=== PATIENT | male | born 1985 | race Caucasian/White ===

== ENCOUNTER 2016-07-27 08:25 | Inpatient (IN) | payer MEDICARE, MEDICAID ==
[~2016-07-27] VITALS: Ht 182.9 cm; Wt 93.6 kg
[2016-07-27 08:28] VITALS: Ht 182.9 cm; Wt 93.6 kg
[2016-07-27] MEDS ORDERED: HYDROmorphONE 1 MG/ML SYG IV STA ×2 (08:39→10:47)
[2016-07-27] MEDS ORDERED: ONDANSETRON 4 MG INJ IV STA (08:39)
[2016-07-27] MEDS ORDERED: SOD CHLORIDE 0.9% 1,000 ML IV STA ×2 (08:39→10:47)
[2016-07-27 09:02] LABS: ADD SCAN DIFF NO
[2016-07-27 09:07] LABS: ABNORMAL IP MESSAGE 1; BASOPHIL # 0.1 10^3/ul (0.0-0.1); BASOPHILS % 0.9 % (0.0-2.0); EOSINOPHILS # 0.3 10^3/ul (0.0-0.5); EOSINOPHILS % 2.3 % (0.0-7.0); HEMATOCRIT 41.2 % (42.0-52.0); HEMOGLOBIN 13.7 g/dl (14.0-18.0); LYMPHOCYTES # 1.3 10^3/ul (0.8-2.9); LYMPHOCYTES % 11.5 % (15.0-51.0); MEAN CORPUSCULAR HEMOGLOBIN 29.3 pg (29.0-33.0); MEAN CORPUSCULAR HGB CONC 33.3 g/dl (32.0-37.0); MEAN CORPUSCULAR VOLUME 88.2 fl (82.0-101.0); MEAN PLATELET VOLUME 13.8 fl (7.4-10.4); MONOCYTE # 0.5 10^3/ul (0.3-0.9); NEUTROPHIL # 8.7 10^3/ul (1.6-7.5); NEUTROPHILS % 79.7 % (39.0-77.0); PLATELET COUNT 252 10^3/UL (140-415); RED BLOOD COUNT 4.67 10^6/ul (4.70-6.10); WHITE BLOOD COUNT 10.9 10^3/ul (4.8-10.8)
[2016-07-27 09:17] LABS: INR 0.82; PARTIAL THROMBOPLASTIN TIME 25.6 Sec (25.0-35.0); PROTIME 11.3 Sec (12.2-14.2); PT RATIO 0.9
[2016-07-27 09:19] LABS: ALANINE AMINOTRANSFERASE 106 IU/L (13-69); ALBUMIN 3.2 g/dl (3.3-4.9); ALBUMIN/GLOBULIN RATIO 0.91; ALKALINE PHOSPHATASE 240 IU/L (42-121); ANION GAP 9 (8-16); ASPARTATE AMINO TRANSFERASE 90 IU/L (15-46); BILIRUBIN,INDIRECT 0.1 mg/dl (0-1.1); BILIRUBIN,TOTAL 0.1 mg/dl (0.2-1.3); BLOOD UREA NITROGEN 21 mg/dl (7-20); CALCIUM 8.7 mg/dl (8.4-10.2); CARBON DIOXIDE 24 mmol/L (21-31); CHLORIDE 106 mmol/L (97-110); CREATININE 2.13 mg/dl (0.61-1.24); GLUCOSE 397 mg/dl (70-220); POTASSIUM 4.6 mmol/L (3.5-5.1); SODIUM 134 mmol/L (135-144); TOTAL PROTEIN 6.7 g/dl (6.1-8.1)
--- NOTE | 2016-07-27 09:20 | ERD ---
ER Documentation Chief Complaint Date/Time DATE: 07/27/16 TIME: 09:19 Chief Complaint right flank pain onset 0400 HPI This is a 30-year-old male with history of diabetes type 2, hypertension, hyperlipidemia presenting to the emergency department complaining of chest pain , right upper quadrant and flank pain since 4:00 this morning. Patient states the pain is 10 out of 10 in his right upper quadrant and radiates to the flank and chest. He describes as sharp. Patient is complaining of nausea and vomiting.. He denies any fevers, diarrhea, shortness of breath. Patient denies taking any medications. Patient denies any alcohol use. Patient admits to having marijuana use. ROS All systems reviewed and are negative except as per history of present illness. Physical Exam Vitals Vital Signs Date Time Temp Pulse Resp B/P Pulse Ox O2 Delivery O2 Flow Rate FiO2 07/27/16 08:28 97.8 101 20 221/109 99 Physical Exam GENERAL: well-developed/well-nourished, in no apparent distress, non-toxic appearing HENT: NC/AT, moist mucous membranes EYES: Conjunctiva normal NECK: Supple, no lymphadenopathy PULM: CTA bilaterally, no rales, rhonchi, or wheezing heard CV: Normal S1S2, RRR, good capillary refill GI: Soft, tender to palpation upper quadrants, right is greater than all other quadrants, Normal bowel sounds, no masses or organomegaly felt on exam No gross peritonitis, no bruits Negative Rovsing, positive Diamond, negative McBurney's point, Negative CVAT BACK: No masses EXT: No clubbing, cyanosis, or edema NEURO: Alert and Orientated SKIN: Intact, normal turgor PSYCH: Normal mood and mentation Result Diagram: 07/27/16 0807/27/16 0855 Results 24 hrs Laboratory Tests Test 07/27/16 08:55 07/27/16 09:27 White Blood Count 10.910^3/ul Red Blood Count 4.6710^6/ul Hemoglobin 13.7g/dl Hematocrit 41.2% Mean Corpuscular Volume 88.2fl Mean Corpuscular Hemoglobin 29.3pg Mean Corpuscular Hemoglobin Concent 33.3g/dl Red Cell Distribution Width 13.0% Platelet Count 92771^3/UL Mean Platelet Volume 13.8fl Neutrophils % 79.7% Lymphocytes % 11.5% Monocytes % 5.0% Eosinophils % 2.3% Basophils % 0.9% Nucleated Red Blood Cells % 0.0/100WBC Neutrophils # 8.710^3/ul Lymphocytes # 1.310^3/ul Monocytes # 0.510^3/ul Eosinophils # 0.310^3/ul Basophils # 0.110^3/ul Nucleated Red Blood Cells # 0.010^3/ul Prothrombin Time 11.3Sec Prothrombin Time Ratio 0.9 INR International Normalized Ratio 0.82 Activated Partial Thromboplast Time 25.6Sec Sodium Level 134mmol/L Potassium Level 4.6mmol/L Chloride Level 106mmol/L Carbon Dioxide Level 24mmol/L Anion Gap 9 Blood Urea Nitrogen 21mg/dl Creatinine 2.13mg/dl Glucose Level 397mg/dl Calcium Level 8.7mg/dl Total Bilirubin 0.1mg/dl Direct Bilirubin 0.00mg/dl Indirect Bilirubin 0.1mg/dl Aspartate Amino Transf (AST/SGOT) 90IU/L Alanine Aminotransferase (ALT/SGPT) 106IU/L Alkaline Phosphatase 240IU/L Troponin I < 0.012ng/ml Total Protein 6.7g/dl Albumin 3.2g/dl Globulin 3.50g/dl Albumin/Globulin Ratio 0.91 Lipase 2131U/L Bedside Glucose 317mg/dL Current Medications Medications (Trade) Dose Ordered Sig/[place] Route PRN Reason Start Time Stop Time Status Last Admin Dose Admin Sodium Chloride (NS) 1,000 ml @ 1,000 mls/hr Q1H STAT IV 07/27/16 08:39 07/27/16 09:38 DC 07/27/16 09:05 Hydromorphone HCl (Dilaudid) 1 mg ONCE STAT IV 07/27/16 08:39 07/27/16 08:42 DC 07/27/16 09:05 Ondansetron HCl (Zofran Inj) 8 mg ONCE STAT IV 07/27/16 08:39 07/27/16 08:42 DC 07/27/16 09:05 Hydromorphone HCl 0.5 mg 0.5 mg ONCE STAT IV 07/27/16 10:47 07/27/16 10:48 DC Sodium Chloride (NS) 1,000 ml @ 1,000 mls/hr Q1H STAT IV 07/27/16 10:47 07/27/16 11:46 Procedures/MDM This is a 30-year-old male presenting to the emergency department complaining of right severe right upper quadrant abdominal pain that radiates to the chest and flank since 4:00 this morning due to pancreatitis, possibly due to cholelithiasis versus other. IV access was established, patient was given 1 mg of Dilaudid, 8 mg of Zofran and 1 L of fluids. Lab work was drawn. Patient had an elevation in lipase at 2131 which signifies pancreatitis. CBC showed mild leukocytosis of 10.9 without any evidence of anemia. Patient had elevated glucose of 397 with mild elevation in transaminases. BUN 21 and creatinine of 2.13 Gallbladder Ultrasound was done, radiologist stated: Cholelithiasis without evidence of abnormal gallbladder wall thickening to suggest cholecystitis. Normal caliber of the intrahepatic and extrahepatic biliary system. EKG: read and signed off by myself and Rate/Rhythm: Normal Sinus Rhythm at 86bpm QRS, ST, T-waves: Nonspecific T-wave changes in leads aVL, nonspecific QRS in V1, T-wave inversion in aVR Impression: No evidence of ischemia or arrhythmia I have consulted my supervising physician who will consult the hospitalist on site for admission. Patient is stable for transfer. Departure Diagnosis: Primary Impression: Pancreatitis Condition: Serious ZITA HO PA-C Jul 27, 2016 09:20
[2016-07-27 09:32] LABS: TROPONIN-I < 0.012 ng/ml (0.00-0.12)
--- NOTE | 2016-07-27 10:37 | RADRPT ---
PROCEDURE: Right upper quadrant abdominal ultrasound. CLINICAL INDICATION: Abdominal pain TECHNIQUE: Cancino scale and color doppler ultrasound images of the right upper quadrant. COMPARISON: None FINDINGS: Pancreas: Visualized portions appear of normal echogenicity, no focal lesions. Liver: Morphology: Minimally enlarged measuring 18.8 cm without focal lesion. Echogenicity: Normal. Focal lesions: None. Main portal vein: Patent with hepatopetal flow. Biliary System: Gallbladder wall thickness upper limits of normal measuring 2.5 - 3 mm. Multiple gallstones are present within the gallbladder. No intrahepatic biliary dilatation. Common bile duct measures 5.1 mm in maximal dimension. Kidneys: Right 12.3 cm in length. Right renal cortical thickness is preserved. Normal echogenicity. No hydronephrosis. No renal calculi. No focal lesions. No free fluid identified. IMPRESSION: Cholelithiasis without evidence of abnormal gallbladder wall thickening to suggest cholecystitis. Normal caliber of the intrahepatic and extrahepatic biliary system. RPTAT: AADD .Everton Caraballo MD, MD Date Time Electronically viewed and signed by .Everton Caraballo MD, on 07/27/2016 10:37 .B/
[2016-07-27] MEDS ORDERED: SOD CHLORIDE 0.9% 1,000 ML IV SCH (11:27)
[2016-07-27] MEDS ORDERED: ACETAMINOPHEN 325 MG TAB PO PRN ×2 (11:30→12:00)
[2016-07-27] MEDS ORDERED: ONDANSETRON 4 MG INJ IV PRN (11:30)
[2016-07-27] MEDS ORDERED: DOCUSATE SODIUM 100 MG CAP PO PRN (12:00)
[2016-07-27] MEDS ORDERED: LORAZEPAM 2 MG INJ IV PRN (12:00)
[2016-07-27] MEDS ORDERED: NICARDipine HCL 30 MG CAPSULE PO ONE (12:00)
[2016-07-27] MEDS ORDERED: NACL 0.9% 3 ML SYG IV SCH (12:00)
[2016-07-27] MEDS ORDERED: ACETAMINOPHEN 650 MG SUPP PR PRN (12:00)
[2016-07-27] MEDS ORDERED: BISACODYL 10 MG SUPP PR PRN (12:00)
[2016-07-27] MEDS ORDERED: DEXTROSE 50% 50 ML SYRINGE IV PRN ×2 (12:30)
[2016-07-27] MEDS ORDERED: GLUCOSE GEL 15 GRAM TUBE BUCCAL PRN (12:30)
[2016-07-27] MEDS ORDERED: GLUCAGON 1 MG INJ IM PRN (12:30)
[2016-07-27] MEDS ORDERED: GLUCOSE GEL 15 GRAM TUBE PO PRN ×2 (12:30)
[2016-07-27 13:46] LABS: ALBUMIN 3.1 g/dl (3.3-4.9); ALBUMIN/GLOBULIN RATIO 0.91; BILIRUBIN,INDIRECT 0.1 mg/dl (0-1.1); BILIRUBIN,TOTAL 0.1 mg/dl (0.2-1.3); CALCIUM 8.3 mg/dl (8.4-10.2); CREATININE 1.9 mg/dl (0.61-1.24); POTASSIUM 4.3 mmol/L (3.5-5.1); TOTAL PROTEIN 6.5 g/dl (6.1-8.1)
[2016-07-27] MEDS: SOD CHLORIDE 0.9% 1,000 ML IV SCH ×2 (13:58→20:30)
[2016-07-27 15:56] VITALS: BP 194/118
[2016-07-27 16:00] VITALS: BP 210/121; PULSE 113
[2016-07-27] MEDS: hydrALAzine 20 MG INJ IV PRN (16:01)
[2016-07-27 16:05] VITALS: BP 194/118; PULSE 113
--- NOTE | 2016-07-27 17:49 | CONS ---
Date/Time of Note Date/Time of Note DATE: 07/27/16 TIME: 17:47 Assessment/Plan Assessment/Plan Additional Assessment/Plan Abdominal pain/nausea/vomiting Pancreatitis Rule out choledocholithiasis IVF Hydration Nausea and pain control NPO till pain free Review MRCP ERCP if clinically indicated, pt advised of R/B/A of procedure and she provides informed consent to proceed Review triglycerides Monitor LFTs, amylase, lipase Surgery following Type 2 diabetes Management per Primary Accu-Cheks per protocol Obesity Management per Primary Encourage weight loss Question of alcoholism Management per Primary Review tox screen Further recommendations depend on clinical course Patient seen in collaboration with Dr. Castro Consultation Date/Type/Reason Admit Date/Time Jul 27, 2016 at 11:29 Type of Consultation: Gastroenterology Hx of Present Illness Mr. Lebron May is a 30-year-old male that presented to ED with reports of chest pain, right upper abdominal pain, nausea, nonbloody bilious vomiting 1 day. Patient denies fever, diarrhea, shortness of breath, any new medications, and current alcohol use. Patient admits to having marijuana use. Patient has past medical history of diabetes type 2, hypertension, and hyperlipidemia Exam/Review of Systems Vital Signs Vitals Vital Signs Date Time Temp Pulse Resp B/P Pulse Ox O2 Delivery O2 Flow Rate FiO2 07/27/16 16:05 113 194/118 07/27/16 14:55 18 98 Room Air 07/27/16 08:28 97.8 Exam Constitutional: alert, oriented, well developed Psych: nl mood/affect Head: normocephalic Eyes: EOMI, nl conjunctiva, nl lids ENMT: nl external ears & nose, nl lips & teeth, nl nasal mucosa & septum Respiratory: clear to auscultation, normal air movement Cardiovascular: regular rate and rhythm Gastrointestinal: soft, diffuse abdominal tenderness Musculoskeletal: nl extremities to inspection Neurological: COLOR [employer]INT INSPECTOR II-XII intact Results Result Diagram: 07/27/16 0855 07/27/16 1325 Results 24 hrs Laboratory Tests Test 07/27/16 08:55 07/27/16 09:27 07/27/16 13:25 07/27/16 17:18 White Blood Count 10.9 H Red Blood Count 4.67 L Hemoglobin 13.7 L Hematocrit 41.2 L Mean Corpuscular Volume 88.2 Mean Corpuscular Hemoglobin 29.3 Mean Corpuscular Hemoglobin Concent 33.3 Red Cell Distribution Width 13.0 Platelet Count 252 Mean Platelet Volume 13.8 H Neutrophils % 79.7 H Lymphocytes % 11.5 L Monocytes % 5.0 Eosinophils % 2.3 Basophils % 0.9 Nucleated Red Blood Cells % 0.0 Neutrophils # 8.7 H Lymphocytes # 1.3 Monocytes # 0.5 Eosinophils # 0.3 Basophils # 0.1 Nucleated Red Blood Cells # 0.0 Prothrombin Time 11.3 L Prothrombin Time Ratio 0.9 INR International Normalized Ratio 0.82 Activated Partial Thromboplast Time 25.6 Sodium Level 134 L 135 Potassium Level 4.6 4.3 Chloride Level 106 109 Carbon Dioxide Level 24 23 Anion Gap 9 7 L Blood Urea Nitrogen 21 H 19 Creatinine 2.13 H 1.90 H Glucose Level 397 H 325 H Calcium Level 8.7 8.3 L Total Bilirubin 0.1 L 0.1 L Direct Bilirubin 0.00 0.00 Indirect Bilirubin 0.1 0.1 Aspartate Amino Transf (AST/SGOT) 90 H 65 H Alanine Aminotransferase (ALT/SGPT) 106 H 87 H Alkaline Phosphatase 240 H 223 H Troponin I < 0.012 Total Protein 6.7 6.5 Albumin 3.2 L 3.1 L Globulin 3.50 H 3.40 H Albumin/Globulin Ratio 0.91 0.91 Lipase 2131 H Bedside Glucose 317 H 251 H Lactic Acid Level 0.7 Medications Medications Current Medications Sodium Chloride 1,000 ml @ 80 mls/hr [id number] IV ; Start 07/27/16 at 11:27; Stop 07/27/16 at 23:56 Sodium Chloride (NS) 1,000 ml @ 125 mls/hr Q8H IV Last administered on t 13:58; Admin Dose 125 MLS/HR; Start 07/27/16 at 12:30 Lorazepam (Ativan) 0.5 mg Q6H PRN IV ANXIETY; Start 07/27/16 at 12:00 Ondansetron HCl (Zofran Inj) 4 mg Q6H PRN IV NAUSEA AND/OR VOMITING; Start at 12:00 Acetaminophen (Tylenol Tab) 650 mg Q6H PRN PO PAIN LEVEL 1-3 OR FEVER; Start at 12:00 Acetaminophen (Tylenol Supp) 650 mg Q6H PRN [place] PAIN LEVEL 1-3 OR FEVER; Start 07/27/16 at 12:00 Morphine Sulfate (morphine) 2 mg Q4H PRN IV PAIN LEVEL 7-10; Start 07/27/16 at 12:00 Docusate Sodium (Colace) 100 mg Q12H PRN PO CONSTIPATION; Start 07/27/16 at 12: 00 Bisacodyl (Dulcolax Supp) 10 mg DAILY PRN [place] CONSTIPATION; Start 07/27/16 at 12 :00 Famotidine (Pepcid Iv) 20 mg Q12 IV ; Start 07/27/16 at 21:00 Insulin Aspart (Novolog Insulin Pen) NOVOLOG *MILD* ALGORI... Q4 SC ; Start at 21:00 Hydralazine HCl 10 mg 10 mg Q6H PRN IV ELEVATED BLOOD PRESSURE Last administered on 07/27/16t 16:01; Admin Dose 10 MG; Start 07/27/16 at 12:00 Multivitamins/ Thiamine HCl/ Folic Acid/Sodium Chloride (Mvi Adult/ Vitamin B1/ Folic Acid/NS) 1,011.2 ml @ 125 mls/ hr DAILY@09 IVPB ; Start 07/28/16 at 09:00 Hydralazine HCl (Apresoline) 25 mg Q8 PO ; Start 07/27/16 at 22:00 Miscellaneous Information 1 ea NOTE XX ; Start 07/27/16 at 12:30 Glucose (Glutose) 15 gm Q15M PRN PO DECREASED GLUCOSE; Start 07/27/16 at 12:30 Glucose (Glutose) 22.5 gm Q15M PRN PO DECREASED GLUCOSE; Start 07/27/16 at 12: 30 Dextrose (D50w Syringe) 25 ml Q15M PRN IV DECREASED GLUCOSE; Start 07/27/16 at 12:30 Dextrose (D50w Syringe) 50 ml Q15M PRN IV DECREASED GLUCOSE; Start 07/27/16 at 12:30 Glucagon (Glucagen) 1 mg Q15M PRN IM DECREASED GLUCOSE; Start 07/27/16 at 12:30 Glucose (Glutose) 15 gm Q15M PRN BUCCAL DECREASED GLUCOSE; Start 07/27/16 at 12 :30 Amlodipine Besylate (Norvasc) 10 mg DAILY PO ; Start 07/28/16 at 09:00 JENNIFER SMITH Jul 27, 2016 17:49
[2016-07-27] MEDS: morphine 2 MG INJ IV PRN ×2 (17:55→22:25)
[2016-07-27 18:04] VITALS: BP 174/106; PULSE 110; RESP 17
--- NOTE | 2016-07-27 18:43 | HP ---
Date/Time of Note Date/Time of Note DATE: 07/27/16 TIME: 17:53 Assessment/Plan VTE Prophylaxis VTE Prophylaxis Intervention: SCD's Lines/Catheters IV [facility]ter [facility]from [facility]): Peripheral IV Central line still needed: No Urinary Cath still in place: No Assessment/Plan Chief Complaint/Hosp Course This is a 30 year old male admitted to [facility] for: 1) Acute pancreatitis: gallstones vs. alcohol vs. triglycerides. U/S of RUQ showed gallstones. Will order MRCP to further assess. Trend LFTs, lipase, lactic acid. lipid panel. NPO, NS@125cc/hr, morphine 2mg q 4hrs, adjust pain meds for comfort. Check blood alcohol level, though patient denies recent alcohol use. Banana bag. GI consult . 2) DM : elevated blood sugars, insulin sliding scale, check a1c, will start DM meds/insulin as indicated, Avoid MASON/ARB as history of angiedema from MASON 3) TOM: patient is not aware of any kidney issues, however with his long standing history of HTN and DM we will assess for CKD. Recheck BMP follow Cr. Avoid MASON/ARB as history of angioedema from MAS[place], avoid nephrotoxins 4) Gallstones: ERCP ordered, GI consulted 5) HTN: start norvasc, hydralazine prn, Avoid MASON/ARB as history of angioedema from [place] 6)HLD: check lipid panel, likely will need statins as he has DM. 7) Lower extremity edema: patient reports chest pain occuring over the past 6 months with activity and rest, currently does not have any chest pain, Troponin negative x1. Will check an echocardiogram. And proceed with further evaluation as indicated. 8) DVT prophylaxis: SCDs 9) GI prophylaxis: famotidine IV Problems: HPI/ROS Admit Date/Time Admit Date/Time Jul 27, 2016 at 11:29 Hx of Present Illness This is a 30 year old male with a past medical history of DM, HLD, HTN who came into the ED with 1 day of abdominal pain. Patient states he was sleeping this morning and woke up to a sharp stabbing pain in the middle of his abdomen. It was 10/10 in intensity. He also then started having nausea and vomitting. He was brought to the ED by his parents. Since his admission he has not vomitted anymore, though he does feel nauseous. Allergies: benazepril (angioedema) Meds: currently not on any meds. ROS Constitutional: improved, nausea Eyes: other (left eye blindess (chronic)) ENT: No bleeding, No congestion, No discharge, No dysphagia, No no complaints, No other, No pain, No sore throat Respiratory: No cough, No no complaints, No other, No pain, No pleuritic pain, No shortness of breath, No sputum, No wheezing Cardiovascular: No chest pain, No edema, No lightheadedness, No no complaints, No orthopenea, No other, No palpitations, No paroxysmal nocturnal dyspnea Gastrointestinal: nausea, pain Genitourinary: No bleeding, No discharge, No dysuria, No flank pain, No hematuria, No no complaints, No other Musculoskeletal: No back pain, No bone/joint pain, No neck pain, No no complaints, No other, No restricted range of motion, No swelling Skin: No bruising, No erythema, No laceration, No no complaints, No other, No pruritis, No rash, No skin lesions Neurologic: No confusion, No dizziness, No focal-weakness, No headache, No no complaints, No other, No seizure, No syncope Endocrine: No dry skin, No no complaints, No other, No polydypsia, No polyuria , No temp intolerance, No weight change Psychological: depression (history of depression) PMH/Family/Social Past Medical History Medical History: diabetes, high cholesterol, hypertension, other (Left eye blindness 2/2 diabetic retinopathy, Appendicitis) Past Surgical History Multiple laser eye surgeries for diabetic retinopathy, appendectomy Family History Significant Family History: diabetes Social History Alcohol Use: other (States last drink was on New Years) Drug Use: marijuana Exam/Review of Systems Vital Signs Vitals Vital Signs Date Time Temp Pulse Resp B/P Pulse Ox O2 Delivery O2 Flow Rate FiO2 07/27/16 16:05 113 194/118 07/27/16 14:55 18 98 Room Air 07/27/16 08:28 97.8 Exam Exam general: Currently patient is in no acute distress, pleasant HEENT: left eye/eyelid abnormality, NC/AT, Neck: supple, non tender CVS: RRR, no murmurs appreciated Lungs: ctab, no rales, no wheezes Abdomen: tender to palpation at epigastrium/RUQ, positive bowel sounds, no ascites Extremities: trace edema of bilateral lower extremities at level of ankles, normal ROM of bilateral upper and lower extremities, normal sensation of feet bilaterally Neuro: A+O x 3, CN 2-12 intact, however unable to assess for left as due to blindness. Psych: coherent, pleasant interaction Skin: multiple tattoos, onychomycosis of feet bilaterally Labs Result Diagram: 07/27/16 0855 07/27/16 1325 Medications Medications Current Medications Sodium Chloride 1,000 ml @ 80 mls/hr [id number] IV ; Start 07/27/16 at 11:27; Stop 07/27/16 at 23:56 Sodium Chloride (NS) 1,000 ml @ 125 mls/hr Q8H IV Last administered on 13:58; Admin Dose 125 MLS/HR; Start 07/27/16 at 12:30 Lorazepam (Ativan) 0.5 mg Q6H PRN IV ANXIETY; Start 07/27/16 at 12:00 Ondansetron HCl (Zofran Inj) 4 mg Q6H PRN IV NAUSEA AND/OR VOMITING; Start at 12:00 Acetaminophen (Tylenol Tab) 650 mg Q6H PRN PO PAIN LEVEL 1-3 OR FEVER; Start at 12:00 Acetaminophen (Tylenol Supp) 650 mg Q6H PRN [place] PAIN LEVEL 1-3 OR FEVER; Start 07/27/16 at 12:00 Morphine Sulfate (morphine) 2 mg Q4H PRN IV PAIN LEVEL 7-10; Start 07/27/16 at 12:00 Docusate Sodium (Colace) 100 mg Q12H PRN PO CONSTIPATION; Start 07/27/16 at 12: 00 Bisacodyl (Dulcolax Supp) 10 mg DAILY PRN [place] CONSTIPATION; Start 07/27/16 at 12 :00 Famotidine (Pepcid Iv) 20 mg Q12 IV ; Start 07/27/16 at 21:00 Insulin Aspart (Novolog Insulin Pen) NOVOLOG *MILD* ALGORI... Q4 SC ; Start at 21:00 Hydralazine HCl 10 mg 10 mg Q6H PRN IV ELEVATED BLOOD PRESSURE Last administered on 07/27/16 16:01; Admin Dose 10 MG; Start 07/27/16 at 12:00 Multivitamins/ Thiamine HCl/ Folic Acid/Sodium Chloride (Mvi Adult/ Vitamin B1/ Folic Acid/NS) 1,011.2 ml @ 125 mls/ hr DAILY@09 IVPB ; Start 07/28/16 at 09:00 Hydralazine HCl (Apresoline) 25 mg Q8 PO ; Start 07/27/16 at 22:00 Miscellaneous Information 1 ea NOTE XX ; Start 07/27/16 at 12:30 Glucose (Glutose) 15 gm Q15M PRN PO DECREASED GLUCOSE; Start 07/27/16 at 12:30 Glucose (Glutose) 22.5 gm Q15M PRN PO DECREASED GLUCOSE; Start 07/27/16 at 12: 30 Dextrose (D50w Syringe) 25 ml Q15M PRN IV DECREASED GLUCOSE; Start 07/27/16 at 12:30 Dextrose (D50w Syringe) 50 ml Q15M PRN IV DECREASED GLUCOSE; Start 07/27/16 at 12:30 Glucagon (Glucagen) 1 mg Q15M PRN IM DECREASED GLUCOSE; Start 07/27/16 at 12:30 Glucose (Glutose) 15 gm Q15M PRN BUCCAL DECREASED GLUCOSE; Start 07/27/16 at 12 :30 Amlodipine Besylate (Norvasc) 10 mg DAILY PO ; Start 07/28/16 at 09:00 DANETTE GO Jul 27, 2016 18:04
[2016-07-27 20:00] VITALS: BP 220/126; PULSE 115; RESP 18
[2016-07-27 20:28] VITALS: BP 148/96; PULSE 119; RESP 20
[2016-07-27] MEDS: FAMOTIDINE 20 MG INJ IV SCH (21:09)
[2016-07-27] MEDS: ONDANSETRON 4 MG INJ IV PRN (22:25)
[2016-07-27] MEDS: INSULIN ASPART [NOVOLOG] 3 ML PEN SC SCH (22:35)
[2016-07-28] VITALS (17 sets, daily range): BP systolic 142–205; BP diastolic 77–112; PULSE 90–125; RESP 15–20
[2016-07-28] MEDS: hydrALAzine 20 MG INJ IV PRN ×4 (00:44→17:59)
[2016-07-28] MEDS: SOD CHLORIDE 0.9% 1,000 ML IV SCH ×3 (00:52→20:30)
[2016-07-28] MEDS: INSULIN ASPART [NOVOLOG] 3 ML PEN SC SCH ×6 (01:05→21:00)
[2016-07-28 07:12] LABS: ADD SCAN DIFF NO
[2016-07-28 07:21] LABS: ABNORMAL IP MESSAGE 1; BASOPHIL # 0.1 10^3/ul (0.0-0.1); BASOPHILS % 0.9 % (0.0-2.0); EOSINOPHILS # 0.2 10^3/ul (0.0-0.5); EOSINOPHILS % 2.1 % (0.0-7.0); HEMATOCRIT 36.7 % (42.0-52.0); HEMOGLOBIN 11.9 g/dl (14.0-18.0); LYMPHOCYTES # 1.7 10^3/ul (0.8-2.9); LYMPHOCYTES % 16.3 % (15.0-51.0); MEAN CORPUSCULAR HGB CONC 32.4 g/dl (32.0-37.0); MEAN CORPUSCULAR VOLUME 89.5 fl (82.0-101.0); MEAN PLATELET VOLUME 13.7 fl (7.4-10.4); MONOCYTE # 0.7 10^3/ul (0.3-0.9); MONOCYTES % 6.5 % (0.0-11.0); NEUTROPHIL # 7.7 10^3/ul (1.6-7.5); NEUTROPHILS % 73.8 % (39.0-77.0); PLATELET COUNT 214 10^3/UL (140-415); RED CELL DISTRIBUTION WIDTH 13.2 % (11.5-14.5); WHITE BLOOD COUNT 10.5 10^3/ul (4.8-10.8)
--- NOTE | 2016-07-28 07:33 | RADRPT ---
PROCEDURE: MR Abdomen. CLINICAL INDICATION: Abdominal pain. Gallstones. Question choledocholithiasis. Gallstone pancrea titis and elevated liver function tests. TECHNIQUE: Multiplanar multi sequence imaging of the abdomen without contrast. COMPARISON: Ultrasound from 07/27/2016 FINDINGS: MRI Abdomen: The study was limited to evaluation of the hepatobiliary system. Distended gallbladder with multipl e small stones is seen. Mildly thickened gallbladder wall. The study is significantly limited by b reathing motion. No gross biliary or pancreatic ductal dilatation is seen. It is difficult to excl ude tiny biliary duct stones given the degree of motion artifact present. No gross hepatic mass. The pancreas is diffusely enlarged and edematous with surrounding fluid consistent with acute pancreati tis. No focal fluid collection is seen. No gross abnormality of the spleen, adrenals, or kidneys is seen.. IMPRESSION: Acute pancreatitis. Peripancreatic fluid without definite focal loculated collection. Multiple sma ll gallstones. No biliary ductal dilatation. It is difficult to completely exclude choledocholithi asis given the degree of breathing motion artifact present.. CT of the abdomen pelvis with IV and o ral contrast may be helpful for evaluation of the solid intra-abdominal organs and to evaluate for p ancreatic necrosis or other pancreatitis related complications. RPTAT: HL[facility] Physician Whitney Date Time Electronically viewed and signed by Physician Whitney on 07/28/2016 07:32 LE/
[2016-07-28 07:41] LABS: ALBUMIN 2.3 g/dl (3.3-4.9); ALBUMIN/GLOBULIN RATIO 0.82; BILIRUBIN,INDIRECT 0.2 mg/dl (0-1.1); BILIRUBIN,TOTAL 0.2 mg/dl (0.2-1.3); CALCIUM 8.2 mg/dl (8.4-10.2); CHOL/HDL RATIO 6.4 RATIO; CREATININE 1.77 mg/dl (0.61-1.24); MAGNESIUM 1.8 mg/dl (1.7-2.5); POTASSIUM 4.3 mmol/L (3.5-5.1); TOTAL PROTEIN 5.1 g/dl (6.1-8.1)
[2016-07-28] MEDS: FAMOTIDINE 20 MG INJ IV SCH ×2 (08:08→21:01)
[2016-07-28] MEDS: AMLODIPINE 10 MG TAB PO SCH (08:09)
--- NOTE | 2016-07-28 08:14 | CONS ---
Date/Time of Note Date/Time of Note DATE: 07/28/16 TIME: 08:09 Assessment/Plan Assessment/Plan Chief Complaint/Hosp Course Mr. Lebron May is a 30-year-old male that presented to ED with reports of chest pain, right upper abdominal pain, nausea, nonbloody bilious vomiting 1 day. Patient denies fever, diarrhea, shortness of breath, any new medications, and current alcohol use. Patient admits to having marijuana use. Patient has past medical history of diabetes type 2, hypertension, and hyperlipidemia Problems: Additional Assessment/Plan Abdominal pain/nausea/vomiting Pancreatitis Rule out choledocholithiasis IVF Hydration Nausea and pain control NPO till pain free MRCP: Acute pancreatitis. Peripancreatic fluid without definite focal loculated collection. Multiple small gallstones. No biliary ductal dilatation. It is difficult to completely exclude choledocholithiasis given the degree of breathing motion artifact present. Review CT abdomen pelvis ERCP if clinically indicated, pt advised of R/B/A of procedure and she provides informed consent to proceed Monitor LFTs, amylase, lipase Surgery following Type 2 diabetes Management per Primary Accu-Cheks per protocol Obesity Management per Primary Encourage weight loss Question of alcoholism Management per Primary Review tox screen Further recommendations depend on clinical course Patient seen in collaboration with Dr. Castro Consultation Date/Type/Reason Admit Date/Time Jul 27, 2016 at 11:29 Initial Consult Date Type of Consultation: Gastroenterology 24 HR Interval Summary Free Text/Dictation Lipase within normal limits Patient reports diffuse abdominal pain MRCP unable to completely rule out choledocholithiasis CT abdomen pelvis with oral and IV contrast in process Exam/Review of Systems Vital Signs Vitals Vital Signs Date Time Temp Pulse Resp B/P Pulse Ox O2 Delivery O2 Flow Rate FiO2 07/28/16 07:17 98.3 101 18 174/96 96 07/27/16 20:28 Room Air Intake and Output 07/27/16 07/27/16 07/28/16 15:00 23:00 07:00 Intake Total 1125 ml Balance 1125 ml Exam Constitutional: alert, oriented, well developed Psych: nl mood/affect Head: normocephalic Eyes: EOMI, nl conjunctiva, nl lids ENMT: nl external ears & nose, nl lips & teeth, nl nasal mucosa & septum Respiratory: clear to auscultation, normal air movement Cardiovascular: regular rate and rhythm Gastrointestinal: soft, diffuse abdominal tenderness Musculoskeletal: nl extremities to inspection Neurological: [employer] II-XII intact Results Result Diagram: 07/28/16 0625 07/28/16 0625 Results 24 hrs Laboratory Tests Test 07/27/16 08:55 07/27/16 09:27 07/27/16 13:25 07/27/16 17:18 White Blood Count 10.9 H Red Blood Count 4.67 L Hemoglobin 13.7 L Hematocrit 41.2 L Mean Corpuscular Volume 88.2 Mean Corpuscular Hemoglobin 29.3 Mean Corpuscular Hemoglobin Concent 33.3 Red Cell Distribution Width 13.0 Platelet Count 252 Mean Platelet Volume 13.8 H Neutrophils % 79.7 H Lymphocytes % 11.5 L Monocytes % 5.0 Eosinophils % 2.3 Basophils % 0.9 Nucleated Red Blood Cells % 0.0 Neutrophils # 8.7 H Lymphocytes # 1.3 Monocytes # 0.5 Eosinophils # 0.3 Basophils # 0.1 Nucleated Red Blood Cells # 0.0 Prothrombin Time 11.3 L Prothrombin Time Ratio 0.9 INR International Normalized Ratio 0.82 Activated Partial Thromboplast Time 25.6 Sodium Level 134 L 135 Potassium Level 4.6 4.3 Chloride Level 106 109 Carbon Dioxide Level 24 23 Anion Gap 9 7 L Blood Urea Nitrogen 21 H 19 Creatinine 2.13 H 1.90 H Glucose Level 397 H 325 H Calcium Level 8.7 8.3 L Total Bilirubin 0.1 L 0.1 L Direct Bilirubin 0.00 0.00 Indirect Bilirubin 0.1 0.1 Aspartate Amino Transf (AST/SGOT) 90 H 65 H Alanine Aminotransferase (ALT/SGPT) 106 H 87 H Alkaline Phosphatase 240 H 223 H Troponin I < 0.012 Total Protein 6.7 6.5 Albumin 3.2 L 3.1 L Globulin 3.50 H 3.40 H Albumin/Globulin Ratio 0.91 0.91 Lipase 2131 H Bedside Glucose 317 H 251 H Lactic Acid Level 0.7 Test 07/27/16 18:18 07/27/16 22:23 07/28/16 00:59 07/28/16 05:01 Ethyl Alcohol Level < 10.0 Bedside Glucose 187 193 144 Test 07/28/16 06:25 07/28/16 07:29 White Blood Count 10.5 Red Blood Count 4.10 L Hemoglobin 11.9 L Hematocrit 36.7 L Mean Corpuscular Volume 89.5 Mean Corpuscular Hemoglobin 29.0 Mean Corpuscular Hemoglobin Concent 32.4 Red Cell Distribution Width 13.2 Platelet Count 214 Mean Platelet Volume 13.7 H Neutrophils % 73.8 Lymphocytes % 16.3 Monocytes % 6.5 Eosinophils % 2.1 Basophils % 0.9 Nucleated Red Blood Cells % 0.0 Neutrophils # 7.7 H Lymphocytes # 1.7 Monocytes # 0.7 Eosinophils # 0.2 Basophils # 0.1 Nucleated Red Blood Cells # 0.0 Sodium Level 138 Potassium Level 4.3 Chloride Level 114 H Carbon Dioxide Level 24 Anion Gap 4 L Blood Urea Nitrogen 15 Creatinine 1.77 H Glucose Level 169 # Calcium Level 8.2 L Magnesium Level 1.8 Total Bilirubin 0.2 Direct Bilirubin 0.00 Indirect Bilirubin 0.2 Aspartate Amino Transf (AST/SGOT) 22 # Alanine Aminotransferase (ALT/SGPT) 56 Alkaline Phosphatase 151 H Total Protein 5.1 #L Albumin 2.3 L Globulin 2.80 Albumin/Globulin Ratio 0.82 Triglycerides Level 192 H Cholesterol Level 187 LDL Cholesterol, Calculated 120 HDL Cholesterol 29 Cholesterol/HDL Ratio 6.4 Lipase 119 Bedside Glucose 149 Medications Medications Current Medications Sodium Chloride (NS) 1,000 ml @ 125 mls/hr Q8H IV Last administered on 00:52; Admin Dose 125 MLS/HR; Start 07/27/16 at 12:30 Lorazepam (Ativan) 0.5 mg Q6H PRN IV ANXIETY; Start 07/27/16 at 12:00 Ondansetron HCl (Zofran Inj) 4 mg Q6H PRN IV NAUSEA AND/OR VOMITING Last administered on 07/27/16 22:25; Admin Dose 4 MG; Start 07/27/16 at 12:00 Acetaminophen (Tylenol Tab) 650 mg Q6H PRN PO PAIN LEVEL 1-3 OR FEVER; Start at 12:00 Acetaminophen (Tylenol Supp) 650 mg Q6H PRN [place] PAIN LEVEL 1-3 OR FEVER; Start 07/27/16 at 12:00 Morphine Sulfate (morphine) 2 mg Q4H PRN IV PAIN LEVEL 7-10 Last administered on 07/27/16 22:25; Admin Dose 2 MG; Start 07/27/16 at 12:00 Docusate Sodium (Colace) 100 mg Q12H PRN PO CONSTIPATION; Start 07/27/16 at 12: 00 Bisacodyl (Dulcolax Supp) 10 mg DAILY PRN [place] CONSTIPATION; Start 07/27/16 at 12 :00 Famotidine (Pepcid Iv) 20 mg Q12 IV Last administered on 07/27/16 21:09; Admin Dose 20 MG; Start 07/27/16 at 21:00 Insulin Aspart (Novolog Insulin Pen) NOVOLOG *MILD* ALGORI... Q4 SC Last administered on 07/28/16 07:33; Admin Dose 1 UNIT; Start 07/27/16 at 21:00 Hydralazine HCl 10 mg 10 mg Q6H PRN IV ELEVATED BLOOD PRESSURE Last administered on 07/28/16 00:44; Admin Dose 10 MG; Start 07/27/16 at 12:00 Multivitamins/ Thiamine HCl/ Folic Acid/Sodium Chloride (Mvi Adult/ Vitamin B1/ Folic Acid/NS) 1,011.2 ml @ 125 mls/ hr DAILY@09 IVPB ; Start 07/28/16 at 09:00 Hydralazine HCl (Apresoline) 25 mg Q8 PO Last administered on 07/28/16 06:09; Admin Dose 25 MG; Start 07/27/16 at 22:00 Miscellaneous Information 1 ea NOTE XX ; Start 07/27/16 at 12:30 Glucose (Glutose) 15 gm Q15M PRN PO DECREASED GLUCOSE; Start 07/27/16 at 12:30 Glucose (Glutose) 22.5 gm Q15M PRN PO DECREASED GLUCOSE; Start 07/27/16 at 12: 30 Dextrose (D50w Syringe) 25 ml Q15M PRN IV DECREASED GLUCOSE; Start 07/27/16 at 12:30 Dextrose (D50w Syringe) 50 ml Q15M PRN IV DECREASED GLUCOSE; Start 07/27/16 at 12:30 Glucagon (Glucagen) 1 mg Q15M PRN IM DECREASED GLUCOSE; Start 07/27/16 at 12:30 Glucose (Glutose) 15 gm Q15M PRN BUCCAL DECREASED GLUCOSE; Start 07/27/16 at 12 :30 Amlodipine Besylate (Norvasc) 10 mg DAILY PO ; Start 07/28/16 at 09:00 JENNIFER SMITH Jul 28, 2016 08:14
[2016-07-28] MEDS ORDERED: BARIUM SULF 2% 450 ML BTL (BERRY SMOOTHIE) PO ONE (08:30)
[2016-07-28] MEDS: MULTIVITAMINS 10 ML, THIAMINE 100 MG, FOLIC ACID 1 MG in SOD CHLORIDE 0.9% 1,000 ML IVPB SCH (09:36)
[2016-07-28] MEDS: ONDANSETRON 4 MG INJ IV PRN (10:57)
[2016-07-28] MEDS: morphine 2 MG INJ IV PRN (10:57)
[2016-07-28] MEDS ORDERED: SOD CHLORIDE 0.9% 100 ML ONE (12:47)
[2016-07-28] MEDS ORDERED: IODIXANOL LOCM 100 ML BTL ONE (12:47)
--- NOTE | 2016-07-28 15:06 | PDOCDIS ---
Discharge Instructions CONDITION Patient Condition: Good HOME CARE INSTRUCTIONS: Special Diet: LOW CARB ACTIVITY: Activity Restrictions: No Restrictions FOLLOW UP/APPOINTMENTS Appointments F/U WITH YOUR PCP IN 1-2 WEEKS RAHAT LOU Jul 28, 2016 15:06
[2016-07-28] MEDS ORDERED: hydrALAzine 20 MG INJ ONE (16:02)
[2016-07-28] MEDS ORDERED: HYDROCHLOROTHIAZIDE 25 MG TAB PO ONE (17:00)
[2016-07-28] MEDS ORDERED: AMLODIPINE 10 MG TAB PO ONE (17:00)
--- NOTE | 2016-07-28 17:33 | PN ---
Date/Time of Note Date/Time of Note DATE: 07/28/16 TIME: 17:29 Assessment/Plan VTE Prophylaxis VTE Prophylaxis Intervention: SCD's Lines/Catheters IV C[facility] Type [facility] Saline Lock Urinary Cath still in place: No Assessment/Plan Chief Complaint/Hosp Course 1) Acute pancreatitis: gallstones vs. alcohol vs. triglycerides. U/S of RUQ showed gallstones MRCP shows no choledocholithiasis Start clear liquid diet as lipase is now normal 2) DM : Poorly controlled Lifestyle changes advised 3) TOM-improved 4) HTN: BP severely elevated at this time Resume Norvasc, hydralazine prn Avoid [facility]/ARB as history of angioedema from [facility] 5)HLD: Resume statin upon DC 7) Lower extremity edema: patient reports chest pain occurring over the past 6 months with activity and rest, currently does not have any chest pain, Troponin negative x1. Will check an echocardiogram. And proceed with further evaluation as indicated. 8) DVT prophylaxis: SCDs 9) GI prophylaxis: famotidine IV Problems: Subjective 24 Hr Interval Summary Constitutional: no complaints Exam/Review of Systems Vital Signs Vitals Vital Signs Date Time Temp Pulse Resp B/P Pulse Ox O2 Delivery O2 Flow Rate FiO2 07/28/16 17:01 112 182/101 07/28/16 11:33 98.0 18 96 07/27/16 20:28 Room Air Intake and Output 07/27/16 07/27/16 07/28/16 15:00 23:00 07:00 Intake Total 1125 ml Balance 1125 ml Exam Constitutional: alert, oriented Respiratory: clear to auscultation Cardiovascular: regular rate and rhythm Gastrointestinal: non-tender, soft, No distended Musculoskeletal: nl extremities to inspection Results Result Diagram: 07/28/16 0625 07/28/16 0625 Results 24 hrs Laboratory Tests Test 07/27/16 18:18 07/27/16 22:23 07/28/16 00:59 07/28/16 05:01 Ethyl Alcohol Level < 10.0 Bedside Glucose 187 193 144 Test 07/28/16 06:25 07/28/16 07:29 07/28/16 11:59 07/28/16 16:47 White Blood Count 10.5 Red Blood Count 4.10 L Hemoglobin 11.9 L Hematocrit 36.7 L Mean Corpuscular Volume 89.5 Mean Corpuscular Hemoglobin 29.0 Mean Corpuscular Hemoglobin Concent 32.4 Red Cell Distribution Width 13.2 Platelet Count 214 Mean Platelet Volume 13.7 H Neutrophils % 73.8 Lymphocytes % 16.3 Monocytes % 6.5 Eosinophils % 2.1 Basophils % 0.9 Nucleated Red Blood Cells % 0.0 Neutrophils # 7.7 H Lymphocytes # 1.7 Monocytes # 0.7 Eosinophils # 0.2 Basophils # 0.1 Nucleated Red Blood Cells # 0.0 Sodium Level 138 Potassium Level 4.3 Chloride Level 114 H Carbon Dioxide Level 24 Anion Gap 4 L Blood Urea Nitrogen 15 Creatinine 1.77 H Glucose Level 169 # Hemoglobin A1c 9.9 H Calcium Level 8.2 L Magnesium Level 1.8 Total Bilirubin 0.2 Direct Bilirubin 0.00 Indirect Bilirubin 0.2 Aspartate Amino Transf (AST/SGOT) 22 # Alanine Aminotransferase (ALT/SGPT) 56 Alkaline Phosphatase 151 H Total Protein 5.1 #L Albumin 2.3 L Globulin 2.80 Albumin/Globulin Ratio 0.82 Triglycerides Level 192 H Cholesterol Level 187 LDL Cholesterol, Calculated 120 HDL Cholesterol 29 Cholesterol/HDL Ratio 6.4 Lipase 119 Bedside Glucose 149 169 139 Medications Medications Current Medications Sodium Chloride (NS) 1,000 ml @ 125 mls/hr Q8H IV Last administered on 12:02; Admin Dose 125 MLS/HR; Start 07/27/16 at 12:30 Lorazepam (Ativan) 0.5 mg Q6H PRN IV ANXIETY; Start 07/27/16 at 12:00 Ondansetron HCl (Zofran Inj) 4 mg Q6H PRN IV NAUSEA AND/OR VOMITING Last administered on 07/28/16 10:57; Admin Dose 4 MG; Start 07/27/16 at 12:00 Acetaminophen (Tylenol Tab) 650 mg Q6H PRN PO PAIN LEVEL 1-3 OR FEVER; Start at 12:00 Acetaminophen (Tylenol Supp) 650 mg Q6H PRN [place] PAIN LEVEL 1-3 OR FEVER; Start 07/27/16 at 12:00 Morphine Sulfate (morphine) 2 mg Q4H PRN IV PAIN LEVEL 7-10 Last administered on 07/28/16 10:57; Admin Dose 2 MG; Start 07/27/16 at 12:00 Docusate Sodium (Colace) 100 mg Q12H PRN PO CONSTIPATION; Start 07/27/16 at 12: 00 Bisacodyl (Dulcolax Supp) 10 mg DAILY PRN [place] CONSTIPATION; Start 07/27/16 at 12 :00 Famotidine (Pepcid Iv) 20 mg Q12 IV Last administered on 07/28/16 08:08; Admin Dose 20 MG; Start 07/27/16 at 21:00 Insulin Aspart NOVOLOG *MILD* ALGORI... Q4 SC Last administered on 07/28/16 12 :06; Admin Dose 1 UNIT; Start 07/27/16 at 21:00 Multivitamins/ Thiamine HCl/ Folic Acid/Sodium Chloride (Mvi Adult/ Vitamin B1/ Folic Acid/NS) 1,011.2 ml @ 125 mls/ hr DAILY@09 IVPB Last administered on 09:36; Admin Dose 125 MLS/HR; Start 07/28/16 at 09:00 Hydralazine HCl (Apresoline) 25 mg Q8 PO Last administered on 07/28/16 14:12; Admin Dose 25 MG; Start 07/27/16 at 22:00 Miscellaneous Information 1 ea NOTE XX ; Start 07/27/16 at 12:30 Glucose (Glutose) 15 gm Q15M PRN PO DECREASED GLUCOSE; Start 07/27/16 at 12:30 Glucose (Glutose) 22.5 gm Q15M PRN PO DECREASED GLUCOSE; Start 07/27/16 at 12: 30 Dextrose (D50w Syringe) 25 ml Q15M PRN IV DECREASED GLUCOSE; Start 07/27/16 at 12:30 Dextrose (D50w Syringe) 50 ml Q15M PRN IV DECREASED GLUCOSE; Start 07/27/16 at 12:30 Glucagon (Glucagen) 1 mg Q15M PRN IM DECREASED GLUCOSE; Start 07/27/16 at 12:30 Glucose (Glutose) 15 gm Q15M PRN BUCCAL DECREASED GLUCOSE; Start 07/27/16 at 12 :30 Amlodipine Besylate (Norvasc) 10 mg DAILY PO Last administered on 07/28/16 08: 09; Admin Dose 10 MG; Start 07/28/16 at 09:00 Hydralazine HCl (Apresoline) 10 mg Q2H PRN IV bp above 160/100 Last administered on 4/29/17at 16:04; Admin Dose 10 MG; Start 07/28/16 at 17:00 RAHAT LOU Jul 28, 2016 17:33
[2016-07-28 20:10] LABS: BARBITURATES NEGATIVE (NEGATIVE); BENZODIAZEPINES NEGATIVE (NEGATIVE); CANNABINOIDS POSITIVE (NEGATIVE)
[2016-07-28 20:11] LABS: COCAINE NEGATIVE (NEGATIVE); OPIATES POSITIVE (NEGATIVE)
[2016-07-28 20:19] LABS: ADD UMIC YES; URINE BILIRUBIN (Dip) NEGATIVE (NEGATIVE); URINE BLOOD (Dip) 1+ (NEGATIVE); URINE COLOR LT. YELLOW (YELLOW); URINE KETONES (Dip) NEGATIVE (NEGATIVE); URINE LEUKOCYTE ESTERASE (Dip) NEGATIVE (NEGATIVE); URINE NITRITE (Dip) NEGATIVE (NEGATIVE); URINE TOTAL PROTEIN (Dip) 4+ (NEGATIVE); URINE UROBILINOGEN (Dip) 0.2 E.U./dL (0.1-1.0)
--- NOTE | 2016-07-28 20:31 | RADRPT ---
PROCEDURE: CT Abdomen and Pelvis with contrast. CLINICAL INDICATION: Abdomen and pelvis pain. TECHNIQUE: CT scan of the abdomen and pelvis with contrast was performed. The patient was scanned following the uncomplicated intravenous administration of 80 cc of Omnipaque-300. Coronal and sagit ravin reformatted images were obtained from the axial source images. Images were reviewed on a [employer] PACS workstation. Total exam DLP is 838.67 mGy-cm. CTDIvol is 13.76 mGy. One or more of the following dose reduction techniques were used: Automated exposure control, adjustment of the mA and/or kV according to patient size, use of iterative reconstruction technique. COMPARISON: None. FINDINGS: The lung bases are normal. There is no pleural effusion. The liver is normal in size and attenuation. There is no focal hepatic lesion. There is gallbladder wall thickening, distension of the gallbladder, gallstones in the gallbladder, and mild surrounding edema consistent with cholecystitis. There is no fluid collection or mass to s uggest abscess. The spleen is normal in size. There is no focal splenic lesion. Both adrenals are normal with no enlargement or mass. The head of the pancreas is mildly enlarged and there is surrounding edema and a small amount of flu id in the right anterior pararenal space consistent with acute pancreatitis. There is no fluid melissa ection or mass to suggest abscess or pseudocyst. Both kidneys demonstrate normal contrast enhancement. There is no renal mass or hydronephrosis. The abdominal aorta is not dilated. There is calcification in the aorta consistent with atherosclero sis. There is no retroperitoneal lymphadenopathy or mass. There is no pelvic lymphadenopathy or mass. The bladder and distal ureters are normal. There is a surgical clip from previous appendectomy. The bowel and mesentery are normal. There is no free fluid or free gas. The osseous structures are unremarkable with no fracture or lytic lesion. IMPRESSION: 1. Acute cholecystitis. No gallstones in the gallbladder. 2. Acute pancreatitis. Small amount of fluid in the right anterior pararenal space. 3. Atherosclerosis. 4. Previous appendectomy. RPTAT: QQ .Jose Chua MD, MD Date Time Electronically viewed and signed by .Jose Chua MD, MD on 07/28/2016 20:31 .R/
[2016-07-28 21:10] LABS: BACTERIA,URINE FEW; SQUAMOUS EPITHELIAL CELL,UR FEW
[2016-07-29] VITALS (9 sets, daily range): BP systolic 125–159; BP diastolic 71–93; PULSE 82–106; RESP 20
[2016-07-29] MEDS: INSULIN ASPART [NOVOLOG] 3 ML PEN SC SCH ×4 (01:00→12:01)
[2016-07-29] MEDS: SOD CHLORIDE 0.9% 1,000 ML IV SCH ×2 (05:21→12:01)
[2016-07-29 06:49] LABS: ADD SCAN DIFF NO
[2016-07-29 06:56] LABS: ABNORMAL IP MESSAGE 1; BASOPHIL # 0.1 10^3/ul (0.0-0.1); EOSINOPHILS # 0.2 10^3/ul (0.0-0.5); EOSINOPHILS % 2.9 % (0.0-7.0); HEMATOCRIT 36.9 % (42.0-52.0); HEMOGLOBIN 11.6 g/dl (14.0-18.0); LYMPHOCYTES # 1.7 10^3/ul (0.8-2.9); LYMPHOCYTES % 21.3 % (15.0-51.0); MEAN CORPUSCULAR HEMOGLOBIN 28.6 pg (29.0-33.0); MEAN CORPUSCULAR HGB CONC 31.4 g/dl (32.0-37.0); MEAN CORPUSCULAR VOLUME 90.9 fl (82.0-101.0); MEAN PLATELET VOLUME 14.2 fl (7.4-10.4); MONOCYTE # 0.6 10^3/ul (0.3-0.9); MONOCYTES % 7.1 % (0.0-11.0); NEUTROPHIL # 5.4 10^3/ul (1.6-7.5); NEUTROPHILS % 67.3 % (39.0-77.0); PLATELET COUNT 199 10^3/UL (140-415); RED BLOOD COUNT 4.06 10^6/ul (4.70-6.10); RED CELL DISTRIBUTION WIDTH 13.2 % (11.5-14.5); WHITE BLOOD COUNT 8.1 10^3/ul (4.8-10.8)
[2016-07-29 07:16] LABS: ALBUMIN 2.3 g/dl (3.3-4.9); ALBUMIN/GLOBULIN RATIO 0.82; BILIRUBIN,INDIRECT 0.1 mg/dl (0-1.1); BILIRUBIN,TOTAL 0.1 mg/dl (0.2-1.3); CALCIUM 8.1 mg/dl (8.4-10.2); CREATININE 1.74 mg/dl (0.61-1.24); POTASSIUM 4.1 mmol/L (3.5-5.1); TOTAL PROTEIN 5.1 g/dl (6.1-8.1)
[2016-07-29] MEDS: FAMOTIDINE 20 MG INJ IV SCH (08:18)
[2016-07-29] MEDS: AMLODIPINE 10 MG TAB PO SCH (08:19)
[2016-07-29] MEDS: MULTIVITAMINS 10 ML, THIAMINE 100 MG, FOLIC ACID 1 MG in SOD CHLORIDE 0.9% 1,000 ML IVPB SCH (08:19)
--- NOTE | 2016-07-29 11:11 | CONS ---
Date/Time of Note Date/Time of Note DATE: 07/29/16 TIME: 11:08 Assessment/Plan Assessment/Plan Chief Complaint/Hosp Course Mr. Lebron May is a 30-year-old male that presented to ED with reports of chest pain, right upper abdominal pain, nausea, nonbloody bilious vomiting 1 day. Patient denies fever, diarrhea, shortness of breath, any new medications, and current alcohol use. Patient admits to having marijuana use. Patient has past medical history of diabetes type 2, hypertension, and hyperlipidemia Problems: Additional Assessment/Plan Abdominal pain/nausea/vomiting Pancreatitis, improving Nausea and pain control Advance to cholesterol modified diet MRCP: Acute pancreatitis. Peripancreatic fluid without definite focal loculated collection. Multiple small gallstones. No biliary ductal dilatation. It is difficult to completely exclude choledocholithiasis given the degree of breathing motion artifact present. Review CT abdomen pelvis Monitor LFTs, amylase, lipase Type 2 diabetes Management per Primary Accu-Cheks per protocol Obesity Management per Primary Encourage weight loss Question of alcoholism Management per Primary Tox screen, negative for alcohol, positive for opiate Further recommendations depend on clinical course Patient seen in collaboration with Dr. Castro Consultation Date/Type/Reason Admit Date/Time Jul 27, 2016 at 11:29 Type of Consultation: Gastroenterology 24 HR Interval Summary Free Text/Dictation Denies abdominal pain Tolerating clears LFTs within normal limits Advance to low-fat diet Denies nausea vomiting Exam/Review of Systems Vital Signs Vitals Vital Signs Date Time Temp Pulse Resp B/P Pulse Ox O2 Delivery O2 Flow Rate FiO2 07/29/16 08:40 82 07/29/16 07:21 98.2 20 158/93 98 07/27/16 20:28 Room Air Intake and Output 07/28/16 07/28/16 07/29/16 15:00 23:00 07:00 Intake Total 1000 ml 1650 ml Balance 1000 ml 1650 ml Exam Constitutional: alert, oriented, well developed Psych: nl mood/affect Head: normocephalic Eyes: EOMI, nl conjunctiva, nl lids ENMT: nl external ears & nose, nl lips & teeth, nl nasal mucosa & septum Respiratory: clear to auscultation, normal air movement Cardiovascular: regular rate and rhythm Gastrointestinal: soft, non-tender Musculoskeletal: nl extremities to inspection Neurological: [employer] II-XII intact Results Result Diagram: 07/29/16 0550 07/29/16 0550 Results 24 hrs Laboratory Tests Test 07/28/16 11:59 07/28/16 16:47 07/28/16 20:58 07/29/16 01:10 Bedside Glucose 169 139 215 138 Test 07/29/16 05:19 07/29/16 05:50 07/29/16 07:40 Bedside Glucose 142 114 White Blood Count 8.1 # Red Blood Count 4.06 L Hemoglobin 11.6 L Hematocrit 36.9 L Mean Corpuscular Volume 90.9 Mean Corpuscular Hemoglobin 28.6 L Mean Corpuscular Hemoglobin Concent 31.4 L Red Cell Distribution Width 13.2 Platelet Count 199 Mean Platelet Volume 14.2 H Neutrophils % 67.3 Lymphocytes % 21.3 Monocytes % 7.1 Eosinophils % 2.9 Basophils % 1.0 Nucleated Red Blood Cells % 0.0 Neutrophils # 5.4 Lymphocytes # 1.7 Monocytes # 0.6 Eosinophils # 0.2 Basophils # 0.1 Nucleated Red Blood Cells # 0.0 Sodium Level 138 Potassium Level 4.1 Chloride Level 113 H Carbon Dioxide Level 25 Anion Gap 4 L Blood Urea Nitrogen 13 Creatinine 1.74 H Glucose Level 149 Calcium Level 8.1 L Total Bilirubin 0.1 L Direct Bilirubin 0.00 Indirect Bilirubin 0.1 Aspartate Amino Transf (AST/SGOT) 17 Alanine Aminotransferase (ALT/SGPT) 44 Alkaline Phosphatase 129 H Total Protein 5.1 L Albumin 2.3 L Globulin 2.80 Albumin/Globulin Ratio 0.82 Lipase 252 Medications Medications Current Medications Sodium Chloride (NS) 1,000 ml @ 125 mls/hr Q8H IV Last administered on 05:21; Admin Dose 125 MLS/HR; Start 07/27/16 at 12:30 Lorazepam (Ativan) 0.5 mg Q6H PRN IV ANXIETY Last administered on 07/28/16 18: 00; Admin Dose 0.5 MG; Start 07/27/16 at 12:00 Ondansetron HCl (Zofran Inj) 4 mg Q6H PRN IV NAUSEA AND/OR VOMITING Last administered on 07/28/16 10:57; Admin Dose 4 MG; Start 07/27/16 at 12:00 Acetaminophen (Tylenol Tab) 650 mg Q6H PRN PO PAIN LEVEL 1-3 OR FEVER; Start at 12:00 Acetaminophen (Tylenol Supp) 650 mg Q6H PRN [place] PAIN LEVEL 1-3 OR FEVER; Start 07/27/16 at 12:00 Morphine Sulfate (morphine) 2 mg Q4H PRN IV PAIN LEVEL 7-10 Last administered on 07/28/16 10:57; Admin Dose 2 MG; Start 07/27/16 at 12:00 Docusate Sodium (Colace) 100 mg Q12H PRN PO CONSTIPATION; Start 07/27/16 at 12: 00 Bisacodyl (Dulcolax Supp) 10 mg DAILY PRN [place] CONSTIPATION; Start 07/27/16 at 12 :00 Famotidine (Pepcid Iv) 20 mg Q12 IV Last administered on 07/29/16 08:18; Admin Dose 20 MG; Start 07/27/16 at 21:00 Insulin Aspart NOVOLOG *MILD* ALGORI... Q4 SC Last administered on 07/29/16 05 :32; Admin Dose 1 UNIT; Start 07/27/16 at 21:00 Multivitamins/ Thiamine HCl/ Folic Acid/Sodium Chloride (Mvi Adult/ Vitamin B1/ Folic Acid/NS) 1,011.2 ml @ 125 mls/ hr DAILY@09 IVPB Last administered on 08:19; Admin Dose 125 MLS/HR; Start 07/28/16 at 09:00 Hydralazine HCl (Apresoline) 25 mg Q8 PO Last administered on 07/29/16 05:20; Admin Dose 25 MG; Start 07/27/16 at 22:00 Miscellaneous Information 1 ea NOTE XX ; Start 07/27/16 at 12:30 Glucose (Glutose) 15 gm Q15M PRN PO DECREASED GLUCOSE; Start 07/27/16 at 12:30 Glucose (Glutose) 22.5 gm Q15M PRN PO DECREASED GLUCOSE; Start 07/27/16 at 12: 30 Dextrose (D50w Syringe) 25 ml Q15M PRN IV DECREASED GLUCOSE; Start 07/27/16 at 12:30 Dextrose (D50w Syringe) 50 ml Q15M PRN IV DECREASED GLUCOSE; Start 07/27/16 at 12:30 Glucagon (Glucagen) 1 mg Q15M PRN IM DECREASED GLUCOSE; Start 07/27/16 at 12:30 Glucose (Glutose) 15 gm Q15M PRN BUCCAL DECREASED GLUCOSE; Start 07/27/16 at 12 :30 Amlodipine Besylate (Norvasc) 10 mg DAILY PO Last administered on 07/29/16 08: 19; Admin Dose 10 MG; Start 07/28/16 at 09:00 Hydralazine HCl (Apresoline) 10 mg Q2H PRN IV bp above 160/100 Last administered on 07/28/16 17:59; Admin Dose 10 MG; Start 07/28/16 at 17:00 JENNIFER SMITH Jul 29, 2016 11:11
--- NOTE | 2016-07-29 18:20 | DS ---
DATE OF ADMISSION: 07/27/2016 DATE OF DISCHARGE: 07/29/2016 DICHARGE DIAGNOSES: 1. Pancreatitis, etiology may be secondary to uncontrolled diabetes versus gallstones. The patient denies alcohol abuse. Pancreatitis now resolved. 2. Diabetes, poorly controlled. The patient advised to improve lifestyle with improved diet and in creased activity and to follow up with PCP. 3. Hypertension, now stable. Continue home medications. 4. History of dyslipidemia. Continue home statin. HOSPITAL COURSE: The patient is a 30-year-old male with history of hypertension, diabetes requiring insulin, and dyslipidemia. The patient is on statin as well as p.o. medication for diabetes. Actu ally the patient is not taking insulin and is only taking p.o. medications for his diabetes. The johnathan daly presents with pancreatitis. Denies alcohol abuse. His A1c is 9.9. His triglycerides were ch ecked and were 192 and hence were slightly elevated. The patient had a gallbladder ultrasound that showed cholelithiasis without evidence of cholecystitis, no signs of choledocholithiasis. The patie nt had an MRCP that showed acute pancreatitis. There were multiple small gallstones, no biliary jony t dilation. Abdominal, pelvis CT showed acute pancreatitis atherosclerosis, and previous appendecto my. The patient was pain free on the day of discharge. Lipase had normalized. He was tolerating p .o. diet without any pain. The patient's BP was elevated the day prior to hospitalization and was c ontrolled with p.o. medications. The patient does have medications for hypertension as well as dysl ipidemia and diabetes at home. On the day of discharge, the patient's vitals, labs, physical exam w ere stable. He had no acute complaints and questions were answered. CONDITION ON DISCHARGE: Stable. DISPOSITION: To home. MEDICATIONS: The patient will resume his usual home medications. FOLLOWUP: The patient is to follow up with PCP in 1 to 2 weeks. Greater than 30 minutes were spent coordinating discharge of patient. Dictated By: RAHAT LOU MD BS/NTS Conf#: [id number] DID#: [id number] CC: SAGAR HARVEY MD;*EndCC*
== END 2016-07-29 16:48 | disposition home or self-care (01) | DRG 439 ==
LOC: FTE 08:25 → MS1 11:29 → TEL 15:18 → MS4 17:11 → TEL 07-28 00:35
PROVIDERS: ADMIT Family Medicine; ATTEND Family Medicine
DX: K85.90 Acute pancreatitis without necrosis or infection, unspecified (principal); N17.9 Acute kidney failure, unspecified; E11.65 Type 2 diabetes mellitus with hyperglycemia; E11.319 Type 2 diabetes mellitus with unspecified diabetic retinopathy without macular edema; K80.80 Other cholelithiasis without obstruction; I10 Essential (primary) hypertension; E78.5 Hyperlipidemia, unspecified; H54.42 Blindness, left eye, normal vision right eye; Z79.4 Long term (current) use of insulin
CPT/HCPCS: 36415; 74177; 74181; 76705; 80053; 80061; 80306; 80307; 81001; 81003; 82962; 83036; 83605; 83690; 83735; 84484; 85025; 85610; 85730; 93005; 96374; 96375; 96376; J0360; J1170; J1815; J2060; J2270; J2405; J3411; J7030; Q9967

== ENCOUNTER 2017-11-20 17:25 | Emergency (ER) | END 2017-11-20 20:44 | disposition home or self-care (01) ==

== ENCOUNTER 2017-11-26 06:50 | Emergency (ER) | END 2017-11-26 08:44 | disposition home or self-care (01) ==

== ENCOUNTER 2018-02-13 16:04 | Observation (INO) | END 2018-02-14 16:05 | disposition left against medical advice (07) ==

== ENCOUNTER 2018-03-17 21:44 | Inpatient (IN) | END 2018-03-20 18:17 | disposition home or self-care (01) | DRG 640 ==

== ENCOUNTER 2018-04-02 19:06 | Inpatient (IN) | payer MEDICARE, OTHER ==
[~2018-04-02] VITALS: Ht 172.7 cm; Wt 99.7 kg
[2018-04-02] MEDS: NA POLYST SULFON 15 GM/60 ML BTL PO STA ×2 (02:30→22:05)
[~2018-04-02 19:06] MED LIST: CALC667C PO; CARV12.598 PO; ERGO500013 PO; ESCI10TA PO; FURO40TA4 PO; GABA300C16 PO; HYDR25CA98 PO; INSU100I33 SC; NIFE30TA23 PO; NOVO3I SC
[2018-04-02 19:14] VITALS: Ht 172.7 cm; Wt 99.7 kg
[2018-04-02] MEDS ORDERED: ONDANSETRON 4 MG INJ IV STA (20:53)
[2018-04-02] MEDS ORDERED: ASPIRIN 81 MG TAB PO STA (20:53)
[2018-04-02] MEDS ORDERED: morphine 4 MG/ML VIAL IV STA (20:53)
[2018-04-02] MEDS ORDERED: NITROGLYCERIN 2% 1 GM OINT PKT TD STA (20:53)
[2018-04-02] MEDS ORDERED: NITROGLYCERIN (SL) 0.4 MG TAB SL PRN (21:00)
[2018-04-02] MEDS ORDERED: LABETALOL HCL 20MG INJ IV ONE (21:00)
[2018-04-02] MEDS ORDERED: SIMV20TA PO (21:30)
[2018-04-02] MEDS ORDERED: ALBUTEROL 0.5% (NEB) 2.5 MG/0.5 ML AMP INH STA (21:42)
[2018-04-02] MEDS ORDERED: NA BICARBONATE 8.4% 50 ML SYG IV STA (21:42)
[2018-04-02] MEDS ORDERED: hydrOXYzine PAMOATE 25 MG CAP PO PRN (22:00)
[2018-04-02] MEDS ORDERED: ONDANSETRON 4 MG INJ IV PRN (22:00)
[2018-04-02] MEDS ORDERED: ACETAMINOPHEN 325 MG TAB PO PRN (22:00)
--- NOTE | 2018-04-02 22:30 | ERD ---
ER Documentation Chief Complaint Chief Complaint lower back pain +sob dialysis patient HPI Patient is a 32-year-old male with hypertension, diabetes, dialysis and smoking who presents with headache, back pain, and chest pain. He said that he had dialysis on Saturday and usually gets dialysis Tuesdays, , and Saturdays. He tried Tylenol. He has elevated blood pressure as well. ROS All systems reviewed and are negative except as per history of present illness. Medications Home Meds Active Scripts Hydroxyzine Pamoate* (Hydroxyzine Pamoate*) 25 Mg Capsule, 50 MG PO BID PRN for ANXIETY for 14 Days, CAP Prov:MIKE GIFFORD MD 03/20/18 Carvedilol* (Coreg*) 12.5 Mg Tablet, 12.5 MG PO BID for 30 Days, #60 TAB Prov:MIKE GIFFORD MD 03/20/18 Nifedipine* (Nifedipine ER*) 30 Mg Tablet.sa, 30 MG PO DAILY for 30 Days, TAB.SA Prov:MIKE GIFFORD MD 03/20/18 Reported Medications Simvastatin* (Zocor*) 20 Mg Tablet, 20 MG PO QHS, #30 TAB 04/02/18 Ergocalciferol (Vitamin D2) (VITAMIN D2) 50,000 Unit Capsule, 20747 UNIT PO Q SUN, CAP 03/17/18 Insulin Aspart* (Novolog Insulin Pen*) 100 Unit/Ml Soln, 0 SC .SLIDING SCALE AC, EA 03/17/18 Insulin Glargine,Hum.rec.anlog (Basaglar Kwikpen U-100) 100 Unit/1 Ml Insuln.pen, 15 UNIT SC QA, EA 03/17/18 Escitalopram Oxalate* (Lexapro*) 10 Mg Tablet, 10 MG PO DAILY, #30 TAB 12/05/17 Gabapentin* (Gabapentin*) 300 Mg Capsule, 300 MG PO QHS, #60 CAP 12/05/17 Furosemide* (Furosemide*) 40 Mg Tablet, 40 MG PO BID, TAB 12/05/17 Calcium Acetate* (Calcium Acetate*) 667 Mg Capsule, 2001 MG PO WITH MEALS, #30 CAP 12/05/17 Allergies Allergies: Coded Allergies: benazepril (Verified Allergy, Unknown, 04/02/18) PMhx/Soc History of Surgery: Yes (appendectomy,Laser sx anette. eyes, monitor implant-L eye) Anesthesia Reaction: No Hx Neurological Disorder: No Hx Respiratory Disorders: No Hx Cardiac Disorders: Yes (HTN) Hx Psychiatric Problems: Yes (panic/ anxiety attacks) Hx Miscellaneous Medical Probl: Yes (Drug abuse, ETOH, Dialysis TThSa, kidney failure) Hx Alcohol Use: Yes (former) Hx Substance Use: Yes (former meth and marijuana use) Hx Tobacco Use: Yes Smoking Status: Current some day smoker FmHx Family History: coronary disease Physical Exam Vitals Vital Signs Date Temp Pulse Resp B/P (MAP) Pulse Ox O2 O2 Flow FiO2 Time Delivery Rate 04/02/18 88 16 98 Nasal 2.0 21:54 Cannula 04/02/18 Nasal 1 21:53 Cannula 04/02/18 107 18 219/122 100 Room Air 20:51 (154) 04/02/18 99.7 110 20 259/132 99 19:14 (174) Physical Exam Const: No acute distress Head: Atraumatic Eyes: Normal Conjunctiva ENT: Normal External Ears, Nose and Mouth. Neck: Full range of motion. No meningismus. Resp: Clear to auscultation bilaterally Cardio: Regular rate and rhythm, no murmurs Abd: Soft, non tender, non distended. Normal bowel sounds Skin: No petechiae or rashes Back: No midline or flank tenderness Ext: No cyanosis, or edema Neur: Awake and alert Psych: Normal Mood and Affect Result Diagram: 04/02/18210604/02/182106 Results 24 hrs Laboratory Tests Test 04/02/18 21:07 White Blood Count 13.1 10^3/ul Red Blood Count 3.63 10^6/ul Hemoglobin 11.1 g/dl Hematocrit 34.2 % Mean Corpuscular Volume 94.2 fl Mean Corpuscular Hemoglobin 30.6 pg Mean Corpuscular Hemoglobin Concent 32.5 g/dl Red Cell Distribution Width 12.7 % Platelet Count 162 10^3/UL Mean Platelet Volume 13.0 fl Immature Granulocytes % 1.100 % Neutrophils % 74.0 % Lymphocytes % 13.2 % Monocytes % 8.3 % Eosinophils % 2.7 % Basophils % 0.7 % Nucleated Red Blood Cells % 0.0 /100WBC Immature Granulocytes # 0.150 10^3/ul Neutrophils # 9.7 10^3/ul Lymphocytes # 1.7 10^3/ul Monocytes # 1.1 10^3/ul Eosinophils # 0.4 10^3/ul Basophils # 0.1 10^3/ul Nucleated Red Blood Cells # 0.0 10^3/ul Sodium Level 138 mmol/L Potassium Level 6.3 mmol/L Chloride Level 99 mmol/L Carbon Dioxide Level 25 mmol/L Anion Gap 14 Blood Urea Nitrogen 83 mg/dl Creatinine 11.18 mg/dl Est Glomerular Filtrat Rate mL/min 5 mL/min Glucose Level 163 mg/dl Calcium Level 8.3 mg/dl Total Bilirubin 0.0 mg/dl Direct Bilirubin 0.00 mg/dl Indirect Bilirubin 0.0 mg/dl Aspartate Amino Transf (AST/SGOT) 20 IU/L Alanine Aminotransferase (ALT/SGPT) 32 IU/L Alkaline Phosphatase 75 IU/L Troponin I 0.087 ng/ml Total Protein 6.4 g/dl Albumin 3.5 g/dl Globulin 2.90 g/dl Albumin/Globulin Ratio 1.20 Current Medications Medications Dose Sig/[place] Start Time Status Last (Trade) Ordered Route PRN Stop Time Admin Dose Reason Admin Aspirin 162 mg ONCE STAT 04/02/18 DC 04/02/18 (Aspirin) PO 20:53 04/02/18 21:01 20:55 1 inch ONCE STAT 04/02/18 DC 04/02/18 Nitroglycerin TD 20:53 04/02/18 21:02 20:55 (Nitroglyceri n 2% Oint) 1 tab Q5M UP TO 3 04/02/18 Nitroglycerin DOSES PRN 21:00 SL CHEST (Nitroglyceri PAIN n (Sl Tab) 0.4 Mg) Labetalol 20 mg ONCE ONCE 04/02/18 DC 04/02/18 HCl IV 21:00 04/02/18 21:02 (Labetalol) 21:01 Morphine 4 mg ONCE STAT 04/02/18 DC 04/02/18 Sulfate IV 20:53 04/02/18 21:02 (morphine) 20:55 Ondansetron 4 mg ONCE STAT 04/02/18 DC 04/02/18 HCl (Zofran IV 20:53 04/02/18 21:02 Inj) 20:55 Sodium 30 gm ONCE STAT 04/02/18 DC 04/02/18 Polystyrene PO 21:42 04/02/18 22:05 Sulfonate 21:43 (Kayexalate) Albuterol 15 mg ONCE STAT 04/02/18 DC 04/02/18 (Proventil INH 21:42 04/02/18 21:54 0.5% (Neb)) 21:43 Sodium 50 ml ONCE STAT 04/02/18 DC 04/02/18 Bicarbonate IV 21:42 04/02/18 22:05 (Na Bicarb 21:43 8.4% Syg) Ondansetron 4 mg ER BRIDGE 04/02/18 HCl (Zofran PRN IV 22:00 04/03/18 Inj) NAUSEA AND/OR 21:59 VOMITING 650 mg ER BRIDGE 04/02/18 Acetaminophen PRN PO MILD 22:00 04/03/18 (Tylenol PAIN(1-3)OR 21:59 Tab) ELEVATED TEMP Hydralazine 20 mg Q6H PRN 04/02/18 HCl IV for 22:00 (Apresoline) sbp>170 Calcium 2,001 mg WITH MEALS 04/03/18 Acetate PO 08:00 (Phoslo) Carvedilol 12.5 mg BID PO 04/03/18 (Coreg) 09:00 10 mg DAILY PO 04/03/18 Escitalopram 09:00 Oxalate (Lexapro) Furosemide 40 mg 04/03/18 (Lasix) BID@0600,1800 06:00 PO Gabapentin 300 mg QHS PO 04/03/18 (Neurontin) 21:00 Hydroxyzine 50 mg BID PRN 04/02/18 Pamoate PO ANXIETY 22:00 (Vistaril) Insulin 15 unit QAM SC 04/03/18 Glargine 09:00 (Lantus) Nifedipine 30 mg DAILY PO 04/03/18 (Procardia 09:00 Xl) Procedures/MDM Smoking Cessation Therapy: Pt. was lectured for greater than 3 minutes on the health risks of continued smoking and the benefits of cessation. EKG read by me: Rate/Rhythm: Sinus tachycardia rate of 106 Intervals: Normal Impression: Sinus tachycardia without ischemia Chest x-ray read by radiology. Patient is a 32-year-old male with multiple cardiac risk factors who presents with chest pain. He also had hypertensive emergency. The patient was found to have hyperkalemia with a potassium of 6.3. The patient was given aspirin, nitroglycerin, and labetalol. He was then given treatment for hyperkalemia as well. I spoke with Dr. Franklin for admission. The patient will need dialysis which Dr. Franklin can arrange. Critical Care: Time: 35 minutes excluding all billable procedures. Treatments/Evaluations: Close monitoring and treatment of unstable vital signs, cardiorespiratory, and neurologic status, while maintaining tight balance of fluid, respiratory, and cardiac interventions. Departure Diagnosis: Primary Impression: Hyperkalemia Additional Impression: Hypertensive emergency Condition: SUKHWINDER Jaffe MD Apr 02, 2018 22:30
[2018-04-03] VITALS (30 sets, daily range): BP systolic 135–226; BP diastolic 71–127; PULSE 82–101; RESP 18–20
[2018-04-03] MEDS: FUROSEMIDE 40 MG TAB PO SCH ×2 (06:07→17:48)
[2018-04-03] MEDS ORDERED: DEXTROSE 50% 50 ML SYRINGE IV PRN ×2 (07:00)
[2018-04-03] MEDS ORDERED: BISACODYL (EC) 5 MG TAB PO PRN (07:00)
[2018-04-03] MEDS ORDERED: GLUCOSE GEL 15 GRAM TUBE BUCCAL PRN (07:00)
[2018-04-03] MEDS ORDERED: GLUCOSE GEL 15 GRAM TUBE PO PRN ×2 (07:00)
[2018-04-03] MEDS ORDERED: DOCUSATE SODIUM 100 MG CAP PO PRN (07:00)
[2018-04-03] MEDS ORDERED: GLUCAGON 1 MG INJ IM PRN (07:00)
[2018-04-03] MEDS ORDERED: ACETAMINOPHEN 325 MG TAB PO PRN (07:00)
[2018-04-03] MEDS: INSULIN ASPART [NOVOLOG] 3 ML PEN SC SCH ×4 (07:55→20:22)
[2018-04-03] MEDS: PANTOPRAZOLE (EC) 40 MG TAB PO SCH (08:13)
[2018-04-03] MEDS: CALCIUM ACETATE 667 MG CAP PO SCH ×3 (08:13→17:49)
[2018-04-03] MEDS: ESCITALOPRAM 10 MG TAB PO SCH (08:13)
[2018-04-03] MEDS: NIFEdipine (XL) 30 MG TAB PO SCH ×3 (08:14→20:16)
[2018-04-03] MEDS ORDERED: INSULIN GLARGINE [LANtus] 3 ML PEN SC SCH (09:00)
[2018-04-03] MEDS: traMADol 50 MG TAB PO PRN ×3 (11:25→23:27)
--- NOTE | 2018-04-03 15:21 | QN ---
Documentation Comment SEEN AND EXAMINED MIKE GIFFORD MD Apr 03, 2018 15:21
[2018-04-03] MEDS: hydrALAzine 20 MG INJ IV PRN ×2 (16:25→23:26)
[2018-04-03] MEDS ORDERED: GABAPENTIN 300 MG CAP PO SCH (21:00)
--- NOTE | 2018-04-03 21:41 | HP ---
DATE OF ADMISSION: 04/02/2018 REASON FOR ADMISSION: Generalized pain. HISTORY OF PRESENTING ILLNESS: This is a 32-year-old male well known to our service with multiple ad missions in the past secondary to noncompliance with hemodialysis, presented to the emergency departm ent after complaining of generalized body ache, back pain, neck pain, headache. According to the pat gonzález, he had been going to his dialysis now and normally goes Saturday, , Saturday session, bu t went to a dialysis session on Saturday; however when asked about [facility], which is not possible. Patient denied any urinary, bowel or bladder incontinence. On arr ival to ED, vital signs, blood pressure ____. Potassium was 6.3. BUN of 83, creatinine 111.8. The patient had a chest x-ray that showed cardiomegaly, central pulmonary vascular congestion, small bila teral infiltrates and patient had EKG, sinus tachycardia and was admitted for further management for hemodialysis. PAST MEDICAL HISTORY: 1. End-stage renal disease on hemodialysis for the past few months. 2. Diabetes with complications of diabetic neuropathy, retinopathy, nephropathy. 3. Diabetes. 4. Hypertension. 5. Hyperlipidemia. 6. History of drug use. 7. Pancreatitis. 8. History of gallstones. 9. 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 ALLERGIES: PENICILLIN. PAST SURGICAL HISTORY: Had appendectomy and multiple laser eye surgeries for diabetic retinopathy. FAMILY HISTORY: Significant for diabetes. SOCIAL HISTORY: The patient is living with the family. Denies any alcohol, any recreational drug us e. MEDICATIONS: 1. At home, patient said he takes 2 medications; however, in the home medication it is listed Coreg 12.5 b.i.d. 2. Nifedipine ____ 3. Lexapro. 4. Gabapentin 300. 5. [place]. 6. Lasix 40 b.i.d. 7. Calcium acetate with meals. REVIEW OF SYSTEMS: The patient says he has been feeling weak, tired, generalized body pains. Denies any shortness of breath and denies any cough, any fevers, chills and abdominal pain, nausea, vomitin g, diarrhea. PHYSICAL EXAMINATION: VITAL SIGNS: Currently, blood pressure 199/105, afebrile, heart rate 92, respirations 20. GENERAL: The patient is awake, alert. The patient is under the effect of some narcotics, opens eyes and answer some questions and then goes back to sleep. HEENT: Pupils equal, round, react to light. NECK: Supple. JVD appreciated. HEART: Regular rate and rhythm. LUNGS: Decreased breath sounds bilaterally. ABDOMEN: Soft, nontender, nondistended, positive normoactive bowel sounds. EXTREMITIES: 1+ edema. NEUROLOGIC: The patient has a right chest wall Perm-A-Cath. DIAGNOSTIC DATA: Potassium 6.3, BUN of 83, creatinine 111.8. White count 13.1, hemoglobin 11.1, quentin telet count 162. Chest x-ray shows cardiomegaly, central pulmonary vascular congestion. ASSESSMENT AND PLAN: 1. A 32-year-old male with generalized body ache, muscle ache, weakness, pains. The patient also corral s a drug seeking behavior. 2. Hypertensive emergency. 3. Volume overload. 4. Hyperkalemia. 5. Diabetes with a complication of diabetic nephropathy, retinopathy. 6. Anxiety. 7. Depression. 8. Hemodialysis noncompliance. PLAN: At this period of time, the patient is admitted to telemetry. Patient will receive stat hemod ialysis. Patient will be restarted back on his blood pressure medicines. The patient was explained about the compliance. Again, rest of the treatment will depend on the patient's hospitalization cour se. Dictated By: MIKE BIGGS/VIKTORIYA Conf#: [id number] DID#: [id number] CC: SHON MTZ MD;*End*
[2018-04-04] VITALS (21 sets, daily range): BP systolic 116–141; BP diastolic 58–84; PULSE 76–101; RESP 15–18
[2018-04-04] MEDS ORDERED: ACCU-CHEK XX SCH (02:00)
[2018-04-04] MEDS: PANTOPRAZOLE (EC) 40 MG TAB PO SCH (05:55)
[2018-04-04] MEDS: traMADol 50 MG TAB PO PRN (05:55)
[2018-04-04] MEDS: FUROSEMIDE 40 MG TAB PO SCH (05:55)
[2018-04-04] MEDS: INSULIN ASPART [NOVOLOG] 3 ML PEN SC SCH ×2 (07:55→11:50)
[2018-04-04] MEDS: CALCIUM ACETATE 667 MG CAP PO SCH ×2 (08:50→13:03)
[2018-04-04] MEDS: ESCITALOPRAM 10 MG TAB PO SCH (08:50)
[2018-04-04] MEDS: NIFEdipine (XL) 30 MG TAB PO SCH (08:51)
[2018-04-04] MEDS ORDERED: INSULIN GLARGINE [LANTus] (100 UNITS/ML) SYG SC SCH ×2 (09:00→12:34)
[2018-04-04] MEDS ORDERED: INSULIN GLARGINE [LANtus] 3 ML PEN SC SCH (09:00)
--- NOTE | 2018-04-04 12:36 | PDOCDIS ---
Discharge Instructions DIAGNOSIS Discharge Diagnosis ESRD CONDITION [id number] Patient Condition: [id number] Stable HOME CARE INSTRUCTIONS: [id number] Special Diet: [id number] renal diet ACTIVITY: [id number] Activity Restrictions: [id number] Slowly Increase Activity Rest between Activity Avoid heavy lifting FOLLOW UP/APPOINTMENTS Follow-up Plan C/w HD -c.w vascular surgeon for creating AV fistula, CALLY Hannon Apr 04, 2018 12:36
--- NOTE | 2018-04-04 12:37 | DS ---
Date/Time of Note Date/Time of Note DATE: 04/04/18 TIME: 12:37 Discharge Summary Admission/Discharge Info Admit Date/Time Apr 02, 2018 at 21:49 Discharge Date/Time Discharge Diagnosis Noncompliance with HD, ESRD, hyperkalemia Patient Condition: Stable Hospital Course HISTORY OF PRESENTING ILLNESS: This is a 32-year-old male well known to our [facility] with multiple admissions in the past secondary to noncompliance with hemodialysis, presented to the emergency department after complaining of generalized body ache, back pain, neck pain, headache. According to the patient, he had been going to his dialysis now and normally goes Saturday, , Saturday session, but went to a dialysis session on Saturday; however when asked about duration of dialysis centers at about 5 hours, which is not possible. Patient denied any urinary, bowel or bladder incontinence. On arrival to ED, vital signs, blood pressure ____. Potassium was 6.3. BUN of 83, creatinine 111.8. The patient had a chest x-ray that showed cardiomegaly, central pulmonary vascular congestion, small bilateral infiltrates and patient had EKG, sinus tachycardia and was admitted for further management for hemodialysis. PAST MEDICAL HISTORY: 1. End-stage renal disease on hemodialysis for the past few months. 2. Diabetes with complications of diabetic neuropathy, retinopathy, nephropathy. 3. Diabetes. 4. Hypertension. 5. Hyperlipidemia. 6. History of drug use. 7. Pancreatitis. 8. History of gallstones. 9. 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 1. generalized body ache, muscle ache, weakness, pains. drug seeking behavior. 2. Hypertensive emergency. 3. Volume overload. 4. Hyperkalemia. 5. Diabetes with a complication of diabetic nephropathy, retinopathy. 6. Anxiety. 7. Depression. 8. Hemodialysis noncompliance. During hospitalization patient was admitted to telemetry, all the time was seen. Patient received stat hemodialysis, f/ed with HD on the next day. Patient was on his blood pressure medicines. The patient was explained about the compliance. Pt was given a card for Dr Fountain for possible AV shunt ofr fistula. Home Meds Active Scripts Hydroxyzine Pamoate* (Hydroxyzine Pamoate*) 25 Mg Capsule, 50 MG PO BID PRN for ANXIETY for 14 Days, CAP Prov:MIKE GIFFORD MD 03/20/18 Carvedilol* (Coreg*) 12.5 Mg Tablet, 12.5 MG PO BID for 30 Days, #60 TAB Prov:MIKE GIFFORD MD 03/20/18 Nifedipine* (Nifedipine ER*) 30 Mg Tablet.sa, 30 MG PO DAILY for 30 Days, TAB.SA Prov:MIKE GIFFORD MD 03/20/18 Reported Medications Simvastatin* (Zocor*) 20 Mg Tablet, 20 MG PO QHS, #30 TAB 04/02/18 Ergocalciferol (Vitamin D2) (VITAMIN D2) 50,000 Unit Capsule, 62132 UNIT PO Q SUN, CAP 03/17/18 Insulin Aspart* (Novolog Insulin Pen*) 100 Unit/Ml Soln, 0 SC .SLIDING SCALE , EA 03/17/18 Insulin Glargine,Hum.rec.anlog (Basaglar Kwikpen U-100) 100 Unit/1 Ml I nsuln.pen, 15 UNIT SC QA, EA 03/17/18 Escitalopram Oxalate* (Lexapro*) 10 Mg Tablet, 10 MG PO DAILY, #30 TAB 12/05/17 Gabapentin* (Gabapentin*) 300 Mg Capsule, 300 MG PO QHS, #60 CAP 12/05/17 Furosemide* (Furosemide*) 40 Mg Tablet, 40 MG PO BID, TAB 12/05/17 Calcium Acetate* (Calcium Acetate*) 667 Mg Capsule, 2001 MG PO WITH MEALS, #30 CAP 12/05/17 Follow-up Plan C/w HD -c.w vascular surgeon for creating AV fistula, dr Fountain Primary Care Provider Not On Staff Doctor Time spent on discharge: < 30 minutes Pending Labs Laboratory Tests Test 04/03/18 17:44 04/03/18 20:14 04/04/18 01:40 04/04/18 06:47 Bedside 160 238 143 Glucose mg/dL (70-220) mg/dL (70-220) mg/dL (70-220) White Blood 9.0 Count 10^3/ul (4.8-1 0.8) Red Blood 3.46 Count 10^6/ul (4.70- 6.10) Hemoglobin 10.6 g/dl (14.0-18. 0) Hematocrit 32.2 % (42.0-52.0) Mean 93.1 Corpuscular fl (82.0-101.0 Volume ) Mean 30.6 Corpuscular pg (29.0-33.0) Hemoglobin Mean 32.9 Corpuscular g/dl (32.0-37. Hemoglobin Conc 0) ent Red Cell 12.9 Distribution % (11.5-14.5) Width Platelet Count 165 10^3/UL (140-4 15) Mean Platelet 13.0 Volume fl (7.4-10.4) Immature 0.700 Granulocytes % % (0.001-0.429 ) Neutrophils % 73.2 % (39.0-77.0) Lymphocytes % 13.6 % (15.0-51.0) Monocytes % 9.2 % (0.0-11.0) Eosinophils % 2.4 % (0.0-7.0) Basophils % 0.9 % (0.0-2.0) Nucleated Red 0.0 Blood Cells % /100WBC (0.0-0 .0) Immature 0.060 Granulocytes # 10^3/ul (0.0-0 .031) Neutrophils # 6.6 10^3/ul (1.6-7 .5) Lymphocytes # 1.2 10^3/ul (0.8-2 .9) Monocytes # 0.8 10^3/ul (0.3-0 .9) Eosinophils # 0.2 10^3/ul (0.0-0 .5) Basophils # 0.1 10^3/ul (0.0-0 .1) Nucleated Red 0.0 Blood Cells # 10^3/ul (0.0-0 .0) Sodium Level 138 mmol/L (135-14 4) Potassium 5.8 Level mmol/L (3.5-5. 1) Chloride Level 99 mmol/L (97-110 ) Carbon Dioxide 27 Level mmol/L (21-31) Anion Gap 12 (5-13) Blood Urea 57 Nitrogen mg/dl (7-20) Creatinine 9.30 mg/dl (0.61-1. 24) Est Glomerular 7 mL/min (>60) Filtrat Rate mL/min Glucose Level 165 mg/dl (70-220) Calcium Level 8.5 mg/dl (8.4-10. 2) Phosphorus 8.7 Level mg/dl (2.5-4.9 ) Magnesium 2.2 Level mg/dl (1.7-2.5 ) Test 04/04/18 07:55 04/04/18 11:59 Bedside 150 140 Glucose mg/dL (70-220) mg/dL (70-220) CALLY PERKISN Apr 04, 2018 12:37
== END 2018-04-04 16:20 | disposition home or self-care (01) | DRG 640 ==
LOC: E/R 19:06 → TEL 21:49
PROVIDERS: ADMIT Internal Medicine Nephrology; ATTEND Internal Medicine Nephrology
PROC: 5A1D70Z Performance of Urinary Filtration, Intermittent, Less than 6 Hours Per Day (ICD-10-PCS; principal; 2018-04-03)
DX: E87.5 Hyperkalemia (principal); N18.6 End stage renal disease; I12.0 Hypertensive chronic kidney disease with stage 5 chronic kidney disease or end stage renal disease; I16.1 Hypertensive emergency; E87.79 Other fluid overload; Z72.0 Tobacco use; Z99.2 Dependence on renal dialysis; Z91.15 Patient's noncompliance with renal dialysis; E11.40 Type 2 diabetes mellitus with diabetic neuropathy, unspecified; E11.21 Type 2 diabetes mellitus with diabetic nephropathy; E11.319 Type 2 diabetes mellitus with unspecified diabetic retinopathy without macular edema; Z76.5 Malingerer [conscious simulation]; F41.8 Other specified anxiety disorders
CPT/HCPCS: 36415; 71045; 80048; 80053; 82550; 82553; 82962; 83735; 84100; 84484; 85025; 87081; 90935; 93005; 94664; 96374; 96375; J0360; J1815; J2270; J2405

== ENCOUNTER 2018-06-25 07:43 | Inpatient (IN) | payer MEDICARE, OTHER ==
[~2018-06-25] VITALS: Ht 182.9 cm; Wt 85.0 kg
[2018-06-25] VITALS (11 sets, daily range): BP systolic 142–194; BP diastolic 72–111; PULSE 80–87; RESP 18–19; Ht 182.9 cm; Wt 85.0 kg
[~2018-06-25 07:43] MED LIST changes: +SIMV20TA PO
[2018-06-25] MEDS ORDERED: HYDROmorphONE 1 MG/ML SYG IV STA (08:03)
[2018-06-25] MEDS ORDERED: SOD CHLORIDE 0.9% 500 ML IV STA (08:03)
[2018-06-25] MEDS ORDERED: ONDANSETRON 4 MG INJ IV STA (08:03)
--- NOTE | 2018-06-25 09:30 | ERD ---
ER Documentation Chief Complaint Chief Complaint DULCE FLANK PAIN ONSET LAST SATURDAY, LAST DIALYISIS YESTERDAY HPI 32-year-old male presents to the emergency department complaining of bilateral flank pain. Patient states he was last dialyzed yesterday. Even prior to that, over the last 5 days or so, he had a severe epigastric and bilateral flank pain. He reports nausea but no vomiting or diarrhea. He reports no fevers or chills. He reports his pain is severe. He reports no vomiting. ROS All systems reviewed and are negative except as per history of present illness. Medications Home Meds Active Scripts Hydroxyzine Pamoate* (Hydroxyzine Pamoate*) 25 Mg Capsule, 50 MG PO BID PRN for ANXIETY for 14 Days, CAP Prov:MIKE UMANA MD 03/20/18 Carvedilol* (Coreg*) 12.5 Mg Tablet, 12.5 MG PO BID for 30 Days, #60 TAB Prov:MIKE UMANA MD 03/20/18 Nifedipine* (Nifedipine ER*) 30 Mg Tablet.sa, 30 MG PO DAILY for 30 Days, TAB.SA Prov:MIKE UMANA MD 03/20/18 Reported Medications Simvastatin* (Zocor*) 20 Mg Tablet, 20 MG PO QHS, #30 TAB 04/02/18 Ergocalciferol (Vitamin D2) (VITAMIN D2) 50,000 Unit Capsule, 99183 UNIT PO Q SUN, CAP 03/17/18 Insulin Aspart* (Novolog Insulin Pen*) 100 Unit/Ml Soln, 0 SC .SLIDING SCALE AC, EA 03/17/18 Insulin Glargine,Hum.rec.anlog (Basaglar Kwikpen U-100) 100 Unit/1 Ml Insuln.pen, 15 UNIT SC QA, EA 03/17/18 Escitalopram Oxalate* (Lexapro*) 10 Mg Tablet, 10 MG PO DAILY, #30 TAB 12/05/17 Gabapentin* (Gabapentin*) 300 Mg Capsule, 300 MG PO QHS, #60 CAP 12/05/17 Furosemide* (Furosemide*) 40 Mg Tablet, 40 MG PO BID, TAB 12/05/17 Calcium Acetate* (Calcium Acetate*) 667 Mg Capsule, 2001 MG PO WITH MEALS, #30 CAP 12/05/17 Allergies Allergies: Coded Allergies: benazepril (Verified Allergy, Unknown, 06/25/18) PMhx/Soc History of Surgery: Yes (APPENDECTOMY, LASER SX BOTH EYES, L. EYE IMPLANT) Anesthesia Reaction: No Hx Neurological Disorder: No Hx Respiratory Disorders: No Hx Cardiac Disorders: Yes (HTN) Hx Psychiatric Problems: Yes (ANXIETY, PANIC ATTACKS) Hx Miscellaneous Medical Probl: Yes (DRUG ABUSE, ETOH,DM,ESRD) Hx Alcohol Use: Yes Hx Substance Use: Yes Hx Tobacco Use: Yes Smoking Status: Current every day smoker FmHx Noncontributory for chief complaint Physical Exam Vitals Vital Signs Date Temp Pulse Resp B/P (MAP) Pulse Ox O2 O2 Flow FiO2 Time Delivery Rate 06/25/18 97.7 87 18 242/129 99 07:45 (166) Physical Exam GENERAL: Pale, chronically ill male who appears uncomfortable HEENT: Pupils equal, round, and reactive to light. EOMI. There is no scleral icterus. NECK: C-spine is soft and supple, there is no meningismus. There is no cervical lymphadenopathy. LUNGS: Clear to auscultation bilaterally. There are no rales, wheezes or rhonchi. HEART: Regular rate and rhythm, no murmurs, clicks, rubs or gallops. ABDOMEN: Soft, nondistended. Minimal epigastric tenderness with no rebound or guarding. No CVA tenderness. Postop scars are noted. EXTREMITIES: There is no peripheral cyanosis or edema. No focal swelling or erythema. NEURO: The patient moves all four extremities with 5/5 strength. Normal gait. Alert and oriented SKIN: There is no apparent rash or petechiae. Patient is pale. There is a right upper chest wall dialysis catheter without inflammatory changes at the insertion site. HEME/LYMPHATIC: There is no evidence of excessive bruising or lymphedema. PSYCHIATRIC: The patient does not appear anxious or depressed. Result Diagram: 06/25/18 0815 06/25/18 0815 Results 24 hrs Laboratory Tests Test 06/25/18 08:09 06/25/18 08:15 Bedside Glucose 212 mg/dL White Blood Count 10.0 10^3/ul Red Blood Count 3.99 10^6/ul Hemoglobin 12.6 g/dl Hematocrit 39.3 % Mean Corpuscular Volume 98.5 fl Mean Corpuscular Hemoglobin 31.6 pg Mean Corpuscular Hemoglobin Concent 32.1 g/dl Red Cell Distribution Width 14.7 % Platelet Count 231 10^3/UL Mean Platelet Volume 12.7 fl Immature Granulocytes % 0.800 % Neutrophils % 65.3 % Lymphocytes % 18.8 % Monocytes % 10.6 % Eosinophils % 3.3 % Basophils % 1.2 % Nucleated Red Blood Cells % 0.0 /100WBC Immature Granulocytes # 0.080 10^3/ul Neutrophils # 6.5 10^3/ul Lymphocytes # 1.9 10^3/ul Monocytes # 1.1 10^3/ul Eosinophils # 0.3 10^3/ul Basophils # 0.1 10^3/ul Nucleated Red Blood Cells # 0.0 10^3/ul Sodium Level 140 mmol/L Potassium Level 5.8 mmol/L Chloride Level 98 mmol/L Carbon Dioxide Level 30 mmol/L Anion Gap 12 Blood Urea Nitrogen 38 mg/dl Creatinine 8.85 mg/dl Est Glomerular Filtrat Rate mL/min 7 mL/min Glucose Level 220 mg/dl Calcium Level 8.2 mg/dl Total Bilirubin 0.0 mg/dl Direct Bilirubin 0.00 mg/dl Indirect Bilirubin 0.0 mg/dl Aspartate Amino Transf (AST/SGOT) 25 IU/L Alanine Aminotransferase (ALT/SGPT) 20 IU/L Alkaline Phosphatase 91 IU/L Total Protein 8.0 g/dl Albumin 4.3 g/dl Globulin 3.70 g/dl Albumin/Globulin Ratio 1.16 Lipase 2471 U/L Current Medications Medications Dose Sig/[place] Start Time Status Last (Trade) Ordered Route PRN Stop Time Admin Dose Reason Admin Sodium 500 ml @ Q1H STAT 06/25/18 DC 06/25/18 Chloride 500 mls/hr IV 08:03 08:19 06/25/18 09:02 1 mg ONCE STAT 06/25/18 DC 06/25/18 Hydromorphone IV 08:03 08:19 HCl 06/25/18 08:04 (Dilaudid) Ondansetron 4 mg ONCE STAT 06/25/18 DC 06/25/18 HCl (Zofran IV 08:03 08:19 Inj) 06/25/18 08:04 Procedures/MDM Patient was taken to a room, seen and evaluated. Comfort measures were initiated. Diagnostic tests were ordered and reviewed. 3 LEAD RHYTHM STRIP: Normal sinus rhythm without ectopy EK lead EKG reviewed by myself: Normal Sinus Rhythm Normal [place] and intervals No ST elevation, depression, or T wave inversion Impression: Normal EKG RADIOLOGY: Reviewed with the radiologist CONSULTATION: Dr. Umana was notified for admission REEVALUATION: 929: Diagnostic tests were appreciated and discussed with the patient. Decision was made to admit. MEDICAL DECISION MAKIN-year-old dialysis dependent gentleman presents the emergency room with abdominal pain of uncertain etiology. Patient has evidence of pancreatitis on his lab tests complicate by his renal failure. He has had acute pancreatitis in the past requiring a prolonged hospital stay. Based on this history and his underlying comorbid conditions, I will be admitting him to the hospital for further supportive management. In regards to his hyperkalemia, patient has no EKG changes and is scheduled for dialysis this appears to be essentially appropriate for his underlying renal disease. Departure Diagnosis: Primary Impression: Pancreatitis Condition: Ralph RIVASKIRBY Jun 25, 2018 09:30
[2018-06-25] MEDS ORDERED: NIFEdipine (XL) 30 MG TAB PO ONE (11:00)
[2018-06-25] MEDS ORDERED: ONDANSETRON 4 MG TAB PO PRN (11:30)
[2018-06-25] MEDS ORDERED: NACL 0.9% 3 ML SYG IV SCH (11:30)
[2018-06-25] MEDS ORDERED: hydrALAzine 20 MG INJ IV ONE (12:00)
[2018-06-25] MEDS: FAMOTIDINE 20 MG INJ IV SCH ×2 (12:19→21:03)
[2018-06-25] MEDS ORDERED: CARV12.598 PO (12:45)
[2018-06-25] MEDS ORDERED: GABA300C16 PO (12:45)
[2018-06-25] MEDS ORDERED: NIFE30TA23 PO (12:45)
[2018-06-25] MEDS: HYDROmorphONE 0.5 MG/0.5 ML SYG IV PRN ×3 (13:00→23:41)
[2018-06-25] MEDS ORDERED: ATORVASTATIN 20 MG TAB PO ONE (13:00)
[2018-06-25] MEDS: FUROSEMIDE 40 MG TAB PO SCH ×2 (13:01→21:02)
[2018-06-25] MEDS: ESCITALOPRAM 10 MG TAB PO SCH (13:01)
--- NOTE | 2018-06-25 14:13 | QN ---
Documentation Comment pt seen and examined MIKE GIFFORD MD Jun 25, 2018 14:12
--- NOTE | 2018-06-25 18:46 | HP ---
DATE OF ADMISSION: 06/25/2018 REASON FOR ADMISSION: Epigastric pain and left flank pain. HISTORY OF PRESENTING ILLNESS: This is a 32-year-old male with a past medical history of diabetes, h ypertension, end-stage renal disease on hemodialysis, hyperlipidemia, chronic opioid use, presented t o the emergency department after feeling left upper quadrant pain, epigastric pain for the last 3 to 4 days. According to the patient, he has been going regularly to his dialysis session. He went for his dialysis session yesterday. The patient is status post cholecystectomy. The patient comes to [facility] emergency department complaining of left upper quadrant pain for the last 3 to 4 days. The patient denies any alcohol abuse. Denies any hematemesis, any melena, any bright red blood per rectum. On arrival to ED, initial blood pressure was 242/129, temperature 97.7, pulse 87, respirations 18, satur ating 99%. White count was 10.0, hemoglobin 12.6, platelet count 231, potassium 5.8, BUN of 38, crea tinine 8.85, lipase 2471. Hepatitis B was negative. The patient had a CT of the abdomen and pelvis that showed moderate stool burden. Colon is otherwise stable. No calcified ureteral calculi or obst ructive uropathy status post prior cholecystectomy. No evidence of biliary ductal dilatation. The p atient was given has NS bolus, Dilaudid, Zofran, nifedipine, clonidine, hydralazine 10 mg IV for bloo d pressure and was admitted for further management. PAST MEDICAL HISTORY: 1. 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 2. End-stage renal disease on hemodialysis for the past few months Saturday, and Saturday. 3. Hypertension. 4. Hyperlipidemia. 5. History of drug use. 6. History of pancreatitis. 7. History of gallstones, status post cholecystectomy. 8. 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 The patient also says that his right eye h as been losing vision too which is old. ALLERGIES: PENICILLIN. PAST SURGICAL HISTORY: Appendectomy and multiple laser eye surgeries for diabetic retinopathy, linh cystectomy. FAMILY HISTORY: Significant for diabetes. SOCIAL HISTORY: Living with the family. Denies any alcohol or any recreational drug use. MEDICATIONS: At home, the patient said he takes: 1. Coreg. 2. Procardia. 3. Lexapro. 4. Gabapentin. 5. Duncan. 6. Lasix 40 b.i.d. 7. Calcium acetate with meals. REVIEW OF SYSTEMS: Denies any headache. Chronic blurry vision. Sometimes does have left intermitte nt achy chest pain. Denies any shortness of breath, any cough, any fevers, chills. Complains of lef t upper quadrant pain and had 2 episodes of vomiting. Denied any diarrhea. PHYSICAL EXAMINATION: VITAL SIGNS: Currently, blood pressure 187/111, pulse 72, respirations 18, saturating 98%. GENERAL: The patient is awake, alert, oriented, appears to be in mild to moderate distress secondary to pain. HEENT: Pupils are equal, round, reactive to light. The patient has blurry vision in both eyes and a ctually, the patient is blind on the left eye. HEART: Regular rate, rhythm. LUNGS: Clear to auscultate bilaterally. ABDOMEN: The patient has tenderness present in the left upper quadrant. EXTREMITIES: No clubbing, cyanosis or edema. SKIN: The patient has a right-sided PermCath in place. LABORATORY DATA: White count 10.0, platelet count 213 and hemoglobin 12.6. BMP: Potassium of 5.8. Lipase 2471. DIAGNOSTIC DATA: CT of the abdomen and pelvis: Status post prior cholecystectomy. No evidence of b iliary ductal dilatation. Some constipation. No calcified urinary calculi or obstructive uropathy. ASSESSMENT AND PLAN: 1. This is a 32-year-old male who presented with left upper quadrant pain to the back. Lipase is el evated, suggestive of pancreatitis. CT of the abdomen and pelvis is negative for any stones. 2. Hypertensive urgency/emergency. The patient has not taken his blood pressure medicines due to th e pain and vomiting. 3. Diabetes with complication of diabetic neuropathy, retinopathy, nephropathy. 4. End-stage renal disease, on hemodialysis. 5. Hyperkalemia, likely secondary to noncompliance. 6. Depression. 7. History of drug abuse. 8. History of pancreatitis. PLAN: At this period of time, the patient will be admitted to telemetry. The patient will receive s tat hemodialysis because of blood pressure and hyperkalemia. We will continue the patient on home me dications, Coreg, nifedipine and Lasix. The patient will be on pain control. GI consultation has be en requested. The patient does not give any alcohol history. We are limited in giving fluids to the patient because of he is end-stage renal patient. Rest of the treatment will depend on the patient' s hospitalization course. Dictated By: MIKE BIGGS/VIKTORIYA Conf#: [id number] DID#: [id number] CC: MAXIMO KUHN MD; JIMENA QUEZADA MD;*EndCC*
--- NOTE | 2018-06-25 20:02 | CONS ---
DATE OF ADMISSION: 06/25/2018 DATE OF CONSULTATION: TYPE OF CONSULTATION: Gastroenterology. REASON FOR CONSULTATION: Acute pancreatitis. HISTORY OF PRESENT ILLNESS: A 32-year-old male came to the emergency room complaining of flank pain. The patient has been having epigastric pain for the last 5 days and also flank pain. He is nauseou s, but no vomiting. No GI bleeding, no fever, no chills, no or WILL CALL ORDER CLERK problem. He had his last dial ysis yesterday. REVIEW OF SYSTEMS: Otherwise negative. SOCIAL HISTORY: He does not smoke or drink. HOME MEDICATIONS: Reviewed. He is on: 1. Carvedilol. 2. Hydroxyzine. 3. Simvastatin. 4. Ergocalciferol. 5. Insulin NovoLog. 6. Lexapro. 7. Gabapentin. 8. Lasix. 9. Calcium. ALLERGIES: . PAST MEDICAL HISTORY: History of hypertension, anxiety, panic attack, history of diabetes mellitus, end-stage renal disease and ethanol in the past. FAMILY HISTORY: Nothing contributory. PHYSICAL EXAMINATION GENERAL: Well-built, nourished, not in distress. VITAL SIGNS: Stable. HEENT: Unremarkable. NECK: Supple. No thyromegaly, no lymphadenopathy. CARDIOVASCULAR: No murmur, gallop or click. LUNGS: Clear. ABDOMEN: Soft. Mild tenderness in the epigastric area. Bowel sounds are good. No mass felt per ab domen. CENTRAL NERVOUS SYSTEM: Grossly within normal limits. LABORATORY DATA: Reviewed. The patient's lipase is 2471. Creatinine is 8.85. Hematocrit is 39. W BC is within normal limits. DIAGNOSTIC DATA: CAT scan of the abdomen and pelvis done which showed status post cholecystectomy, p ancreas was reported normal. IMPRESSION: 1. Acute pancreatitis. Etiology is unclear. At this point, it is not related to any kind of medica tion. Biliary system is normal. No evidence of biliary pancreatitis at this point. 2. End-stage renal disease. 3. Diabetes mellitus. 4. As per the record, history of ethanol abuse in the past. PLAN: At this point, is to keep the patient n.p.o., IV hydration, pain management. We will send for triglyceride level and also get MRCP done to rule out biliary obstruction or pancreatic divisum. Dictated By: MAXIMO QUIROZ/VIKTORIYA Conf#: [id number] DID#: [id number] CC: JIMENA QUEZADA MD; MIKE GIFFORD;*End*
[2018-06-25] MEDS: CALCIUM ACETATE 667 MG CAP PO SCH (21:01)
[2018-06-26] VITALS (30 sets, daily range): BP systolic 117–179; BP diastolic 56–99; PULSE 70–88; RESP 18–20
[2018-06-26] MEDS: HEPARIN 1000 UNITS/ML 10 ML INJ CATHETER SCH ×2 (00:53→16:13)
[2018-06-26] MEDS: SOD CHLORIDE 0.9% 1,000 ML IV SCH ×2 (02:58→07:07)
[2018-06-26] MEDS: HYDROmorphONE 0.5 MG/0.5 ML SYG IV PRN ×5 (04:14→20:59)
[2018-06-26] MEDS: FUROSEMIDE 40 MG TAB PO SCH ×2 (05:57→17:08)
[2018-06-26] MEDS ORDERED: PANTOPRAZOLE 40 MG INJ IV SCH (06:00)
[2018-06-26] MEDS: INSULIN ASPART [NOVOLOG] 3 ML PEN SC SCH ×4 (07:55→21:00)
[2018-06-26] MEDS: CALCIUM ACETATE 667 MG CAP PO SCH ×3 (07:55→17:04)
[2018-06-26] MEDS: NIFEdipine (XL) 30 MG TAB PO SCH (08:17)
[2018-06-26] MEDS: FAMOTIDINE 20 MG INJ IV SCH ×2 (08:17→21:08)
[2018-06-26] MEDS: ESCITALOPRAM 10 MG TAB PO SCH (08:22)
--- NOTE | 2018-06-26 15:59 | PN ---
Date/Time of Note Date/Time of Note DATE: 06/26/18 TIME: 15:55 Assessment/Plan VTE Prophylaxis Risk score (from Nsg)>0 risk: 1 SCD applied (from Nsg): No SCD contraindicated: low risk/ambulating Pharmacological prophylaxis: NA/contraindicated Pharm contraindication: low risk/ambulating Lines/Catheters IV Catheter Type (from Nrsg): Saline Lock Assessment/Plan Assessment/Plan This is a 32-year-old male who presented with 1 left upper quadrant pain to the back. Lipase is elevated, suggestive of pancreatitis. CT of the abdomen and pelvis is negative for any stones. Etiology questionable alcohol 2. Hypertensive urgency/emergency. The patient has not taken his blood pressure medicines due to the pain and vomiting. 3. Diabetes with complication of diabetic neuropathy, retinopathy, nephropathy. 4. End-stage renal disease, on hemodialysis.TTS 5. Hyperkalemia, likely secondary to noncompliance. 6. Depression. 7. History of drug abuse. 8. History of pancreatitis. Plan -Advance diet to clear liquid, lipase normal -MRCP is negative -Continue dialysis for today for hyperkalemia and for the patient to be back on schedule -bP controlled with nifedipine/Coreg/lasix -fu GI recs -GI/DVT prophylaxis Result Diagram: 06/26/18 0608 06/26/18 0608 Results 24hrs Laboratory Tests Test 06/25/18 17:16 06/26/18 06:08 06/26/18 08:09 06/26/18 12:02 Bedside Glucose 113 127 124 White Blood Count 8.6 Red Blood Count 3.95 L Hemoglobin 12.4 L Hematocrit 39.0 L Mean Corpuscular 98.7 Volume Mean Corpuscular 31.4 Hemoglobin Mean Corpuscular 31.8 L Hemoglobin Concent Red Cell 14.5 Distribution Width Platelet Count 223 Mean Platelet Volume 12.9 H Immature 0.700 H Granulocytes % Neutrophils % 70.3 Lymphocytes % 16.4 Monocytes % 8.7 Eosinophils % 2.6 Basophils % 1.3 Nucleated Red Blood 0.0 Cells % Immature 0.060 H Granulocytes # Neutrophils # 6.1 Lymphocytes # 1.4 Monocytes # 0.8 Eosinophils # 0.2 Basophils # 0.1 Nucleated Red Blood 0.0 Cells # Sodium Level 142 Potassium Level 5.4 H Chloride Level 97 Carbon Dioxide Level 34 H Anion Gap 11 Blood Urea Nitrogen 27 #H Creatinine 6.82 #H Est Glomerular 9 L Filtrat Rate mL/min Glucose Level 104 # Calcium Level 8.6 Total Bilirubin 0.1 L Direct Bilirubin 0.00 Indirect Bilirubin 0.1 Aspartate Amino 29 Transf (AST/SGOT) Alanine 22 Aminotransferase (AL T/SGPT) Alkaline Phosphatase 83 Total Protein 7.5 Albumin 4.0 Globulin 3.50 H Albumin/Globulin 1.14 Ratio Amylase Level 109 Lipase 77 Subjective 24 Hr Interval Summary Free Text/Dictation Patient feels better with slight abdominal pain. This post HD yesterday Exam/Review of Systems Exam Vitals Vital Signs Date Temp Pulse Resp B/P (MAP) Pulse Ox O2 O2 Flow FiO2 Time Delivery Rate 06/26/18 98.0 83 18 124/68 97 Nasal 15:08 (86) Cannula Intake and Output 06/25/18 06/25/18 06/26/18 1515:00 23:00 07:00 OutputOutput Total 3400 ml BalanceBalance -3400 ml Exam GENERAL: The patient is awake, alert, oriented, appears to be in mild to moderate distress secondary to pain. HEENT: Pupils are equal, round, reactive to light. The patient has blurry vision in both eyes and actually, the patient is blind on the left eye. HEART: Regular rate, rhythm. LUNGS: Clear to auscultate bilaterally. ABDOMEN: The patient has tenderness present in the left upper quadrant. EXTREMITIES: No clubbing, cyanosis or edema. SKIN: The patient has a right-sided PermCath in place. Results Results 24hrs Laboratory Tests Test 06/25/18 17:16 06/26/18 06:08 06/26/18 08:09 06/26/18 12:02 Bedside Glucose 113 127 124 White Blood Count 8.6 Red Blood Count 3.95 L Hemoglobin 12.4 L Hematocrit 39.0 L Mean Corpuscular 98.7 Volume Mean Corpuscular 31.4 Hemoglobin Mean Corpuscular 31.8 L Hemoglobin Concent Red Cell 14.5 Distribution Width Platelet Count 223 Mean Platelet Volume 12.9 H Immature 0.700 H Granulocytes % Neutrophils % 70.3 Lymphocytes % 16.4 Monocytes % 8.7 Eosinophils % 2.6 Basophils % 1.3 Nucleated Red Blood 0.0 Cells % Immature 0.060 H Granulocytes # Neutrophils # 6.1 Lymphocytes # 1.4 Monocytes # 0.8 Eosinophils # 0.2 Basophils # 0.1 Nucleated Red Blood 0.0 Cells # Sodium Level 142 Potassium Level 5.4 H Chloride Level 97 Carbon Dioxide Level 34 H Anion Gap 11 Blood Urea Nitrogen 27 #H Creatinine 6.82 #H Est Glomerular 9 L Filtrat Rate mL/min Glucose Level 104 # Calcium Level 8.6 Total Bilirubin 0.1 L Direct Bilirubin 0.00 Indirect Bilirubin 0.1 Aspartate Amino 29 Transf (AST/SGOT) Alanine 22 Aminotransferase (AL T/SGPT) Alkaline Phosphatase 83 Total Protein 7.5 Albumin 4.0 Globulin 3.50 H Albumin/Globulin 1.14 Ratio Amylase Level 109 Lipase 77 Medications Medication Current Medications Sodium Chloride 1,000 ml @ 50 mls/hr Q20H IV Last administered on 06/26/18 02:58; Admin Dose 50 MLS/HR; Start 06/25/18 at 11:07 IV Flush (NS 3 ml) 3 ml PER PROTOCOL IV ; Start 06/25/18 at 11:30 Ondansetron HCl (Zofran Tab) 4 mg Q6H PRN PO NAUSEA/VOMITING Last administered on 06/25/18 21:49; Admin Dose 4 MG; Start 06/25/18 at 11:30 Hydromorphone HCl (Dilaudid) 0.5 mg Q4H PRN IV .SEVERE PAIN 7-10 Last administered on 06/26/18 12:42; Admin Dose 0.5 MG; Start 06/25/18 at 11:30 Famotidine (Pepcid Iv) 20 mg BID IV Last administered on 06/26/18 08:17; Admin Dose 20 MG; Start 06/25/18 at 12:16 Calcium Acetate (Phoslo) 2,001 mg WITH MEALS PO Last administered on 06/25/18 21:01; Admin Dose 2,001 MG; Start 06/25/18 at 18:00 Escitalopram Oxalate (Lexapro) 10 mg DAILY PO Last administered on 06/25/18 13:01; Admin Dose 10 MG; Start 06/25/18 at 13:00 Furosemide (Lasix) 40 mg BID DIURETICS PO Last administered on 06/26/18 05:57; Admin Dose 40 MG; Start 06/25/18 at 13:00 Clonidine (Catapres) 0.2 mg Q8 PRN PO ELEVATED SYSTOLIC BP Last administered on 06/25/18at 13:04; Admin Dose 0.2 MG; Start 06/25/18 at 12:37 Nifedipine (Procardia Xl) 30 mg DAILY PO Last administered on 06/26/18at 08:17; Admin Dose 30 MG; Start 06/26/18 at 09:00 Insulin Aspart (Novolog Insulin Pen) NOVOLOG *MODERATE* ALGORITHM WITH MEALS BEDTIME SC ; Start 06/26/18 at 07:55 Heparin Sodium (Porcine) (Heparin (1000 Units/ml)) 3,300 unit AFTER DIALYSIS CATHETER Last administered on 06/26/18at 00:53; Admin Dose 3,300 UNIT; Start 06/25/18 at 23:30 Carvedilol (Coreg) 12.5 mg BID PO Last administered on 06/26/18at 09:51; Admin Dose 12.5 MG; Start 06/26/18 at 09:02 MIKE GIFFORD MD Jun 26, 2018 15:59
[2018-06-26] MEDS ORDERED: GLUCOSE GEL 15 GRAM TUBE BUCCAL PRN (17:00)
[2018-06-26] MEDS ORDERED: GLUCOSE GEL 15 GRAM TUBE PO PRN ×2 (17:00)
[2018-06-26] MEDS ORDERED: GLUCAGON 1 MG INJ IM PRN (17:00)
[2018-06-26] MEDS ORDERED: DEXTROSE 50% 50 ML SYRINGE IV PRN ×2 (17:00)
--- NOTE | 2018-06-26 18:56 | CONS ---
Assessment/Plan Assessment/Plan Assessment/Plan (Daily) IMPRESSION: 1. Acute pancreatitis. Etiology is unclear. At this point, it is not related to any kind of medication. Biliary system is normal. No evidence of biliary pancreatitis at this point. 2. End-stage renal disease. 3. Diabetes mellitus. 4. As per the record, history of ethanol abuse in the past. Plan Start the patient on a good diet and advance it. Patient ambulates lipase is back to normal MRCP also was normal. No evidence of pancreatic divisum or bile duct stone. No evidence of fever and pancreatitis. Patient's triglyceride is also within normal limit Consultation Date/Type/Reason Admit Date/Time Jun 25, 2018 at 14:25 Initial Consult Date Date/Time of Note DATE: 06/26/18 TIME: 18:55 24 HR Interval Summary Free Text/Dictation Patient denies of nausea vomiting or epigastric pain He does not communicate much Constitutional: improved Exam/Review of Systems Exam Vitals Vital Signs Date Temp Pulse Resp B/P (MAP) Pulse Ox O2 O2 Flow FiO2 Time Delivery Rate 06/26/18 72 16:27 06/26/18 98.0 18 124/68 97 Nasal 15:08 (86) Cannula Intake and Output 06/25/18 06/25/18 06/26/18 1515:00 23:00 07:00 OutputOutput Total 3400 ml BalanceBalance -3400 ml Constitutional: alert, oriented, well developed Psych: no complaints, nl mood/affect Head: normocephalic, atraumatic Eyes: nl conjunctiva, EOMI, nl lids, nl sclera, PERRL ENMT: nl external ears & nose, nl lips & teeth, nl nasal mucosa & septum Neck: supple, non-tender Respiratory: clear to auscultation, normal air movement Cardiovascular: regular rate and rhythm, nl pulses Gastrointestinal: soft, nl liver, spleen, non-tender Musculoskeletal: nl extremities to inspection, nl gait and stance Extremities: normal pulses Neurological: STRUCTURAL RIGGER II-XII intact, nl mental status, nl speech, nl strength Skin: nl turgor; No rash or lesions Lymph: nl lymph nodes Results Result Diagram: 06/26/18 0608 06/26/18 0608 Results 24hrs Laboratory Tests Test 06/26/18 06:08 06/26/18 08:09 06/26/18 12:02 06/26/18 16:53 White Blood Count 8.6 Red Blood Count 3.95 L Hemoglobin 12.4 L Hematocrit 39.0 L Mean Corpuscular 98.7 Volume Mean Corpuscular 31.4 Hemoglobin Mean Corpuscular 31.8 L Hemoglobin Concent Red Cell 14.5 Distribution Width Platelet Count 223 Mean Platelet Volume 12.9 H Immature 0.700 H Granulocytes % Neutrophils % 70.3 Lymphocytes % 16.4 Monocytes % 8.7 Eosinophils % 2.6 Basophils % 1.3 Nucleated Red Blood 0.0 Cells % Immature 0.060 H Granulocytes # Neutrophils # 6.1 Lymphocytes # 1.4 Monocytes # 0.8 Eosinophils # 0.2 Basophils # 0.1 Nucleated Red Blood 0.0 Cells # Sodium Level 142 Potassium Level 5.4 H Chloride Level 97 Carbon Dioxide Level 34 H Anion Gap 11 Blood Urea Nitrogen 27 #H Creatinine 6.82 #H Est Glomerular 9 L Filtrat Rate mL/min Glucose Level 104 # Calcium Level 8.6 Total Bilirubin 0.1 L Direct Bilirubin 0.00 Indirect Bilirubin 0.1 Aspartate Amino 29 Transf (AST/SGOT) Alanine 22 Aminotransferase (AL T/SGPT) Alkaline Phosphatase 83 Total Protein 7.5 Albumin 4.0 Globulin 3.50 H Albumin/Globulin 1.14 Ratio Amylase Level 109 Lipase 77 Bedside Glucose 127 124 129 Medications Medication Current Medications IV Flush (NS 3 ml) 3 ml PER PROTOCOL IV ; Start 06/25/18 at 11:30 Ondansetron HCl (Zofran Tab) 4 mg Q6H PRN PO NAUSEA/VOMITING Last administered on 06/25/18at 21:49; Admin Dose 4 MG; Start 06/25/18 at 11:30 Hydromorphone HCl (Dilaudid) 0.5 mg Q4H PRN IV .SEVERE PAIN 7-10 Last administered on 06/26/18at 17:04; Admin Dose 0.5 MG; Start 06/25/18 at 11:30 Famotidine (Pepcid Iv) 20 mg BID IV Last administered on 06/26/18at 08:17; Admin Dose 20 MG; Start 06/25/18 at 12:16 Calcium Acetate (Phoslo) 2,001 mg WITH MEALS PO Last administered on 06/25/18at 21:01; Admin Dose 2,001 MG; Start 06/25/18 at 18:00 Escitalopram Oxalate (Lexapro) 10 mg DAILY PO Last administered on 06/25/18at 13:01; Admin Dose 10 MG; Start 06/25/18 at 13:00 Furosemide (Lasix) 40 mg BID DIURETICS PO Last administered on 06/26/18at 17:08; Admin Dose 40 MG; Start 06/25/18 at 13:00 Clonidine (Catapres) 0.2 mg Q8 PRN PO ELEVATED SYSTOLIC BP Last administered on 06/25/18at 13:04; Admin Dose 0.2 MG; Start 06/25/18 at 12:37 Nifedipine (Procardia Xl) 30 mg DAILY PO Last administered on 06/26/18 08:17; Admin Dose 30 MG; Start 06/26/18 at 09:00 Insulin Aspart (Novolog Insulin Pen) NOVOLOG *MODERATE* ALGORITHM WITH MEALS BEDTIME SC ; Start 06/26/18 at 07:55 Heparin Sodium (Porcine) (Heparin (1000 Units/ml)) 3,300 unit AFTER DIALYSIS CATHETER Last administered on 06/26/18at 16:13; Admin Dose 3,300 UNIT; Start 06/25/18 at 23:30 Carvedilol (Coreg) 12.5 mg BID PO Last administered on 06/26/18at 09:51; Admin Dose 12.5 MG; Start 06/26/18 at 09:02 Miscellaneous Information 1 ea NOTE XX ; Start 06/26/18 at 17:00 Glucose (Glutose) 15 gm Q15M PRN PO DECREASED GLUCOSE; Start 06/26/18 at 17:00 Glucose (Glutose) 22.5 gm Q15M PRN PO DECREASED GLUCOSE; Start 06/26/18 at 17:00 Dextrose (D50w Syringe) 25 ml Q15M PRN IV DECREASED GLUCOSE; Start 06/26/18 at 17:00 Dextrose (D50w Syringe) 50 ml Q15M PRN IV DECREASED GLUCOSE; Start 06/26/18 at 17:00 Glucagon (Glucagen) 1 mg Q15M PRN IM DECREASED GLUCOSE; Start 06/26/18 at 17:00 Glucose (Glutose) 15 gm Q15M PRN BUCCAL DECREASED GLUCOSE; Start 06/26/18 at 17:00 MAXIMO KUHN MD Jun 26, 2018 18:56
[2018-06-27] VITALS: BP 153/89; PULSE 79; PULSE 83; RESP 18
[2018-06-27] MEDS: HYDROmorphONE 0.5 MG/0.5 ML SYG IV PRN ×3 (00:27→09:52)
[2018-06-27 04:00] VITALS: PULSE 68
[2018-06-27] MEDS: FUROSEMIDE 40 MG TAB PO SCH (05:31)
[2018-06-27] MEDS: INSULIN ASPART [NOVOLOG] 3 ML PEN SC SCH ×2 (07:38→11:52)
[2018-06-27 07:44] VITALS: BP 147/76; PULSE 69; RESP 19
[2018-06-27] MEDS: CALCIUM ACETATE 667 MG CAP PO SCH ×2 (07:55→11:48)
[2018-06-27] MEDS: ESCITALOPRAM 10 MG TAB PO SCH (08:24)
[2018-06-27] MEDS: FAMOTIDINE 20 MG INJ IV SCH (08:25)
[2018-06-27 08:27] VITALS: PULSE 68
--- NOTE | 2018-06-27 10:27 | PN ---
Date/Time of Note Date/Time of Note DATE: 06/27/18 TIME: 10:16 Assessment/Plan VTE Prophylaxis Risk score (from Ns)>0 risk: 1 SCD applied (from Ns): No SCD contraindicated: low risk/ambulating Pharmacological prophylaxis: NA/contraindicated Pharm contraindication: low risk/ambulating Lines/Catheters IV [facility]from [facility] [place] Assessment/Plan Hospital Course 1 left upper quadrant pain to the back. Lipase is elevated, suggestive of pancreatitis. CT of the abdomen and pelvis is negative for any stones. Etiology questionable alcohol 2. Hypertensive urgency/emergency. The patient has not taken his blood pressure medicines due to the pain and vomiting. 3. Diabetes with complication of diabetic neuropathy, retinopathy, nephropathy. 4. End-stage renal disease, on hemodialysis. TTS 5. Hyperkalemia, likely secondary to noncompliance. 6. Depression. 7. History of drug abuse. 8. History of pancreatitis. 9. Anemia of chronic disease Assessment/Plan -Advance diet to soft renal, lipase normal -pain control -pt refused AV fistula -MRCP is negative -Continue dialysis for today for hyperkalemia and for the patient to be back on schedule -bP controlled with nifedipine/Coreg/lasix -fu GI recs -c/w HD -GI/DVT prophylaxis FAmotodine and ambulation Result Diagram: 06/26/18 0608 06/27/18 0702 Results 24hrs Laboratory Tests Test 06/26/18 12:02 06/26/18 16:53 06/26/18 19:00 06/26/18 21:14 Bedside Glucose 124 129 167 Urine Color YELLOW Urine Clarity SLIGHTLY CLOUDY A Urine pH 8.0 Urine Specific 1.018 [place] Urine Ketones NEGATIVE Urine Nitrite NEGATIVE Urine Bilirubin NEGATIVE Urine NEGATIVE Urobilinogen Urine Leukocyte NEGATIVE Esterase Urine Microscopic 3 RBC Urine Microscopic 10 H WBC Urine Squamous FEW Epithelial Cells Urine Mucus FEW A Urine Hemoglobin NEGATIVE Urine Glucose 3+ H Urine Total 3+ H Protein Test 06/27/18 07:02 06/27/18 07:37 Sodium Level 133 L Potassium Level 4.9 Chloride Level 95 L Carbon Dioxide 28 Level Anion Gap 10 Blood Urea 24 H Nitrogen Creatinine 6.80 H Est Glomerular 9 L Filtrat Rate mL/min Glucose Level 129 Calcium Level 8.5 Lipase 81 Bedside Glucose 123 Subjective 24 Hr Interval Summary Gastrointestinal: pain, nausea; No no complaints, No blood, No constipation, No decreased appetite, No diarrhea, No flatus, No passing stool, No vomiting, No other Exam/Review of Systems Exam Vitals Vital Signs Date Temp Pulse Resp B/P (MAP) Pulse Ox O2 O2 Flow FiO2 Time Delivery Rate 06/27/18 68 08:27 06/27/18 98.1 19 147/76 97 07:44 (99) 06/27/18 Room Air 00:00 Intake and Output 06/26/18 06/26/18 06/27/18 1515:00 23:00 07:00 IntakeIntake Total 680 ml 400 ml OutputOutput Total 200 ml 2500 ml BalanceBalance -200 ml -1820 ml 400 ml Exam right chest Permcath Constitutional: alert, oriented ENMT: nl external ears & nose Respiratory: clear to auscultation Cardiovascular: regular rate and rhythm Gastrointestinal: soft Genitourinary - Male: CVA tenderness; No nl penis, No nl scrotum, No discharge, No other Results Results 24hrs Laboratory Tests Test 06/26/18 12:02 06/26/18 16:53 06/26/18 19:00 06/26/18 21:14 Bedside Glucose 124 129 167 Urine Color YELLOW Urine Clarity SLIGHTLY CLOUDY A Urine pH 8.0 Urine Specific 1.018 [place] Urine Ketones NEGATIVE Urine Nitrite NEGATIVE Urine Bilirubin NEGATIVE Urine NEGATIVE Urobilinogen Urine Leukocyte NEGATIVE Esterase Urine Microscopic 3 RBC Urine Microscopic 10 H WBC Urine Squamous FEW Epithelial Cells Urine Mucus FEW A Urine Hemoglobin NEGATIVE Urine Glucose 3+ H Urine Total 3+ H Protein Test 06/27/18 07:02 06/27/18 07:37 Sodium Level 133 L Potassium Level 4.9 Chloride Level 95 L Carbon Dioxide 28 Level Anion Gap 10 Blood Urea 24 H Nitrogen Creatinine 6.80 H Est Glomerular 9 L Filtrat Rate mL/min Glucose Level 129 Calcium Level 8.5 Lipase 81 Bedside Glucose 123 Medications Medication Current Medications IV Flush (NS 3 ml) 3 ml PER PROTOCOL IV ; Start 06/25/18 at 11:30 Ondansetron HCl (Zofran Tab) 4 mg Q6H PRN PO NAUSEA/VOMITING Last administered on 06/25/18at 21:49; Admin Dose 4 MG; Start 06/25/18 at 11:30 Hydromorphone HCl (Dilaudid) 0.5 mg Q4H PRN IV .SEVERE PAIN 7-10 Last administered on 06/27/18 09:52; Admin Dose 0.5 MG; Start 06/25/18 at 11:30 Famotidine (Pepcid Iv) 20 mg BID IV Last administered on 06/27/18at 08:25; Admin Dose 20 MG; Start 06/25/18 at 12:16 Calcium Acetate (Phoslo) 2,001 mg WITH MEALS PO Last administered on 06/25/18 21:01; Admin Dose 2,001 MG; Start 06/25/18 at 18:00 Escitalopram Oxalate (Lexapro) 10 mg DAILY PO Last administered on 06/25/18 13:01; Admin Dose 10 MG; Start 06/25/18 at 13:00 Furosemide (Lasix) 40 mg BID DIURETICS PO Last administered on 06/27/18 05:31; Admin Dose 40 MG; Start 06/25/18 at 13:00 Clonidine (Catapres) 0.2 mg Q8 PRN PO ELEVATED SYSTOLIC BP Last administered on 06/27/18at 00:30; Admin Dose 0.2 MG; Start 06/25/18 at 12:37 Nifedipine (Procardia Xl) 30 mg DAILY PO Last administered on 06/26/18 08:17; Admin Dose 30 MG; Start 06/26/18 at 09:00 Insulin Aspart (Novolog Insulin Pen) NOVOLOG *MODERATE* ALGORITHM WITH MEALS BEDTIME SC ; Start 06/26/18 at 07:55 Heparin Sodium (Porcine) (Heparin (1000 Units/ml)) 3,300 unit AFTER DIALYSIS CATHETER Last administered on 06/26/18at 16:13; Admin Dose 3,300 UNIT; Start 06/25/18 at 23:30 Carvedilol (Coreg) 12.5 mg BID PO Last administered on 06/27/18 08:25; Admin Dose 12.5 MG; Start 06/26/18 at 09:02 Miscellaneous Information 1 ea NOTE XX ; Start 06/26/18 at 17:00 Glucose (Glutose) 15 gm Q15M PRN PO DECREASED GLUCOSE; Start 06/26/18 at 17:00 Glucose (Glutose) 22.5 gm Q15M PRN PO DECREASED GLUCOSE; Start 06/26/18 at 17:00 Dextrose (D50w Syringe) 25 ml Q15M PRN IV DECREASED GLUCOSE; Start 06/26/18 at 17:00 Dextrose (D50w Syringe) 50 ml Q15M PRN IV DECREASED GLUCOSE; Start 06/26/18 at 17:00 Glucagon (Glucagen) 1 mg Q15M PRN IM DECREASED GLUCOSE; Start 06/26/18 at 17:00 Glucose (Glutose) 15 gm Q15M PRN BUCCAL DECREASED GLUCOSE; Start 06/26/18 at 17:00 CALLY PERKINS Jun 27, 2018 10:26
[2018-06-27] MEDS: NIFEdipine (XL) 30 MG TAB PO SCH (10:32)
--- NOTE | 2018-06-27 10:32 | PDOCDIS ---
Discharge Instructions DIAGNOSIS Discharge Diagnosis exacerbation of chronic pancreatitis CONDITION [id number] Patient Condition: [id number] Stable HOME CARE INSTRUCTIONS: [id number] Diet Instructions: [id number] Low Fat /Cholesterol [id number] Special Diet: [id number] renal ACTIVITY: [id number] Activity Restrictions: [id number] Slowly Increase Activity Rest between Activity Avoid heavy lifting FOLLOW UP/APPOINTMENTS Follow-up Plan PCP 2 weeks CALLY PERKINS Jun 27, 2018 10:32
[2018-06-27] MEDS ORDERED: HYDR-4011 PO (10:33)
--- NOTE | 2018-06-27 10:34 | DS ---
Date/Time of Note Date/Time of Note DATE: 06/27/18 TIME: 10:34 Discharge Summary Admission/Discharge Info Admit Date/Time Jun 25, 2018 at 14:25 Discharge Date/Time Discharge Diagnosis exacerbation of chronic pancreatitis Patient Condition: Stable Hospital Course HISTORY OF PRESENTING ILLNESS: This is a 32-year-old male with a past medical history of diabetes, hypertension, end-stage renal disease on hemodialysis, hyperlipidemia, chronic opioid use, presented to the emergency department after feeling left upper quadrant pain, epigastric pain for the last 3 to 4 days. According to the patient, he has been going regularly to his dialysis session. He went for his dialysis session yesterday. The patient is status post ch olecystectomy. The patient comes to the emergency department complaining of left upper quadrant pain for the last 3 to 4 days. The patient denies any alcohol abuse, he said he used alcohol in past. Denies any hematemesis, any melena, any bright red blood per rectum. On arrival to ED, initial blood pressure was 242/129, temperature 97.7, pulse 87, respirations 18, saturating 99%. White count was 10.0, hemoglobin 12.6, platelet count 231, potassium 5.8, BUN of 38, creatinine 8.85, lipase 2471. Hepatitis B was negative. The patient had a CT of the abdomen and pelvis that showed moderate stool burden. Colon is otherwise stable. CT scan showed:No calcified ureteral calculi or obstructive uropathy status post prior cholecystectomy. No evidence of biliary ductal dilatation. The patient was given has NS bolus, Dilaudid, Zofran, nifedipine, clonidine, hydralazine 10 mg IV for blood pressure and was admitted for further management. PAST MEDICAL HISTORY: 1. 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 2. End-stage renal disease on hemodialysis for the past few months Saturday, and Saturday. 3. Hypertension. 4. Hyperlipidemia. 5. History of drug use. 6. History of pancreatitis. 7. History of gallstones, status post cholecystectomy. 8. 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 The patient also says that his right eye has been losing vision too which is old. Admission Ds: 1 left upper quadrant pain to the back. Lipase is elevated, suggestive of pancreatitis. CT of the abdomen and pelvis is negative for any stones. Etiology questionable alcohol 2. Hypertensive urgency/emergency. The patient has not taken his blood pressure medicines due to the pain and vomiting. 3. Diabetes with complication of diabetic neuropathy, retinopathy, nephropathy. 4. End-stage renal disease, on hemodialysis. TTS 5. Hyperkalemia, likely secondary to noncompliance. 6. Depression. 7. History of drug abuse. 8. History of pancreatitis. 9. Anemia of chronic disease During hospitalization pt was on telemetry service. His lipase was around 200 on admission, triglycerides also were 200, in 2 days of NPO they normalized. Dr Duong was GI specialist, he reviewed CT scan of abdomen and MRCP that were negative and he indicated in his notes no evidence of pancreatic divisum or bile duct stone. Pt was started on clear diet and then diet was advanced. Pt was ambulated, he had HD session regularly and there were no fever, abdominal pain subsided. Pt tolerated soft renal diet and was discharged home. Home Meds Active Scripts Hydrocodone/Acetaminophen ([place] 5-325 Tablet) 1 Each Tablet, 1 EACH PO Q6 for 7 Days, TAB Prov:CALLY PERKINS 06/27/18 Reported Medications Nifedipine* (Nifedipine ER*) 30 Mg Tablet.sa, 30 MG PO DAILY, TAB.SA 06/25/18 Gabapentin* (Gabapentin*) 300 Mg Capsule, 300 MG PO QHS, #60 CAP 06/25/18 Carvedilol* (Coreg*) 12.5 Mg Tablet, 12.5 MG PO BID, #60 TAB 06/25/18 Simvastatin* (Zocor*) 20 Mg Tablet, 20 MG PO QHS, #30 TAB 04/02/18 Insulin Aspart* (Novolog Insulin Pen*) 100 Unit/Ml Soln, 0 SC .SLIDING SCALE AC, EA 03/17/18 Insulin Glargine,Hum.rec.anlog (Basaglar Kwikpen U-100) 100 Unit/1 Ml Insuln.pen, 15 UNIT SC QACarmella, EA 03/17/18 Escitalopram Oxalate* (Lexapro*) 10 Mg Tablet, 10 MG PO DAILY, #30 TAB 12/05/17 Furosemide* (Furosemide*) 40 Mg Tablet, 40 MG PO BID, TAB 12/05/17 Calcium Acetate* (Calcium Acetate*) 667 Mg Capsule, 2001 MG PO WITH MEALS, #30 CAP 12/05/17 Discontinued Reported Medications Ergocalciferol (Vitamin D2) (VITAMIN D2) 50,000 Unit Capsule, 43180 UNIT PO Q SUN, CAP 03/17/18 Gabapentin* (Gabapentin*) 300 Mg Capsule, 300 MG PO QHS, #60 CAP 12/05/17 Discontinued Scripts Hydroxyzine Pamoate* (Hydroxyzine Pamoate*) 25 Mg Capsule, 50 MG PO BID PRN for ANXIETY for 14 Days, CAP Prov:MIKE GIFFORD MD 03/20/18 Carvedilol* (Coreg*) 12.5 Mg Tablet, 12.5 MG PO BID for 30 Days, #60 TAB Prov:MIKE GIFFORD MD 03/20/18 Nifedipine* (Nifedipine ER*) 30 Mg Tablet.sa, 30 MG PO DAILY for 30 Days, TAB.SA Prov:MIKE GIFFORD MD 03/20/18 Follow-up Plan PCP 2 weeks Primary Care Provider Not On Staff Doctor Time spent on discharge: < 30 minutes Pending Labs Laboratory Tests Test 06/26/18 12:02 06/26/18 16:53 06/26/18 19:00 06/26/18 21:14 Bedside 124 129 167 Glucose mg/dL (70-220) mg/dL (70-220) mg/dL (70-220) Urine Color YELLOW (YELLOW ) Urine Clarity SLIGHTLY CLOUD Y (CLEAR) Urine pH 8.0 (5.0-9.0) Urine Specific 1.018 (1.003-1 [place] .030) Urine Ketones NEGATIVE mg/dL (NEGATIV E) Urine Nitrite NEGATIVE mg/dL (NEGATIV E) Urine NEGATIVE Bilirubin mg/dL (NEGATIV E) Urine NEGATIVE Urobilinogen mg/dL (NEGATIV E) Urine Leukocyte NEGATIVE Nicci/u Esterase l Urine 3 /HPF (0-5) Microscopic RBC Urine 10 /HPF (0-5) Microscopic WBC Urine Squamous FEW /HPF (FEW) Epithelial Cell s Urine Mucus FEW /HPF (NONE SEEN) Urine NEGATIVE Hemoglobin mg/dL (NEGATIV E) Urine Glucose 3+ mg/dL (NEGATIV E) Urine Total 3+ Protein mg/dl (NEGATIV E) Test 06/27/18 07:02 06/27/18 07:37 Sodium Level 133 mmol/L (135-144 ) Potassium 4.9 Level mmol/L (3.5-5.1 ) Chloride Level 95 mmol/L (97-110) Carbon Dioxide 28 Level mmol/L (21-31) Anion Gap 10 (5-13) Blood Urea 24 mg/dl (7-20) Nitrogen Creatinine 6.80 mg/dl (0.61-1.2 4) Est Glomerular 9 mL/min (>60) Filtrat Rate mL/min Glucose Level 129 mg/dl (70-220) Calcium Level 8.5 mg/dl (8.4-10.2 ) Lipase 81 U/L (23-300) Bedside 123 Glucose mg/dL (70-220) CALLY PERKINS 29, 2019 10:34
[2018-06-27 11:38] VITALS: BP 136/84; PULSE 67; RESP 19
[2018-06-27 13:52] VITALS: PULSE 67
--- NOTE | 2018-06-27 16:00 | CONS ---
Assessment/Plan Assessment/Plan Assessment/Plan (Daily) Assessment/Plan (Daily) IMPRESSION: 1. Acute pancreatitis. Etiology is unclear. At this point, it is not related to any kind of medication. Biliary system is normal. No evidence of biliary pancreatitis at this point. 2. End-stage renal disease. 3. Diabetes mellitus. 4. As per the record, history of ethanol abuse in the past. Plan Start the patient on a good diet and advance it. Patient ambulates lipase is back to normal MRCP also was normal. No evidence of pancreatic divisum or bile duct stone. No evidence of fever and pancreatitis. Patient's triglyceride is also within normal limit Patient is stable from GI point and can be discharged Consultation Date/Type/Reason Admit Date/Time Jun 25, 2018 at 14:25 Initial Consult Date Date/Time of Note DATE: 06/27/18 TIME: 16:00 24 HR Interval Summary Constitutional: no complaints, improved Exam/Review of Systems Exam Vitals Vital Signs Date Temp Pulse Resp B/P (MAP) Pulse Ox O2 O2 Flow FiO2 Time Delivery Rate 06/27/18 67 13:52 06/27/18 98.2 19 136/84 97 11:38 (101) 06/27/18 Room Air 00:00 Intake and Output 06/26/18 06/26/18 06/27/18 1515:00 23:00 07:00 IntakeIntake Total 680 ml 400 ml OutputOutput Total 200 ml 2500 ml BalanceBalance -200 ml -1820 ml 400 ml Constitutional: alert, oriented, well developed Psych: no complaints, nl mood/affect Head: normocephalic, atraumatic Eyes: nl conjunctiva, EOMI, nl lids, nl sclera, PERRL ENMT: nl external ears & nose, nl lips & teeth, nl nasal mucosa & septum Neck: supple, non-tender Respiratory: clear to auscultation, normal air movement Cardiovascular: regular rate and rhythm, nl pulses Gastrointestinal: soft, nl liver, spleen, non-tender Musculoskeletal: nl extremities to inspection, nl gait and stance Extremities: normal pulses Neurological: WORKFORCE MA[employer] II-XII intact, nl mental status, nl speech, nl strength Skin: nl turgor; No rash or lesions Lymph: nl lymph nodes Results Result Diagram: 06/26/18 0608 06/27/18 0702 Results 24hrs Laboratory Tests Test 06/26/18 16:53 06/26/18 19:00 06/26/18 21:14 06/27/18 07:02 Bedside Glucose 129 167 Urine Color YELLOW Urine Clarity SLIGHTLY CLOUDY A Urine pH 8.0 Urine Specific 1.018 [place] Urine Ketones NEGATIVE Urine Nitrite NEGATIVE Urine Bilirubin NEGATIVE Urine NEGATIVE Urobilinogen Urine Leukocyte NEGATIVE Esterase Urine Microscopic 3 RBC Urine Microscopic 10 H WBC Urine Squamous FEW Epithelial Cells Urine Mucus FEW A Urine Hemoglobin NEGATIVE Urine Glucose 3+ H Urine Total 3+ H Protein Sodium Level 133 L Potassium Level 4.9 Chloride Level 95 L Carbon Dioxide 28 Level Anion Gap 10 Blood Urea 24 H Nitrogen Creatinine 6.80 H Est Glomerular 9 L Filtrat Rate mL/min Glucose Level 129 Calcium Level 8.5 Lipase 81 Test 06/27/18 07:37 06/27/18 11:46 Bedside Glucose 123 198 Medications Medication Current Medications IV Flush (NS 3 ml) 3 ml PER PROTOCOL IV ; Start 06/25/18 at 11:30 Ondansetron HCl (Zofran Tab) 4 mg Q6H PRN PO NAUSEA/VOMITING Last administered on 06/25/18 21:49; Admin Dose 4 MG; Start 06/25/18 at 11:30 Hydromorphone HCl (Dilaudid) 0.5 mg Q4H PRN IV .SEVERE PAIN 7-10 Last administered on 06/27/18 09:52; Admin Dose 0.5 MG; Start 06/25/18 at 11:30 Famotidine (Pepcid Iv) 20 mg BID IV Last administered on 06/27/18 08:25; Admin Dose 20 MG; Start 06/25/18 at 12:16 Calcium Acetate (Phoslo) 2,001 mg WITH MEALS PO Last administered on 06/27/18 11:48; Admin Dose 2,001 MG; Start 06/25/18 at 18:00 Escitalopram Oxalate (Lexapro) 10 mg DAILY PO Last administered on 06/25/18 13:01; Admin Dose 10 MG; Start 06/25/18 at 13:00 Furosemide (Lasix) 40 mg BID DIURETICS PO Last administered on 06/27/18 05:31; Admin Dose 40 MG; Start 06/25/18 at 13:00 Clonidine (Catapres) 0.2 mg Q8 PRN PO ELEVATED SYSTOLIC BP Last administered on 06/27/18 00:30; Admin Dose 0.2 MG; Start 06/25/18 at 12:37 Nifedipine (Procardia Xl) 30 mg DAILY PO Last administered on 06/27/18 10:32; Admin Dose 30 MG; Start 06/26/18 at 09:00 Insulin Aspart (Novolog Insulin Pen) NOVOLOG *MODERATE* ALGORITHM WITH MEALS BEDTIME SC Last administered on 06/27/18 11:52; Admin Dose 4 UNIT; Start 06/26/18 at 07:55 Heparin Sodium (Porcine) (Heparin (1000 Units/ml)) 3,300 unit AFTER DIALYSIS CATHETER Last administered on 06/26/18 16:13; Admin Dose 3,300 UNIT; Start 06/25/18 at 23:30 Carvedilol (Coreg) 12.5 mg BID PO Last administered on 06/27/18 08:25; Admin Dose 12.5 MG; Start 06/26/18 at 09:02 Miscellaneous Information 1 ea NOTE XX ; Start 06/26/18 at 17:00 Glucose (Glutose) 15 gm Q15M PRN PO DECREASED GLUCOSE; Start 06/26/18 at 17:00 Glucose (Glutose) 22.5 gm Q15M PRN PO DECREASED GLUCOSE; Start 06/26/18 at 17:00 Dextrose (D50w Syringe) 25 ml Q15M PRN IV DECREASED GLUCOSE; Start 06/26/18 at 17:00 Dextrose (D50w Syringe) 50 ml Q15M PRN IV DECREASED GLUCOSE; Start 06/26/18 at 17:00 Glucagon (Glucagen) 1 mg Q15M PRN IM DECREASED GLUCOSE; Start 06/26/18 at 17:00 Glucose (Glutose) 15 gm Q15M PRN BUCCAL DECREASED GLUCOSE; Start 06/26/18 at 17:00 MAXIMO KUHN MD Jun 27, 2018 16:00
== END 2018-06-27 14:57 | disposition home or self-care (01) | DRG 438 ==
LOC: E/R 07:43 → CANRESERV 10:10 → TEL 14:25 → EDBEDREQTM 14:27 → EDBEDREQ 14:27 → EDBEDREQSVC 14:27
PROVIDERS: ADMIT Internal Medicine; ATTEND Internal Medicine
PROC: 5A1D70Z Performance of Urinary Filtration, Intermittent, Less than 6 Hours Per Day (ICD-10-PCS; 2018-06-25)
PROC: 5A1D70Z Performance of Urinary Filtration, Intermittent, Less than 6 Hours Per Day (ICD-10-PCS; principal; 2018-06-26)
DX: K85.90 Acute pancreatitis without necrosis or infection, unspecified (principal); N18.6 End stage renal disease; I12.0 Hypertensive chronic kidney disease with stage 5 chronic kidney disease or end stage renal disease; I16.1 Hypertensive emergency; E11.21 Type 2 diabetes mellitus with diabetic nephropathy; E11.40 Type 2 diabetes mellitus with diabetic neuropathy, unspecified; E11.22 Type 2 diabetes mellitus with diabetic chronic kidney disease; E11.319 Type 2 diabetes mellitus with unspecified diabetic retinopathy without macular edema; E87.5 Hyperkalemia; F41.9 Anxiety disorder, unspecified; F32.9 Major depressive disorder, single episode, unspecified; H54.40 Blindness, one eye, unspecified eye; D63.8 Anemia in other chronic diseases classified elsewhere; F17.200 Nicotine dependence, unspecified, uncomplicated; F11.90 Opioid use, unspecified, uncomplicated; K86.1 Other chronic pancreatitis; Z79.4 Long term (current) use of insulin; Z99.2 Dependence on renal dialysis; Z91.14 Patient's other noncompliance with medication regimen; Z90.49 Acquired absence of other specified parts of digestive tract; Z91.19 Patient's noncompliance with other medical treatment and regimen
CPT/HCPCS: 36415; 74176; 74181; 80048; 80053; 80061; 81001; 82150; 82962; 83690; 85025; 87340; 90935; 93005; 96374; 96375; J0360; J1170; J1644; J1815; J2405; J7030; J7040

== ENCOUNTER 2018-07-01 18:28 | Inpatient (IN) | payer MEDICARE, OTHER ==
[~2018-07-01] VITALS: Ht 182.9 cm; Wt 92.8 kg
[~2018-07-01 18:28] MED LIST changes: -ERGO500013 PO; +HYDR-4011 PO; -HYDR25CA98 PO
--- NOTE | 2018-07-01 20:06 | ERD ---
ER Documentation Chief Complaint Chief Complaint DIALYSIS PT, C/O L BACK PAIN, RECENTLY DC'D FOR PANCREAS RELATED PROB HPI This is a 32-year-old man complaining of left upper quadrant abdominal pain and generalized weakness, he is worried because he does have a history of pancreatitis. Patient states he underwent hemodialysis yesterday and states recently he has been compliant with his hemodialysis. He denies blood per rectum or melena, no fevers or chills, no chest pain or shortness of breath, no headache or blurry vision. ROS All systems reviewed and are negative except as per history of present illness. Medications Home Meds Active Scripts Hydrocodone/Acetaminophen ([place] 5-325 Tablet) 1 Each Tablet, 1 EACH PO Q6 for 7 Days, TAB Prov:CALLY PERKINS 06/27/18 Reported Medications Nifedipine* (Nifedipine ER*) 30 Mg Tablet.sa, 30 MG PO DAILY, TAB.SA 06/25/18 Gabapentin* (Gabapentin*) 300 Mg Capsule, 300 MG PO QHS, #60 CAP 06/25/18 Carvedilol* (Coreg*) 12.5 Mg Tablet, 12.5 MG PO BID, #60 TAB 06/25/18 Simvastatin* (Zocor*) 20 Mg Tablet, 20 MG PO QHS, #30 TAB 04/02/18 Insulin Aspart* (Novolog Insulin Pen*) 100 Unit/Ml Soln, 0 SC .SLIDING SCALE , EA 03/17/18 Insulin Glargine,Hum.rec.anlog (Basaglar Kwikpen U-100) 100 Unit/1 Ml Ins uln.pen, 15 UNIT SC QA, 03/17/18 Escitalopram Oxalate* (Lexapro*) 10 Mg Tablet, 10 MG PO DAILY, #30 TAB 12/05/17 Furosemide* (Furosemide*) 40 Mg Tablet, 40 MG PO BID, TAB 12/05/17 Calcium Acetate* (Calcium Acetate*) 667 Mg Capsule, 2001 MG PO WITH MEALS, #30 CAP 12/05/17 Discontinued Reported Medications Ergocalciferol (Vitamin D2) (VITAMIN D2) 50,000 Unit Capsule, 67919 UNIT PO Q SUN, CAP 03/17/18 Gabapentin* (Gabapentin*) 300 Mg Capsule, 300 MG PO QHS, #60 CAP 12/05/17 Discontinued Scripts Hydroxyzine Pamoate* (Hydroxyzine Pamoate*) 25 Mg Capsule, 50 MG PO BID PRN for ANXIETY for 14 Days, CAP Prov:MIKE GIFFORD MD 03/20/18 Carvedilol* (Coreg*) 12.5 Mg Tablet, 12.5 MG PO BID for 30 Days, #60 TAB Prov:MIKE GIFFORD MD 03/20/18 Nifedipine* (Nifedipine ER*) 30 Mg Tablet.sa, 30 MG PO DAILY for 30 Days, TAB.SA Prov:MIKE GIFFORD MD 03/20/18 Allergies Allergies: Coded Allergies: benazepril (Verified Allergy, Unknown, 06/25/18) PMhx/Soc Chronic pain syndrome, opioid dependence, chronic back pain, end-stage kidney disease on hemodialysis, diabetes mellitus with complications including neuropathy, retinopathy, nephropathy. Patient also has hypertension and hyperlipidemia, history of drug abuse and pancreatitis, anxiety, depression Anesthesia Reaction: No Hx Neurological Disorder: No Hx Respiratory Disorders: No Hx Cardiac Disorders: Yes (hypertension ) Hx Psychiatric Problems: Yes (anxiety, depression ) Hx Miscellaneous Medical Probl: Yes (drug abuse, etoh ) Hx Alcohol Use: Yes Hx Substance Use: Yes (marijuana ) Hx Tobacco Use: Yes Smoking Status: Former smoker FmHx Family History: No diabetes Physical Exam Vitals Vital Signs Date Temp Pulse Resp B/P (MAP) Pulse Ox O2 O2 Flow FiO2 Time Delivery Rate 07/01/18 92.7 97 20 242/143 100 18:45 (176) Physical Exam Const: mild discomfort, afebrile Resp: Clear to auscultation bilaterally Cardio: Regular rate and rhythm, no murmurs Abd: Soft, non tender, non distended. There is no guarding or rigidity, no masses palpated Skin: No petechiae or rashes Back: No midline or flank tenderness Ext: No cyanosis, or edema Neur: Awake and alert x3, no focal deficits or facial asymmetry, pupils equal round reactive to light Psych: Normal Mood and Affect Result Diagram: 07/01/18201607/01/182016 Results 24 hrs Laboratory Tests Test 07/01/18 20:17 07/01/18 22:02 White Blood Count 10.3 10^3/ul Red Blood Count 4.84 10^6/ul Hemoglobin 15.1 g/dl Hematocrit 46.2 % Mean Corpuscular Volume 95.5 fl Mean Corpuscular Hemoglobin 31.2 pg Mean Corpuscular Hemoglobin Concent 32.7 g/dl Red Cell Distribution Width 14.0 % Platelet Count 230 10^3/UL Mean Platelet Volume 13.3 fl Immature Granulocytes % 0.800 % Neutrophils % 77.7 % Lymphocytes % 12.5 % Monocytes % 5.9 % Eosinophils % 2.3 % Basophils % 0.8 % Nucleated Red Blood Cells % 0.0 /100WBC Immature Granulocytes # 0.080 10^3/ul Neutrophils # 8.0 10^3/ul Lymphocytes # 1.3 10^3/ul Monocytes # 0.6 10^3/ul Eosinophils # 0.2 10^3/ul Basophils # 0.1 10^3/ul Nucleated Red Blood Cells # 0.0 10^3/ul Sodium Level 139 mmol/L Potassium Level 6.3 mmol/L Chloride Level 95 mmol/L Carbon Dioxide Level 26 mmol/L Anion Gap 18 Blood Urea Nitrogen 45 mg/dl Creatinine 9.98 mg/dl Est Glomerular Filtrat Rate mL/min 6 mL/min Glucose Level 144 mg/dl Calcium Level 8.5 mg/dl Total Bilirubin 0.2 mg/dl Direct Bilirubin 0.00 mg/dl Indirect Bilirubin 0.2 mg/dl Aspartate Amino Transf (AST/SGOT) 59 IU/L Alanine Aminotransferase (ALT/SGPT) < 6 IU/L Alkaline Phosphatase 98 IU/L Total Protein 9.4 g/dl Albumin 5.0 g/dl Globulin 4.40 g/dl Albumin/Globulin Ratio 1.13 Lipase 261 U/L Bedside Glucose 111 mg/dL Current Medications Medications Dose Sig/[place] Start Time Status Last (Trade) Ordered Route PRN Stop Time Admin Dose Reason Admin Ketorolac 15 mg ONCE STAT 07/01/18 DC 07/01/18 Tromethamine IV 20:41 07/01/18 20:56 (Toradol) 20:43 1 tab ONCE ONCE 07/01/18 DC 07/01/18 Acetaminophen PO 21:00 07/01/18 20:57 / 21:01 Hydrocodone Bitart ([place] (5/325)) Hydralazine 20 mg ONCE ONCE 07/01/18 DC 07/01/18 HCl IV 21:00 07/01/18 20:56 (Apresoline) 21:01 Calcium 110 ml @ ONCE ONCE 4/2/19 Gluconate 1 110 mls/hr IVPB 21:30 07/01/18 gm/Dextrose 22:29 Dextrose 50 ml ONCE STAT 07/01/18 DC 07/01/18 (D50w IV 21:28 07/01/18 22:05 Syringe) 21:30 Insulin 10 unit ONCE STAT 07/01/18 DC 07/01/18 Human IVP 21:28 07/01/18 22:05 Regular 21:30 (Humulin R) Dextrose ONCE PRN 07/01/18 (D50w IV DECREASED 21:30 Syringe) GLUCOSE Procedures/MDM IV line was established patient was placed on cardiac cath lab manager rhythm strip revealed a sinus tachycardia at 110 bpm with upright P and T waves. Patient was afebrile I administered Toradol 15 mg IV x1 and Percocet 1 tablet p.o. for pain control. Patient's diastolic blood pressure was initially over 120 mmHg and I administered hydralazine 20 mg IV x1 for hypertension. EKG performed, read by me revealed a sinus tachycardia at 106 bpm, normal axis, narrow QRS complex, no concerning ST elevations or depressions noted CBC was normal, electrolytes were abnormal with a potassium of 6.3, liver function tests unremarkable For acute hyperkalemia administered dextrose 25 g IV and regular insulin 10 units IV x1. Patient's blood pressure has improved and he is no longer complaining of abdominal pain although he will be admitted to telemetry setting for hemodialysis and blood pressure control, further imaging if indicated will be deferred to admitting team. Departure Diagnosis: Primary Impression: End stage kidney disease Additional Impressions: Hypertensive emergency Acute hyperkalemia Abdominal pain Abdominal location: left upper quadrant Qualified Codes: R10.12 - Left upper quadrant pain Condition: JIMENA Wetzel MD Jul 01, 2018 20:06
[2018-07-01] MEDS ORDERED: KETOROLAC 15 MG INJ IV STA (20:41)
[2018-07-01] MEDS ORDERED: HYDROCODONE/APAP (5/325) TAB PO ONE (21:00)
[2018-07-01] MEDS ORDERED: hydrALAzine 20 MG INJ IV ONE (21:00)
[2018-07-01] MEDS ORDERED: INSULIN REGULAR, HUMAN 100 UNIT/1 ML 3ML VIAL IVP STA (21:28)
[2018-07-01] MEDS ORDERED: DEXTROSE 50% 50 ML SYRINGE IV STA (21:28)
[2018-07-01] MEDS ORDERED: CALCIUM GLUCONATE 10% 1 GM in DEXTROSE 5% 100 ML IVPB ONE (21:30)
[2018-07-01] MEDS ORDERED: DEXTROSE 50% 50 ML SYRINGE IV PRN (21:30)
[2018-07-01 22:48] VITALS: BP 212/114; PULSE 107; RESP 20
[2018-07-01 22:55] VITALS: PULSE 112
[2018-07-01 23:01] VITALS: Ht 182.9 cm; Wt 92.8 kg
[2018-07-01 23:15] VITALS: BP 197/112; PULSE 102; RESP 20
[2018-07-01] MEDS ORDERED: hydrALAzine 20 MG INJ IV PRN (23:30)
[2018-07-01] MEDS: INSULIN ASPART [NOVOLOG] 3 ML PEN SC SCH (23:30)
[2018-07-01] MEDS ORDERED: ONDANSETRON 4 MG INJ IV PRN (23:30)
[2018-07-01] MEDS ORDERED: HYDROCODONE/APAP (5/325) TAB PO PRN (23:30)
[2018-07-02] VITALS (27 sets, daily range): BP systolic 126–204; BP diastolic 81–122; PULSE 85–105; RESP 16–20
[2018-07-02] MEDS ORDERED: GLUCAGON 1 MG INJ IM PRN (00:30)
[2018-07-02] MEDS ORDERED: GLUCOSE GEL 15 GRAM TUBE BUCCAL PRN (00:30)
[2018-07-02] MEDS ORDERED: DEXTROSE 50% 50 ML SYRINGE IV PRN ×2 (00:30)
[2018-07-02] MEDS ORDERED: GLUCOSE GEL 15 GRAM TUBE PO PRN ×2 (00:30)
[2018-07-02] MEDS: FUROSEMIDE 40 MG TAB PO SCH ×3 (00:42→17:23)
[2018-07-02] MEDS: ACCU-CHEK XX SCH (02:00)
[2018-07-02] MEDS ORDERED: PANTOPRAZOLE 40 MG INJ IV SCH (06:00)
[2018-07-02] MEDS: morphine 2 MG INJ IV PRN ×3 (06:34→17:22)
[2018-07-02] MEDS ORDERED: HEPARIN 1000 UNITS/ML 10 ML INJ CATHETER ONE (07:30)
[2018-07-02] MEDS: INSULIN ASPART [NOVOLOG] 3 ML PEN SC SCH ×4 (08:13→20:36)
[2018-07-02] MEDS: CALCIUM ACETATE 667 MG CAP PO SCH ×3 (08:19→17:22)
[2018-07-02] MEDS: NIFEdipine (XL) 30 MG TAB PO SCH ×2 (08:20→12:47)
[2018-07-02] MEDS ORDERED: IOHEXOL 10 MG(I)/ML (PED) BTL PO ONE (08:30)
--- NOTE | 2018-07-02 08:44 | QN ---
Documentation Comment pt seen and examined MIKE GIFFORD MD Jul 02, 2018 08:44
[2018-07-02] MEDS ORDERED: METOCLOPRAMIDE 10 MG INJ IV PRN (09:00)
--- NOTE | 2018-07-02 09:24 | HP ---
DATE OF ADMISSION: 07/01/2018 CHIEF COMPLAINT: Abdominal pain. HISTORY OF PRESENT ILLNESS: This is a 32-year-old male with a past medical history of diabetes, hype rtension, end-stage renal disease on hemodialysis, hyperlipidemia, chronic opioid use, who presented to the emergency department complaining of epigastric left flank pain and also some nausea and vomiti ng. The patient was recently admitted to [facility] from 06/25/2018 to 06/27/2018. At that time, patient was seen for pancreatitis. The patient is status post cholecystectomy. The patient was seen by Dr. Duong and the patient was started on pain control, given IV fluids and lipas e was normalized and the patient was discharged home in stable condition. However, according to the patient since he went home, he started having again left upper quadrant and back pain. The patient h as been throwing up multiple times. He denied any hematemesis, any melena, any bright blood per rect um. According to the patient, he had been going to his dialysis. His last dialysis was on Saturday. On arrival to ED, blood pressure was 242/143. Labs showed potassium of 6.3, BUN of 45, creatinine 9. 98, AST 59, alkaline phosphatase 98. The patient was admitted for further management. The patient r eceived ketorolac, Vicodin, hydralazine and was admitted for further management. PAST MEDICAL HISTORY: 1. Hypertension. 2. End-stage renal disease on hemodialysis for past few months Saturday, and Saturday. 3. Diabetes with complications of diabetic neuropathy, retinopathy and nephropathy. 4. Hyperlipidemia. 5. History of drug use. 6. History of pancreatitis. 7. History of gallstones, status post cholecystectomy. 8. 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 The patient's right eye has been losing vi john. ALLERGIES: PENICILLIN. PAST SURGICAL HISTORY: Appendectomy and multiple eye surgeries for diabetic retinopathy, cholecystec edison. FAMILY HISTORY: Significant for diabetes. SOCIAL HISTORY: Lives with the family. He denies any alcohol or recreational drug use. MEDICATIONS: At home, patient states that he takes two blood pressure medicines, have not been sure if it is compliant or not. According to the [facility] the patient has been on; 1. Coreg. 2. Procardia. 3. Lexapro. 4. Gabapentin. 5. [place]. 6. Lasix 40 mg b.i.d. 7. Calcium acetate with meals. REVIEW OF SYSTEMS: The patient complained of left upper flank pain and left upper abdominal pain, corral s been having episodes of nausea and vomiting. He denied any diarrhea. He complained of some chills . He denied any hematemesis, any melena, any bright red rectum. He denies any focal neurological de ficits. PHYSICAL EXAMINATION: VITAL SIGNS: Currently blood pressure is 176/107, afebrile, heart rate 94, respirations 18. GENERAL: The patient is awake, alert, oriented, does not appear to be in any acute distress. HEENT: Pupils are equal, round, and reactive to light. NECK: Supple. HEART: Regular rate and rhythm. LUNGS: Clear to auscultate bilaterally. ABDOMEN: The patient has tenderness present in the left flank and the left upper abdominal area. Po sitive bowel sounds. EXTREMITIES: No clubbing, cyanosis, or edema. The patient has a right-sided Perm-A-Cath in place. DIAGNOSTIC DATA: White count 10.3, hemoglobin 15.1, platelet count 230, potassium 6.3, BUN of 45, cr eatinine 9.98, AST 56, ALT 6, lipase 261. The patient had ordered a CAT scan that was done on 2018 that showed moderate stool burden. No calcified urinary calculi, obstructive uropathy status po st prior cholecystectomy. ASSESSMENT: 1. This is a 32-year-old male who repeatedly comes in with a left upper quadrant pain, back pain rad iating in the front need to rule out for any kidney stone. The patient had episodes of nausea and vo miting. Also, a CAT scan on 06/25/2018 was negative. Lipase is normal currently. 2. Hyperkalemia, not sure if patient is compliant with his dialysis as well as with diet. 3. Hypertensive urgency/emergency secondary to not taking any of his medications noncompliance. 4. End-stage renal disease on hemodialysis. 5. Hypertension. 6. Hyperlipidemia. 7. Diabetes. 8. History of gallstones, status post cholecystectomy. 9. History of pancreatitis. PLAN: 1. At this period of time, the patient will be admitted to telemetry. The patient will receive stat hemodialysis for hyperkalemia. The patient will be continued on nifedipine, calcium acetate, Proton ix, hydralazine, Coreg. 2. We will put the patient on a full liquid diet. CT of the abdomen and pelvis is ordered. We will also get an abdominal x-ray. Dr. Duong will be called again. The rest of the treatment will depen d on the patient's hospitalization course. Dictated By: MIKE BIGGS/VIKTORIYA Conf#: [id number] DID#: [id number] CC: MIKE GIFFORD;*EndCC*
[2018-07-02] MEDS: INSULIN GLARGINE [LANTus] (100 UNITS/ML) SYG SC SCH (10:46)
[2018-07-02] MEDS: HEPARIN 5,000 UNIT/1 ML VIAL SC SCH ×2 (10:46→20:32)
[2018-07-02] MEDS ORDERED: BARIUM SULF 2% 450 ML BTL (BERRY SMOOTHIE) PO ONE (11:00)
[2018-07-02] MEDS ORDERED: IOHEXOL 14.3 MG(I)/ML (ADULT) BTL PO ONE (11:00)
[2018-07-02] MEDS: PANTOPRAZOLE 40 MG INJ IV SCH (17:22)
[2018-07-02] MEDS ORDERED: ATORVASTATIN 10 MG TAB PO SCH (21:00)
[2018-07-02] MEDS ORDERED: GABAPENTIN 300 MG CAP PO SCH (21:00)
[2018-07-02] MEDS: METOCLOPRAMIDE 10 MG INJ IV SCH (22:30)
[2018-07-03] VITALS (25 sets, daily range): BP systolic 133–178; BP diastolic 73–111; PULSE 79–99; RESP 18–20
--- NOTE | 2018-07-03 01:32 | CONS ---
DATE OF ADMISSION: 07/01/2018 DATE OF CONSULTATION: HISTORY OF PRESENT ILLNESS: A 32-year-old male with a history of hypertension, end-stage renal disea se, hyperlipidemia, chronic opioid use, comes to the hospital complaining of epigastric pain, flank p ain and nausea and vomiting. The patient was evaluated in the ER, had a CAT scan done which showed p erinephric fatty strand, otherwise grossly it was negative. No chest pain, no shortness of breath, n o GI bleeding. PAST MEDICAL HISTORY: Left eye blindness, pancreatitis, gallstone, drug use, hyperlipidemia, diabete s mellitus, end-stage renal disease, hypertension. ALLERGIES: PENICILLIN. PAST SURGICAL HISTORY: Appendicectomy, diabetic retinopathy. MEDICATIONS: All reviewed. FAMILY HISTORY: Significant for diabetes. SOCIAL HISTORY: Lives with the family. No alcohol, no IV drug abuse. REVIEW OF SYSTEMS: Nothing additional than what has been described. PHYSICAL EXAMINATION GENERAL: Well-built, nourished, not in distress. VITAL SIGNS: Stable. HEENT: Unremarkable. NECK: Supple, no thyromegaly, no lymphadenopathy. CARDIOVASCULAR: No murmur, gallop or click. LUNGS: Clear. ABDOMEN: Soft. Mild tenderness in epigastric area. Bowel sounds good. No mass felt per abdomen. EXTREMITIES: No edema. CENTRAL NERVOUS SYSTEM: Grossly within normal limit. IMPRESSION: 1. Epigastric pain and flank pain associated with nausea and vomiting, most probably related to angela roparesis, rule out gastritis. 2. End-stage renal disease. 3. Hypertension. 4. Hyperlipidemia. 5. Diabetes mellitus. 6. History of pancreatitis. PLAN: Continue present care. Continue PPI. We will add Reglan to the present regimen. If despite that he continues to have the pain, then we will do EGD. Dictated By: MAXIMO QUIROZ/VIKTORIYA Conf#: [id number] DID#: [id number] CC: MIKE GIFFORD;*EndCC*
[2018-07-03] MEDS: morphine 2 MG INJ IV PRN ×3 (01:42→13:19)
[2018-07-03] MEDS: ACCU-CHEK XX SCH (01:46)
[2018-07-03] MEDS: FUROSEMIDE 40 MG TAB PO SCH ×2 (05:19→17:39)
[2018-07-03] MEDS: PANTOPRAZOLE 40 MG INJ IV SCH ×2 (05:19→17:36)
[2018-07-03] MEDS: METOCLOPRAMIDE 10 MG INJ IV SCH ×2 (05:19→13:21)
[2018-07-03] MEDS: INSULIN ASPART [NOVOLOG] 3 ML PEN SC SCH ×3 (07:37→17:10)
[2018-07-03] MEDS: INSULIN GLARGINE [LANTus] (100 UNITS/ML) SYG SC SCH (07:44)
[2018-07-03] MEDS: NIFEdipine (XL) 30 MG TAB PO SCH (08:39)
[2018-07-03] MEDS: CALCIUM ACETATE 667 MG CAP PO SCH ×3 (08:39→17:34)
[2018-07-03] MEDS: HEPARIN 5,000 UNIT/1 ML VIAL SC SCH (08:40)
--- NOTE | 2018-07-03 09:47 | PN ---
Date/Time of Note Date/Time of Note DATE: 07/03/18 TIME: 09:47 Assessment/Plan VTE Prophylaxis Risk score (from Ns)>0 risk: 1 SCD applied (from [facility]): No SCD contraindicated: low risk/ambulating Pharmacological prophylaxis: NA/contraindicated Pharm contraindication: low risk/ambulating Lines/Catheters IV Catheter Type (from [place]): Saline Lock Urinary Cath still in place: No Assessment/Plan Hospital Course This is a 32-year-old male 1 left upper quadrant pain, back pain radiating in the front need to rule out for any kidney stone. The patient had episodes of nausea and vomiting. Also, a CAT scan on 06/25/2018 was negative. Lipase is normal currently. 2. Hyperkalemia, not sure if patient is compliant with his dialysis as well as with diet. 3. Hypertensive urgency/emergency secondary to not taking any of his medications noncompliance. 4. End-stage renal disease on hemodialysis. 5. Hypertension. 6. Hyperlipidemia. 7. Diabetes. 8. History of gallstones, status post cholecystectomy. 9. History of pancreatitis. Plan - CT A+P neg some perinephric stranding 1. Mild bilateral perinephric fat stranding, nonspecific and may be acute or chronic, seen on 06/25/2018 CT abdomen/pelvis exam. In the acute setting, this may reflect infection. Please correlate. - Will give abx for Urinary infection - pain resolved, tolerating diet - dc home if ok with GI Result Diagram: 07/02/18 1040 07/03/18 0600 Results 24hrs Laboratory Tests Test 07/02/18 10:40 07/02/18 10:41 07/02/18 11:37 07/02/18 17:14 White Blood Count 6.9 # Red Blood Count 4.37 L Hemoglobin 13.6 L Hematocrit 42.1 Mean Corpuscular Volume 96.3 Mean Corpuscular 31.1 Hemoglobin Mean Corpuscular 32.3 Hemoglobin Concent Red Cell Distribution 14.1 Width Platelet Count 236 Mean Platelet Volume 13.0 H Immature Granulocytes % 0.400 Neutrophils % 72.1 Lymphocytes % 15.2 Monocytes % 9.4 Eosinophils % 1.9 Basophils % 1.0 Nucleated Red Blood 0.0 Cells % Immature Granulocytes # 0.030 Neutrophils # 5.0 Lymphocytes # 1.1 Monocytes # 0.7 Eosinophils # 0.1 Basophils # 0.1 Nucleated Red Blood 0.0 Cells # Sodium Level 141 Potassium Level 5.1 Chloride Level 97 Carbon Dioxide Level 30 Anion Gap 14 H Blood Urea Nitrogen 26 #H Creatinine 7.18 #H Est Glomerular Filtrat 9 L Rate mL/min Glucose Level 224 H Calcium Level 9.3 Total Bilirubin 0.2 Direct Bilirubin 0.00 Indirect Bilirubin 0.2 Aspartate Amino 26 # Transf (AST/SGOT) Alanine 13 Aminotransferase (ALT/SG PT) Alkaline Phosphatase 95 Total Protein 8.3 H Albumin 4.5 Globulin 3.80 H Albumin/Globulin Ratio 1.18 Bedside Glucose 215 227 H 108 Test 07/02/18 20:28 07/03/18 06:00 07/03/18 07:34 Bedside Glucose 120 152 Sodium Level 137 Potassium Level 4.9 Chloride Level 97 Carbon Dioxide Level 26 Anion Gap 14 H Blood Urea Nitrogen 38 #H Creatinine 9.61 #H Est Glomerular Filtrat 6 L Rate mL/min Glucose Level 170 Calcium Level 8.9 Total Bilirubin 0.2 Direct Bilirubin 0.00 Indirect Bilirubin 0.2 Aspartate Amino 19 Transf (AST/SGOT) Alanine 11 L Aminotransferase (ALT/SG PT) Alkaline Phosphatase 75 Total Protein 7.6 Albumin 4.1 Globulin 3.50 H Albumin/Globulin Ratio 1.17 Subjective 24 Hr Interval Summary Free Text/Dictation Feels better today Pain is gone Exam/Review of Systems Exam Vitals Vital Signs Date Temp Pulse Resp B/P (MAP) Pulse Ox O2 O2 Flow FiO2 Time Delivery Rate 07/03/18 97.5 88 20 166/92 95 07:41 (116) 88 07/03/18 Room Air 03:41 Intake and Output 07/02/18 07/02/18 07/03/18 1515:00 23:00 07:00 IntakeIntake Total 700 ml OutputOutput Total 3200 ml 600 ml BalanceBalance -3200 ml 100 ml Exam GENERAL: The patient is awake, alert, oriented, does not appear to be in any acute distress. HEENT: Pupils are equal, round, and reactive to light. NECK: Supple. HEART: Regular rate and rhythm. LUNGS: Clear to auscultate bilaterally. ABDOMEN: The patient has tenderness present in the left flank and the left upper abdominal area. Positive bowel sounds. EXTREMITIES: No clubbing, cyanosis, or edema. The patient has a right-sided Perm-A-Cath in place. Results Results 24hrs Laboratory Tests Test 07/02/18 10:40 07/02/18 10:41 07/02/18 11:37 07/02/18 17:14 White Blood Count 6.9 # Red Blood Count 4.37 L Hemoglobin 13.6 L Hematocrit 42.1 Mean Corpuscular Volume 96.3 Mean Corpuscular 31.1 Hemoglobin Mean Corpuscular 32.3 Hemoglobin Concent Red Cell Distribution 14.1 Width Platelet Count 236 Mean Platelet Volume 13.0 H Immature Granulocytes % 0.400 Neutrophils % 72.1 Lymphocytes % 15.2 Monocytes % 9.4 Eosinophils % 1.9 Basophils % 1.0 Nucleated Red Blood 0.0 Cells % Immature Granulocytes # 0.030 Neutrophils # 5.0 Lymphocytes # 1.1 Monocytes # 0.7 Eosinophils # 0.1 Basophils # 0.1 Nucleated Red Blood 0.0 Cells # Sodium Level 141 Potassium Level 5.1 Chloride Level 97 Carbon Dioxide Level 30 Anion Gap 14 H Blood Urea Nitrogen 26 #H Creatinine 7.18 #H Est Glomerular Filtrat 9 L Rate mL/min Glucose Level 224 H Calcium Level 9.3 Total Bilirubin 0.2 Direct Bilirubin 0.00 Indirect Bilirubin 0.2 Aspartate Amino 26 # Transf (AST/SGOT) Alanine 13 Aminotransferase (ALT/SG PT) Alkaline Phosphatase 95 Total Protein 8.3 H Albumin 4.5 Globulin 3.80 H Albumin/Globulin Ratio 1.18 Bedside Glucose 215 227 H 108 Test 07/02/18 20:28 07/03/18 06:00 07/03/18 07:34 Bedside Glucose 120 152 Sodium Level 137 Potassium Level 4.9 Chloride Level 97 Carbon Dioxide Level 26 Anion Gap 14 H Blood Urea Nitrogen 38 #H Creatinine 9.61 #H Est Glomerular Filtrat 6 L Rate mL/min Glucose Level 170 Calcium Level 8.9 Total Bilirubin 0.2 Direct Bilirubin 0.00 Indirect Bilirubin 0.2 Aspartate Amino 19 Transf (AST/SGOT) Alanine 11 L Aminotransferase (ALT/SG PT) Alkaline Phosphatase 75 Total Protein 7.6 Albumin 4.1 Globulin 3.50 H Albumin/Globulin Ratio 1.17 Medications Medication Current Medications Dextrose (D50w Syringe) ONCE PRN IV DECREASED GLUCOSE; Start 07/01/18 at 21:30 Hydralazine HCl (Apresoline) 10 mg Q6H PRN IV ELEVATED BLOOD PRESSURE Last administered on 07/02/18 20:22; Admin Dose 10 MG; Start 07/01/18 at 23:30 Morphine Sulfate (morphine) 2 mg Q4H PRN IV PAIN LEVEL 6-10 Last administered on 07/03/18 07:41; Admin Dose 2 MG; Start 07/01/18 at 23:30 Acetaminophen/ Hydrocodone Bitart ([place] (5/325)) 1 tab Q4H PRN PO PAIN LEVEL 1-5; Start 07/01/18 at 23:30 Heparin Sodium (Porcine) (Heparin (5000 Units/1ml)) 5,000 unit Q12 SC Last a dministered on 07/03/18 08:40; Admin Dose 5,000 UNIT; Start 07/02/18 at 09:00 Ondansetron HCl (Zofran Inj) 4 mg Q6H PRN IV NAUSEA AND/OR VOMITING Last administered on 07/02/18 18:07; Admin Dose 4 MG; Start 07/01/18 at 23:30 Calcium Acetate (Phoslo) 2,001 mg WITH MEALS PO Last administered on 07/03/18 08:39; Admin Dose 2,001 MG; Start 07/02/18 at 07:55 Carvedilol (Coreg) 12.5 mg BID PO Last administered on 07/03/18 08:39; Admin Dose 12.5 MG; Start 07/01/18 at 23:30 Furosemide (Lasix) 40 mg BID DIURETICS PO Last administered on 07/03/18 05:19; Admin Dose 40 MG; Start 07/01/18 at 23:30 Gabapentin (Neurontin) 300 mg QHS PO Last administered on 07/02/18 20:21; Admin Dose 300 MG; Start 07/02/18 at 21:00 Insulin Glargine (Lantus) 15 units QAM SC Last administered on 07/03/18 07:44; Admin Dose 15 UNITS; Start 07/02/18 at 09:00 Nifedipine (Procardia Xl) 30 mg DAILY PO Last administered on 07/03/18 08:39; Admin Dose 30 MG; Start 07/02/18 at 09:00 Atorvastatin Calcium (Lipitor) 10 mg DAILY@21 PO Last administered on 07/02/18 20:22; Admin Dose 10 MG; Start 07/02/18 at 21:00 Diagnostic Test (Pha) (Accu-Chek) 1 ea 02 XX ; Start 07/02/18 at 02:00 Insulin Aspart (Novolog Insulin Pen) NOVOLOG *MILD* ALGORITHM WITH MEALS BEDTIME SC Last administered on 07/03/18at 07:37; Admin Dose 1 UNIT; Start at 23:30 Miscellaneous Information 1 ea NOTE XX ; Start 07/02/18 at 00:30 Glucose (Glutose) 15 gm Q15M PRN PO DECREASED GLUCOSE; Start 07/02/18 at 00:30 Glucose (Glutose) 22.5 gm Q15M PRN PO DECREASED GLUCOSE; Start 07/02/18 at 00:30 Dextrose (D50w Syringe) 25 ml Q15M PRN IV DECREASED GLUCOSE; Start 07/02/18 at 00:30 Dextrose (D50w Syringe) 50 ml Q15M PRN IV DECREASED GLUCOSE; Start 07/02/18 at 00:30 Glucagon (Glucagen) 1 mg Q15M PRN IM DECREASED GLUCOSE; Start 07/02/18 at 00:30 Glucose (Glutose) 15 gm Q15M PRN BUCCAL DECREASED GLUCOSE; Start 07/02/18 at 00:30 Metoclopramide HCl (Reglan) 10 mg Q6 PRN IV VOMITTING; Start 07/02/18 at 09:00 Pantoprazole (Protonix Iv) 40 mg BID@06,18 IV Last administered on 07/03/18at 05:19; Admin Dose 40 MG; Start 07/02/18 at 18:00 Metoclopramide HCl (Reglan) 5 mg Q8 IV Last administered on 07/03/18at 05:19; Admin Dose 5 MG; Start 07/02/18 at 22:00 MIKE GIFFORD MD Jul 03, 2018 09:47
[2018-07-03] MEDS ORDERED: CEFTRIAXONE 1 GM/50 ML (PMX) 50 ML IVPB ONE (10:00)
[2018-07-03] MEDS ORDERED: HEPARIN 1000 UNITS/ML 10 ML INJ CATHETER SCH (10:00)
--- NOTE | 2018-07-03 12:14 | CONS ---
Assessment/Plan Assessment/Plan Assessment/Plan (Daily) IMPRESSION: 1. Epigastric pain and flank pain associated with nausea and vomiting, most probably related to gastroparesis, rule out gastritis. 2. End-stage renal disease. 3. Hypertension. 4. Hyperlipidemia. 5. Diabetes mellitus. 6. History of pancreatitis Plan Continue PPI and Reglan Staff told me patient is going home today Consultation Date/Type/Reason Admit Date/Time Jul 01, 2018 at 21:38 Initial Consult Date Date/Time of Note DATE: 07/03/18 TIME: 12:13 24 HR Interval Summary Constitutional: no complaints, improved Exam/Review of Systems Exam Vitals Vital Signs Date Temp Pulse Resp B/P (MAP) Pulse Ox O2 O2 Flow FiO2 Time Delivery Rate 07/03/18 98.3 93 20 171/111 98 11:21 (131) 07/03/18 Room Air 03:41 Intake and Output 07/02/18 07/02/18 07/03/18 1515:00 23:00 07:00 IntakeIntake Total 700 ml OutputOutput Total 3200 ml 600 ml BalanceBalance -3200 ml 100 ml Constitutional: alert, oriented, well developed Psych: no complaints, nl mood/affect Head: normocephalic, atraumatic Eyes: nl conjunctiva, EOMI, nl lids, nl sclera, PERRL ENMT: nl external ears & nose, nl lips & teeth, nl nasal mucosa & septum Neck: supple, non-tender Respiratory: clear to auscultation, normal air movement Cardiovascular: regular rate and rhythm, nl pulses Gastrointestinal: soft, nl liver, spleen, non-tender Musculoskeletal: nl extremities to inspection, nl gait and stance Extremities: normal pulses Neurological: SOAKER HELPER II-XII intact, nl mental status, nl speech, nl strength Skin: nl turgor; No rash or lesions Lymph: nl lymph nodes Results Result Diagram: 07/02/18 1040 07/03/18 0600 Results 24hrs Laboratory Tests Test 07/02/18 17:14 07/02/18 20:28 07/03/18 06:00 07/03/18 07:34 Bedside Glucose 108 120 152 Sodium Level 137 Potassium Level 4.9 Chloride Level 97 Carbon Dioxide Level 26 Anion Gap 14 H Blood Urea Nitrogen 38 #H Creatinine 9.61 #H Est Glomerular Filtrat 6 L Rate mL/min Glucose Level 170 Calcium Level 8.9 Total Bilirubin 0.2 Direct Bilirubin 0.00 Indirect Bilirubin 0.2 Aspartate Amino 19 Transf (AST/SGOT) Alanine 11 L Aminotransferase (ALT/SG PT) Alkaline Phosphatase 75 Total Protein 7.6 Albumin 4.1 Globulin 3.50 H Albumin/Globulin Ratio 1.17 Test 07/03/18 11:12 Bedside Glucose 153 Medications Medication Current Medications Dextrose (D50w Syringe) ONCE PRN IV DECREASED GLUCOSE; Start 07/01/18 at 21:30 Hydralazine HCl (Apresoline) 10 mg Q6H PRN IV ELEVATED BLOOD PRESSURE Last administered on 07/02/18 20:22; Admin Dose 10 MG; Start 07/01/18 at 23:30 Morphine Sulfate (morphine) 2 mg Q4H PRN IV PAIN LEVEL 6-10 Last administered on 07/03/18 07:41; Admin Dose 2 MG; Start 07/01/18 at 23:30 Acetaminophen/ Hydrocodone Bitart ([place] (5/325)) 1 tab Q4H PRN PO PAIN LEVEL 1-5; Start 07/01/18 at 23:30 Heparin Sodium (Porcine) (Heparin (5000 Units/1ml)) 5,000 unit Q12 SC Last adm inistered on 07/03/18 08:40; Admin Dose 5,000 UNIT; Start 07/02/18 at 09:00 Ondansetron HCl (Zofran Inj) 4 mg Q6H PRN IV NAUSEA AND/OR VOMITING Last administered on 07/02/18 18:07; Admin Dose 4 MG; Start 07/01/18 at 23:30 Calcium Acetate (Phoslo) 2,001 mg WITH MEALS PO Last administered on 07/03/18 11:23; Admin Dose 2,001 MG; Start 07/02/18 at 07:55 Carvedilol (Coreg) 12.5 mg BID PO Last administered on 07/03/18 08:39; Admin Dose 12.5 MG; Start 07/01/18 at 23:30 Furosemide (Lasix) 40 mg BID DIURETICS PO Last administered on 07/03/18 05:19; Admin Dose 40 MG; Start 07/01/18 at 23:30 Gabapentin (Neurontin) 300 mg QHS PO Last administered on 07/02/18 20:21; Admin Dose 300 MG; Start 07/02/18 at 21:00 Insulin Glargine (Lantus) 15 units QAM SC Last administered on 07/03/18 07:44; Admin Dose 15 UNITS; Start 07/02/18 at 09:00 Nifedipine (Procardia Xl) 30 mg DAILY PO Last administered on 07/03/18 08:39; Admin Dose 30 MG; Start 07/02/18 at 09:00 Atorvastatin Calcium (Lipitor) 10 mg DAILY@21 PO Last administered on 07/02/18 20:22; Admin Dose 10 MG; Start 07/02/18 at 21:00 Diagnostic Test (Pha) (Accu-Chek) 1 ea 02 XX ; Start 07/02/18 at 02:00 Insulin Aspart (Novolog Insulin Pen) NOVOLOG *MILD* ALGORITHM WITH MEALS BEDTIME SC Last administered on 07/03/18 11:16; Admin Dose 1 UNIT; Start 07/01 at 23:30 Miscellaneous Information 1 ea NOTE XX ; Start 07/02/18 at 00:30 Glucose (Glutose) 15 gm Q15M PRN PO DECREASED GLUCOSE; Start 07/02/18 at 00:30 Glucose (Glutose) 22.5 gm Q15M PRN PO DECREASED GLUCOSE; Start 07/02/18 at 00:30 Dextrose (D50w Syringe) 25 ml Q15M PRN IV DECREASED GLUCOSE; Start 07/02/18 at 00:30 Dextrose (D50w Syringe) 50 ml Q15M PRN IV DECREASED GLUCOSE; Start 07/02/18 at 00:30 Glucagon (Glucagen) 1 mg Q15M PRN IM DECREASED GLUCOSE; Start 07/02/18 at 00:30 Glucose (Glutose) 15 gm Q15M PRN BUCCAL DECREASED GLUCOSE; Start 07/02/18 at 00:30 Metoclopramide HCl (Reglan) 10 mg Q6 PRN IV VOMITTING Last administered on 07/03/18 11:21; Admin Dose 10 MG; Start 07/02/18 at 09:00 Pantoprazole (Protonix Iv) 40 mg BID@06,18 IV Last administered on 07/03/18 05:19; Admin Dose 40 MG; Start 07/02/18 at 18:00 Metoclopramide HCl (Reglan) 5 mg Q8 IV Last administered on 4/4/19at 05:19; Admin Dose 5 MG; Start 07/02/18 at 22:00 Heparin Sodium (Porcine) (Heparin (1000 Units/ml)) 4,000 unit AFTER DIALYSIS CATHETER ; Start 07/03/18 at 10:00 MAXIMO KUHN MD Jul 03, 2018 12:14
--- NOTE | 2018-07-03 15:49 | PDOCDIS ---
Discharge Instructions DIAGNOSIS Discharge Diagnosis GASTRITIS UTI CONDITION [id number] Patient Condition: [id number] Fair HOME CARE INSTRUCTIONS: [id number] Special Diet: Krfir4a RENAL DIET ACTIVITY: [id number] Activity Restrictions: Temkd1x Slowly Increase Activity Rest between Activity Avoid heavy lifting FOLLOW UP/APPOINTMENTS Follow-up Plan F/U HD TTS F/U pcp in 1 week MIKE GIFFORD MD Jul 03, 2018 15:49
[2018-07-03] MEDS ORDERED: CIPR-193 PO (15:51)
[2018-07-03] MEDS ORDERED: PANT40TA3 PO (15:51)
--- NOTE | 2018-07-03 17:55 | DS ---
DATE OF ADMISSION: 07/01/2018 DATE OF DISCHARGE: 07/03/2018 HISTORY OF PRESENTING ILLNESS AND HOSPITAL COURSE: This is a 32-year-old male with a past medical hi story of diabetes, hypertension, end-stage renal disease on hemodialysis, hyperlipidemia, chronic opi oid use, presented to the emergency department with epigastric left pain, some nausea and vomiting. The patient was recently admitted with the same symptoms. During the hospitalization, his blood pres sure was very elevated to 242/143. Labs showed potassium of 6.3, BUN of 45, creatinine 9.98. Alkali ne phosphatase was 98. The patient was admitted to telemetry floor. The patient's lipase was done w hich was normal. Had a CT of the abdomen and pelvis again which showed some mild bilateral perinephr ic stranding which was nonspecific. The patient was seen by GI consultation with Dr. Duong and the recommendations were followed. The patient was, however, feeling better the next day. Abdominal louie n had improved. The patient also received a second session of dialysis. Blood pressure improved. T he patient was put on home medications which he tolerated well. The patient also had an abdominal x- ray. There were no calcifications over underlying tracts. Per GI, the patient is stable to be disch arged home. FINAL DISCHARGE DIAGNOSES: 1. Left upper quadrant pain. CT of the abdomen and pelvis with some nonspecific mild bilateral lang nephric stranding. Lipase is normal. Pain resolved. He could also have an underlying gastritis. 2. Hyperkalemia. The patient is noncompliant. 3. Hypertensive urgency/emergency. The patient is noncompliant. 4. End-stage renal disease on hemodialysis. 5. Hypertension. 6. Hyperlipidemia. 7. Diabetes. 8. History of gallstones. 9. History of pancreatitis. DISCHARGE DIET: Renal diet. DISCHARGE MEDICATIONS: 1. Cipro 250 p.o. daily for 3 days. 2. Pantoprazole 40. 3. Calcium acetate. 4. Coreg 12.5 b.i.d. 5. Lasix 40 b.i.d. 6. Gabapentin 300 at bedtime. 7. [place] p.r.n. 8. Insulin 15 q.a.m. 9. Nifedipine 30 daily. 10. Zocor 20 mg at bedtime. DISCHARGE INSTRUCTIONS: The patient was instructed to follow up with hemodialysis Saturday, and Saturday and be compliant with the diet. The patient was instructed to return to the ER for ches t pain, shortness of breath and abdominal pain. Dictated By: MIKE BIGGS/VIKTORIYA Conf#: [id number] DID#: [id number]
== END 2018-07-03 18:25 | disposition home or self-care (01) | DRG 73 ==
LOC: E/R 18:28 → TEL 21:38
PROVIDERS: ADMIT Internal Medicine; ATTEND Internal Medicine
PROC: 5A1D70Z Performance of Urinary Filtration, Intermittent, Less than 6 Hours Per Day (ICD-10-PCS; principal; 2018-07-02)
PROC: 5A1D70Z Performance of Urinary Filtration, Intermittent, Less than 6 Hours Per Day (ICD-10-PCS; 2018-07-02)
DX: E11.43 Type 2 diabetes mellitus with diabetic autonomic (poly)neuropathy (principal); N18.6 End stage renal disease; I12.0 Hypertensive chronic kidney disease with stage 5 chronic kidney disease or end stage renal disease; I16.1 Hypertensive emergency; R10.12 Left upper quadrant pain; E11.21 Type 2 diabetes mellitus with diabetic nephropathy; E11.22 Type 2 diabetes mellitus with diabetic chronic kidney disease; E11.65 Type 2 diabetes mellitus with hyperglycemia; E87.5 Hyperkalemia; E11.319 Type 2 diabetes mellitus with unspecified diabetic retinopathy without macular edema; K31.84 Gastroparesis; F41.9 Anxiety disorder, unspecified; F32.9 Major depressive disorder, single episode, unspecified; E78.5 Hyperlipidemia, unspecified; F11.10 Opioid abuse, uncomplicated; I16.0 Hypertensive urgency; R11.2 Nausea with vomiting, unspecified; Z79.4 Long term (current) use of insulin; Z99.2 Dependence on renal dialysis; Z91.14 Patient's other noncompliance with medication regimen; Z87.891 Personal history of nicotine dependence; Z90.49 Acquired absence of other specified parts of digestive tract
CPT/HCPCS: 36415; 71250; 74018; 74176; 80053; 82962; 83690; 85025; 87081; 90935; 93005; 96374; 96375; C9113; J0360; J0610; J0696; J1644; J1815; J1885; J2270; J2405; J2765; Q9967

== ENCOUNTER 2018-07-10 05:45 | Inpatient (IN) | payer MEDICARE, OTHER ==
[2018-07-10] VITALS (18 sets, daily range): BP systolic 160–199; BP diastolic 86–119; PULSE 86–100; RESP 16–20; Ht 182.9 cm; Wt 67.4 kg
[~2018-07-10] VITALS: Ht 182.9 cm; Wt 67.4 kg
[~2018-07-10 05:45] MED LIST changes: +CIPR-193 PO; -ESCI10TA PO; +PANT40TA3 PO
[2018-07-10] MEDS ORDERED: SOD CHLORIDE 0.9% 1,000 ML IV STA (06:45)
[2018-07-10] MEDS ORDERED: ONDANSETRON 4 MG INJ IV STA ×2 (06:45→07:21)
[2018-07-10] MEDS ORDERED: morphine 4 MG/ML VIAL IV STA (06:45)
[2018-07-10] MEDS ORDERED: HYDROmorphONE 1 MG/ML SYG IV STA (07:21)
--- NOTE | 2018-07-10 07:28 | ERD ---
ER Documentation Chief Complaint Chief Complaint left flank pain x 1 day, states due for dialysis today HPI This is a 32-year-old male with history of end-stage renal disease on hemodialysis every Saturday and Saturday. The patient indicated he was able to go to dialysis this morning but was unable to due to the severe ab dominal pain. Indicates that for the past 24 hours he has been experiencing epigastric pain that radiates to the left upper quadrant. He states the pain is 10 out of 10 in intensity. On June 25, 2018 roughly 2 weeks ago the patient had been admitted to the hospital for pancreatitis. He denies alcohol use. Indicates the pain is similar to his previous pancreatic pain. He felt nauseous but has not experienced any emesis. The patient does not make urine. He denies any chest pain. He has no shortness of breath at rest or exertion. He states the pain is exacerbated whenever he attempts to eat food or when he leans forward. He did not take any analgesic medication at home. His last full run of dialysis was 2 days ago and his joint cleaning machine operator is Dr. Franklin. He denies any fevers or shaking or chills. ROS All systems reviewed and are negative except as per history of present illness. Medications Home Meds Reported Medications Ergocalciferol (Vitamin D2) (VITAMIN D2) 50,000 Unit Capsule, 33813 UNIT PO Q7D, CAP 07/10/18 Escitalopram Oxalate* (Escitalopram Oxalate*) 10 Mg Tablet, 10 MG PO DAILY, #30 TAB 07/10/18 Nifedipine* (Nifedipine ER*) 30 Mg Tablet.sa, 30 MG PO DAILY, TAB.SA 06/25/18 Gabapentin* (Gabapentin*) 300 Mg Capsule, 300 MG PO QHS, #60 CAP 06/25/18 Carvedilol* (Coreg*) 12.5 Mg Tablet, 12.5 MG PO BID, #60 TAB 06/25/18 Simvastatin* (Zocor*) 20 Mg Tablet, 20 MG PO QHS, #30 TAB 04/02/18 Furosemide* (Furosemide*) 40 Mg Tablet, 40 MG PO BID, TAB 12/05/17 Calcium Acetate* (Calcium Acetate*) 667 Mg Capsule, 2001 MG PO WITH MEALS, #30 CAP 12/05/17 Discontinued Reported Medications Insulin Aspart* (Novolog Insulin Pen*) 100 Unit/Ml Soln, 0 SC .SLIDING SCALE AC, EA 12/17/18 Insulin Glargine,Hum.rec.anlog (Basaglar Kwikpen U-100) 100 Unit/1 Ml Insuln.pen, 15 UNIT SC QACarmella, DIONTE 03/17/18 Discontinued Scripts Ciprofloxacin Hcl* (Ciprofloxacin Hcl*) 250 Mg Tablet, 250 MG PO DAILY for 3 Days, #14 TAB Prov:MIKE GIFFORD MD 07/03/18 Pantoprazole* (Protonix*) 40 Mg Tablet.dr, 40 MG PO DAILY for 30 Days, TAB Prov:MIKE GIFFORD MD 07/03/18 Hydrocodone/Acetaminophen ([place] 5-325 Tablet) 1 Each Tablet, 1 EACH PO Q6 for 7 Days, TAB Prov:CALLY PERKINS 06/27/18 Allergies Allergies: Coded Allergies: benazepril (Verified Allergy, Unknown, 07/10/18) PMhx/Soc History of Surgery: Yes (Cholecystectomy, Appendectomy, Left eye X4, Right eye X3, HD catheter) Anesthesia Reaction: No Hx Neurological Disorder: No Hx Respiratory Disorders: No Hx Cardiac Disorders: Yes (HTN) Hx Psychiatric Problems: Yes (Depression, Anxiety) Hx Miscellaneous Medical Probl: Yes (Diabetic retinopathy.) Hx Alcohol Use: No Hx Substance Use: Yes (Marijuana (daily), Crystal meth (8 years)) Hx Tobacco Use: Yes Smoking Status: Current every day smoker Physical Exam Vitals Vital Signs Date Temp Pulse Resp B/P (MAP) Pulse Ox O2 O2 Flow FiO2 Time Delivery Rate 07/10/18 88 18 155/98 98 08:47 (117) 07/10/18 86 19 166/100 100 08:05 (122) 07/10/18 98.2 108 20 175/84 99 05:55 (114) Physical Exam Constitutional:Well-developed. Well-nourished. Patient appears to be in a significant amount of discomfort secondary to pain HEENT:Normocephalic. Atraumatic.Pupils were equal round reactive to light. Moist mucous membranes.No tonsillar exudates. Neck: No nuchal rigidity. No lymphadenopathy. No posterior cervical spine tenderness or step-offs. Respiratory: Not using accessory muscles of respiration.Lungs were clear to auscultation bilaterally. No rhonchi. No rales. No wheezing. Cardiovascular: Regular rate regular rhythm.No murmurs. No rubs were appreciated.S1, S2 normal. Distal pulses are palpable 2+ bilaterally. GI: Abdomen was soft. Epigastric tenderness. Tenderness in the left upper quadrant with voluntary guarding peer non Distended. No pulsatile abdominal masses or bruits. No rebound. No guarding. Bowel sounds were present and normal. Muscle skeletal: Full range of motion of both the upper and lower extremities bilaterally.Normal muscle tone.No assymetrical calf tenderness or swelling. Skin: No petechia, no purpura. No lesions on the palms or the soles of the feet. No maculopapular rash. NEURO: Patient was alert, awake, orientated x3.No facial droop. Gait observed and normal with no ataxia.Speech had regular rate and rhythm. No focal neurological deficits. Result Diagram: 07/10/18 0707/10/18 07 Results 24 hrs Laboratory Tests Test 07/10/18 07:01 07/10/18 10:02 White Blood Count 10.3 10^3/ul Red Blood Count 3.75 10^6/ul Hemoglobin 11.5 g/dl Hematocrit 35.7 % Mean Corpuscular Volume 95.2 fl Mean Corpuscular Hemoglobin 30.7 pg Mean Corpuscular Hemoglobin Concent 32.2 g/dl Red Cell Distribution Width 13.6 % Platelet Count 205 10^3/UL Mean Platelet Volume 13.4 fl Immature Granulocytes % 0.700 % Neutrophils % 72.6 % Lymphocytes % 13.9 % Monocytes % 9.4 % Eosinophils % 2.5 % Basophils % 0.9 % Nucleated Red Blood Cells % 0.0 /100WBC Immature Granulocytes # 0.070 10^3/ul Neutrophils # 7.5 10^3/ul Lymphocytes # 1.4 10^3/ul Monocytes # 1.0 10^3/ul Eosinophils # 0.3 10^3/ul Basophils # 0.1 10^3/ul Nucleated Red Blood Cells # 0.0 10^3/ul Prothrombin Time 11.6 Sec Prothrombin Time Ratio 0.9 INR International Normalized Ratio 0.84 Activated Partial Thromboplast Time 28.3 Sec Sodium Level 137 mmol/L Potassium Level 5.0 mmol/L Chloride Level 96 mmol/L Carbon Dioxide Level 22 mmol/L Anion Gap 19 Blood Urea Nitrogen 72 mg/dl Creatinine 12.12 mg/dl Est Glomerular Filtrat Rate mL/min 5 mL/min Glucose Level 345 mg/dl Calcium Level 8.0 mg/dl Total Bilirubin 0.0 mg/dl Direct Bilirubin 0.00 mg/dl Indirect Bilirubin 0.0 mg/dl Aspartate Amino Transf (AST/SGOT) 22 IU/L Alanine Aminotransferase (ALT/SGPT) 12 IU/L Alkaline Phosphatase 67 IU/L Troponin I 0.044 ng/ml Total Protein 7.7 g/dl Albumin 4.4 g/dl Globulin 3.30 g/dl Albumin/Globulin Ratio 1.33 Amylase Level 242 U/L Lipase 1549 U/L Triglycerides Level 293 mg/dl Salicylates Level < 1.0 mg/dl Acetaminophen Level < 10.0 ug/ml Ethyl Alcohol Level < 10.0 mg/dl Current Medications Medications Dose Sig/[place] Start Time Status Last (Trade) Ordered Route PRN Stop Time Admin Dose Reason Admin Sodium 1,000 ml @ Q1H STAT 07/10/18 DC Chloride 1,000 mls/hr IV 06:45 07/10/18 07:15 Morphine 4 mg ONCE STAT 07/10/18 DC 07/10/18 Sulfate IV 06:45 07:06 (morphine) 07/10/18 06:47 Ondansetron 4 mg ONCE STAT 07/10/18 DC 07/10/18 HCl (Zofran IV 06:45 07:06 Inj) 07/10/18 06:47 1 mg ONCE STAT 07/10/18 DC 07/10/18 Hydromorphone IV 07:21 07:30 HCl 07/10/18 07:22 (Dilaudid) Ondansetron 4 mg ONCE STAT 07/10/18 DC 07/10/18 HCl (Zofran IV 07:21 07:30 Inj) 07/10/18 07:22 Procedures/MDM This patient presented to the emergency department with abdominal pain and was seen and evaluated by myself. My differential diagnosis included but was not limited to abdominal aortic aneurysm, appendicitis, pancreatitis, perforated peptic ulcer, perforated viscus, Boerhaaves syndrome or visceral pain such as diverticulitis, DKA, esophagitis, hepatitis or bowel obstruction. The patient was placed on a business reporting developer, continuous pulse oximetry, and IV access was established by nursing staff. The patient received intravenous Dilaudid and Zofran. The patient's lipase was elevated consistent with acute pancreatitis. [place] it was necessary to obtain a CT scan of the abdomen without contrast, due to the fact that the patient has renal disease, and to rule out the possibility of a pancreatic abscess or pseudocyst. This was not seen on the CT scan. The patient's BUN and creatinine were elevated. He will undergo emergent hemodialysis. I spoke with Dr. Giordano who will be the admitting physician. The patient will go to the medical surgical floor in serious condition. The patient's potassium was within normal limits. The patient had no chest pain did not feel is necessary to obtain an EKG. Patient had a chest radiograph which showed no pulmonary edema but there was cardiomegaly. The patient was hypotensive and without ketosis and did receive subcutaneous insulin. Departure Diagnosis: Primary Impression: Pancreatitis Chronicity: acute Pancreatitis type: unspecified pancreatitis type Acute pancreatitis complication: unspecified Qualified Codes: K85.90 - Acute pancreatitis without necrosis or infection, unspecified Additional Impressions: Renal failure (ARF), acute on chronic Acute renal failure type: unspecified Chronic kidney disease stage: on chronic dialysis Qualified Codes: N17.9 - Acute kidney failure, unspecified; N18.9 - Chronic kidney disease, unspecified; Z99.2 - Dependence on renal dialysis Hyperglycemia without ketosis Condition: Serious MIAN CHAMORRO MD Jul 10, 2018 07:28
[2018-07-10] MEDS ORDERED: ESCI10TA48 PO (10:03)
[2018-07-10] MEDS ORDERED: ERGO500013 PO (10:04)
[2018-07-10] MEDS ORDERED: INSULIN LISPRO 100 UNIT/ML VIAL SC STA (11:27)
[2018-07-10] MEDS: morphine 2 MG INJ IV PRN ×3 (13:29→22:16)
[2018-07-10] MEDS: SOD CHLORIDE 0.9% 1,000 ML IV SCH ×2 (13:29→17:48)
[2018-07-10] MEDS ORDERED: morphine SULFATE/PF (2 MG/2 ML) SYG IV PRN (13:30)
--- NOTE | 2018-07-10 16:55 | QN ---
Documentation Comment seen and examined MIKE GIFFORD MD Jul 10, 2018 16:55
[2018-07-10] MEDS: NIFEdipine (XL) 30 MG TAB PO SCH (17:29)
[2018-07-10] MEDS ORDERED: GLUCAGON 1 MG INJ IM PRN (17:30)
[2018-07-10] MEDS ORDERED: DEXTROSE 50% 50 ML SYRINGE IV PRN ×2 (17:30)
[2018-07-10] MEDS ORDERED: GLUCOSE GEL 15 GRAM TUBE BUCCAL PRN (17:30)
[2018-07-10] MEDS ORDERED: GLUCOSE GEL 15 GRAM TUBE PO PRN ×2 (17:30)
[2018-07-10] MEDS: CALCIUM ACETATE 667 MG CAP PO SCH (17:30)
[2018-07-10] MEDS: FUROSEMIDE 40 MG TAB PO SCH (17:30)
[2018-07-10] MEDS: INSULIN ASPART [NOVOLOG] 3 ML PEN SC SCH ×2 (17:50→21:00)
--- NOTE | 2018-07-10 20:11 | HP ---
DATE OF ADMISSION: 07/10/2018 REASON FOR ADMISSION: Left upper quadrant pain. HISTORY OF PRESENT ILLNESS: This is a 32-year-old male with a past medical history of diabetes, hype rtension, end-stage renal disease on hemodialysis Saturday, and Saturday; hyperlipidemia and chronic opioid use who presented to the emergency department again complaining of epigastric left fla nk pain with some nausea and vomiting. The patient has had multiple admissions in the past secondary to pancreatitis, last was on 07/01/2018. The patient was status post cholecystectomy. The patient was seen by Dr. Duong, started on pain control and IV fluids. Lipase was normalized and was dischar ged home in stable condition. According to the patient, he was having some left-sided flank pain whe n he was sleeping. The patient also had some nausea this morning. He denied any hematemesis, any me deyvi or any bright red blood per rectum. Last time, on discharge, she was prescribed antibiotics, wh ich he had not been taking. On admission, vital signs showed a blood pressure of 161/94, afebrile, h eart rate 91, respirations 16, saturating 96%. Labs showed a potassium of 5.0, BUN of 72, creatinine of 12.2. LFTs within normal limits. Lipase was 1549, amylase 242. Glucose 255. The patient had a gain repeat a CT of the abdomen and pelvis that showed no significant change, status post prior linh cystectomy, prior appendectomy, stable mild bilateral perirenal stranding and the patient was admitte d for further management. PAST MEDICAL HISTORY: 1. End-stage renal disease on hemodialysis Saturday, and Saturday. 2. Hypertension. 3. Diabetes with complications of diabetic neuropathy, retinopathy and nephropathy. 4. Hyperlipidemia. 5. History of drug use. 6. History of pancreatitis. 7. History of gallstones, status post cholecystectomy. 8. History of appendectomy. 9. 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 ALLERGIES: PENICILLIN. PAST SURGICAL HISTORY: Appendectomy, multiple eye surgeries for diabetic retinopathy, and cholecyste ctomy. FAMILY HISTORY: Significant for diabetes. SOCIAL HISTORY: He lives with the family. He denies any alcohol or recreational drug use. MEDICATIONS: At home, the patient has been takin. Coreg. 2. Procardia. 3. Lexapro. 4. Gabapentin. 5. [place]. 6. Lasix 40 b.i.d. 7. Calcium acetate with meals. 8. Protonix. REVIEW OF SYSTEMS: The patient complained of left upper flank pain and left upper abdominal pain. T here have been episodes of some nausea. He denied any diarrhea. He denied complaint of any chills. He denied any hematuria or any dysuria. He denied any hematemesis, melena or bright red blood per r ectum. He denies any focal neurological deficits. PHYSICAL EXAMINATION: VITAL SIGNS: Blood pressure 161/86, afebrile, heart rate 86, respirations 18, saturating 97%. GENERAL: The patient is awake, alert, oriented, appears to be in no distress. HEENT: Pupils equal, round and reactive to light. No scleral icterus. NECK: Supple. No JVD. HEART: Regular rhythm. LUNGS: Clear to auscultation bilaterally. ABDOMEN: The patient has left upper quadrant tenderness. Positive bowel sounds. EXTREMITIES: No clubbing, cyanosis, or edema. The patient has a right Perm-A-Cath in place. LABORATORY DATA: Labs showed potassium of 5.0, BUN of 72, creatinine 12.2, amylase 242 and lipase 15 49. White count of 10.3 and hemoglobin 11.5. ASSESSMENT : This is a 32-year-old male who presented with: 1. Recurrent pancreatitis, unknown etiology at this point. The patient is status post cholecystecto my. I am not sure if the patient has been consuming alcohol. We will also check for lipid panel. T riglycerides 293, was checked on 07/03/2018. 2. End-stage renal disease on hemodialysis. 3. Hypertension. 4. Hyperlipidemia. 5. Diabetes, uncontrolled. 6. Hypertension. 7. Diabetes with complication of diabetic neuropathy, nephropathy and retinopathy. 8. History of drug abuse. PLAN: At this period of time, the patient was admitted to med/surg. The patient will be kept n.p.o. and start on gentle IV fluids. Blood pressure medications will be restarted and the patient will be also kept on IV Protonix. The patient will be continued on hemodialysis. GI will be consulted. Th e rest of the treatment will depend on the patient's hospitalization course. Dictated By: MIKE BIGGS/VIKTORIYA Conf#: [id number] [facility]#: [id number]
[2018-07-10] MEDS ORDERED: HEPARIN 1000 UNITS/ML 10 ML INJ CATHETER SCH (20:30)
[2018-07-10] MEDS: GABAPENTIN 300 MG CAP PO SCH (22:15)
[2018-07-10] MEDS: ATORVASTATIN 10 MG TAB PO SCH (22:15)
[2018-07-10] MEDS: hydrALAzine 20 MG INJ IV PRN (22:24)
[2018-07-11] VITALS (7 sets, daily range): BP systolic 153–185; BP diastolic 80–94; PULSE 73–97; RESP 20–88
--- NOTE | 2018-07-11 00:36 | CONS ---
DATE OF ADMISSION: 07/10/2018 DATE OF CONSULTATION: 07/10/2018 HISTORY OF PRESENT ILLNESS: A 32-year-old gentleman with a history of diabetes mellitus, hypertensio n, legally blind, end-stage renal disease on dialysis, comes to the hospital again complaining of louie n in the left renal angle area radiating to the front left upper quadrant and epigastric area. No na usea, no vomiting. In the ER, he was evaluated and found to have amylase 242, lipase was elevated 14 59, so he was admitted with a diagnosis of pancreatitis. The patient denies of consuming alcohol. N o chest pain, no shortness of breath, no fever, no chills. Each time he gets admitted to the [facility] within 24 hours, his pain disappears and always wants to go home. PAST MEDICAL HISTORY: End-stage renal disease, hypertension, diabetes mellitus, hyperlipidemia, hist ory of drug use, pancreatitis, status post cholecystectomy, appendicectomy, and legally blind. ALLERGIES: PENICILLIN. FAMILY HISTORY: Significant for diabetes. SOCIAL HISTORY: He denies of alcohol and recreational drug. HOME MEDICATIONS: Reviewed. He is not on any medication known to produce pancreatitis. PHYSICAL EXAMINATION: GENERAL: Alert, awake, not in distress. VITAL SIGNS: Stable. HEENT: Unremarkable. NECK: Supple, no thyromegaly, no lymphadenopathy. CARDIOVASCULAR: No murmur, gallop or click. LUNGS: Clear. ABDOMEN: Benign. EXTREMITIES: No edema. CENTRAL NERVOUS SYSTEM: Grossly within normal limits. The patient's triglyceride was 293. IMPRESSION: 1. Pancreatitis, exact etiology is unclear. His alcohol level was less than 10. 2. Diabetes mellitus. 3. Legally blind. 4. End-stage renal disease on dialysis. 5. Hyperlipidemia. 6. Mildly dilated bile duct on the CAT scan may be compensatory and last MRCP was negative for pancr eatic divisum. 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 Dictated By: MAXIMO QUIROZ/VIKTORIYA Conf#: [id number] DID#: [id number] CC: MAXIMO KUHN MD; MIKE GIFFORD;*EndCC*
[2018-07-11] MEDS: ACCU-CHEK XX SCH (01:48)
[2018-07-11] MEDS: morphine 2 MG INJ IV PRN ×6 (02:01→22:38)
[2018-07-11] MEDS: hydrALAzine 20 MG INJ IV PRN ×2 (05:47→21:47)
[2018-07-11] MEDS: FUROSEMIDE 40 MG TAB PO SCH ×2 (05:47→18:18)
[2018-07-11] MEDS: SOD CHLORIDE 0.9% 1,000 ML IV SCH (05:48)
[2018-07-11] MEDS: INSULIN ASPART [NOVOLOG] 3 ML PEN SC SCH ×5 (08:00→21:00)
[2018-07-11] MEDS: NIFEdipine (XL) 30 MG TAB PO SCH (08:39)
[2018-07-11] MEDS: CALCIUM ACETATE 667 MG CAP PO SCH ×3 (08:40→18:00)
[2018-07-11] MEDS: ONDANSETRON 4 MG INJ IV PRN ×2 (12:46→22:03)
--- NOTE | 2018-07-11 16:33 | PN ---
Date/Time of Note Date/Time of Note DATE: 07/11/18 TIME: 16:29 Assessment/Plan VTE Prophylaxis Risk score (from Ns)>0 risk: 0 SCD applied (from Ns): No SCD contraindicated: low risk/ambulating Pharmacological prophylaxis: NA/contraindicated Pharm contraindication: low risk/ambulating Lines/Catheters IV C[facility] Type [facility]from [facility] [place]ine [place] Assessment/Plan Hospital Course his is a 32-year-old male who presented with: 1. Recurrent pancreatitis, unknown etiology at this point. The patient is status post cholecystectomy. I am not sure if the patient has been consuming alcohol. We will also check for lipid panel. Triglycerides 293, was checked on 07/03/2018. 2. End-stage renal disease on hemodialysis. 3. Hypertension. 4. Hyperlipidemia. 5. Diabetes, uncontrolled. 6. Hypertension. 7. Diabetes with complication of diabetic neuropathy, nephropathy and retinopathy. 8. History of drug abuse. plan - CLD - Pain control cw nifedipine/lasix/coreg - HD TTS - UCX - ERCP saturday Result Diagram: 07/10/1870007/10/18700 Results 24hrs Laboratory Tests Test 07/10/18 17:10 07/10/18 17:49 07/10/18 22:20 07/11/18 05:22 Urine Color STRAW Urine Clarity CLEAR Urine pH 7.0 Urine Specific 1.012 [place] Urine Ketones NEGATIVE Urine Nitrite NEGATIVE Urine Bilirubin NEGATIVE Urine Urobilinogen NEGATIVE Urine Leukocyte NEGATIVE Esterase Urine Microscopic 2 RBC Urine Microscopic 4 WBC Urine Bacteria FEW A Urine Hemoglobin NEGATIVE Urine Glucose 3+ H Urine Total Protein 3+ H Bedside Glucose 108 117 Triglycerides Level 239 H Cholesterol Level 144 LDL Cholesterol, 72 Calculated HDL Cholesterol 24 L Cholesterol/HDL 6.0 Ratio Lipase 64 Test 07/11/18 08:37 07/11/18 11:57 07/11/18 12:38 Bedside Glucose 120 150 175 Subjective 24 Hr Interval Summary Free Text/Dictation Still has a left upper quadrant Had one episode of vomiting this a.m. Exam/Review of Systems Exam Vitals Vital Signs Date Temp Pulse Resp B/P (MAP) Pulse Ox O2 O2 Flow FiO2 Time Delivery Rate 07/11/18 97.8 73 20 155/88 96 14:00 (110) 07/11/18 Room Air 07:50 Intake and Output 07/10/18 07/10/18 07/11/18 1515:00 23:00 07:00 IntakeIntake Total 330 ml 910 ml OutputOutput Total 3900 ml BalanceBalance -3570 ml 910 ml Exam ENERAL: The patient is awake, alert, oriented, appears to be in no distress. HEENT: Pupils equal, round and reactive to light. No scleral icterus. NECK: Supple. No JVD. HEART: Regular rhythm. LUNGS: Clear to auscultation bilaterally. ABDOMEN: The patient has left upper quadrant tenderness. Positive bowel sounds. EXTREMITIES: No clubbing, cyanosis, or edema. The patient has a right Perm-A-Cath in place. Results Results 24hrs Laboratory Tests Test 07/10/18 17:10 07/10/18 17:49 07/10/18 22:20 07/11/18 05:22 Urine Color STRAW Urine Clarity CLEAR Urine pH 7.0 Urine Specific 1.012 [place] Urine Ketones NEGATIVE Urine Nitrite NEGATIVE Urine Bilirubin NEGATIVE Urine Urobilinogen NEGATIVE Urine Leukocyte NEGATIVE Esterase Urine Microscopic 2 RBC Urine Microscopic 4 WBC Urine Bacteria FEW A Urine Hemoglobin NEGATIVE Urine Glucose 3+ H Urine Total Protein 3+ H Bedside Glucose 108 117 Triglycerides Level 239 H Cholesterol Level 144 LDL Cholesterol, 72 Calculated HDL Cholesterol 24 L Cholesterol/HDL 6.0 Ratio Lipase 64 Test 07/11/18 08:37 07/11/18 11:57 07/11/18 12:38 Bedside Glucose 120 150 175 Medications Medication Current Medications Sodium Chloride 1,000 ml @ 50 mls/hr Q20H IV Last administered on 07/11/18at 05:48; Admin Dose 50 MLS/HR; Start 07/10/18 at 13:30 Ondansetron HCl (Zofran Inj) 4 mg Q6H PRN IV NAUSEA AND/OR VOMITING Last administered on 07/11/18at 12:46; Admin Dose 4 MG; Start 07/10/18 at 13:30 Morphine Sulfate (morphine) 2 mg Q4H PRN IV PAIN Last administered on 07/11/18at 14:15; Admin Dose 2 MG; Start 07/10/18 at 13:30 Calcium Acetate (Phoslo) 2,001 mg WITH MEALS PO Last administered on 07/11/18at 08:40; Admin Dose 2,001 MG; Start 07/10/18 at 18:00 Furosemide (Lasix) 40 mg BID DIURETICS PO Last administered on 07/11/18 05:47; Admin Dose 40 MG; Start 07/10/18 at 18:00 Atorvastatin Calcium (Lipitor) 10 mg HS PO Last administered on 07/10/18 22:15; Admin Dose 10 MG; Start 07/10/18 at 21:00 Carvedilol (Coreg) 12.5 mg BID PO Last administered on 07/11/18 08:40; Admin Dose 12.5 MG; Start 07/10/18 at 21:00 Gabapentin (Neurontin) 300 mg HS PO Last administered on 07/10/18at 22:15; Admin Dose 300 MG; Start 07/10/18 at 21:00 Nifedipine (Procardia Xl) 30 mg DAILY PO Last administered on 07/11/18 08:39; Admin Dose 30 MG; Start 07/10/18 at 15:30 Diagnostic Test (Pha) (Accu-Chek) 1 ea 02 XX ; Start 07/11/18 at 02:00 Insulin Aspart (Novolog Insulin Pen) NOVOLOG *MILD* ALGORITHM WITH MEALS BEDTIME SC Last administered on 07/11/18 12:02; Admin Dose 1 UNIT; Start 07/10/18 at 18:00 Miscellaneous Information 1 ea NOTE XX ; Start 07/10/18 at 17:30 Glucose (Glutose) 15 gm Q15M PRN PO DECREASED GLUCOSE; Start 07/10/18 at 17:30 Glucose (Glutose) 22.5 gm Q15M PRN PO DECREASED GLUCOSE; Start 07/10/18 at 17:30 Dextrose (D50w Syringe) 25 ml Q15M PRN IV DECREASED GLUCOSE; Start 07/10/18 at 17:30 Dextrose (D50w Syringe) 50 ml Q15M PRN IV DECREASED GLUCOSE; Start 07/10/18 at 17:30 Glucagon (Glucagen) 1 mg Q15M PRN IM DECREASED GLUCOSE; Start 07/10/18 at 17:30 Glucose (Glutose) 15 gm Q15M PRN BUCCAL DECREASED GLUCOSE; Start 07/10/18 at 17:30 Heparin Sodium (Porcine) (Heparin (1000 Units/ml)) 3,300 unit AFTER DIALYSIS CATHETER Last administered on 07/10/18 22:22; Admin Dose 3,300 UNIT; Start 07/10/18 at 20:30 Hydralazine HCl (Apresoline) 20 mg Q6H PRN IV ELEVATED SYSTOLIC BP Last administered on 07/11/18at 05:47; Admin Dose 20 MG; Start 07/10/18 at 21:30 Clonidine (Catapres) 0.2 mg TID PRN PO ELEVATED BLOOD PRESSURE; Start 07/11/18 at 03:00 MIKE GIFFORD MD Jul 11, 2018 16:33
[2018-07-11] MEDS ORDERED: HEPARIN 1000 UNITS/ML 10 ML INJ CATHETER SCH (17:00)
[2018-07-11] MEDS: ATORVASTATIN 10 MG TAB PO SCH (21:48)
[2018-07-11] MEDS: GABAPENTIN 300 MG CAP PO SCH (21:48)
[2018-07-12] VITALS (17 sets, daily range): BP systolic 123–198; BP diastolic 68–107; PULSE 83–96; RESP 18–20
[2018-07-12] MEDS: ACCU-CHEK XX SCH (01:26)
[2018-07-12] MEDS: SOD CHLORIDE 0.9% 1,000 ML IV SCH (01:29)
[2018-07-12] MEDS: morphine 2 MG INJ IV PRN ×3 (04:47→12:57)
[2018-07-12] MEDS: hydrALAzine 20 MG INJ IV PRN (05:14)
[2018-07-12] MEDS: FUROSEMIDE 40 MG TAB PO SCH (05:16)
[2018-07-12] MEDS: CALCIUM ACETATE 667 MG CAP PO SCH ×2 (08:00→12:00)
[2018-07-12] MEDS: INSULIN ASPART [NOVOLOG] 3 ML PEN SC SCH ×2 (08:00→12:00)
[2018-07-12] MEDS: NIFEdipine (XL) 30 MG TAB PO SCH (08:50)
[2018-07-12] MEDS: ONDANSETRON 4 MG INJ IV PRN (11:17)
--- NOTE | 2018-07-12 14:21 | CONS ---
Assessment/Plan Assessment/Plan Assessment/Plan (Daily) IMPRESSION: 1. Pancreatitis, exact etiology is unclear. His alcohol level was less than 10. 2. Diabetes mellitus. 3. Legally blind. 4. End-stage renal disease on dialysis. 5. Hyperlipidemia. 6. Mildly dilated bile duct on the CAT scan may be compensatory and last MRCP was negative for pancreatic divisum. Plan Reglan [id number] Continue liquid diet Consultation Date/Type/Reason Admit Date/Time Jul 10, 2018 at 09:43 Initial Consult Date Date/Time of Note DATE: 07/12/18 TIME: 14:20 24 HR Interval Summary Free Text/Dictation Patient did vomit this morning on a liquid diet. Continues to have abdominal pain Constitutional: improved Exam/Review of Systems Exam Vitals Vital Signs Date Temp Pulse Resp B/P (MAP) Pulse Ox O2 O2 Flow FiO2 Time Delivery Rate 07/12/18 84 18 160/81 97 Room Air 08:00 (107) 07/12/18 97.8 02:00 Intake and Output 07/11/18 07/11/18 07/12/18 1515:00 23:00 07:00 IntakeIntake Total 730 ml 1134 ml BalanceBalance 730 ml 1134 ml Constitutional: alert, oriented, well developed Psych: no complaints, nl mood/affect Head: normocephalic, atraumatic Eyes: nl conjunctiva, EOMI, nl lids, nl sclera, PERRL ENMT: nl external ears & nose, nl lips & teeth, nl nasal mucosa & septum Neck: supple, non-tender Respiratory: clear to auscultation, normal air movement Cardiovascular: regular rate and rhythm, nl pulses Gastrointestinal: soft, nl liver, spleen, non-tender Musculoskeletal: nl extremities to inspection, nl gait and stance Extremities: normal pulses Neurological: CLINIC ADMINISTRATOR II-XII intact, nl mental status, nl speech, nl strength Skin: nl turgor; No rash or lesions Lymph: nl lymph nodes Results Result Diagram: 07/10/18 0701 07/10/18 0701 Results 24hrs Laboratory Tests Test 07/11/18 17:18 07/11/18 21:54 07/12/18 08:54 07/12/18 12:56 Bedside Glucose 136 127 130 116 Medications Medication Current Medications Sodium Chloride 1,000 ml @ 50 mls/hr Q20H IV Last administered on 07/12/18 01:29; Admin Dose 50 MLS/HR; Start 07/10/18 at 13:30 Ondansetron HCl (Zofran Inj) 4 mg Q6H PRN IV NAUSEA AND/OR VOMITING Last administered on 07/12/18 11:17; Admin Dose 4 MG; Start 07/10/18 at 13:30 Morphine Sulfate (morphine) 2 mg Q4H PRN IV PAIN Last administered on 07/12/18 12:57; Admin Dose 2 MG; Start 07/10/18 at 13:30 Calcium Acetate (Phoslo) 2,001 mg WITH MEALS PO Last administered on 07/11/18 08:40; Admin Dose 2,001 MG; Start 07/10/18 at 18:00 Furosemide (Lasix) 40 mg BID DIURETICS PO Last administered on 07/11/18 18:18; Admin Dose 40 MG; Start 07/10/18 at 18:00 Atorvastatin Calcium (Lipitor) 10 mg HS PO Last administered on 07/11/18 21:48; Admin Dose 10 MG; Start 07/10/18 at 21:00 Carvedilol (Coreg) 12.5 mg BID PO Last administered on 07/12/18 08:50; Admin Dose 12.5 MG; Start 07/10/18 at 21:00 Gabapentin (Neurontin) 300 mg HS PO Last administered on 07/11/18 21:48; Admin Dose 300 MG; Start 07/10/18 at 21:00 Nifedipine (Procardia Xl) 30 mg DAILY PO Last administered on 07/12/18 08:50; Admin Dose 30 MG; Start 07/10/18 at 15:30 Diagnostic Test (Pha) (Accu-Chek) 1 ea 02 XX ; Start 07/11/18 at 02:00 Insulin Aspart (Novolog Insulin Pen) NOVOLOG *MILD* ALGORITHM WITH MEALS BEDTIME SC Last administered on 07/11/18 12:02; Admin Dose 1 UNIT; Start 07/10/18 at 18:00 Miscellaneous Information 1 ea NOTE XX ; Start 07/10/18 at 17:30 Glucose (Glutose) 15 gm Q15M PRN PO DECREASED GLUCOSE; Start 07/10/18 at 17:30 Glucose (Glutose) 22.5 gm Q15M PRN PO DECREASED GLUCOSE; Start 07/10/18 at 17:30 Dextrose (D50w Syringe) 25 ml Q15M PRN IV DECREASED GLUCOSE; Start 07/10/18 at 17:30 Dextrose (D50w Syringe) 50 ml Q15M PRN IV DECREASED GLUCOSE; Start 07/10/18 at 17:30 Glucagon (Glucagen) 1 mg Q15M PRN IM DECREASED GLUCOSE; Start 07/10/18 at 17:30 Glucose (Glutose) 15 gm Q15M PRN BUCCAL DECREASED GLUCOSE; Start 07/10/18 at 17:30 Heparin Sodium (Porcine) (Heparin (1000 Units/ml)) 3,300 unit AFTER DIALYSIS CATHETER Last administered on 07/10/18at 22:22; Admin Dose 3,300 UNIT; Start 07/10/18 at 20:30 Hydralazine HCl (Apresoline) 20 mg Q6H PRN IV ELEVATED SYSTOLIC BP Last administered on 07/12/18at 05:14; Admin Dose 20 MG; Start 07/10/18 at 21:30 Clonidine (Catapres) 0.2 mg TID PRN PO ELEVATED BLOOD PRESSURE; Start 07/11/18 at 03:00 Heparin Sodium (Porcine) (Heparin (1000 Units/ml)) 4,000 unit AFTER DIALYSIS CATHETER ; Start 07/11/18 at 17:00 MAXIMO KUHN MD Jul 12, 2018 14:21
--- NOTE | 2018-07-12 15:58 | PN ---
Date/Time of Note Date/Time of Note DATE: 07/12/18 TIME: 15:56 Assessment/Plan VTE Prophylaxis Risk score (from Nsg)>0 risk: 2 SCD applied (from Nsg): No SCD contraindicated: other (fall risk) Pharmacological prophylaxis: heparin Lines/Catheters IV Catheter Type (from Nrsg): Peripheral IV Assessment/Plan Hospital Course 1. Recurrent pancreatitis, unknown etiology at this point. The patient is status post cholecystectomy. 2. End-stage renal disease on hemodialysis. 3. Hypertension. 4. Hyperlipidemia. 5. Diabetes, uncontrolled. 6. Hypertension. 7. Diabetes with complication of diabetic neuropathy, nephropathy and retinopathy. 8. History of drug abuse. Assessment/Plan - Pain control -liquid diet -hypoglycemic control -DVT prophylaxis Start Heparin -GI prophylaxis Start Protonix -cw nifedipine/lasix/coreg - HD TTS - UCX negative - ERCP Saturday Result Diagram: 07/10/1870007/10/18700 Results 24hrs Laboratory Tests Test 07/11/18 17:18 07/11/18 21:54 07/12/18 08:54 07/12/18 12:56 Bedside Glucose 136 127 130 116 Subjective 24 Hr Interval Summary Gastrointestinal: pain (with irradition to the back) Exam/Review of Systems Exam Vitals Vital Signs Date Temp Pulse Resp B/P (MAP) Pulse Ox O2 O2 Flow FiO2 Time Delivery Rate 07/12/18 96 15:15 07/12/18 20 196/100 Room Air 12:35 (132) 07/12/18 97 08:00 07/12/18 97.8 02:00 Intake and Output 07/11/18 07/11/18 07/12/18 1414:59 22:59 06:59 IntakeIntake Total 730 ml 1134 ml BalanceBalance 730 ml 1134 ml Exam right chest Perm cath Constitutional: alert, oriented Eyes: other (blind) Neck: supple Respiratory: clear to auscultation Cardiovascular: regular rate and rhythm Gastrointestinal: soft, rebound or guarding (left Upper qudrant) Results Results 24hrs Laboratory Tests Test 07/11/18 17:18 07/11/18 21:54 07/12/18 08:54 07/12/18 12:56 Bedside Glucose 136 127 130 116 Medications Medication Current Medications Sodium Chloride 1,000 ml @ 50 mls/hr Q20H IV Last administered on 07/12/18 01:29; Admin Dose 50 MLS/HR; Start 07/10/18 at 13:30 Ondansetron HCl (Zofran Inj) 4 mg Q6H PRN IV NAUSEA AND/OR VOMITING Last administered on 07/12/18 11:17; Admin Dose 4 MG; Start 07/10/18 at 13:30 Morphine Sulfate (morphine) 2 mg Q4H PRN IV PAIN Last administered on 07/12/18 12:57; Admin Dose 2 MG; Start 07/10/18 at 13:30 Calcium Acetate (Phoslo) 2,001 mg WITH MEALS PO Last administered on 07/11/18 08:40; Admin Dose 2,001 MG; Start 07/10/18 at 18:00 Furosemide (Lasix) 40 mg BID DIURETICS PO Last administered on 07/11/18 18:18; Admin Dose 40 MG; Start 07/10/18 at 18:00 Atorvastatin Calcium (Lipitor) 10 mg HS PO Last administered on 07/11/18 21:48; Admin Dose 10 MG; Start 07/10/18 at 21:00 Carvedilol (Coreg) 12.5 mg BID PO Last administered on 07/12/18 08:50; Admin Dose 12.5 MG; Start 07/10/18 at 21:00 Gabapentin (Neurontin) 300 mg HS PO Last administered on 07/11/18 21:48; Admin Dose 300 MG; Start 07/10/18 at 21:00 Nifedipine (Procardia Xl) 30 mg DAILY PO Last administered on 07/12/18 08:50; Admin Dose 30 MG; Start 07/10/18 at 15:30 Diagnostic Test (Pha) (Accu-Chek) 1 ea 02 XX ; Start 07/11/18 at 02:00 Insulin Aspart (Novolog Insulin Pen) NOVOLOG *MILD* ALGORITHM WITH MEALS BEDTIME SC Last administered on 07/11/18 12:02; Admin Dose 1 UNIT; Start 07/10/18 at 18:00 Miscellaneous Information 1 ea NOTE XX ; Start 07/10/18 at 17:30 Glucose (Glutose) 15 gm Q15M PRN PO DECREASED GLUCOSE; Start 07/10/18 at 17:30 Glucose (Glutose) 22.5 gm Q15M PRN PO DECREASED GLUCOSE; Start 07/10/18 at 17:30 Dextrose (D50w Syringe) 25 ml Q15M PRN IV DECREASED GLUCOSE; Start 07/10/18 at 17:30 Dextrose (D50w Syringe) 50 ml Q15M PRN IV DECREASED GLUCOSE; Start 07/10/18 at 17:30 Glucagon (Glucagen) 1 mg Q15M PRN IM DECREASED GLUCOSE; Start 07/10/18 at 17:30 Glucose (Glutose) 15 gm Q15M PRN BUCCAL DECREASED GLUCOSE; Start 07/10/18 at 17:30 Heparin Sodium (Porcine) (Heparin (1000 Units/ml)) 3,300 unit AFTER DIALYSIS CATHETER Last administered on 07/10/18at 22:22; Admin Dose 3,300 UNIT; Start 07/10/18 at 20:30 Hydralazine HCl (Apresoline) 20 mg Q6H PRN IV ELEVATED SYSTOLIC BP Last administered on 07/12/18at 05:14; Admin Dose 20 MG; Start 07/10/18 at 21:30 Clonidine (Catapres) 0.2 mg TID PRN PO ELEVATED BLOOD PRESSURE; Start 07/11/18 at 03:00 Heparin Sodium (Porcine) (Heparin (1000 Units/ml)) 4,000 unit AFTER DIALYSIS CATHETER ; Start 07/11/18 at 17:00 CALLY PERKINS Jul 12, 2018 15:58
[2018-07-12] MEDS ORDERED: HEPARIN 5,000 UNIT/1 ML VIAL SC SCH (21:00)
--- NOTE | 2018-07-12 21:29 | DS ---
Date/Time of Note Date/Time of Note DATE: 07/12/18 TIME: 21:28 Discharge Summary Admission/Discharge Info Admit Date/Time Jul 10, 2018 at 09:43 Discharge Date/Time Jul 12, 2018 at 17:20 Discharge Diagnosis chronic pancreatitis Patient Condition: Stable Consults dr Duong, GI consult Procedures none Hospital Course This is a 32-year-old male with a past medical history of diabetes, hypertension, end-stage renal disease on hemodialysis Saturday, and Saturday; hyperlipidemia and chronic opioid use who presented to the emergency department again complaining of epigastric left flank pain with some nausea and vomiting. The patient has had multiple admissions in the past secondary to pancreatitis, last was on 07/01/2018. The patient was status post cholecystectomy. The patient was seen by Dr. Duong, started on pain control and IV fluids. Lipase was normalized and was discharged home in stable condition. According to the patient, he was having some left-sided flank pain when he was sleeping. The patient also had some nausea this morning. He denied any hematemesis, any melena or any bright red blood per rectum. Last time, on discharge, she was prescribed antibiotics, which he had not been taking. On admission, vital signs showed a blood pressure of 161/94, afebrile, heart rate 91, respirations 16, saturating 96%. Labs showed a potassium of 5.0, BUN of 72, creatinine of 12.2. LFTs within normal limits. Lipase was 1549, amylase 242. Glucose 255. The patient had again repeat a CT of the abdomen and pelvis that showed no significant change, status post prior cholecystectomy, prior appendectomy, stable mild bilateral perirenal stranding and the patient was admitted for further management. PAST MEDICAL HISTORY: 1. End-stage renal disease on hemodialysis Saturday, and Saturday. 2. Hypertension. 3. Diabetes with complications of diabetic neuropathy, retinopathy and nephropathy. 4. Hyperlipidemia. 5. History of drug use. 6. History of pancreatitis. 7. History of gallstones, status post cholecystectomy. 8. History of appendectomy. 9. 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 ALLERGIES: PENICILLIN. PAST SURGICAL HISTORY: Appendectomy, multiple eye surgeries for diabetic retinopathy, and cholecystectomy. 1. Recurrent pancreatitis, unknown etiology at this point. The patient is status post cholecystectomy. 2. End-stage renal disease on hemodialysis. 3. Hypertension. 4. Hyperlipidemia. 5. Diabetes, uncontrolled. 6. Hypertension. 7. Diabetes with complication of diabetic neuropathy, nephropathy and retinopathy. 8. History of drug abuse. During hospitalization pt was on clear liquid diet, he was given IV fluids , his pain was controlled but not to his satisfaction, he wants more opiates. CT scan of abdomen and pelvis showed :"1. No significant change. 2. Status post prior cholecystectomy. No biliary ductal dilation. 3. Status post prior appendectomy. No gastrointestinal disease. 4. Stable mild bilateral perirenal stranding / induration nonspecific likely evidence of previous inflammatory changes. No calcified urinary calculi or obstructive uropathy." Dr Duong consulted the pt on GI specialty and after CTt scan recommended ERCP, that was scheduled on 07/14/2018. After HD patient suddenly decides to go home. He said he is hungry and requested food. Earlier when pt was on soft diet he vomited and dr Duong changed his diet to clear liquid. Nursing staff tried to accommodate patient but unsuccessfully. Per nursing: "Security tried to let the charge nurse remove the IV but pt stated "don't touch me". Anupam olvera was called and pt walked out of the room and down the person. Security followed pt down person and reported pt removed his own IV in the elevator. Pt was met in the lobby by the nurse supervision and security and proceeded to leave the campus." Pt left AMA, i was paged and coordinated care with Dr Gifford, patient angry outbursts are not new and we hear many unpleasant words from him. Pt has HD chair established where he can follow up with HD. NO AMA papers are available to review. Home Meds Reported Medications Ergocalciferol (Vitamin D2) (VITAMIN D2) 50,000 Unit Capsule, 53913 UNIT PO Q7D, CAP 07/10/18 Escitalopram Oxalate* (Escitalopram Oxalate*) 10 Mg Tablet, 10 MG PO DAILY, #30 TAB 07/10/18 Nifedipine* (Nifedipine ER*) 30 Mg Tablet.sa, 30 MG PO DAILY, TAB.SA 06/25/18 Gabapentin* (Gabapentin*) 300 Mg Capsule, 300 MG PO QHS, #60 CAP 06/25/18 Carvedilol* (Coreg*) 12.5 Mg Tablet, 12.5 MG PO BID, #60 TAB 06/25/18 Simvastatin* (Zocor*) 20 Mg Tablet, 20 MG PO QHS, #30 TAB 04/02/18 Furosemide* (Furosemide*) 40 Mg Tablet, 40 MG PO BID, TAB 12/05/17 Calcium Acetate* (Calcium Acetate*) 667 Mg Capsule, 2001 MG PO WITH MEALS, #30 CAP 12/05/17 Discontinued Reported Medications Insulin Aspart* (Novolog Insulin Pen*) 100 Unit/Ml Soln, 0 SC .SLIDING SCALE AC, EA 03/17/18 Insulin Glargine,Hum.rec.anlog (Basaglar Kwikpen U-100) 100 Unit/1 Ml Insuln.pen, 15 UNIT SC QAM, EA 03/17/18 Discontinued Scripts Ciprofloxacin Hcl* (Ciprofloxacin Hcl*) 250 Mg Tablet, 250 MG PO DAILY for 3 Days, #14 TAB Prov:MIKE GIFFORD MD 07/03/18 Pantoprazole* (Protonix*) 40 Mg Tablet.dr, 40 MG PO DAILY for 30 Days, TAB Prov:MIKE GIFFORD MD 07/03/18 Hydrocodone/Acetaminophen ([place] 5-325 Tablet) 1 Each Tablet, 1 EACH PO Q6 for 7 Days, TAB Prov:CALLY PERKINS 06/27/18 Follow-up Plan c/w HD 3 times a week Primary Care Provider Not On Staff Doctor Time spent on discharge: < 30 minutes Pending Labs Laboratory Tests Test 07/11/18 21:54 07/12/18 08:54 07/12/18 12:56 Bedside Glucose 127 mg/dL (70-220) 130 mg/dL (70-220) 116 mg/dL (70-220) CALLY PERKINS Jul 12, 2018 21:29
[2018-07-13] MEDS ORDERED: PANTOPRAZOLE (EC) 40 MG TAB PO SCH (06:00)
== END 2018-07-12 17:20 | disposition left against medical advice (07) | DRG 438 ==
LOC: E/R 05:45 → 5EC 09:43 → EDBEDREQ 09:45
PROVIDERS: ADMIT Internal Medicine; ATTEND Internal Medicine
PROC: 5A1D70Z Performance of Urinary Filtration, Intermittent, Less than 6 Hours Per Day (ICD-10-PCS; principal; 2018-07-10)
DX: K86.1 Other chronic pancreatitis (principal); N18.6 End stage renal disease; N17.9 Acute kidney failure, unspecified; I12.0 Hypertensive chronic kidney disease with stage 5 chronic kidney disease or end stage renal disease; Z72.0 Tobacco use; F15.90 Other stimulant use, unspecified, uncomplicated; F12.90 Cannabis use, unspecified, uncomplicated; Z99.2 Dependence on renal dialysis; E78.5 Hyperlipidemia, unspecified; E11.40 Type 2 diabetes mellitus with diabetic neuropathy, unspecified; E11.319 Type 2 diabetes mellitus with unspecified diabetic retinopathy without macular edema; E11.21 Type 2 diabetes mellitus with diabetic nephropathy; H54.62 Unqualified visual loss, left eye, normal vision right eye
CPT/HCPCS: 36415; 71045; 74176; 80053; 80061; 80307; 81001; 82150; 82962; 83690; 84478; 84484; 85025; 85610; 85730; 87086; 87340; 90935; 96374; 96375; J0360; J1170; J1644; J1815; J2270; J2405; J7030

== ENCOUNTER 2018-07-15 05:47 | Inpatient (IN) | payer MEDICARE, OTHER ==
[2018-07-15] VITALS (9 sets, daily range): BP systolic 109–195; BP diastolic 95–107; PULSE 68–88; RESP 16–18; Ht 182.9 cm; Wt 94.9 kg
[~2018-07-15] VITALS: Ht 182.9 cm; Wt 94.9 kg
[~2018-07-15 05:47] MED LIST changes: -CIPR-193 PO; +ERGO500013 PO; +ESCI10TA48 PO; -HYDR-4011 PO; -INSU100I33 SC; -NOVO3I SC; -PANT40TA3 PO
[2018-07-15] MEDS ORDERED: ASPIRIN 81 MG TAB PO STA (06:05)
[2018-07-15] MEDS ORDERED: NITROGLYCERIN 2% 1 GM OINT PKT TD STA (06:05)
[2018-07-15] MEDS ORDERED: NITROGLYCERIN (SL) 0.4 MG TAB SL PRN (06:30)
[2018-07-15] MEDS ORDERED: ACETAMINOPHEN 325 MG TAB PO PRN (07:30)
[2018-07-15] MEDS ORDERED: ENOXAPARIN 100 MG/ML SYG SC ONE (07:30)
[2018-07-15] MEDS ORDERED: ONDANSETRON 4 MG INJ IV PRN ×2 (07:30→12:30)
--- NOTE | 2018-07-15 07:36 | ERD ---
ER Documentation Chief Complaint Chief Complaint AP x 1 month, unable to keep down food and drink HPI Patient is a 32-year-old male with hypertension, diabetes, and dialysis who presents with abdominal pain and chest pain. The patient has left-sided chest pain and left-sided abdominal pain. He feels like a "rope is squeezing my h eart". He said that he cannot sleep. He had vomiting and diarrhea as well as chills. He has had no treatment as of yet. Upon review of old medical records the patient has multiple visits with admissions in the past. His doctor is Dr. Franklin. ROS All systems reviewed and are negative except as per history of present illness. Medications Home Meds Reported Medications Ergocalciferol (Vitamin D2) (VITAMIN D2) 50,000 Unit Capsule, 96359 UNIT PO Q7D, CAP 07/10/18 Escitalopram Oxalate* (Escitalopram Oxalate*) 10 Mg Tablet, 10 MG PO DAILY, #30 TAB 07/10/18 Nifedipine* (Nifedipine ER*) 30 Mg Tablet.sa, 30 MG PO DAILY, TAB.SA 06/25/18 Gabapentin* (Gabapentin*) 300 Mg Capsule, 300 MG PO QHS, #60 CAP 06/25/18 Carvedilol* (Coreg*) 12.5 Mg Tablet, 12.5 MG PO BID, #60 TAB 06/25/18 Simvastatin* (Zocor*) 20 Mg Tablet, 20 MG PO QHS, #30 TAB 04/02/18 Furosemide* (Furosemide*) 40 Mg Tablet, 40 MG PO BID, TAB 12/05/17 Calcium Acetate* (Calcium Acetate*) 667 Mg Capsule, 2001 MG PO WITH MEALS, #30 CAP 12/05/17 Discontinued Reported Medications Insulin Aspart* (Novolog Insulin Pen*) 100 Unit/Ml Soln, 0 SC .SLIDING SCALE AC, EA 03/17/18 Insulin Glargine,Hum.rec.anlog (Basaglar Kwikpen U-100) 100 Unit/1 Ml Insuln.pen, 15 UNIT SC QA, EA 03/17/18 Discontinued Scripts Ciprofloxacin Hcl* (Ciprofloxacin Hcl*) 250 Mg Tablet, 250 MG PO DAILY for 3 Days, #14 TAB Prov:MIKE GIFFORD MD 07/03/18 Pantoprazole* (Protonix*) 40 Mg Tablet.dr, 40 MG PO DAILY for 30 Days, TAB Prov:MIKE GIFFORD MD 07/03/18 Hydrocodone/Acetaminophen ([place] 5-325 Tablet) 1 Each Tablet, 1 EACH PO Q6 for 7 Days, TAB Prov:CALLY PERKINS 06/27/18 Allergies Allergies: Coded Allergies: benazepril (Verified Allergy, Unknown, 07/10/18) PMhx/Soc History of Surgery: Yes (Cholecystectomy, Appendectomy, Left eye X4, Right eye X3, HD catheter) Anesthesia Reaction: No Hx Neurological Disorder: No Hx Respiratory Disorders: No Hx Cardiac Disorders: Yes (HTN, PT ON DIALYSIS) Hx Psychiatric Problems: Yes (PT ON LEXAPRO) Hx Miscellaneous Medical Probl: Yes (Diabetic retinopathy.) Hx Alcohol Use: Yes Hx Substance Use: Yes Hx Tobacco Use: Yes Smoking Status: Former smoker FmHx Family History: No coronary disease Physical Exam Vitals Vital Signs Date Temp Pulse Resp B/P (MAP) Pulse Ox O2 O2 Flow FiO2 Time Delivery Rate 07/15/18 98.0 111 20 219/118 99 05:52 (151) Physical Exam Const: No acute distress Head: Atraumatic Eyes: Normal Conjunctiva ENT: Normal External Ears, Nose and Mouth. Neck: Full range of motion. No meningismus. Resp: Clear to auscultation bilaterally Cardio: Regular rate and rhythm, no murmurs Abd: Soft, non tender, non distended. Normal bowel sounds Skin: No petechiae or rashes Back: No midline or flank tenderness Ext: No cyanosis, or edema Neur: Awake and alert Psych: Normal Mood and Affect Result Diagram: 07/15/1822 07/15/18 0622 Results 24 hrs Laboratory Tests Test 07/15/18 06:22 White Blood Count 12.6 10^3/ul Red Blood Count 3.97 10^6/ul Hemoglobin 12.4 g/dl Hematocrit 37.0 % Mean Corpuscular Volume 93.2 fl Mean Corpuscular Hemoglobin 31.2 pg Mean Corpuscular Hemoglobin Concent 33.5 g/dl Red Cell Distribution Width 13.3 % Platelet Count 208 10^3/UL Mean Platelet Volume 12.9 fl Immature Granulocytes % 0.400 % Neutrophils % 83.0 % Lymphocytes % 7.3 % Monocytes % 6.5 % Eosinophils % 2.1 % Basophils % 0.7 % Nucleated Red Blood Cells % 0.0 /100WBC Immature Granulocytes # 0.050 10^3/ul Neutrophils # 10.5 10^3/ul Lymphocytes # 0.9 10^3/ul Monocytes # 0.8 10^3/ul Eosinophils # 0.3 10^3/ul Basophils # 0.1 10^3/ul Nucleated Red Blood Cells # 0.0 10^3/ul Sodium Level 142 mmol/L Potassium Level 5.3 mmol/L Chloride Level 99 mmol/L Carbon Dioxide Level 27 mmol/L Anion Gap 16 Blood Urea Nitrogen 59 mg/dl Creatinine 13.06 mg/dl Est Glomerular Filtrat Rate mL/min 4 mL/min Glucose Level 183 mg/dl Calcium Level 8.9 mg/dl Total Bilirubin 0.1 mg/dl Direct Bilirubin 0.00 mg/dl Indirect Bilirubin 0.1 mg/dl Aspartate Amino Transf (AST/SGOT) 26 IU/L Alanine Aminotransferase (ALT/SGPT) 19 IU/L Alkaline Phosphatase 90 IU/L Troponin I 0.488 ng/ml Total Protein 8.1 g/dl Albumin 4.5 g/dl Globulin 3.60 g/dl Albumin/Globulin Ratio 1.25 Lipase 146 U/L Current Medications Medications Dose Sig/[place] Start Time Status Last (Trade) Ordered Route PRN Stop Time Admin Dose Reason Admin Aspirin 162 mg ONCE STAT 07/15/18 DC 07/15/18 (Aspirin) PO 06:05 06:39 07/15/18 06:06 1 inch ONCE STAT 07/15/18 DC 07/15/18 Nitroglycerin TD 06:05 06:39 07/15/18 06:06 (Nitroglyceri n 2% Oint) 1 tab Q5M UP TO 3 07/15/18 07/15/18 Nitroglycerin DOSES PRN 06:30 06:40 SL .CHEST (Nitroglyceri PAIN n (Sl Tab) 0.4 Mg) Ondansetron 4 mg ER BRIDGE 07/15/18 HCl (Zofran PRN IV 07:30 Inj) NAUSEA/VOMITI 07/16/18 07:29 NG 650 mg ER BRIDGE 07/15/18 Acetaminophen PRN PO 07:30 (Tylenol .MILD PAIN 07/16/18 07:29 Tab) 1-3 OR TEMP Enoxaparin 90 mg ONCE ONCE 07/15/18 DC Sodium SC 07:30 (Lovenox) 07/15/18 07:31 Procedures/MDM EKG read by me: Rate/Rhythm: Regular rate and rhythm at a normal rate Intervals: Normal Impression: No evidence of ischemia or arrhythmia Smoking Cessation Therapy: Pt. was lectured for greater than 3 minutes on the health risks of continued smoking and the benefits of cessation. Patient is a 32-year-old male with multiple cardiac risk factors who presents with hypertension and chest pain. He was found to have a positive troponin. Just 5 days ago he had a troponin which was within normal limits. The patient was given aspirin nitroglycerin. I also gave Lovenox after discussing with Dr. Franklin. The patient will be admitted to a telemetry bed. Inpatient admission is appropriate for NSTEMI. Departure Diagnosis: Primary Impression: NSTEMI (non-ST elevated myocardial infarction) Additional Impression: Abdominal pain Abdominal location: left upper quadrant Qualified Codes: R10.12 - Left upper quadrant pain Condition: Serious SUKHWINDER TREVIÑO MD Jul 15, 2018 07:36
[2018-07-15] MEDS ORDERED: morphine 4 MG/ML VIAL IV STA (07:56)
[2018-07-15] MEDS ORDERED: ONDANSETRON 4 MG INJ IV STA (07:56)
[2018-07-15] MEDS ORDERED: DOCUSATE SODIUM 100 MG CAP PO PRN (12:30)
[2018-07-15] MEDS ORDERED: HYDROCODONE/APAP (5/325) TAB PO PRN (12:30)
[2018-07-15] MEDS ORDERED: NACL 0.9% 3 ML SYG IV SCH (12:30)
[2018-07-15] MEDS: morphine 2 MG INJ IV PRN ×3 (12:33→21:23)
[2018-07-15] MEDS ORDERED: HEPARIN 1000 UNITS/ML 10 ML INJ IV SCH (14:00)
[2018-07-15] MEDS ORDERED: HEPARIN 1000 UNITS/ML 10 ML INJ IV PRN (14:00)
[2018-07-15] MEDS: HEPARIN 25000 UNITS/D5W 250 ML IV SCH (14:57)
--- NOTE | 2018-07-15 15:00 | CONS ---
Assessment/Plan Assessment/Plan Hospital Course (Demo Recall) Elevated troponin concerning for non-ST elevation myocardial infarction End-stage renal disease hemodialysis Hypertension, uncontrolled Diabetes Vasculopathy -Patient presents with symptoms of left-sided discomfort including inspiratory chest pain, pain with palpation, sharp chest pain and pressure. -Troponins are elevated, ECG with no significant ischemic abnormalities -Start aspirin therapy, statin therapy, beta-luis f, patient has already been started on IV heparin -Check echocardiogram, if heart rate can be controlled, would proceed with CT coronary angiogram Consultation Date/Type/Reason Admit Date/Time Jul 15, 2018 at 07:14 Type of Consult Cardiology Reason for Consultation Elevated troponin Date/Time of Note DATE: 07/15/18 TIME: 14:49 Hx of Present Illness This is a 32-year-old male with past medical history of end-stage renal disease on hemodialysis, diabetes, hypertension, vasculopathy presents with left-sided pain going off and on for weeks. Pain is sharp in nature and occasionally tight. Pain is worse with deep inspiration. Pain is also with palpation of left side of chest wall. Patient denies any dizziness or lightheadedness. Pain also in the mid abdomen at times. Exertion does not improve or worsen symptoms. 12 point review of systems was performed with all pertinent positives and negatives mentioned above and all else is negative Past Medical History Medical History: diabetes, hypertension, renal disease Home Meds Reported Medications Ergocalciferol (Vitamin D2) (VITAMIN D2) 50,000 Unit Capsule, 07002 UNIT PO Q7D, CAP 07/10/18 Escitalopram Oxalate* (Escitalopram Oxalate*) 10 Mg Tablet, 10 MG PO DAILY, #30 TAB 07/10/18 Nifedipine* (Nifedipine ER*) 30 Mg Tablet.sa, 30 MG PO DAILY, TAB.SA 06/25/18 Gabapentin* (Gabapentin*) 300 Mg Capsule, 300 MG PO QHS, #60 CAP 06/25/18 Carvedilol* (Coreg*) 12.5 Mg Tablet, 12.5 MG PO BID, #60 TAB 06/25/18 Simvastatin* (Zocor*) 20 Mg Tablet, 20 MG PO QHS, #30 TAB 04/02/18 Furosemide* (Furosemide*) 40 Mg Tablet, 40 MG PO BID, TAB 12/05/17 Calcium Acetate* (Calcium Acetate*) 667 Mg Capsule, 2001 MG PO WITH MEALS, #30 CAP 12/05/17 Discontinued Reported Medications Insulin Aspart* (Novolog Insulin Pen*) 100 Unit/Ml Soln, 0 SC .SLIDING SCALE AC, EA 03/17/18 Insulin Glargine,Hum.rec.anlog (Basaglar Kwikpen U-100) 100 Unit/1 Ml Insuln.pen, 15 UNIT SC QADIONTE Weir 03/17/18 Discontinued Scripts Ciprofloxacin Hcl* (Ciprofloxacin Hcl*) 250 Mg Tablet, 250 MG PO DAILY for 3 Days, #14 TAB Prov:MIKE GIFFORD MD 07/03/18 Pantoprazole* (Protonix*) 40 Mg Tablet.dr, 40 MG PO DAILY for 30 Days, TAB Prov:MIKE GIFFORD MD 07/03/18 Hydrocodone/Acetaminophen ([place] 5-325 Tablet) 1 Each Tablet, 1 EACH PO Q6 for 7 Days, TAB Prov:CALLY PERKINS 06/27/18 Medications Current Medications Nitroglycerin (Nitroglycerin (Sl Tab) 0.4 Mg) 1 tab Q5M UP TO 3 DOSES PRN SL .CHEST PAIN Last administered on 07/15/18at 06:40; Admin Dose 1 TAB; Start 07/15/18 at 06:30 IV Flush (NS 3 ml) 3 ml PER PROTOCOL IV ; Start 07/15/18 at 12:30 Ondansetron HCl (Zofran Inj) 4 mg Q6H PRN IV NAUSEA/VOMITING; Start 07/15/18 at 12:30 Acetaminophen/ Hydrocodone Bitart ([place] (5/325)) 1 tab Q6H PRN PO .MOD PAIN 4- 6; Start 07/15/18 at 12:30 Morphine Sulfate (morphine) 2 mg Q4H PRN IV .SEVERE PAIN 7-10 Last administered on 07/15/18at 12:33; Admin Dose 2 MG; Start 07/15/18 at 12:30 Docusate Sodium (Colace) 100 mg Q12H PRN PO .CONSTIPATION; Start 07/15/18 at 12:30 Famotidine (Pepcid) 20 mg DAILY PO ; Start 07/16/18 at 09:00 Heparin Sodium (Porcine) (Heparin (1000 Units/ml)) 4,000 unit ONCE IV ; Start 07/15/18 at 14:00; Stop 07/15/18 at 23:59 Heparin Sodium (Porcine) 250 ml @ 10 mls/hr Q24H IV ; Start 07/15/18 at 14:00 Heparin Sodium (Porcine) (Heparin (1000 Units/ml)) PRN PRN IV PENDING LAB VALUE; Start 07/15/18 at 14:00 Allergies: Coded Allergies: benazepril (Verified Allergy, Unknown, 07/10/18) Past Surgical History Hemodialysis catheter, multiple eye surgeries Past Surgical Hx: appendectomy, cholecystectomy Social History Smoking Status: Former smoker Drug Use: marijuana, other (Methamphetamine, last time in December 2017) Exam/Review of Systems Vital Signs Vitals Vital Signs Date Temp Pulse Resp B/P (MAP) Pulse Ox O2 O2 Flow FiO2 Time Delivery Rate 07/15/18 81 12:00 07/15/18 97.6 17 195/104 97 11:14 (134) 07/15/18 Room Air 09:01 Exam Constitutional: alert, oriented (No apparent distress, no dyspnea with speaking) Head: normocephalic Respiratory: other (Coarse breath sounds bilaterally, no wheezing) Cardiovascular: regular rate and rhythm (S1-S2 heard) Gastrointestinal: soft, non-tender, bowel sounds Extremities: edema (Trace) Labs Result Diagram: 07/15/18 0622 07/15/18 0622 Results 24hrs Laboratory Tests Test 07/15/18 06:22 07/15/18 11:42 07/15/18 14:06 White Blood Count 12.6 #H Red Blood Count 3.97 L Hemoglobin 12.4 L Hematocrit 37.0 L Mean Corpuscular Volume 93.2 Mean Corpuscular Hemoglobin 31.2 Mean Corpuscular Hemoglobin Concent 33.5 Red Cell Distribution Width 13.3 Platelet Count 208 Mean Platelet Volume 12.9 H Immature Granulocytes % 0.400 Neutrophils % 83.0 H Lymphocytes % 7.3 L Monocytes % 6.5 Eosinophils % 2.1 Basophils % 0.7 Nucleated Red Blood Cells % 0.0 Immature Granulocytes # 0.050 H Neutrophils # 10.5 H Lymphocytes # 0.9 Monocytes # 0.8 Eosinophils # 0.3 Basophils # 0.1 Nucleated Red Blood Cells # 0.0 Sodium Level 142 Potassium Level 5.3 H Chloride Level 99 Carbon Dioxide Level 27 Anion Gap 16 H Blood Urea Nitrogen 59 H Creatinine 13.06 H Est Glomerular Filtrat Rate mL/min 4 L Glucose Level 183 Calcium Level 8.9 Total Bilirubin 0.1 L Direct Bilirubin 0.00 Indirect Bilirubin 0.1 Aspartate Amino Transf (AST/SGOT) 26 Alanine Aminotransferase (ALT/SGPT) 19 Alkaline Phosphatase 90 Troponin I 0.488 *H 1.950 *H Total Protein 8.1 Albumin 4.5 Globulin 3.60 H Albumin/Globulin Ratio 1.25 Lipase 146 Creatine Kinase 138 Creatine Kinase Index 5.3 Creatinine Kinase MB (Mass) 7.31 H Prothrombin Time 12.6 Prothrombin Time Ratio 1.0 INR International Normalized Ratio 0.93 Activated Partial Thromboplast Time 35.1 H Imaging Imaging ECG demonstrates sinus rhythm at 97 bpm, QRS 100 ms, nonspecific ST abnormalities Medications Medications Current Medications Nitroglycerin (Nitroglycerin (Sl Tab) 0.4 Mg) 1 tab Q5M UP TO 3 DOSES PRN SL .CHEST PAIN Last administered on 07/15/18at 06:40; Admin Dose 1 TAB; Start 07/15/18 at 06:30 IV Flush (NS 3 ml) 3 ml PER PROTOCOL IV ; Start 07/15/18 at 12:30 Ondansetron HCl (Zofran Inj) 4 mg Q6H PRN IV NAUSEA/VOMITING; Start 07/15/18 at 12:30 Acetaminophen/ Hydrocodone Bitart ([place] (5/325)) 1 tab Q6H PRN PO .MOD PAIN 4- 6; Start 07/15/18 at 12:30 Morphine Sulfate (morphine) 2 mg Q4H PRN IV .SEVERE PAIN 7-10 Last administered on 07/15/18at 12:33; Admin Dose 2 MG; Start 07/15/18 at 12:30 Docusate Sodium (Colace) 100 mg Q12H PRN PO .CONSTIPATION; Start 07/15/18 at 12:30 Famotidine (Pepcid) 20 mg DAILY PO ; Start 07/16/18 at 09:00 Heparin Sodium (Porcine) (Heparin (1000 Units/ml)) 4,000 unit ONCE IV ; Start 07/15/18 at 14:00; Stop 07/15/18 at 23:59 Heparin Sodium (Porcine) 250 ml @ 10 mls/hr Q24H IV ; Start 07/15/18 at 14:00 Heparin Sodium (Porcine) (Heparin (1000 Units/ml)) PRN PRN IV PENDING LAB VALUE; Start 07/15/18 at 14:00 Jeremias Martinez DO Jul 15, 2018 14:59
[2018-07-15] MEDS ORDERED: METOPROLOL 50 MG TAB PO STA (15:26)
[2018-07-15] MEDS: METOPROLOL 50 MG TAB PO SCH ×2 (15:31→22:00)
[2018-07-15] MEDS: ASPIRIN 81 MG TAB PO SCH (15:31)
--- NOTE | 2018-07-15 15:53 | RADRPT ---
Echocardiogram Report Patient Name: RITA ORTEGAPatient ID: [id number] : 1985 (32y 7m)Study Date: 07/15/2018 1:19:23 PM Gender: MAccession #: [id number] Tech: Nico Kruger [facility] Location: [facility] Ref.Physician: MIKE GIFFORD Height(Cm): BSA: Weight(Kg): Quality: AdequateAccount #: Procedures: Echocardiographic Report: Transthoracic echocardiogram with complete 2D, M-Mode, and doppler examination. Indications: Elevated Troponin. Measurements: 2D/M Mode Doppler Measurement Value Normal Range Measurement Value Normal Range LVIDd 2D 4.5 [ 4.2 - 5.8 ] cm AV Peak Reinaldo 1.3 [ 100.0 - 170.0 ] cm/sec LVIDs 2D 3.0 [ 2.5 - 4.0 ] cm AV Peak PG 6.0 [ 2.0 - 9.0 ] mmHg LVPWd 2D 1.5 [ 0.6 - 1.0 ] cm LVOT Peak Reinaldo 1.0 [ 70.0 - 110.0 ] cm/sec IVSd 2D 1.5 [ 0.6 - 1.0 ] cm LVOT Peak PG 4.0 [ 2.0 - 6.0 ] mmHg AoR Diam 2D 2.6 [ 2.6 - 3.4 ] cm MV E Peak Reinaldo 1.0 [ 60.0 - 130.0 ] cm/sec EDV 2D 91.5 [ 62.0 - 150.0 ] ml MV A Peak Reinaldo 0.9 [ 100.0 - 120.0 ] cm/sec ESV 2D 35.0 [ 21.0 - 61.0 ] ml MV E/A 1.1 [ 0.8 - 1.5 ] ratio EF 2D 61.7 [ 52.0 - 72.0 ] percent MV Decel Time 137 [ 104 - 258 ] msec LA Dimen 2D 3.9 [ 3.0 - 4.0 ] cm Lat E` Reinaldo 0.1 [ 10.0 - 15.0 ] cm/sec Lateral E/E` 17.7 [ 1.0 - 2.0 ] ratio MV E/A 1.1 [ 0.8 - 1.5 ] ratio TR Peak Reinaldo 2.8 [ 100.0 - 280.0 ] cm/sec TR Peak PG 32.0 mmHg RVSP 35.0 [ 10.0 - 36.0 ] mmHg Findings: Left Ventricle: Lower limits of normal systolic function. Normal left ventricular cavity size. Moderate concentric left ventricular hypertrophy. Ejection fraction is visually estimated at 50-55 %. Tissue Doppler/Mitral Doppler indices are consistent with pseudonormalization with mildly elevated left atrial pressure (Stage II diastolic dysfunction). Right Ventricle: Normal right ventricular size. Normal right ventricular systolic function. Left Atrium: The left atrium is normal in size. Right Atrium: The right atrium is normal in size. Mitral Valve: Mild mitral leaflet calcification. Mild mitral annular calcification. Trace mitral regurgitation. Aortic Valve: No hemodynamically significant aortic stenosis by doppler. Aortic cusps appear mildly calcified. Tricuspid Valve: Normal appearance and function of the tricuspid valve with trace physiologic regurgitation. Estimated peak PA systolic pressure 35 mmHg. Pulmonic Valve: Normal pulmonic valve appearance. Pericardium: Normal pericardium with no significant pericardial effusion. Aorta: Normal aortic root. IVC: Normal size and normal respiratory collapse consistent with normal right atrial pressure. Conclusions: Lower limits of normal systolic function. Normal left ventricular cavity size. Moderate concentric left ventricular hypertrophy. Ejection fraction is visually estimated at 50-55 %. Tissue Doppler/Mitral Doppler indices are consistent with pseudonormalization with mildly elevated left atrial pressure (Stage II diastolic dysfunction). Normal right ventricular size. Normal right ventricular systolic function. The left atrium is normal in size. The right atrium is normal in size. No significant valvular stenosis or regurgitation seen. Normal pericardium with no significant pericardial effusion. Electronically Signed By: Jeremias Martinez 2018-07-15 15:52:03 PDT
[2018-07-15] MEDS ORDERED: METOPROLOL 100 MG TAB PO STA (16:03)
--- NOTE | 2018-07-15 17:24 | QN ---
Documentation Comment SEEN AND EXAMINED MIKE GIFFORD MD Jul 15, 2018 17:24
[2018-07-15] MEDS: NIFEdipine (XL) 30 MG TAB PO SCH (18:00)
--- NOTE | 2018-07-15 19:06 | HP ---
DATE OF ADMISSION: 07/15/2018 REASON FOR ADMISSION: Chest pain and abdominal pain. HISTORY OF PRESENT ILLNESS: This is a 32-year-old male with a past medical history of end-stage terri l disease on hemodialysis Saturday, and Saturday; hypertension, diabetes, hyperlipidemia, chr onic opioid use, presented to the emergency department secondary to complaining of chest pain this mo rning and also left upper quadrant pain. The patient has had multiple admissions in the past seconda ry to pancreatitis. The patient left AMA on 07/10/2018. The patient was supposed to get an ERCP at that time. The patient had denied chest pain. According to the patient, he left AMA. This morning he woke up, he was having a left-sided abdominal pain going to the flank that woke him up last night. He was also having some nausea, vomiting and diarrhea. The patient is worse with deep inspiration. The patient was also on palpation of the left side of the chest wall. The patient denied any dizzi ness or lightheadedness. Denies any urinary symptoms. On arrival to ED, the patient's vitals showed a blood pressure of 189/105, heart rate 83, respirations 16. Labs showed white count 12.6, hemoglob in 12.4. Troponin was 0.488, lipase 146, potassium 5.3, BUN of 59, creatinine 13.06. The patient al so had an EKG that showed no acute ST-T wave changes and the patient was admitted for further managem ent. PAST MEDICAL HISTORY: 1. End-stage renal disease, on hemodialysis Saturday, and Saturday. 2. Hypertension. 3. Hyperlipidemia. 4. Diabetes. 5. History of drug use. 6. History of diabetes with complication of diabetic neuropathy, retinopathy, nephropathy. 7. History of gallstones, status post cholecystectomy. 8. History of appendectomy. 9. 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 ALLERGIES: PENICILLIN. PAST SURGICAL HISTORY: Appendectomy, multiple eye surgeries for diabetic retinopathy and cholecystec edison and a PermCath placement. FAMILY HISTORY: Significant for diabetes. SOCIAL HISTORY: Lives with the family. Denies any alcohol, any recreational drug use. MEDICATION: At home he has been takin. Coreg. 2. Procardia. 3. Lexapro. 4. Gabapentin. 5. [place]. 6. Lasix 40 b.i.d. 7. Calcium acetate with meals. 8. Protonix. The patient complains of left upper flank pain, left upper abdominal pain as well some nausea, vomiti ng, diarrhea. Denied any chills, any hematuria or dysuria. Denied any hematemesis, any melena or an y bright red blood per rectum. PHYSICAL EXAMINATION: VITAL SIGNS: Currently blood pressure is 189/105, heart rate 83, respirations 16, saturating 98%. GENERAL: The patient is awake, alert, oriented, appears to be in mild distress secondary to pain. HEENT: Left eye blindness. HEART: Regular rate and rhythm. LUNGS: Clear to auscultation bilaterally. ABDOMEN: Some tenderness present in the left upper quadrant, also on the back. Positive bowel sound s. No peritoneal signs. EXTREMITIES: Trace edema. The patient has a right upper chest wall Perm-A-Cath. DIAGNOSTIC DATA: Potassium of 5.3, BUN of 59, creatinine of 13.06, troponin 0.488, lipase 146. LABORATORY DATA: White count 12.6, hemoglobin 12.4. Chest x-ray shows no evidence of active cardiopulmonary disease. ASSESSMENT AND PLAN: This is a 32-year-old male with: 1. Chest pain. At this time, the patient had a positive troponin; however, EKG did not show any acu te significant abnormalities. Assess for coronary ischemia. 2. Left upper quadrant pain radiating to the back at this time. Lipase is normal. The patient also to have episodes of nausea, vomiting and diarrhea. The patient had a recent CAT scan done, which wa s negative. 3. Hypertension, uncontrolled. 4. Hyperkalemia. 5. Mild leukocytosis. 6. Diabetes. 7. Hypertension. 8. Hyperlipidemia. 9. Non-ST elevation myocardial infarction. 10. End-stage renal disease, on hemodialysis. 11. Diabetes with complication of diabetic nephropathy, retinopathy, neuropathy. PLAN: At this period of time, the patient will be admitted to telemetry. The patient is currently o n aspirin, heparin, statin, beta luis f. The patient will also receive a CT of the chest and hepari n has already been started. Cardiology consultation, Dr. Martinez, has already been obtained. The pat ient will likely need an angiogram. Currently, the patient is chest pain free. Dictated By: MIKE BIGGS/VIKTORIYA Conf#: [id number] DID#: [id number] CC: SHON MTZ MD;*End*
[2018-07-15] MEDS: GABAPENTIN 300 MG CAP PO SCH (20:21)
[2018-07-15] MEDS: ATORVASTATIN 40 MG TAB PO SCH (20:21)
[2018-07-15] MEDS ORDERED: METOPROLOL 100 MG TAB PO ONE (21:00)
[2018-07-15] MEDS: FUROSEMIDE 40 MG TAB PO SCH (21:24)
[2018-07-15] MEDS: HEPARIN 1000 UNITS/ML 10 ML INJ IV PRN (23:06)
[2018-07-16] VITALS (25 sets, daily range): BP systolic 137–197; BP diastolic 66–115; PULSE 65–77; RESP 16–22
[2018-07-16] MEDS: hydrALAzine 20 MG INJ IV PRN ×2 (00:52→20:24)
[2018-07-16] MEDS: morphine 2 MG INJ IV PRN ×4 (01:32→20:25)
[2018-07-16] MEDS: METOPROLOL 50 MG TAB PO SCH ×3 (05:57→22:26)
[2018-07-16] MEDS ORDERED: METOPROLOL 100 MG TAB PO ONE ×2 (06:00→07:30)
[2018-07-16] MEDS: ESCITALOPRAM 10 MG TAB PO SCH (10:29)
[2018-07-16] MEDS: ASPIRIN 81 MG TAB PO SCH (10:29)
[2018-07-16] MEDS: FUROSEMIDE 40 MG TAB PO SCH ×2 (10:30→22:27)
[2018-07-16] MEDS: FAMOTIDINE 20 MG TAB PO SCH (10:30)
[2018-07-16] MEDS: NIFEdipine (XL) 30 MG TAB PO SCH (10:30)
[2018-07-16] MEDS ORDERED: IVABRADINE HCL 5 MG TABLET PO STA (10:35)
[2018-07-16] MEDS ORDERED: METOPROLOL 100 MG TAB PO STA (12:16)
--- NOTE | 2018-07-16 12:21 | CONS ---
Assessment/Plan Assessment/Plan Hospital Course (Demo Recall) Elevated troponin concerning for non-ST elevation myocardial infarction Low normal left ventricular ejection fraction 50-55% End-stage renal disease hemodialysis Hypertension, uncontrolled Diabetes Vasculopathy -Patient presents with symptoms of left-sided discomfort including inspiratory chest pain, pain with palpation, sharp chest pain and pressure. -Troponins are elevated, ECG with no significant ischemic abnormalities -Continue aspirin therapy, statin therapy, beta-luis f, IV heparin -Patient has been pending CT coronary angiogram but given elevated heart rates, has not yet been performed, if heart rates unable to be controlled, would consider other means of ischemic workup Consultation Date/Type/Reason Admit Date/Time Jul 15, 2018 at 07:14 Initial Consult Date Type of Consult Cardiology Date/Time of Note DATE: 07/16/18 TIME: : 24 HR Interval Summary Free Text/Dictation Chest discomfort is improved. Denies shortness of breath. Did have hemodialysis this morning Exam/Review of Systems Vital Signs Vitals Vital Signs Date Temp Pulse Resp B/P (MAP) Pulse Ox O2 O2 Flow FiO2 Time Delivery Rate 07/16/18 97.8 71 22 189/103 Room Air 12:00 (131) 07/16/18 0 09:56 Intake and Output 07/15/18 07/15/18 07/16/18 1515:00 23:00 07:00 IntakeIntake Total 350 ml 428 ml OutputOutput Total 200 ml BalanceBalance 350 ml 228 ml Exam Constitutional: alert, oriented (No apparent distress) Head: normocephalic Respiratory: other (Coarse breath sounds bilaterally, no wheezing) Cardiovascular: regular rate and rhythm (S1-S2 heard) Gastrointestinal: soft, non-tender, bowel sounds Extremities: edema (Trace) Labs Result Diagram: 07/16/18 0507/[id number]/18525 Results 24hrs Laboratory Tests Test 07/15/18 14:06 07/15/18 17:27 07/15/18 20:12 07/15/18 20:42 Prothrombin Time 12.6 Prothrombin Time 1.0 Ratio INR International 0.93 Normalized Ratio Activated 35.1 H 35.6 H Partial Thromboplast Time Creatine Kinase 117 Creatine Kinase 5.6 Index Creatinine Kinase MB 6.57 H (Mass) Troponin I 1.980 *H Bedside Glucose 150 Test 07/15/18 23:56 07/16/18 05:26 Creatine Kinase 98 Creatine Kinase 6.2 Index Creatinine Kinase MB 6.04 H (Mass) Troponin I 1.760 *H 1.510 *H White Blood Count 7.3 # Red Blood Count 3.32 L Hemoglobin 10.4 L Hematocrit 31.5 L Mean Corpuscular 94.9 Volume Mean Corpuscular 31.3 Hemoglobin Mean Corpuscular 33.0 Hemoglobin Concent Red Cell 13.2 Distribution Width Platelet Count 173 Mean Platelet Volume 13.0 H Immature 0.300 Granulocytes % Neutrophils % 68.8 Lymphocytes % 18.5 Monocytes % 8.6 Eosinophils % 3.4 Basophils % 0.4 Nucleated Red Blood 0.0 Cells % Immature 0.020 Granulocytes # Neutrophils # 5.0 Lymphocytes # 1.4 Monocytes # 0.6 Eosinophils # 0.3 Basophils # 0.0 Nucleated Red Blood 0.0 Cells # Activated 70.0 H Partial Thromboplast Time Sodium Level 136 Potassium Level 5.2 H Chloride Level 94 L Carbon Dioxide Level 23 Anion Gap 19 H Blood Urea Nitrogen 65 H Creatinine 13.04 H Est Glomerular 4 L Filtrat Rate mL/min Glucose Level 160 Calcium Level 8.2 L Magnesium Level 2.4 Medications Medications Current Medications Nitroglycerin (Nitroglycerin (Sl Tab) 0.4 Mg) 1 tab Q5M UP TO 3 DOSES PRN SL .CHEST PAIN Last administered on 07/15/18at 06:40; Admin Dose 1 TAB; Start 07/15/18 at 06:30 IV Flush (NS 3 ml) 3 ml PER PROTOCOL IV ; Start 07/15/18 at 12:30 Ondansetron HCl (Zofran Inj) 4 mg Q6H PRN IV NAUSEA/VOMITING; Start 07/15/18 at 12:30 Acetaminophen/ Hydrocodone Bitart ([place] (5/325)) 1 tab Q6H PRN PO .MOD PAIN 4- 6; Start 07/15/18 at 12:30 Morphine Sulfate (morphine) 2 mg Q4H PRN IV .SEVERE PAIN 7-10 Last administered on 07/16/18at 10:35; Admin Dose 2 MG; Start 07/15/18 at 12:30 Docusate Sodium (Colace) 100 mg Q12H PRN PO .CONSTIPATION; Start 07/15/18 at 12:30 Famotidine (Pepcid) 20 mg DAILY PO Last administered on 07/16/18 10:30; Admin Dose 20 MG; Start 07/16/18 at 09:00 Heparin Sodium (Porcine) 250 ml @ 10 mls/hr Q24H IV Last administered on 07/15/18 14:57; Admin Dose 10 MLS/HR; Start 07/15/18 at 14:00 Aspirin (Aspirin) 81 mg DAILY PO Last administered on 07/16/18 10:29; Admin Dose 81 MG; Start 07/15/18 at 15:00 Atorvastatin Calcium (Lipitor) 40 mg HS PO Last administered on 07/15/18 20:21; Admin Dose 40 MG; Start 07/15/18 at 21:00 Metoprolol Tartrate (Lopressor) 50 mg Q8 PO Last administered on 07/15/18 15:31; Admin Dose 50 MG; Start 07/15/18 at 15:00 Escitalopram Oxalate (Lexapro) 10 mg DAILY PO Last administered on 07/16/18 10:29; Admin Dose 10 MG; Start 07/16/18 at 09:00 Furosemide (Lasix) 40 mg BID PO Last administered on 07/16/18 10:30; Admin Dose 40 MG; Start 07/15/18 at 21:00 Gabapentin (Neurontin) 300 mg QHS PO Last administered on 07/15/18 20:21; Admin Dose 300 MG; Start 07/15/18 at 21:00 Nifedipine (Procardia Xl) 30 mg DAILY PO Last administered on 07/16/18 10:30; Admin Dose 30 MG; Start 07/15/18 at 18:00 Hydralazine HCl (Apresoline) 10 mg Q4H PRN IV sbp>165 Last administered on 07/16/18 00:52; Admin Dose 10 MG; Start 07/15/18 at 23:00 Heparin Sodium (Porcine) (Heparin (1000 Units/ml)) 4,000 unit PRN PRN IV PENDING LAB VALUE Last administered on 07/15/18 23:06; Admin Dose 4,000 UNIT; Start 07/15/18 at 22:41 Metoprolol Tartrate (Lopressor) 100 mg ONCE STAT PO ; Start 07/16/18 at 12:16; Stop 07/16/18 at 12:17; Status Jeremias Mejía DO Jul 16, 2018 12:21
[2018-07-16] MEDS: ONDANSETRON 4 MG INJ IV PRN ×2 (12:47→20:24)
--- NOTE | 2018-07-16 12:58 | PN ---
Date/Time of Note Date/Time of Note DATE: 07/16/18 TIME: 12:58 Assessment/Plan VTE Prophylaxis Risk score (from Ns)>0 risk: 2 SCD applied (from Ns): No SCD contraindicated: low risk/ambulating Pharmacological prophylaxis: NA/contraindicated Pharm contraindication: low risk/ambulating Lines/Catheters [facility]from [facility] Urinary Cath still in place: No Assessment/Plan Hospital Course 32 y/o with 1. Chest pain. At this time, the patient had a positive troponin; however, EKG did not show any acute significant abnormalities. Elevated trop likely secondary to NSTEMI vs tropnin leak however Trop had been neg in past 2. Left upper quadrant pain radiating to the back at this time. Lipase is normal. The patient also to have episodes of nausea, vomiting and diarrhea. The patient had a recent CAT scan done, which was negative. now has diarrhoea/ vommiting? Colitis ?? 3. Hypertension, uncontrolled. 4. Hyperkalemia. 5. Mild leukocytosis. 6. Diabetes. 7. Hypertension. 8. Hyperlipidemia. 9. Non-ST elevation myocardial infarction. 10. End-stage renal disease, on hemodialysis. 11. Diabetes with complication of diabetic nephropathy, retinopathy, neuropathy. Plan - Pt was supposed to get CT scan yesterday> then HD however not done yesterday but had to receive HD today - ? Angiogram vs CT coronaries - diarrhoea qup - c diff - ? CT scan abdomen but had recent few days ago - spoke to GI about condition - cw mtp/nifedipine/lasix - cw heparin gtt - renally dose all meds Result Diagram: 07/16/18 0526 07/16/18 0526 Results 24hrs Laboratory Tests Test 07/15/18 14:06 07/15/18 17:27 07/15/18 20:12 07/15/18 20:42 Prothrombin Time 12.6 Prothrombin Time 1.0 Ratio INR International 0.93 Normalized Ratio Activated 35.1 H 35.6 H Partial Thromboplast Time Creatine Kinase 117 Creatine Kinase 5.6 Index Creatinine Kinase MB 6.57 H (Mass) Troponin I 1.980 *H Bedside Glucose 150 Test 07/15/18 23:56 07/16/18 05:26 Creatine Kinase 98 Creatine Kinase 6.2 Index Creatinine Kinase MB 6.04 H (Mass) Troponin I 1.760 *H 1.510 *H White Blood Count 7.3 # Red Blood Count 3.32 L Hemoglobin 10.4 L Hematocrit 31.5 L Mean Corpuscular 94.9 Volume Mean Corpuscular 31.3 Hemoglobin Mean Corpuscular 33.0 Hemoglobin Concent Red Cell 13.2 Distribution Width Platelet Count 173 Mean Platelet Volume 13.0 H Immature 0.300 Granulocytes % Neutrophils % 68.8 Lymphocytes % 18.5 Monocytes % 8.6 Eosinophils % 3.4 Basophils % 0.4 Nucleated Red Blood 0.0 Cells % Immature 0.020 Granulocytes # Neutrophils # 5.0 Lymphocytes # 1.4 Monocytes # 0.6 Eosinophils # 0.3 Basophils # 0.0 Nucleated Red Blood 0.0 Cells # Activated 70.0 H Partial Thromboplast Time Sodium Level 136 Potassium Level 5.2 H Chloride Level 94 L Carbon Dioxide Level 23 Anion Gap 19 H Blood Urea Nitrogen 65 H Creatinine 13.04 H Est Glomerular 4 L Filtrat Rate mL/min Glucose Level 160 Calcium Level 8.2 L Magnesium Level 2.4 Subjective 24 Hr Interval Summary Free Text/Dictation Pt had 6 bowel movement vommitted x2 time abdominal pain Exam/Review of Systems Exam Vitals Vital Signs Date Temp Pulse Resp B/P (MAP) Pulse Ox O2 O2 Flow FiO2 Time Delivery Rate 07/16/18 97.8 71 22 189/103 Room Air 12:00 (131) 07/16/18 0 09:56 Intake and Output 07/15/18 07/15/18 07/16/18 1515:00 23:00 07:00 IntakeIntake Total 350 ml 428 ml OutputOutput Total 200 ml BalanceBalance 350 ml 228 ml Exam GENERAL: The patient is awake, alert, oriented, appears to be in mild distress secondary to pain. HEENT: Left eye blindness. HEART: Regular rate and rhythm. LUNGS: Clear to auscultation bilaterally. ABDOMEN: Some tenderness present in the left upper quadrant, also on the back. Positive bowel sounds. No peritoneal signs. EXTREMITIES: Trace edema. The patient has a right upper chest wall Perm -A-Cath. Results Results 24hrs Laboratory Tests Test 07/15/18 14:06 07/15/18 17:27 07/15/18 20:12 07/15/18 20:42 Prothrombin Time 12.6 Prothrombin Time 1.0 Ratio INR International 0.93 Normalized Ratio Activated 35.1 H 35.6 H Partial Thromboplast Time Creatine Kinase 117 Creatine Kinase 5.6 Index Creatinine Kinase MB 6.57 H (Mass) Troponin I 1.980 *H Bedside Glucose 150 Test 07/15/18 23:56 07/16/18 05:26 Creatine Kinase 98 Creatine Kinase 6.2 Index Creatinine Kinase MB 6.04 H (Mass) Troponin I 1.760 *H 1.510 *H White Blood Count 7.3 # Red Blood Count 3.32 L Hemoglobin 10.4 L Hematocrit 31.5 L Mean Corpuscular 94.9 Volume Mean Corpuscular 31.3 Hemoglobin Mean Corpuscular 33.0 Hemoglobin Concent Red Cell 13.2 Distribution Width Platelet Count 173 Mean Platelet Volume 13.0 H Immature 0.300 Granulocytes % Neutrophils % 68.8 Lymphocytes % 18.5 Monocytes % 8.6 Eosinophils % 3.4 Basophils % 0.4 Nucleated Red Blood 0.0 Cells % Immature 0.020 Granulocytes # Neutrophils # 5.0 Lymphocytes # 1.4 Monocytes # 0.6 Eosinophils # 0.3 Basophils # 0.0 Nucleated Red Blood 0.0 Cells # Activated 70.0 H Partial Thromboplast Time Sodium Level 136 Potassium Level 5.2 H Chloride Level 94 L Carbon Dioxide Level 23 Anion Gap 19 H Blood Urea Nitrogen 65 H Creatinine 13.04 H Est Glomerular 4 L Filtrat Rate mL/min Glucose Level 160 Calcium Level 8.2 L Magnesium Level 2.4 Medications Medication Current Medications Nitroglycerin (Nitroglycerin (Sl Tab) 0.4 Mg) 1 tab Q5M UP TO 3 DOSES PRN SL .CHEST PAIN Last administered on 07/15/18at 06:40; Admin Dose 1 TAB; Start 07/15/18 at 06:30 IV Flush (NS 3 ml) 3 ml PER PROTOCOL IV ; Start 07/15/18 at 12:30 Acetaminophen/ Hydrocodone Bitart ([place] (5/325)) 1 tab Q6H PRN PO .MOD PAIN 4- 6; Start 07/15/18 at 12:30 Morphine Sulfate (morphine) 2 mg Q4H PRN IV .SEVERE PAIN 7-10 Last administered on 07/16/18at 10:35; Admin Dose 2 MG; Start 07/15/18 at 12:30 Docusate Sodium (Colace) 100 mg Q12H PRN PO .CONSTIPATION; Start 07/15/18 at 12:30 Famotidine (Pepcid) 20 mg DAILY PO Last administered on 07/16/18 10:30; Admin Dose 20 MG; Start 07/16/18 at 09:00 Heparin Sodium (Porcine) 250 ml @ 10 mls/hr Q24H IV Last administered on 07/15/18 14:57; Admin Dose 10 MLS/HR; Start 07/15/18 at 14:00 Aspirin (Aspirin) 81 mg DAILY PO Last administered on 07/16/18 10:29; Admin Dose 81 MG; Start 07/15/18 at 15:00 Atorvastatin Calcium (Lipitor) 40 mg HS PO Last administered on 07/15/18 20:21; Admin Dose 40 MG; Start 07/15/18 at 21:00 Metoprolol Tartrate (Lopressor) 50 mg Q8 PO Last administered on 07/15/18 15:31; Admin Dose 50 MG; Start 07/15/18 at 15:00 Escitalopram Oxalate (Lexapro) 10 mg DAILY PO Last administered on 07/16/18 10:29; Admin Dose 10 MG; Start 07/16/18 at 09:00 Furosemide (Lasix) 40 mg BID PO Last administered on 07/16/18 10:30; Admin Dose 40 MG; Start 07/15/18 at 21:00 Gabapentin (Neurontin) 300 mg QHS PO Last administered on 07/15/18 20:21; Admin Dose 300 MG; Start 07/15/18 at 21:00 Nifedipine (Procardia Xl) 30 mg DAILY PO Last administered on 07/16/18 10:30; Admin Dose 30 MG; Start 07/15/18 at 18:00 Hydralazine HCl (Apresoline) 10 mg Q4H PRN IV sbp>165 Last administered on 07/16/18 00:52; Admin Dose 10 MG; Start 07/15/18 at 23:00 Heparin Sodium (Porcine) (Heparin (1000 Units/ml)) 4,000 unit PRN PRN IV PENDING LAB VALUE Last administered on 07/15/18 23:06; Admin Dose 4,000 UNIT; Start 07/15/18 at 22:41 Ondansetron HCl (Zofran Inj) 4 mg Q4H PRN IV NAUSEA AND/OR VOMITING Last administered on 4/17/19at 12:47; Admin Dose 4 MG; Start 07/16/18 at 13:00 MIKE GIFFORD MD Jul 16, 2018 12:58
[2018-07-16] MEDS: HEPARIN 25000 UNITS/D5W 250 ML IV SCH ×2 (13:52→15:52)
[2018-07-16] MEDS ORDERED: METOPROLOL 5 MG INJ ONE (14:08)
[2018-07-16] MEDS ORDERED: SOD CHLORIDE 0.9% 100 ML ONE (14:13)
[2018-07-16] MEDS ORDERED: IOHEXOL 100 ML ONE (14:13)
[2018-07-16] MEDS ORDERED: IOHEXOL 350MG/ML 50 ML BTL ONE (14:13)
[2018-07-16] MEDS ORDERED: DILTIAZEM 25 MG INJ ONE (14:39)
[2018-07-16] MEDS: HEPARIN 1000 UNITS/ML 10 ML INJ IV PRN (15:48)
[2018-07-16] MEDS: SOD CHLORIDE 0.45% 1,000 ML IV SCH (17:14)
[2018-07-16] MEDS: ISOSORBIDE MONONITRATE(SR)30 MG TAB PO SCH (19:00)
--- NOTE | 2018-07-16 20:36 | CONS ---
DATE OF ADMISSION: 07/15/2018 DATE OF CONSULTATION: 07/16/2018 HISTORY OF PRESENT ILLNESS: A 32-year-old male with renal failure at [facility] got admitted with naus ea, vomiting and abdominal pain. The patient had a CAT scan done. I need to review that. He is patrick y sleepy and no information could be obtained from the patient. Case was discussed with the staff nu rse and I will dictate full notes later on. Dictated By: MAXIMO KUHN MD PJ/NTS Conf#: [id number] DID#: [id number] CC: HSON MTZ MD;*EndCC*
[2018-07-16] MEDS: metroNIDAZOLE 500 MG TAB PO SCH (22:26)
[2018-07-16] MEDS: ATORVASTATIN 40 MG TAB PO SCH (22:27)
[2018-07-16] MEDS: GABAPENTIN 300 MG CAP PO SCH (22:27)
[2018-07-17] VITALS (12 sets, daily range): BP systolic 128–180; BP diastolic 75–109; PULSE 60–75; RESP 18–20
[2018-07-17] MEDS: morphine 2 MG INJ IV PRN ×4 (03:59→20:41)
[2018-07-17] MEDS: METOPROLOL 50 MG TAB PO SCH ×3 (06:10→22:02)
[2018-07-17] MEDS: metroNIDAZOLE 500 MG TAB PO SCH ×3 (06:10→22:00)
[2018-07-17] MEDS: ESCITALOPRAM 10 MG TAB PO SCH (08:32)
[2018-07-17] MEDS: NIFEdipine (XL) 30 MG TAB PO SCH (08:32)
[2018-07-17] MEDS: FUROSEMIDE 40 MG TAB PO SCH ×2 (08:33→20:40)
[2018-07-17] MEDS: FAMOTIDINE 20 MG TAB PO SCH (08:33)
[2018-07-17] MEDS: ISOSORBIDE MONONITRATE(SR)30 MG TAB PO SCH (08:33)
[2018-07-17] MEDS: ASPIRIN 81 MG TAB PO SCH (08:33)
[2018-07-17] MEDS: SOD CHLORIDE 0.45% 1,000 ML IV SCH (14:00)
--- NOTE | 2018-07-17 15:26 | PN ---
Date/Time of Note Date/Time of Note DATE: 07/17/18 TIME: 15:23 Assessment/Plan VTE Prophylaxis Risk score (from Ns)>0 risk: 2 SCD applied (from Ns): No SCD contraindicated: low risk/ambulating Pharmacological prophylaxis: NA/contraindicated Pharm contraindication: low risk/ambulating Lines/Catheters IV Catheter Type (from [facility]): [facility] Urinary Cath still in place: No Assessment/Plan Hospital Course 32 y/o with 1. Chest pain. At this time, the patient had a positive troponin; however, EKG did not show any acute significant abnormalities. Elevated trop likely secondary to NSTEMI vs tropnin leak however Trop had been neg in past troponin leak 2. Left upper quadrant pain radiating to the back at this time. Lipase is normal. The patient also to have episodes of nausea, vomiting and diarrhea. The patient had a recent CAT scan done, which was negative. now has diarrhoea/ vommiting? Colitis ?? 3. Hypertension, uncontrolled. 4. Hyperkalemia. 5. Mild leukocytosis. 6. Diabetes. 7. Hypertension. 8. Hyperlipidemia. 9. Non-ST elevation myocardial infarction. 10. End-stage renal disease, on hemodialysis. 11. Diabetes with complication of diabetic nephropathy, retinopathy, neuropathy. Plan -CT angiogram mild to moderate plaque in LAD but no intervention needed per Dr. Martinez, CT of the chest is also negative -Advance diet -Possible ERCP by GI -C. difficile negative -HD tomorrow - cw mtp/nifedipine/lasix - dc heparin gtt - renally dose all meds Result Diagram: 07/16/18 0526 07/16/18 0526 Results 24hrs Laboratory Tests Test 07/16/18 22:44 Activated Partial Thromboplast Time 35.6 H Subjective 24 Hr Interval Summary Free Text/Dictation Feels a lot better wants to eat CT angios reviewed Exam/Review of Systems Exam Vitals Vital Signs Date Temp Pulse Resp B/P (MAP) Pulse Ox O2 O2 Flow FiO2 Time Delivery Rate 07/17/18 68 12:27 07/17/18 98.2 18 143/78 95 11:53 (99) 07/17/18 Room Air 03:53 Intake and Output 07/16/18 07/16/18 07/17/18 1515:00 23:00 07:00 IntakeIntake Total 320 ml 510 ml OutputOutput Total 200 ml BalanceBalance 320 ml 310 ml Exam GENERAL: The patient is awake, alert, oriented, appears to be in mild distress secondary to pain. HEENT: Left eye blindness. HEART: Regular rate and rhythm. LUNGS: Clear to auscultation bilaterally. ABDOMEN: Some tenderness present in the left upper quadrant, also on the back. Positive bowel sounds. No peritoneal signs. EXTREMITIES: Trace edema. The patient has a right upper chest wall Perm-A-Cath. Results Results 24hrs Laboratory Tests Test 07/16/18 22:44 Activated Partial Thromboplast Time 35.6 H Medications Medication Current Medications Nitroglycerin (Nitroglycerin (Sl Tab) 0.4 Mg) 1 tab Q5M UP TO 3 DOSES PRN SL .CHEST PAIN Last administered on 07/15/18at 06:40; Admin Dose 1 TAB; Start 07/15/18 at 06:30 IV Flush (NS 3 ml) 3 ml PER PROTOCOL IV ; Start 07/15/18 at 12:30 Acetaminophen/ Hydrocodone Bitart ([place] (5/325)) 1 tab Q6H PRN PO .MOD PAIN 4- 6; Start 07/15/18 at 12:30 Morphine Sulfate (morphine) 2 mg Q4H PRN IV .SEVERE PAIN 7-10 Last administered on 07/17/18at 14:16; Admin Dose 2 MG; Start 07/15/18 at 12:30 Docusate Sodium (Colace) 100 mg Q12H PRN PO .CONSTIPATION; Start 07/15/18 at 12:30 Famotidine (Pepcid) 20 mg DAILY PO Last administered on 07/17/18at 08:33; Admin Dose 20 MG; Start 07/16/18 at 09:00 Aspirin (Aspirin) 81 mg DAILY PO Last administered on 07/17/18at 08:33; Admin Dose 81 MG; Start 07/15/18 at 15:00 Atorvastatin Calcium (Lipitor) 40 mg HS PO Last administered on 07/16/18at 22:27; Admin Dose 40 MG; Start 07/15/18 at 21:00 Metoprolol Tartrate (Lopressor) 50 mg Q8 PO Last administered on 07/17/18at 14:46; Admin Dose 50 MG; Start 07/15/18 at 15:00 Escitalopram Oxalate (Lexapro) 10 mg DAILY PO Last administered on 07/17/18 08:32; Admin Dose 10 MG; Start 07/16/18 at 09:00 Furosemide (Lasix) 40 mg BID PO Last administered on 07/17/18 08:33; Admin Dose 40 MG; Start 07/15/18 at 21:00 Gabapentin (Neurontin) 300 mg QHS PO Last administered on 07/16/18 22:27; Admin Dose 300 MG; Start 07/15/18 at 21:00 Nifedipine (Procardia Xl) 30 mg DAILY PO Last administered on 07/17/18 08:32; Admin Dose 30 MG; Start 07/15/18 at 18:00 Hydralazine HCl (Apresoline) 10 mg Q4H PRN IV sbp>165 Last administered on 07/16/18 20:24; Admin Dose 10 MG; Start 07/15/18 at 23:00 Ondansetron HCl (Zofran Inj) 4 mg Q4H PRN IV NAUSEA AND/OR VOMITING Last administered on 07/16/18 20:24; Admin Dose 4 MG; Start 07/16/18 at 13:00 Sodium Chloride 1,000 ml @ 30 mls/hr Q24H IV Last administered on 07/16/18 17:14; Admin Dose 30 MLS/HR; Start 07/16/18 at 14:00 Metronidazole (Flagyl) 500 mg Q8 PO Last administered on 07/17/18 14:45; Admin Dose 500 MG; Start 07/16/18 at 22:00 Isosorbide Mononitrate (Imdur) 30 mg DAILY PO Last administered on 07/17/18 08:33; Admin Dose 30 MG; Start 07/16/18 at 19:00 MIKE GIFFORD MD Jul 17, 2018 15:25
--- NOTE | 2018-07-17 16:30 | CONS ---
Assessment/Plan Assessment/Plan Hospital Course (Demo Recall) Chest, abdominal and flank pain Elevated troponin-trending down Low normal left ventricular ejection fraction 50-55% End-stage renal disease hemodialysis Hypertension, uncontrolled Diabetes Vasculopathy -CT coronary angiogram with 50% plaque in LAD, otherwise no obstructive coronary artery disease. -CT pulmonary angiogram with no evidence of pulmonary emboli -Patient's complaints are of chest discomfort with inspiration as well as abdominal pain, nausea and diarrhea -Continue aspirin and statin therapy, beta-luis f, blood pressure control -Fluid management via hemodialysis as per nephrology Consultation Date/Type/Reason Admit Date/Time Jul 15, 2018 at 07:14 Initial Consult Date Type of Consult Cardiology Date/Time of Note DATE: 07/17/18 TIME: 16:27 24 HR Interval Summary Free Text/Dictation Denies chest pain, shortness of breath. Complaining of left flank pain and abdominal pain and diarrhea. Exam/Review of Systems Vital Signs Vitals Vital Signs Date Temp Pulse Resp B/P (MAP) Pulse Ox O2 O2 Flow FiO2 Time Delivery Rate 07/17/18 98.2 67 19 147/82 96 15:28 (103) 07/17/18 Room Air 03:53 Intake and Output 07/16/18 07/16/18 07/17/18 1515:00 23:00 07:00 IntakeIntake Total 320 ml 510 ml OutputOutput Total 200 ml BalanceBalance 320 ml 310 ml Exam Constitutional: alert (Following commands, no apparent distress) Head: normocephalic Respiratory: other (Coarse breath sounds bilaterally, no wheezing) Cardiovascular: regular rate and rhythm (S1-S2 heard) Gastrointestinal: soft, bowel sounds, other (Discomfort with palpation) Extremities: edema Labs Result Diagram: 07/16/18 0526 07/16/18 0526 Results 24hrs Laboratory Tests Test 07/16/18 22:44 Activated Partial Thromboplast Time 35.6 H Medications Medications Current Medications Nitroglycerin (Nitroglycerin (Sl Tab) 0.4 Mg) 1 tab Q5M UP TO 3 DOSES PRN SL .CHEST PAIN Last administered on 07/15/18at 06:40; Admin Dose 1 TAB; Start 07/15/18 at 06:30 IV Flush (NS 3 ml) 3 ml PER PROTOCOL IV ; Start 07/15/18 at 12:30 Acetaminophen/ Hydrocodone Bitart ([place] (5/325)) 1 tab Q6H PRN PO .MOD PAIN 4- 6; Start 07/15/18 at 12:30 Morphine Sulfate (morphine) 2 mg Q4H PRN IV .SEVERE PAIN 7-10 Last administered on 07/17/18 14:16; Admin Dose 2 MG; Start 07/15/18 at 12:30 Docusate Sodium (Colace) 100 mg Q12H PRN PO .CONSTIPATION; Start 07/15/18 at 12:30 Famotidine (Pepcid) 20 mg DAILY PO Last administered on 07/17/18 08:33; Admin Dose 20 MG; Start 07/16/18 at 09:00 Aspirin (Aspirin) 81 mg DAILY PO Last administered on 07/17/18 08:33; Admin Dose 81 MG; Start 07/15/18 at 15:00 Atorvastatin Calcium (Lipitor) 40 mg HS PO Last administered on 07/16/18 22:27; Admin Dose 40 MG; Start 07/15/18 at 21:00 Metoprolol Tartrate (Lopressor) 50 mg Q8 PO Last administered on 07/17/18 14:46; Admin Dose 50 MG; Start 07/15/18 at 15:00 Escitalopram Oxalate (Lexapro) 10 mg DAILY PO Last administered on 07/17/18 08:32; Admin Dose 10 MG; Start 07/16/18 at 09:00 Furosemide (Lasix) 40 mg BID PO Last administered on 07/17/18 08:33; Admin Dose 40 MG; Start 07/15/18 at 21:00 Gabapentin (Neurontin) 300 mg QHS PO Last administered on 07/16/18 22:27; Admin Dose 300 MG; Start 07/15/18 at 21:00 Nifedipine (Procardia Xl) 30 mg DAILY PO Last administered on 07/17/18 08:32; Admin Dose 30 MG; Start 07/15/18 at 18:00 Hydralazine HCl (Apresoline) 10 mg Q4H PRN IV sbp>165 Last administered on 07/16/18 20:24; Admin Dose 10 MG; Start 07/15/18 at 23:00 Ondansetron HCl (Zofran Inj) 4 mg Q4H PRN IV NAUSEA AND/OR VOMITING Last a dministered on 4/17/19at 20:24; Admin Dose 4 MG; Start 07/16/18 at 13:00 Metronidazole (Flagyl) 500 mg Q8 PO Last administered on 07/17/18at 14:45; Admin Dose 500 MG; Start 07/16/18 at 22:00 Isosorbide Mononitrate (Imdur) 30 mg DAILY PO Last administered on 07/17/18at 08:33; Admin Dose 30 MG; Start 07/16/18 at 19:00 Jeremias Martinez DO Jul 17, 2018 16:30
--- NOTE | 2018-07-17 19:48 | CONS ---
DATE OF ADMISSION: 07/15/2018 DATE OF CONSULTATION: TYPE OF CONSULTATION: Gastroenterology. HISTORY OF PRESENT ILLNESS: The patient is a 32-year-old male with end-stage renal disease on hemodi alysis, diabetes mellitus, hypertension, again presented to the emergency room complaining of chest p ain and also left upper quadrant pain and also pain in the area. The patient had a CT angiogra m done which was negative. Coronary blockage was seen 30% to 40%, not significant. GI consult was c alled in for persistent same kind of pain and he also has nausea and vomiting in the past. PAST MEDICAL HISTORY: Please refer to the old chart for detail. ALLERGIES: PENICILLIN. MEDICATIONS: Reviewed. Besides, he is on Waves. PHYSICAL EXAMINATION: GENERAL: Moderately built, nourished, not in distress. VITAL SIGNS: Stable. HEENT: Unremarkable. NECK: Supple. No thyromegaly, no lymphadenopathy. CARDIOVASCULAR: No murmur, gallop or click. LUNGS: Clear. ABDOMEN: Benign. EXTREMITIES: No edema. CENTRAL NERVOUS SYSTEM: Grossly within normal limits DIAGNOSTIC DATA: I reviewed his previous MRI report. The bile duct was mildly dilated. No evidence of choledocholithiasis. For some reason, he has perinephric edema bilaterally. IMPRESSION: 1. Chest pain with elevated troponin, may be due to the troponin leak. 2. Left upper quadrant pain radiating to back. 3. Hypertension. 4. Hyperkalemia. 5. Diabetes mellitus. 6. Hypertension. 7. End-stage renal disease. 8. Diabetes mellitus. PLAN: At this point, continue present care. I discussed with the account strategist. If patient is clear ed, then may proceed with EGD and ERCP. Dictated By: MAXIMO KUHN MD PJ/NTS Conf#: [id number] DID#: [id number] CC: SHON MTZ MD;*EndCC*
[2018-07-17] MEDS: GABAPENTIN 300 MG CAP PO SCH (20:39)
[2018-07-17] MEDS: ATORVASTATIN 40 MG TAB PO SCH (20:39)
[2018-07-17] MEDS: ONDANSETRON 4 MG INJ IV PRN (20:47)
[2018-07-17] MEDS: hydrALAzine 20 MG INJ IV PRN (20:47)
[2018-07-18] VITALS (26 sets, daily range): BP systolic 136–180; BP diastolic 74–102; PULSE 58–80; RESP 18–20
[2018-07-18] MEDS: morphine 2 MG INJ IV PRN ×5 (01:23→19:48)
[2018-07-18] MEDS: ONDANSETRON 4 MG INJ IV PRN ×2 (01:23→11:04)
[2018-07-18] MEDS: metroNIDAZOLE 500 MG TAB PO SCH ×3 (05:08→21:17)
[2018-07-18] MEDS: METOPROLOL 50 MG TAB PO SCH ×3 (05:09→21:18)
--- NOTE | 2018-07-18 07:50 | CONS ---
Assessment/Plan Assessment/Plan Assessment/Plan (Daily) Chest, abdominal and flank pain Elevated troponin-trending down Low normal left ventricular ejection fraction 50-55% End-stage renal disease hemodialysis Hypertension, uncontrolled Diabetes Vasculopathy -CT coronary angiogram with 50% plaque in LAD, otherwise no obstructive coronary artery disease. -CT pulmonary angiogram with no evidence of pulmonary emboli -Patient's complaints are of chest discomfort with inspiration as well as abdominal pain, nausea and diarrhea -Continue aspirin and statin therapy, beta-luis f, blood pressure control - will increase nifedipine today -Fluid management via hemodialysis as per nephrology Consultation Date/Type/Reason Admit Date/Time Jul 15, 2018 at 07:14 Initial Consult Date Type of Consult Cardiology Date/Time of Note DATE: 07/18/18 TIME: 07:49 24 HR Interval Summary Free Text/Dictation The patient with no chest pain Exam/Review of Systems Vital Signs Vitals Vital Signs Date Temp Pulse Resp B/P (MAP) Pulse Ox O2 O2 Flow FiO2 Time Delivery Rate 07/18/18 98.1 66 19 162/95 95 07:21 (117) 07/18/18 Room Air 04:24 Intake and Output 07/17/18 07/17/18 07/18/18 1515:00 23:00 07:00 IntakeIntake Total 240 ml 450 ml OutputOutput Total 400 ml BalanceBalance 240 ml 50 ml Labs Result Diagram: 07/16/18 0526 07/18/18 0534 Results 24hrs Laboratory Tests Test 07/18/18 05:34 Sodium Level 136 Potassium Level 6.0 H Chloride Level 97 Carbon Dioxide Level 24 Anion Gap 15 H Blood Urea Nitrogen 55 H Creatinine 12.63 H Est Glomerular Filtrat Rate mL/min 5 L Glucose Level 101 Calcium Level 8.8 Lipase 56 Medications Medications Current Medications Nitroglycerin (Nitroglycerin (Sl Tab) 0.4 Mg) 1 tab Q5M UP TO 3 DOSES PRN SL .CHEST PAIN Last administered on 07/15/18at 06:40; Admin Dose 1 TAB; Start 07/15/18 at 06:30 IV Flush (NS 3 ml) 3 ml PER PROTOCOL IV ; Start 07/15/18 at 12:30 Acetaminophen/ Hydrocodone Bitart ([place] (5/325)) 1 tab Q6H PRN PO .MOD PAIN 4- 6; Start 07/15/18 at 12:30 Morphine Sulfate (morphine) 2 mg Q4H PRN IV .SEVERE PAIN 7-10 Last administered on 07/18/18 05:14; Admin Dose 2 MG; Start 07/15/18 at 12:30 Docusate Sodium (Colace) 100 mg Q12H PRN PO .CONSTIPATION; Start 07/15/18 at 12:30 Famotidine (Pepcid) 20 mg DAILY PO Last administered on 07/17/18 08:33; Admin Dose 20 MG; Start 07/16/18 at 09:00 Aspirin (Aspirin) 81 mg DAILY PO Last administered on 07/17/18 08:33; Admin Dose 81 MG; Start 07/15/18 at 15:00 Atorvastatin Calcium (Lipitor) 40 mg HS PO Last administered on 07/17/18 20:39; Admin Dose 40 MG; Start 07/15/18 at 21:00 Metoprolol Tartrate (Lopressor) 50 mg Q8 PO Last administered on 07/18/18 05:09; Admin Dose 50 MG; Start 07/15/18 at 15:00 Escitalopram Oxalate (Lexapro) 10 mg DAILY PO Last administered on 07/17/18 08:32; Admin Dose 10 MG; Start 07/16/18 at 09:00 Furosemide (Lasix) 40 mg BID PO Last administered on 07/17/18 20:40; Admin Dose 40 MG; Start 07/15/18 at 21:00 Gabapentin (Neurontin) 300 mg QHS PO Last administered on 07/17/18 20:39; Admin Dose 300 MG; Start 07/15/18 at 21:00 Nifedipine (Procardia Xl) 30 mg DAILY PO Last administered on 07/17/18 08:32; Admin Dose 30 MG; Start 07/15/18 at 18:00 Hydralazine HCl (Apresoline) 10 mg Q4H PRN IV sbp>165 Last administered on 07/17/18 20:47; Admin Dose 10 MG; Start 07/15/18 at 23:00 Ondansetron HCl (Zofran Inj) 4 mg Q4H PRN IV NAUSEA AND/OR VOMITING Last administered on 07/18/18 01:23; Admin Dose 4 MG; Start 07/16/18 at 13:00 Metronidazole (Flagyl) 500 mg Q8 PO Last administered on 4/19/19at 05:08; Admin Dose 500 MG; Start 07/16/18 at 22:00 Isosorbide Mononitrate (Imdur) 30 mg DAILY PO Last administered on 07/17/18at 08:33; Admin Dose 30 MG; Start 07/16/18 at 19:00 DESIREE KOHLI MD Jul 18, 2018 07:50
[2018-07-18] MEDS: ESCITALOPRAM 10 MG TAB PO SCH (08:43)
[2018-07-18] MEDS: ISOSORBIDE MONONITRATE(SR)30 MG TAB PO SCH (08:44)
[2018-07-18] MEDS: FUROSEMIDE 40 MG TAB PO SCH ×2 (08:44→21:18)
[2018-07-18] MEDS: FAMOTIDINE 20 MG TAB PO SCH (08:44)
[2018-07-18] MEDS: NIFEdipine (XL) 60 MG TAB PO SCH (08:45)
[2018-07-18] MEDS: ASPIRIN 81 MG TAB PO SCH (08:45)
--- NOTE | 2018-07-18 10:55 | CONS ---
Assessment/Plan Assessment/Plan Assessment/Plan (Daily) IMPRESSION: 1. Chest pain with elevated troponin, may be due to the troponin leak. 2. Left upper quadrant pain radiating to back. 3. Hypertension. 4. Hyperkalemia. 5. Diabetes mellitus. 6. Hypertension. 7. End-stage renal disease. 8. Diabetes mellitus. Plan EGD once the potassium is corrected Consultation Date/Type/Reason Admit Date/Time Jul 15, 2018 at 07:14 Initial Consult Date Date/Time of Note DATE: 07/18/18 TIME: 10:54 24 HR Interval Summary Constitutional: improved Exam/Review of Systems Exam Vitals Vital Signs Date Temp Pulse Resp B/P (MAP) Pulse Ox O2 O2 Flow FiO2 Time Delivery Rate 07/18/18 64 08:11 07/18/18 98.1 19 162/95 95 07:21 (117) 07/18/18 Room Air 04:24 Intake and Output 07/17/18 07/17/18 07/18/18 1515:00 23:00 07:00 IntakeIntake Total 240 ml 450 ml OutputOutput Total 400 ml BalanceBalance 240 ml 50 ml Constitutional: alert, oriented, well developed Psych: no complaints, nl mood/affect Head: normocephalic, atraumatic Eyes: nl conjunctiva, EOMI, nl lids, nl sclera, PERRL ENMT: nl external ears & nose, nl lips & teeth, nl nasal mucosa & septum Neck: supple, non-tender Respiratory: clear to auscultation, normal air movement Cardiovascular: regular rate and rhythm, nl pulses Gastrointestinal: soft, nl liver, spleen, non-tender Musculoskeletal: nl extremities to inspection, nl gait and stance Extremities: normal pulses Neurological: LOCAL COORDINATOR II-XII intact, nl mental status, nl speech, nl strength Skin: nl turgor; No rash or lesions Lymph: nl lymph nodes Results Result Diagram: 07/16/18 0526 07/18/18 0534 Results 24hrs Laboratory Tests Test 07/18/18 05:34 Sodium Level 136 Potassium Level 6.0 H Chloride Level 97 Carbon Dioxide Level 24 Anion Gap 15 H Blood Urea Nitrogen 55 H Creatinine 12.63 H Est Glomerular Filtrat Rate mL/min 5 L Glucose Level 101 Calcium Level 8.8 Lipase 56 Medications Medication Current Medications Nitroglycerin (Nitroglycerin (Sl Tab) 0.4 Mg) 1 tab Q5M UP TO 3 DOSES PRN SL .CHEST PAIN Last administered on 07/15/18 06:40; Admin Dose 1 TAB; Start 07/15/18 at 06:30 IV Flush (NS 3 ml) 3 ml PER PROTOCOL IV ; Start 07/15/18 at 12:30 Acetaminophen/ Hydrocodone Bitart ([place] (5/325)) 1 tab Q6H PRN PO .MOD PAIN 4- 6; Start 07/15/18 at 12:30 Morphine Sulfate (morphine) 2 mg Q4H PRN IV .SEVERE PAIN 7-10 Last administered on 07/18/18 05:14; Admin Dose 2 MG; Start 07/15/18 at 12:30 Docusate Sodium (Colace) 100 mg Q12H PRN PO .CONSTIPATION; Start 07/15/18 at 12:30 Famotidine (Pepcid) 20 mg DAILY PO Last administered on 07/18/18 08:44; Admin Dose 20 MG; Start 07/16/18 at 09:00 Aspirin (Aspirin) 81 mg DAILY PO Last administered on 07/18/18 08:45; Admin Dose 81 MG; Start 07/15/18 at 15:00 Atorvastatin Calcium (Lipitor) 40 mg HS PO Last administered on 07/17/18 20:39; Admin Dose 40 MG; Start 07/15/18 at 21:00 Metoprolol Tartrate (Lopressor) 50 mg Q8 PO Last administered on 07/18/18 05:09; Admin Dose 50 MG; Start 07/15/18 at 15:00 Escitalopram Oxalate (Lexapro) 10 mg DAILY PO Last administered on 07/18/18 08:43; Admin Dose 10 MG; Start 07/16/18 at 09:00 Furosemide (Lasix) 40 mg BID PO Last administered on 07/18/18 08:44; Admin Dose 40 MG; Start 07/15/18 at 21:00 Gabapentin (Neurontin) 300 mg QHS PO Last administered on 07/17/18 20:39; Admin Dose 300 MG; Start 07/15/18 at 21:00 Hydralazine HCl (Apresoline) 10 mg Q4H PRN IV sbp>165 Last administered on 07/17/18 20:47; Admin Dose 10 MG; Start 07/15/18 at 23:00 Ondansetron HCl (Zofran Inj) 4 mg Q4H PRN IV NAUSEA AND/OR VOMITING Last administered on 07/18/18at 01:23; Admin Dose 4 MG; Start 07/16/18 at 13:00 Metronidazole (Flagyl) 500 mg Q8 PO Last administered on 07/18/18at 05:08; Admin Dose 500 MG; Start 07/16/18 at 22:00 Isosorbide Mononitrate (Imdur) 30 mg DAILY PO Last administered on 07/18/18at 08:44; Admin Dose 30 MG; Start 07/16/18 at 19:00 Nifedipine (Procardia Xl) 60 mg DAILY PO Last administered on 07/18/18at 08:45; Admin Dose 60 MG; Start 07/18/18 at 09:00 MAXIMO KUHN MD Jul 18, 2018 10:55
--- NOTE | 2018-07-18 11:04 | PN ---
Date/Time of Note Date/Time of Note DATE: 07/18/18 TIME: 11:01 Assessment/Plan VTE Prophylaxis Risk score (from Ns)>0 risk: 2 SCD applied (from Ns): No SCD contraindicated: low risk/ambulating Pharmacological prophylaxis: heparin Lines/Catheters IV [facility] [place] Urinary Cath still in place: No Assessment/Plan Hospital Course 1. Chest pain. At this time, the patient had a positive troponin; however, EKG did not show any acute significant abnormalities. Elevated trop likely secondary to NSTEMI vs troponin leak however Trop had been neg in past troponin leak. 2. Left upper quadrant pain radiating to the back at this time. Lipase is normal. The patient also to have episodes of nausea, vomiting and diarrhea. The patient had a recent CT scan done, which was negative. now has diarrhoea/ vomiting? Colitis ?? 3. Hypertension, uncontrolled. 4. Hyperkalemia. 5. Mild leukocytosis. 6. Diabetes. 7. Hypertension. 8. Hyperlipidemia. 9. Non-ST elevation myocardial infarction. 10. End-stage renal disease, on hemodialysis. 11. Diabetes with complication of diabetic nephropathy, retinopathy, neuropathy. 12. Hx of noncompliance 13. Overweight 14. Anemia of chronic disease. Assessment/Plan -CT angiogram mild to moderate plaque in LAD but no intervention needed per Dr. Martinez, CT of the chest is also negative -unable to advanced diet, pt is vomit after clear liquid diet -Possible ERCP by GI, EGD today -C. difficile negative -HD today - cw mtp/nifedipine/lasix - renally dose all meds -DVT proph. strart Heparin 5000 units BID -GI proph. Famotidine BID Result Diagram: 07/16/18 0526 07/18/18 0534 Results 24hrs Laboratory Tests Test 07/18/18 05:34 Sodium Level 136 Potassium Level 6.0 H Chloride Level 97 Carbon Dioxide Level 24 Anion Gap 15 H Blood Urea Nitrogen 55 H Creatinine 12.63 H Est Glomerular Filtrat Rate mL/min 5 L Glucose Level 101 Calcium Level 8.8 Lipase 56 Subjective 24 Hr Interval Summary Cardiovascular: chest pain; No no complaints, No edema, No lightheadedness, No orthopenea, No palpitations, No paroxysmal nocturnal dyspnea, No other Gastrointestinal: no complaints, pain, blood, constipation, decreased appetite, diarrhea, flatus, nausea, passing stool, vomiting (yesterday), other Exam/Review of Systems Exam Vitals Vital Signs Date Temp Pulse Resp B/P (MAP) Pulse Ox O2 O2 Flow FiO2 Time Delivery Rate 07/18/18 64 08:11 07/18/18 98.1 19 162/95 95 07:21 (117) 07/18/18 Room Air 04:24 Intake and Output 07/17/18 07/17/18 07/18/18 1515:00 23:00 07:00 IntakeIntake Total 240 ml 450 ml OutputOutput Total 400 ml BalanceBalance 240 ml 50 ml Exam right chest Permcath Constitutional: alert, oriented Head: normocephalic Neck: supple Respiratory: diminished breath sounds Cardiovascular: regular rate and rhythm Gastrointestinal: soft, distended; No nl liver, spleen, No non-tender, No ascites, No bowel sounds, No firm, No hepatomegaly, No mass, No rebound or guarding, No splenomegaly, No surgical scars, No tender, No other Musculoskeletal: nl extremities to inspection Extremities: normal pulses Results Results 24hrs Laboratory Tests Test 07/18/18 05:34 Sodium Level 136 Potassium Level 6.0 H Chloride Level 97 Carbon Dioxide Level 24 Anion Gap 15 H Blood Urea Nitrogen 55 H Creatinine 12.63 H Est Glomerular Filtrat Rate mL/min 5 L Glucose Level 101 Calcium Level 8.8 Lipase 56 Medications Medication Current Medications Nitroglycerin (Nitroglycerin (Sl Tab) 0.4 Mg) 1 tab Q5M UP TO 3 DOSES PRN SL .CHEST PAIN Last administered on 07/15/18at 06:40; Admin Dose 1 TAB; Start 07/15/18 at 06:30 IV Flush (NS 3 ml) 3 ml PER PROTOCOL IV ; Start 07/15/18 at 12:30 Acetaminophen/ Hydrocodone Bitart ([place] (5/325)) 1 tab Q6H PRN PO .MOD PAIN 4- 6; Start 07/15/18 at 12:30 Morphine Sulfate (morphine) 2 mg Q4H PRN IV .SEVERE PAIN 7-10 Last administered on 07/18/18at 05:14; Admin Dose 2 MG; Start 07/15/18 at 12:30 Docusate Sodium (Colace) 100 mg Q12H PRN PO .CONSTIPATION; Start 07/15/18 at 12:30 Famotidine (Pepcid) 20 mg DAILY PO Last administered on 07/18/18 08:44; Admin Dose 20 MG; Start 07/16/18 at 09:00 Aspirin (Aspirin) 81 mg DAILY PO Last administered on 07/18/18 08:45; Admin Dose 81 MG; Start 07/15/18 at 15:00 Atorvastatin Calcium (Lipitor) 40 mg HS PO Last administered on 07/17/18 20:39; Admin Dose 40 MG; Start 07/15/18 at 21:00 Metoprolol Tartrate (Lopressor) 50 mg Q8 PO Last administered on 07/18/18 05:09; Admin Dose 50 MG; Start 07/15/18 at 15:00 Escitalopram Oxalate (Lexapro) 10 mg DAILY PO Last administered on 07/18/18 08:43; Admin Dose 10 MG; Start 07/16/18 at 09:00 Furosemide (Lasix) 40 mg BID PO Last administered on 07/18/18 08:44; Admin Dose 40 MG; Start 07/15/18 at 21:00 Gabapentin (Neurontin) 300 mg QHS PO Last administered on 07/17/18 20:39; Admin Dose 300 MG; Start 07/15/18 at 21:00 Hydralazine HCl (Apresoline) 10 mg Q4H PRN IV sbp>165 Last administered on 07/17/18 20:47; Admin Dose 10 MG; Start 07/15/18 at 23:00 Ondansetron HCl (Zofran Inj) 4 mg Q4H PRN IV NAUSEA AND/OR VOMITING Last admini stered on 07/18/18 01:23; Admin Dose 4 MG; Start 07/16/18 at 13:00 Metronidazole (Flagyl) 500 mg Q8 PO Last administered on 07/18/18 05:08; Admin Dose 500 MG; Start 07/16/18 at 22:00 Isosorbide Mononitrate (Imdur) 30 mg DAILY PO Last administered on 07/18/18 08:44; Admin Dose 30 MG; Start 07/16/18 at 19:00 Nifedipine (Procardia Xl) 60 mg DAILY PO Last administered on 07/18/18 08:45; Admin Dose 60 MG; Start 07/18/18 at 09:00 CALLY PERKINS Jul 18, 2018 11:04
[2018-07-18] MEDS: HEPARIN 5,000 UNIT/1 ML VIAL SC SCH ×2 (13:00→21:30)
[2018-07-18] MEDS ORDERED: HEPARIN 1000 UNITS/ML 10 ML INJ CATHETER ONE (13:30)
[2018-07-18] MEDS: GABAPENTIN 300 MG CAP PO SCH (21:18)
[2018-07-18] MEDS: ATORVASTATIN 40 MG TAB PO SCH (21:18)
[2018-07-19] VITALS (12 sets, daily range): BP systolic 105–156; BP diastolic 71–87; PULSE 61–78; RESP 18–19
[2018-07-19] MEDS: morphine 2 MG INJ IV PRN ×6 (00:27→21:48)
[2018-07-19] MEDS: ONDANSETRON 4 MG INJ IV PRN ×3 (00:31→17:38)
[2018-07-19] MEDS: METOPROLOL 50 MG TAB PO SCH ×3 (05:46→21:48)
[2018-07-19] MEDS: metroNIDAZOLE 500 MG TAB PO SCH ×3 (05:46→21:08)
[2018-07-19] MEDS: ASPIRIN 81 MG TAB PO SCH (08:47)
[2018-07-19] MEDS: NIFEdipine (XL) 60 MG TAB PO SCH (08:47)
[2018-07-19] MEDS: ISOSORBIDE MONONITRATE(SR)30 MG TAB PO SCH (08:47)
[2018-07-19] MEDS: FAMOTIDINE 20 MG TAB PO SCH (08:47)
[2018-07-19] MEDS: ESCITALOPRAM 10 MG TAB PO SCH (08:48)
[2018-07-19] MEDS: FUROSEMIDE 40 MG TAB PO SCH ×2 (08:48→21:07)
[2018-07-19] MEDS: HEPARIN 5,000 UNIT/1 ML VIAL SC SCH ×2 (08:50→21:17)
--- NOTE | 2018-07-19 11:39 | CONS ---
Assessment/Plan Assessment/Plan Assessment/Plan (Daily) IMPRESSION: 1. Chest pain with elevated troponin, may be due to the troponin leak. 2. Left upper quadrant pain radiating to back. 3. Hypertension. 4. Hyperkalemia. 5. Diabetes mellitus. 6. Hypertension. 7. End-stage renal disease. 8. Diabetes mellitus. Plan EGD on Saturday Consultation Date/Type/Reason Admit Date/Time Jul 15, 2018 at 07:14 Initial Consult Date Date/Time of Note DATE: 07/19/18 TIME: 11:38 24 HR Interval Summary Constitutional: improved Exam/Review of Systems Exam Vitals Vital Signs Date Temp Pulse Resp B/P (MAP) Pulse Ox O2 O2 Flow FiO2 Time Delivery Rate 07/19/18 98.4 71 18 155/83 98 Room Air 11:11 (107) Intake and Output 07/18/18 07/18/18 07/19/18 1515:00 23:00 07:00 IntakeIntake Total 600 ml OutputOutput Total 200 ml 2700 ml BalanceBalance -200 ml -2100 ml Constitutional: alert, oriented, well developed Psych: no complaints, nl mood/affect Head: normocephalic, atraumatic Eyes: nl conjunctiva, EOMI, nl lids, nl sclera, PERRL ENMT: nl external ears & nose, nl lips & teeth, nl nasal mucosa & septum Neck: supple, non-tender Respiratory: clear to auscultation, normal air movement Cardiovascular: regular rate and rhythm, nl pulses Gastrointestinal: soft, nl liver, spleen, non-tender Musculoskeletal: nl extremities to inspection, nl gait and stance Extremities: normal pulses Neurological: SOLAR INSTALLATION TECHNICIAN II-XII intact, nl mental status, nl speech, nl strength Skin: nl turgor; No rash or lesions Lymph: nl lymph nodes Results Result Diagram: 07/19/18 0454 07/19/18 0454 Results 24hrs Laboratory Tests Test 07/19/18 04:54 White Blood Count 6.3 Red Blood Count 3.56 L Hemoglobin 11.1 L Hematocrit 33.7 L Mean Corpuscular Volume 94.7 Mean Corpuscular Hemoglobin 31.2 Mean Corpuscular Hemoglobin Concent 32.9 Red Cell Distribution Width 13.2 Platelet Count 190 Mean Platelet Volume 13.4 H Immature Granulocytes % 0.300 Neutrophils % 63.3 Lymphocytes % 19.1 Monocytes % 11.8 H Eosinophils % 4.6 Basophils % 0.9 Nucleated Red Blood Cells % 0.0 Immature Granulocytes # 0.020 Neutrophils # 4.0 Lymphocytes # 1.2 Monocytes # 0.8 Eosinophils # 0.3 Basophils # 0.1 Nucleated Red Blood Cells # 0.0 Sodium Level 137 Potassium Level 5.0 Chloride Level 95 L Carbon Dioxide Level 31 Anion Gap 11 Blood Urea Nitrogen 37 #H Creatinine 9.89 #H Est Glomerular Filtrat Rate mL/min 6 L Glucose Level 174 Calcium Level 8.4 Medications Medication Current Medications Nitroglycerin (Nitroglycerin (Sl Tab) 0.4 Mg) 1 tab Q5M UP TO 3 DOSES PRN SL .CHEST PAIN Last administered on 07/15/18at 06:40; Admin Dose 1 TAB; Start at 06:30 IV Flush (NS 3 ml) 3 ml PER PROTOCOL IV ; Start 07/15/18 at 12:30 Acetaminophen/ Hydrocodone Bitart ([place] (5/325)) 1 tab Q6H PRN PO .MOD PAIN 4- 6; Start 07/15/18 at 12:30 Morphine Sulfate (morphine) 2 mg Q4H PRN IV .SEVERE PAIN 7-10 Last administered on 07/19/18at 08:47; Admin Dose 2 MG; Start 07/15/18 at 12:30 Docusate Sodium (Colace) 100 mg Q12H PRN PO .CONSTIPATION; Start 07/15/18 at 12:30 Famotidine (Pepcid) 20 mg DAILY PO Last administered on 07/19/18at 08:47; Admin Dose 20 MG; Start 07/16/18 at 09:00 Aspirin (Aspirin) 81 mg DAILY PO Last administered on 07/19/18at 08:47; Admin Dose 81 MG; Start 07/15/18 at 15:00 Atorvastatin Calcium (Lipitor) 40 mg HS PO Last administered on 07/18/18 21:18; Admin Dose 40 MG; Start 07/15/18 at 21:00 Metoprolol Tartrate (Lopressor) 50 mg Q8 PO Last administered on 07/19/18at 05:46; Admin Dose 50 MG; Start 07/15/18 at 15:00 Escitalopram Oxalate (Lexapro) 10 mg DAILY PO Last administered on 07/19/18at 08:48; Admin Dose 10 MG; Start 07/16/18 at 09:00 Furosemide (Lasix) 40 mg BID PO Last administered on 07/19/18 08:48; Admin Dose 40 MG; Start 07/15/18 at 21:00 Gabapentin (Neurontin) 300 mg QHS PO Last administered on 07/18/18 21:18; Admin Dose 300 MG; Start 07/15/18 at 21:00 Hydralazine HCl (Apresoline) 10 mg Q4H PRN IV sbp>165 Last administered on 07/17/18 20:47; Admin Dose 10 MG; Start 07/15/18 at 23:00 Ondansetron HCl (Zofran Inj) 4 mg Q4H PRN IV NAUSEA AND/OR VOMITING Last administered on 07/19/18 08:53; Admin Dose 4 MG; Start 07/16/18 at 13:00 Metronidazole (Flagyl) 500 mg Q8 PO Last administered on 07/19/18 05:46; Admin Dose 500 MG; Start 07/16/18 at 22:00 Isosorbide Mononitrate (Imdur) 30 mg DAILY PO Last administered on 07/19/18 08:47; Admin Dose 30 MG; Start 07/16/18 at 19:00 Nifedipine (Procardia Xl) 60 mg DAILY PO Last administered on 07/19/18 08:47; Admin Dose 60 MG; Start 07/18/18 at 09:00 Heparin Sodium (Porcine) (Heparin (5000 Units/1ml)) 5,000 unit BID SC Last administered on 07/19/18 08:50; Admin Dose 5,000 UNIT; Start 07/18/18 at 13:00 MAXIMO KUHN MD Jul 19, 2018 11:38
--- NOTE | 2018-07-19 13:55 | PN ---
Date/Time of Note Date/Time of Note DATE: 07/19/18 TIME: 13:54 Assessment/Plan VTE Prophylaxis Risk score (from Ns)>0 risk: 3 SCD applied (from Ns): Yes Pharmacological prophylaxis: heparin Lines/Catheters IV Catheter Type (from Nrs): Peripheral IV Urinary Cath still in place: No Assessment/Plan Hospital Course 1. Chest pain. At this time, the patient had a positive troponin; however, EKG did not show any acute significant abnormalities. Elevated trop likely secondary to NSTEMI vs troponin leak however Trop had been neg in past. troponin leak. 2. Left upper quadrant pain radiating to the back at this time. Lipase is normal. The patient also to have episodes of nausea, vomiting and diarrhea. The patient had a recent CT scan done, which was negative. now has diarrhoea/ vomiting? Colitis ?? 3. Hypertension, uncontrolled. 4. Hyperkalemia. 5. Mild leukocytosis. 6. Diabetes. 7. Hypertension. 8. Hyperlipidemia. 9. Non-ST elevation myocardial infarction. 10. End-stage renal disease, on hemodialysis. 11. Diabetes with complication of diabetic nephropathy, retinopathy, neuropathy. 12. Hx of noncompliance 13. Overweight 14. Anemia of chronic disease. Assessment/Plan -CT angiogram mild to moderate plaque in LAD but no intervention needed per Dr. Martinez, CT of the chest is also negative -renal diet -Possible ERCP by GI, EGD Saturday -EGD was on hold yesterday due to hyperkalemia -C. difficile negative - cw mtp/nifedipine/lasix - renally dose all meds -DVT proph. Heparin 5000 units BID -GI proph. Famotidine BID Result Diagram: 07/19/18 0454 07/19/18 0454 Results 24hrs Laboratory Tests Test 07/19/18 04:54 White Blood Count 6.3 Red Blood Count 3.56 L Hemoglobin 11.1 L Hematocrit 33.7 L Mean Corpuscular Volume 94.7 Mean Corpuscular Hemoglobin 31.2 Mean Corpuscular Hemoglobin Concent 32.9 Red Cell Distribution Width 13.2 Platelet Count 190 Mean Platelet Volume 13.4 H Immature Granulocytes % 0.300 Neutrophils % 63.3 Lymphocytes % 19.1 Monocytes % 11.8 H Eosinophils % 4.6 Basophils % 0.9 Nucleated Red Blood Cells % 0.0 Immature Granulocytes # 0.020 Neutrophils # 4.0 Lymphocytes # 1.2 Monocytes # 0.8 Eosinophils # 0.3 Basophils # 0.1 Nucleated Red Blood Cells # 0.0 Sodium Level 137 Potassium Level 5.0 Chloride Level 95 L Carbon Dioxide Level 31 Anion Gap 11 Blood Urea Nitrogen 37 #H Creatinine 9.89 #H Est Glomerular Filtrat Rate mL/min 6 L Glucose Level 174 Calcium Level 8.4 Subjective 24 Hr Interval Summary Gastrointestinal: no complaints, nausea Exam/Review of Systems Exam Vitals Vital Signs Date Temp Pulse Resp B/P (MAP) Pulse Ox O2 O2 Flow FiO2 Time Delivery Rate 07/19/18 70 12:19 07/19/18 98.4 18 155/83 98 Room Air 11:11 (107) Intake and Output 07/18/18 07/18/18 07/19/18 1515:00 23:00 07:00 IntakeIntake Total 600 ml OutputOutput Total 200 ml 2700 ml BalanceBalance -200 ml -2100 ml Exam right chest Permcath Constitutional: alert, oriented Respiratory: clear to auscultation Cardiovascular: regular rate and rhythm Gastrointestinal: soft, rebound or guarding; No nl liver, spleen, No non-tender, No ascites, No bowel sounds, No distended, No firm, No hepatomegaly, No mass, No splenomegaly, No surgical scars, No tender, No other Results Results 24hrs Laboratory Tests Test 07/19/18 04:54 White Blood Count 6.3 Red Blood Count 3.56 L Hemoglobin 11.1 L Hematocrit 33.7 L Mean Corpuscular Volume 94.7 Mean Corpuscular Hemoglobin 31.2 Mean Corpuscular Hemoglobin Concent 32.9 Red Cell Distribution Width 13.2 Platelet Count 190 Mean Platelet Volume 13.4 H Immature Granulocytes % 0.300 Neutrophils % 63.3 Lymphocytes % 19.1 Monocytes % 11.8 H Eosinophils % 4.6 Basophils % 0.9 Nucleated Red Blood Cells % 0.0 Immature Granulocytes # 0.020 Neutrophils # 4.0 Lymphocytes # 1.2 Monocytes # 0.8 Eosinophils # 0.3 Basophils # 0.1 Nucleated Red Blood Cells # 0.0 Sodium Level 137 Potassium Level 5.0 Chloride Level 95 L Carbon Dioxide Level 31 Anion Gap 11 Blood Urea Nitrogen 37 #H Creatinine 9.89 #H Est Glomerular Filtrat Rate mL/min 6 L Glucose Level 174 Calcium Level 8.4 Medications Medication Current Medications Nitroglycerin (Nitroglycerin (Sl Tab) 0.4 Mg) 1 tab Q5M UP TO 3 DOSES PRN SL .CHEST PAIN Last administered on 07/15/18 06:40; Admin Dose 1 TAB; Start 07/15/18 at 06:30 IV Flush (NS 3 ml) 3 ml PER PROTOCOL IV ; Start 07/15/18 at 12:30 Acetaminophen/ Hydrocodone Bitart ([place] (5/325)) 1 tab Q6H PRN PO .MOD PAIN 4- 6; Start 07/15/18 at 12:30 Morphine Sulfate (morphine) 2 mg Q4H PRN IV .SEVERE PAIN 7-10 Last administered on 07/19/18 13:05; Admin Dose 2 MG; Start 07/15/18 at 12:30 Docusate Sodium (Colace) 100 mg Q12H PRN PO .CONSTIPATION; Start 07/15/18 at 12:30 Famotidine (Pepcid) 20 mg DAILY PO Last administered on 07/19/18 08:47; Admin Dose 20 MG; Start 07/16/18 at 09:00 Aspirin (Aspirin) 81 mg DAILY PO Last administered on 07/19/18 08:47; Admin Dose 81 MG; Start 07/15/18 at 15:00 Atorvastatin Calcium (Lipitor) 40 mg HS PO Last administered on 07/18/18 21:18; Admin Dose 40 MG; Start 07/15/18 at 21:00 Metoprolol Tartrate (Lopressor) 50 mg Q8 PO Last administered on 07/19/18 13:05; Admin Dose 50 MG; Start 07/15/18 at 15:00 Escitalopram Oxalate (Lexapro) 10 mg DAILY PO Last administered on 07/19/18 08:48; Admin Dose 10 MG; Start 07/16/18 at 09:00 Furosemide (Lasix) 40 mg BID PO Last administered on 07/19/18 08:48; Admin Dose 40 MG; Start 07/15/18 at 21:00 Gabapentin (Neurontin) 300 mg QHS PO Last administered on 07/18/18 21:18; Admin Dose 300 MG; Start 07/15/18 at 21:00 Hydralazine HCl (Apresoline) 10 mg Q4H PRN IV sbp>165 Last administered on 07/17/18 20:47; Admin Dose 10 MG; Start 07/15/18 at 23:00 Ondansetron HCl (Zofran Inj) 4 mg Q4H PRN IV NAUSEA AND/OR VOMITING Last administered on 07/19/18 08:53; Admin Dose 4 MG; Start 07/16/18 at 13:00 Metronidazole (Flagyl) 500 mg Q8 PO Last administered on 07/19/18 13:05; Admin Dose 500 MG; Start 07/16/18 at 22:00 Isosorbide Mononitrate (Imdur) 30 mg DAILY PO Last administered on 07/19/18 08:47; Admin Dose 30 MG; Start 07/16/18 at 19:00 Nifedipine (Procardia Xl) 60 mg DAILY PO Last administered on 07/19/18 08:47; Admin Dose 60 MG; Start 07/18/18 at 09:00 Heparin Sodium (Porcine) (Heparin (5000 Units/1ml)) 5,000 unit BID SC Last administered on 07/19/18 08:50; Admin Dose 5,000 UNIT; Start 07/18/18 at 13:00 CALLY PERKINS Jul 19, 2018 13:55
[2018-07-19] MEDS ORDERED: GLUCOSE GEL 15 GRAM TUBE PO PRN ×2 (15:00)
[2018-07-19] MEDS ORDERED: DEXTROSE 50% 50 ML SYRINGE IV PRN ×2 (15:00)
[2018-07-19] MEDS ORDERED: GLUCAGON 1 MG INJ IM PRN (15:00)
[2018-07-19] MEDS ORDERED: GLUCOSE GEL 15 GRAM TUBE BUCCAL PRN (15:00)
[2018-07-19] MEDS: INSULIN ASPART [NOVOLOG] 3 ML PEN SC SCH ×2 (17:16→21:00)
[2018-07-19] MEDS: GABAPENTIN 300 MG CAP PO SCH (21:07)
[2018-07-19] MEDS: ATORVASTATIN 40 MG TAB PO SCH (21:08)
[2018-07-20] VITALS (28 sets, daily range): BP systolic 139–221; BP diastolic 76–125; PULSE 63–87; RESP 18–20
[2018-07-20] MEDS: ACCU-CHEK XX SCH (02:00)
[2018-07-20] MEDS: metroNIDAZOLE 500 MG TAB PO SCH ×3 (05:55→22:10)
[2018-07-20] MEDS: METOPROLOL 50 MG TAB PO SCH ×3 (05:56→22:11)
[2018-07-20] MEDS: morphine 2 MG INJ IV PRN ×4 (06:00→22:11)
[2018-07-20] MEDS: ONDANSETRON 4 MG INJ IV PRN ×3 (07:59→22:11)
[2018-07-20] MEDS: INSULIN ASPART [NOVOLOG] 3 ML PEN SC SCH ×4 (08:00→21:00)
[2018-07-20] MEDS: FUROSEMIDE 40 MG TAB PO SCH ×2 (09:32→22:10)
[2018-07-20] MEDS: ASPIRIN 81 MG TAB PO SCH (09:32)
[2018-07-20] MEDS: ESCITALOPRAM 10 MG TAB PO SCH (09:33)
[2018-07-20] MEDS: NIFEdipine (XL) 60 MG TAB PO SCH (09:33)
[2018-07-20] MEDS: FAMOTIDINE 20 MG TAB PO SCH (09:33)
[2018-07-20] MEDS: ISOSORBIDE MONONITRATE(SR)30 MG TAB PO SCH (09:33)
--- NOTE | 2018-07-20 09:40 | PN ---
Date/Time of Note Date/Time of Note DATE: 07/20/18 TIME: 09:37 Assessment/Plan VTE Prophylaxis Risk score (from Ns)>0 risk: 1 SCD applied (from [facility] [place] No SCD contraindicated: other Pharmacological prophylaxis: heparin Lines/Catheters IV Catheter Type (from [facility]): Peripheral IV Urinary Cath still in place: No Assessment/Plan Hospital Course 1. Chest pain. At this time, the patient had a positive troponin; however, EKG did not show any acute significant abnormalities. Elevated trop likely secondary to NSTEMI vs troponin leak however Trop had been neg in past. troponin leak. 2. Left upper quadrant pain radiating to the back at this time. Lipase is normal. The patient also to have episodes of nausea, vomiting and diarrhea. The patient had a recent CT scan done, which was negative. now has diarrhoea/ vomiting? Colitis ?? 3. Hypertension, uncontrolled. 4. Hyperkalemia. 5. Mild leukocytosis. 6. Diabetes. 7. Hypertension. 8. Hyperlipidemia. 9. Non-ST elevation myocardial infarction. 10. End-stage renal disease, on hemodialysis. 11. Diabetes with complication of diabetic nephropathy, retinopathy, neuropathy. 12. Hx of noncompliance 13. Overweight 14. Anemia of chronic disease. Assessment/Plan -extra HD today for hyperkalemia -CT angiogram mild to moderate plaque in LAD but no intervention needed per Dr. Martinez, CT of the chest is also negative -renal diet - EGD Saturday -C. difficile negative - cw mtp/nifedipine/lasix - renally dose all meds -DVT proph. Heparin 5000 units BID -GI proph. Famotidine BID Result Diagram: 07/20/18 0541 07/20/18 0541 Results 24hrs Laboratory Tests Test 07/19/18 17:15 07/19/18 21:04 07/20/18 05:41 07/20/18 07:56 Bedside Glucose 154 132 136 White Blood Count 6.5 Red Blood Count 3.45 L Hemoglobin 10.6 L Hematocrit 32.7 L Mean Corpuscular 94.8 Volume Mean Corpuscular 30.7 Hemoglobin Mean Corpuscular 32.4 Hemoglobin Concent Red Cell 13.2 Distribution Width Platelet Count 178 Mean Platelet Volume 13.5 H Immature 0.300 Granulocytes % Neutrophils % 61.6 Lymphocytes % 23.0 Monocytes % 8.9 Eosinophils % 5.4 Basophils % 0.8 Nucleated Red Blood 0.0 Cells % Immature 0.020 Granulocytes # Neutrophils # 4.0 Lymphocytes # 1.5 Monocytes # 0.6 Eosinophils # 0.4 Basophils # 0.1 Nucleated Red Blood 0.0 Cells # Sodium Level 137 Potassium Level 5.5 H Chloride Level 92 L Carbon Dioxide Level 30 Anion Gap 15 H Blood Urea Nitrogen 45 H Creatinine 11.06 H Est Glomerular 5 L Filtrat Rate mL/min Glucose Level 137 Calcium Level 8.3 L Phosphorus Level 9.0 H Subjective 24 Hr Interval Summary Constitutional: no complaints Exam/Review of Systems Exam Vitals Vital Signs Date Temp Pulse Resp B/P (MAP) Pulse Ox O2 O2 Flow FiO2 Time Delivery Rate 07/20/18 74 08:00 07/20/18 98.0 18 176/96 98 Room Air 07:25 (122) Intake and Output 07/19/18 07/19/18 07/20/18 1515:00 23:00 07:00 IntakeIntake Total 1800 ml 3000 ml OutputOutput Total 200 ml BalanceBalance 1600 ml 3000 ml Exam right chest permcath Constitutional: alert, oriented ENMT: nl external ears & nose Neck: supple Respiratory: diminished breath sounds Cardiovascular: regular rate and rhythm Gastrointestinal: soft Results Results 24hrs Laboratory Tests Test 07/19/18 17:15 07/19/18 21:04 07/20/18 05:41 07/20/18 07:56 Bedside Glucose 154 132 136 White Blood Count 6.5 Red Blood Count 3.45 L Hemoglobin 10.6 L Hematocrit 32.7 L Mean Corpuscular 94.8 Volume Mean Corpuscular 30.7 Hemoglobin Mean Corpuscular 32.4 Hemoglobin Concent Red Cell 13.2 Distribution Width Platelet Count 178 Mean Platelet Volume 13.5 H Immature 0.300 Granulocytes % Neutrophils % 61.6 Lymphocytes % 23.0 Monocytes % 8.9 Eosinophils % 5.4 Basophils % 0.8 Nucleated Red Blood 0.0 Cells % Immature 0.020 Granulocytes # Neutrophils # 4.0 Lymphocytes # 1.5 Monocytes # 0.6 Eosinophils # 0.4 Basophils # 0.1 Nucleated Red Blood 0.0 Cells # Sodium Level 137 Potassium Level 5.5 H Chloride Level 92 L Carbon Dioxide Level 30 Anion Gap 15 H Blood Urea Nitrogen 45 H Creatinine 11.06 H Est Glomerular 5 L Filtrat Rate mL/min Glucose Level 137 Calcium Level 8.3 L Phosphorus Level 9.0 H Medications Medication Current Medications Nitroglycerin (Nitroglycerin (Sl Tab) 0.4 Mg) 1 tab Q5M UP TO 3 DOSES PRN SL .CHEST PAIN Last administered on 07/15/18 06:40; Admin Dose 1 TAB; Start 07/15/18 at 06:30 IV Flush (NS 3 ml) 3 ml PER PROTOCOL IV ; Start 07/15/18 at 12:30 Acetaminophen/ Hydrocodone Bitart ([place] (5/325)) 1 tab Q6H PRN PO .MOD PAIN 4- 6; Start 07/15/18 at 12:30 Morphine Sulfate (morphine) 2 mg Q4H PRN IV .SEVERE PAIN 7-10 Last administered on 07/20/18 06:00; Admin Dose 2 MG; Start 07/15/18 at 12:30 Docusate Sodium (Colace) 100 mg Q12H PRN PO .CONSTIPATION; Start 07/15/18 at 12:30 Famotidine (Pepcid) 20 mg DAILY PO Last administered on 07/19/18 08:47; Admin Dose 20 MG; Start 07/16/18 at 09:00 Aspirin (Aspirin) 81 mg DAILY PO Last administered on 07/19/18 08:47; Admin Dose 81 MG; Start 07/15/18 at 15:00 Atorvastatin Calcium (Lipitor) 40 mg HS PO Last administered on 07/19/18 21:08; Admin Dose 40 MG; Start 07/15/18 at 21:00 Metoprolol Tartrate (Lopressor) 50 mg Q8 PO Last administered on 07/20/18 05:56; Admin Dose 50 MG; Start 07/15/18 at 15:00 Escitalopram Oxalate (Lexapro) 10 mg DAILY PO Last administered on 07/19/18 08:48; Admin Dose 10 MG; Start 07/16/18 at 09:00 Furosemide (Lasix) 40 mg BID PO Last administered on 07/19/18 21:07; Admin Dose 40 MG; Start 07/15/18 at 21:00 Gabapentin (Neurontin) 300 mg QHS PO Last administered on 07/19/18 21:07; Admin Dose 300 MG; Start 07/15/18 at 21:00 Hydralazine HCl (Apresoline) 10 mg Q4H PRN IV sbp>165 Last administered on 07/17/18at 20:47; Admin Dose 10 MG; Start 07/15/18 at 23:00 Ondansetron HCl (Zofran Inj) 4 mg Q4H PRN IV NAUSEA AND/OR VOMITING Last administered on 07/20/18at 07:59; Admin Dose 4 MG; Start 07/16/18 at 13:00 Metronidazole (Flagyl) 500 mg Q8 PO Last administered on 07/20/18at 05:55; Admin Dose 500 MG; Start 07/16/18 at 22:00 Isosorbide Mononitrate (Imdur) 30 mg DAILY PO Last administered on 07/19/18 08:47; Admin Dose 30 MG; Start 07/16/18 at 19:00 Nifedipine (Procardia Xl) 60 mg DAILY PO Last administered on 07/19/18 08:47; Admin Dose 60 MG; Start 07/18/18 at 09:00 Heparin Sodium (Porcine) (Heparin (5000 Units/1ml)) 5,000 unit BID SC Last administered on 07/19/18at 21:17; Admin Dose 5,000 UNIT; Start 07/18/18 at 13:00 Diagnostic Test (Pha) (Accu-Chek) 1 ea 02 XX ; Start 07/20/18 at 02:00 Insulin Aspart (Novolog Insulin Pen) NOVOLOG *MILD* ALGORITHM WITH MEALS B EDTIME SC ; Start 07/19/18 at 18:00 Miscellaneous Information 1 ea NOTE XX ; Start 07/19/18 at 15:00 Glucose (Glutose) 15 gm Q15M PRN PO DECREASED GLUCOSE; Start 07/19/18 at 15:00 Glucose (Glutose) 22.5 gm Q15M PRN PO DECREASED GLUCOSE; Start 07/19/18 at 15:00 Dextrose (D50w Syringe) 25 ml Q15M PRN IV DECREASED GLUCOSE; Start 07/19/18 at 15:00 Dextrose (D50w Syringe) 50 ml Q15M PRN IV DECREASED GLUCOSE; Start 07/19/18 at 15:00 Glucagon (Glucagen) 1 mg Q15M PRN IM DECREASED GLUCOSE; Start 07/19/18 at 15:00 Glucose (Glutose) 15 gm Q15M PRN BUCCAL DECREASED GLUCOSE; Start 4/20/19 at 15:00 MEZENTSEVA,CALLY Jul 20, 2018 09:40
[2018-07-20] MEDS: HEPARIN 5,000 UNIT/1 ML VIAL SC SCH ×2 (09:41→22:22)
[2018-07-20] MEDS: hydrALAzine 20 MG INJ IV PRN (11:41)
--- NOTE | 2018-07-20 17:45 | CONS ---
Assessment/Plan Assessment/Plan Assessment/Plan (Daily) IMPRESSION: 1. Chest pain with elevated troponin, may be due to the troponin leak. 2. Left upper quadrant pain radiating to back. 3. Hypertension. 4. Hyperkalemia. 5. Diabetes mellitus. 6. Hypertension. 7. End-stage renal disease. 8. Diabetes mellitus. Plan EGD on Saturday discussed with the patient and has agreed for the procedure Consultation Date/Type/Reason Admit Date/Time Jul 15, 2018 at 07:14 Initial Consult Date Date/Time of Note DATE: 07/20/18 TIME: 17:45 24 HR Interval Summary Free Text/Dictation And again vomited 3-4 times today Exam/Review of Systems Exam Vitals Vital Signs Date Temp Pulse Resp B/P (MAP) Pulse Ox O2 O2 Flow FiO2 Time Delivery Rate 07/20/18 70 16:00 07/20/18 97.4 20 174/104 98 Room Air 15:14 (127) Intake and Output 07/19/18 07/19/18 07/20/18 1414:59 22:59 06:59 IntakeIntake Total 1800 ml 3000 ml OutputOutput Total 200 ml BalanceBalance 1600 ml 3000 ml Constitutional: alert, oriented, well developed Psych: no complaints, nl mood/affect Head: normocephalic, atraumatic Eyes: nl conjunctiva, EOMI, nl lids, nl sclera, PERRL ENMT: nl external ears & nose, nl lips & teeth, nl nasal mucosa & septum Neck: supple, non-tender Respiratory: clear to auscultation, normal air movement Cardiovascular: regular rate and rhythm, nl pulses Gastrointestinal: soft, nl liver, spleen, non-tender Musculoskeletal: nl extremities to inspection, nl gait and stance Extremities: normal pulses Neurological: VALANCE CUTTER II-XII intact, nl mental status, nl speech, nl strength Skin: nl turgor; No rash or lesions Lymph: nl lymph nodes Results Result Diagram: 07/20/18 0541 07/20/18 0541 Results 24hrs Laboratory Tests Test 07/19/18 21:04 07/20/18 05:41 07/20/18 07:56 07/20/18 11:44 Bedside Glucose 132 136 166 White Blood Count 6.5 Red Blood Count 3.45 L Hemoglobin 10.6 L Hematocrit 32.7 L Mean Corpuscular 94.8 Volume Mean Corpuscular 30.7 Hemoglobin Mean Corpuscular 32.4 Hemoglobin Concent Red Cell 13.2 Distribution Width Platelet Count 178 Mean Platelet Volume 13.5 H Immature 0.300 Granulocytes % Neutrophils % 61.6 Lymphocytes % 23.0 Monocytes % 8.9 Eosinophils % 5.4 Basophils % 0.8 Nucleated Red Blood 0.0 Cells % Immature 0.020 Granulocytes # Neutrophils # 4.0 Lymphocytes # 1.5 Monocytes # 0.6 Eosinophils # 0.4 Basophils # 0.1 Nucleated Red Blood 0.0 Cells # Sodium Level 137 Potassium Level 5.5 H Chloride Level 92 L Carbon Dioxide Level 30 Anion Gap 15 H Blood Urea Nitrogen 45 H Creatinine 11.06 H Est Glomerular 5 L Filtrat Rate mL/min Glucose Level 137 Calcium Level 8.3 L Phosphorus Level 9.0 H Medications Medication Current Medications Nitroglycerin (Nitroglycerin (Sl Tab) 0.4 Mg) 1 tab Q5M UP TO 3 DOSES PRN SL .CHEST PAIN Last administered on 07/15/18at 06:40; Admin Dose 1 TAB; Start 07/15/18 at 06:30 IV Flush (NS 3 ml) 3 ml PER PROTOCOL IV ; Start 07/15/18 at 12:30 Acetaminophen/ Hydrocodone Bitart ([place] (5/325)) 1 tab Q6H PRN PO .MOD PAIN 4- 6; Start 07/15/18 at 12:30 Morphine Sulfate (morphine) 2 mg Q4H PRN IV .SEVERE PAIN 7-10 Last administered on 07/20/18at 17:04; Admin Dose 2 MG; Start 07/15/18 at 12:30 Docusate Sodium (Colace) 100 mg Q12H PRN PO .CONSTIPATION; Start 07/15/18 at 12:30 Famotidine (Pepcid) 20 mg DAILY PO Last administered on 07/20/18at 09:33; Admin Dose 20 MG; Start 07/16/18 at 09:00 Aspirin (Aspirin) 81 mg DAILY PO Last administered on 07/20/18at 09:32; Admin Dose 81 MG; Start 07/15/18 at 15:00 Atorvastatin Calcium (Lipitor) 40 mg HS PO Last administered on 07/19/18at 21:08; Admin Dose 40 MG; Start 07/15/18 at 21:00 Metoprolol Tartrate (Lopressor) 50 mg Q8 PO Last administered on 07/20/18 05:56; Admin Dose 50 MG; Start 07/15/18 at 15:00 Escitalopram Oxalate (Lexapro) 10 mg DAILY PO Last administered on 07/20/18 0 9:33; Admin Dose 10 MG; Start 07/16/18 at 09:00 Furosemide (Lasix) 40 mg BID PO Last administered on 07/20/18 09:32; Admin Dose 40 MG; Start 07/15/18 at 21:00 Gabapentin (Neurontin) 300 mg QHS PO Last administered on 07/19/18 21:07; Admin Dose 300 MG; Start 07/15/18 at 21:00 Hydralazine HCl (Apresoline) 10 mg Q4H PRN IV sbp>165 Last administered on 07/20/18 11:41; Admin Dose 10 MG; Start 07/15/18 at 23:00 Ondansetron HCl (Zofran Inj) 4 mg Q4H PRN IV NAUSEA AND/OR VOMITING Last administered on 07/20/18 17:04; Admin Dose 4 MG; Start 07/16/18 at 13:00 Metronidazole (Flagyl) 500 mg Q8 PO Last administered on 07/20/18 15:42; Admin Dose 500 MG; Start 07/16/18 at 22:00 Isosorbide Mononitrate (Imdur) 30 mg DAILY PO Last administered on 07/20/18 09:33; Admin Dose 30 MG; Start 07/16/18 at 19:00 Nifedipine (Procardia Xl) 60 mg DAILY PO Last administered on 07/20/18 09:33; Admin Dose 60 MG; Start 07/18/18 at 09:00 Heparin Sodium (Porcine) (Heparin (5000 Units/1ml)) 5,000 unit BID SC Last administered on 07/20/18 09:41; Admin Dose 5,000 UNIT; Start 07/18/18 at 13:00 Diagnostic Test (Pha) (Accu-Chek) 1 ea 02 XX ; Start 07/20/18 at 02:00 Insulin Aspart (Novolog Insulin Pen) NOVOLOG *MILD* ALGORITHM WITH MEALS BEDTIME SC Last administered on 07/20/18 12:47; Admin Dose 1 UNIT; Start 07/19/18 at 18:00 Miscellaneous Information 1 ea NOTE XX ; Start 07/19/18 at 15:00 Glucose (Glutose) 15 gm Q15M PRN PO DECREASED GLUCOSE; Start 07/19/18 at 15:00 Glucose (Glutose) 22.5 gm Q15M PRN PO DECREASED GLUCOSE; Start 07/19/18 at 15:00 Dextrose (D50w Syringe) 25 ml Q15M PRN IV DECREASED GLUCOSE; Start 07/19/18 at 15:00 Dextrose (D50w Syringe) 50 ml Q15M PRN IV DECREASED GLUCOSE; Start 07/19/18 at 15:00 Glucagon (Glucagen) 1 mg Q15M PRN IM DECREASED GLUCOSE; Start 07/19/18 at 15:00 Glucose (Glutose) 15 gm Q15M PRN BUCCAL DECREASED GLUCOSE; Start 07/19/18 at 15:00 MAXIMO KUHN MD Jul 20, 2018 17:45
[2018-07-20] MEDS: GABAPENTIN 300 MG CAP PO SCH (22:11)
[2018-07-20] MEDS: ATORVASTATIN 40 MG TAB PO SCH (22:11)
[2018-07-21] VITALS (28 sets, daily range): BP systolic 113–171; BP diastolic 65–95; PULSE 60–85; RESP 9–20
[2018-07-21] MEDS: ACCU-CHEK XX SCH (02:00)
[2018-07-21] MEDS: morphine 2 MG INJ IV PRN ×4 (02:47→20:56)
[2018-07-21] MEDS: metroNIDAZOLE 500 MG TAB PO SCH ×4 (06:00→21:59)
[2018-07-21] MEDS: METOPROLOL 50 MG TAB PO SCH ×4 (06:00→21:59)
[2018-07-21] MEDS: ONDANSETRON 4 MG INJ IV PRN (07:17)
[2018-07-21] MEDS: INSULIN ASPART [NOVOLOG] 3 ML PEN SC SCH ×4 (08:00→21:06)
[2018-07-21] MEDS: FAMOTIDINE 20 MG TAB PO SCH (08:14)
[2018-07-21] MEDS: NIFEdipine (XL) 60 MG TAB PO SCH (08:14)
[2018-07-21] MEDS: ESCITALOPRAM 10 MG TAB PO SCH (08:15)
[2018-07-21] MEDS: FUROSEMIDE 40 MG TAB PO SCH ×2 (08:15→20:55)
[2018-07-21] MEDS: ISOSORBIDE MONONITRATE(SR)30 MG TAB PO SCH (08:15)
--- NOTE | 2018-07-21 13:10 | CONS ---
Assessment/Plan Assessment/Plan Hospital Course (Demo Recall) Chest, abdominal and flank pain Elevated troponin-trending down Low normal left ventricular ejection fraction 50-55% End-stage renal disease hemodialysis Hypertension, uncontrolled Diabetes Vasculopathy -CT coronary angiogram with 50% plaque in LAD, otherwise no obstructive coronary artery disease. -CT pulmonary angiogram with no evidence of pulmonary emboli -Patient's complaints are of chest discomfort with inspiration as well as abdominal pain, and pain elicited with palpation of chest wall -Patient undergoing GI workup -Continue statin therapy, beta-luis f, blood pressure control -Fluid management via hemodialysis as per nephrology Consultation Date/Type/Reason Admit Date/Time Jul 15, 2018 at 07:14 Initial Consult Date Type of Consult Cardiology Date/Time of Note DATE: 07/21/18 TIME: 13:09 24 HR Interval Summary Free Text/Dictation Denies shortness of breath, continues to complain of sharp and pounding-like sensation on the left side of his body including his left shoulder, chest, flank and abdomen Exam/Review of Systems Vital Signs Vitals Vital Signs Date Temp Pulse Resp B/P (MAP) Pulse Ox O2 O2 Flow FiO2 Time Delivery Rate 07/21/18 98.4 63 19 134/71 97 11:20 (92) 07/21/18 Room Air 03:51 Intake and Output 07/20/18 07/20/18 07/21/18 1515:00 23:00 07:00 IntakeIntake Total 1600 ml OutputOutput Total 2700 ml BalanceBalance -1100 ml Exam Exam Sleeping but arousable, no apparent distress Head: normocephalic Respiratory: other (Coarse breath sounds bilaterally, no wheezing) Cardiovascular: regular rate and rhythm (S1-S2 heard) Gastrointestinal: soft, non-tender, bowel sounds Extremities: other (Trace edema) Labs Result Diagram: 07/21/18 0541 07/21/18 0541 Results 24hrs Laboratory Tests Test 07/20/18 22:06 07/21/18 02:43 07/21/18 05:41 07/21/18 07:57 Bedside Glucose 195 154 141 White Blood Count 5.6 Red Blood Count 3.66 L Hemoglobin 11.2 L Hematocrit 34.3 L Mean Corpuscular 93.7 Volume Mean Corpuscular 30.6 Hemoglobin Mean Corpuscular 32.7 Hemoglobin Concent Red Cell 13.0 Distribution Width Platelet Count 187 Mean Platelet Volume 12.9 H Immature 0.400 Granulocytes % Neutrophils % 56.5 Lymphocytes % 26.6 Monocytes % 8.8 Eosinophils % 6.3 Basophils % 1.4 Nucleated Red Blood 0.0 Cells % Immature 0.020 Granulocytes # Neutrophils # 3.2 Lymphocytes # 1.5 Monocytes # 0.5 Eosinophils # 0.4 Basophils # 0.1 Nucleated Red Blood 0.0 Cells # Sodium Level 138 Potassium Level 4.7 Chloride Level 95 L Carbon Dioxide Level 34 H Anion Gap 9 # Blood Urea Nitrogen 33 #H Creatinine 9.50 H Est Glomerular 6 L Filtrat Rate mL/min Glucose Level 154 Calcium Level 8.9 Test 07/21/18 11:48 Bedside Glucose 160 Medications Medications Current Medications Nitroglycerin (Nitroglycerin (Sl Tab) 0.4 Mg) 1 tab Q5M UP TO 3 DOSES PRN SL .CHEST PAIN Last administered on 07/15/18at 06:40; Admin Dose 1 TAB; Start 07/15/18 at 06:30 IV Flush (NS 3 ml) 3 ml PER PROTOCOL IV ; Start 07/15/18 at 12:30 Acetaminophen/ Hydrocodone Bitart ([place] (5/325)) 1 tab Q6H PRN PO .MOD PAIN 4- 6; Start 07/15/18 at 12:30 Morphine Sulfate (morphine) 2 mg Q4H PRN IV .SEVERE PAIN 7-10 Last administered on 07/21/18at 07:18; Admin Dose 2 MG; Start 07/15/18 at 12:30 Docusate Sodium (Colace) 100 mg Q12H PRN PO .CONSTIPATION; Start 07/15/18 at 12:30 Famotidine (Pepcid) 20 mg DAILY PO Last administered on 07/21/18at 08:14; Admin Dose 20 MG; Start 07/16/18 at 09:00 Aspirin (Aspirin) 81 mg DAILY PO Last administered on 07/20/18at 09:32; Admin Dose 81 MG; Start 07/15/18 at 15:00; Status Hold Atorvastatin Calcium (Lipitor) 40 mg HS PO Last administered on 07/20/18at 22:11; Admin Dose 40 MG; Start 07/15/18 at 21:00 Metoprolol Tartrate (Lopressor) 50 mg Q8 PO Last administered on 07/20/18at 22:11; Admin Dose 50 MG; Start 07/15/18 at 15:00 Escitalopram Oxalate (Lexapro) 10 mg DAILY PO Last administered on 07/21/18 08:15; Admin Dose 10 MG; Start 07/16/18 at 09:00 Furosemide (Lasix) 40 mg BID PO Last administered on 07/21/18 08:15; Admin Dose 40 MG; Start 07/15/18 at 21:00 Gabapentin (Neurontin) 300 mg QHS PO Last administered on 07/20/18 22:11; Admin Dose 300 MG; Start 07/15/18 at 21:00 Hydralazine HCl (Apresoline) 10 mg Q4H PRN IV sbp>165 Last administered on 07/20/18 11:41; Admin Dose 10 MG; Start 07/15/18 at 23:00 Ondansetron HCl (Zofran Inj) 4 mg Q4H PRN IV NAUSEA AND/OR VOMITING Last administered on 07/21/18 07:17; Admin Dose 4 MG; Start 07/16/18 at 13:00 Metronidazole (Flagyl) 500 mg Q8 PO Last administered on 07/20/18 22:10; Admin Dose 500 MG; Start 07/16/18 at 22:00 Isosorbide Mononitrate (Imdur) 30 mg DAILY PO Last administered on 07/21/18 08:15; Admin Dose 30 MG; Start 07/16/18 at 19:00 Nifedipine (Procardia Xl) 60 mg DAILY PO Last administered on 07/21/18 08:14; Admin Dose 60 MG; Start 07/18/18 at 09:00 Heparin Sodium (Porcine) (Heparin (5000 Units/1ml)) 5,000 unit BID SC Last administered on 07/20/18 22:22; Admin Dose 5,000 UNIT; Start 07/18/18 at 13:00; Status Hold Diagnostic Test (Pha) (Accu-Chek) 1 ea 02 XX ; Start 07/20/18 at 02:00 Insulin Aspart (Novolog Insulin Pen) NOVOLOG *MILD* ALGORITHM WITH MEALS BEDTIME SC Last administered on 07/20/18at 21:00; Admin Dose 1 UNIT; Start 07/19/18 at 18:00 Miscellaneous Information 1 ea NOTE XX ; Start 07/19/18 at 15:00 Glucose (Glutose) 15 gm Q15M PRN PO DECREASED GLUCOSE; Start 07/19/18 at 15:00 Glucose (Glutose) 22.5 gm Q15M PRN PO DECREASED GLUCOSE; Start 07/19/18 at 15:00 Dextrose (D50w Syringe) 25 ml Q15M PRN IV DECREASED GLUCOSE; Start 07/19/18 at 15:00 Dextrose (D50w Syringe) 50 ml Q15M PRN IV DECREASED GLUCOSE; Start 07/19/18 at 15:00 Glucagon (Glucagen) 1 mg Q15M PRN IM DECREASED GLUCOSE; Start 07/19/18 at 15:00 Glucose (Glutose) 15 gm Q15M PRN BUCCAL DECREASED GLUCOSE; Start 07/19/18 at 15:00 Jeremias Martinez DO Jul 21, 2018 13:10
--- NOTE | 2018-07-21 14:34 | PREAC ---
Date/Time of Note Date/Time of Note DATE: 07/21/18 TIME: 14:33 Anesthesia Eval and Record Evaluation Time Pre-Procedure Interview DATE: 07/21/18 TIME: 14:33 Age 32 Sex male NPO: 8 hrs Preoperative diagnosis CHEST PAIN/ABDOMINAL PAIN Planned procedure EGD Past Medical History Past Medical History: Includes Cardio: HTN Endo: Diabetes Renal: ESRD on dialysis Surgery & Anesthesia Issues No known issue Meds Anticoagulation: No Beta Braden within 24 hr: Yes Reported Medications Ergocalciferol (Vitamin D2) (VITAMIN D2) 50,000 Unit Capsule, 50931 UNIT PO Q7D, CAP 07/10/18 Escitalopram Oxalate* (Escitalopram Oxalate*) 10 Mg Tablet, 10 MG PO DAILY, #30 TAB 07/10/18 Nifedipine* (Nifedipine ER*) 30 Mg Tablet.sa, 30 MG PO DAILY, TAB.SA 06/25/18 Gabapentin* (Gabapentin*) 300 Mg Capsule, 300 MG PO QHS, #60 CAP 06/25/18 Carvedilol* (Coreg*) 12.5 Mg Tablet, 12.5 MG PO BID, #60 TAB 06/25/18 Simvastatin* (Zocor*) 20 Mg Tablet, 20 MG PO QHS, #30 TAB 04/02/18 Furosemide* (Furosemide*) 40 Mg Tablet, 40 MG PO BID, TAB 12/05/17 Calcium Acetate* (Calcium Acetate*) 667 Mg Capsule, 2001 MG PO WITH MEALS, #30 CAP 12/05/17 Current Medications Nitroglycerin (Nitroglycerin (Sl Tab) 0.4 Mg) 1 tab Q5M UP TO 3 DOSES PRN SL .CHEST PAIN Last administered on 07/15/18at 06:40; Admin Dose 1 TAB; Start 07/15/18 at 06:30 IV Flush (NS 3 ml) 3 ml PER PROTOCOL IV ; Start 07/15/18 at 12:30 Acetaminophen/ Hydrocodone Bitart ([place] (5/325)) 1 tab Q6H PRN PO .MOD PAIN 4- 6; Start 07/15/18 at 12:30 Morphine Sulfate (morphine) 2 mg Q4H PRN IV .SEVERE PAIN 7-10 Last administered on 07/21/18at 13:46; Admin Dose 2 MG; Start 07/15/18 at 12:30 Docusate Sodium (Colace) 100 mg Q12H PRN PO .CONSTIPATION; Start 07/15/18 at 12:30 Famotidine (Pepcid) 20 mg DAILY PO Last administered on 07/21/18 08:14; Admin Dose 20 MG; Start 07/16/18 at 09:00 Aspirin (Aspirin) 81 mg DAILY PO Last administered on 07/20/18 09:32; Admin Dose 81 MG; Start 07/15/18 at 15:00; Status Hold Atorvastatin Calcium (Lipitor) 40 mg HS PO Last administered on 07/20/18 22:11; Admin Dose 40 MG; Start 07/15/18 at 21:00 Metoprolol Tartrate (Lopressor) 50 mg Q8 PO Last administered on 07/20/18 22:11; Admin Dose 50 MG; Start 07/15/18 at 15:00 Escitalopram Oxalate (Lexapro) 10 mg DAILY PO Last administered on 07/21/18 08:15; Admin Dose 10 MG; Start 07/16/18 at 09:00 Furosemide (Lasix) 40 mg BID PO Last administered on 07/21/18 08:15; Admin Dose 40 MG; Start 07/15/18 at 21:00 Gabapentin (Neurontin) 300 mg QHS PO Last administered on 07/20/18 22:11; Admin Dose 300 MG; Start 07/15/18 at 21:00 Hydralazine HCl (Apresoline) 10 mg Q4H PRN IV sbp>165 Last administered on 07/20/18 11:41; Admin Dose 10 MG; Start 07/15/18 at 23:00 Ondansetron HCl (Zofran Inj) 4 mg Q4H PRN IV NAUSEA AND/OR VOMITING Last administered on 07/21/18 07:17; Admin Dose 4 MG; Start 07/16/18 at 13:00 Metronidazole (Flagyl) 500 mg Q8 PO Last administered on 07/20/18 22:10; Admin Dose 500 MG; Start 07/16/18 at 22:00 Isosorbide Mononitrate (Imdur) 30 mg DAILY PO Last administered on 07/21/18 08:15; Admin Dose 30 MG; Start 07/16/18 at 19:00 Nifedipine (Procardia Xl) 60 mg DAILY PO Last administered on 07/21/18 08:14; Admin Dose 60 MG; Start 07/18/18 at 09:00 Heparin Sodium (Porcine) (Heparin (5000 Units/1ml)) 5,000 unit BID SC Last administered on 07/20/18at 22:22; Admin Dose 5,000 UNIT; Start 07/18/18 at 13:00; Status Hold Diagnostic Test (Pha) (Accu-Chek) 1 ea 02 XX ; Start 07/20/18 at 02:00 Insulin Aspart (Novolog Insulin Pen) NOVOLOG *MILD* ALGORITHM WITH MEALS BEDTIME SC Last administered on 07/20/18at 21:00; Admin Dose 1 UNIT; Start 07/19/18 at 18:00 Miscellaneous Information 1 ea NOTE XX ; Start 07/19/18 at 15:00 Glucose (Glutose) 15 gm Q15M PRN PO DECREASED GLUCOSE; Start 07/19/18 at 15:00 Glucose (Glutose) 22.5 gm Q15M PRN PO DECREASED GLUCOSE; Start 07/19/18 at 15:00 Dextrose (D50w Syringe) 25 ml Q15M PRN IV DECREASED GLUCOSE; Start 07/19/18 at 15:00 Dextrose (D50w Syringe) 50 ml Q15M PRN IV DECREASED GLUCOSE; Start 07/19/18 at 15:00 Glucagon (Glucagen) 1 mg Q15M PRN IM DECREASED GLUCOSE; Start 07/19/18 at 15:00 Glucose (Glutose) 15 gm Q15M PRN BUCCAL DECREASED GLUCOSE; Start 07/19/18 at 15:00 Meds reviewed: Yes Allergies Coded Allergies: benazepril (Verified Allergy, Unknown, 07/10/18) Allergies Reviewed: Yes Labs/Studies Labs Reviewed: Reviewed by anesthesiologist Result Diagram: 07/21/18 0541 07/21/18 0541 Laboratory Tests 07/21/18 05:41 test: N/A Pre-procedure Exam Last vitals Vital Signs Date Temp Pulse Resp B/P (MAP) Pulse Ox O2 O2 Flow FiO2 Time Delivery Rate 07/21/18 98.4 63 19 134/71 97 11:20 (92) 07/21/18 Room Air 03:51 Airway: Adequate mouth opening, Adequate thyromental dist Mallampati: Mallampati II Teeth: Normal Lung: Normal Heart: Normal ASA Physical Status ASA physical status: 3 Emergency: None Planned Anesthetic General/MAC: MAC Planned Pain Management Parenteral pain med Pre-operative Attestations Prior to commencing anesthesia and surgery, the patient was re-evaluated, there was verification of: *The patient's identity *The results of appropriate recent lab work and preoperative vital signs *The above evaluation not changing prior to induction *Anesthetic plan, risk benefits, alternative and complications discussed with patient/family; questions answered; patient/family understands, accepts and wishes to proceed. SILVANA BOCANEGRA Jul 21, 2018 14:34
[2018-07-21] MEDS ORDERED: PROPOFOL 40 ML ONE (14:38)
[2018-07-21] MEDS ORDERED: LIDOCAINE 2% (SDV) 5 ML INJ ONE (14:38)
--- NOTE | 2018-07-21 14:43 | PN ---
Date/Time of Note Date/Time of Note DATE: 07/21/18 TIME: 14:40 Assessment/Plan VTE Prophylaxis Risk score (from Nsg)>0 risk: 1 SCD applied (from Nsg): No SCD contraindicated: low risk/ambulating Pharmacological prophylaxis: NA/contraindicated Pharm contraindication: low risk/ambulating Lines/Catheters IV Catheter Type (from Nrs): Peripheral IV Urinary Cath still in place: No Assessment/Plan Hospital Course 32 y/o with 1. Chest pain. At this time, the patient had a positive troponin; however, EKG did not show any acute significant abnormalities. Elevated trop likely secondary to NSTEMI vs tropnin leak however Trop had been neg in past troponin leak 2. Left upper quadrant pain radiating to the back at this time. Lipase is norm al. The patient also to have episodes of nausea, vomiting and diarrhea. The patient had a recent CAT scan done, which was negative. CT angios only shows 40% disease, ct of the chest shows is negative for pulmonary embolism CT of the thoracic and lumbar spines Multilevel broad-based bulges at the L1-2 through L5-S1 levels with mild central canal stenosis at L3-4 and L4-5. . Multilevel neural foraminal stenosis at the L2-3 through L5-S1 levels undergoing GI evaluation 3. Hypertension, uncontrolled. 4. Hyperkalemia. 5. Mild leukocytosis. 6. Diabetes. 7. Hypertension. 8. Hyperlipidemia. 9. Non-ST elevation myocardial infarction. 10. End-stage renal disease, on hemodialysis. 11. Diabetes with complication of diabetic nephropathy, retinopathy, neuropathy. Plan -EGD today -? ERCP -HD tomorrow - cw mtp/nifedipine/lasix - pain Control - renally dose all meds -With cardiac/GI recs Result Diagram: 07/21/18 0541 07/21/18 0541 Results 24hrs Laboratory Tests Test 07/20/18 22:06 07/21/18 02:43 07/21/18 05:41 07/21/18 07:57 Bedside Glucose 195 154 141 White Blood Count 5.6 Red Blood Count 3.66 L Hemoglobin 11.2 L Hematocrit 34.3 L Mean Corpuscular 93.7 Volume Mean Corpuscular 30.6 Hemoglobin Mean Corpuscular 32.7 Hemoglobin Concent Red Cell 13.0 Distribution Width Platelet Count 187 Mean Platelet Volume 12.9 H Immature 0.400 Granulocytes % Neutrophils % 56.5 Lymphocytes % 26.6 Monocytes % 8.8 Eosinophils % 6.3 Basophils % 1.4 Nucleated Red Blood 0.0 Cells % Immature 0.020 Granulocytes # Neutrophils # 3.2 Lymphocytes # 1.5 Monocytes # 0.5 Eosinophils # 0.4 Basophils # 0.1 Nucleated Red Blood 0.0 Cells # Sodium Level 138 Potassium Level 4.7 Chloride Level 95 L Carbon Dioxide Level 34 H Anion Gap 9 # Blood Urea Nitrogen 33 #H Creatinine 9.50 H Est Glomerular 6 L Filtrat Rate mL/min Glucose Level 154 Calcium Level 8.9 Test 07/21/18 11:48 Bedside Glucose 160 Subjective 24 Hr Interval Summary Free Text/Dictation Patient waiting for EGD quite frustrated that he is n.p.o. Pain on the left flank and back Exam/Review of Systems Exam Vitals Vital Signs Date Temp Pulse Resp B/P (MAP) Pulse Ox O2 O2 Flow FiO2 Time Delivery Rate 07/21/18 97.1 70 20 171/86 100 Room Air 14:37 (114) Intake and Output 07/20/18 07/20/18 07/21/18 1515:00 23:00 07:00 IntakeIntake Total 1600 ml OutputOutput Total 2700 ml BalanceBalance -1100 ml Exam right chest permcath Constitutional: alert, oriented ENMT: nl external ears & nose Neck: supple Respiratory: diminished breath sounds Cardiovascular: regular rate and rhythm Gastrointestinal: soft Results Results 24hrs Laboratory Tests Test 07/20/18 22:06 07/21/18 02:43 07/21/18 05:41 07/21/18 07:57 Bedside Glucose 195 154 141 White Blood Count 5.6 Red Blood Count 3.66 L Hemoglobin 11.2 L Hematocrit 34.3 L Mean Corpuscular 93.7 Volume Mean Corpuscular 30.6 Hemoglobin Mean Corpuscular 32.7 Hemoglobin Concent Red Cell 13.0 Distribution Width Platelet Count 187 Mean Platelet Volume 12.9 H Immature 0.400 Granulocytes % Neutrophils % 56.5 Lymphocytes % 26.6 Monocytes % 8.8 Eosinophils % 6.3 Basophils % 1.4 Nucleated Red Blood 0.0 Cells % Immature 0.020 Granulocytes # Neutrophils # 3.2 Lymphocytes # 1.5 Monocytes # 0.5 Eosinophils # 0.4 Basophils # 0.1 Nucleated Red Blood 0.0 Cells # Sodium Level 138 Potassium Level 4.7 Chloride Level 95 L Carbon Dioxide Level 34 H Anion Gap 9 # Blood Urea Nitrogen 33 #H Creatinine 9.50 H Est Glomerular 6 L Filtrat Rate mL/min Glucose Level 154 Calcium Level 8.9 Test 07/21/18 11:48 Bedside Glucose 160 Medications Medication Current Medications Nitroglycerin (Nitroglycerin (Sl Tab) 0.4 Mg) 1 tab Q5M UP TO 3 DOSES PRN SL .CHEST PAIN Last administered on 07/15/18 06:40; Admin Dose 1 TAB; Start 07/15/18 at 06:30 IV Flush (NS 3 ml) 3 ml PER PROTOCOL IV ; Start 07/15/18 at 12:30 Acetaminophen/ Hydrocodone Bitart ([place] (5/325)) 1 tab Q6H PRN PO .MOD PAIN 4- 6; Start 07/15/18 at 12:30 Morphine Sulfate (morphine) 2 mg Q4H PRN IV .SEVERE PAIN 7-10 Last administered on 07/21/18at 13:46; Admin Dose 2 MG; Start 07/15/18 at 12:30 Docusate Sodium (Colace) 100 mg Q12H PRN PO .CONSTIPATION; Start 07/15/18 at 12:30 Famotidine (Pepcid) 20 mg DAILY PO Last administered on 07/21/18 08:14; Admin Dose 20 MG; Start 07/16/18 at 09:00 Aspirin (Aspirin) 81 mg DAILY PO Last administered on 07/20/18 09:32; Admin Dose 81 MG; Start 07/15/18 at 15:00; Status Hold Atorvastatin Calcium (Lipitor) 40 mg HS PO Last administered on 07/20/18at 22:11; Admin Dose 40 MG; Start 07/15/18 at 21:00 Metoprolol Tartrate (Lopressor) 50 mg Q8 PO Last administered on 07/20/18 22:11; Admin Dose 50 MG; Start 07/15/18 at 15:00 Escitalopram Oxalate (Lexapro) 10 mg DAILY PO Last administered on 07/21/18 08:15; Admin Dose 10 MG; Start 07/16/18 at 09:00 Furosemide (Lasix) 40 mg BID PO Last administered on 07/21/18 08:15; Admin Dose 40 MG; Start 07/15/18 at 21:00 Gabapentin (Neurontin) 300 mg QHS PO Last administered on 07/20/18at 22:11; Admin Dose 300 MG; Start 07/15/18 at 21:00 Hydralazine HCl (Apresoline) 10 mg Q4H PRN IV sbp>165 Last administered on 07/20/18at 11:41; Admin Dose 10 MG; Start 07/15/18 at 23:00 Ondansetron HCl (Zofran Inj) 4 mg Q4H PRN IV NAUSEA AND/OR VOMITING Last administered on 07/21/18at 07:17; Admin Dose 4 MG; Start 07/16/18 at 13:00 Metronidazole (Flagyl) 500 mg Q8 PO Last administered on 07/20/18at 22:10; Admin Dose 500 MG; Start 07/16/18 at 22:00 Isosorbide Mononitrate (Imdur) 30 mg DAILY PO Last administered on 07/21/18 08:15; Admin Dose 30 MG; Start 07/16/18 at 19:00 Nifedipine (Procardia Xl) 60 mg DAILY PO Last administered on 07/21/18at 08:14; Admin Dose 60 MG; Start 07/18/18 at 09:00 Heparin Sodium (Porcine) (Heparin (5000 Units/1ml)) 5,000 unit BID SC Last administered on 07/20/18at 22:22; Admin Dose 5,000 UNIT; Start 07/18/18 at 13:00; Status Hold Diagnostic Test (Pha) (Accu-Chek) 1 ea 02 XX ; Start 07/20/18 at 02:00 Insulin Aspart (Novolog Insulin Pen) NOVOLOG *MILD* ALGORITHM WITH MEALS BEDTIME SC Last administered on 07/20/18at 21:00; Admin Dose 1 UNIT; Start 07/19/18 at 18:00 Miscellaneous Information 1 ea NOTE XX ; Start 07/19/18 at 15:00 Glucose (Glutose) 15 gm Q15M PRN PO DECREASED GLUCOSE; Start 07/19/18 at 15:00 Glucose (Glutose) 22.5 gm Q15M PRN PO DECREASED GLUCOSE; Start 07/19/18 at 15:00 Dextrose (D50w Syringe) 25 ml Q15M PRN IV DECREASED GLUCOSE; Start 07/19/18 at 15:00 Dextrose (D50w Syringe) 50 ml Q15M PRN IV DECREASED GLUCOSE; Start 07/19/18 at 15:00 Glucagon (Glucagen) 1 mg Q15M PRN IM DECREASED GLUCOSE; Start 07/19/18 at 15:00 Glucose (Glutose) 15 gm Q15M PRN BUCCAL DECREASED GLUCOSE; Start 07/19/18 at 15:00 Fentanyl (Sublimaze) 25 mcg PACU ORDER PRN IV MILD PAIN 1-3; Start 07/21/18 at 15:00; Stop 07/21/18 at 19:00 Ondansetron HCl (Zofran Inj) 4 mg PACU ORDER PRN IV NAUSEA/VOMITING; Start 07/21/18 at 15:00; Stop 07/21/18 at 19:00 Metoclopramide HCl (Reglan) 10 mg PACU ORDER PRN IV NAUSEA/VOMITING; Start 07/21/18 at 15:00; Stop 07/21/18 at 19:00 Labetalol HCl (Labetalol) 5 mg PACU ORDER PRN IV HIGH BLOOD PRESSURE; Start 07/21/18 at 15:00; Stop 07/21/18 at 19:00 Hydralazine HCl (Apresoline) 5 mg PACU ORDER PRN IV HIGH BLOOD PRESSURE; Start 07/21/18 at 15:00; Stop 07/21/18 at 19:00 Ephedrine Sulfate 5 mg PACU ORDER PRN IV BLOOD PRESSURE SUPPORT; Start 07/21/18 at 15:00; Stop 07/21/18 at 19:00 MIKE GIFFORD MD Jul 21, 2018 14:43
--- NOTE | 2018-07-21 14:59 | PAC ---
Date/Time of Note Date/Time of Note DATE: 07/21/18 TIME: 14:59 Post-Anesthesia Notes Post-Anesthesia Note Last documented vital signs Vital Signs Date Temp Pulse Resp B/P (MAP) Pulse Ox O2 O2 Flow FiO2 Time Delivery Rate 07/21/18 98.4 63 19 134/71 97 1459 (92) 07/21/18 Room Air 03:51 Activity: WNL Respiratory function: WNL Cardiovascular function: WNL Mental status: Baseline Pain reasonably controlled: Yes Hydration appropriate: Yes Nausea/Vomiting absent: Yes SILVANA BOCANEGRA Jul 21, 2018 14:59
[2018-07-21] MEDS ORDERED: FENTAnyl 50 MCG/ML VIAL IV PRN (15:00)
[2018-07-21] MEDS ORDERED: METOCLOPRAMIDE 10 MG INJ IV PRN (15:00)
[2018-07-21] MEDS ORDERED: ONDANSETRON 4 MG INJ IV PRN (15:00)
[2018-07-21] MEDS ORDERED: LABETALOL HCL 20MG INJ IV PRN (15:00)
[2018-07-21] MEDS ORDERED: EPHEDrine SULFATE 50 MG/5 ML SYG IV PRN (15:00)
[2018-07-21] MEDS ORDERED: hydrALAzine 20 MG INJ IV PRN (15:00)
[2018-07-21] MEDS: METOCLOPRAMIDE 10 MG INJ IV SCH ×2 (16:50→21:59)
[2018-07-21] MEDS: GABAPENTIN 300 MG CAP PO SCH (20:54)
[2018-07-21] MEDS: ATORVASTATIN 40 MG TAB PO SCH (20:55)
[2018-07-21] MEDS: HEPARIN 5,000 UNIT/1 ML VIAL SC SCH (21:08)
[2018-07-22] VITALS (18 sets, daily range): BP systolic 116–186; BP diastolic 64–91; PULSE 58–70; RESP 18–20
[2018-07-22] MEDS: morphine 2 MG INJ IV PRN ×5 (02:52→21:18)
[2018-07-22] MEDS: ACCU-CHEK XX SCH (02:59)
[2018-07-22] MEDS: METOCLOPRAMIDE 10 MG INJ IV SCH ×3 (06:02→21:18)
[2018-07-22] MEDS: METOPROLOL 50 MG TAB PO SCH ×3 (06:03→21:17)
[2018-07-22] MEDS: metroNIDAZOLE 500 MG TAB PO SCH ×3 (06:04→21:17)
[2018-07-22] MEDS: ASPIRIN 81 MG TAB PO SCH (08:15)
[2018-07-22] MEDS: NIFEdipine (XL) 60 MG TAB PO SCH (08:15)
[2018-07-22] MEDS: ESCITALOPRAM 10 MG TAB PO SCH (08:15)
[2018-07-22] MEDS: FAMOTIDINE 20 MG TAB PO SCH (08:16)
[2018-07-22] MEDS: FUROSEMIDE 40 MG TAB PO SCH ×2 (08:16→20:59)
[2018-07-22] MEDS: ISOSORBIDE MONONITRATE(SR)30 MG TAB PO SCH (08:17)
[2018-07-22] MEDS: HEPARIN 5,000 UNIT/1 ML VIAL SC SCH ×2 (08:20→21:05)
[2018-07-22] MEDS: INSULIN ASPART [NOVOLOG] 3 ML PEN SC SCH ×4 (08:21→21:04)
--- NOTE | 2018-07-22 08:44 | CONS ---
Assessment/Plan Assessment/Plan Hospital Course (Demo Recall) 32 yo male with abd pain 1. Chest pain with elevated troponin, may be due to the troponin leak. 2. Left upper quadrant pain radiating to back. 3. Hypertension. 4. Hyperkalemia. 5. Diabetes mellitus. 6. Hypertension. 7. End-stage renal disease. 8. Diabetes mellitus 9. 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 Duong Consultation Date/Type/Reason Admit Date/Time Jul 15, 2018 at 07:14 Initial Consult Date Date/Time of Note DATE: 07/22/18 TIME: 08:39 24 HR Interval Summary Free Text/Dictation Pt is tolerating regular diet. States the pain is much less. The pain is from epigastric area radiating along LUQ to back. Lipase wnl. Receiving HD. He has not had a BM since 07/17. Exam/Review of Systems Exam Vitals Vital Signs Date Temp Pulse Resp B/P (MAP) Pulse Ox O2 O2 Flow FiO2 Time Delivery Rate 07/22/18 98.3 64 18 122/68 97 02:00 (86) 07/21/18 Nasal 16:01 Cannula 07/21/18 8.0 15:09 Intake and Output 07/21/18 07/21/18 07/22/18 1515:00 23:00 07:00 IntakeIntake Total 500 ml BalanceBalance 500 ml Constitutional: alert, oriented Psych: no complaints Head: normocephalic Eyes: other (Rt pupil reactive to light, anteric) ENMT: nl lips & teeth, mucosa pink and moist Respiratory: clear to auscultation Cardiovascular: regular rate and rhythm Gastrointestinal: soft, tender (mild TTP epigastric area) Musculoskeletal: nl extremities to inspection Neurological: nl mental status Results Result Diagram: 07/21/18 0541 07/21/18 0541 Results 24hrs Laboratory Tests Test 07/21/18 11:48 07/21/18 16:48 07/21/18 21:01 07/22/18 02:57 Bedside Glucose 160 138 181 167 Test 07/22/18 08:14 Bedside Glucose 159 Medications Medication Current Medications Nitroglycerin (Nitroglycerin (Sl Tab) 0.4 Mg) 1 tab Q5M UP TO 3 DOSES PRN SL .CHEST PAIN Last administered on 07/15/18 06:40; Admin Dose 1 TAB; Start 07/15/18 at 06:30 IV Flush (NS 3 ml) 3 ml PER PROTOCOL IV ; Start 07/15/18 at 12:30 Acetaminophen/ Hydrocodone Bitart ([place] (5/325)) 1 tab Q6H PRN PO .MOD PAIN 4- 6; Start 07/15/18 at 12:30 Morphine Sulfate (morphine) 2 mg Q4H PRN IV .SEVERE PAIN 7-10 Last administered on 07/22/18 07:25; Admin Dose 2 MG; Start 07/15/18 at 12:30 Docusate Sodium (Colace) 100 mg Q12H PRN PO .CONSTIPATION; Start 07/15/18 at 12:30 Famotidine (Pepcid) 20 mg DAILY PO Last administered on 07/22/18 08:16; Admin Dose 20 MG; Start 07/16/18 at 09:00 Aspirin (Aspirin) 81 mg DAILY PO Last administered on 07/22/18 08:15; Admin Dose 81 MG; Start 07/15/18 at 15:00 Atorvastatin Calcium (Lipitor) 40 mg HS PO Last administered on 07/21/18 20:55; Admin Dose 40 MG; Start 07/15/18 at 21:00 Metoprolol Tartrate (Lopressor) 50 mg Q8 PO Last administered on 07/22/18 06:03; Admin Dose 50 MG; Start 07/15/18 at 15:00 Escitalopram Oxalate (Lexapro) 10 mg DAILY PO Last administered on 07/22/18 08:15; Admin Dose 10 MG; Start 07/16/18 at 09:00 Furosemide (Lasix) 40 mg BID PO Last administered on 07/21/18 20:55; Admin Dose 40 MG; Start 07/15/18 at 21:00 Gabapentin (Neurontin) 300 mg QHS PO Last administered on 07/21/18 20:54; Admin Dose 300 MG; Start 07/15/18 at 21:00 Hydralazine HCl (Apresoline) 10 mg Q4H PRN IV sbp>165 Last administered on 07/20/18at 11:41; Admin Dose 10 MG; Start 07/15/18 at 23:00 Ondansetron HCl (Zofran Inj) 4 mg Q4H PRN IV NAUSEA AND/OR VOMITING Last administered on 07/21/18 07:17; Admin Dose 4 MG; Start 07/16/18 at 13:00 Metronidazole (Flagyl) 500 mg Q8 PO Last administered on 07/22/18 06:04; Admin Dose 500 MG; Start 07/16/18 at 22:00 Isosorbide Mononitrate (Imdur) 30 mg DAILY PO Last administered on 07/21/18 08:15; Admin Dose 30 MG; Start 07/16/18 at 19:00 Nifedipine (Procardia Xl) 60 mg DAILY PO Last administered on 07/21/18 08:14; Admin Dose 60 MG; Start 07/18/18 at 09:00 Heparin Sodium (Porcine) (Heparin (5000 Units/1ml)) 5,000 unit BID SC Last administered on 07/22/18 08:20; Admin Dose 5,000 UNIT; Start 07/18/18 at 13:00 Diagnostic Test (Pha) (Accu-Chek) 1 ea 02 XX Last administered on 07/22/18at 02:59; Admin Dose 1 EA; Start 07/20/18 at 02:00 Insulin Aspart (Novolog Insulin Pen) NOVOLOG *MILD* ALGORITHM WITH MEALS BEDTIME SC Last administered on 07/22/18 08:21; Admin Dose 1 UNIT; Start 07/19/18 at 18:00 Miscellaneous Information 1 ea NOTE XX ; Start 07/19/18 at 15:00 Glucose (Glutose) 15 gm Q15M PRN PO DECREASED GLUCOSE; Start 07/19/18 at 15:00 Glucose (Glutose) 22.5 gm Q15M PRN PO DECREASED GLUCOSE; Start 07/19/18 at 15:00 Dextrose (D50w Syringe) 25 ml Q15M PRN IV DECREASED GLUCOSE; Start 07/19/18 at 15:00 Dextrose (D50w Syringe) 50 ml Q15M PRN IV DECREASED GLUCOSE; Start 07/19/18 at 15:00 Glucagon (Glucagen) 1 mg Q15M PRN IM DECREASED GLUCOSE; Start 07/19/18 at 15:00 Glucose (Glutose) 15 gm Q15M PRN BUCCAL DECREASED GLUCOSE; Start 07/19/18 at 15:00 Metoclopramide HCl (Reglan) 5 mg Q8 IV Last administered on 07/22/18at 06:02; Admin Dose 5 MG; Start 07/21/18 at 16:00 SHAWN DOE Jul 22, 2018 08:44
[2018-07-22] MEDS ORDERED: BISACODYL 10 MG SUPP PR PRN (09:00)
[2018-07-22] MEDS: HEPARIN 1000 UNITS/ML 10 ML INJ CATHETER SCH (10:52)
[2018-07-22] MEDS: LUBIPROSTONE 24 MCG CAP PO SCH ×2 (11:28→21:00)
[2018-07-22] MEDS: POLYETHYLENE GLYCOL 17 GM PACKET PO SCH (11:28)
--- NOTE | 2018-07-22 13:35 | CONS ---
Assessment/Plan Assessment/Plan Hospital Course (Demo Recall) Chest, abdominal and flank pain Elevated troponin-trending down Low normal left ventricular ejection fraction 50-55% End-stage renal disease hemodialysis Hypertension, uncontrolled Diabetes Vasculopathy -CT coronary angiogram with 50% plaque in LAD, otherwise no obstructive coronary artery disease. -CT pulmonary angiogram with no evidence of pulmonary emboli -Patient's complaints are of chest discomfort with inspiration as well as abdominal pain, and pain elicited with palpation of chest wall -Patient status post EGD, results pending -Continue statin therapy, beta-luis f, blood pressure control -Fluid management via hemodialysis as per nephrology Consultation Date/Type/Reason Admit Date/Time Jul 15, 2018 at 07:14 Initial Consult Date Type of Consult Cardiology Date/Time of Note DATE: 07/22/18 TIME: 13:32 24 HR Interval Summary Free Text/Dictation Overall feeling better. Still with left-sided pain it is improved. Denies shortness of breath Exam/Review of Systems Vital Signs Vitals Vital Signs Date Temp Pulse Resp B/P (MAP) Pulse Ox O2 O2 Flow FiO2 Time Delivery Rate 07/22/18 60 10:40 07/22/18 18 126/70 96 08:00 (88) 07/22/18 Room Air 07:30 07/22/18 98.3 02:00 07/21/18 8.0 15:09 Intake and Output 07/21/18 07/21/18 07/22/18 1515:00 23:00 07:00 IntakeIntake Total 500 ml BalanceBalance 500 ml Exam Constitutional: alert, oriented Head: normocephalic Respiratory: other (Coarse breath sounds bilaterally, no wheezing) Cardiovascular: regular rate and rhythm, other (S1-S2 heard) Gastrointestinal: soft, non-tender, bowel sounds Extremities: edema Labs Result Diagram: 07/21/18 0541 07/21/18 0541 Results 24hrs Laboratory Tests Test 07/21/18 16:48 07/21/18 21:01 07/22/18 02:57 07/22/18 08:14 Bedside Glucose 138 181 167 159 Test 07/22/18 12:33 Bedside Glucose 163 Medications Medications Current Medications Nitroglycerin (Nitroglycerin (Sl Tab) 0.4 Mg) 1 tab Q5M UP TO 3 DOSES PRN SL .CHEST PAIN Last administered on 07/15/18at 06:40; Admin Dose 1 TAB; Start 07/15/18 at 06:30 IV Flush (NS 3 ml) 3 ml PER PROTOCOL IV ; Start 07/15/18 at 12:30 Acetaminophen/ Hydrocodone Bitart ([place] (5/325)) 1 tab Q6H PRN PO .MOD PAIN 4- 6; Start 07/15/18 at 12:30 Morphine Sulfate (morphine) 2 mg Q4H PRN IV .SEVERE PAIN 7-10 Last administered on 07/22/18 11:27; Admin Dose 2 MG; Start 07/15/18 at 12:30 Docusate Sodium (Colace) 100 mg Q12H PRN PO .CONSTIPATION; Start 07/15/18 at 12:30 Famotidine (Pepcid) 20 mg DAILY PO Last administered on 07/22/18 08:16; Admin Dose 20 MG; Start 07/16/18 at 09:00 Aspirin (Aspirin) 81 mg DAILY PO Last administered on 07/22/18 08:15; Admin Dose 81 MG; Start 07/15/18 at 15:00 Atorvastatin Calcium (Lipitor) 40 mg HS PO Last administered on 07/21/18 20:55; Admin Dose 40 MG; Start 07/15/18 at 21:00 Metoprolol Tartrate (Lopressor) 50 mg Q8 PO Last administered on 07/22/18 06:03; Admin Dose 50 MG; Start 07/15/18 at 15:00 Escitalopram Oxalate (Lexapro) 10 mg DAILY PO Last administered on 07/22/18 08:15; Admin Dose 10 MG; Start 07/16/18 at 09:00 Furosemide (Lasix) 40 mg BID PO Last administered on 07/21/18 20:55; Admin Dose 40 MG; Start 07/15/18 at 21:00 Gabapentin (Neurontin) 300 mg QHS PO Last administered on 07/21/18 20:54; Admin Dose 300 MG; Start 07/15/18 at 21:00 Hydralazine HCl (Apresoline) 10 mg Q4H PRN IV sbp>165 Last administered on 07/20/18 11:41; Admin Dose 10 MG; Start 07/15/18 at 23:00 Ondansetron HCl (Zofran Inj) 4 mg Q4H PRN IV NAUSEA AND/OR VOMITING Last administered on 07/21/18 07:17; Admin Dose 4 MG; Start 07/16/18 at 13:00 Metronidazole (Flagyl) 500 mg Q8 PO Last administered on 07/22/18 06:04; Admin Dose 500 MG; Start 07/16/18 at 22:00 Isosorbide Mononitrate (Imdur) 30 mg DAILY PO Last administered on 07/21/18 08:15; Admin Dose 30 MG; Start 07/16/18 at 19:00 Nifedipine (Procardia Xl) 60 mg DAILY PO Last administered on 07/21/18 08:14; Admin Dose 60 MG; Start 07/18/18 at 09:00 Heparin Sodium (Porcine) (Heparin (5000 Units/1ml)) 5,000 unit BID SC Last administered on 07/22/18 08:20; Admin Dose 5,000 UNIT; Start 07/18/18 at 13:00 Diagnostic Test (Pha) (Accu-Chek) 1 ea 02 XX Last administered on 07/22/18 02:59; Admin Dose 1 EA; Start 07/20/18 at 02:00 Insulin Aspart (Novolog Insulin Pen) NOVOLOG *MILD* ALGORITHM WITH MEALS BEDTIME SC Last administered on 07/22/18 12:39; Admin Dose 1 UNIT; Start 07/19/18 at 18:00 Miscellaneous Information 1 ea NOTE XX ; Start 07/19/18 at 15:00 Glucose (Glutose) 15 gm Q15M PRN PO DECREASED GLUCOSE; Start 07/19/18 at 15:00 Glucose (Glutose) 22.5 gm Q15M PRN PO DECREASED GLUCOSE; Start 07/19/18 at 15:00 Dextrose (D50w Syringe) 25 ml Q15M PRN IV DECREASED GLUCOSE; Start 07/19/18 at 15:00 Dextrose (D50w Syringe) 50 ml Q15M PRN IV DECREASED GLUCOSE; Start 07/19/18 at 15:00 Glucagon (Glucagen) 1 mg Q15M PRN IM DECREASED GLUCOSE; Start 07/19/18 at 15:00 Glucose (Glutose) 15 gm Q15M PRN BUCCAL DECREASED GLUCOSE; Start 07/19/18 at 15:00 Metoclopramide HCl (Reglan) 5 mg Q8 IV Last administered on 4/23/19at 12:38; Admin Dose 5 MG; Start 07/21/18 at 16:00 Lubiprostone (Amitiza) 24 mcg BID PO Last administered on 07/22/18at 11:28; Admin Dose 24 MCG; Start 07/22/18 at 09:00 Polyethylene Glycol (Miralax) 17 gm DAILY PO Last administered on 07/22/18at 11:28; Admin Dose 17 GM; Start 07/22/18 at 09:00 Bisacodyl (Dulcolax Supp) 10 mg Q48H PRN [place] CONSTIPATION; Start 07/22/18 at 09:00 Heparin Sodium (Porcine) (Heparin (1000 Units/ml)) 3,300 unit AFTER DIALYSIS CATHETER Last administered on 07/22/18at 10:52; Admin Dose 3,300 UNIT; Start 07/22/18 at 10:30 Jeremias Martinez DO Jul 22, 2018 13:35
--- NOTE | 2018-07-22 15:09 | PN ---
Date/Time of Note Date/Time of Note DATE: 07/22/18 TIME: 15:08 Assessment/Plan VTE Prophylaxis Risk score (from Nsg)>0 risk: 3 SCD applied (from Nsg): Yes Pharmacological prophylaxis: NA/contraindicated Pharm contraindication: low risk/ambulating Lines/Catheters IV Catheter Type (from Nrsg): Peripheral IV Urinary Cath still in place: No Assessment/Plan Hospital Course 32 y/o with 1. Chest pain. At this time, the patient had a positive troponin; however, EKG did not show any acute significant abnormalities. Elevated trop likely secondary to NSTEMI vs tropnin leak however Trop had been neg in past troponin leak 2. Left upper quadrant pain radiating to the back at this time. Lipase is normal. The patient also to have episodes of nausea, vomiting and diarrhea. The patient had a recent CAT scan done, which was negative. CT angios only shows 40% disease, ct of the chest shows is negative for pulmonary embolism CT of the thoracic and lumbar spines Multilevel broad-based bulges at the L1-2 through L5-S1 levels with mild central canal stenosis at L3-4 and L4-5. . Multilevel neural foraminal stenosis at the L2-3 through L5-S1 levels undergoing GI evaluation 3. Hypertension, uncontrolled. 4. Hyperkalemia. 5. Mild leukocytosis. 6. Diabetes. 7. Hypertension. 8. Hyperlipidemia. 9. Non-ST elevation myocardial infarction. 10. End-stage renal disease, on hemodialysis. 11. Diabetes with complication of diabetic nephropathy, retinopathy, neuropathy. 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 - renally dose all meds -With cardiac/GI recs Result Diagram: 07/21/18 0541 07/21/18 0541 Results 24hrs Laboratory Tests Test 07/21/18 16:48 07/21/18 21:01 07/22/18 02:57 07/22/18 08:14 Bedside Glucose 138 181 167 159 Test 07/22/18 12:33 Bedside Glucose 163 Subjective 24 Hr Interval Summary Free Text/Dictation abdominal pain is better s/p EGD with gastroparesis Exam/Review of Systems Exam Vitals Vital Signs Date Temp Pulse Resp B/P (MAP) Pulse Ox O2 O2 Flow FiO2 Time Delivery Rate 07/22/18 98.2 70 18 127/65 98 Room Air 13:57 (85) 07/21/18 8.0 15:09 Intake and Output 07/21/18 07/21/18 07/22/18 1515:00 23:00 07:00 IntakeIntake Total 500 ml BalanceBalance 500 ml Exam ight chest permcath Constitutional: alert, oriented ENMT: nl external ears & nose Neck: supple Respiratory: diminished breath sounds Cardiovascular: regular rate and rhythm Gastrointestinal: soft Results Results 24hrs Results Results 24hrs Laboratory Tests Test 07/21/18 16:48 07/21/18 21:01 07/22/18 02:57 07/22/18 08:14 Bedside Glucose 138 181 167 159 Test 07/22/18 12:33 Bedside Glucose 163 Medications Medication Current Medications Nitroglycerin (Nitroglycerin (Sl Tab) 0.4 Mg) 1 tab Q5M UP TO 3 DOSES PRN SL .CHEST PAIN Last administered on 07/15/18at 06:40; Admin Dose 1 TAB; Start 07/15/18 at 06:30 IV Flush (NS 3 ml) 3 ml PER PROTOCOL IV ; Start 07/15/18 at 12:30 Acetaminophen/ Hydrocodone Bitart ([place] (5/325)) 1 tab Q6H PRN PO .MOD PAIN 4- 6; Start 07/15/18 at 12:30 Morphine Sulfate (morphine) 2 mg Q4H PRN IV .SEVERE PAIN 7-10 Last administered on 07/22/18at 11:27; Admin Dose 2 MG; Start 07/15/18 at 12:30 Docusate Sodium (Colace) 100 mg Q12H PRN PO .CONSTIPATION; Start 07/15/18 at 12:30 Famotidine (Pepcid) 20 mg DAILY PO Last administered on 07/22/18at 08:16; Admin Dose 20 MG; Start 07/16/18 at 09:00 Aspirin (Aspirin) 81 mg DAILY PO Last administered on 07/22/18at 08:15; Admin Dose 81 MG; Start 07/15/18 at 15:00 Atorvastatin Calcium (Lipitor) 40 mg HS PO Last administered on 07/21/18at 20:55; Admin Dose 40 MG; Start 07/15/18 at 21:00 Metoprolol Tartrate (Lopressor) 50 mg Q8 PO Last administered on 07/22/18 14:07; Admin Dose 50 MG; Start 07/15/18 at 15:00 Escitalopram Oxalate (Lexapro) 10 mg DAILY PO Last administered on 07/22/18 08:15; Admin Dose 10 MG; Start 07/16/18 at 09:00 Furosemide (Lasix) 40 mg BID PO Last administered on 07/21/18 20:55; Admin Dose 40 MG; Start 07/15/18 at 21:00 Gabapentin (Neurontin) 300 mg QHS PO Last administered on 07/21/18 20:54; Admin Dose 300 MG; Start 07/15/18 at 21:00 Hydralazine HCl (Apresoline) 10 mg Q4H PRN IV sbp>165 Last administered on 07/20/18 11:41; Admin Dose 10 MG; Start 07/15/18 at 23:00 Ondansetron HCl (Zofran Inj) 4 mg Q4H PRN IV NAUSEA AND/OR VOMITING Last administered on 07/21/18 07:17; Admin Dose 4 MG; Start 07/16/18 at 13:00 Metronidazole (Flagyl) 500 mg Q8 PO Last administered on 07/22/18 14:05; Admin Dose 500 MG; Start 07/16/18 at 22:00 Isosorbide Mononitrate (Imdur) 30 mg DAILY PO Last administered on 07/21/18 08:15; Admin Dose 30 MG; Start 07/16/18 at 19:00 Nifedipine (Procardia Xl) 60 mg DAILY PO Last administered on 07/21/18 08:14; Admin Dose 60 MG; Start 07/18/18 at 09:00 Heparin Sodium (Porcine) (Heparin (5000 Units/1ml)) 5,000 unit BID SC Last administered on 07/22/18 08:20; Admin Dose 5,000 UNIT; Start 07/18/18 at 13:00 Diagnostic Test (Pha) (Accu-Chek) 1 ea 02 XX Last administered on 07/22/18 0 2:59; Admin Dose 1 EA; Start 07/20/18 at 02:00 Insulin Aspart (Novolog Insulin Pen) NOVOLOG *MILD* ALGORITHM WITH MEALS BEDTIME SC Last administered on 4/23/19at 12:39; Admin Dose 1 UNIT; Start 07/01 at 18:00 Miscellaneous Information 1 ea NOTE XX ; Start 07/19/18 at 15:00 Glucose (Glutose) 15 gm Q15M PRN PO DECREASED GLUCOSE; Start 07/19/18 at 15:00 Glucose (Glutose) 22.5 gm Q15M PRN PO DECREASED GLUCOSE; Start 07/19/18 at 15:00 Dextrose (D50w Syringe) 25 ml Q15M PRN IV DECREASED GLUCOSE; Start 07/19/18 at 15:00 Dextrose (D50w Syringe) 50 ml Q15M PRN IV DECREASED GLUCOSE; Start 07/19/18 at 15:00 Glucagon (Glucagen) 1 mg Q15M PRN IM DECREASED GLUCOSE; Start 07/19/18 at 15:00 Glucose (Glutose) 15 gm Q15M PRN BUCCAL DECREASED GLUCOSE; Start 07/19/18 at 15:00 Metoclopramide HCl (Reglan) 5 mg Q8 IV Last administered on 07/22/18at 12:38; Admin Dose 5 MG; Start 07/21/18 at 16:00 Lubiprostone (Amitiza) 24 mcg BID PO Last administered on 07/22/18 11:28; Admin Dose 24 MCG; Start 07/22/18 at 09:00 Polyethylene Glycol (Miralax) 17 gm DAILY PO Last administered on 07/22/18 11:28; Admin Dose 17 GM; Start 07/22/18 at 09:00 Bisacodyl (Dulcolax Supp) 10 mg Q48H PRN [place] CONSTIPATION; Start 07/22/18 at 09:00 Heparin Sodium (Porcine) (Heparin (1000 Units/ml)) 3,300 unit AFTER DIALYSIS CATHETER Last administered on 07/22/18at 10:52; Admin Dose 3,300 UNIT; Start 07/22/18 at 10:30 MIKE GIFFORD MD Jul 22, 2018 15:09
[2018-07-22] MEDS: ATORVASTATIN 40 MG TAB PO SCH (20:59)
[2018-07-22] MEDS: GABAPENTIN 300 MG CAP PO SCH (20:59)
[2018-07-23 01:37] VITALS: BP 143/80; PULSE 66; RESP 20
[2018-07-23] MEDS: morphine 2 MG INJ IV PRN ×5 (01:43→21:38)
[2018-07-23] MEDS: ACCU-CHEK XX SCH (01:52)
[2018-07-23] MEDS: metroNIDAZOLE 500 MG TAB PO SCH ×3 (05:57→21:26)
[2018-07-23] MEDS: METOPROLOL 50 MG TAB PO SCH ×3 (05:58→21:27)
[2018-07-23] MEDS: METOCLOPRAMIDE 10 MG INJ IV SCH ×3 (06:05→21:27)
[2018-07-23 07:36] VITALS: BP 164/87; PULSE 61; RESP 16
[2018-07-23] MEDS: FAMOTIDINE 20 MG TAB PO SCH (08:48)
[2018-07-23] MEDS: ASPIRIN 81 MG TAB PO SCH (08:48)
[2018-07-23] MEDS: ESCITALOPRAM 10 MG TAB PO SCH (08:49)
[2018-07-23] MEDS: ISOSORBIDE MONONITRATE(SR)30 MG TAB PO SCH (08:49)
[2018-07-23] MEDS: FUROSEMIDE 40 MG TAB PO SCH ×2 (08:49→20:20)
[2018-07-23] MEDS: NIFEdipine (XL) 60 MG TAB PO SCH (08:49)
[2018-07-23] MEDS: HEPARIN 5,000 UNIT/1 ML VIAL SC SCH ×2 (08:51→20:21)
[2018-07-23] MEDS: INSULIN ASPART [NOVOLOG] 3 ML PEN SC SCH ×4 (08:51→20:22)
[2018-07-23] MEDS: LUBIPROSTONE 24 MCG CAP PO SCH ×2 (09:00→20:19)
[2018-07-23] MEDS: POLYETHYLENE GLYCOL 17 GM PACKET PO SCH (09:00)
--- NOTE | 2018-07-23 14:00 | PN ---
Date/Time of Note Date/Time of Note DATE: 07/23/18 TIME: 13:59 Assessment/Plan VTE Prophylaxis Risk score (from Nsg)>0 risk: 1 SCD applied (from Nsg): No SCD contraindicated: low risk/ambulating Pharmacological prophylaxis: NA/contraindicated Pharm contraindication: low risk/ambulating Lines/Catheters IV Catheter Type (from Nrsg): Peripheral IV Urinary Cath still in place: No Assessment/Plan Hospital Course 32 y/o with 1. Chest pain. At this time, the patient had a positive troponin; however, EKG did not show any acute significant abnormalities. Elevated trop likely secondary to NSTEMI vs tropnin leak however Trop had been neg in past troponin leak 2. Left upper quadrant pain radiating to the back at this time. Lipase is norm al. The patient also to have episodes of nausea, vomiting and diarrhea. The patient had a recent CAT scan done, which was negative. CT angios only shows 40% disease, ct of the chest shows is negative for pulmonary embolism CT of the thoracic and lumbar spines Multilevel broad-based bulges at the L1-2 through L5-S1 levels with mild central canal stenosis at L3-4 and L4-5. . Multilevel neural foraminal stenosis at the L2-3 through L5-S1 levels undergoing GI evaluation 3. Hypertension, uncontrolled. 4. Hyperkalemia. 5. Mild leukocytosis. 6. Diabetes. 7. Hypertension. 8. Hyperlipidemia. 9. Non-ST elevation myocardial infarction. 10. End-stage renal disease, on hemodialysis. 11. Diabetes with complication of diabetic nephropathy, retinopathy, neuropathy. 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 - renally dose all meds -With cardiac/GI recs Result Diagram: 07/21/18 0541 07/23/18 0725 Results 24hrs Laboratory Tests Test 07/22/18 17:26 07/22/18 20:54 07/23/18 01:51 07/23/18 07:25 Bedside Glucose 168 201 230 H Sodium Level 139 Potassium Level 4.8 Chloride Level 100 Carbon Dioxide Level 28 Anion Gap 11 Blood Urea Nitrogen 37 H Creatinine 8.96 H Est Glomerular 7 L Filtrat Rate mL/min Glucose Level 183 Calcium Level 8.3 L Total Bilirubin 0.0 L Direct Bilirubin 0.00 Indirect Bilirubin 0.0 Aspartate Amino 26 Transf (AST/SGOT) Alanine 22 Aminotransferase (AL T/SGPT) Alkaline Phosphatase 57 Total Protein 6.4 Albumin 3.6 Globulin 2.80 Albumin/Globulin 1.28 Ratio Lipase 722 H Test 07/23/18 08:16 07/23/18 12:45 Bedside Glucose 220 146 Subjective 24 Hr Interval Summary Free Text/Dictation flank pain much better waiting for hd center Exam/Review of Systems Exam Vitals Vital Signs Date Temp Pulse Resp B/P (MAP) Pulse Ox O2 O2 Flow FiO2 Time Delivery Rate 07/23/18 98.4 61 16 164/87 98 Room Air 07:36 (112) 07/21/18 8.0 15:09 Intake and Output 07/22/18 07/22/18 07/23/18 1515:00 23:00 07:00 IntakeIntake Total 1220 ml 360 ml 820 ml OutputOutput Total 3200 ml BalanceBalance -1980 ml 360 ml 820 ml Exam ight chest permcath Constitutional: alert, oriented ENMT: nl external ears & nose Neck: supple Respiratory: diminished breath sounds Cardiovascular: regular rate and rhythm Gastrointestinal: soft Results Results 24hrs Laboratory Tests Test 07/22/18 17:26 07/22/18 20:54 07/23/18 01:51 07/23/18 07:25 Bedside Glucose 168 201 230 H Sodium Level 139 Potassium Level 4.8 Chloride Level 100 Carbon Dioxide Level 28 Anion Gap 11 Blood Urea Nitrogen 37 H Creatinine 8.96 H Est Glomerular 7 L Filtrat Rate mL/min Glucose Level 183 Calcium Level 8.3 L Total Bilirubin 0.0 L Direct Bilirubin 0.00 Indirect Bilirubin 0.0 Aspartate Amino 26 Transf (AST/SGOT) Alanine 22 Aminotransferase (AL T/SGPT) Alkaline Phosphatase 57 Total Protein 6.4 Albumin 3.6 Globulin 2.80 Albumin/Globulin 1.28 Ratio Lipase 722 H Test 07/23/18 08:16 07/23/18 12:45 Bedside Glucose 220 146 Medications Medication Current Medications Nitroglycerin (Nitroglycerin (Sl Tab) 0.4 Mg) 1 tab Q5M UP TO 3 DOSES PRN SL .CHEST PAIN Last administered on 07/15/18at 06:40; Admin Dose 1 TAB; Start 07/15/18 at 06:30 IV Flush (NS 3 ml) 3 ml PER PROTOCOL IV ; Start 07/15/18 at 12:30 Acetaminophen/ Hydrocodone Bitart ([place] (5/325)) 1 tab Q6H PRN PO .MOD PAIN 4- 6; Start 07/15/18 at 12:30 Morphine Sulfate (morphine) 2 mg Q4H PRN IV .SEVERE PAIN 7-10 Last administered on 07/23/18 11:43; Admin Dose 2 MG; Start 07/15/18 at 12:30 Docusate Sodium (Colace) 100 mg Q12H PRN PO .CONSTIPATION; Start 07/15/18 at 12:30 Famotidine (Pepcid) 20 mg DAILY PO Last administered on 07/23/18 08:48; Admin Dose 20 MG; Start 07/16/18 at 09:00 Aspirin (Aspirin) 81 mg DAILY PO Last administered on 07/23/18 08:48; Admin Dose 81 MG; Start 07/15/18 at 15:00 Atorvastatin Calcium (Lipitor) 40 mg HS PO Last administered on 07/22/18 2 0:59; Admin Dose 40 MG; Start 07/15/18 at 21:00 Metoprolol Tartrate (Lopressor) 50 mg Q8 PO Last administered on 07/23/18 05:58; Admin Dose 50 MG; Start 07/15/18 at 15:00 Escitalopram Oxalate (Lexapro) 10 mg DAILY PO Last administered on 07/23/18 08:49; Admin Dose 10 MG; Start 07/16/18 at 09:00 Furosemide (Lasix) 40 mg BID PO Last administered on 07/23/18 08:49; Admin Dose 40 MG; Start 07/15/18 at 21:00 Gabapentin (Neurontin) 300 mg QHS PO Last administered on 07/22/18 20:59; Admin Dose 300 MG; Start 07/15/18 at 21:00 Hydralazine HCl (Apresoline) 10 mg Q4H PRN IV sbp>165 Last administered on 07/20/18 11:41; Admin Dose 10 MG; Start 07/15/18 at 23:00 Ondansetron HCl (Zofran Inj) 4 mg Q4H PRN IV NAUSEA AND/OR VOMITING Last administered on 07/21/18 07:17; Admin Dose 4 MG; Start 07/16/18 at 13:00 Metronidazole (Flagyl) 500 mg Q8 PO Last administered on 07/23/18 05:57; Admin Dose 500 MG; Start 07/16/18 at 22:00 Isosorbide Mononitrate (Imdur) 30 mg DAILY PO Last administered on 07/23/18 08:49; Admin Dose 30 MG; Start 07/16/18 at 19:00 Nifedipine (Procardia Xl) 60 mg DAILY PO Last administered on 07/23/18 08:49; Admin Dose 60 MG; Start 07/18/18 at 09:00 Heparin Sodium (Porcine) (Heparin (5000 Units/1ml)) 5,000 unit BID SC Last administered on 07/23/18 08:51; Admin Dose 5,000 UNIT; Start 07/18/18 at 13:00 Diagnostic Test (Pha) (Accu-Chek) 1 ea 02 XX Last administered on 07/22/18at 02:59; Admin Dose 1 EA; Start 07/20/18 at 02:00 Insulin Aspart (Novolog Insulin Pen) NOVOLOG *MILD* ALGORITHM WITH MEALS BEDTIME SC Last administered on 07/23/18at 12:48; Admin Dose 1 UNIT; Start 07/19/18 at 18:00 Miscellaneous Information 1 ea NOTE XX ; Start 07/19/18 at 15:00 Glucose (Glutose) 15 gm Q15M PRN PO DECREASED GLUCOSE; Start 07/19/18 at 15:00 Glucose (Glutose) 22.5 gm Q15M PRN PO DECREASED GLUCOSE; Start 07/19/18 at 15:00 Dextrose (D50w Syringe) 25 ml Q15M PRN IV DECREASED GLUCOSE; Start 07/19/18 at 15:00 Dextrose (D50w Syringe) 50 ml Q15M PRN IV DECREASED GLUCOSE; Start 07/19/18 at 15:00 Glucagon (Glucagen) 1 mg Q15M PRN IM DECREASED GLUCOSE; Start 07/19/18 at 15:00 Glucose (Glutose) 15 gm Q15M PRN BUCCAL DECREASED GLUCOSE; Start 07/19/18 at 15:00 Metoclopramide HCl (Reglan) 5 mg Q8 IV Last administered on 07/23/18at 06:05; Admin Dose 5 MG; Start 07/21/18 at 16:00 Lubiprostone (Amitiza) 24 mcg BID PO Last administered on 07/22/18at 11:28; Admin Dose 24 MCG; Start 07/22/18 at 09:00 Polyethylene Glycol (Miralax) 17 gm DAILY PO Last administered on 07/22/18at 11:28; Admin Dose 17 GM; Start 07/22/18 at 09:00 Bisacodyl (Dulcolax Supp) 10 mg Q48H PRN [place] CONSTIPATION; Start 07/22/18 at 09:00 Heparin Sodium (Porcine) (Heparin (1000 Units/ml)) 3,300 unit AFTER DIALYSIS CATHETER Last administered on 07/22/18at 10:52; Admin Dose 3,300 UNIT; Start at 10:30 MIKE GIFFORD MD Jul 23, 2018 14:00
[2018-07-23 14:04] VITALS: BP 134/74; PULSE 65; RESP 18
[2018-07-23] MEDS ORDERED: LORAZEPAM 0.5 MG TAB PO ONE (14:30)
--- NOTE | 2018-07-23 16:31 | CONS ---
Assessment/Plan Assessment/Plan Assessment/Plan (Daily) Chest, abdominal and flank pain Elevated troponin-trending down Low normal left ventricular ejection fraction 50-55% End-stage renal disease hemodialysis Hypertension, uncontrolled Diabetes Vasculopathy -CT coronary angiogram with 50% plaque in LAD, otherwise no obstructive coronary artery disease. -CT pulmonary angiogram with no evidence of pulmonary emboli -Patient's complaints are of chest discomfort with inspiration as well as abdominal pain, and pain elicited with palpation of chest wall -Patient status post EGD, -Continue statin therapy, beta-luis f, blood pressure control -Fluid management via hemodialysis as per nephrology Consultation Date/Type/Reason Admit Date/Time Jul 15, 2018 at 07:14 Initial Consult Date Type of Consult Cardiology Date/Time of Note DATE: 07/23/18 TIME: 16:30 24 HR Interval Summary Free Text/Dictation the patient wtth no compaints Exam/Review of Systems Vital Signs Vitals Vital Signs Date Temp Pulse Resp B/P (MAP) Pulse Ox O2 O2 Flow FiO2 Time Delivery Rate 07/23/18 98.2 65 18 134/74 99 Room Air 14:04 (94) 07/21/18 8.0 15:09 Intake and Output 07/22/18 07/22/18 07/23/18 1515:00 23:00 07:00 IntakeIntake Total 1220 ml 360 ml 820 ml OutputOutput Total 3200 ml BalanceBalance -1980 ml 360 ml 820 ml Labs Result Diagram: 07/21/18 0541 07/23/18 0725 Results 24hrs Laboratory Tests Test 07/22/18 17:26 07/22/18 20:54 07/23/18 01:51 07/23/18 07:25 Bedside Glucose 168 201 230 H Sodium Level 139 Potassium Level 4.8 Chloride Level 100 Carbon Dioxide Level 28 Anion Gap 11 Blood Urea Nitrogen 37 H Creatinine 8.96 H Est Glomerular 7 L Filtrat Rate mL/min Glucose Level 183 Calcium Level 8.3 L Total Bilirubin 0.0 L Direct Bilirubin 0.00 Indirect Bilirubin 0.0 Aspartate Amino 26 Transf (AST/SGOT) Alanine 22 Aminotransferase (AL T/SGPT) Alkaline Phosphatase 57 Total Protein 6.4 Albumin 3.6 Globulin 2.80 Albumin/Globulin 1.28 Ratio Lipase 722 H Test 07/23/18 08:16 07/23/18 12:45 Bedside Glucose 220 146 Medications Medications Current Medications Nitroglycerin (Nitroglycerin (Sl Tab) 0.4 Mg) 1 tab Q5M UP TO 3 DOSES PRN SL .CHEST PAIN Last administered on 07/15/18 06:40; Admin Dose 1 TAB; Start 07/15/18 at 06:30 IV Flush (NS 3 ml) 3 ml PER PROTOCOL IV ; Start 07/15/18 at 12:30 Acetaminophen/ Hydrocodone Bitart ([place] (5/325)) 1 tab Q6H PRN PO .MOD PAIN 4- 6; Start 07/15/18 at 12:30 Morphine Sulfate (morphine) 2 mg Q4H PRN IV .SEVERE PAIN 7-10 Last administered on 07/23/18 11:43; Admin Dose 2 MG; Start 07/15/18 at 12:30 Docusate Sodium (Colace) 100 mg Q12H PRN PO .CONSTIPATION; Start 07/15/18 at 12:30 Famotidine (Pepcid) 20 mg DAILY PO Last administered on 07/23/18 08:48; Admin Dose 20 MG; Start 07/16/18 at 09:00 Aspirin (Aspirin) 81 mg DAILY PO Last administered on 07/23/18 08:48; Admin Dose 81 MG; Start 07/15/18 at 15:00 Atorvastatin Calcium (Lipitor) 40 mg HS PO Last administered on 07/22/18 20:59; Admin Dose 40 MG; Start 07/15/18 at 21:00 Metoprolol Tartrate (Lopressor) 50 mg Q8 PO Last administered on 07/23/18 13:59; Admin Dose 50 MG; Start 07/15/18 at 15:00 Escitalopram Oxalate (Lexapro) 10 mg DAILY PO Last administered on 07/23/18 08:49; Admin Dose 10 MG; Start 07/16/18 at 09:00 Furosemide (Lasix) 40 mg BID PO Last administered on 07/23/18 08:49; Admin Dose 40 MG; Start 07/15/18 at 21:00 Gabapentin (Neurontin) 300 mg QHS PO Last administered on 07/22/18 20:59; Admin Dose 300 MG; Start 07/15/18 at 21:00 Hydralazine HCl (Apresoline) 10 mg Q4H PRN IV sbp>165 Last administered on 07/20/18 11:41; Admin Dose 10 MG; Start 07/15/18 at 23:00 Ondansetron HCl (Zofran Inj) 4 mg Q4H PRN IV NAUSEA AND/OR VOMITING Last administered on 07/21/18 07:17; Admin Dose 4 MG; Start 07/16/18 at 13:00 Metronidazole (Flagyl) 500 mg Q8 PO Last administered on 07/23/18 13:59; Admin Dose 500 MG; Start 07/16/18 at 22:00 Isosorbide Mononitrate (Imdur) 30 mg DAILY PO Last administered on 07/23/18 08:49; Admin Dose 30 MG; Start 07/16/18 at 19:00 Nifedipine (Procardia Xl) 60 mg DAILY PO Last administered on 07/23/18 08:49; Admin Dose 60 MG; Start 07/18/18 at 09:00 Heparin Sodium (Porcine) (Heparin (5000 Units/1ml)) 5,000 unit BID SC Last administered on 07/23/18 08:51; Admin Dose 5,000 UNIT; Start 07/18/18 at 13:00 Diagnostic Test (Pha) (Accu-Chek) 1 ea 02 XX Last administered on 07/22/18 02:59; Admin Dose 1 EA; Start 07/20/18 at 02:00 Insulin Aspart (Novolog Insulin Pen) NOVOLOG *MILD* ALGORITHM WITH MEALS BEDTIME SC Last administered on 07/23/18 12:48; Admin Dose 1 UNIT; Start 07/19/18 at 18:00 Miscellaneous Information 1 ea NOTE XX ; Start 07/19/18 at 15:00 Glucose (Glutose) 15 gm Q15M PRN PO DECREASED GLUCOSE; Start 07/19/18 at 15:00 Glucose (Glutose) 22.5 gm Q15M PRN PO DECREASED GLUCOSE; Start 07/19/18 at 15:00 Dextrose (D50w Syringe) 25 ml Q15M PRN IV DECREASED GLUCOSE; Start 07/19/18 at 15:00 Dextrose (D50w Syringe) 50 ml Q15M PRN IV DECREASED GLUCOSE; Start 07/19/18 at 15:00 Glucagon (Glucagen) 1 mg Q15M PRN IM DECREASED GLUCOSE; Start 07/19/18 at 15:00 Glucose (Glutose) 15 gm Q15M PRN BUCCAL DECREASED GLUCOSE; Start 07/19/18 at 15:00 Metoclopramide HCl (Reglan) 5 mg Q8 IV Last administered on 07/23/18at 14:02; Admin Dose 5 MG; Start 07/21/18 at 16:00 Lubiprostone (Amitiza) 24 mcg BID PO Last administered on 07/22/18 11:28; Admin Dose 24 MCG; Start 07/22/18 at 09:00 Polyethylene Glycol (Miralax) 17 gm DAILY PO Last administered on 07/22/18at 11:28; Admin Dose 17 GM; Start 07/22/18 at 09:00 Bisacodyl (Dulcolax Supp) 10 mg Q48H PRN [place] CONSTIPATION; Start 07/22/18 at 09:00 Heparin Sodium (Porcine) (Heparin (1000 Units/ml)) 3,300 unit AFTER DIALYSIS CATHETER Last administered on 07/22/18at 10:52; Admin Dose 3,300 UNIT; Start 07/22/18 at 10:30 DESIREE KOHLI MD Jul 23, 2018 16:31
--- NOTE | 2018-07-23 16:38 | CONS ---
Assessment/Plan Assessment/Plan Assessment/Plan (Daily) 32 yo male with abd pain 1. Chest pain with elevated troponin, may be due to the troponin leak. 2. Left upper quadrant pain radiating to back. 3. Hypertension. 4. Hyperkalemia. 5. Diabetes mellitus. 6. Hypertension. 7. End-stage renal disease. 8. Diabetes mellitus 9. 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 Constipation Plan Reglan low dose Pending pathology report Amitiza 24 mcg BID PO Miralax 17 gm QD PO Dulcolax supp prn constipation Consultation Date/Type/Reason Admit Date/Time Jul 15, 2018 at 07:14 Initial Consult Date Date/Time of Note DATE: 07/23/18 TIME: 16:38 24 HR Interval Summary Constitutional: improved Exam/Review of Systems Exam Vitals Vital Signs Date Temp Pulse Resp B/P (MAP) Pulse Ox O2 O2 Flow FiO2 Time Delivery Rate 07/23/18 98.2 65 18 134/74 99 Room Air 14:04 (94) 07/21/18 8.0 15:09 Intake and Output 07/22/18 07/22/18 07/23/18 1515:00 23:00 07:00 IntakeIntake Total 1220 ml 360 ml 820 ml OutputOutput Total 3200 ml BalanceBalance -1980 ml 360 ml 820 ml Constitutional: alert, oriented, well developed Psych: no complaints, nl mood/affect Head: normocephalic, atraumatic Eyes: nl conjunctiva, EOMI, nl lids, nl sclera, PERRL ENMT: nl external ears & nose, nl lips & teeth, nl nasal mucosa & septum Neck: supple, non-tender Respiratory: clear to auscultation, normal air movement Cardiovascular: regular rate and rhythm, nl pulses Gastrointestinal: soft, nl liver, spleen, non-tender Musculoskeletal: nl extremities to inspection, nl gait and stance Extremities: normal pulses 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, nl mental status, nl speech, nl strength Skin: nl turgor; No rash or lesions Lymph: nl lymph nodes Results Result Diagram: 07/21/18 0541 07/23/18 0725 Results 24hrs Laboratory Tests Test 07/22/18 17:26 07/22/18 20:54 07/23/18 01:51 07/23/18 07:25 Bedside Glucose 168 201 230 H Sodium Level 139 Potassium Level 4.8 Chloride Level 100 Carbon Dioxide Level 28 Anion Gap 11 Blood Urea Nitrogen 37 H Creatinine 8.96 H Est Glomerular 7 L Filtrat Rate mL/min Glucose Level 183 Calcium Level 8.3 L Total Bilirubin 0.0 L Direct Bilirubin 0.00 Indirect Bilirubin 0.0 Aspartate Amino 26 Transf (AST/SGOT) Alanine 22 Aminotransferase (AL T/SGPT) Alkaline Phosphatase 57 Total Protein 6.4 Albumin 3.6 Globulin 2.80 Albumin/Globulin 1.28 Ratio Lipase 722 H Test 07/23/18 08:16 07/23/18 12:45 Bedside Glucose 220 146 Medications Medication Current Medications Nitroglycerin (Nitroglycerin (Sl Tab) 0.4 Mg) 1 tab Q5M UP TO 3 DOSES PRN SL .CHEST PAIN Last administered on 07/15/18at 06:40; Admin Dose 1 TAB; Start 07/15/18 at 06:30 IV Flush (NS 3 ml) 3 ml PER PROTOCOL IV ; Start 07/15/18 at 12:30 Acetaminophen/ Hydrocodone Bitart ([place] (5/325)) 1 tab Q6H PRN PO .MOD PAIN 4- 6; Start 07/15/18 at 12:30 Morphine Sulfate (morphine) 2 mg Q4H PRN IV .SEVERE PAIN 7-10 Last administered on 07/23/18at 11:43; Admin Dose 2 MG; Start 07/15/18 at 12:30 Docusate Sodium (Colace) 100 mg Q12H PRN PO .CONSTIPATION; Start 07/15/18 at 12:30 Famotidine (Pepcid) 20 mg DAILY PO Last administered on 07/23/18at 08:48; Admin Dose 20 MG; Start 07/16/18 at 09:00 Aspirin (Aspirin) 81 mg DAILY PO Last administered on 07/23/18 08:48; Admin Dose 81 MG; Start 07/15/18 at 15:00 Atorvastatin Calcium (Lipitor) 40 mg HS PO Last administered on 07/22/18at 20:59; Admin Dose 40 MG; Start 07/15/18 at 21:00 Metoprolol Tartrate (Lopressor) 50 mg Q8 PO Last administered on 07/23/18at 13:59; Admin Dose 50 MG; Start 07/15/18 at 15:00 Escitalopram Oxalate (Lexapro) 10 mg DAILY PO Last administered on 07/23/18 08:49; Admin Dose 10 MG; Start 07/16/18 at 09:00 Furosemide (Lasix) 40 mg BID PO Last administered on 07/23/18 08:49; Admin Dose 40 MG; Start 07/15/18 at 21:00 Gabapentin (Neurontin) 300 mg QHS PO Last administered on 07/22/18 20:59; Admin Dose 300 MG; Start 07/15/18 at 21:00 Hydralazine HCl (Apresoline) 10 mg Q4H PRN IV sbp>165 Last administered on 07/20/18 11:41; Admin Dose 10 MG; Start 07/15/18 at 23:00 Ondansetron HCl (Zofran Inj) 4 mg Q4H PRN IV NAUSEA AND/OR VOMITING Last administered on 07/21/18 07:17; Admin Dose 4 MG; Start 07/16/18 at 13:00 Metronidazole (Flagyl) 500 mg Q8 PO Last administered on 07/23/18 13:59; Admin Dose 500 MG; Start 07/16/18 at 22:00 Isosorbide Mononitrate (Imdur) 30 mg DAILY PO Last administered on 07/23/18 08:49; Admin Dose 30 MG; Start 07/16/18 at 19:00 Nifedipine (Procardia Xl) 60 mg DAILY PO Last administered on 07/23/18 08:49; Admin Dose 60 MG; Start 07/18/18 at 09:00 Heparin Sodium (Porcine) (Heparin (5000 Units/1ml)) 5,000 unit BID SC Last administered on 07/23/18 08:51; Admin Dose 5,000 UNIT; Start 07/18/18 at 13:00 Diagnostic Test (Pha) (Accu-Chek) 1 ea 02 XX Last administered on 07/22/18 02:59; Admin Dose 1 EA; Start 07/20/18 at 02:00 Insulin Aspart (Novolog Insulin Pen) NOVOLOG *MILD* ALGORITHM WITH MEALS BEDTIME SC Last administered on 07/23/18 12:48; Admin Dose 1 UNIT; Start 07/19/18 at 18:00 Miscellaneous Information 1 ea NOTE XX ; Start 07/19/18 at 15:00 Glucose (Glutose) 15 gm Q15M PRN PO DECREASED GLUCOSE; Start 07/19/18 at 15:00 Glucose (Glutose) 22.5 gm Q15M PRN PO DECREASED GLUCOSE; Start 07/19/18 at 15:00 Dextrose (D50w Syringe) 25 ml Q15M PRN IV DECREASED GLUCOSE; Start 07/19/18 at 15:00 Dextrose (D50w Syringe) 50 ml Q15M PRN IV DECREASED GLUCOSE; Start 07/19/18 at 15:00 Glucagon (Glucagen) 1 mg Q15M PRN IM DECREASED GLUCOSE; Start 07/19/18 at 15:00 Glucose (Glutose) 15 gm Q15M PRN BUCCAL DECREASED GLUCOSE; Start 07/19/18 at 15:00 Metoclopramide HCl (Reglan) 5 mg Q8 IV Last administered on 07/23/18at 14:02; Admin Dose 5 MG; Start 07/21/18 at 16:00 Lubiprostone (Amitiza) 24 mcg BID PO Last administered on 07/22/18at 11:28; Admin Dose 24 MCG; Start 07/22/18 at 09:00 Polyethylene Glycol (Miralax) 17 gm DAILY PO Last administered on 07/22/18at 11:28; Admin Dose 17 GM; Start 07/22/18 at 09:00 Bisacodyl (Dulcolax Supp) 10 mg Q48H PRN [place] CONSTIPATION; Start 07/22/18 at 09:00 Heparin Sodium (Porcine) (Heparin (1000 Units/ml)) 3,300 unit AFTER DIALYSIS CATHETER Last administered on 07/22/18at 10:52; Admin Dose 3,300 UNIT; Start 07/22/18 at 10:30 MAXIMO KUHN MD Jul 23, 2018 16:38
[2018-07-23 20:16] VITALS: BP 117/67; PULSE 63; RESP 18
[2018-07-23] MEDS: GABAPENTIN 300 MG CAP PO SCH (20:18)
[2018-07-23] MEDS: ATORVASTATIN 40 MG TAB PO SCH (20:19)
[2018-07-24] VITALS (17 sets, daily range): BP systolic 102–176; BP diastolic 63–88; PULSE 56–65; RESP 18–20
[2018-07-24] MEDS: morphine 2 MG INJ IV PRN ×3 (01:43→13:04)
[2018-07-24] MEDS: ACCU-CHEK XX SCH (01:43)
[2018-07-24] MEDS: metroNIDAZOLE 500 MG TAB PO SCH ×2 (05:50→13:04)
[2018-07-24] MEDS: METOCLOPRAMIDE 10 MG INJ IV SCH ×2 (05:50→13:04)
[2018-07-24] MEDS: METOPROLOL 50 MG TAB PO SCH ×2 (05:54→13:08)
[2018-07-24] MEDS: FUROSEMIDE 40 MG TAB PO SCH (08:39)
[2018-07-24] MEDS: ASPIRIN 81 MG TAB PO SCH (08:39)
[2018-07-24] MEDS: ISOSORBIDE MONONITRATE(SR)30 MG TAB PO SCH (08:39)
[2018-07-24] MEDS: FAMOTIDINE 20 MG TAB PO SCH (08:40)
[2018-07-24] MEDS: ESCITALOPRAM 10 MG TAB PO SCH (08:40)
[2018-07-24] MEDS: INSULIN ASPART [NOVOLOG] 3 ML PEN SC SCH ×3 (08:42→17:32)
[2018-07-24] MEDS: HEPARIN 5,000 UNIT/1 ML VIAL SC SCH (08:43)
[2018-07-24] MEDS: POLYETHYLENE GLYCOL 17 GM PACKET PO SCH (08:50)
[2018-07-24] MEDS: NIFEdipine (XL) 60 MG TAB PO SCH (08:50)
[2018-07-24] MEDS: LUBIPROSTONE 24 MCG CAP PO SCH (08:50)
--- NOTE | 2018-07-24 11:11 | CONS ---
Assessment/Plan Assessment/Plan Assessment/Plan (Daily) Assessment/Plan Assessment/Plan (Daily) 32 yo male with abd pain 1. Chest pain with elevated troponin, may be due to the troponin leak. 2. Left upper quadrant pain radiating to back. 3. Hypertension. 4. Hyperkalemia. 5. Diabetes mellitus. 6. Hypertension. 7. End-stage renal disease. 8. Diabetes mellitus 9. 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 Constipation Plan Reglan low dose Pending pathology report Amitiza 24 mcg BID PO Miralax 17 gm QD PO Dulcolax supp prn constipation Patient pain may be related to muscle and may need epidural injection Consultation Date/Type/Reason Admit Date/Time Jul 15, 2018 at 07:14 Initial Consult Date Date/Time of Note DATE: 07/24/18 TIME: 11:11 24 HR Interval Summary Constitutional: improved Exam/Review of Systems Exam Vitals Vital Signs Date Temp Pulse Resp B/P (MAP) Pulse Ox O2 O2 Flow FiO2 Time Delivery Rate 07/24/18 98.4 65 18 176/88 98 Room Air 08:36 (117) 07/21/18 8.0 15:09 Constitutional: alert, oriented, well developed Psych: no complaints, nl mood/affect Head: normocephalic, atraumatic Eyes: nl conjunctiva, EOMI, nl lids, nl sclera, PERRL ENMT: nl external ears & nose, nl lips & teeth, nl nasal mucosa & septum Neck: supple, non-tender Respiratory: clear to auscultation, normal air movement Cardiovascular: regular rate and rhythm, nl pulses Gastrointestinal: soft, nl liver, spleen, non-tender Musculoskeletal: nl extremities to inspection, nl gait and stance Extremities: normal pulses Neurological: QUARANTINE INSPECTOR II-XII intact, nl mental status, nl speech, nl strength Skin: nl turgor; No rash or lesions Lymph: nl lymph nodes Results Result Diagram: 07/21/18 0541 07/23/18 0725 Results 24hrs Laboratory Tests Test 07/23/18 12:45 07/23/18 17:07 07/23/18 20:12 07/24/18 01:19 Bedside Glucose 146 154 206 157 Test 07/24/18 08:16 Bedside Glucose 148 Medications Medication Current Medications Nitroglycerin (Nitroglycerin (Sl Tab) 0.4 Mg) 1 tab Q5M UP TO 3 DOSES PRN SL .CHEST PAIN Last administered on 07/15/18 06:40; Admin Dose 1 TAB; Start 07/15/18 at 06:30 IV Flush (NS 3 ml) 3 ml PER PROTOCOL IV ; Start 07/15/18 at 12:30 Acetaminophen/ Hydrocodone Bitart ([place] (5/325)) 1 tab Q6H PRN PO .MOD PAIN 4- 6; Start 07/15/18 at 12:30 Morphine Sulfate (morphine) 2 mg Q4H PRN IV .SEVERE PAIN 7-10 Last administered on 07/24/18 08:44; Admin Dose 2 MG; Start 07/15/18 at 12:30 Docusate Sodium (Colace) 100 mg Q12H PRN PO .CONSTIPATION; Start 07/15/18 at 12 :30 Famotidine (Pepcid) 20 mg DAILY PO Last administered on 07/24/18 08:40; Admin Dose 20 MG; Start 07/16/18 at 09:00 Aspirin (Aspirin) 81 mg DAILY PO Last administered on 07/24/18 08:39; Admin Do se 81 MG; Start 07/15/18 at 15:00 Atorvastatin Calcium (Lipitor) 40 mg HS PO Last administered on 07/23/18 20:19; Admin Dose 40 MG; Start 07/15/18 at 21:00 Metoprolol Tartrate (Lopressor) 50 mg Q8 PO Last administered on 07/24/18 05:54; Admin Dose 50 MG; Start 07/15/18 at 15:00 Escitalopram Oxalate (Lexapro) 10 mg DAILY PO Last administered on 07/24/18 08:40; Admin Dose 10 MG; Start 07/16/18 at 09:00 Furosemide (Lasix) 40 mg BID PO Last administered on 07/24/18 08:39; Admin Dose 40 MG; Start 07/15/18 at 21:00 Gabapentin (Neurontin) 300 mg QHS PO Last administered on 07/23/18 20:18; A dmin Dose 300 MG; Start 07/15/18 at 21:00 Hydralazine HCl (Apresoline) 10 mg Q4H PRN IV sbp>165 Last administered on 07/20/18 11:41; Admin Dose 10 MG; Start 07/15/18 at 23:00 Ondansetron HCl (Zofran Inj) 4 mg Q4H PRN IV NAUSEA AND/OR VOMITING Last administered on 07/21/18at 07:17; Admin Dose 4 MG; Start 07/16/18 at 13:00 Metronidazole (Flagyl) 500 mg Q8 PO Last administered on 07/24/18at 05:50; Admin Dose 500 MG; Start 07/16/18 at 22:00 Isosorbide Mononitrate (Imdur) 30 mg DAILY PO Last administered on 07/24/18 08:39; Admin Dose 30 MG; Start 07/16/18 at 19:00 Nifedipine (Procardia Xl) 60 mg DAILY PO Last administered on 07/23/18 08:49; Admin Dose 60 MG; Start 07/18/18 at 09:00 Heparin Sodium (Porcine) (Heparin (5000 Units/1ml)) 5,000 unit BID SC Last administered on 07/24/18 08:43; Admin Dose 5,000 UNIT; Start 07/18/18 at 13:00 Diagnostic Test (Pha) (Accu-Chek) 1 ea 02 XX Last administered on 07/22/18at 02:59; Admin Dose 1 EA; Start 07/20/18 at 02:00 Insulin Aspart (Novolog Insulin Pen) NOVOLOG *MILD* ALGORITHM WITH MEALS BEDTIME SC Last administered on 07/24/18 08:42; Admin Dose 1 UNIT; Start 07/19/18 at 18:00 Miscellaneous Information 1 ea NOTE XX ; Start 07/19/18 at 15:00 Glucose (Glutose) 15 gm Q15M PRN PO DECREASED GLUCOSE; Start 07/19/18 at 15:00 Glucose (Glutose) 22.5 gm Q15M PRN PO DECREASED GLUCOSE; Start 07/19/18 at 15:00 Dextrose (D50w Syringe) 25 ml Q15M PRN IV DECREASED GLUCOSE; Start 07/19/18 at 15:00 Dextrose (D50w Syringe) 50 ml Q15M PRN IV DECREASED GLUCOSE; Start 07/19/18 at 15:00 Glucagon (Glucagen) 1 mg Q15M PRN IM DECREASED GLUCOSE; Start 07/19/18 at 15:00 Glucose (Glutose) 15 gm Q15M PRN BUCCAL DECREASED GLUCOSE; Start 07/19/18 at 1 5:00 Metoclopramide HCl (Reglan) 5 mg Q8 IV Last administered on 07/24/18at 05:50; Admin Dose 5 MG; Start 07/21/18 at 16:00 Lubiprostone (Amitiza) 24 mcg BID PO Last administered on 07/23/18at 20:19; Admin Dose 24 MCG; Start 07/22/18 at 09:00 Polyethylene Glycol (Miralax) 17 gm DAILY PO Last administered on 07/22/18at 11:28; Admin Dose 17 GM; Start 07/22/18 at 09:00 Bisacodyl (Dulcolax Supp) 10 mg Q48H PRN [place] CONSTIPATION; Start 07/22/18 at 09:00 Heparin Sodium (Porcine) (Heparin (1000 Units/ml)) 3,300 unit AFTER DIALYSIS CATHETER Last administered on 07/22/18at 10:52; Admin Dose 3,300 UNIT; Start 07/22/18 at 10:30 MAXIMO KUHN MD Jul 24, 2018 11:11
--- NOTE | 2018-07-24 15:11 | QN ---
Documentation Comment feels better no nausea/vommitig pain resolved MIKE GIFFORD MD Jul 24, 2018 15:11
--- NOTE | 2018-07-24 15:12 | PDOCDIS ---
Discharge Instructions DIAGNOSIS Discharge Diagnosis lower back pain wally MARBY Gastroparesis CONDITION [id number] Patient Condition: [id number] Fair HOME CARE INSTRUCTIONS: [id number] Special Diet: [id number] carb controlled, renal ACTIVITY: [id number] Activity Restrictions: [id number] Slowly Increase Activity Rest between Activity Avoid heavy lifting FOLLOW UP/APPOINTMENTS Follow-up Plan f/u PCP in 1 week fu HD at MIKE Hinojosa MD Jul 24, 2018 15:12
[2018-07-24] MEDS ORDERED: CALC667C PO (15:17)
[2018-07-24] MEDS ORDERED: FURO40TA4 PO (15:17)
[2018-07-24] MEDS ORDERED: POLY17PO6 PO (15:17)
[2018-07-24] MEDS ORDERED: ISOS30TA67 PO (15:17)
[2018-07-24] MEDS ORDERED: ESCI10TA48 PO (15:17)
[2018-07-24] MEDS ORDERED: GABA300C16 PO (15:17)
[2018-07-24] MEDS ORDERED: NIFE60TA2 PO (15:17)
[2018-07-24] MEDS ORDERED: ASPI-831 PO (15:17)
[2018-07-24] MEDS ORDERED: ATOR40TA68 PO (15:17)
[2018-07-24] MEDS ORDERED: FAMO20TA18 PO (15:17)
[2018-07-24] MEDS ORDERED: HYDR-3601 PO (15:18)
[2018-07-24] MEDS ORDERED: CARV12.598 PO (15:18)
--- NOTE | 2018-07-24 16:25 | DS ---
DATE OF ADMISSION: 07/15/2018 DATE OF DISCHARGE: 07/24/2018 HISTORY OF PRESENTING ILLNESS AND HOSPITAL COURSE: This is a 32-year-old male with a past medical hi story of end-stage renal disease on hemodialysis, diabetes, hypertension, hyperlipidemia, chronic opi oid abuse, who presents to the emergency department complaining of chest pain and also left upper rachel drant pain, multiple admissions in the past secondary to pancreatitis. The patient had left AMA on 06/2018 without full workup being done. The patient said that he was having some left-sided flank louie n and also had some nausea, vomiting, diarrhea. The pain was worse with deep inspiration. The patie nt is also having pain on the palpation of left chest wall. On admission, vital signs showed blood p ressure of 189/105, heart rate 83, respirations 16, saturating 98%. The patient was admitted to tele metry floor. The patient had serial troponins that had showed 0.488, ____. The patient was seen by cardiology consultation with Dr. Martinez and had an echocardiogram that showed an EF of 50% to 55%. N o significant wall motion abnormalities. The patient was initially started on heparin; however accor ding to Dr. Martinez, the patient had gotten cardiac CT that had showed noncalcified plaque in distal s egment of vessel producing 30% stenosis, tandem mixed plaque in proximal segment vessel producing ___ _ stenosis. No evidence of pulmonary emboli. No airspace infiltrates or pulmonary nodules. The pat ient was seen by GI consultation with Dr. Duong and their recommendations were followed. The patien t had an EGD that was done on 07/23/2018 that showed severe gastroparesis. The patient was started o n Zofran, Pepcid, still was intermittently having left flank wall pain. The patient also had thoraci c and lumbar spine CT that showed no acute fractures, multilevel broad based bulges at L1 to L2 throu gh L5 to S1 with mild central canal stenosis, multilevel neural foraminal stenosis. The patient's co ndition was getting better every day. White count 5.1, hemoglobin 11.42. The patient was continued on hemodialysis in the hospital. LFTs were within normal limit. Per cardiology, there is no interve ntion that needs to be done. We will continue with statin therapy, beta luis f, blood pressure cont rol. The patient was seen by GI and was cleared for discharge. The patient was ambulating. Denied any nausea, vomiting and flank pain had improved before discharge. FINAL DISCHARGE DIAGNOSES: 1. Left flank pain, history of abnormal LFTs, had episodes of nausea, vomiting, had recent CAT scan in 06/[address] angio showed 40% disease. CT of the chest is negative for pulmona ry embolism. CT of the thoracic and lumbar spine shows broad-based bulges in L1 to L2 and L5 to S1, mild central canal stenosis, likely this is musculoskeletal. 2. Chest pain with troponin leak; however, EKG did not show any significant abnormalities. No inter vention to be done per cardiology. CT angio showed only 50% of disease. 3. Hypertension. 4. Hyperkalemia. 5. Status post EGD with gastroparesis. 6. Mild leukocytosis, resolved. 7. Diabetes with complication of diabetic gastroparesis. 8. Hypertension. 9. Hyperlipidemia. 10. End-stage renal disease, on hemodialysis. 11. Diabetes with complication of diabetic nephropathy, retinopathy and neuropathy. 12. Constipation. DISCHARGE CONDITION: Stable. DISCHARGE DIET: Renal diet. DISCHARGE MEDICATIONS: 1. Aspirin 81. 2. Atorvastatin 40. 3. Pepcid 20. 4. Eleanor p.r.n. pain. 5. Imdur 30. 6. Nifedipine 60. 7. MiraLax p.r.n. constipation. 8. Calcium acetate. 9. Coreg 12.5 b.i.d. 10. Ergocalciferol. 11. Lexapro 10. 12. Lasix 40 b.i.d. 13. Gabapentin 300 p.o. at bedtime. FOLLOWUP: The patient was instructed to follow up with PCP in 1 to 2 weeks. Also, follow up with he modialysis. Dictated By: MIKE BIGGS/VIKTORIYA Conf#: [id number] DID#: [id number] CC: SHON MTZ MD;*EndCC*
--- NOTE | 2018-07-24 17:40 | CONS ---
Assessment/Plan Assessment/Plan Assessment/Plan (Daily) Chest, abdominal and flank pain Elevated troponin-trending down Low normal left ventricular ejection fraction 50-55% End-stage renal disease hemodialysis Hypertension, uncontrolled Diabetes Vasculopathy -CT coronary angiogram with 50% plaque in LAD, otherwise no obstructive coronary artery disease. -CT pulmonary angiogram with no evidence of pulmonary emboli -Patient's complaints are of chest discomfort with inspiration as well as abdominal pain, and pain elicited with palpation of chest wall -Patient status post EGD, -Continue statin therapy, beta-luis f, blood pressure control -Fluid management via hemodialysis as per nephrology Consultation Date/Type/Reason Admit Date/Time Jul 15, 2018 at 07:14 Initial Consult Date Type of Consult Cardiology Date/Time of Note DATE: 07/24/18 TIME: 17:40 24 HR Interval Summary Free Text/Dictation The apteint with no cheest pain Exam/Review of Systems Vital Signs Vitals Vital Signs Date Temp Pulse Resp B/P (MAP) Pulse Ox O2 O2 Flow FiO2 Time Delivery Rate 07/24/18 62 17:10 07/24/18 20 125/76 98 Room Air 15:00 (92) 07/24/18 98.0 14:17 07/21/18 8.0 15:09 Labs Result Diagram: 07/21/18 0541 07/23/18 0725 Results 24hrs Laboratory Tests Test 07/23/18 20:12 07/24/18 01:19 07/24/18 08:16 07/24/18 12:22 Bedside Glucose 206 157 148 206 Test 07/24/18 17:12 Bedside Glucose 155 Medications Medications Current Medications Nitroglycerin (Nitroglycerin (Sl Tab) 0.4 Mg) 1 tab Q5M UP TO 3 DOSES PRN SL .CHEST PAIN Last administered on 07/15/18at 06:40; Admin Dose 1 TAB; Start 07/15/18 at 06:30 IV Flush (NS 3 ml) 3 ml PER PROTOCOL IV ; Start 07/15/18 at 12:30 Acetaminophen/ Hydrocodone Bitart ([place] (5/325)) 1 tab Q6H PRN PO .MOD PAIN 4- 6; Start 07/15/18 at 12:30 Morphine Sulfate (morphine) 2 mg Q4H PRN IV .SEVERE PAIN 7-10 Last administered on 07/24/18at 13:04; Admin Dose 2 MG; Start 07/15/18 at 12:30 Docusate Sodium (Colace) 100 mg Q12H PRN PO .CONSTIPATION; Start 07/15/18 at 12:30 Famotidine (Pepcid) 20 mg DAILY PO Last administered on 07/24/18 08:40; Admin Dose 20 MG; Start 07/16/18 at 09:00 Aspirin (Aspirin) 81 mg DAILY PO Last administered on 07/24/18 08:39; Admin Dose 81 MG; Start 07/15/18 at 15:00 Atorvastatin Calcium (Lipitor) 40 mg HS PO Last administered on 07/23/18 20:19; Admin Dose 40 MG; Start 07/15/18 at 21:00 Metoprolol Tartrate (Lopressor) 50 mg Q8 PO Last administered on 07/24/18 05:54; Admin Dose 50 MG; Start 07/15/18 at 15:00 Escitalopram Oxalate (Lexapro) 10 mg DAILY PO Last administered on 07/24/18 08:40; Admin Dose 10 MG; Start 07/16/18 at 09:00 Furosemide (Lasix) 40 mg BID PO Last administered on 07/24/18 08:39; Admin Dose 40 MG; Start 07/15/18 at 21:00 Gabapentin (Neurontin) 300 mg QHS PO Last administered on 07/23/18 20:18; Admin Dose 300 MG; Start 07/15/18 at 21:00 Hydralazine HCl (Apresoline) 10 mg Q4H PRN IV sbp>165 Last administered on 07/20/18 11:41; Admin Dose 10 MG; Start 07/15/18 at 23:00 Ondansetron HCl (Zofran Inj) 4 mg Q4H PRN IV NAUSEA AND/OR VOMITING Last administered on 07/21/18 07:17; Admin Dose 4 MG; Start 07/16/18 at 13:00 Metronidazole (Flagyl) 500 mg Q8 PO Last administered on 07/24/18 13:04; Admin Dose 500 MG; Start 07/16/18 at 22:00 Isosorbide Mononitrate (Imdur) 30 mg DAILY PO Last administered on 07/24/18 08:39; Admin Dose 30 MG; Start 07/16/18 at 19:00 Nifedipine (Procardia Xl) 60 mg DAILY PO Last administered on 07/23/18 08:49; Admin Dose 60 MG; Start 07/18/18 at 09:00 Heparin Sodium (Porcine) (Heparin (5000 Units/1ml)) 5,000 unit BID SC Last administered on 07/24/18 08:43; Admin Dose 5,000 UNIT; Start 07/18/18 at 13:00 Diagnostic Test (Pha) (Accu-Chek) 1 ea 02 XX Last administered on 07/22/18at 02:59; Admin Dose 1 EA; Start 07/20/18 at 02:00 Insulin Aspart (Novolog Insulin Pen) NOVOLOG *MILD* ALGORITHM WITH MEALS BEDTIME SC Last administered on 07/24/18 17:32; Admin Dose 1 UNIT; Start 07/19/18 at 18:00 Miscellaneous Information 1 ea NOTE XX ; Start 07/19/18 at 15:00 Glucose (Glutose) 15 gm Q15M PRN PO DECREASED GLUCOSE; Start 07/19/18 at 15:00 Glucose (Glutose) 22.5 gm Q15M PRN PO DECREASED GLUCOSE; Start 07/19/18 at 15:00 Dextrose (D50w Syringe) 25 ml Q15M PRN IV DECREASED GLUCOSE; Start 07/19/18 at 15:00 Dextrose (D50w Syringe) 50 ml Q15M PRN IV DECREASED GLUCOSE; Start 07/19/18 at 15:00 Glucagon (Glucagen) 1 mg Q15M PRN IM DECREASED GLUCOSE; Start 07/19/18 at 15:00 Glucose (Glutose) 15 gm Q15M PRN BUCCAL DECREASED GLUCOSE; Start 07/19/18 at 15:00 Metoclopramide HCl (Reglan) 5 mg Q8 IV Last administered on 07/24/18at 13:04; Admin Dose 5 MG; Start 07/21/18 at 16:00 Lubiprostone (Amitiza) 24 mcg BID PO Last administered on 07/23/18at 20:19; Admin Dose 24 MCG; Start 07/22/18 at 09:00 Polyethylene Glycol (Miralax) 17 gm DAILY PO Last administered on 07/22/18at 11:28; Admin Dose 17 GM; Start 07/22/18 at 09:00 Bisacodyl (Dulcolax Supp) 10 mg Q48H PRN [place] CONSTIPATION; Start 07/22/18 at 09:00 Heparin Sodium (Porcine) (Heparin (1000 Units/ml)) 3,300 unit AFTER DIALYSIS CATHETER Last administered on 07/22/18at 10:52; Admin Dose 3,300 UNIT; Start 07/22/18 at 10:30 DESIREE KOHLI MD Jul 24, 2018 17:40
[2018-07-24] MEDS: HEPARIN 1000 UNITS/ML 10 ML INJ CATHETER SCH (18:25)
== END 2018-07-24 18:45 | disposition home or self-care (01) | DRG 280 ==
LOC: E/R 05:47 → 6WM 07:14 → 5EC 07-21 20:15
PROVIDERS: ADMIT Internal Medicine Nephrology; ATTEND Internal Medicine Nephrology
PROC: 0DB68ZX Excision of Stomach, Via Natural or Artificial Opening Endoscopic, Diagnostic (ICD-10-PCS; principal; 2018-07-21 15:30)
DX: I21.4 Non-ST elevation (NSTEMI) myocardial infarction (principal); N18.6 End stage renal disease; F11.20 Opioid dependence, uncomplicated; E11.43 Type 2 diabetes mellitus with diabetic autonomic (poly)neuropathy; K31.84 Gastroparesis; E11.21 Type 2 diabetes mellitus with diabetic nephropathy; E11.40 Type 2 diabetes mellitus with diabetic neuropathy, unspecified; E11.319 Type 2 diabetes mellitus with unspecified diabetic retinopathy without macular edema; E87.5 Hyperkalemia; E11.9 Type 2 diabetes mellitus without complications; D72.829 Elevated white blood cell count, unspecified; Z79.4 Long term (current) use of insulin; Z99.2 Dependence on renal dialysis; I10 Essential (primary) hypertension; E78.5 Hyperlipidemia, unspecified; D63.8 Anemia in other chronic diseases classified elsewhere; E66.9 Obesity, unspecified; Z68.28 Body mass index [BMI] 28.0-28.9, adult; R07.89 Other chest pain; R10.12 Left upper quadrant pain; R11.2 Nausea with vomiting, unspecified; R19.7 Diarrhea, unspecified; I25.10 Atherosclerotic heart disease of native coronary artery without angina pectoris; M54.9 Dorsalgia, unspecified
CPT/HCPCS: 36415; 71045; 71275; 72128; 72131; 75574; 80048; 80053; 82550; 82553; 82962; 83690; 83735; 84100; 84484; 85025; 85610; 85730; 87075; 88305; 88312; 90935; 93005; 93306; J0360; J1644; J1650; J1815; J2270; J2405; J2765; Q9967

== ENCOUNTER 2018-07-29 05:51 | Inpatient (IN) | payer MEDICARE, OTHER ==
[2018-07-29] VITALS (17 sets, daily range): BP systolic 114–240; BP diastolic 73–136; PULSE 83–90; RESP 19–20; Ht 182.9 cm; Wt 93.0 kg
[~2018-07-29] VITALS: Ht 182.9 cm; Wt 93.0 kg
[~2018-07-29 05:51] MED LIST changes: +ASPI-831 PO; +ATOR40TA68 PO; +FAMO20TA18 PO; +HYDR-3601 PO; +ISOS30TA67 PO; -NIFE30TA23 PO; +NIFE60TA2 PO; +POLY17PO6 PO; -SIMV20TA PO
--- NOTE | 2018-07-29 06:19 | ERD ---
ER Documentation Chief Complaint Chief Complaint RA81; ABD PAIN WITH N/V; HX OF DIAYLSIS AND PANCREATITIS HPI 32-year-old man with history of end-stage kidney disease and chronic recurrent pain who suffered a recent non-STEMI presents with left-sided chest pain. He states he missed dialysis this morning due to the chest pain. He denies cough, no fevers or chills, no palpitation, no headache or blurry vision, no vomiting or diarrhea ROS All systems reviewed and are negative except as per history of present illness. Medications Home Meds Active Scripts Hydrocodone Bit-Acetaminophen (Hydrocodone Bit-APAP) 5-325MG Tablet, 1 TAB PO Q6H PRN for .MOD PAIN 4-6 for 14 Days, TAB Prov:MIKE GIFFORD MD 07/24/18 Carvedilol* (Coreg*) 12.5 Mg Tablet, 12.5 MG PO BID for 30 Days, #60 TAB Prov:MIKE GIFFORD MD 07/24/18 Famotidine* (Famotidine*) 20 Mg Tablet, 20 MG PO DAILY for 30 Days, TAB Prov:MIKE GIFFORD MD 07/24/18 Polyethylene Glycol* (Miralax*) 17 Gm Powd.pack, 17 GM PO DAILY for 10 Days Prov:MIKE GIFFORD MD 07/24/18 Aspirin (Aspirin) 81 Mg Chew, 81 MG PO DAILY for 30 Days, TAB Prov:MIKE GIFFORD MD 07/24/18 Nifedipine (Procardia Xl) 60 Mg Tab.er.24, 60 MG PO DAILY for 30 Days, TAB Prov:MIKE GIFFORD MD 07/24/18 Isosorbide Mononitrate* (Isosorbide Mononitrate*) 30 Mg Tab.er.24h, 30 MG PO DAILY for 30 Days Prov:MIKE GIFFORD MD 07/24/18 Atorvastatin* (Atorvastatin*) 40 Mg Tablet, 40 MG PO HS for 30 Days, TAB Prov:MIKE GIFFORD MD 07/24/18 Escitalopram Oxalate* (Escitalopram Oxalate*) 10 Mg Tablet, 10 MG PO DAILY for 30 Days, #30 TAB Prov:MIKE GIFFORD MD 07/24/18 Gabapentin* (Gabapentin*) 300 Mg Capsule, 300 MG PO QHS for 30 Days, #60 CAP Prov:MIKE GIFFORD MD 07/24/18 Furosemide* (Furosemide*) 40 Mg Tablet, 40 MG PO BID for 30 Days, TAB Prov:MIKE GIFFORD MD 07/24/18 Calcium Acetate* (Calcium Acetate*) 667 Mg Capsule, 2001 MG PO WITH MEALS for 28 Days, #30 CAP Prov:MIKE GIFFORD MD 07/24/18 Reported Medications Ergocalciferol (Vitamin D2) (VITAMIN D2) 50,000 Unit Capsule, 16426 UNIT PO Q7D, CAP 07/10/18 Discontinued Reported Medications Nifedipine* (Nifedipine ER*) 30 Mg Tablet.sa, 30 MG PO DAILY, TAB.SA 06/25/18 Simvastatin* (Zocor*) 20 Mg Tablet, 20 MG PO QHS, #30 TAB 04/02/18 Allergies Allergies: Coded Allergies: benazepril (Verified Allergy, Unknown, 07/10/18) PMhx/Soc Chronic recurrent chest and abdominal pain, end-stage kidney disease hemodialys is dependent, diabetes mellitus, hypertension, chronic opioid abuse, vasculopathy, recent coronary artery CT revealing 50% plaque in LAD otherwise patent vessels, EF of 50% History of Surgery: Yes (appendectomy, cholecystectomy ) Anesthesia Reaction: No Hx Neurological Disorder: No Hx Respiratory Disorders: No Hx Cardiac Disorders: Yes (HTN ) Hx Psychiatric Problems: No Hx Miscellaneous Medical Probl: Yes (CKD, DEPRESSION) Hx Alcohol Use: No Hx Substance Use: Yes Hx Tobacco Use: No (former smoker ) Smoking Status: Former smoker Physical Exam Vitals Vital Signs Date Temp Pulse Resp B/P (MAP) Pulse Ox O2 O2 Flow FiO2 Time Delivery Rate 07/29/18 85 18 96 21 07:36 07/29/18 97.4 97 19 237/134 100 Room Air 06:11 (168) 07/29/18 97.4 94 19 237/134 100 05:52 (168) Physical Exam Const: No acute distress, afebrile Resp: Clear to auscultation bilaterally Cardio: Regular rate and rhythm, no murmurs Abd: Soft, non tender, non distended. Normal bowel sounds Skin: No petechiae or rashes Back: No midline or flank tenderness Ext: No cyanosis, or edema Neur: Awake and alert x3, no focal deficits or facial asymmetry, pupils equal round reactive to light Psych: Normal Mood and Affect Result Diagram: 07/29/1862907/29/18629 Results 24 hrs Laboratory Tests Test 07/29/18 06:30 07/29/18 07:32 White Blood Count 9.8 10^3/ul Red Blood Count 3.80 10^6/ul Hemoglobin 11.6 g/dl Hematocrit 36.2 % Mean Corpuscular Volume 95.3 fl Mean Corpuscular Hemoglobin 30.5 pg Mean Corpuscular Hemoglobin Concent 32.0 g/dl Red Cell Distribution Width 13.2 % Platelet Count 165 10^3/UL Mean Platelet Volume 13.8 fl Immature Granulocytes % 0.800 % Neutrophils % 70.4 % Lymphocytes % 13.8 % Monocytes % 10.3 % Eosinophils % 3.6 % Basophils % 1.1 % Nucleated Red Blood Cells % 0.0 /100WBC Immature Granulocytes # 0.080 10^3/ul Neutrophils # 6.9 10^3/ul Lymphocytes # 1.4 10^3/ul Monocytes # 1.0 10^3/ul Eosinophils # 0.4 10^3/ul Basophils # 0.1 10^3/ul Nucleated Red Blood Cells # 0.0 10^3/ul Sodium Level 140 mmol/L Potassium Level 6.1 mmol/L Chloride Level 97 mmol/L Carbon Dioxide Level 28 mmol/L Anion Gap 15 Blood Urea Nitrogen 74 mg/dl Creatinine 11.66 mg/dl Est Glomerular Filtrat Rate mL/min 5 mL/min Glucose Level 202 mg/dl Calcium Level 9.1 mg/dl Total Bilirubin 0.0 mg/dl Direct Bilirubin 0.00 mg/dl Indirect Bilirubin 0.0 mg/dl Aspartate Amino Transf (AST/SGOT) 20 IU/L Alanine Aminotransferase (ALT/SGPT) 24 IU/L Alkaline Phosphatase 80 IU/L Troponin I < 0.012 ng/ml Total Protein 7.8 g/dl Albumin 4.6 g/dl Globulin 3.20 g/dl Albumin/Globulin Ratio 1.43 Lipase 477 U/L Bedside Glucose 252 mg/dL Current Medications Medications Dose Sig/[place] Start Time Status Last (Trade) Ordered Route PRN Stop Time Admin Dose Reason Admin Ketorolac 15 mg ONCE STAT 07/29/18 DC 07/29/18 Tromethamine IV 06:22 06:41 (Toradol) 07/29/18 06:23 Calcium 110 ml @ ONCE ONCE 07/29/18 Gluconate 1 110 mls/hr IVPB 07:30 gm/Dextrose 07/29/18 08:29 Sodium 30 gm ONCE STAT 07/29/18 DC 07/29/18 Polystyrene PO 07:12 07:29 Sulfonate 07/29/18 07:16 (Kayexelate 15 Gm Kit (Powder+Sorbi radha)) Albuterol 10 mg ONCE STAT 07/29/18 DC 07/29/18 (Proventil INH 07:12 07:36 0.5% (Neb)) 07/29/18 07:16 Sodium 50 ml ONCE STAT 07/29/18 DC 07/29/18 Bicarbonate IV 07:12 07:33 (Na Bicarb 07/29/18 07:16 8.4% Syg) Dextrose 50 ml ONCE STAT 07/29/18 DC 07/29/18 (D50w IV 07:12 07:33 Syringe) 07/29/18 07:16 Insulin 8 unit ONCE STAT 07/29/18 DC 07/29/18 Human IVP 07:12 07:35 Regular 07/29/18 07:16 (Humulin R) Dextrose ONCE PRN 07/29/18 (D50w IV DECREASED 07:30 Syringe) GLUCOSE Hydralazine 20 mg ONCE ONCE 07/29/18 DC 07/29/18 HCl IV 07:30 07:29 (Apresoline) 07/29/18 07:31 Procedures/MDM IV line was established 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 Patient was afebrile EKG performed, read by me revealed a normal sinus rhythm at 95 bpm, normal axis, left ventricular conduction delay QRS duration 110 ms, no concerning ST elevations or depressions noted I administered Toradol 15 mg IV x1 for pain control Patient's diastolic blood pressure was initially around 120 mmHg and I administered hydralazine 20 mg IV x1 which improved blood pressure. CBC was normal, electrolytes revealed end-stage kidney disease and hyperkalemia 6.1, liver function tests normal, troponin negative For hyperkalemia administered albuterol 10 mg via nebulizer, calcium 1 g IV, dextrose, insulin, Kayexalate p.o. I spoke to patient's PMD Dr. Franklin who agreed to admit the patient. Departure Diagnosis: Primary Impression: Chest pain Chest pain type: unspecified Qualified Codes: R07.9 - Chest pain, unspecified Additional Impressions: End stage kidney disease Acute hyperkalemia Chronic pain syndrome Condition: JIMENA Wetzel MD Jul 29, 2018 06:19
[2018-07-29] MEDS ORDERED: KETOROLAC 15 MG INJ IV STA (06:22)
[2018-07-29] MEDS ORDERED: ALBUTEROL 0.5% (NEB) 2.5 MG/0.5 ML AMP INH STA (07:12)
[2018-07-29] MEDS ORDERED: DEXTROSE 50% 50 ML SYRINGE IV STA (07:12)
[2018-07-29] MEDS ORDERED: INSULIN REGULAR, HUMAN 100 UNIT/1 ML 3ML VIAL IVP STA (07:12)
[2018-07-29] MEDS ORDERED: SODIUM POLYSTYRENE 15 GM KIT (POWDER + SORBITOL) PO STA (07:12)
[2018-07-29] MEDS ORDERED: NA BICARBONATE 8.4% 50 ML SYG IV STA (07:12)
[2018-07-29] MEDS ORDERED: DEXTROSE 50% 50 ML SYRINGE IV PRN ×3 (07:30→18:00)
[2018-07-29] MEDS ORDERED: hydrALAzine 20 MG INJ IV ONE ×2 (07:30→10:30)
[2018-07-29] MEDS ORDERED: CALCIUM GLUCONATE 10% 1 GM in DEXTROSE 5% 100 ML IVPB ONE (07:30)
[2018-07-29] MEDS ORDERED: morphine 4 MG/ML VIAL IV STA (10:02)
[2018-07-29] MEDS ORDERED: hydrALAzine 20 MG INJ IV PRN (10:30)
[2018-07-29] MEDS ORDERED: ERGOCALCIFEROL 50,000 UNIT CAP PO SCH (10:30)
[2018-07-29] MEDS: ASPIRIN 81 MG TAB PO SCH (10:51)
[2018-07-29] MEDS: NIFEdipine (XL) 60 MG TAB PO SCH (11:31)
[2018-07-29] MEDS: CALCIUM ACETATE 667 MG CAP PO SCH ×2 (12:00→18:00)
[2018-07-29] MEDS: HYDROmorphONE 1 MG/ML SYG IV PRN ×2 (15:11→20:41)
--- NOTE | 2018-07-29 15:51 | QN ---
Documentation Comment pt was seen in MIKE Helm MD Jul 29, 2018 15:51
[2018-07-29] MEDS ORDERED: ONDANSETRON 4 MG INJ IV PRN (16:00)
[2018-07-29] MEDS ORDERED: NACL 0.9% 3 ML SYG IV SCH (16:00)
[2018-07-29] MEDS ORDERED: HYDROCODONE/APAP (5/325) TAB PO PRN (16:00)
[2018-07-29] MEDS ORDERED: MAGNESIUM HYDROXIDE 30ML CUP PO PRN (16:00)
--- NOTE | 2018-07-29 16:43 | HP ---
DATE OF ADMISSION: 07/29/2018 REASON FOR ADMISSION: Left upper quadrant pain/chest pain. HISTORY OF PRESENT ILLNESS: A 32-year-old male with a past medical history of end-stage renal diseas e on hemodialysis, diabetes, hypertension, hyperlipidemia, chronic opioid use, presented to the emerg ency department complaining of left-sided upper quadrant pain. Patient was recently admitted from to 07/24/2018. At that time, the patient had a full workup done, had an echocardiogram that showed EF of 50% to 55%. The patient had elevated troponin. Patient had a cardiac CT that showed n oncalcified plaques in the distal segment of the vessel producing 30% stenosis. No evidence of pulmo nary emboli, no airspace infiltrates or pulmonary nodules or pulmonary emboli. The patient was seen by GI. The patient had EGD that showed severe gastroparesis. Was started on Zofran, Pepsin, and als o had a CT of the thoracic and lumbar spine that shows some multilevel broad based bulges, multilevel neural foraminal stenosis. Patient was feeling better and was discharged home. The patient went fo r dialysis session today all of a sudden he started having pain in the left upper quadrant going to t he chest and the patient could not get the dialysis. On admission, blood pressure 237/134, afebrile, heart rate 97, respirations 19. Labs showed potassium of 6.1, BUN of 74, creatinine 11.6. Lipase 4 77. Troponin less than 0.012. EKG did not show any acute ST or T wave changes. The patient was adm itted for further management. PAST MEDICAL HISTORY: 1. Diabetes. 2. Hypertension. 3. Hyperlipidemia. 4. Chest pain with troponin leak. A CT angio showed 50% of the disease. 5. Status post EGD with gastroparesis. 6. Hypertension. 7. End-stage renal disease on hemodialysis Saturday, and Saturday 8. Diabetes with complication of diabetic nephropathy, retinopathy, neuropathy. 9. History of constipation. ALLERGIES: BENAZEPRIL. PAST SURGICAL HISTORY: Appendectomy, multiple eye surgeries for diabetic retinopathy, cholecystectom y and a PermCath placement. FAMILY HISTORY: Significant for diabetes. SOCIAL HISTORY: Lives with the family. Denies any alcohol or recreational drug use. MEDICATIONS: Using home. 1. Coreg. 2. Procardia. 3. Lexapro. 4. Gabapentin. 5. Rena Lara. 6. Lasix 40 b.i.d. 7. Calcium acetate with meals. 8. Protonix. REVIEW OF SYSTEMS: The patient complains of left upper quadrant pain radiating to the chest. Had so me vomiting and some nausea. Denied any diarrhea. Denied any chills, any hematuria, any dysuria. D enied any hematemesis, any melena, any blood per rectum. PHYSICAL EXAMINATION: VITAL SIGNS: Currently blood pressure 194/107, heart rate 102, respirations 18, saturating 100%. GENERAL: Patient is awake, alert, oriented, does not appear to be in mild distress secondary to pain . HEENT: Pupils equal, round, react to light. NECK: Supple. No JVD. HEART: Regular rate and rhythm. LUNGS: Clear to auscultation bilaterally. ABDOMEN: Some tenderness present in the left upper quadrant. EXTREMITIES: 1 to 2+ edema. The patient has a right chest Perm-A-Cath. DIAGNOSTIC DATA: Potassium 6.1, BUN of 74, creatinine 11.66, lipase of 477, protein less than 0.012. White count of 9.8, hemoglobin 11.2, platelet count 165. ASSESSMENT AND PLAN: This is a 32-year-old male with: 1. Recurrent left upper quadrant pain radiating to the chest. Patient had an extensive workup done in the past. The patient also had elevated troponins. Had a CT angio of the chest which showed 50% of the disease, nothing to be done by cardiology. The patient had CT of the chest which was negative for any pulmonary embolism. Patient also had a CT of the T and the L spine, which essentially showe d some mild disease. The only thing the patient had some mild elevated lipase. Patient is status po st cholecystectomy. 2. Pain control, questionable drug seeking behavior. 3. Diabetes. 4. Hyperkalemia. 5. Hypertensive urgency, likely noncompliant with medications. 6. Diabetes with complication of diabetes, nephropathy, retinopathy. 7. End-stage renal disease on hemodialysis. 8. History of cholecystectomy. 9. Status post esophagogastroduodenoscopy with gastroparesis. PLAN: At this period of time, the patient will be admitted to [facility]. Patient will be given his p.o. blood pressure medicine. The patient was also receives stat hemodialysis. EKG did not show any acut e ST or T wave abnormalities. Troponin was negative and the patient had a recent cardiac CT. We nellie l call GI consultation with Dr. Duong not sure if patient will need an ERCP given elevated lipase. Rest of the treatment will depend on the patient's hospitalization course. Dictated By: MIKE BIGGS/VIKTORIYA Conf#: [id number] DID#: [id number] CC: MIKE GFIFORD;*EndCC*
[2018-07-29] MEDS ORDERED: GLUCOSE GEL 15 GRAM TUBE PO PRN ×2 (18:00)
[2018-07-29] MEDS ORDERED: GLUCAGON 1 MG INJ IM PRN (18:00)
[2018-07-29] MEDS ORDERED: GLUCOSE GEL 15 GRAM TUBE BUCCAL PRN (18:00)
[2018-07-29] MEDS: HEPARIN 1000 UNITS/ML 10 ML INJ CATHETER SCH (19:01)
[2018-07-29] MEDS: SOD CHLORIDE 0.45% 1,000 ML IV SCH (20:08)
[2018-07-29] MEDS: ATORVASTATIN 40 MG TAB PO SCH (20:10)
[2018-07-29] MEDS: GABAPENTIN 300 MG CAP PO SCH (20:10)
[2018-07-29] MEDS: INSULIN ASPART [NOVOLOG] 3 ML PEN SC SCH (20:20)
[2018-07-29] MEDS: HEPARIN 5,000 UNIT/1 ML VIAL SC SCH (20:23)
[2018-07-30] VITALS (12 sets, daily range): BP systolic 140–193; BP diastolic 70–105; PULSE 60–85; RESP 17–20
[2018-07-30] MEDS: HYDROmorphONE 1 MG/ML SYG IV PRN ×4 (00:22→20:26)
[2018-07-30] MEDS: ACCU-CHEK XX SCH (01:52)
[2018-07-30] MEDS ORDERED: PANTOPRAZOLE 40 MG INJ IV SCH (06:00)
[2018-07-30] MEDS: CALCIUM ACETATE 667 MG CAP PO SCH ×3 (08:00→17:56)
[2018-07-30] MEDS: INSULIN ASPART [NOVOLOG] 3 ML PEN SC SCH ×4 (08:00→20:31)
[2018-07-30] MEDS: ESCITALOPRAM 10 MG TAB PO SCH (08:11)
[2018-07-30] MEDS: ASPIRIN 81 MG TAB PO SCH (08:12)
[2018-07-30] MEDS: FAMOTIDINE 20 MG TAB PO SCH (08:12)
[2018-07-30] MEDS: NIFEdipine (XL) 60 MG TAB PO SCH (08:14)
[2018-07-30] MEDS: HEPARIN 5,000 UNIT/1 ML VIAL SC SCH ×2 (08:20→20:31)
[2018-07-30] MEDS ORDERED: IODIXANOL LOCM 100 ML BTL ONE (10:44)
[2018-07-30] MEDS ORDERED: SOD CHLORIDE 0.9% 100 ML ONE (10:44)
--- NOTE | 2018-07-30 11:18 | CONS ---
Assessment/Plan Assessment/Plan Hospital Course (Demo Recall) Abdominal pain, back pain, chest pain Low normal left ventricular ejection fraction 50-55% End-stage renal disease hemodialysis Hypertension, uncontrolled Diabetes Vasculopathy -Patient symptoms are sharp abdomen, back and chest discomfort which radiates to his groin. Symptoms are positional and with deep inspiration. -CT coronary angiogram performed 07/16/2018 with moderate coronary artery disease in LAD, nonobstructive -ECG with no significant ischemic abnormalities, initial cardiac enzymes are negative -We will check serial cardiac enzymes, patient is pending CT imaging -Symptoms do not appear cardiac in origin at the current time -Continue statin therapy, beta-luis f, blood pressure control -Fluid management via hemodialysis as per nephrology Consultation Date/Type/Reason Admit Date/Time Jul 29, 2018 at 07:26 Type of Consult Cardiology Reason for Consultation Left-sided chest and abdominal pain Date/Time of Note DATE: 07/30/18 TIME: 11:13 Hx of Present Illness This is a 32-year-old male with past medical history of end-stage renal disease hemodialysis, hypertension, vasculopathy who presents with continued pain on the left side of his chest abdomen and back. Pain is sharp in nature, worse with deep inspiration and with movements. He denies any chest pressure. When the pain is severe, he does feel short of breath. Denies dizziness or lighthe adedness. Pain is the same pain is been having for months but waxes and wanes. Complains of intermittent nausea, denies current fevers or chills. 12 point review of systems was performed with all pertinent positives and negatives mentioned above and all else is negative Past Medical History Medical History: coronary artery disease, hypertension, renal disease Home Meds Active Scripts Hydrocodone Bit-Acetaminophen (Hydrocodone Bit-APAP) 5-325MG Tablet, 1 TAB PO Q6H PRN for .MOD PAIN 4-6 for 14 Days, TAB Prov:MIKE GIFFORD MD 07/24/18 Carvedilol* (Coreg*) 12.5 Mg Tablet, 12.5 MG PO BID for 30 Days, #60 TAB Prov:MIKE GIFFORD MD 07/24/18 Famotidine* (Famotidine*) 20 Mg Tablet, 20 MG PO DAILY for 30 Days, TAB Prov:MIKE GIFFORD MD 07/24/18 Polyethylene Glycol* (Miralax*) 17 Gm Powd.pack, 17 GM PO DAILY for 10 Days Prov:MIKE GIFFORD MD 07/24/18 Aspirin (Aspirin) 81 Mg Chew, 81 MG PO DAILY for 30 Days, TAB Prov:MIKE GIFFORD MD 07/24/18 Nifedipine (Procardia Xl) 60 Mg Tab.er.24, 60 MG PO DAILY for 30 Days, TAB Prov:MIKE GIFFORD MD 07/24/18 Isosorbide Mononitrate* (Isosorbide Mononitrate*) 30 Mg Tab.er.24h, 30 MG PO DAILY for 30 Days Prov:MIKE GIFFORD MD 07/24/18 Atorvastatin* (Atorvastatin*) 40 Mg Tablet, 40 MG PO HS for 30 Days, TAB Prov:MIKE GIFFORD MD 07/24/18 Escitalopram Oxalate* (Escitalopram Oxalate*) 10 Mg Tablet, 10 MG PO DAILY for 30 Days, #30 TAB Prov:MIKE GIFFORD MD 07/24/18 Gabapentin* (Gabapentin*) 300 Mg Capsule, 300 MG PO QHS for 30 Days, #60 CAP Prov:MIKE GIFFORD MD 07/24/18 Furosemide* (Furosemide*) 40 Mg Tablet, 40 MG PO BID for 30 Days, TAB Prov:MIKE GIFFORD MD 07/24/18 Calcium Acetate* (Calcium Acetate*) 667 Mg Capsule, 2001 MG PO WITH MEALS for 28 Days, #30 CAP Prov:MIKE GIFFORD MD 07/24/18 Reported Medications Ergocalciferol (Vitamin D2) (VITAMIN D2) 50,000 Unit Capsule, 89922 UNIT PO Q7D, CAP 07/10/18 Discontinued Reported Medications Nifedipine* (Nifedipine ER*) 30 Mg Tablet.sa, 30 MG PO DAILY, TAB.SA 06/25/18 Simvastatin* (Zocor*) 20 Mg Tablet, 20 MG PO QHS, #30 TAB 04/02/18 Medications Current Medications Hydralazine HCl (Apresoline) 10 mg Q4 PRN IV BLOOD PRESSURE Last administered on 07/30/18at 00:22; Admin Dose 10 MG; Start 07/29/18 at 10:30 Aspirin (Aspirin) 81 mg DAILY PO Last administered on 07/30/18at 08:12; Admin Dose 81 MG; Start 07/29/18 at 10:30 Atorvastatin Calcium (Lipitor) 40 mg HS PO Last administered on 07/29/18 20:10; Admin Dose 40 MG; Start 07/29/18 at 21:00 Calcium Acetate (Phoslo) 2,001 mg WITH MEALS PO ; Start 07/29/18 at 12:00 Carvedilol (Coreg) 12.5 mg BID PO Last administered on 07/30/18 08:13; Admin Dose 12.5 MG; Start 07/29/18 at 10:30 Ergocalciferol (Drisdol) 50,000 unit Q7D PO Last administered on 07/29/18 10:57; Admin Dose 50,000 UNIT; Start 07/29/18 at 10:30 Escitalopram Oxalate (Lexapro) 10 mg DAILY PO Last administered on 07/30/18 08:11; Admin Dose 10 MG; Start 07/30/18 at 09:00 Famotidine (Pepcid) 20 mg DAILY PO Last administered on 07/30/18 08:12; Admin Dose 20 MG; Start 07/30/18 at 09:00 Gabapentin (Neurontin) 300 mg QHS PO Last administered on 07/29/18 20:10; Admin Dose 300 MG; Start 07/29/18 at 21:00 Nifedipine (Procardia Xl) 60 mg DAILY PO Last administered on 07/30/18 08:14; Admin Dose 60 MG; Start 07/29/18 at 10:30 Hydromorphone HCl (Dilaudid) 1 mg Q3H PRN IV PAIN Last administered on 07/30/18 10:02; Admin Dose 1 MG; Start 07/29/18 at 15:00 IV Flush (NS 3 ml) 3 ml PER PROTOCOL IV ; Start 07/29/18 at 16:00 Ondansetron HCl (Zofran Inj) 4 mg Q6H PRN IV NAUSEA/VOMITING Last administered on 07/30/18 08:14; Admin Dose 4 MG; Start 07/29/18 at 16:00 Acetaminophen/ Hydrocodone Bitart ([place] (5/325)) 1 tab Q6H PRN PO .MOD PAIN 4- 6 Last administered on 07/30/18 08:14; Admin Dose 1 TAB; Start 07/29/18 at 16:00 Magnesium Hydroxide (Milk Of Mag) 30 ml DAILY PRN PO .CONSTIPATION; Start 07/29/18 at 16:00 Heparin Sodium (Porcine) (Heparin (5000 Units/1ml)) 5,000 unit Q12 SC Last administered on 07/30/18at 08:20; Admin Dose 5,000 UNIT; Start 07/29/18 at 21:00 Sodium Chloride 1,000 ml @ 40 mls/hr Q24H IV Last administered on 07/29/18at 20:08; Admin Dose 40 MLS/HR; Start 07/29/18 at 18:00 Diagnostic Test (Pha) (Accu-Chek) 1 ea 02 XX Last administered on 07/30/18at 01:52; Admin Dose 1 EA; Start 07/30/18 at 02:00 Insulin Aspart (Novolog Insulin Pen) NOVOLOG *MILD* ALGORITHM WITH MEALS BEDTIME SC Last administered on 07/29/18at 20:20; Admin Dose 1 UNIT; Start 07/29/18 at 21:00 Heparin Sodium (Porcine) (Heparin (1000 Units/ml)) 3,300 unit AFTER DIALYSIS CATHETER Last administered on 07/29/18at 19:01; Admin Dose 3,300 UNIT; Start at 16:30 Miscellaneous Information 1 ea NOTE XX ; Start 07/29/18 at 18:00 Glucose (Glutose) 15 gm Q15M PRN PO DECREASED GLUCOSE; Start 07/29/18 at 18:00 Glucose (Glutose) 22.5 gm Q15M PRN PO DECREASED GLUCOSE; Start 07/29/18 at 18:00 Dextrose (D50w Syringe) 25 ml Q15M PRN IV DECREASED GLUCOSE; Start 07/29/18 at 18:00 Dextrose (D50w Syringe) 50 ml Q15M PRN IV DECREASED GLUCOSE; Start 07/29/18 at 18:00 Glucagon (Glucagen) 1 mg Q15M PRN IM DECREASED GLUCOSE; Start 07/29/18 at 18:00 Glucose (Glutose) 15 gm Q15M PRN BUCCAL DECREASED GLUCOSE; Start 07/29/18 at 18:00 Allergies: Coded Allergies: benazepril (Verified Allergy, Unknown, 07/29/18) Past Surgical History Past Surgical Hx: appendectomy, cholecystectomy Social History Smoking Status: Former smoker Exam/Review of Systems Vital Signs Vitals Vital Signs Date Temp Pulse Resp B/P (MAP) Pulse Ox O2 O2 Flow FiO2 Time Delivery Rate 5/1/19 82 08:14 07/30/18 97.7 20 187/105 98 Room Air 07:27 (132) 07/29/18 21 07:36 Intake and Output 07/29/18 07/29/18 07/30/18 1515:00 23:00 07:00 IntakeIntake Total 0 ml 100 ml OutputOutput Total 3600 ml BalanceBalance -3600 ml 100 ml Exam Constitutional: alert, oriented (Sitting on edge of bed, complaining of pain with sitting up) Head: normocephalic Respiratory: other (Coarse breath sounds bilaterally, no wheezing) Cardiovascular: regular rate and rhythm (S1-S2 heard) Gastrointestinal: soft, bowel sounds, tender (Left upper quadrant) Musculoskeletal: other (Pain with palpation left side of abdomen, chest wall, and left back region) Extremities: edema (Trace) Labs Result Diagram: 07/30/18 0501 07/30/18 0501 Results 24hrs Laboratory Tests Test 07/29/18 20:15 07/30/18 01:45 07/30/18 05:01 07/30/18 07:37 Bedside Glucose 186 139 136 White Blood Count 7.4 # Red Blood Count 3.41 L Hemoglobin 10.4 L Hematocrit 32.5 L Mean Corpuscular Volume 95.3 Mean Corpuscular 30.5 Hemoglobin Mean Corpuscular 32.0 Hemoglobin Concent Red Cell Distribution 13.4 Width Platelet Count 156 Mean Platelet Volume 13.9 H Immature Granulocytes % 0.400 Neutrophils % 67.3 Lymphocytes % 16.7 Monocytes % 11.3 H Eosinophils % 3.3 Basophils % 1.0 Nucleated Red Blood 0.0 Cells % Immature Granulocytes # 0.030 Neutrophils # 5.0 Lymphocytes # 1.2 Monocytes # 0.8 Eosinophils # 0.2 Basophils # 0.1 Nucleated Red Blood 0.0 Cells # Sodium Level 137 Potassium Level 5.2 H Chloride Level 97 Carbon Dioxide Level 29 Anion Gap 11 Blood Urea Nitrogen 44 #H Creatinine 8.65 #H Est Glomerular Filtrat 7 L Rate mL/min Glucose Level 123 # Calcium Level 8.8 Phosphorus Level 6.6 H Magnesium Level 2.3 Total Bilirubin 0.1 L Direct Bilirubin 0.00 Indirect Bilirubin 0.1 Aspartate Amino 25 Transf (AST/SGOT) Alanine 21 Aminotransferase (ALT/S GPT) Alkaline Phosphatase 73 Total Protein 6.6 # Albumin 3.7 Globulin 2.90 Albumin/Globulin Ratio 1.27 Imaging Imaging ECG sinus rhythm, normal QRS duration,, no significant ischemic ST abnormalities Medications Medications Current Medications Hydralazine HCl (Apresoline) 10 mg Q4 PRN IV BLOOD PRESSURE Last administered on 07/30/18 00:22; Admin Dose 10 MG; Start 07/29/18 at 10:30 Aspirin (Aspirin) 81 mg DAILY PO Last administered on 07/30/18 08:12; Admin Dose 81 MG; Start 07/29/18 at 10:30 Atorvastatin Calcium (Lipitor) 40 mg HS PO Last administered on 07/29/18 20:10; Admin Dose 40 MG; Start 07/29/18 at 21:00 Calcium Acetate (Phoslo) 2,001 mg WITH MEALS PO ; Start 07/29/18 at 12:00 Carvedilol (Coreg) 12.5 mg BID PO Last administered on 07/30/18 08:13; Admin Dose 12.5 MG; Start 07/29/18 at 10:30 Ergocalciferol (Drisdol) 50,000 unit Q7D PO Last administered on 07/29/18 10:57; Admin Dose 50,000 UNIT; Start 07/29/18 at 10:30 Escitalopram Oxalate (Lexapro) 10 mg DAILY PO Last administered on 07/30/18 08:11; Admin Dose 10 MG; Start 07/30/18 at 09:00 Famotidine (Pepcid) 20 mg DAILY PO Last administered on 07/30/18 08:12; Admin Dose 20 MG; Start 07/30/18 at 09:00 Gabapentin (Neurontin) 300 mg QHS PO Last administered on 07/29/18 20:10; Admin Dose 300 MG; Start 07/29/18 at 21:00 Nifedipine (Procardia Xl) 60 mg DAILY PO Last administered on 07/30/18 08:14; Admin Dose 60 MG; Start 07/29/18 at 10:30 Hydromorphone HCl (Dilaudid) 1 mg Q3H PRN IV PAIN Last administered on 07/30/18 10:02; Admin Dose 1 MG; Start 07/29/18 at 15:00 IV Flush (NS 3 ml) 3 ml PER PROTOCOL IV ; Start 07/29/18 at 16:00 Ondansetron HCl (Zofran Inj) 4 mg Q6H PRN IV NAUSEA/VOMITING Last administered on 07/30/18 08:14; Admin Dose 4 MG; Start 07/29/18 at 16:00 Acetaminophen/ Hydrocodone Bitart ([place] (5/325)) 1 tab Q6H PRN PO .MOD PAIN 4- 6 Last administered on 07/30/18 08:14; Admin Dose 1 TAB; Start 07/29/18 at 16:00 Magnesium Hydroxide (Milk Of Mag) 30 ml DAILY PRN PO .CONSTIPATION; Start 07/29/18 at 16:00 Heparin Sodium (Porcine) (Heparin (5000 Units/1ml)) 5,000 unit Q12 SC Last administered on 07/30/18 08:20; Admin Dose 5,000 UNIT; Start 07/29/18 at 21:00 Sodium Chloride 1,000 ml @ 40 mls/hr Q24H IV Last administered on 07/29/18 20:08; Admin Dose 40 MLS/HR; Start 07/29/18 at 18:00 Diagnostic Test (Pha) (Accu-Chek) 1 ea 02 XX Last administered on 07/30/18at 01:52; Admin Dose 1 EA; Start 07/30/18 at 02:00 Insulin Aspart (Novolog Insulin Pen) NOVOLOG *MILD* ALGORITHM WITH MEALS BEDTIME SC Last administered on 07/29/18 20:20; Admin Dose 1 UNIT; Start 07/29/18 at 21:00 Heparin Sodium (Porcine) (Heparin (1000 Units/ml)) 3,300 unit AFTER DIALYSIS CATHETER Last administered on 07/29/18at 19:01; Admin Dose 3,300 UNIT; Start 07/29/18 at 16:30 Miscellaneous Information 1 ea NOTE XX ; Start 07/29/18 at 18:00 Glucose (Glutose) 15 gm Q15M PRN PO DECREASED GLUCOSE; Start 07/29/18 at 18:00 Glucose (Glutose) 22.5 gm Q15M PRN PO DECREASED GLUCOSE; Start 07/29/18 at 18:00 Dextrose (D50w Syringe) 25 ml Q15M PRN IV DECREASED GLUCOSE; Start 07/29/18 at 18:00 Dextrose (D50w Syringe) 50 ml Q15M PRN IV DECREASED GLUCOSE; Start 07/29/18 at 18:00 Glucagon (Glucagen) 1 mg Q15M PRN IM DECREASED GLUCOSE; Start 07/29/18 at 18:00 Glucose (Glutose) 15 gm Q15M PRN BUCCAL DECREASED GLUCOSE; Start 07/29/18 at 18:00 Jeremias Martinez DO July 30, 2018 11:18
[2018-07-30] MEDS ORDERED: PEG/ELECTROLYTES 4L BTL PO STA (16:38)
[2018-07-30] MEDS ORDERED: BISACODYL (EC) 5 MG TAB PO ONE (17:00)
[2018-07-30] MEDS: SOD CHLORIDE 0.45% 1,000 ML IV SCH (18:38)
--- NOTE | 2018-07-30 19:42 | CONS ---
DATE OF ADMISSION: 07/29/2018 DATE OF CONSULTATION: HISTORY OF PRESENT ILLNESS: A 32-year-old male with a past medical history of end-stage renal diseas e, diabetes mellitus on hemodialysis, hypertension, hyperlipidemia and chronic opioid use who comes t o the hospital complaining of left-sided upper abdominal pain radiating all the way to the back. No nausea, no vomiting. He is constipated. No chest pain, no shortness of breath. The patient's eject ion fraction was 50% to 55%. He had a CAT scan which showed a nondisplaced significant stenosis of t he coronary artery. GI consult was called in for a persistent left upper quadrant pain. The patient denies of consuming any kind of recreational drug use or marijuana. No GI bleeding, no chest pain, no shortness of breath. PAST MEDICAL HISTORY: As described. ALLERGIES: ALLERGIC TO BENAZEPRIL. PAST SURGICAL HISTORY: Appendectomy, multiple eye surgeries for diabetic retinopathy and cholecystec edison. FAMILY HISTORY: Significant for diabetes. MEDICATIONS: All reviewed. PHYSICAL EXAMINATION GENERAL: Well-built, nourished, not in distress. VITAL SIGNS: Stable. HEENT: Unremarkable. NECK: Supple, no thyromegaly, no lymphadenopathy. CARDIOVASCULAR: No murmur, gallop or click. LUNGS: Clear. ABDOMEN: Soft. Tenderness in the left upper quadrant. Bowel sounds good. No mass felt per abdomen . EXTREMITIES: No edema. CENTRAL NERVOUS SYSTEM: Grossly within normal limits. DIAGNOSTIC DATA: CAT scan of the abdomen and pelvis done multiple times ____ was negative. Hematocr it 32. CBC is otherwise stable. The patient's lipase was mildly elevated to 470. All the LFTs are within normal limits. Glucose is 252. IMPRESSION: 1. Persistent left upper quadrant pain, etiology is unclear at this point. 2. Diabetes mellitus. 3. Marijuana usage. 4. Hypertension. 5. Renal failure. 6. Status post cholecystectomy. 7. Gastroparesis. PLAN: At this point is to proceed with a colonoscopy because the patient's pain is mainly confined t o the left upper quadrant radiating to the back. This is not atypical for the pancreatitis. If colo noscopy is negative, then I have no choice but to do ERCP and sphincterotomy. I discussed both the p rocedure with the patient and he has agreed. In the interim, continue present care and continue pain management. Dictated By: MAXIMO KUHN MD PJ/NTS Conf#: [id number] DID#: [id number] CC: SHON MTZ MD;*EndCC*
[2018-07-30] MEDS: ATORVASTATIN 40 MG TAB PO SCH (20:27)
[2018-07-30] MEDS: GABAPENTIN 300 MG CAP PO SCH (20:27)
[2018-07-31] VITALS (25 sets, daily range): BP systolic 107–164; BP diastolic 69–85; PULSE 73–86; RESP 18–22
[2018-07-31] MEDS: HYDROmorphONE 1 MG/ML SYG IV PRN ×5 (00:01→21:17)
[2018-07-31] MEDS: ACCU-CHEK XX SCH (01:59)
--- NOTE | 2018-07-31 06:39 | PN ---
Date/Time of Note Date/Time of Note DATE: 07/31/18 TIME: 06:36 Assessment/Plan VTE Prophylaxis Risk score (from Ns)>0 risk: 2 SCD applied (from Ns): Yes Pharmacological prophylaxis: NA/contraindicated Pharm contraindication: low risk/ambulating Lines/Catheters IV C[facility] Type [facility]from [facility] Peripheral IV Assessment/Plan Hospital Course his is a 32-year-old male with: 1. Recurrent left upper quadrant pain radiating to the chest. Patient had an extensive workup done in the past. The patient also had elevated troponins. Had a CT angio of the chest which showed 50% of the disease, nothing to be done by cardiology. The patient had CT of the chest which was negative for any pulm onary embolism. Patient also had a CT of the T and the L spine, which essentially showed some mild disease. The only thing the patient had some mild elevated lipase. Patient is status post cholecystectomy. 3. Diabetes. 4. Hyperkalemia. 5. Hypertensive urgency, likely noncompliant with medications. 6. Diabetes with complication of diabetes, nephropathy, retinopathy. 7. End-stage renal disease on hemodialysis. 8. History of cholecystectomy. 9. Status post esophagogastroduodenoscopy with gastroparesis. PLAN - WILL Get CT WITH contrast again - pain control - fu GI/Cardiac recs - HD - CW PPI - cw lasix/losartan/nifedipine Result Diagram: 07/30/18 0501 07/30/18 0501 Results 24hrs Laboratory Tests Test 07/30/18 07:37 07/30/18 11:35 07/30/18 17:37 07/30/18 20:29 Bedside Glucose 136 138 152 157 Subjective 24 Hr Interval Summary Free Text/Dictation Pt was seen on late note entry severe pain in LUQ Exam/Review of Systems Exam Vitals Vital Signs Date Temp Pulse Resp B/P (MAP) Pulse Ox O2 O2 Flow FiO2 Time Delivery Rate 07/31/18 98.4 79 18 142/81 98 04:17 (101) 07/30/18 Room Air 15:05 07/29/18 21 07:36 Intake and Output 07/30/18 07/30/18 07/31/18 1515:00 23:00 07:00 IntakeIntake Total 920 ml BalanceBalance 920 ml Exam GENERAL: Patient is awake, alert, oriented, does not appear to be in mild distress secondary to pain. HEENT: Pupils equal, round, react to light. NECK: Supple. No JVD. HEART: Regular rate and rhythm. LUNGS: Clear to auscultation bilaterally. ABDOMEN: Some tenderness present in the left upper quadrant. EXTREMITIES: 1 to 2+ edema. The patient has a right chest Perm-A-Cath. Results Results 24hrs Laboratory Tests Test 07/30/18 07:37 07/30/18 11:35 07/30/18 17:37 07/30/18 20:29 Bedside Glucose 136 138 152 157 Medications Medication Current Medications Hydralazine HCl (Apresoline) 10 mg Q4 PRN IV BLOOD PRESSURE Last administered on 07/30/18 00:22; Admin Dose 10 MG; Start 07/29/18 at 10:30 Aspirin (Aspirin) 81 mg DAILY PO Last administered on 07/30/18 08:12; Admin Dose 81 MG; Start 07/29/18 at 10:30 Atorvastatin Calcium (Lipitor) 40 mg HS PO Last administered on 07/30/18 20:27; Admin Dose 40 MG; Start 07/29/18 at 21:00 Calcium Acetate (Phoslo) 2,001 mg WITH MEALS PO ; Start 07/29/18 at 12:00 Carvedilol (Coreg) 12.5 mg BID PO Last administered on 07/30/18 20:28; Admin Dose 12.5 MG; Start 07/29/18 at 10:30 Ergocalciferol (Drisdol) 50,000 unit Q7D PO Last administered on 07/29/18at 10:57; Admin Dose 50,000 UNIT; Start 07/29/18 at 10:30 Escitalopram Oxalate (Lexapro) 10 mg DAILY PO Last administered on 07/30/18 08:11; Admin Dose 10 MG; Start 07/30/18 at 09:00 Famotidine (Pepcid) 20 mg DAILY PO Last administered on 07/30/18 08:12; Admin Dose 20 MG; Start 07/30/18 at 09:00 Gabapentin (Neurontin) 300 mg QHS PO Last administered on 07/30/18 20:27; Admin Dose 300 MG; Start 07/29/18 at 21:00 Nifedipine (Procardia Xl) 60 mg DAILY PO Last administered on 07/30/18 08:14; Admin Dose 60 MG; Start 07/29/18 at 10:30 Hydromorphone HCl (Dilaudid) 1 mg Q3H PRN IV PAIN Last administered on 07/31/18 03:05; Admin Dose 1 MG; Start 07/29/18 at 15:00 IV Flush (NS 3 ml) 3 ml PER PROTOCOL IV ; Start 07/29/18 at 16:00 Ondansetron HCl (Zofran Inj) 4 mg Q6H PRN IV NAUSEA/VOMITING Last administered on 07/30/18 08:14; Admin Dose 4 MG; Start 07/29/18 at 16:00 Acetaminophen/ Hydrocodone Bitart ([place] (5/325)) 1 tab Q6H PRN PO .MOD PAIN 4- 6 Last administered on 07/30/18 08:14; Admin Dose 1 TAB; Start 07/29/18 at 16:00 Magnesium Hydroxide (Milk Of Mag) 30 ml DAILY PRN PO .CONSTIPATION; Start 07/29/18 at 16:00 Heparin Sodium (Porcine) (Heparin (5000 Units/1ml)) 5,000 unit Q12 SC Last administered on 07/30/18 20:31; Admin Dose 5,000 UNIT; Start 07/29/18 at 21:00 Sodium Chloride 1,000 ml @ 40 mls/hr Q24H IV Last administered on 07/30/18 18:38; Admin Dose 40 MLS/HR; Start 07/29/18 at 18:00 Diagnostic Test (Pha) (Accu-Chek) 1 ea 02 XX Last administered on 07/30/18 01:52; Admin Dose 1 EA; Start 07/30/18 at 02:00 Insulin Aspart (Novolog Insulin Pen) NOVOLOG *MILD* ALGORITHM WITH MEALS BEDTIME SC Last administered on 07/30/18 17:45; Admin Dose 1 UNIT; Start 07/29/18 at 21:00 Heparin Sodium (Porcine) (Heparin (1000 Units/ml)) 3,300 unit AFTER DIALYSIS CATHETER Last administered on 07/29/18 19:01; Admin Dose 3,300 UNIT; Start 07/29/18 at 16:30 Miscellaneous Information 1 ea NOTE XX ; Start 07/29/18 at 18:00 Glucose (Glutose) 15 gm Q15M PRN PO DECREASED GLUCOSE; Start 07/29/18 at 18:00 Glucose (Glutose) 22.5 gm Q15M PRN PO DECREASED GLUCOSE; Start 07/29/18 at 18:00 Dextrose (D50w Syringe) 25 ml Q15M PRN IV DECREASED GLUCOSE; Start 07/29/18 at 18:00 Dextrose (D50w Syringe) 50 ml Q15M PRN IV DECREASED GLUCOSE; Start 07/29/18 at 18:00 Glucagon (Glucagen) 1 mg Q15M PRN IM DECREASED GLUCOSE; Start 07/29/18 at 18:00 Glucose (Glutose) 15 gm Q15M PRN BUCCAL DECREASED GLUCOSE; Start 07/29/18 at 18:00 MIKE GIFFORD MD July 31, 2018 06:39
[2018-07-31] MEDS: CALCIUM ACETATE 667 MG CAP PO SCH ×3 (07:27→17:07)
[2018-07-31] MEDS: INSULIN ASPART [NOVOLOG] 3 ML PEN SC SCH ×4 (07:39→21:38)
[2018-07-31] MEDS: ESCITALOPRAM 10 MG TAB PO SCH (08:14)
[2018-07-31] MEDS: ASPIRIN 81 MG TAB PO SCH (08:14)
[2018-07-31] MEDS: FAMOTIDINE 20 MG TAB PO SCH (08:14)
[2018-07-31] MEDS: NIFEdipine (XL) 60 MG TAB PO SCH (08:15)
[2018-07-31] MEDS: HEPARIN 5,000 UNIT/1 ML VIAL SC SCH ×2 (08:23→21:37)
--- NOTE | 2018-07-31 09:39 | PN ---
Date/Time of Note Date/Time of Note DATE: 07/31/18 TIME: 09:39 Assessment/Plan VTE Prophylaxis Risk score (from Nsg)>0 risk: 2 SCD applied (from Nsg): Yes Lines/Catheters IV Catheter Type (from Nrsg): Raghav Assessment/Plan Hospital Course his is a 32-year-old male with: 1. Recurrent left upper quadrant pain radiating to the chest. Patient had an extensive workup done in the past. The patient also had elevated troponins. Had a CT angio of the chest which showed 50% of the disease, nothing to be done by cardiology. The patient had CT of the chest which was negative for any pulmonary embolism. Patient also had a CT of the T and the L spine, which essentially showed some mild disease. The only thing the patient had some mild elevated lipase. Patient is status post cholecystectomy. 3. Diabetes. 4. Hyperkalemia. 5. Hypertensive urgency, likely noncompliant with medications. 6. Diabetes with complication of diabetes, nephropathy, retinopathy. 7. End-stage renal disease on hemodialysis. 8. History of cholecystectomy. 9. Status post esophagogastroduodenoscopy with gastroparesis. PLAN - WILL Get CT WITH contrast again - pain control - fu GI/Cardiac recs - HD - CW PPI - cw lasix/losartan/nifedipine Result Diagram: 07/30/18 0501 07/31/18 0717 Results 24hrs Laboratory Tests Test 07/30/18 11:35 07/30/18 17:37 07/30/18 20:29 07/31/18 07:17 Bedside Glucose 138 152 157 Sodium Level 137 Potassium Level 5.4 H Chloride Level 97 Carbon Dioxide Level 27 Anion Gap 13 Blood Urea Nitrogen 55 H Creatinine 10.63 H Est Glomerular Filtrat 6 L Rate mL/min Glucose Level 101 Calcium Level 8.9 Test 07/31/18 07:38 Bedside Glucose 109 Exam/Review of Systems Exam Vitals Vital Signs Date Temp Pulse Resp B/P (MAP) Pulse Ox O2 O2 Flow FiO2 Time Delivery Rate 07/31/18 76 08:07 07/31/18 97.5 22 164/85 96 Room Air 07:29 (111) 07/29/18 21 07:36 Intake and Output 07/30/18 07/30/18 07/31/18 1515:00 23:00 07:00 IntakeIntake Total 920 ml 400 ml BalanceBalance 920 ml 400 ml Results Results 24hrs Laboratory Tests Test 07/30/18 11:35 07/30/18 17:37 07/30/18 20:29 07/31/18 07:17 Bedside Glucose 138 152 157 Sodium Level 137 Potassium Level 5.4 H Chloride Level 97 Carbon Dioxide Level 27 Anion Gap 13 Blood Urea Nitrogen 55 H Creatinine 10.63 H Est Glomerular Filtrat 6 L Rate mL/min Glucose Level 101 Calcium Level 8.9 Test 07/31/18 07:38 Bedside Glucose 109 Medications Medication Current Medications Hydralazine HCl (Apresoline) 10 mg Q4 PRN IV BLOOD PRESSURE Last administered on 07/30/18 00:22; Admin Dose 10 MG; Start 07/29/18 at 10:30 Aspirin (Aspirin) 81 mg DAILY PO Last administered on 07/31/18 08:14; Admin Dose 81 MG; Start 07/29/18 at 10:30 Atorvastatin Calcium (Lipitor) 40 mg HS PO Last administered on 07/30/18 20:27; Admin Dose 40 MG; Start 07/29/18 at 21:00 Calcium Acetate (Phoslo) 2,001 mg WITH MEALS PO ; Start 07/29/18 at 12:00 Carvedilol (Coreg) 12.5 mg BID PO Last administered on 07/31/18 08:15; Admin Dose 12.5 MG; Start 07/29/18 at 10:30 Ergocalciferol (Drisdol) 50,000 unit Q7D PO Last administered on 07/29/18at 10:57; Admin Dose 50,000 UNIT; Start 07/29/18 at 10:30 Escitalopram Oxalate (Lexapro) 10 mg DAILY PO Last administered on 07/31/18 08:14; Admin Dose 10 MG; Start 07/30/18 at 09:00 Famotidine (Pepcid) 20 mg DAILY PO Last administered on 07/31/18 08:14; Admin Dose 20 MG; Start 07/30/18 at 09:00 Gabapentin (Neurontin) 300 mg QHS PO Last administered on 07/30/18 20:27; Admin Dose 300 MG; Start 07/29/18 at 21:00 Nifedipine (Procardia Xl) 60 mg DAILY PO Last administered on 07/31/18 08:15; Admin Dose 60 MG; Start 07/29/18 at 10:30 Hydromorphone HCl (Dilaudid) 1 mg Q3H PRN IV PAIN Last administered on 07/31/18 08:16; Admin Dose 1 MG; Start 07/29/18 at 15:00 IV Flush (NS 3 ml) 3 ml PER PROTOCOL IV ; Start 07/29/18 at 16:00 Ondansetron HCl (Zofran Inj) 4 mg Q6H PRN IV NAUSEA/VOMITING Last administered on 07/30/18 08:14; Admin Dose 4 MG; Start 07/29/18 at 16:00 Acetaminophen/ Hydrocodone Bitart ([place] (5/325)) 1 tab Q6H PRN PO .MOD PAIN 4- 6 Last administered on 07/30/18 08:14; Admin Dose 1 TAB; Start 07/29/18 at 16:00 Magnesium Hydroxide (Milk Of Mag) 30 ml DAILY PRN PO .CONSTIPATION; Start 07/29/18 at 16:00 Heparin Sodium (Porcine) (Heparin (5000 Units/1ml)) 5,000 unit Q12 SC Last administered on 07/31/18 08:23; Admin Dose 5,000 UNIT; Start 07/29/18 at 21:00 Sodium Chloride 1,000 ml @ 40 mls/hr Q24H IV Last administered on 07/30/18 18:38; Admin Dose 40 MLS/HR; Start 07/29/18 at 18:00 Diagnostic Test (Pha) (Accu-Chek) 1 ea 02 XX Last administered on 07/30/18 01:52; Admin Dose 1 EA; Start 07/30/18 at 02:00 Insulin Aspart (Novolog Insulin Pen) NOVOLOG *MILD* ALGORITHM WITH MEALS BEDTIME SC Last administered on 07/30/18 17:45; Admin Dose 1 UNIT; Start 07/29/18 at 21:00 Heparin Sodium (Porcine) (Heparin (1000 Units/ml)) 3,300 unit AFTER DIALYSIS CATHETER Last administered on 07/29/18 19:01; Admin Dose 3,300 UNIT; Start 07/29/18 at 16:30 Miscellaneous Information 1 ea NOTE XX ; Start 07/29/18 at 18:00 Glucose (Glutose) 15 gm Q15M PRN PO DECREASED GLUCOSE; Start 07/29/18 at 18:00 Glucose (Glutose) 22.5 gm Q15M PRN PO DECREASED GLUCOSE; Start 07/29/18 at 18:00 Dextrose (D50w Syringe) 25 ml Q15M PRN IV DECREASED GLUCOSE; Start 07/29/18 at 18:00 Dextrose (D50w Syringe) 50 ml Q15M PRN IV DECREASED GLUCOSE; Start 07/29/18 at 18:00 Glucagon (Glucagen) 1 mg Q15M PRN IM DECREASED GLUCOSE; Start 07/29/18 at 18:00 Glucose (Glutose) 15 gm Q15M PRN BUCCAL DECREASED GLUCOSE; Start 07/29/18 at 18:00 MIKE GIFFORD MD July 31, 2018 09:39
--- NOTE | 2018-07-31 09:45 | PN ---
Date/Time of Note Date/Time of Note DATE: 07/31/18 TIME: 09:45 Assessment/Plan VTE Prophylaxis Risk score (from Nsg)>0 risk: 2 SCD applied (from Nsg): Yes Pharmacological prophylaxis: NA/contraindicated Pharm contraindication: low risk/ambulating Lines/Catheters [facility] Assessment/Plan Hospital Course his is a 32-year-old male with: 1. Recurrent left upper quadrant pain radiating to the chest. Patient had an extensive workup done in the past. The patient also had elevated troponins. Had a CT angio of the chest which showed 50% of the disease, nothing to be done by cardiology. The patient had CT of the chest which was negative for any pulmonary embolism. Patient also had a CT of the T and the L spine, which essentially showed some mild disease. The only thing the patient had some mild elevated lipase. Patient is status post cholecystectomy.? trauma due to insulin injection 3. Diabetes. 4. Hyperkalemia. 5. Hypertensive urgency, likely noncompliant with medications. 6. Diabetes with complication of diabetes, nephropathy, retinopathy. 7. End-stage renal disease on hemodialysis. 8. History of cholecystectomy. 9. Status post esophagogastroduodenoscopy with gastroparesis. PLAN - Refused colonoscopy , using F words" says does no wnat anything going in his back" - CT a+p findings discussed with Dr Aquino radiolgy per him could be due to injection of lovenox/insulin in LUQ, when confronted with pt he said that he does use insulin there but says he is not stupid to have caused injury due to that, also dr Chavarria - pain control - fu GI/Cardiac recs - HD today - advance diet - CW PPI - cw lasix/losartan/nifedipine Result Diagram: 07/30/18 0501 07/31/18 0717 Results 24hrs Laboratory Tests Test 07/30/18 11:35 07/30/18 17:37 07/30/18 20:29 07/31/18 07:17 Bedside Glucose 138 152 157 Sodium Level 137 Potassium Level 5.4 H Chloride Level 97 Carbon Dioxide Level 27 Anion Gap 13 Blood Urea Nitrogen 55 H Creatinine 10.63 H Est Glomerular Filtrat 6 L Rate mL/min Glucose Level 101 Calcium Level 8.9 Test 07/31/18 07:38 Bedside Glucose 109 Subjective 24 Hr Interval Summary Free Text/Dictation spoke to dr aquino yesterday about CT scan results in LUQ, he thinks probably findings could happen due to insulin/lovenox usage confronted with patient he said he does use insulin in LUQ at home, when spoke to him that it could happen " he said he is not stupid" he knows how to use insulin Exam/Review of Systems Exam Vitals Vital Signs Date Temp Pulse Resp B/P (MAP) Pulse Ox O2 O2 Flow FiO2 Time Delivery Rate 07/31/18 76 08:07 07/31/18 97.5 22 164/85 96 Room Air 07:29 (111) 07/29/18 21 07:36 Intake and Output 07/30/18 07/30/18 07/31/18 1515:00 23:00 07:00 IntakeIntake Total 920 ml 400 ml BalanceBalance 920 ml 400 ml Exam GENERAL: Patient is awake, alert, oriented, does not appear to be in mild distress secondary to pain. HEENT: Pupils equal, round, react to light. NECK: Supple. No JVD. HEART: Regular rate and rhythm. LUNGS: Clear to auscultation bilaterally. ABDOMEN: Some tenderness present in the left upper quadrant. EXTREMITIES: 1 to 2+ edema. The patient has a right chest Perm-A-Cath. Results Results 24hrs Laboratory Tests Test 07/30/18 11:35 07/30/18 17:37 07/30/18 20:29 07/31/18 07:17 Bedside Glucose 138 152 157 Sodium Level 137 Potassium Level 5.4 H Chloride Level 97 Carbon Dioxide Level 27 Anion Gap 13 Blood Urea Nitrogen 55 H Creatinine 10.63 H Est Glomerular Filtrat 6 L Rate mL/min Glucose Level 101 Calcium Level 8.9 Test 07/31/18 07:38 Bedside Glucose 109 Medications Medication Current Medications Hydralazine HCl (Apresoline) 10 mg Q4 PRN IV BLOOD PRESSURE Last administered on 07/30/18at 00:22; Admin Dose 10 MG; Start 07/29/18 at 10:30 Aspirin (Aspirin) 81 mg DAILY PO Last administered on 07/31/18at 08:14; Admin Dose 81 MG; Start 07/29/18 at 10:30 Atorvastatin Calcium (Lipitor) 40 mg HS PO Last administered on 07/30/18at 20:27; Admin Dose 40 MG; Start 07/29/18 at 21:00 Calcium Acetate (Phoslo) 2,001 mg WITH MEALS PO ; Start 07/29/18 at 12:00 Carvedilol (Coreg) 12.5 mg BID PO Last administered on 07/31/18 08:15; Admin Dose 12.5 MG; Start 07/29/18 at 10:30 Ergocalciferol (Drisdol) 50,000 unit Q7D PO Last administered on 07/29/18 10:57; Admin Dose 50,000 UNIT; Start 07/29/18 at 10:30 Escitalopram Oxalate (Lexapro) 10 mg DAILY PO Last administered on 07/31/18 08:14; Admin Dose 10 MG; Start 07/30/18 at 09:00 Famotidine (Pepcid) 20 mg DAILY PO Last administered on 07/31/18 08:14; Admin Dose 20 MG; Start 07/30/18 at 09:00 Gabapentin (Neurontin) 300 mg QHS PO Last administered on 07/30/18 20:27; Admin Dose 300 MG; Start 07/29/18 at 21:00 Nifedipine (Procardia Xl) 60 mg DAILY PO Last administered on 07/31/18 08:15; Admin Dose 60 MG; Start 07/29/18 at 10:30 Hydromorphone HCl (Dilaudid) 1 mg Q3H PRN IV PAIN Last administered on 07/31/18 08:16; Admin Dose 1 MG; Start 07/29/18 at 15:00 IV Flush (NS 3 ml) 3 ml PER PROTOCOL IV ; Start 07/29/18 at 16:00 Ondansetron HCl (Zofran Inj) 4 mg Q6H PRN IV NAUSEA/VOMITING Last administered on 07/30/18 08:14; Admin Dose 4 MG; Start 07/29/18 at 16:00 Acetaminophen/ Hydrocodone Bitart ([place] (5/325)) 1 tab Q6H PRN PO .MOD PAIN 4- 6 Last administered on 07/30/18 08:14; Admin Dose 1 TAB; Start 07/29/18 at 16:00 Magnesium Hydroxide (Milk Of Mag) 30 ml DAILY PRN PO .CONSTIPATION; Start 07/29/18 at 16:00 Heparin Sodium (Porcine) (Heparin (5000 Units/1ml)) 5,000 unit Q12 SC Last administered on 07/31/18 08:23; Admin Dose 5,000 UNIT; Start 07/29/18 at 21:00 Sodium Chloride 1,000 ml @ 40 mls/hr Q24H IV Last administered on 07/30/18 18:38; Admin Dose 40 MLS/HR; Start 07/29/18 at 18:00 Diagnostic Test (Pha) (Accu-Chek) 1 ea 02 XX Last administered on 07/30/18 01:52; Admin Dose 1 EA; Start 07/30/18 at 02:00 Insulin Aspart (Novolog Insulin Pen) NOVOLOG *MILD* ALGORITHM WITH MEALS BEDTIME SC Last administered on 07/30/18 17:45; Admin Dose 1 UNIT; Start 07/29/18 at 21:00 Heparin Sodium (Porcine) (Heparin (1000 Units/ml)) 3,300 unit AFTER DIALYSIS CATHETER Last administered on 07/29/18 19:01; Admin Dose 3,300 UNIT; Start 07/29/18 at 16:30 Miscellaneous Information 1 ea NOTE XX ; Start 07/29/18 at 18:00 Glucose (Glutose) 15 gm Q15M PRN PO DECREASED GLUCOSE; Start 07/29/18 at 18:00 Glucose (Glutose) 22.5 gm Q15M PRN PO DECREASED GLUCOSE; Start 07/29/18 at 18:00 Dextrose (D50w Syringe) 25 ml Q15M PRN IV DECREASED GLUCOSE; Start 07/29/18 at 18:00 Dextrose (D50w Syringe) 50 ml Q15M PRN IV DECREASED GLUCOSE; Start 07/29/18 at 18:00 Glucagon (Glucagen) 1 mg Q15M PRN IM DECREASED GLUCOSE; Start 07/29/18 at 18:00 Glucose (Glutose) 15 gm Q15M PRN BUCCAL DECREASED GLUCOSE; Start 07/29/18 at 18:00 MIKE GIFFORD MD July 31, 2018 09:45
--- NOTE | 2018-07-31 12:12 | CONS ---
Assessment/Plan Assessment/Plan Hospital Course (Demo Recall) Abdominal pain, back pain, chest pain Low normal left ventricular ejection fraction 50-55% End-stage renal disease hemodialysis Hypertension, uncontrolled Diabetes Vasculopathy -Patient symptoms are sharp abdomen, back and chest discomfort which radiates to his groin. Symptoms are positional and with deep inspiration. Symptoms have improved today -CT coronary angiogram performed 07/16/2018 with moderate coronary artery disease in LAD, nonobstructive -Serial cardiac enzymes remain negative -ECG with no significant ischemic abnormalities -Symptoms do not appear cardiac in origin at the current time -Continue statin therapy, beta-luis f, blood pressure control -Fluid management via hemodialysis as per nephrology Consultation Date/Type/Reason Admit Date/Time Jul 29, 2018 at 07:26 Initial Consult Date Type of Consult Cardiology Date/Time of Note DATE: 07/31/18 TIME: 12:11 24 HR Interval Summary Free Text/Dictation Feels better today. Less left-sided discomfort. Exam/Review of Systems Vital Signs Vitals Vital Signs Date Temp Pulse Resp B/P (MAP) Pulse Ox O2 O2 Flow FiO2 Time Delivery Rate 07/31/18 84 12:07 07/31/18 97.9 22 135/69 96 Room Air 11:57 (91) 07/29/18 21 07:36 Intake and Output 07/30/18 07/30/18 07/31/18 1515:00 23:00 07:00 IntakeIntake Total 920 ml 400 ml BalanceBalance 920 ml 400 ml Exam Constitutional: alert, oriented (No apparent distress) Head: normocephalic Respiratory: other (Coarse breath sounds bilaterally, no wheezing) Cardiovascular: regular rate and rhythm, other (S1-S2 heard) Gastrointestinal: soft, non-tender, bowel sounds Extremities: other (No significant edema) Labs Result Diagram: 07/30/18 0501 07/31/18 0717 Results 24hrs Laboratory Tests Test 07/30/18 17:37 07/30/18 20:29 07/31/18 07:17 07/31/18 07:38 Bedside Glucose 152 157 109 Sodium Level 137 Potassium Level 5.4 H Chloride Level 97 Carbon Dioxide Level 27 Anion Gap 13 Blood Urea Nitrogen 55 H Creatinine 10.63 H Est Glomerular Filtrat 6 L Rate mL/min Glucose Level 101 Calcium Level 8.9 Test 07/31/18 11:16 Bedside Glucose 242 H Medications Medications Current Medications Hydralazine HCl (Apresoline) 10 mg Q4 PRN IV BLOOD PRESSURE Last administered on 07/30/18 00:22; Admin Dose 10 MG; Start 07/29/18 at 10:30 Aspirin (Aspirin) 81 mg DAILY PO Last administered on 07/31/18 08:14; Admin Dose 81 MG; Start 07/29/18 at 10:30 Atorvastatin Calcium (Lipitor) 40 mg HS PO Last administered on 07/30/18 20:27; Admin Dose 40 MG; Start 07/29/18 at 21:00 Calcium Acetate (Phoslo) 2,001 mg WITH MEALS PO ; Start 07/29/18 at 12:00 Carvedilol (Coreg) 12.5 mg BID PO Last administered on 07/31/18 08:15; Admin Dose 12.5 MG; Start 07/29/18 at 10:30 Ergocalciferol (Drisdol) 50,000 unit Q7D PO Last administered on 07/29/18 10:57; Admin Dose 50,000 UNIT; Start 07/29/18 at 10:30 Escitalopram Oxalate (Lexapro) 10 mg DAILY PO Last administered on 07/31/18 08:14; Admin Dose 10 MG; Start 07/30/18 at 09:00 Famotidine (Pepcid) 20 mg DAILY PO Last administered on 07/31/18 08:14; Admin Dose 20 MG; Start 07/30/18 at 09:00 Gabapentin (Neurontin) 300 mg QHS PO Last administered on 07/30/18 20:27; Admin Dose 300 MG; Start 07/29/18 at 21:00 Nifedipine (Procardia Xl) 60 mg DAILY PO Last administered on 07/31/18 08:15; Admin Dose 60 MG; Start 07/29/18 at 10:30 Hydromorphone HCl (Dilaudid) 1 mg Q3H PRN IV PAIN Last administered on 07/31/18 08:16; Admin Dose 1 MG; Start 07/29/18 at 15:00 IV Flush (NS 3 ml) 3 ml PER PROTOCOL IV ; Start 07/29/18 at 16:00 Ondansetron HCl (Zofran Inj) 4 mg Q6H PRN IV NAUSEA/VOMITING Last administered on 5/1/19at 08:14; Admin Dose 4 MG; Start 07/29/18 at 16:00 Acetaminophen/ Hydrocodone Bitart ([place] (5/325)) 1 tab Q6H PRN PO .MOD PAIN 4- 6 Last administered on 07/30/18 08:14; Admin Dose 1 TAB; Start 07/29/18 at 16:00 Magnesium Hydroxide (Milk Of Mag) 30 ml DAILY PRN PO .CONSTIPATION; Start 07/29/18 at 16:00 Heparin Sodium (Porcine) (Heparin (5000 Units/1ml)) 5,000 unit Q12 SC Last administered on 07/31/18 08:23; Admin Dose 5,000 UNIT; Start 07/29/18 at 21:00 Diagnostic Test (Pha) (Accu-Chek) 1 ea 02 XX Last administered on 07/30/18 01:52; Admin Dose 1 EA; Start 07/30/18 at 02:00 Insulin Aspart (Novolog Insulin Pen) NOVOLOG *MILD* ALGORITHM WITH MEALS BEDTIME SC Last administered on 07/31/18 11:26; Admin Dose 3 UNIT; Start 07/29/18 at 21:00 Heparin Sodium (Porcine) (Heparin (1000 Units/ml)) 3,300 unit AFTER DIALYSIS CATHETER Last administered on 07/29/18 19:01; Admin Dose 3,300 UNIT; Start 07/29/18 at 16:30 Miscellaneous Information 1 ea NOTE XX ; Start 07/29/18 at 18:00 Glucose (Glutose) 15 gm Q15M PRN PO DECREASED GLUCOSE; Start 07/29/18 at 18:00 Glucose (Glutose) 22.5 gm Q15M PRN PO DECREASED GLUCOSE; Start 07/29/18 at 18:00 Dextrose (D50w Syringe) 25 ml Q15M PRN IV DECREASED GLUCOSE; Start 07/29/18 at 18:00 Dextrose (D50w Syringe) 50 ml Q15M PRN IV DECREASED GLUCOSE; Start 07/29/18 at 18:00 Glucagon (Glucagen) 1 mg Q15M PRN IM DECREASED GLUCOSE; Start 07/29/18 at 18:00 Glucose (Glutose) 15 gm Q15M PRN BUCCAL DECREASED GLUCOSE; Start 07/29/18 at 18:00 Jeremias Martinez DO July 31, 2018 12:12
--- NOTE | 2018-07-31 12:14 | CONS ---
Assessment/Plan Assessment/Plan Assessment/Plan (Daily) IMPRESSION: 1. Persistent left upper quadrant pain, etiology is unclear at this point. 2. Diabetes mellitus. 3. Marijuana usage. 4. Hypertension. 5. Renal failure. 6. Status post cholecystectomy. 7. Gastroparesis. Plan Patient was scheduled for colonoscopy today but he refused to take GoLYTELY He started using F word and very uncooperative. We will monitor amylase lipase Continue present care Consultation Date/Type/Reason Admit Date/Time Jul 29, 2018 at 07:26 Initial Consult Date Date/Time of Note DATE: 07/31/18 TIME: 12:13 24 HR Interval Summary Free Text/Dictation Patient's complaints of left upper quadrant pain. No nausea no vomiting Exam/Review of Systems Exam Vitals Vital Signs Date Temp Pulse Resp B/P (MAP) Pulse Ox O2 O2 Flow FiO2 Time Delivery Rate 07/31/18 84 12:07 07/31/18 97.9 22 135/69 96 Room Air 11:57 (91) 07/29/18 21 07:36 Intake and Output 07/30/18 07/30/18 07/31/18 1414:59 22:59 06:59 IntakeIntake Total 920 ml 400 ml BalanceBalance 920 ml 400 ml Constitutional: alert, oriented, well developed Psych: no complaints, nl mood/affect Head: normocephalic, atraumatic Eyes: nl conjunctiva, EOMI, nl lids, nl sclera, PERRL ENMT: nl external ears & nose, nl lips & teeth, nl nasal mucosa & septum Neck: supple, non-tender Respiratory: clear to auscultation, normal air movement Cardiovascular: regular rate and rhythm, nl pulses Gastrointestinal: soft, nl liver, spleen, non-tender Musculoskeletal: nl extremities to inspection, nl gait and stance Extremities: normal pulses Neurological: 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-XII 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, nl mental status, nl speech, nl strength Skin: nl turgor; No rash or lesions Lymph: nl lymph nodes Results Result Diagram: 07/30/18 0501 07/31/18 0717 Results 24hrs Laboratory Tests Test 07/30/18 17:37 07/30/18 20:29 07/31/18 07:17 07/31/18 07:38 Bedside Glucose 152 157 109 Sodium Level 137 Potassium Level 5.4 H Chloride Level 97 Carbon Dioxide Level 27 Anion Gap 13 Blood Urea Nitrogen 55 H Creatinine 10.63 H Est Glomerular Filtrat 6 L Rate mL/min Glucose Level 101 Calcium Level 8.9 Test 07/31/18 11:16 Bedside Glucose 242 H Medications Medication Current Medications Hydralazine HCl (Apresoline) 10 mg Q4 PRN IV BLOOD PRESSURE Last administered on 07/30/18 00:22; Admin Dose 10 MG; Start 07/29/18 at 10:30 Aspirin (Aspirin) 81 mg DAILY PO Last administered on 07/31/18 08:14; Admin Dose 81 MG; Start 07/29/18 at 10:30 Atorvastatin Calcium (Lipitor) 40 mg HS PO Last administered on 07/30/18 20:27; Admin Dose 40 MG; Start 07/29/18 at 21:00 Calcium Acetate (Phoslo) 2,001 mg WITH MEALS PO ; Start 07/29/18 at 12:00 Carvedilol (Coreg) 12.5 mg BID PO Last administered on 07/31/18 08:15; Admin Dose 12.5 MG; Start 07/29/18 at 10:30 Ergocalciferol (Drisdol) 50,000 unit Q7D PO Last administered on 07/29/18 10:57; Admin Dose 50,000 UNIT; Start 07/29/18 at 10:30 Escitalopram Oxalate (Lexapro) 10 mg DAILY PO Last administered on 07/31/18 08:14; Admin Dose 10 MG; Start 07/30/18 at 09:00 Famotidine (Pepcid) 20 mg DAILY PO Last administered on 07/31/18 08:14; Admin Dose 20 MG; Start 07/30/18 at 09:00 Gabapentin (Neurontin) 300 mg QHS PO Last administered on 07/30/18 20:27; Admin Dose 300 MG; Start 07/29/18 at 21:00 Nifedipine (Procardia Xl) 60 mg DAILY PO Last administered on 07/31/18 08:15; Admin Dose 60 MG; Start 07/29/18 at 10:30 Hydromorphone HCl (Dilaudid) 1 mg Q3H PRN IV PAIN Last administered on 07/31/18 08:16; Admin Dose 1 MG; Start 07/29/18 at 15:00 IV Flush (NS 3 ml) 3 ml PER PROTOCOL IV ; Start 07/29/18 at 16:00 Ondansetron HCl (Zofran Inj) 4 mg Q6H PRN IV NAUSEA/VOMITING Last administered on 07/30/18 08:14; Admin Dose 4 MG; Start 07/29/18 at 16:00 Acetaminophen/ Hydrocodone Bitart ([place] (5/325)) 1 tab Q6H PRN PO .MOD PAIN 4- 6 Last administered on 07/30/18 08:14; Admin Dose 1 TAB; Start 07/29/18 at 16:00 Magnesium Hydroxide (Milk Of Mag) 30 ml DAILY PRN PO .CONSTIPATION; Start at 16:00 Heparin Sodium (Porcine) (Heparin (5000 Units/1ml)) 5,000 unit Q12 SC Last administered on 07/31/18 08:23; Admin Dose 5,000 UNIT; Start 07/29/18 at 21:00 Diagnostic Test (Pha) (Accu-Chek) 1 ea 02 XX Last administered on 07/30/18at 01:52; Admin Dose 1 EA; Start 07/30/18 at 02:00 Insulin Aspart (Novolog Insulin Pen) NOVOLOG *MILD* ALGORITHM WITH MEALS BEDTIME SC Last administered on 07/31/18 11:26; Admin Dose 3 UNIT; Start 07/29/18 at 21:00 Heparin Sodium (Porcine) (Heparin (1000 Units/ml)) 3,300 unit AFTER DIALYSIS CATHETER Last administered on 07/29/18at 19:01; Admin Dose 3,300 UNIT; Start 07/29/18 at 16:30 Miscellaneous Information 1 ea NOTE XX ; Start 07/29/18 at 18:00 Glucose (Glutose) 15 gm Q15M PRN PO DECREASED GLUCOSE; Start 07/29/18 at 18:00 Glucose (Glutose) 22.5 gm Q15M PRN PO DECREASED GLUCOSE; Start 07/29/18 at 18:00 Dextrose (D50w Syringe) 25 ml Q15M PRN IV DECREASED GLUCOSE; Start 07/29/18 at 18:00 Dextrose (D50w Syringe) 50 ml Q15M PRN IV DECREASED GLUCOSE; Start 07/29/18 at 18:00 Glucagon (Glucagen) 1 mg Q15M PRN IM DECREASED GLUCOSE; Start 07/29/18 at 18:00 Glucose (Glutose) 15 gm Q15M PRN BUCCAL DECREASED GLUCOSE; Start 07/29/18 at 18:00 MAXIMO KUHN MD July 31, 2018 12:14
[2018-07-31] MEDS: HEPARIN 1000 UNITS/ML 10 ML INJ CATHETER SCH (21:12)
[2018-07-31] MEDS: ATORVASTATIN 40 MG TAB PO SCH (21:17)
[2018-07-31] MEDS: GABAPENTIN 300 MG CAP PO SCH (21:17)
[2018-08-01] VITALS (13 sets, daily range): BP systolic 112–178; BP diastolic 69–96; PULSE 73–85; RESP 17–20
[2018-08-01] MEDS: ACCU-CHEK XX SCH (01:18)
[2018-08-01] MEDS: HYDROmorphONE 1 MG/ML SYG IV PRN ×5 (01:19→19:52)
[2018-08-01] MEDS: CALCIUM ACETATE 667 MG CAP PO SCH ×3 (07:51→17:18)
[2018-08-01] MEDS: ASPIRIN 81 MG TAB PO SCH (08:06)
[2018-08-01] MEDS: FAMOTIDINE 20 MG TAB PO SCH (08:07)
[2018-08-01] MEDS: ESCITALOPRAM 10 MG TAB PO SCH (08:07)
[2018-08-01] MEDS: NIFEdipine (XL) 60 MG TAB PO SCH (08:07)
[2018-08-01] MEDS: HEPARIN 5,000 UNIT/1 ML VIAL SC SCH ×2 (08:14→20:43)
[2018-08-01] MEDS: INSULIN ASPART [NOVOLOG] 3 ML PEN SC SCH ×5 (08:14→20:43)
--- NOTE | 2018-08-01 11:53 | CONS ---
Assessment/Plan Assessment/Plan Hospital Course (Demo Recall) Abdominal pain, back pain, chest pain Low normal left ventricular ejection fraction 50-55% End-stage renal disease hemodialysis Hypertension, uncontrolled Diabetes Vasculopathy -Patient symptoms are sharp abdomen, back and chest discomfort which radiates to his groin. Symptoms are positional and with deep inspiration. Symptoms have been improving. -CT coronary angiogram performed 07/16/2018 with moderate coronary artery disease in LAD, nonobstructive -Serial cardiac enzymes remain negative -ECG with no significant ischemic abnormalities -Symptoms do not appear cardiac in origin at the current time -Continue statin therapy, beta-luis f, blood pressure control -Fluid management via hemodialysis as per nephrology Consultation Date/Type/Reason Admit Date/Time Jul 29, 2018 at 07:26 Initial Consult Date Type of Consult Cardiology Date/Time of Note DATE: 08/01/18 TIME: 11:52 24 HR Interval Summary Free Text/Dictation No shortness of breath, still with left sided abdominal and back pain Exam/Review of Systems Vital Signs Vitals Vital Signs Date Temp Pulse Resp B/P (MAP) Pulse Ox O2 O2 Flow FiO2 Time Delivery Rate 08/01/18 82 08:00 08/01/18 98.2 17 166/89 99 Room Air 07:28 (114) 07/29/18 21 07:36 Intake and Output 07/31/18 07/31/18 08/01/18 1515:00 23:00 07:00 IntakeIntake Total 1000 ml 830 ml 480 ml OutputOutput Total 3200 ml 2800 ml BalanceBalance 1000 ml -2370 ml -2320 ml Exam Constitutional: alert, oriented (No apparent distress) Head: normocephalic Respiratory: other (Coarse breath sounds bilaterally, no wheezing) Cardiovascular: regular rate and rhythm (S1-S2 heard) Gastrointestinal: soft, non-tender, bowel sounds Extremities: edema (Trace) Labs Result Diagram: 07/30/18 0501 08/01/18 0453 Results 24hrs Laboratory Tests Test 07/31/18 17:10 07/31/18 21:26 08/01/18 01:17 08/01/18 04:53 Bedside Glucose 136 191 275 H Sodium Level 137 Potassium Level 4.9 Chloride Level 98 Carbon Dioxide Level 28 Anion Gap 11 Blood Urea Nitrogen 41 #H Creatinine 8.26 #H Est Glomerular Filtrat 7 L Rate mL/min Glucose Level 184 Calcium Level 8.1 L Amylase Level 87 Lipase 171 Test 08/01/18 07:54 08/01/18 11:38 Bedside Glucose 208 161 Medications Medications Current Medications Hydralazine HCl (Apresoline) 10 mg Q4 PRN IV BLOOD PRESSURE Last administered on 07/30/18 00:22; Admin Dose 10 MG; Start 07/29/18 at 10:30 Aspirin (Aspirin) 81 mg DAILY PO Last administered on 08/01/18 08:06; Admin Dose 81 MG; Start 07/29/18 at 10:30 Atorvastatin Calcium (Lipitor) 40 mg HS PO Last administered on 07/31/18 21:17; Admin Dose 40 MG; Start 07/29/18 at 21:00 Calcium Acetate (Phoslo) 2,001 mg WITH MEALS PO ; Start 07/29/18 at 12:00 Carvedilol (Coreg) 12.5 mg BID PO Last administered on 08/01/18 08:07; Admin Dose 12.5 MG; Start 07/29/18 at 10:30 Ergocalciferol (Drisdol) 50,000 unit Q7D PO Last administered on 07/29/18 10:57; Admin Dose 50,000 UNIT; Start 07/29/18 at 10:30 Escitalopram Oxalate (Lexapro) 10 mg DAILY PO Last administered on 08/01/18 08:07; Admin Dose 10 MG; Start 07/30/18 at 09:00 Famotidine (Pepcid) 20 mg DAILY PO Last administered on 08/01/18 08:07; Admin Dose 20 MG; Start 07/30/18 at 09:00 Gabapentin (Neurontin) 300 mg QHS PO Last administered on 07/31/18 21:17; Admin Dose 300 MG; Start 07/29/18 at 21:00 Nifedipine (Procardia Xl) 60 mg DAILY PO Last administered on 08/01/18 08:07; Admin Dose 60 MG; Start 07/29/18 at 10:30 Hydromorphone HCl (Dilaudid) 1 mg Q3H PRN IV PAIN Last administered on 08/01/18 09:45; Admin Dose 1 MG; Start 07/29/18 at 15:00 IV Flush (NS 3 ml) 3 ml PER PROTOCOL IV ; Start 07/29/18 at 16:00 Ondansetron HCl (Zofran Inj) 4 mg Q6H PRN IV NAUSEA/VOMITING Last administered on 07/30/18 08:14; Admin Dose 4 MG; Start 07/29/18 at 16:00 Acetaminophen/ Hydrocodone Bitart ([place] (5/325)) 1 tab Q6H PRN PO .MOD PAIN 4- 6 Last administered on 07/30/18 08:14; Admin Dose 1 TAB; Start 07/29/18 at 16:00 Magnesium Hydroxide (Milk Of Mag) 30 ml DAILY PRN PO .CONSTIPATION; Start 07/29/18 at 16:00 Heparin Sodium (Porcine) (Heparin (5000 Units/1ml)) 5,000 unit Q12 SC Last administered on 08/01/18 08:14; Admin Dose 5,000 UNIT; Start 07/29/18 at 21:00 Diagnostic Test (Pha) (Accu-Chek) 1 ea 02 XX Last administered on 07/30/18at 01:52; Admin Dose 1 EA; Start 07/30/18 at 02:00 Insulin Aspart (Novolog Insulin Pen) NOVOLOG *MILD* ALGORITHM WITH MEALS BEDTIME SC Last administered on 08/01/18 11:45; Admin Dose 1 UNIT; Start 07/29/18 at 21:00 Heparin Sodium (Porcine) (Heparin (1000 Units/ml)) 3,300 unit AFTER DIALYSIS CATHETER Last administered on 07/31/18at 21:12; Admin Dose 3,300 UNIT; Start 07/29/18 at 16:30 Miscellaneous Information 1 ea NOTE XX ; Start 07/29/18 at 18:00 Glucose (Glutose) 15 gm Q15M PRN PO DECREASED GLUCOSE; Start 07/29/18 at 18:00 Glucose (Glutose) 22.5 gm Q15M PRN PO DECREASED GLUCOSE; Start 07/29/18 at 18: 00 Dextrose (D50w Syringe) 25 ml Q15M PRN IV DECREASED GLUCOSE; Start 07/29/18 at 18:00 Dextrose (D50w Syringe) 50 ml Q15M PRN IV DECREASED GLUCOSE; Start 07/29/18 at 18:00 Glucagon (Glucagen) 1 mg Q15M PRN IM DECREASED GLUCOSE; Start 07/29/18 at 18:00 Glucose (Glutose) 15 gm Q15M PRN BUCCAL DECREASED GLUCOSE; Start 07/29/18 at 18:00 Jeremias Martinez DO August 01, 2018 11:53
--- NOTE | 2018-08-01 13:50 | CONS ---
Assessment/Plan Assessment/Plan Assessment/Plan (Daily) Assessment/Plan (Daily) IMPRESSION: 1. Persistent left upper quadrant pain, etiology is unclear at this point. 2. Diabetes mellitus. 3. Marijuana usage. 4. Hypertension. 5. Renal failure. 6. Status post cholecystectomy. 7. Gastroparesis. Plan Patient is very uncooperative We will monitor amylase lipase all within normal limit Continue present car Pain management Consultation Date/Type/Reason Admit Date/Time Jul 29, 2018 at 07:26 Initial Consult Date Date/Time of Note DATE: 08/01/18 TIME: 13:49 24 HR Interval Summary Free Text/Dictation Pain left upper quadrant Exam/Review of Systems Exam Vitals Vital Signs Date Temp Pulse Resp B/P (MAP) Pulse Ox O2 O2 Flow FiO2 Time Delivery Rate 08/01/18 98.2 80 20 168/90 98 Room Air 12:38 (116) 07/29/18 21 07:36 Intake and Output 07/31/18 07/31/18 08/01/18 1515:00 23:00 07:00 IntakeIntake Total 1000 ml 830 ml 480 ml OutputOutput Total 3200 ml 2800 ml BalanceBalance 1000 ml -2370 ml -2320 ml Constitutional: alert, oriented, well developed Psych: no complaints, nl mood/affect Head: normocephalic, atraumatic Eyes: nl conjunctiva, EOMI, nl lids, nl sclera, PERRL ENMT: nl external ears & nose, nl lips & teeth, nl nasal mucosa & septum Neck: supple, non-tender Respiratory: clear to auscultation, normal air movement Cardiovascular: regular rate and rhythm, nl pulses Gastrointestinal: soft, nl liver, spleen, non-tender Musculoskeletal: nl extremities to inspection, nl gait and stance Extremities: normal pulses 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, nl mental status, nl speech, nl strength Skin: nl turgor; No rash or lesions Lymph: nl lymph nodes Results Result Diagram: 07/30/18 0501 08/01/18 0453 Results 24hrs Laboratory Tests Test 07/31/18 17:10 07/31/18 21:26 08/01/18 01:17 08/01/18 04:53 Bedside Glucose 136 191 275 H Sodium Level 137 Potassium Level 4.9 Chloride Level 98 Carbon Dioxide Level 28 Anion Gap 11 Blood Urea Nitrogen 41 #H Creatinine 8.26 #H Est Glomerular Filtrat 7 L Rate mL/min Glucose Level 184 Calcium Level 8.1 L Amylase Level 87 Lipase 171 Test 08/01/18 07:54 08/01/18 11:38 Bedside Glucose 208 161 Medications Medication Current Medications Hydralazine HCl (Apresoline) 10 mg Q4 PRN IV BLOOD PRESSURE Last administered on 07/30/18 00:22; Admin Dose 10 MG; Start 07/29/18 at 10:30 Aspirin (Aspirin) 81 mg DAILY PO Last administered on 08/01/18 08:06; Admin Dose 81 MG; Start 07/29/18 at 10:30 Atorvastatin Calcium (Lipitor) 40 mg HS PO Last administered on 07/31/18 21:17; Admin Dose 40 MG; Start 07/29/18 at 21:00 Calcium Acetate (Phoslo) 2,001 mg WITH MEALS PO ; Start 07/29/18 at 12:00 Carvedilol (Coreg) 12.5 mg BID PO Last administered on 08/01/18 08:07; Admin Dose 12.5 MG; Start 07/29/18 at 10:30 Ergocalciferol (Drisdol) 50,000 unit Q7D PO Last administered on 07/29/18 10:57; Admin Dose 50,000 UNIT; Start 07/29/18 at 10:30 Escitalopram Oxalate (Lexapro) 10 mg DAILY PO Last administered on 08/01/18 08:07; Admin Dose 10 MG; Start 07/30/18 at 09:00 Famotidine (Pepcid) 20 mg DAILY PO Last administered on 08/01/18 08:07; Admin Dose 20 MG; Start 07/30/18 at 09:00 Gabapentin (Neurontin) 300 mg QHS PO Last administered on 07/31/18 21:17; Admin Dose 300 MG; Start 07/29/18 at 21:00 Nifedipine (Procardia Xl) 60 mg DAILY PO Last administered on 08/01/18 08:07; Admin Dose 60 MG; Start 07/29/18 at 10:30 Hydromorphone HCl (Dilaudid) 1 mg Q3H PRN IV PAIN Last administered on 08/01/18 09:45; Admin Dose 1 MG; Start 07/29/18 at 15:00 IV Flush (NS 3 ml) 3 ml PER PROTOCOL IV ; Start 07/29/18 at 16:00 Ondansetron HCl (Zofran Inj) 4 mg Q6H PRN IV NAUSEA/VOMITING Last administered on 07/30/18 08:14; Admin Dose 4 MG; Start 07/29/18 at 16:00 Acetaminophen/ Hydrocodone Bitart ([place] (5/325)) 1 tab Q6H PRN PO .MOD PAIN 4- 6 Last administered on 07/30/18 08:14; Admin Dose 1 TAB; Start 07/29/18 at 16:00 Magnesium Hydroxide (Milk Of Mag) 30 ml DAILY PRN PO .CONSTIPATION; Start 07/29/18 at 16:00 Heparin Sodium (Porcine) (Heparin (5000 Units/1ml)) 5,000 unit Q12 SC Last administered on 08/01/18 08:14; Admin Dose 5,000 UNIT; Start 07/29/18 at 21:00 Diagnostic Test (Pha) (Accu-Chek) 1 ea 02 XX Last administered on 07/30/18at 01:52; Admin Dose 1 EA; Start 07/30/18 at 02:00 Insulin Aspart (Novolog Insulin Pen) NOVOLOG *MILD* ALGORITHM WITH MEALS BEDTIME SC Last administered on 08/01/18 11:45; Admin Dose 1 UNIT; Start 07/29/18 at 21:00 Heparin Sodium (Porcine) (Heparin (1000 Units/ml)) 3,300 unit AFTER DIALYSIS CATHETER Last administered on 07/31/18 21:12; Admin Dose 3,300 UNIT; Start 07/29/18 at 16:30 Miscellaneous Information 1 ea NOTE XX ; Start 07/29/18 at 18:00 Glucose (Glutose) 15 gm Q15M PRN PO DECREASED GLUCOSE; Start 07/29/18 at 18:00 Glucose (Glutose) 22.5 gm Q15M PRN PO DECREASED GLUCOSE; Start 07/29/18 at 18:00 Dextrose (D50w Syringe) 25 ml Q15M PRN IV DECREASED GLUCOSE; Start 07/29/18 at 18:00 Dextrose (D50w Syringe) 50 ml Q15M PRN IV DECREASED GLUCOSE; Start 07/29/18 at 18:00 Glucagon (Glucagen) 1 mg Q15M PRN IM DECREASED GLUCOSE; Start 07/29/18 at 18:00 Glucose (Glutose) 15 gm Q15M PRN BUCCAL DECREASED GLUCOSE; Start 07/29/18 at 1 8:00 MAXIMO KUHN MD August 01, 2018 13:50
--- NOTE | 2018-08-01 16:26 | CONS ---
Assessment/Plan Assessment/Plan Hospital Course (Demo Recall) 32 yo with ESRD on HD admitted with chronic abdo pain who is found to have a small LUQ soft tissue mass felt to be injection related but unclear -recommend Abdo US -if negative, would recommend serial evaluation with CT AP in about 3-4 mos -check AFP, BHCG. LDH -consider check CT chest to evaluate for other areas of LAD or mass Consultation Date/Type/Reason Admit Date/Time Jul 29, 2018 at 07:26 Date/Time of Note DATE: 08/01/18 TIME: 16:26 32-year-old male with ESRD on HD, HTN, admitted with LUQ abdo pain. HE had CT AP with contrast showing: -There are multiple unchanged small subcutaneous nodules involving the anterior lower abdominal wall. However there is now a localized area of irregular air in the anterior subcutaneous left lower abdominal wall with an adjacent approximately 3 x 1.5 cm soft tissue mass of uncertain etiology and may represent a hematoma and wound. Other etiologies cannot be excluded including neoplasm. Recommend clinical correlation and follow-up He has had chronic pain denies LOW, fevers, chills Constitutional: no complaints, improved Eyes: no complaints ENT: no complaints Respiratory: no complaints Gastrointestinal: pain Genitourinary: no complaints Musculoskeletal: no complaints Skin: no complaints Neurologic: no complaints Past Medical History Home Meds Active Scripts Hydrocodone Bit-Acetaminophen (Hydrocodone Bit-APAP) 5-325MG Tablet, 1 TAB PO Q6H PRN for .MOD PAIN 4-6 for 14 Days, TAB Prov:MIKE GIFFORD MD 07/24/18 Carvedilol* (Coreg*) 12.5 Mg Tablet, 12.5 MG PO BID for 30 Days, #60 TAB Prov:MIKE GIFFORD MD 07/24/18 Famotidine* (Famotidine*) 20 Mg Tablet, 20 MG PO DAILY for 30 Days, TAB Prov:MIKE GIFFORD MD 07/24/18 Polyethylene Glycol* (Miralax*) 17 Gm Powd.pack, 17 GM PO DAILY for 10 Days Prov:MIKE GIFFORD MD 07/24/18 Aspirin (Aspirin) 81 Mg Chew, 81 MG PO DAILY for 30 Days, TAB Prov:MIKE GIFFORD MD 07/24/18 Nifedipine (Procardia Xl) 60 Mg Tab.er.24, 60 MG PO DAILY for 30 Days, TAB Prov:MIKE GIFFORD MD 07/24/18 Isosorbide Mononitrate* (Isosorbide Mononitrate*) 30 Mg Tab.er.24h, 30 MG PO DAILY for 30 Days Prov:MIKE GIFFORD MD 07/24/18 Atorvastatin* (Atorvastatin*) 40 Mg Tablet, 40 MG PO HS for 30 Days, TAB Prov:MIKE GIFFORD MD 07/24/18 Escitalopram Oxalate* (Escitalopram Oxalate*) 10 Mg Tablet, 10 MG PO DAILY for 30 Days, #30 TAB Prov:MIKE GIFFORD MD 07/24/18 Gabapentin* (Gabapentin*) 300 Mg Capsule, 300 MG PO QHS for 30 Days, #60 CAP Prov:MIKE GIFFORD MD 07/24/18 Furosemide* (Furosemide*) 40 Mg Tablet, 40 MG PO BID for 30 Days, TAB Prov:MIKE GIFFORD MD 07/24/18 Calcium Acetate* (Calcium Acetate*) 667 Mg Capsule, 2001 MG PO WITH MEALS for 28 Days, #30 CAP Prov:MIKE GIFFORD MD 07/24/18 Reported Medications Ergocalciferol (Vitamin D2) (VITAMIN D2) 50,000 Unit Capsule, 61831 UNIT PO Q7D, CAP 07/10/18 Medications Current Medications Hydralazine HCl (Apresoline) 10 mg Q4 PRN IV BLOOD PRESSURE Last administered on 07/30/18at 00:22; Admin Dose 10 MG; Start 07/29/18 at 10:30 Aspirin (Aspirin) 81 mg DAILY PO Last administered on 08/01/18at 08:06; Admin Dose 81 MG; Start 07/29/18 at 10:30 Atorvastatin Calcium (Lipitor) 40 mg HS PO Last administered on 07/31/18at 21:17; Admin Dose 40 MG; Start 07/29/18 at 21:00 Calcium Acetate (Phoslo) 2,001 mg WITH MEALS PO ; Start 07/29/18 at 12:00 Carvedilol (Coreg) 12.5 mg BID PO Last administered on 08/01/18at 08:07; Admin Dose 12.5 MG; Start 07/29/18 at 10:30 Ergocalciferol (Drisdol) 50,000 unit Q7D PO Last administered on 4/30/19at 10: 57; Admin Dose 50,000 UNIT; Start 07/29/18 at 10:30 Escitalopram Oxalate (Lexapro) 10 mg DAILY PO Last administered on 08/01/18 08:07; Admin Dose 10 MG; Start 07/30/18 at 09:00 Famotidine (Pepcid) 20 mg DAILY PO Last administered on 08/01/18 08:07; Admin Dose 20 MG; Start 07/30/18 at 09:00 Gabapentin (Neurontin) 300 mg QHS PO Last administered on 07/31/18 21:17; Admin Dose 300 MG; Start 07/29/18 at 21:00 Nifedipine (Procardia Xl) 60 mg DAILY PO Last administered on 08/01/18 08:07; Admin Dose 60 MG; Start 07/29/18 at 10:30 Hydromorphone HCl (Dilaudid) 1 mg Q3H PRN IV PAIN Last administered on 08/01/18 14:31; Admin Dose 1 MG; Start 07/29/18 at 15:00 IV Flush (NS 3 ml) 3 ml PER PROTOCOL IV ; Start 07/29/18 at 16:00 Ondansetron HCl (Zofran Inj) 4 mg Q6H PRN IV NAUSEA/VOMITING Last administered on 07/30/18 08:14; Admin Dose 4 MG; Start 07/29/18 at 16:00 Acetaminophen/ Hydrocodone Bitart ([place] (5/325)) 1 tab Q6H PRN PO .MOD PAIN 4- 6 Last administered on 07/30/18 08:14; Admin Dose 1 TAB; Start 07/29/18 at 16:00 Magnesium Hydroxide (Milk Of Mag) 30 ml DAILY PRN PO .CONSTIPATION; Start 07/29/18 at 16:00 Heparin Sodium (Porcine) (Heparin (5000 Units/1ml)) 5,000 unit Q12 SC Last administered on 08/01/18 08:14; Admin Dose 5,000 UNIT; Start 07/29/18 at 21:00 Diagnostic Test (Pha) (Accu-Chek) 1 ea 02 XX Last administered on 07/30/18 01:52; Admin Dose 1 EA; Start 07/30/18 at 02:00 Insulin Aspart (Novolog Insulin Pen) NOVOLOG *MILD* ALGORITHM WITH MEALS BEDTIME SC Last administered on 08/01/18at 11:45; Admin Dose 1 UNIT; Start 07/29/18 at 21:00 Heparin Sodium (Porcine) (Heparin (1000 Units/ml)) 3,300 unit AFTER DIALYSIS CATHETER Last administered on 07/31/18at 21:12; Admin Dose 3,300 UNIT; Start 07/29/18 at 16:30 Miscellaneous Information 1 ea NOTE XX ; Start 07/29/18 at 18:00 Glucose (Glutose) 15 gm Q15M PRN PO DECREASED GLUCOSE; Start 07/29/18 at 18:00 Glucose (Glutose) 22.5 gm Q15M PRN PO DECREASED GLUCOSE; Start 07/29/18 at 18:00 Dextrose (D50w Syringe) 25 ml Q15M PRN IV DECREASED GLUCOSE; Start 07/29/18 at 18:00 Dextrose (D50w Syringe) 50 ml Q15M PRN IV DECREASED GLUCOSE; Start 07/29/18 at 18:00 Glucagon (Glucagen) 1 mg Q15M PRN IM DECREASED GLUCOSE; Start 07/29/18 at 18:00 Glucose (Glutose) 15 gm Q15M PRN BUCCAL DECREASED GLUCOSE; Start 07/29/18 at 18:00 Allergies: Coded Allergies: benazepril (Verified Allergy, Unknown, 07/29/18) Past Surgical History Past Surgical Hx: appendectomy, cholecystectomy Social History Smoking Status: Former smoker Exam/Review of Systems Exam Vitals Vital Signs Date Temp Pulse Resp B/P (MAP) Pulse Ox O2 O2 Flow FiO2 Time Delivery Rate 08/01/18 85 16:00 08/01/18 97.4 20 178/96 98 Room Air 15:07 (123) 07/29/18 21 07:36 Intake and Output 07/31/18 07/31/18 08/01/18 1515:00 23:00 07:00 IntakeIntake Total 1000 ml 830 ml 480 ml OutputOutput Total 3200 ml 2800 ml BalanceBalance 1000 ml -2370 ml -2320 ml Constitutional: alert Psych: no complaints, nl mood/affect Head: normocephalic, atraumatic Eyes: nl conjunctiva, EOMI, nl lids, nl sclera, PERRL Respiratory: clear to auscultation, normal air movement Gastrointestinal: soft, nl liver, spleen, tender (diffusely tender) Results Result Diagram: 07/30/18 0501 08/01/18 0453 Results 24hrs Laboratory Tests Test 07/31/18 17:10 07/31/18 21:26 08/01/18 01:17 08/01/18 04:53 Bedside Glucose 136 191 275 H Sodium Level 137 Potassium Level 4.9 Chloride Level 98 Carbon Dioxide Level 28 Anion Gap 11 Blood Urea Nitrogen 41 #H Creatinine 8.26 #H Est Glomerular Filtrat 7 L Rate mL/min Glucose Level 184 Calcium Level 8.1 L Amylase Level 87 Lipase 171 Test 08/01/18 07:54 08/01/18 11:38 Bedside Glucose 208 161 Medications Medication Current Medications Hydralazine HCl (Apresoline) 10 mg Q4 PRN IV BLOOD PRESSURE Last administered on 07/30/18at 00:22; Admin Dose 10 MG; Start 07/29/18 at 10:30 Aspirin (Aspirin) 81 mg DAILY PO Last administered on 08/01/18 08:06; Admin Dose 81 MG; Start 07/29/18 at 10:30 Atorvastatin Calcium (Lipitor) 40 mg HS PO Last administered on 07/31/18 21:17; Admin Dose 40 MG; Start 07/29/18 at 21:00 Calcium Acetate (Phoslo) 2,001 mg WITH MEALS PO ; Start 07/29/18 at 12:00 Carvedilol (Coreg) 12.5 mg BID PO Last administered on 08/01/18at 08:07; Admin Dose 12.5 MG; Start 07/29/18 at 10:30 Ergocalciferol (Drisdol) 50,000 unit Q7D PO Last administered on 07/29/18at 10:57; Admin Dose 50,000 UNIT; Start 07/29/18 at 10:30 Escitalopram Oxalate (Lexapro) 10 mg DAILY PO Last administered on 08/01/18 08 :07; Admin Dose 10 MG; Start 07/30/18 at 09:00 Famotidine (Pepcid) 20 mg DAILY PO Last administered on 08/01/18 08:07; Admin Dose 20 MG; Start 07/30/18 at 09:00 Gabapentin (Neurontin) 300 mg QHS PO Last administered on 07/31/18 21:17; Admin Dose 300 MG; Start 07/29/18 at 21:00 Nifedipine (Procardia Xl) 60 mg DAILY PO Last administered on 08/01/18 08:07; Admin Dose 60 MG; Start 07/29/18 at 10:30 Hydromorphone HCl (Dilaudid) 1 mg Q3H PRN IV PAIN Last administered on 08/01/18 14:31; Admin Dose 1 MG; Start 07/29/18 at 15:00 IV Flush (NS 3 ml) 3 ml PER PROTOCOL IV ; Start 07/29/18 at 16:00 Ondansetron HCl (Zofran Inj) 4 mg Q6H PRN IV NAUSEA/VOMITING Last administered on 07/30/18 08:14; Admin Dose 4 MG; Start 07/29/18 at 16:00 Acetaminophen/ Hydrocodone Bitart ([place]mo (5/325)) 1 tab Q6H PRN PO .MOD PAIN 4- 6 Last administered on 07/30/18 08:14; Admin Dose 1 TAB; Start 07/29/18 at 16:00 Magnesium Hydroxide (Milk Of Mag) 30 ml DAILY PRN PO .CONSTIPATION; Start 07/29/18 at 16:00 Heparin Sodium (Porcine) (Heparin (5000 Units/1ml)) 5,000 unit Q12 SC Last administered on 08/01/18 08:14; Admin Dose 5,000 UNIT; Start 07/29/18 at 21:00 Diagnostic Test (Pha) (Accu-Chek) 1 ea 02 XX Last administered on 07/30/18 01:52; Admin Dose 1 EA; Start 07/30/18 at 02:00 Insulin Aspart (Novolog Insulin Pen) NOVOLOG *MILD* ALGORITHM WITH MEALS BEDTIME SC Last administered on 08/01/18 11:45; Admin Dose 1 UNIT; Start 07/29/18 at 21:00 Heparin Sodium (Porcine) (Heparin (1000 Units/ml)) 3,300 unit AFTER DIALYSIS CATHETER Last administered on 07/31/18 21:12; Admin Dose 3,300 UNIT; Start 07/29/18 at 16:30 Miscellaneous Information 1 ea NOTE XX ; Start 07/29/18 at 18:00 Glucose (Glutose) 15 gm Q15M PRN PO DECREASED GLUCOSE; Start 07/29/18 at 18:00 Glucose (Glutose) 22.5 gm Q15M PRN PO DECREASED GLUCOSE; Start 07/29/18 at 18:00 Dextrose (D50w Syringe) 25 ml Q15M PRN IV DECREASED GLUCOSE; Start 07/29/18 at 18:00 Dextrose (D50w Syringe) 50 ml Q15M PRN IV DECREASED GLUCOSE; Start 07/29/18 at 18:00 Glucagon (Glucagen) 1 mg Q15M PRN IM DECREASED GLUCOSE; Start 07/29/18 at 18:00 Glucose (Glutose) 15 gm Q15M PRN BUCCAL DECREASED GLUCOSE; Start 07/29/18 at 18:00 PRASANTH ZHAO August 01, 2018 16:26
--- NOTE | 2018-08-01 16:47 | PN ---
Date/Time of Note Date/Time of Note DATE: 08/01/18 TIME: 16:45 Assessment/Plan VTE Prophylaxis Risk score (from Nsg)>0 risk: 1 SCD applied (from Ns): No SCD contraindicated: low risk/ambulating Pharmacological prophylaxis: NA/contraindicated Pharm contraindication: low risk/ambulating Lines/Catheters IV Catheter Type (from Nrs): PERMACATH Assessment/Plan Hospital Course his is a 32-year-old male with: 1. Recurrent left upper quadrant pain radiating to the chest. Patient had an extensive workup done in the past. The patient also had elevated troponins. H ad a CT angio of the chest which showed 50% of the disease, nothing to be done by cardiology. The patient had CT of the chest which was negative for any pulmonary embolism. Patient also had a CT of the T and the L spine, which essentially showed some mild disease. The only thing the patient had some mild elevated lipase. Patient is status post cholecystectomy.? trauma due to insulin injection 3. Diabetes. 4. Hyperkalemia. 5. Hypertensive urgency, likely noncompliant with medications. 6. Diabetes with complication of diabetes, nephropathy, retinopathy. 7. End-stage renal disease on hemodialysis. 8. History of cholecystectomy. 9. Status post esophagogastroduodenoscopy with gastroparesis. PLAN - CT a+p findings discussed with Dr Chua radiology per him could be due to injection of lovenox/insulin in LUQ, when confronted with pt he said that he does use insulin there but says he is not stupid to have caused injury due to that, also dr Camara> who recommended Abd US - hd tmw - pain control - fu GI/Cardiac recs - HD today - add lantus and mealtime insulin, pt was instructed to be compliant with diet - CW PPI - cw lasix/losartan/nifedipine Result Diagram: 07/30/18 0501 08/01/18 0453 Results 24hrs Laboratory Tests Test 07/31/18 17:10 07/31/18 21:26 08/01/18 01:17 08/01/18 04:53 Bedside Glucose 136 191 275 H Sodium Level 137 Potassium Level 4.9 Chloride Level 98 Carbon Dioxide Level 28 Anion Gap 11 Blood Urea Nitrogen 41 #H Creatinine 8.26 #H Est Glomerular Filtrat 7 L Rate mL/min Glucose Level 184 Calcium Level 8.1 L Amylase Level 87 Lipase 171 Test 08/01/18 07:54 08/01/18 11:38 Bedside Glucose 208 161 Subjective 24 Hr Interval Summary Free Text/Dictation Pt uncoperative, eats what he wants to Exam/Review of Systems Exam Vitals Vital Signs Date Temp Pulse Resp B/P (MAP) Pulse Ox O2 O2 Flow FiO2 Time Delivery Rate 08/01/18 85 16:00 08/01/18 97.4 20 178/96 98 Room Air 15:07 (123) 07/29/18 21 07:36 Intake and Output 07/31/18 07/31/18 08/01/18 1515:00 23:00 07:00 IntakeIntake Total 1000 ml 830 ml 480 ml OutputOutput Total 3200 ml 2800 ml BalanceBalance 1000 ml -2370 ml -2320 ml Exam GENERAL: Patient is awake, alert, oriented, does not appear to be in mild distress secondary to pain. HEENT: Pupils equal, round, react to light. NECK: Supple. No JVD. HEART: Regular rate and rhythm. LUNGS: Clear to auscultation bilaterally. ABDOMEN: Some tenderness present in the left upper quadrant. EXTREMITIES: 1 to 2+ edema. The patient has a right chest Perm-A-Cath. Results Results 24hrs Laboratory Tests Test 07/31/18 17:10 07/31/18 21:26 08/01/18 01:17 08/01/18 04:53 Bedside Glucose 136 191 275 H Sodium Level 137 Potassium Level 4.9 Chloride Level 98 Carbon Dioxide Level 28 Anion Gap 11 Blood Urea Nitrogen 41 #H Creatinine 8.26 #H Est Glomerular Filtrat 7 L Rate mL/min Glucose Level 184 Calcium Level 8.1 L Amylase Level 87 Lipase 171 Test 08/01/18 07:54 08/01/18 11:38 Bedside Glucose 208 161 Medications Medication Current Medications Hydralazine HCl (Apresoline) 10 mg Q4 PRN IV BLOOD PRESSURE Last administered on 07/30/18at 00:22; Admin Dose 10 MG; Start 07/29/18 at 10:30 Aspirin (Aspirin) 81 mg DAILY PO Last administered on 08/01/18at 08:06; Admin Dose 81 MG; Start 07/29/18 at 10:30 Atorvastatin Calcium (Lipitor) 40 mg HS PO Last administered on 07/31/18at 21:17; Admin Dose 40 MG; Start 07/29/18 at 21:00 Calcium Acetate (Phoslo) 2,001 mg WITH MEALS PO ; Start 07/29/18 at 12:00 Carvedilol (Coreg) 12.5 mg BID PO Last administered on 08/01/18 08:07; Admin Dose 12.5 MG; Start 07/29/18 at 10:30 Ergocalciferol (Drisdol) 50,000 unit Q7D PO Last administered on 07/29/18 10:57; Admin Dose 50,000 UNIT; Start 07/29/18 at 10:30 Escitalopram Oxalate (Lexapro) 10 mg DAILY PO Last administered on 08/01/18 08:07; Admin Dose 10 MG; Start 07/30/18 at 09:00 Famotidine (Pepcid) 20 mg DAILY PO Last administered on 08/01/18 08:07; Admin Dose 20 MG; Start 07/30/18 at 09:00 Gabapentin (Neurontin) 300 mg QHS PO Last administered on 07/31/18 21:17; Admin Dose 300 MG; Start 07/29/18 at 21:00 Nifedipine (Procardia Xl) 60 mg DAILY PO Last administered on 08/01/18 08:07; Admin Dose 60 MG; Start 07/29/18 at 10:30 Hydromorphone HCl (Dilaudid) 1 mg Q3H PRN IV PAIN Last administered on 08/01/18 14:31; Admin Dose 1 MG; Start 07/29/18 at 15:00 IV Flush (NS 3 ml) 3 ml PER PROTOCOL IV ; Start 07/29/18 at 16:00 Ondansetron HCl (Zofran Inj) 4 mg Q6H PRN IV NAUSEA/VOMITING Last administered on 07/30/18 08:14; Admin Dose 4 MG; Start 07/29/18 at 16:00 Acetaminophen/ Hydrocodone Bitart ([place] (5/325)) 1 tab Q6H PRN PO .MOD PAIN 4- 6 Last administered on 07/30/18 08:14; Admin Dose 1 TAB; Start 07/29/18 at 16:00 Magnesium Hydroxide (Milk Of Mag) 30 ml DAILY PRN PO .CONSTIPATION; Start 07/29/18 at 16:00 Heparin Sodium (Porcine) (Heparin (5000 Units/1ml)) 5,000 unit Q12 SC Last administered on 08/01/18at 08:14; Admin Dose 5,000 UNIT; Start 07/29/18 at 21:00 Diagnostic Test (Pha) (Accu-Chek) 1 ea 02 XX Last administered on 07/30/18at 01:52; Admin Dose 1 EA; Start 07/30/18 at 02:00 Insulin Aspart (Novolog Insulin Pen) NOVOLOG *MILD* ALGORITHM WITH MEALS BEDTIME SC Last administered on 08/01/18at 11:45; Admin Dose 1 UNIT; Start 07/29/18 at 21:00 Heparin Sodium (Porcine) (Heparin (1000 Units/ml)) 3,300 unit AFTER DIALYSIS CATHETER Last administered on 07/31/18at 21:12; Admin Dose 3,300 UNIT; Start 07/29/18 at 16:30 Miscellaneous Information 1 ea NOTE XX ; Start 07/29/18 at 18:00 Glucose (Glutose) 15 gm Q15M PRN PO DECREASED GLUCOSE; Start 07/29/18 at 18:00 Glucose (Glutose) 22.5 gm Q15M PRN PO DECREASED GLUCOSE; Start 07/29/18 at 18:00 Dextrose (D50w Syringe) 25 ml Q15M PRN IV DECREASED GLUCOSE; Start 07/29/18 at 18:00 Dextrose (D50w Syringe) 50 ml Q15M PRN IV DECREASED GLUCOSE; Start 07/29/18 at 18:00 Glucagon (Glucagen) 1 mg Q15M PRN IM DECREASED GLUCOSE; Start 07/29/18 at 18:00 Glucose (Glutose) 15 gm Q15M PRN BUCCAL DECREASED GLUCOSE; Start 07/29/18 at 18:00 Insulin Glargine (Lantus) 15 units DAILY@2000 SC ; Start 08/01/18 at 20:00; Status MIKE HSU MD August 01, 2018 16:47
[2018-08-01] MEDS ORDERED: HEPARIN 1000 UNITS/ML 10 ML INJ CATHETER SCH (17:00)
[2018-08-01] MEDS: ATORVASTATIN 40 MG TAB PO SCH (20:00)
[2018-08-01] MEDS ORDERED: INSULIN GLARGINE [LANTus] (100 UNITS/ML) SYG SC SCH (20:00)
[2018-08-01] MEDS: GABAPENTIN 300 MG CAP PO SCH (20:01)
[2018-08-02] VITALS (23 sets, daily range): BP systolic 111–165; BP diastolic 72–99; PULSE 72–88; RESP 16–20
[2018-08-02] MEDS: HYDROmorphONE 1 MG/ML SYG IV PRN ×4 (00:06→12:06)
[2018-08-02] MEDS: ACCU-CHEK XX SCH (02:00)
[2018-08-02] MEDS: INSULIN ASPART [NOVOLOG] 3 ML PEN SC SCH ×4 (08:09→12:09)
[2018-08-02] MEDS: CALCIUM ACETATE 667 MG CAP PO SCH ×2 (08:26→12:05)
[2018-08-02] MEDS: ESCITALOPRAM 10 MG TAB PO SCH (08:26)
[2018-08-02] MEDS: ASPIRIN 81 MG TAB PO SCH (08:26)
[2018-08-02] MEDS: FAMOTIDINE 20 MG TAB PO SCH (08:27)
[2018-08-02] MEDS: NIFEdipine (XL) 60 MG TAB PO SCH (08:27)
[2018-08-02] MEDS: HEPARIN 5,000 UNIT/1 ML VIAL SC SCH (08:45)
[2018-08-02] MEDS: HEPARIN 1000 UNITS/ML 10 ML INJ CATHETER SCH (13:29)
--- NOTE | 2018-08-02 15:10 | PN ---
Date/Time of Note Date/Time of Note DATE: 08/02/18 TIME: 15:08 Assessment/Plan VTE Prophylaxis Risk score (from Nsg)>0 risk: 1 SCD applied (from Ns): No SCD contraindicated: other Pharmacological prophylaxis: heparin Lines/Catheters IV Catheter Type (from Nrs): permacath Assessment/Plan Hospital Course 1. Recurrent left upper quadrant pain radiating to the chest. Patient had an extensive workup done in the past. The patient also had elevated troponins. Had a CT angio of the chest which showed 50% of the disease, nothing to be done by cardiology. The patient had CT of the chest which was negative for any pulmonary embolism. Patient also had a CT of the T and the L spine, which essentially showed some mild disease. The only thing the patient had some mild elevated lipase. Patient is status post cholecystectomy.? trauma due to insulin injection 3. Diabetes. 4. Hyperkalemia. 5. Hypertensive urgency, likely noncompliant with medications. 6. Diabetes with complication of diabetes, nephropathy, retinopathy. 7. End-stage renal disease on hemodialysis. 8. History of cholecystectomy. 9. Status post esophagogastroduodenoscopy with gastroparesis. 10. Overweight Assessment/Plan - CT a+p findings discussed with Dr Chua radiology per him could be due to injection of lovenox/insulin in LUQ, when confronted with pt he said that he does use insulin there but says he is not stupid to have caused injury due to that, also dr Camara - who recommended Abd US negative - hd today - pain control _DVT proph. Heparin BID -GI proph. FAmotidine PO - fu GI/Cardiac recs - c/w lantus and mealtime insulin, pt was instructed to be compliant with diet - CW PPI - cw lasix/losartan/nifedipine Result Diagram: 07/30/18 0501 08/02/18 0512 Results 24hrs Laboratory Tests Test 08/01/18 17:17 08/01/18 19:47 08/02/18 02:10 08/02/18 05:12 Bedside Glucose 207 195 207 Sodium Level 137 Potassium Level 5.0 Chloride Level 97 Carbon Dioxide Level 26 Anion Gap 14 H Blood Urea Nitrogen 53 H Creatinine 10.71 #H Est Glomerular Filtrat 6 L Rate mL/min Glucose Level 182 Calcium Level 8.5 Test 08/02/18 08:03 08/02/18 12:00 Bedside Glucose 153 185 Subjective 24 Hr Interval Summary Free Text/Dictation asked to be discharged Gastrointestinal: pain (left under the rib cage ) Exam/Review of Systems Exam Vitals Vital Signs Date Temp Pulse Resp B/P (MAP) Pulse Ox O2 O2 Flow FiO2 Time Delivery Rate 08/02/18 72 16 125/78 99 Room Air 13:43 (94) 08/02/18 98.3 11:15 07/29/18 21 07:36 Intake and Output 08/01/18 08/01/18 08/02/18 1515:00 23:00 07:00 IntakeIntake Total 120 ml 960 ml 240 ml BalanceBalance 120 ml 960 ml 240 ml Exam right chest Permcath Eyes: nl conjunctiva Neck: supple Cardiovascular: regular rate and rhythm Gastrointestinal: soft Results Results 24hrs Laboratory Tests Test 08/01/18 17:17 08/01/18 19:47 08/02/18 02:10 08/02/18 05:12 Bedside Glucose 207 195 207 Sodium Level 137 Potassium Level 5.0 Chloride Level 97 Carbon Dioxide Level 26 Anion Gap 14 H Blood Urea Nitrogen 53 H Creatinine 10.71 #H Est Glomerular Filtrat 6 L Rate mL/min Glucose Level 182 Calcium Level 8.5 Test 08/02/18 08:03 08/02/18 12:00 Bedside Glucose 153 185 Medications Medication Current Medications Hydralazine HCl (Apresoline) 10 mg Q4 PRN IV BLOOD PRESSURE Last administered on 07/30/18 00:22; Admin Dose 10 MG; Start 07/29/18 at 10:30 Aspirin (Aspirin) 81 mg DAILY PO Last administered on 08/02/18 08:26; Admin Dose 81 MG; Start 07/29/18 at 10:30 Atorvastatin Calcium (Lipitor) 40 mg HS PO Last administered on 08/01/18 20:00; Admin Dose 40 MG; Start 07/29/18 at 21:00 Calcium Acetate (Phoslo) 2,001 mg WITH MEALS PO Last administered on 08/02/18 12:05; Admin Dose 2,001 MG; Start 07/29/18 at 12:00 Carvedilol (Coreg) 12.5 mg BID PO Last administered on 08/02/18 08:27; Admin Dose 12.5 MG; Start 07/29/18 at 10:30 Ergocalciferol (Drisdol) 50,000 unit Q7D PO Last administered on 07/29/18 10:57; Admin Dose 50,000 UNIT; Start 07/29/18 at 10:30 Escitalopram Oxalate (Lexapro) 10 mg DAILY PO Last administered on 08/02/18 08:26; Admin Dose 10 MG; Start 07/30/18 at 09:00 Famotidine (Pepcid) 20 mg DAILY PO Last administered on 08/02/18 08:27; Admin Dose 20 MG; Start 07/30/18 at 09:00 Gabapentin (Neurontin) 300 mg QHS PO Last administered on 08/01/18 20:01; Admin Dose 300 MG; Start 07/29/18 at 21:00 Nifedipine (Procardia Xl) 60 mg DAILY PO Last administered on 08/02/18 08:27; Admin Dose 60 MG; Start 07/29/18 at 10:30 Hydromorphone HCl (Dilaudid) 1 mg Q3H PRN IV PAIN Last administered on 08/02/18 12:06; Admin Dose 1 MG; Start 07/29/18 at 15:00 IV Flush (NS 3 ml) 3 ml PER PROTOCOL IV ; Start 07/29/18 at 16:00 Ondansetron HCl (Zofran Inj) 4 mg Q6H PRN IV NAUSEA/VOMITING Last administered on 07/30/18 08:14; Admin Dose 4 MG; Start 07/29/18 at 16:00 Acetaminophen/ Hydrocodone Bitart ([place] (5/325)) 1 tab Q6H PRN PO .MOD PAIN 4- 6 Last administered on 07/30/18 08:14; Admin Dose 1 TAB; Start 07/29/18 at 16:00 Magnesium Hydroxide (Milk Of Mag) 30 ml DAILY PRN PO .CONSTIPATION; Start 07/29/18 at 16:00 Heparin Sodium (Porcine) (Heparin (5000 Units/1ml)) 5,000 unit Q12 SC Last administered on 08/02/18 08:45; Admin Dose 5,000 UNIT; Start 07/29/18 at 21:00 Diagnostic Test (Pha) (Accu-Chek) 1 ea 02 XX Last administered on 07/30/18 01 :52; Admin Dose 1 EA; Start 07/30/18 at 02:00 Insulin Aspart (Novolog Insulin Pen) NOVOLOG *MILD* ALGORITHM WITH MEALS BEDTIME SC Last administered on 08/02/18 12:09; Admin Dose 2 UNIT; Start 07/29/18 at 21:00 Heparin Sodium (Porcine) (Heparin (1000 Units/ml)) 3,300 unit AFTER DIALYSIS CATHETER Last administered on 08/02/18at 13:29; Admin Dose 3,300 UNIT; Start 07/29/18 at 16:30 Miscellaneous Information 1 ea NOTE XX ; Start 07/29/18 at 18:00 Glucose (Glutose) 15 gm Q15M PRN PO DECREASED GLUCOSE; Start 07/29/18 at 18:00 Glucose (Glutose) 22.5 gm Q15M PRN PO DECREASED GLUCOSE; Start 07/29/18 at 18:00 Dextrose (D50w Syringe) 25 ml Q15M PRN IV DECREASED GLUCOSE; Start 07/29/18 at 18:00 Dextrose (D50w Syringe) 50 ml Q15M PRN IV DECREASED GLUCOSE; Start 07/29/18 at 18:00 Glucagon (Glucagen) 1 mg Q15M PRN IM DECREASED GLUCOSE; Start 07/29/18 at 18:00 Glucose (Glutose) 15 gm Q15M PRN BUCCAL DECREASED GLUCOSE; Start 07/29/18 at 18:00 Insulin Glargine (Lantus) 15 units DAILY@2000 SC Last administered on 08/01/18at 20:43; Admin Dose 15 UNITS; Start 08/01/18 at 20:00 Insulin Aspart (Novolog Insulin Pen) 3 unit WITH MEALS SC Last administered on 08/02/18at 12:09; Admin Dose 3 UNIT; Start 08/01/18 at 18:00 Heparin Sodium (Porcine) (Heparin (1000 Units/ml)) 4,000 unit AFTER DIALYSIS CATHETER ; Start 08/01/18 at 17:00 CALLY PERKINS August 02, 2018 15:10
--- NOTE | 2018-08-02 15:40 | PDOCDIS ---
Discharge Instructions DIAGNOSIS Discharge Diagnosis abd. pain CONDITION [id number] Patient Condition: [id number] Stable HOME CARE INSTRUCTIONS: [id number] Diet Instructions: [id number] Rest between Activity Avoid heavy lifting FOLLOW UP/APPOINTMENTS Follow-up Plan c/w HD centers as scheduled SCHOOL/WORK RELEASE May return to School/Work with: No Restrictions CALLY PERKINS August 02, 2018 15:40
--- NOTE | 2018-08-02 15:42 | DS ---
Date/Time of Note Date/Time of Note DATE: 08/02/18 TIME: 15:41 Discharge Summary Admission/Discharge Info Admit Date/Time Jul 29, 2018 at 07:26 Discharge Date/Time Discharge Diagnosis abd. pain Patient Condition: Stable Consults Dr Duong, GI, Dr Dailey, oncology, [facility], cardiology Hospital Course A 32-year-old male with a past medical history of end-stage renal disease on hemodialysis, diabetes, hypertension, hyperlipidemia, chronic opioid use, p resented to the emergency department complaining of left-sided upper quadrant pain. Patient was recently admitted from 07/15/2018 to 07/24/2018. At that time, the patient had a full workup done, had an echocardiogram that showed EF of 50% to 55%. The patient had elevated troponin. Patient had a cardiac CT that showed noncalcified plaques in the distal segment of the vessel producing 30% stenosis. No evidence of pulmonary emboli, no airspace infiltrates or pulmonary nodules or pulmonary emboli. The patient was seen by GI. The patient had EGD that showed severe gastroparesis. Was started on Zofran, Pepsin, and also had a CT of the thoracic and lumbar spine that shows some multilevel broad based bulges, multilevel neural foraminal stenosis. Patient was feeling better and was discharged home. The patient went for dialysis session today all of a sudden he started having pain in the left upper quadrant going to the chest and the patient could not get the dialysis. On admission, blood pressure 237/134, afebrile, heart rate 97, respirations 19. Labs showed potassium of 6.1, BUN of 74, creatinine 11.6. Lipase 477. Troponin less than 0.012. EKG did not show any acute ST or T wave changes. The patient was admitted for further management. Ds: 1. Recurrent left upper quadrant pain radiating to the chest. Patient had an extensive workup done in the past. The patient also had elevated troponins. Had a CT angio of the chest which showed 50% of the disease, nothing to be done by cardiology. The patient had CT of the chest which was negative for any pulmonary embolism. Patient also had a CT of the T and the L spine, which essentially showed some mild disease. The only thing the patient had some mild elevated lipase. Patient is status post cholecystectomy.? trauma due to insulin injection 3. Diabetes. 4. Hyperkalemia. 5. Hypertensive urgency, likely noncompliant with medications. 6. Diabetes with complication of diabetes, nephropathy, retinopathy. 7. End-stage renal disease on hemodialysis. 8. History of cholecystectomy. 9. Status post esophagogastroduodenoscopy with gastroparesis. 10. Overweight- Patient symptoms wer sharp abdomen, back and chest discomfort which radiates to his groin to the left. Symptoms are positional and with deep inspiration. During hospitalization pt was on telemetry service. Cardiology consult Dr Martinez recommended CT coronary angiogram. It was performed 07/16/2018 , found moderate coronary artery disease in LAD, nonobstructive. There were serial cardiac enzymes, they remain negative. ECG had with no significant ischemic abnormalities. Dr martinez reported that symptoms do not appear cardiac in origin at the current time. He recommended continue statin therapy, beta-luis f, and have better blood pressure control. Pt had under hypoglycemic control and low fat diet. His pain was controlled with medications. Pt had scheduled fluid management via hemodialysis TIW. Dr Duong managed abdominal pain with reglan, he recommended ERCP at some point. EGD was performed and gastroparesis was found. CT scan abdomen was negative, except small nodules in lower abdomen. Dr Camara oncology was called after new findings on CT scan of multiple small subcutaneous nodules involving the anterior lower abdominal wall. However there is now a localized area of irregular air in the anterior subcutaneous left lower abdominal wall with an adjacent approximately 3 x 1.5 cm soft tissue mass of uncertain etiology and may represent a hematoma and wound". Later US showed benign appearance of nodules after lovenox or insulin injection. Prior to discharge pt had HD and still reported left side upper abdominal pain. Symptoms have been improving but still present. pt demonstrated elements of opiod dependence. Home Meds Active Scripts Hydrocodone Bit-Acetaminophen (Hydrocodone Bit-APAP) 5-325MG Tablet, 1 TAB PO Q6H PRN for .MOD PAIN 4-6 for 14 Days, TAB Prov:MIKE GIFFORD MD 07/24/18 Carvedilol* (Coreg*) 12.5 Mg Tablet, 12.5 MG PO BID for 30 Days, #60 TAB Prov:MIKE GIFFORD MD 07/24/18 Famotidine* (Famotidine*) 20 Mg Tablet, 20 MG PO DAILY for 30 Days, TAB Prov:MIKE GIFFORD MD 07/24/18 Polyethylene Glycol* (Miralax*) 17 Gm Powd.pack, 17 GM PO DAILY for 10 Days Prov:MIKE GIFFORD MD 07/24/18 Aspirin (Aspirin) 81 Mg Chew, 81 MG PO DAILY for 30 Days, TAB Prov:MIKE GIFFORD MD 07/24/18 Nifedipine (Procardia Xl) 60 Mg Tab.er.24, 60 MG PO DAILY for 30 Days, TAB Prov:MIKE GIFFORD MD 07/24/18 Isosorbide Mononitrate* (Isosorbide Mononitrate*) 30 Mg Tab.er.24h, 30 MG PO DAILY for 30 Days Prov:MIKE GIFFORD MD 07/24/18 Atorvastatin* (Atorvastatin*) 40 Mg Tablet, 40 MG PO HS for 30 Days, TAB Prov:MIKE GIFFORD MD 07/24/18 Escitalopram Oxalate* (Escitalopram Oxalate*) 10 Mg Tablet, 10 MG PO DAILY for 30 Days, #30 TAB Prov:MIKE GIFFORD MD 07/24/18 Gabapentin* (Gabapentin*) 300 Mg Capsule, 300 MG PO QHS for 30 Days, #60 CAP Prov:MIKE GIFFORD MD 07/24/18 Furosemide* (Furosemide*) 40 Mg Tablet, 40 MG PO BID for 30 Days, TAB Prov:MIKE GIFFORD MD 07/24/18 Calcium Acetate* (Calcium Acetate*) 667 Mg Capsule, 2001 MG PO WITH MEALS for 28 Days, #30 CAP Prov:MIKE GIFFORD MD 07/24/18 Reported Medications Ergocalciferol (Vitamin D2) (VITAMIN D2) 50,000 Unit Capsule, 69372 UNIT PO Q7D, CAP 07/10/18 Follow-up Plan c/w HD centers as scheduled Primary Care Provider Not On Staff Doctor Time spent on discharge: < 30 minutes Pending Labs Laboratory Tests Test 08/01/18 17:17 08/01/18 19:47 08/02/18 02:10 08/02/18 05:12 Bedside 207 195 207 Glucose mg/dL (70-220) mg/dL (70-220) mg/dL (70-220) Sodium Level 137 mmol/L (135-14 4) Potassium 5.0 Level mmol/L (3.5-5. 1) Chloride Level 97 mmol/L (97-110 ) Carbon Dioxide 26 Level mmol/L (21-31) Anion Gap 14 (5-13) Blood Urea 53 Nitrogen mg/dl (7-20) Creatinine 10.71 mg/dl (0.61-1. 24) Est Glomerular 6 mL/min (>60) Filtrat Rate mL/min Glucose Level 182 mg/dl (70-220) Calcium Level 8.5 mg/dl (8.4-10. 2) Test 08/02/18 08:03 08/02/18 12:00 Bedside 153 185 Glucose mg/dL (70-220) mg/dL (70-220) CALLY PERKINS August 02, 2018 15:42
--- NOTE | 2018-08-02 15:47 | CONS ---
Assessment/Plan Assessment/Plan Assessment/Plan (Daily) IMPRESSION: 1. Persistent left upper quadrant pain, etiology is unclear at this point. 2. Diabetes mellitus. 3. Marijuana usage. 4. Hypertension. 5. Renal failure. 6. Status post cholecystectomy. 7. Gastroparesis. 8. Soft tissue mass in the abdominal wall secondary to the injection insulin Plan Patient is very uncooperative We will monitor amylase lipase all within normal limit Continue present car Pain management Patient declined a colonoscopy Consultation Date/Type/Reason Admit Date/Time Jul 29, 2018 at 07:26 Initial Consult Date Date/Time of Note DATE: 08/02/18 TIME: 15:47 24 HR Interval Summary Free Text/Dictation Patient complains of left upper quadrant pain Exam/Review of Systems Exam Vitals Vital Signs Date Temp Pulse Resp B/P (MAP) Pulse Ox O2 O2 Flow FiO2 Time Delivery Rate 08/02/18 98.3 77 20 160/88 100 15:27 (112) 08/02/18 Room Air 13:43 07/29/18 21 07:36 Intake and Output 08/01/18 08/01/18 08/02/18 1515:00 23:00 07:00 IntakeIntake Total 120 ml 960 ml 240 ml BalanceBalance 120 ml 960 ml 240 ml Constitutional: alert, oriented, well developed Psych: no complaints, nl mood/affect Head: normocephalic, atraumatic Eyes: nl conjunctiva, EOMI, nl lids, nl sclera, PERRL ENMT: nl external ears & nose, nl lips & teeth, nl nasal mucosa & septum Neck: supple, non-tender Respiratory: clear to auscultation, normal air movement Cardiovascular: regular rate and rhythm, nl pulses Gastrointestinal: soft, nl liver, spleen, non-tender Musculoskeletal: nl extremities to inspection, nl gait and stance Extremities: normal pulses Neurological: KENNEL [employer] II-XII intact, nl mental status, nl speech, nl strength Skin: nl turgor; No rash or lesions Lymph: nl lymph nodes Results Result Diagram: 07/30/18 0501 08/02/18 0512 Results 24hrs Laboratory Tests Test 08/01/18 17:17 08/01/18 19:47 08/02/18 02:10 08/02/18 05:12 Bedside Glucose 207 195 207 Sodium Level 137 Potassium Level 5.0 Chloride Level 97 Carbon Dioxide Level 26 Anion Gap 14 H Blood Urea Nitrogen 53 H Creatinine 10.71 #H Est Glomerular Filtrat 6 L Rate mL/min Glucose Level 182 Calcium Level 8.5 Test 08/02/18 08:03 08/02/18 12:00 Bedside Glucose 153 185 Medications Medication Current Medications Hydralazine HCl (Apresoline) 10 mg Q4 PRN IV BLOOD PRESSURE Last administered on 07/30/18 00:22; Admin Dose 10 MG; Start 07/29/18 at 10:30 Aspirin (Aspirin) 81 mg DAILY PO Last administered on 08/02/18 08:26; Admin Dose 81 MG; Start 07/29/18 at 10:30 Atorvastatin Calcium (Lipitor) 40 mg HS PO Last administered on 08/01/18 20:00; Admin Dose 40 MG; Start 07/29/18 at 21:00 Calcium Acetate (Phoslo) 2,001 mg WITH MEALS PO Last administered on 08/02/18 12:05; Admin Dose 2,001 MG; Start 07/29/18 at 12:00 Carvedilol (Coreg) 12.5 mg BID PO Last administered on 08/02/18 08:27; Admin Dose 12.5 MG; Start 07/29/18 at 10:30 Ergocalciferol (Drisdol) 50,000 unit Q7D PO Last administered on 07/29/18 10:57; Admin Dose 50,000 UNIT; Start 07/29/18 at 10:30 Escitalopram Oxalate (Lexapro) 10 mg DAILY PO Last administered on 08/02/18 08:26; Admin Dose 10 MG; Start 07/30/18 at 09:00 Famotidine (Pepcid) 20 mg DAILY PO Last administered on 08/02/18 08:27; Admin Dose 20 MG; Start 07/30/18 at 09:00 Gabapentin (Neurontin) 300 mg QHS PO Last administered on 08/01/18 20:01; Admin Dose 300 MG; Start 07/29/18 at 21:00 Nifedipine (Procardia Xl) 60 mg DAILY PO Last administered on 08/02/18 08:27; A dmin Dose 60 MG; Start 07/29/18 at 10:30 Hydromorphone HCl (Dilaudid) 1 mg Q3H PRN IV PAIN Last administered on 08/02/18 12:06; Admin Dose 1 MG; Start 07/29/18 at 15:00 IV Flush (NS 3 ml) 3 ml PER PROTOCOL IV ; Start 07/29/18 at 16:00 Ondansetron HCl (Zofran Inj) 4 mg Q6H PRN IV NAUSEA/VOMITING Last administered on 07/30/18 08:14; Admin Dose 4 MG; Start 07/29/18 at 16:00 Acetaminophen/ Hydrocodone Bitart ([place] (5/325)) 1 tab Q6H PRN PO .MOD PAIN 4- 6 Last administered on 07/30/18 08:14; Admin Dose 1 TAB; Start 07/29/18 at 16:00 Magnesium Hydroxide (Milk Of Mag) 30 ml DAILY PRN PO .CONSTIPATION; Start 07/29/18 at 16:00 Heparin Sodium (Porcine) (Heparin (5000 Units/1ml)) 5,000 unit Q12 SC Last administered on 08/02/18 08:45; Admin Dose 5,000 UNIT; Start 07/29/18 at 21:00 Diagnostic Test (Pha) (Accu-Chek) 1 ea 02 XX Last administered on 07/30/18 01:52; Admin Dose 1 EA; Start 07/30/18 at 02:00 Insulin Aspart (Novolog Insulin Pen) NOVOLOG *MILD* ALGORITHM WITH MEALS BEDTIME SC Last administered on 08/02/18 12:09; Admin Dose 2 UNIT; Start 07/29/18 at 21:00 Heparin Sodium (Porcine) (Heparin (1000 Units/ml)) 3,300 unit AFTER DIALYSIS CATHETER Last administered on 08/02/18 13:29; Admin Dose 3,300 UNIT; Start 07/29/18 at 16:30 Miscellaneous Information 1 ea NOTE XX ; Start 07/29/18 at 18:00 Glucose (Glutose) 15 gm Q15M PRN PO DECREASED GLUCOSE; Start 07/29/18 at 18:00 Glucose (Glutose) 22.5 gm Q15M PRN PO DECREASED GLUCOSE; Start 07/29/18 at 18:00 Dextrose (D50w Syringe) 25 ml Q15M PRN IV DECREASED GLUCOSE; Start 07/29/18 at 18:00 Dextrose (D50w Syringe) 50 ml Q15M PRN IV DECREASED GLUCOSE; Start 07/29/18 at 18:00 Glucagon (Glucagen) 1 mg Q15M PRN IM DECREASED GLUCOSE; Start 07/29/18 at 18:00 Glucose (Glutose) 15 gm Q15M PRN BUCCAL DECREASED GLUCOSE; Start 07/29/18 at 18:00 Insulin Glargine (Lantus) 15 units DAILY@2000 SC Last administered on 08/01/18at 20:43; Admin Dose 15 UNITS; Start 08/01/18 at 20:00 Insulin Aspart (Novolog Insulin Pen) 3 unit WITH MEALS SC Last administered on 08/02/18at 12:09; Admin Dose 3 UNIT; Start 08/01/18 at 18:00 Heparin Sodium (Porcine) (Heparin (1000 Units/ml)) 4,000 unit AFTER DIALYSIS CATHETER ; Start 08/01/18 at 17:00 MAXIMO KUHN MD August 02, 2018 15:47
--- NOTE | 2018-08-02 16:00 | CONS ---
Assessment/Plan Assessment/Plan Assessment/Plan (Daily) 32 yo with ESRD on HD admitted with chronic abdo pain who is found to have a small LUQ soft tissue mass felt to be injection related but unclear -recommend Abdo US - Unremarkable visualized soft tissues of the left abdomen. -if negative, would recommend serial evaluation with CT AP in about 3-4 mos -Dw Dr Umana -check -AFP- 2.7 (nl) - BHCG- > 2.4 - LDH- pending -consider check CT chest to evaluate for other areas of LAD or mass Consultation Date/Type/Reason Admit Date/Time Jul 29, 2018 at 07:26 Initial Consult Date Type of Consult ONCOLOGY Reason for Consultation LUQ soft tissue mass Date/Time of Note DATE: 08/02/18 TIME: 15:47 24 HR Interval Summary Free Text/Dictation HD today; afebrile Possible discharge today dw staff Detailed Summary Eyes: no complaints ENT: no complaints Respiratory: no complaints Cardiovascular: no complaints Gastrointestinal: pain, decreased appetite Genitourinary: no complaints Musculoskeletal: no complaints Skin: no complaints Neurologic: no complaints Endocrine: no complaints Lymphatic: no complaints Exam/Review of Systems Exam Vitals Vital Signs Date Temp Pulse Resp B/P (MAP) Pulse Ox O2 O2 Flow FiO2 Time Delivery Rate 08/02/18 98.3 77 20 160/88 100 15:27 (112) 08/02/18 Room Air 13:43 07/29/18 21 07:36 Intake and Output 08/01/18 08/01/18 08/02/18 1414:59 22:59 06:59 IntakeIntake Total 120 ml 960 ml 240 ml BalanceBalance 120 ml 960 ml 240 ml Constitutional: alert, well developed Psych: nl mood/affect Head: atraumatic Eyes: nl lids, nl sclera ENMT: nl external ears & nose Respiratory: clear to auscultation Cardiovascular: nl pulses, other (s1s2) Gastrointestinal: soft, non-tender Musculoskeletal: nl extremities to inspection Extremities: normal pulses Neurological: nl mental status, nl speech Skin: nl turgor Lymph: nontender Results Result Diagram: 07/30/18 0501 08/02/18 0512 Results 24hrs Laboratory Tests Test 08/01/18 17:17 08/01/18 19:47 08/02/18 02:10 08/02/18 05:12 Bedside Glucose 207 195 207 Sodium Level 137 Potassium Level 5.0 Chloride Level 97 Carbon Dioxide Level 26 Anion Gap 14 H Blood Urea Nitrogen 53 H Creatinine 10.71 #H Est Glomerular Filtrat 6 L Rate mL/min Glucose Level 182 Calcium Level 8.5 Test 08/02/18 08:03 08/02/18 12:00 Bedside Glucose 153 185 Medications Medication Current Medications Hydralazine HCl (Apresoline) 10 mg Q4 PRN IV BLOOD PRESSURE Last administered on 07/30/18 00:22; Admin Dose 10 MG; Start 07/29/18 at 10:30 Aspirin (Aspirin) 81 mg DAILY PO Last administered on 08/02/18 08:26; Admin Dose 81 MG; Start 07/29/18 at 10:30 Atorvastatin Calcium (Lipitor) 40 mg HS PO Last administered on 08/01/18 20:00; Admin Dose 40 MG; Start 07/29/18 at 21:00 Calcium Acetate (Phoslo) 2,001 mg WITH MEALS PO Last administered on 08/02/18 12:05; Admin Dose 2,001 MG; Start 07/29/18 at 12:00 Carvedilol (Coreg) 12.5 mg BID PO Last administered on 08/02/18 08:27; Admin Dose 12.5 MG; Start 07/29/18 at 10:30 Ergocalciferol (Drisdol) 50,000 unit Q7D PO Last administered on 07/29/18 10:57; Admin Dose 50,000 UNIT; Start 07/29/18 at 10:30 Escitalopram Oxalate (Lexapro) 10 mg DAILY PO Last administered on 08/02/18 08:26; Admin Dose 10 MG; Start 07/30/18 at 09:00 Famotidine (Pepcid) 20 mg DAILY PO Last administered on 08/02/18 08:27; Admin Dose 20 MG; Start 07/30/18 at 09:00 Gabapentin (Neurontin) 300 mg QHS PO Last administered on 08/01/18 20:01; Admin Dose 300 MG; Start 07/29/18 at 21:00 Nifedipine (Procardia Xl) 60 mg DAILY PO Last administered on 08/02/18 08:27; Admin Dose 60 MG; Start 07/29/18 at 10:30 Hydromorphone HCl (Dilaudid) 1 mg Q3H PRN IV PAIN Last administered on 08/02/18 12:06; Admin Dose 1 MG; Start 07/29/18 at 15:00 IV Flush (NS 3 ml) 3 ml PER PROTOCOL IV ; Start 07/29/18 at 16:00 Ondansetron HCl (Zofran Inj) 4 mg Q6H PRN IV NAUSEA/VOMITING Last administered on 07/30/18 08:14; Admin Dose 4 MG; Start 07/29/18 at 16:00 Acetaminophen/ Hydrocodone Bitart ([place] (5/325)) 1 tab Q6H PRN PO .MOD PAIN 4- 6 Last administered on 07/30/18 08:14; Admin Dose 1 TAB; Start 07/29/18 at 16:00 Magnesium Hydroxide (Milk Of Mag) 30 ml DAILY PRN PO .CONSTIPATION; Start 07/29/18 at 16:00 Heparin Sodium (Porcine) (Heparin (5000 Units/1ml)) 5,000 unit Q12 SC Last administered on 08/02/18 08:45; Admin Dose 5,000 UNIT; Start 07/29/18 at 21:00 Diagnostic Test (Pha) (Accu-Chek) 1 ea 02 XX Last administered on 07/30/18 01:52; Admin Dose 1 EA; Start 07/30/18 at 02:00 Insulin Aspart (Novolog Insulin Pen) NOVOLOG *MILD* ALGORITHM WITH MEALS BEDTIME SC Last administered on 08/02/18 12:09; Admin Dose 2 UNIT; Start 07/29/18 at 21:00 Heparin Sodium (Porcine) (Heparin (1000 Units/ml)) 3,300 unit AFTER DIALYSIS CATHETER Last administered on 08/02/18 13:29; Admin Dose 3,300 UNIT; Start 07/29/18 at 16:30 Miscellaneous Information 1 ea NOTE XX ; Start 07/29/18 at 18:00 Glucose (Glutose) 15 gm Q15M PRN PO DECREASED GLUCOSE; Start 07/29/18 at 18:00 Glucose (Glutose) 22.5 gm Q15M PRN PO DECREASED GLUCOSE; Start 07/29/18 at 18:00 Dextrose (D50w Syringe) 25 ml Q15M PRN IV DECREASED GLUCOSE; Start 07/29/18 at 18:00 Dextrose (D50w Syringe) 50 ml Q15M PRN IV DECREASED GLUCOSE; Start 07/29/18 at 18:00 Glucagon (Glucagen) 1 mg Q15M PRN IM DECREASED GLUCOSE; Start 07/29/18 at 18:00 Glucose (Glutose) 15 gm Q15M PRN BUCCAL DECREASED GLUCOSE; Start 07/29/18 at 18:00 Insulin Glargine (Lantus) 15 units DAILY@2000 SC Last administered on 08/01/18at 20:43; Admin Dose 15 UNITS; Start 08/01/18 at 20:00 Insulin Aspart (Novolog Insulin Pen) 3 unit WITH MEALS SC Last administered on 08/02/18at 12:09; Admin Dose 3 UNIT; Start 08/01/18 at 18:00 Heparin Sodium (Porcine) (Heparin (1000 Units/ml)) 4,000 unit AFTER DIALYSIS CATHETER ; Start 08/01/18 at 17:00 ANGELA DECKER August 02, 2018 15:58
== END 2018-08-02 16:45 | disposition home or self-care (01) | DRG 391 ==
LOC: E/R 05:51 → 6WM 07:26
PROVIDERS: ADMIT Internal Medicine Nephrology; ATTEND Internal Medicine Nephrology
PROC: 5A1D70Z Performance of Urinary Filtration, Intermittent, Less than 6 Hours Per Day (ICD-10-PCS; principal; 2018-07-29)
DX: R10.12 Left upper quadrant pain (principal); N18.6 End stage renal disease; I12.0 Hypertensive chronic kidney disease with stage 5 chronic kidney disease or end stage renal disease; E87.5 Hyperkalemia; E11.22 Type 2 diabetes mellitus with diabetic chronic kidney disease; Z99.2 Dependence on renal dialysis; I16.0 Hypertensive urgency; E11.21 Type 2 diabetes mellitus with diabetic nephropathy; E11.319 Type 2 diabetes mellitus with unspecified diabetic retinopathy without macular edema; Z91.14 Patient's other noncompliance with medication regimen; E66.3 Overweight; Z68.27 Body mass index [BMI] 27.0-27.9, adult; K31.84 Gastroparesis; F12.90 Cannabis use, unspecified, uncomplicated; Z79.4 Long term (current) use of insulin; I25.10 Atherosclerotic heart disease of native coronary artery without angina pectoris
CPT/HCPCS: 36415; 74177; 76536; 80048; 80053; 82105; 82150; 82550; 82553; 82962; 83690; 83735; 84100; 84484; 84702; 85025; 90935; 93005; 94664; 96374; J0360; J0610; J1170; J1644; J1815; J1885; J2270; J2405; Q9967

== ENCOUNTER 2018-08-09 01:39 | Inpatient (IN) | payer MEDICARE, OTHER ==
[2018-08-09] VITALS (9 sets, daily range): BP systolic 171–225; BP diastolic 82–117; PULSE 88–95; RESP 18–19; Ht 188 cm; Wt 97.0 kg
[~2018-08-09] VITALS: Ht 188 cm; Wt 97.0 kg
[2018-08-09] MEDS ORDERED: ONDANSETRON 4 MG INJ IV STA (02:10)
[2018-08-09] MEDS ORDERED: HYDROmorphONE 1 MG/ML SYG IV STA (02:10)
[2018-08-09] MEDS ORDERED: LABETALOL HCL 20MG INJ IV ONE (02:30)
[2018-08-09] MEDS ORDERED: IODIXANOL LOCM 100 ML BTL ONE (03:07)
[2018-08-09] MEDS ORDERED: SOD CHLORIDE 0.9% 100 ML ONE (03:07)
--- NOTE | 2018-08-09 04:45 | ERD ---
ER Documentation Chief Complaint Chief Complaint flank pain x3-4 days, with chills; denies n/v HPI 32-year-old male with a history of ESRD on hemodialysis as well as hypertension presenting with left upper quadrant pain radiating to his left flank for the past 4 days. He states that he has had this pain on and off for 1 month. He has associated chills but denies any nausea, vomiting, dysuria, hematuria, constipation or diarrhea. He has been admitted multiple times within the past month for the same pain. He states that every test they do, they are not finding any reason for his symptoms. Currently he is complaining of severe stabbing pain in his left upper quadrant, radiating up into his chest and his left flank. No alleviating or exacerbating factors. The pain is constant. ROS All systems reviewed and are negative except as per history of present illness. Medications Home Meds Active Scripts Carvedilol* (Coreg*) 12.5 Mg Tablet, 12.5 MG PO BID for 30 Days, #60 TAB Prov:MIKE GIFFORD MD 07/24/18 Famotidine* (Famotidine*) 20 Mg Tablet, 20 MG PO DAILY for 30 Days, TAB Prov:MIKE GIFFORD MD 07/24/18 Polyethylene Glycol* (Miralax*) 17 Gm Powd.pack, 17 GM PO DAILY for 10 Days Prov:MIKE GIFFORD MD 07/24/18 Aspirin (Aspirin) 81 Mg Chew, 81 MG PO DAILY for 30 Days, TAB Prov:MIKE GIFFORD MD 07/24/18 Nifedipine (Procardia Xl) 60 Mg Tab.er.24, 60 MG PO DAILY for 30 Days, TAB Prov:MIKE GIFFORD MD 07/24/18 Isosorbide Mononitrate* (Isosorbide Mononitrate*) 30 Mg Tab.er.24h, 30 MG PO DAILY for 30 Days Prov:MIKE GIFFORD MD 07/24/18 Atorvastatin* (Atorvastatin*) 40 Mg Tablet, 40 MG PO HS for 30 Days, TAB Prov:MIKE GIFFORD MD 07/24/18 Escitalopram Oxalate* (Escitalopram Oxalate*) 10 Mg Tablet, 10 MG PO DAILY for 30 Days, #30 TAB Prov:MIKE GIFFORD MD 07/24/18 Gabapentin* (Gabapentin*) 300 Mg Capsule, 300 MG PO QHS for 30 Days, #60 CAP Prov:MIKE GIFFORD MD 07/24/18 Furosemide* (Furosemide*) 40 Mg Tablet, 40 MG PO BID for 30 Days, TAB Prov:MIKE GIFFORD MD 07/24/18 Calcium Acetate* (Calcium Acetate*) 667 Mg Capsule, 2001 MG PO WITH MEALS for 28 Days, #30 CAP Prov:MIKE GIFFORD MD 07/24/18 Reported Medications Insulin Human Regular (Novolin-R U-100) 100 Unit/Ml Soln, 10 UNITS SC AC BR [place], EA 08/10/18 Insulin Glargine* (Lantus*) 100 Unit/Ml Soln, 15 UNIT SC DAILY, #1 VIAL 08/10/18 Discontinued Reported Medications Ergocalciferol (Vitamin D2) (VITAMIN D2) 50,000 Unit Capsule, 35108 UNIT PO Q7D, CAP 07/10/18 Discontinued Scripts Hydrocodone Bit-Acetaminophen (Hydrocodone Bit-APAP) 5-325MG Tablet, 1 TAB PO Q6H PRN for .MOD PAIN 4-6 for 14 Days, TAB Prov:MIKE GIFFORD MD 07/24/18 Allergies Allergies: Coded Allergies: benazepril (Verified Allergy, Unknown, 08/09/18) PMhx/Soc History of Surgery: Yes (appendectomy,cholecystectomy) Anesthesia Reaction: No Hx Neurological Disorder: No Hx Respiratory Disorders: No Hx Cardiac Disorders: Yes (htn) Hx Psychiatric Problems: No Hx Miscellaneous Medical Probl: Yes (chronic opiod use, marijuana use ) Hx Alcohol Use: No Hx Substance Use: Yes Hx Tobacco Use: Yes Smoking Status: Current every day smoker FmHx Family History: No diabetes Physical Exam Vitals Vital Signs Date Temp Pulse Resp B/P (MAP) Pulse Ox O2 O2 Flow FiO2 Time Delivery Rate 08/09/18 97.5 80 20 215/124 100 01:50 (154) 08/09/18 97.5 98 20 247/146 100 01:42 (179) Physical Exam Const: Appears to be in distress due to pain Head: Atraumatic Eyes: Normal Conjunctiva. Blind in left eye. ENT: Dry mucous membranes. Normal External Ears, Nose and Mouth. Neck: Full range of motion. No meningismus. Resp: Clear to auscultation bilaterally Cardio: Regular rate and rhythm, no murmurs. 2+ distal pulses Abd: Soft, left upper quadrant and epigastric tenderness to palpation. Normal bowel sounds Skin: No petechiae or rashes Back: Left thoracic paraspinal muscle tenderness. Left CVA tenderness. Thoracic midline tenderness with no step-offs. Ext: No cyanosis, or edema Neur: Awake and alert Psych: Normal Mood and Affect Result Diagram: 08/10/18 0550 08/10/18 0549 Results 24 hrs Laboratory Tests Test 08/09/18 02:23 White Blood Count 6.5 10^3/ul Red Blood Count 3.47 10^6/ul Hemoglobin 10.6 g/dl Hematocrit 32.3 % Mean Corpuscular Volume 93.1 fl Mean Corpuscular Hemoglobin 30.5 pg Mean Corpuscular Hemoglobin Concent 32.8 g/dl Red Cell Distribution Width 13.5 % Platelet Count 189 10^3/UL Mean Platelet Volume 12.0 fl Immature Granulocytes % 0.800 % Neutrophils % 63.1 % Lymphocytes % 19.0 % Monocytes % 11.1 % Eosinophils % 4.9 % Basophils % 1.1 % Nucleated Red Blood Cells % 0.0 /100WBC Immature Granulocytes # 0.050 10^3/ul Neutrophils # 4.1 10^3/ul Lymphocytes # 1.2 10^3/ul Monocytes # 0.7 10^3/ul Eosinophils # 0.3 10^3/ul Basophils # 0.1 10^3/ul Nucleated Red Blood Cells # 0.0 10^3/ul Sodium Level 141 mmol/L Potassium Level 5.4 mmol/L Chloride Level 97 mmol/L Carbon Dioxide Level 32 mmol/L Anion Gap 12 Blood Urea Nitrogen 51 mg/dl Creatinine 10.03 mg/dl Est Glomerular Filtrat Rate mL/min 6 mL/min Glucose Level 274 mg/dl Calcium Level 8.1 mg/dl Total Bilirubin 0.1 mg/dl Direct Bilirubin 0.00 mg/dl Indirect Bilirubin 0.1 mg/dl Aspartate Amino Transf (AST/SGOT) 17 IU/L Alanine Aminotransferase (ALT/SGPT) 18 IU/L Alkaline Phosphatase 82 IU/L Troponin I 0.014 ng/ml Total Protein 7.5 g/dl Albumin 4.0 g/dl Globulin 3.50 g/dl Albumin/Globulin Ratio 1.14 Lipase 3369 U/L Free Thyroxine 1.02 ng/dl Current Medications Medications Dose Sig/[place] Start Time Status Last (Trade) Ordered Route PRN Stop Time Admin Dose Reason Admin 1 mg ONCE STAT 08/09/18 DC 08/09/18 Hydromorphone IV 02:10 02:43 HCl 08/09/18 02:11 (Dilaudid) Ondansetron 4 mg ONCE STAT 08/09/18 DC 08/09/18 HCl (Zofran IV 02:10 02:42 Inj) 08/09/18 02:11 Labetalol 20 mg ONCE ONCE 08/09/18 DC 08/09/18 HCl IV 02:30 02:42 (Labetalol) 08/09/18 02:31 IV Flush 10 ml STK-MED 08/09/18 DC 08/09/18 (NS 10 ml) ONCE .ROUTE 03:07 03:19 08/09/18 03:08 Sodium 100 ml @ ud STK-MED 08/09/18 DC 08/09/18 Chloride ONCE .ROUTE 03:07 03:19 08/09/18 03:08 Iodixanol 100 ml STK-MED 08/09/18 DC 08/09/18 (Visipaque ONCE .ROUTE 03:07 03:19 Locm) 08/09/18 03:08 Procedures/MDM EMERGENT LABS AND DIAGNOSTIC STUDIES: Lab Results above were reviewed and interpreted by me. CBC: Mild anemia, no evidence of infection CMP: Elevated BUN and creatinine with mild hyperkalemia, consistent with history of ESRD. Hyperglycemic without acidosis. Lipase: Elevated, consistent with acute pancreatitis Troponin within normal limits, not indicative of cardiac ischemia 12-lead EKG was interpreted by Carlee Centeno MD: Normal Sinus Rhythm with ventricular rate of 92 beats per minute Normal axis Normal intervals No acute ST or T wave changes suggestive of acute ischemia or STEMI. Radiology Results as interpreted by Radiology below were reviewed by Rad Centeno MD: CTA chest, abdomen, pelvis: IMPRESSION: 1. No evidence of aortic aneurysm or dissection. 2. No central pulmonary emboli. 3. Prominent central pulmonary arteries and rule out pulmonary arterial hypertension. No right heart strain/failure. 4. Mild cardiomegaly with minimal pericardial effusion maximal depth 3 mm. 5. No evidence of pleural effusions, pneumothorax acute lung infiltrates or thoracic lymphadenopathy. 6. Status post prior cholecystectomy. No biliary ductal dilation. 7. No calcified urinary calculi obstructive uropathy. Stable mild perirenal stranding / induration of previous inflammatory changes. 8. Diverticulosis of the sigmoid colon without diverticulitis. 9. Status post prior appendectomy. 10. Stable abdominal wall subcutaneous nodules and soft tissue density left anterior abdominal wall. Initial Nursing notes reviewed. Previous Medical Records requested via the Electronic Health Record. EMERGENCY DEPARTMENT COURSE / MEDICAL DECISION MAKING: Patient is again presenting with left upper quadrant abdominal pain radiating to his back and into his chest. Given his significant medical history and severely elevated blood pressure, I cannot rule out aortic dissection. I reviewed his chart and he has never had a CTA in the past. He has had plain CTs done in the past that did not reveal any significant abnormalities. Patient was given medications to control his blood pressure. Labs did not show any significant abnormalities that would explain his pain other than elevated lipase which may be indicative of pancreatitis. It seems that based on his records, he has had pancreatitis before. The cause of this is unclear as the patient denies drinking. CTA did not show any acute abnormalities, notably no vascular emergency. However patient is not stable for discharge and will need hypertension management as well as treatment of acute pancreatitis. Critical Care Time: 45 minutes Treatments/Evaluations: Close monitoring and treatment of unstable vital signs, cardiorespiratory, and neurologic status, while maintaining tight balance of fluid, respiratory, and cardiac interventions. This time includes discussing the case with the patient and the patients family. This time does not include all procedures stated elsewhere in this record. This time also includes reviewing old records, labs and radiological studies. This time includes examining and re- examining the patient. Additionally, this time also includes arranging care with admitting and consulting physicians. Accepting Care Team: Current data and ongoing care discussed. Time: Time of admission Primary Provider: Dr. Franklin Outstanding Data: None Departure Diagnosis: Primary Impression: Left flank pain Additional Impressions: Left upper quadrant pain Hypertensive urgency Condition: Fair FRANK CENTENO MD August 09, 2018 04:45
[2018-08-09] MEDS ORDERED: ACETAMINOPHEN 325 MG TAB PO PRN ×2 (05:00→13:30)
[2018-08-09] MEDS ORDERED: ONDANSETRON 4 MG INJ IV PRN ×2 (05:00→13:30)
[2018-08-09] MEDS: morphine 2 MG INJ IV PRN ×5 (08:45→20:39)
[2018-08-09] MEDS: hydrALAzine 20 MG INJ IV PRN ×3 (08:45→20:51)
[2018-08-09] MEDS ORDERED: ALBUTEROL/IPRATROPIUM (NEB) 3 ML AMP HHN PRN (13:00)
[2018-08-09] MEDS ORDERED: ENALAPRILAT 1.25 MG INJ IV PRN (13:30)
[2018-08-09] MEDS ORDERED: METOCLOPRAMIDE 10 MG INJ IV PRN (13:30)
[2018-08-09] MEDS ORDERED: NACL 0.9% 3 ML SYG IV SCH (13:30)
[2018-08-09] MEDS ORDERED: MAGNESIUM HYDROXIDE 30ML CUP PO PRN (13:30)
[2018-08-09] MEDS ORDERED: hydrALAzine 20 MG INJ IV PRN (13:30)
[2018-08-09] MEDS ORDERED: LABETALOL HCL 20MG INJ IV PRN (13:30)
[2018-08-09] MEDS ORDERED: DOCUSATE SODIUM 100 MG CAP PO PRN (13:30)
[2018-08-09] MEDS ORDERED: LORAZEPAM 2 MG INJ IV PRN (13:30)
[2018-08-09] MEDS ORDERED: HYDROCODONE/APAP (5/325) TAB PO PRN (13:30)
--- NOTE | 2018-08-09 13:32 | HP ---
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 #Pancreatitis: Again patient with presents with abdominal pain more acute for the last 3 to 4 days. Lipase 3369 on admission. -Admit patient, strict n.p.o. for now, low-dose half-normal saline IV fluids unless otherwise indicated by renal team, antiemetic medications -Follow-up TSH A1c lipid panel, sitter GI consult, trend lipase levels #Hypertensive urgency: Systolic blood pressure in the 1 90-20 range on admission -Since patient will be strict n.p.o., we will do labetalol IV, hydralazine IV, and Vasotec IV all as needed systolic greater than 160 #End-stage renal disease: On dialysis as outpatient -We will continue dialysis as inpatient and get renal consult #Prior history of marijuana use: -Consider checking drug screen, monitor for signs of withdrawal, counseled on cessation Result Diagram: 08/09/1822208/09/18 0223 Results 24hrs Laboratory Tests Test 08/09/18 02:23 White Blood Count 6.5 Red Blood Count 3.47 L Hemoglobin 10.6 L Hematocrit 32.3 L Mean Corpuscular Volume 93.1 Mean Corpuscular Hemoglobin 30.5 Mean Corpuscular Hemoglobin Concent 32.8 Red Cell Distribution Width 13.5 Platelet Count 189 # Mean Platelet Volume 12.0 H Immature Granulocytes % 0.800 H Neutrophils % 63.1 Lymphocytes % 19.0 Monocytes % 11.1 H Eosinophils % 4.9 Basophils % 1.1 Nucleated Red Blood Cells % 0.0 Immature Granulocytes # 0.050 H Neutrophils # 4.1 Lymphocytes # 1.2 Monocytes # 0.7 Eosinophils # 0.3 Basophils # 0.1 Nucleated Red Blood Cells # 0.0 Sodium Level 141 Potassium Level 5.4 H Chloride Level 97 Carbon Dioxide Level 32 H Anion Gap 12 Blood Urea Nitrogen 51 H Creatinine 10.03 H Est Glomerular Filtrat Rate mL/min 6 L Glucose Level 274 H Calcium Level 8.1 L Total Bilirubin 0.1 L Direct Bilirubin 0.00 Indirect Bilirubin 0.1 Aspartate Amino Transf (AST/SGOT) 17 Alanine Aminotransferase (ALT/SGPT) 18 Alkaline Phosphatase 82 Troponin I 0.014 Total Protein 7.5 Albumin 4.0 Globulin 3.50 H Albumin/Globulin Ratio 1.14 Lipase 3369 H HPI/ROS Admit Date/Time Admit Date/Time Hx of Present Illness 32-year-old male past medical history of end-stage renal disease on dialysis, marijuana use, possible gastroparesis, hypertension, questionable diabetes who presents with left upper quadrant pain. Symptoms have been more acute for the last 3 to 4 days, but he states that he has had this pain on and off for 1 month. Positive chills but denies any nausea, vomiting, dysuria, hematuria, constipation or diarrhea. He has been admitted multiple times within the past month for the same pain. Patient also stated stabbing pain in his left upper quadrant, radiating up into his chest and his left flank. When he arrived today his lipase levels were found to be elevated 3369. Patient was given pain control medications in the ER today and is presently n.p.o. Patient was last hospitalized here at [facility] from July 29 to August 02, 2018 for abdominal pain at that time. PMH/Family/Social Past Medical History Medications Current Medications Ondansetron HCl (Zofran Inj) 4 mg ER BRIDGE PRN IV NAUSEA/VOMITING; Start 08/09/18 at 05:00; Stop 08/10/18 at 04:59 Acetaminophen (Tylenol Tab) 650 mg ER BRIDGE PRN PO .MILD PAIN 1-3 OR TEMP; Start 08/09/18 at 05:00; Stop 08/10/18 at 04:59 Hydralazine HCl (Apresoline) 20 mg Q4H PRN IV ELEVATED BLOOD PRESSURE Last administered on 08/09/18at 08:45; Admin Dose 20 MG; Start 08/09/18 at 08:30 Morphine Sulfate (morphine) 2 mg Q2H PRN IV PAIN LEVEL 7-10 Last administered on 08/09/18at 12:08; Admin Dose 2 MG; Start 08/09/18 at 08:30 Aspirin (Aspirin) 81 mg DAILY PO ; Start 08/10/18 at 09:00; Status UNV Atorvastatin Calcium (Lipitor) 40 mg HS PO ; Start 08/09/18 at 21:00; Status UNV Calcium Acetate (Phoslo) 2,001 mg WITH MEALS PO ; Start 08/09/18 at 18:00; Sta tus UNV Carvedilol (Coreg) 12.5 mg BID PO ; Start 08/09/18 at 21:00; Status UNV Escitalopram Oxalate (Lexapro) 10 mg DAILY PO ; Start 08/10/18 at 09:00; Status UNV Furosemide (Lasix) 40 mg BID PO ; Start 08/09/18 at 21:00; Status UNV Gabapentin (Neurontin) 300 mg QHS PO ; Start 08/09/18 at 21:00; Status UNV Isosorbide Mononitrate (Imdur) 30 mg DAILY PO ; Start 08/10/18 at 09:00; Status UNV Nifedipine (Procardia Xl) 60 mg DAILY PO ; Start 08/10/18 at 09:00; Status UNV Polyethylene Glycol (Miralax) 17 gm DAILY PO ; Start 08/10/18 at 09:00; Status UNV IV Flush (NS 3 ml) 3 ml PER PROTOCOL IV ; Start 08/09/18 at 13:30; Status UNV Ondansetron HCl (Zofran Inj) 8 mg Q6H PRN IV NAUSEA/VOMITING; Start 08/09/18 at 13:30; Status UNV Metoclopramide HCl (Reglan) 10 mg Q6H PRN IV NAUSEA/VOMITING; Start 08/09/18 at 13:30; Status UNV Acetaminophen (Tylenol Tab) 650 mg Q6H PRN PO .PAIN 1-3 OR TEMP; Start 08/09/18 at 13:30; Status UNV Acetaminophen/ Hydrocodone Bitart ([place] (5/325)) 1 tab Q6H PRN PO .MOD PAIN 4- 6; Start 08/09/18 at 13:30; Status UNV Morphine Sulfate (morphine) 2 mg Q4H PRN IV .SEVERE PAIN 7-10; Start 08/09/18 at 13:30; Status UNV Docusate Sodium (Colace) 100 mg Q12H PRN PO .CONSTIPATION; Start 08/09/18 at 13:30; Status UNV Magnesium Hydroxide (Milk Of Mag) 30 ml DAILY PRN PO .CONSTIPATION; Start 08/09/18 at 13:30; Status UNV Famotidine (Pepcid Iv) 20 mg Q12 IV ; Start 08/09/18 at 21:00; Status UNV Sodium Chloride 1,000 ml @ 75 mls/hr [id number] IV ; Start 08/09/18 at 13:20; Status UNV Lorazepam (Ativan) 0.5 mg Q6H PRN IV ANXIETY; Start 08/09/18 at 13:30; Status UNV Albuterol/ Ipratropium (Duoneb) 3 ml Q4H RESP THERAPY PRN HHN SHORTNESS OF BREATH; Start 08/09/18 at 13:30; Status UNV Hydralazine HCl (Apresoline) 10 mg Q4H PRN IV ELEVATED BLOOD PRESSURE; Start 08/09/18 at 13:30; Status UNV Nitroglycerin (Nitroglycerin (Sl Tab) 0.4 Mg) 1 tab Q5M PRN SL ANGINA; Start 08/09/18 at 13:30; Status UNV Enalaprilat (Vasotec Iv) 1.25 mg Q4H PRN IV ELEVATED BLOOD PRESSURE; Start 08/09/18 at 13:30; Status UNV Labetalol HCl (Labetalol) 20 mg Q6 PRN IV ELEVATED BLOOD PRESSURE; Start 08/09/18 at 13:30; Status UNV Coded Allergies: benazepril (Verified Allergy, Unknown, 08/09/18) Past Surgical History Past Surgical Hx: appendectomy, cholecystectomy Family History Significant Family History: diabetes Social History Alcohol Use: occasionally Smoking Status: Current every day smoker Drug Use: other ([place]) Exam/Review of Systems Vital Signs Vitals Vital Signs Date Temp Pulse Resp B/P (MAP) Pulse Ox O2 O2 Flow FiO2 Time Delivery Rate 08/09/18 97.9 78 18 210/105 100 Room Air 12:00 (140) Intake and Output 08/08/18 08/08/18 08/09/18 1414:59 22:59 06:59 IntakeIntake Total 100 ml BalanceBalance 100 ml Exam Exam Gen: Lying in bed Head: Atraumatic Eyes: Normal Conjunctiva. Blind in left eye. ENT: Dry mucous membranes. Normal External Ears, Nose and Mouth. Neck: Full range of motion. No meningismus. Resp: Clear to auscultation bilaterally Cardio: Regular rate and rhythm, no murmurs. Abd: Soft, left upper quadrant and epigastric tenderness to palpation. Normal bowel sounds Back: Left thoracic paraspinal muscle tenderness. Left CVA tenderness. Ext: No cyanosis, or edema Neuro: Awake and alert VANCE ROSA August 09, 2018 13:32
[2018-08-09] MEDS ORDERED: ONDANSETRON INJ 8 MG in SOD CHLORIDE 0.9% 50 ML IV PRN (14:00)
[2018-08-09] MEDS: SOD CHLORIDE 0.45% 1,000 ML IV SCH ×2 (14:12→21:54)
[2018-08-09] MEDS: CALCIUM ACETATE 667 MG CAP PO SCH (17:41)
[2018-08-09] MEDS ORDERED: FUROSEMIDE 40 MG TAB PO SCH (21:00)
[2018-08-09] MEDS: ATORVASTATIN 40 MG TAB PO SCH (21:37)
[2018-08-09] MEDS: GABAPENTIN 300 MG CAP PO SCH (21:37)
[2018-08-09] MEDS: NITROGLYCERIN (SL) 0.4 MG TAB SL PRN ×3 (21:38→22:11)
[2018-08-09] MEDS ORDERED: NIFEdipine (XL) 90 MG TAB PO STA (22:01)
--- NOTE | 2018-08-09 22:09 | CONS ---
Assessment/Plan Assessment/Plan Assessment/Plan (Daily) 1. acute hyperkalemia due to missed HD 2. HTN Urgency 3. ESRD on HD TTS schedule, pt missed his HD today 4. H/O HTN 5. H/o HL 6. H/o marajuana Use Plan: pt seen in ED, he is gettting admitted to telemetry floor will give Nifedipine XL 90mg po x 1 dose stat then Nifedipine XL 60mg PO BID, IV Hydralazine pnr SBP more than 150 mm Hg HD ordered for Tomorrow First in AM pt regular schedule for HD is Sat, Thus,Saturday, His Studio Producer is Dr. Ma but he requested to see Different Primary MD and different game advisor Thanks for consultation I will continue to follow up Consultation Date/Type/Reason Admit Date/Time 08/09/2018 Date of Consultation: August 09, 2018 Type of Consult NEPHROLOGY Reason for Consultation ESRD on HD with acute hyperkalemia, HTN urgency Requesting Provider: VANCE ROSA Date/Time of Note DATE: 08/09/18 TIME: 22:08 Hx of Present Illness 32-year-old male presenting with left upper quadrant pain signs of acute pharyngitis, prior history of ESRD on dialysis, hypertension, marijuana use.he gets admitted for acute pancreatitis, noted to have hyperkalemia with K 5.4- als o HTN urgency with SBP in 190-200s- Pt gets admitted to telemetry floor- pt regular schedule for HD is TTS and Today he missed his HD- Renal has been consulted for acute hyperkalemia, HTN urgency, need for HD today vs tomorrow No fever, no chills, no SOB, pt is on Room Air Constitutional: no complaints Eyes: no complaints ENT: no complaints Respiratory: no complaints Cardiovascular: no complaints Gastrointestinal: pain, decreased appetite, nausea, vomiting Genitourinary: no complaints Musculoskeletal: no complaints Skin: no complaints Neurologic: no complaints Endocrine: no complaints Lymphatic: no complaints Psychological: no complaints Immunologic: no complaints Past Medical History Medical History: high cholesterol, hypertension, pancreatitis Home Meds Active Scripts Carvedilol* (Coreg*) 12.5 Mg Tablet, 12.5 MG PO BID for 30 Days, #60 TAB Prov:MIKE GIFFORD MD 07/24/18 Famotidine* (Famotidine*) 20 Mg Tablet, 20 MG PO DAILY for 30 Days, TAB Prov:MIKE GIFFORD MD 07/24/18 Polyethylene Glycol* (Miralax*) 17 Gm Powd.pack, 17 GM PO DAILY for 10 Days Prov:IMKE GIFFORD MD 07/24/18 Aspirin (Aspirin) 81 Mg Chew, 81 MG PO DAILY for 30 Days, TAB Prov:MIKE GIFFORD MD 07/24/18 Nifedipine (Procardia Xl) 60 Mg Tab.er.24, 60 MG PO DAILY for 30 Days, TAB Prov:MIKE GIFFORD MD 07/24/18 Isosorbide Mononitrate* (Isosorbide Mononitrate*) 30 Mg Tab.er.24h, 30 MG PO DAILY for 30 Days Prov:MIKE GIFFORD MD 07/24/18 Atorvastatin* (Atorvastatin*) 40 Mg Tablet, 40 MG PO HS for 30 Days, TAB Prov:MIKE GIFFORD MD 07/24/18 Escitalopram Oxalate* (Escitalopram Oxalate*) 10 Mg Tablet, 10 MG PO DAILY for 30 Days, #30 TAB Prov:MIKE GIFFORD MD 07/24/18 Gabapentin* (Gabapentin*) 300 Mg Capsule, 300 MG PO QHS for 30 Days, #60 CAP Prov:MIKE GIFFORD MD 07/24/18 Furosemide* (Furosemide*) 40 Mg Tablet, 40 MG PO BID for 30 Days, TAB Prov:MIKE GIFFORD MD 07/24/18 Calcium Acetate* (Calcium Acetate*) 667 Mg Capsule, 2001 MG PO WITH MEALS for 28 Days, #30 CAP Prov:MIKE GIFFORD MD 07/24/18 Discontinued Reported Medications Ergocalciferol (Vitamin D2) (VITAMIN D2) 50,000 Unit Capsule, 49104 UNIT PO Q7D, CAP 07/10/18 Discontinued Scripts Hydrocodone Bit-Acetaminophen (Hydrocodone Bit-APAP) 5-325MG Tablet, 1 TAB PO Q6H PRN for .MOD PAIN 4-6 for 14 Days, TAB Prov:MIKE GIFFORD MD 07/24/18 Medications Current Medications Hydralazine HCl (Apresoline) 20 mg Q4H PRN IV ELEVATED BLOOD PRESSURE Last administered on 08/09/18at 20:51; Admin Dose 20 MG; Start 08/09/18 at 08:30 Morphine Sulfate (morphine) 2 mg Q2H PRN IV PAIN LEVEL 7-10 Last administered on 08/09/18at 20:39; Admin Dose 2 MG; Start 08/09/18 at 08:30 Aspirin (Aspirin) 81 mg DAILY PO ; Start 08/10/18 at 09:00 Atorvastatin Calcium (Lipitor) 40 mg HS PO Last administered on 08/09/18at 21:37; Admin Dose 40 MG; Start 08/09/18 at 21:00 Calcium Acetate (Phoslo) 2,001 mg WITH MEALS PO ; Start 08/09/18 at 18:00 Carvedilol (Coreg) 12.5 mg BID PO Last administered on 08/09/18at 21:37; Admin Dose 12.5 MG; Start 08/09/18 at 21:00 Escitalopram Oxalate (Lexapro) 10 mg DAILY PO ; Start 08/10/18 at 09:00 Gabapentin (Neurontin) 300 mg QHS PO Last administered on 08/09/18at 21:37; Admin Dose 300 MG; Start 08/09/18 at 21:00 Isosorbide Mononitrate (Imdur) 30 mg DAILY PO ; Start 08/10/18 at 09:00 Polyethylene Glycol (Miralax) 17 gm DAILY PO ; Start 08/10/18 at 09:00 IV Flush (NS 3 ml) 3 ml PER PROTOCOL IV ; Start 08/09/18 at 13:30 Metoclopramide HCl (Reglan) 5 mg Q6H PRN IV NAUSEA/VOMITING; Start 08/09/18 at 13:30 Acetaminophen (Tylenol Tab) 650 mg Q6H PRN PO .PAIN 1-3 OR TEMP; Start 08/09/18 at 13:30 Acetaminophen/ Hydrocodone Bitart ([place] (5/325)) 1 tab Q6H PRN PO .MOD PAIN 4- 6; Start 08/09/18 at 13:30 Morphine Sulfate (morphine) 2 mg Q4H PRN IV .SEVERE PAIN 7-10; Start 08/09/18 at 13:30 Docusate Sodium (Colace) 100 mg Q12H PRN PO .CONSTIPATION; Start 08/09/18 at 13:30 Magnesium Hydroxide (Milk Of Mag) 30 ml DAILY PRN PO .CONSTIPATION; Start 08/09/18 at 13:30 Famotidine (Pepcid Iv) 20 mg DAILY IV ; Start 08/10/18 at 09:00 Sodium Chloride 1,000 ml @ 75 mls/hr [id number] IV Last administered on 08/09/18at 21:54; Admin Dose 75 MLS/HR; Start 08/09/18 at 13:20 Lorazepam (Ativan) 0.5 mg Q6H PRN IV ANXIETY; Start 08/09/18 at 13:30 Albuterol/ Ipratropium (Duoneb) 3 ml Q4H RESP THERAPY PRN HHN SHORTNESS OF BREATH; Start 08/09/18 at 13:00 Hydralazine HCl (Apresoline) 10 mg Q4H PRN IV ELEVATED BLOOD PRESSURE; Start 08/09/18 at 13:30 Nitroglycerin (Nitroglycerin (Sl Tab) 0.4 Mg) 1 tab Q5M PRN SL ANGINA Last administered on 08/09/18at 21:52; Admin Dose 1 TAB; Start 08/09/18 at 13:30 Enalaprilat (Vasotec Iv) 1.25 mg Q4H PRN IV ELEVATED BLOOD PRESSURE; Start 08/09/18 at 13:30 Labetalol HCl (Labetalol) 20 mg Q6H PRN IV ELEVATED BLOOD PRESSURE; Start 08/09/18 at 13:30 Ondansetron HCl 8 mg/Sodium Chloride 54 ml @ 216 mls/hr Q6H PRN IV NAUSEA AND/OR VOMITING; Start 08/09/18 at 14:00 Nifedipine (Procardia Xl) 60 mg BID PO ; Start 08/10/18 at 09:00; Status UNV Nifedipine (Procardia Xl) 90 mg ONCE STAT PO ; Start 08/09/18 at 22:01; Stop 08/09/18 at 22:02; Status UNV Allergies: Coded Allergies: benazepril (Verified Allergy, Unknown, 08/09/18) Past Surgical History Past Surgical Hx: appendectomy, cholecystectomy, other (Permacath for HD access ) Family History Significant Family History: no pertinent family hx Social History Alcohol Use: none Smoking Status: Current every day smoker Drug Use: other ([place]) Exam/Review of Systems Exam Vitals Vital Signs Date Temp Pulse Resp B/P (MAP) Pulse Ox O2 O2 Flow FiO2 Time Delivery Rate 08/09/18 95 173/82 21:51 (112) 08/09/18 98.1 18 99 Room Air 20:44 Intake and Output 08/08/18 08/08/18 08/09/18 1515:00 23:00 07:00 IntakeIntake Total 100 ml BalanceBalance 100 ml Constitutional: alert, distress Psych: no complaints Head: normocephalic Eyes: nl conjunctiva ENMT: nl external ears & nose Neck: supple, non-tender Respiratory: clear to auscultation, normal air movement, diminished breath sounds Cardiovascular: regular rate and rhythm, nl pulses Gastrointestinal: soft, non-tender Musculoskeletal: nl extremities to inspection, spine non-tender, swelling Extremities: normal pulses Neurological: NUCLEAR PLANT TECHNICAL ADVISOR II-XII intact, nl mental status, nl speech, nl strength Skin: nl turgor Lymph: nl lymph nodes Results Result Diagram: 08/09/1822208/09/18222 Results 24hrs Laboratory Tests Test 08/09/18 02:23 White Blood Count 6.5 Red Blood Count 3.47 L Hemoglobin 10.6 L Hematocrit 32.3 L Mean Corpuscular Volume 93.1 Mean Corpuscular Hemoglobin 30.5 Mean Corpuscular Hemoglobin Concent 32.8 Red Cell Distribution Width 13.5 Platelet Count 189 # Mean Platelet Volume 12.0 H Immature Granulocytes % 0.800 H Neutrophils % 63.1 Lymphocytes % 19.0 Monocytes % 11.1 H Eosinophils % 4.9 Basophils % 1.1 Nucleated Red Blood Cells % 0.0 Immature Granulocytes # 0.050 H Neutrophils # 4.1 Lymphocytes # 1.2 Monocytes # 0.7 Eosinophils # 0.3 Basophils # 0.1 Nucleated Red Blood Cells # 0.0 Sodium Level 141 Potassium Level 5.4 H Chloride Level 97 Carbon Dioxide Level 32 H Anion Gap 12 Blood Urea Nitrogen 51 H Creatinine 10.03 H Est Glomerular Filtrat Rate mL/min 6 L Glucose Level 274 H Calcium Level 8.1 L Total Bilirubin 0.1 L Direct Bilirubin 0.00 Indirect Bilirubin 0.1 Aspartate Amino Transf (AST/SGOT) 17 Alanine Aminotransferase (ALT/SGPT) 18 Alkaline Phosphatase 82 Troponin I 0.014 Total Protein 7.5 Albumin 4.0 Globulin 3.50 H Albumin/Globulin Ratio 1.14 Lipase 3369 H Free Thyroxine 1.02 Medications Medication Current Medications Hydralazine HCl (Apresoline) 20 mg Q4H PRN IV ELEVATED BLOOD PRESSURE Last administered on 5/11/19at 20:51; Admin Dose 20 MG; Start 08/09/18 at 08:30 Morphine Sulfate (morphine) 2 mg Q2H PRN IV PAIN LEVEL 7-10 Last administered on 08/09/18at 20:39; Admin Dose 2 MG; Start 08/09/18 at 08:30 Aspirin (Aspirin) 81 mg DAILY PO ; Start 08/10/18 at 09:00 Atorvastatin Calcium (Lipitor) 40 mg HS PO Last administered on 08/09/18at 21:37; Admin Dose 40 MG; Start 08/09/18 at 21:00 Calcium Acetate (Phoslo) 2,001 mg WITH MEALS PO ; Start 08/09/18 at 18:00 Carvedilol (Coreg) 12.5 mg BID PO Last administered on 08/09/18at 21:37; Admin Dose 12.5 MG; Start 08/09/18 at 21:00 Escitalopram Oxalate (Lexapro) 10 mg DAILY PO ; Start 08/10/18 at 09:00 Gabapentin (Neurontin) 300 mg QHS PO Last administered on 08/09/18at 21:37; Admin Dose 300 MG; Start 08/09/18 at 21:00 Isosorbide Mononitrate (Imdur) 30 mg DAILY PO ; Start 08/10/18 at 09:00 Polyethylene Glycol (Miralax) 17 gm DAILY PO ; Start 08/10/18 at 09:00 IV Flush (NS 3 ml) 3 ml PER PROTOCOL IV ; Start 08/09/18 at 13:30 Metoclopramide HCl (Reglan) 5 mg Q6H PRN IV NAUSEA/VOMITING; Start 08/09/18 at 13:30 Acetaminophen (Tylenol Tab) 650 mg Q6H PRN PO .PAIN 1-3 OR TEMP; Start 08/09/18 at 13:30 Acetaminophen/ Hydrocodone Bitart ([place] (5/325)) 1 tab Q6H PRN PO .MOD PAIN 4- 6; Start 08/09/18 at 13:30 Morphine Sulfate (morphine) 2 mg Q4H PRN IV .SEVERE PAIN 7-10; Start 08/09/18 at 13:30 Docusate Sodium (Colace) 100 mg Q12H PRN PO .CONSTIPATION; Start 08/09/18 at 13:30 Magnesium Hydroxide (Milk Of Mag) 30 ml DAILY PRN PO .CONSTIPATION; Start 08/09/18 at 13:30 Famotidine (Pepcid Iv) 20 mg DAILY IV ; Start 08/10/18 at 09:00 Sodium Chloride 1,000 ml @ 75 mls/hr [id number] IV Last administered on 08/09/18at 21:54; Admin Dose 75 MLS/HR; Start 08/09/18 at 13:20 Lorazepam (Ativan) 0.5 mg Q6H PRN IV ANXIETY; Start 08/09/18 at 13:30 Albuterol/ Ipratropium (Duoneb) 3 ml Q4H RESP THERAPY PRN HHN SHORTNESS OF BREATH; Start 08/09/18 at 13:00 Hydralazine HCl (Apresoline) 10 mg Q4H PRN IV ELEVATED BLOOD PRESSURE; Start 08/09/18 at 13:30 Nitroglycerin (Nitroglycerin (Sl Tab) 0.4 Mg) 1 tab Q5M PRN SL ANGINA Last a dministered on 08/09/18at 21:52; Admin Dose 1 TAB; Start 08/09/18 at 13:30 Enalaprilat (Vasotec Iv) 1.25 mg Q4H PRN IV ELEVATED BLOOD PRESSURE; Start 08/09/18 at 13:30 Labetalol HCl (Labetalol) 20 mg Q6H PRN IV ELEVATED BLOOD PRESSURE; Start 08/09/18 at 13:30 Ondansetron HCl 8 mg/Sodium Chloride 54 ml @ 216 mls/hr Q6H PRN IV NAUSEA AND/OR VOMITING; Start 08/09/18 at 14:00 Nifedipine (Procardia Xl) 60 mg BID PO ; Start 08/10/18 at 09:00; Status UNV Nifedipine (Procardia Xl) 90 mg ONCE STAT PO ; Start 08/09/18 at 22:01; Stop 08/09/18 at 22:02; Status UNV PATRICIA VELARDE MD August 09, 2018 22:09
[2018-08-09] MEDS ORDERED: HEPARIN 1000 UNITS/ML 10 ML INJ CATHETER SCH (22:30)
[2018-08-09] MEDS ORDERED: ALBUMIN HUMAN 25% 100 ML IV PRN (22:30)
[2018-08-09] MEDS ORDERED: SODIUM CHLORIDE 0.9% 1L BAG IV PRN (22:30)
[2018-08-10] VITALS (24 sets, daily range): BP systolic 108–180; BP diastolic 55–103; PULSE 73–90; RESP 18–20
[2018-08-10] MEDS ORDERED: HEPARIN 1000 UNITS/ML 10 ML INJ IV PRN (00:30)
[2018-08-10] MEDS: HEPARIN 25000 UNITS/250 ML 250 ML IV SCH ×2 (00:54→09:40)
[2018-08-10] MEDS ORDERED: LANT3I SC (01:15)
[2018-08-10] MEDS ORDERED: SS SC (01:15)
[2018-08-10] MEDS: morphine 2 MG INJ IV PRN ×3 (01:40→21:39)
[2018-08-10] MEDS ORDERED: GLUCOSE GEL 15 GRAM TUBE BUCCAL PRN (03:00)
[2018-08-10] MEDS ORDERED: DEXTROSE 50% 50 ML SYRINGE IV PRN ×2 (03:00)
[2018-08-10] MEDS ORDERED: GLUCOSE GEL 15 GRAM TUBE PO PRN ×2 (03:00)
[2018-08-10] MEDS ORDERED: GLUCAGON 1 MG INJ IM PRN (03:00)
[2018-08-10] MEDS: CALCIUM ACETATE 667 MG CAP PO SCH ×3 (08:00→17:27)
--- NOTE | 2018-08-10 08:07 | EN ---
Date/Time of Note Date/Time of Note DATE: 08/10/18 TIME: 08:06 Event Note Medicine Medicine Event Note Patient was complaining of chest pain overnight. First EKG with some changes with repeat EKG back to baseline. Stat troponin was obtained and it came back positive at 1.14. Patient at that time was started on a heparin drip. I decreased the rate because the patient is a dialysis patient. Third troponin is now negative. Daytime MD will arrive soon who will make a decision about continuation of heparin drip. 2D echo has been ordered. SERA RAMIREZ MD August 10, 2018 08:07
[2018-08-10] MEDS: NIFEdipine (XL) 60 MG TAB PO SCH ×2 (08:08→21:37)
[2018-08-10] MEDS: ISOSORBIDE MONONITRATE(SR)30 MG TAB PO SCH (08:08)
--- NOTE | 2018-08-10 08:08 | CONS ---
Assessment/Plan Assessment/Plan Assessment/Plan (Daily) 1. acute hyperkalemia due to missed HD 2. HTN Urgency 3. ESRD on HD TTS schedule, pt missed his HD today 4. H/O HTN 5. H/o HL 6. H/o marajuana Use Plan: s/p HD today 200 Cc removed, Conitnue Nifedipine XL 60mg PO BID, IV Hydralazine pnr SBP more than 150 mm Hg, now BP in systolic 170s pt regular schedule for HD is Sat, Thus,Saturday, His Collateral Specialist is Dr. Ma but he requested to see Different Primary MD and different free lance model next HD will be on will follow up Consultation Date/Type/Reason Admit Date/Time August 09, 2018 at 04:43 Initial Consult Date 08/09/18 Type of Consult NEPHROLOGY Requesting Provider: VANCE ROSA Date/Time of Note DATE: 08/10/18 TIME: 08:08 Exam/Review of Systems Exam Vitals Vital Signs Date Temp Pulse Resp B/P (MAP) Pulse Ox O2 O2 Flow FiO2 Time Delivery Rate 08/10/18 98.6 80 20 108/58 94 Room Air 07:29 (75) Intake and Output 08/09/18 08/09/18 08/10/18 1515:00 23:00 07:00 IntakeIntake Total 500 ml 775 ml BalanceBalance 500 ml 775 ml Exam Constitutional: alert, distress Respiratory: clear to auscultation, normal air movement, diminished breath sounds Cardiovascular: regular rate and rhythm, nl pulses Gastrointestinal: soft, non-tender Musculoskeletal: nl extremities to inspection, spine non-tender, swelling Extremities: normal pulses Neurological: CLIENT TECHNOLOGIES SPECIALIST II-XII intact, nl mental status, nl speech, nl strength Results Result Diagram: 08/10/18 0550 08/10/18 0549 Results 24hrs Laboratory Tests Test 08/09/18 22:03 08/09/18 23:50 08/10/18 01:01 08/10/18 01:56 Creatine Kinase 72 Creatine Kinase 4.4 Index Creatinine Kinase MB 3.19 H (Mass) Troponin I 1.140 *H 0.020 Activated 26.7 Partial Thromboplast Time Bedside Glucose 179 Test 08/10/18 05:49 08/10/18 05:50 08/10/18 05:51 08/10/18 07:40 Sodium Level 139 Potassium Level 5.9 H Chloride Level 100 Carbon Dioxide Level 26 Anion Gap 13 Blood Urea Nitrogen 59 H Creatinine 11.19 H Est Glomerular 5 L Filtrat Rate mL/min Glucose Level 152 # Calcium Level 8.5 Phosphorus Level 9.4 H Magnesium Level 2.3 White Blood Count 9.5 # Red Blood Count 3.35 L Hemoglobin 10.2 L Hematocrit 31.6 L Mean Corpuscular 94.3 Volume Mean Corpuscular 30.4 Hemoglobin Mean Corpuscular 32.3 Hemoglobin Concent Red Cell 13.8 Distribution Width Platelet Count 201 Mean Platelet Volume 12.3 H Immature 0.400 Granulocytes % Neutrophils % 72.4 Lymphocytes % 15.3 Monocytes % 7.5 Eosinophils % 3.7 Basophils % 0.7 Nucleated Red Blood 0.0 Cells % Immature 0.040 H Granulocytes # Neutrophils # 6.9 Lymphocytes # 1.5 Monocytes # 0.7 Eosinophils # 0.4 Basophils # 0.1 Nucleated Red Blood 0.0 Cells # Hemoglobin A1c 8.1 H Lipase 134 Triglycerides Level 297 H Cholesterol Level 144 LDL Cholesterol, 63 Calculated HDL Cholesterol 22 L Cholesterol/HDL 6.5 Ratio Thyroid Stimulating 2.950 Hormone (TSH) Bedside Glucose 179 Medications Medication Current Medications Hydralazine HCl (Apresoline) 20 mg Q4H PRN IV ELEVATED BLOOD PRESSURE Last administered on 08/09/18at 20:51; Admin Dose 20 MG; Start 08/09/18 at 08:30 Morphine Sulfate (morphine) 2 mg Q2H PRN IV PAIN LEVEL 7-10 Last administered on 08/10/18at 01:40; Admin Dose 2 MG; Start 08/09/18 at 08:30 Aspirin (Aspirin) 81 mg DAILY PO ; Start 08/10/18 at 09:00 Atorvastatin Calcium (Lipitor) 40 mg HS PO Last administered on 08/09/18at 21:37; Admin Dose 40 MG; Start 08/09/18 at 21:00 Calcium Acetate (Phoslo) 2,001 mg WITH MEALS PO ; Start 08/09/18 at 18:00 Carvedilol (Coreg) 12.5 mg BID PO Last administered on 08/09/18at 21:37; Admin Dose 12.5 MG; Start 08/09/18 at 21:00 Escitalopram Oxalate (Lexapro) 10 mg DAILY PO ; Start 08/10/18 at 09:00 Gabapentin (Neurontin) 300 mg QHS PO Last administered on 08/09/18at 21:37; Admin Dose 300 MG; Start 08/09/18 at 21:00 Isosorbide Mononitrate (Imdur) 30 mg DAILY PO ; Start 08/10/18 at 09:00 Polyethylene Glycol (Miralax) 17 gm DAILY PO ; Start 08/10/18 at 09:00 IV Flush (NS 3 ml) 3 ml PER PROTOCOL IV ; Start 08/09/18 at 13:30 Metoclopramide HCl (Reglan) 5 mg Q6H PRN IV NAUSEA/VOMITING; Start 08/09/18 at 13:30 Acetaminophen (Tylenol Tab) 650 mg Q6H PRN PO .PAIN 1-3 OR TEMP; Start 08/09/18 at 13:30 Acetaminophen/ Hydrocodone Bitart ([place] (5/325)) 1 tab Q6H PRN PO .MOD PAIN 4- 6; Start 08/09/18 at 13:30 Morphine Sulfate (morphine) 2 mg Q4H PRN IV .SEVERE PAIN 7-10; Start 08/09/18 at 13:30 Docusate Sodium (Colace) 100 mg Q12H PRN PO .CONSTIPATION; Start 08/09/18 at 13:30 Magnesium Hydroxide (Milk Of Mag) 30 ml DAILY PRN PO .CONSTIPATION; Start 08/09/18 at 13:30 Famotidine (Pepcid Iv) 20 mg DAILY IV ; Start 08/10/18 at 09:00 Sodium Chloride 1,000 ml @ 60 mls/hr [id number] IV Last administered on 08/09/18at 21:54; Admin Dose 75 MLS/HR; Start 08/09/18 at 13:20 Lorazepam (Ativan) 0.5 mg Q6H PRN IV ANXIETY; Start 08/09/18 at 13:30 Albuterol/ Ipratropium (Duoneb) 3 ml Q4H RESP THERAPY PRN HHN SHORTNESS OF BREATH; Start 08/09/18 at 13:00 Hydralazine HCl (Apresoline) 10 mg Q4H PRN IV ELEVATED BLOOD PRESSURE; Start 08/09/18 at 13:30 Nitroglycerin (Nitroglycerin (Sl Tab) 0.4 Mg) 1 tab Q5M PRN SL ANGINA Last administered on 08/09/18at 22:11; Admin Dose 1 TAB; Start 08/09/18 at 13:30 Enalaprilat (Vasotec Iv) 1.25 mg Q4H PRN IV ELEVATED BLOOD PRESSURE; Start 08/09/18 at 13:30 Labetalol HCl (Labetalol) 20 mg Q6H PRN IV ELEVATED BLOOD PRESSURE; Start 08/09/18 at 13:30 Ondansetron HCl 8 mg/Sodium Chloride 54 ml @ 216 mls/hr Q6H PRN IV NAUSEA AND/OR VOMITING; Start 08/09/18 at 14:00 Nifedipine (Procardia Xl) 60 mg BID PO ; Start 08/10/18 at 09:00 Heparin Sodium (Porcine) (Heparin (1000 Units/ml)) 4,000 unit AFTER DIALYSIS CATHETER ; Start 08/09/18 at 22:30 Albumin Human 100 ml @ 100 mls/hr WITH DIALYSIS PRN IV SBP <90 DURING DIALYSIS; Start 08/09/18 at 22:30 Sodium Chloride (NS) -To prime the dialy... DIRECTED FOR HD PRN IV HD; Start 08/09/18 at 22:30 Heparin Sodium (Porcine) (Heparin (1000 Units/ml)) 4,000 unit PER PROTOCOL PRN IV aPTT<47; Start 08/10/18 at 00:30 Heparin Sodium (Porcine) 250 ml @ 10 mls/hr PER PROTOCOL IV Last administered on 08/10/18at 00:54; Admin Dose 10 MLS/HR; Start 08/10/18 at 00:30 Insulin Aspart (Novolog Insulin Pen) NOVOLOG *MILD* ALGORITHM WITH MEALS BEDTIME SC ; Start 08/10/18 at 08:00 Miscellaneous Information 1 ea NOTE XX ; Start 08/10/18 at 03:00 Glucose (Glutose) 15 gm Q15M PRN PO DECREASED GLUCOSE; Start 08/10/18 at 03:00 Glucose (Glutose) 22.5 gm Q15M PRN PO DECREASED GLUCOSE; Start 08/10/18 at 03:00 Dextrose (D50w Syringe) 25 ml Q15M PRN IV DECREASED GLUCOSE; Start 08/10/18 at 03:00 Dextrose (D50w Syringe) 50 ml Q15M PRN IV DECREASED GLUCOSE; Start 08/10/18 at 03:00 Glucagon (Glucagen) 1 mg Q15M PRN IM DECREASED GLUCOSE; Start 08/10/18 at 03:00 Glucose (Glutose) 15 gm Q15M PRN BUCCAL DECREASED GLUCOSE; Start 08/10/18 at 03:00 PATRICIA VELARDE MD August 10, 2018 08:08
[2018-08-10] MEDS: FAMOTIDINE 20 MG INJ IV SCH (08:10)
[2018-08-10] MEDS: ASPIRIN 81 MG TAB PO SCH (08:17)
[2018-08-10] MEDS: INSULIN ASPART [NOVOLOG] 3 ML PEN SC SCH ×4 (08:17→21:00)
[2018-08-10] MEDS: ESCITALOPRAM 10 MG TAB PO SCH (08:17)
[2018-08-10] MEDS: POLYETHYLENE GLYCOL 17 GM PACKET PO SCH (08:18)
[2018-08-10] MEDS ORDERED: NIFEdipine (XL) 60 MG TAB PO SCH (09:00)
--- NOTE | 2018-08-10 11:25 | CONS ---
Assessment/Plan Assessment/Plan Hospital Course (Demo Recall) 1. Mildly abnormal troponin: Consistent with a false positive troponin. Patient repeat troponin before and after have been negative only one episode has been positive which is most likely secondary to a false positive troponin 2. Abnormal pancreatic enzyme level consistent with possible pancreatitis although subsequent level has been normalized 3. Renal failure on dialysis 4. Diabetes 5. Diabetic retinopathy and blindness 6. Hypertension Recommendation: I have stopped the heparin drip. GI work up and treatment as per internal medicine and possible GI consultants Dialysis as per renal consultants Continue with diabetic management as per internal medicine recommendations Aggressive risk factor modification We will check echocardiogram to evaluate for LV function and evaluate for the pericardial effusion Thank you for his referral. We will continue to follow along with you JAZ TAN MD [facility] Consultation Date/Type/Reason Admit Date/Time August 09, 2018 at 04:43 Date of Consultation: August 10, 2018 Type of Consult Cardiology Requesting Provider: VANCE ROSA Date/Time of Note DATE: 08/10/18 TIME: 11:17 Hx of Present Illness Interventional cardiology consultation note Chief complaint: abd pain Reason for consult: + trop History of present illness: Thank you for this referral. History was obtained from the patient discussion with the staff and physicians. This is a pleasant 32-year-old gentleman with history of diabetes over the past 20 years, renal failure on dialysis retinopathy, who came to emergency room mostly with complaint of lower abdominal pain. Patient second troponin was elevated at 1. Cardiology consultation was consulted. Troponin have been repeated since then and all have been negative. Denies any left-sided chest pain or pressure to me. Allergies: Benazepril Medications were reviewed as per medical reconciliation sheet Family history: Family with diabetes. No early coronary artery disease Social history: Active smoker Past medical history: As above mentioned. Renal failure on dialysis over the past 8 months followed up by Dr. Franklin. Diabetes, hypertension, retinopathy with eye blindness. 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24, 60 MG PO DAILY for 30 Days, TAB Prov:MIKE GIFFORD MD 07/24/18 Isosorbide Mononitrate* (Isosorbide Mononitrate*) 30 Mg Tab.er.24h, 30 MG PO DAILY for 30 Days Prov:MIKE GIFFORD MD 07/24/18 Atorvastatin* (Atorvastatin*) 40 Mg Tablet, 40 MG PO HS for 30 Days, TAB Prov:MIKE GIFFORD MD 07/24/18 Escitalopram Oxalate* (Escitalopram Oxalate*) 10 Mg Tablet, 10 MG PO DAILY for 30 Days, #30 TAB Prov:MIKE GIFFORD MD 07/24/18 Gabapentin* (Gabapentin*) 300 Mg Capsule, 300 MG PO QHS for 30 Days, #60 CAP Prov:MIKE GIFFORD MD 07/24/18 Furosemide* (Furosemide*) 40 Mg Tablet, 40 MG PO BID for 30 Days, TAB Prov:MIKE GIFFORD MD 07/24/18 Calcium Acetate* (Calcium Acetate*) 667 Mg Capsule, 2001 MG PO WITH MEALS for 28 Days, #30 CAP Prov:MIKE GIFFORD MD 07/24/18 Reported Medications Insulin Human Regular (Novolin-R U-100) 100 Unit/Ml Soln, 10 UNITS SC AC BREAKFAST, EA 08/10/18 Insulin Glargine* (Lantus*) 100 Unit/Ml Soln, 15 UNIT SC DAILY, #1 VIAL 08/10/18 Discontinued Reported Medications Ergocalciferol (Vitamin D2) (VITAMIN D2) 50,000 Unit Capsule, 38747 UNIT PO Q7D, CAP 07/10/18 Discontinued Scripts Hydrocodone Bit-Acetaminophen (Hydrocodone Bit-APAP) 5-325MG Tablet, 1 TAB PO Q6H PRN for .MOD PAIN 4-6 for 14 Days, TAB Prov:MIKE GIFFORD MD 07/24/18 Medications Current Medications Hydralazine HCl (Apresoline) 20 mg Q4H PRN IV ELEVATED BLOOD PRESSURE Last administered on 08/09/18at 20:51; Admin Dose 20 MG; Start 08/09/18 at 08:30 Morphine Sulfate (morphine) 2 mg Q2H PRN IV PAIN LEVEL 7-10 Last administered on 08/10/18at 01:40; Admin Dose 2 MG; Start 08/09/18 at 08:30 Aspirin (Aspirin) 81 mg DAILY PO ; Start 08/10/18 at 09:00 Atorvastatin Calcium (Lipitor) 40 mg HS PO Last administered on 08/09/18at 21:37; Admin Dose 40 MG; Start 08/09/18 at 21:00 Calcium Acetate (Phoslo) 2,001 mg WITH MEALS PO ; Start 08/09/18 at 18:00 Carvedilol (Coreg) 12.5 mg BID PO Last administered on 08/09/18at 21:37; Admin Dose 12.5 MG; Start 08/09/18 at 21:00 Escitalopram Oxalate (Lexapro) 10 mg DAILY PO ; Start 08/10/18 at 09:00 Gabapentin (Neurontin) 300 mg QHS PO Last administered on 08/09/18at 21:37; Admin Dose 300 MG; Start 08/09/18 at 21:00 Isosorbide Mononitrate (Imdur) 30 mg DAILY PO ; Start 08/10/18 at 09:00 Polyethylene Glycol (Miralax) 17 gm DAILY PO ; Start 08/10/18 at 09:00 IV Flush (NS 3 ml) 3 ml PER PROTOCOL IV ; Start 08/09/18 at 13:30 Metoclopramide HCl (Reglan) 5 mg Q6H PRN IV NAUSEA/VOMITING; Start 08/09/18 at 13:30 Acetaminophen (Tylenol Tab) 650 mg Q6H PRN PO .PAIN 1-3 OR TEMP; Start 08/09/18 at 13:30 Acetaminophen/ Hydrocodone Bitart ([place]y (5/325)) 1 tab Q6H PRN PO .MOD PAIN 4- 6; Start 08/09/18 at 13:30 Morphine Sulfate (morphine) 2 mg Q4H PRN IV .SEVERE PAIN 7-10 Last administered on 08/10/18at 08:10; Admin Dose 2 MG; Start 08/09/18 at 13:30 Docusate Sodium (Colace) 100 mg Q12H PRN PO .CONSTIPATION; Start 08/09/18 at 13:30 Magnesium Hydroxide (Milk Of Mag) 30 ml DAILY PRN PO .CONSTIPATION; Start 08/09/18 at 13:30 Famotidine (Pepcid Iv) 20 mg DAILY IV Last administered on 08/10/18at 08:10; Admin Dose 20 MG; Start 08/10/18 at 09:00 Sodium Chloride 1,000 ml @ 60 mls/hr [id number] IV Last administered on 08/09/18at 21:54; Admin Dose 75 MLS/HR; Start 08/09/18 at 13:20 Lorazepam (Ativan) 0.5 mg Q6H PRN IV ANXIETY; Start 08/09/18 at 13:30 Albuterol/ Ipratropium (Duoneb) 3 ml Q4H RESP THERAPY PRN HHN SHORTNESS OF BREATH; Start 08/09/18 at 13:00 Hydralazine HCl (Apresoline) 10 mg Q4H PRN IV ELEVATED BLOOD PRESSURE; Start 08/09/18 at 13:30 Nitroglycerin (Nitroglycerin (Sl Tab) 0.4 Mg) 1 tab Q5M PRN SL ANGINA Last administered on 08/09/18at 22:11; Admin Dose 1 TAB; Start 08/09/18 at 13:30 Enalaprilat (Vasotec Iv) 1.25 mg Q4H PRN IV ELEVATED BLOOD PRESSURE; Start 08/09/18 at 13:30 Labetalol HCl (Labetalol) 20 mg Q6H PRN IV ELEVATED BLOOD PRESSURE; Start 08/09/18 at 13:30 Ondansetron HCl 8 mg/Sodium Chloride 54 ml @ 216 mls/hr Q6H PRN IV NAUSEA AND /OR VOMITING; Start 08/09/18 at 14:00 Nifedipine (Procardia Xl) 60 mg BID PO ; Start 08/10/18 at 09:00 Heparin Sodium (Porcine) (Heparin (1000 Units/ml)) 4,000 unit AFTER DIALYSIS CATHETER ; Start 08/09/18 at 22:30 Albumin Human 100 ml @ 100 mls/hr WITH DIALYSIS PRN IV SBP <90 DURING DIALYSIS; Start 08/09/18 at 22:30 Sodium Chloride (NS) -To prime the dialy... DIRECTED FOR HD PRN IV HD; Start 08/09/18 at 22:30 Insulin Aspart (Novolog Insulin Pen) NOVOLOG *MILD* ALGORITHM WITH MEALS BEDTIM E SC Last administered on 08/10/18at 08:17; Admin Dose 1 UNIT; Start 08/10/18 at 08:00 Miscellaneous Information 1 ea NOTE XX ; Start 08/10/18 at 03:00 Glucose (Glutose) 15 gm Q15M PRN PO DECREASED GLUCOSE; Start 08/10/18 at 03:00 Glucose (Glutose) 22.5 gm Q15M PRN PO DECREASED GLUCOSE; Start 08/10/18 at 03:00 Dextrose (D50w Syringe) 25 ml Q15M PRN IV DECREASED GLUCOSE; Start 08/10/18 at 03:00 Dextrose (D50w Syringe) 50 ml Q15M PRN IV DECREASED GLUCOSE; Start 08/10/18 at 03:00 Glucagon (Glucagen) 1 mg Q15M PRN IM DECREASED GLUCOSE; Start 08/10/18 at 03:00 Glucose (Glutose) 15 gm Q15M PRN BUCCAL DECREASED GLUCOSE; Start 08/10/18 at 03:00 Allergies: Coded Allergies: benazepril (Verified Allergy, Unknown, 08/09/18) Past Surgical History Past Surgical Hx: appendectomy, cholecystectomy, other (Permacath for HD access ) Social History Alcohol Use: none Smoking Status: Current every day smoker Drug Use: other ([place]) Exam/Review of Systems Vital Signs Vitals Vital Signs Date Temp Pulse Resp B/P (MAP) Pulse Ox O2 O2 Flow FiO2 Time Delivery Rate 08/10/18 83 08:00 08/10/18 98.6 20 108/58 94 Room Air 07:29 (75) Intake and Output 08/09/18 08/09/18 08/10/18 1515:00 23:00 07:00 IntakeIntake Total 500 ml 775 ml BalanceBalance 500 ml 775 ml Exam Exam General: no acute distress HEENT: NC/AT. Left eye closed and blind. NECK: NO JVD. no stridor. CV: RRR. systolic murmur; no gallop or rubs. PULM: no wheezing or rhonchi. GI: SOFT, NT, ND, no rebound or guarding Extremity: trace B/L LE edema. no clubbing. neuro: awake and alert, OX3. Psych: calm and pleasant rectal: deferred EKG was personally reviewed showed normal sinus rhythm. No evidence of ischemia CT pulmonary angiogram done in the emergency room shows: 1. No evidence of aortic aneurysm or dissection. 2. No central pulmonary emboli. 3. Prominent central pulmonary arteries and rule out pulmonary arterial hypertension. No right heart strain/failure. 4. Mild cardiomegaly with minimal pericardial effusion maximal depth 3 mm. 5. No evidence of pleural effusions, pneumothorax acute lung infiltrates or thoracic lymphadenopathy. 6. Status post prior cholecystectomy. No biliary ductal dilation. 7. No calcified urinary calculi obstructive uropathy. Stable mild perirenal stranding / induration of previous inflammatory changes. 8. Diverticulosis of the sigmoid colon without diverticulitis. 9. Status post prior appendectomy. 10. Stable abdominal wall subcutaneous nodules and soft tissue density left anterior abdominal wall. Labs Result Diagram: 08/10/18 0550 08/10/18 0549 Results 24hrs Laboratory Tests Test 08/09/18 22:03 08/09/18 23:50 08/10/18 01:01 08/10/18 01:56 Creatine Kinase 72 Creatine Kinase 4.4 Index Creatinine Kinase MB 3.19 H (Mass) Troponin I 1.140 *H 0.020 Activated 26.7 Partial Thromboplast Time Bedside Glucose 179 Test 08/10/18 05:49 08/10/18 05:50 08/10/18 05:51 08/10/18 07:17 Sodium Level 139 Potassium Level 5.9 H Chloride Level 100 Carbon Dioxide Level 26 Anion Gap 13 Blood Urea Nitrogen 59 H Creatinine 11.19 H Est Glomerular 5 L Filtrat Rate mL/min Glucose Level 152 # Calcium Level 8.5 Phosphorus Level 9.4 H Magnesium Level 2.3 White Blood Count 9.5 # Red Blood Count 3.35 L Hemoglobin 10.2 L Hematocrit 31.6 L Mean Corpuscular 94.3 Volume Mean Corpuscular 30.4 Hemoglobin Mean Corpuscular 32.3 Hemoglobin Concent Red Cell 13.8 Distribution Width Platelet Count 201 Mean Platelet Volume 12.3 H Immature 0.400 Granulocytes % Neutrophils % 72.4 Lymphocytes % 15.3 Monocytes % 7.5 Eosinophils % 3.7 Basophils % 0.7 Nucleated Red Blood 0.0 Cells % Immature 0.040 H Granulocytes # Neutrophils # 6.9 Lymphocytes # 1.5 Monocytes # 0.7 Eosinophils # 0.4 Basophils # 0.1 Nucleated Red Blood 0.0 Cells # Hemoglobin A1c 8.1 H Lipase 134 Triglycerides Level 297 H Cholesterol Level 144 LDL Cholesterol, 63 Calculated HDL Cholesterol 22 L Cholesterol/HDL 6.5 Ratio Thyroid Stimulating 2.950 Hormone (TSH) Activated 33.2 Partial Thromboplast Time Test 08/10/18 07:40 08/10/18 09:18 Bedside Glucose 179 Creatine Kinase 69 Creatine Kinase 5.2 Index Creatinine Kinase MB 3.58 H (Mass) Troponin I < 0.012 Medications Medications Current Medications Hydralazine HCl (Apresoline) 20 mg Q4H PRN IV ELEVATED BLOOD PRESSURE Last administered on 08/09/18at 20:51; Admin Dose 20 MG; Start 08/09/18 at 08:30 Morphine Sulfate (morphine) 2 mg Q2H PRN IV PAIN LEVEL 7-10 Last administered on 08/10/18at 01:40; Admin Dose 2 MG; Start 08/09/18 at 08:30 Aspirin (Aspirin) 81 mg DAILY PO ; Start 08/10/18 at 09:00 Atorvastatin Calcium (Lipitor) 40 mg HS PO Last administered on 08/09/18at 21:37; Admin Dose 40 MG; Start 08/09/18 at 21:00 Calcium Acetate (Phoslo) 2,001 mg WITH MEALS PO ; Start 08/09/18 at 18:00 Carvedilol (Coreg) 12.5 mg BID PO Last administered on 08/09/18at 21:37; Admin Dose 12.5 MG; Start 08/09/18 at 21:00 Escitalopram Oxalate (Lexapro) 10 mg DAILY PO ; Start 08/10/18 at 09:00 Gabapentin (Neurontin) 300 mg QHS PO Last administered on 08/09/18at 21:37; Admin Dose 300 MG; Start 08/09/18 at 21:00 Isosorbide Mononitrate (Imdur) 30 mg DAILY PO ; Start 08/10/18 at 09:00 Polyethylene Glycol (Miralax) 17 gm DAILY PO ; Start 08/10/18 at 09:00 IV Flush (NS 3 ml) 3 ml PER PROTOCOL IV ; Start 08/09/18 at 13:30 Metoclopramide HCl (Reglan) 5 mg Q6H PRN IV NAUSEA/VOMITING; Start 08/09/18 at 13:30 Acetaminophen (Tylenol Tab) 650 mg Q6H PRN PO .PAIN 1-3 OR TEMP; Start 08/09/18 at 13:30 Acetaminophen/ Hydrocodone Bitart ([place]y (5/325)) 1 tab Q6H PRN PO .MOD PAIN 4- 6; Start 08/09/18 at 13:30 Morphine Sulfate (morphine) 2 mg Q4H PRN IV .SEVERE PAIN 7-10 Last administered on 08/10/18at 08:10; Admin Dose 2 MG; Start 08/09/18 at 13:30 Docusate Sodium (Colace) 100 mg Q12H PRN PO .CONSTIPATION; Start 08/09/18 at 13:30 Magnesium Hydroxide (Milk Of Mag) 30 ml DAILY PRN PO .CONSTIPATION; Start 08/09/18 at 13:30 Famotidine (Pepcid Iv) 20 mg DAILY IV Last administered on 08/10/18at 08:10; Admin Dose 20 MG; Start 08/10/18 at 09:00 Sodium Chloride 1,000 ml @ 60 mls/hr [id number] IV Last administered on 08/09/18at 21:54; Admin Dose 75 MLS/HR; Start 08/09/18 at 13:20 Lorazepam (Ativan) 0.5 mg Q6H PRN IV ANXIETY; Start 08/09/18 at 13:30 Albuterol/ Ipratropium (Duoneb) 3 ml Q4H RESP THERAPY PRN HHN SHORTNESS OF BREATH; Start 08/09/18 at 13:00 Hydralazine HCl (Apresoline) 10 mg Q4H PRN IV ELEVATED BLOOD PRESSURE; Start 08/09/18 at 13:30 Nitroglycerin (Nitroglycerin (Sl Tab) 0.4 Mg) 1 tab Q5M PRN SL ANGINA Last administered on 08/09/18at 22:11; Admin Dose 1 TAB; Start 08/09/18 at 13:30 Enalaprilat (Vasotec Iv) 1.25 mg Q4H PRN IV ELEVATED BLOOD PRESSURE; Start 08/09/18 at 13:30 Labetalol HCl (Labetalol) 20 mg Q6H PRN IV ELEVATED BLOOD PRESSURE; Start 08/09/18 at 13:30 Ondansetron HCl 8 mg/Sodium Chloride 54 ml @ 216 mls/hr Q6H PRN IV NAUSEA AND/OR VOMITING; Start 08/09/18 at 14:00 Nifedipine (Procardia Xl) 60 mg BID PO ; Start 08/10/18 at 09:00 Heparin Sodium (Porcine) (Heparin (1000 Units/ml)) 4,000 unit AFTER DIALYSIS CATHETER ; Start 08/09/18 at 22:30 Albumin Human 100 ml @ 100 mls/hr WITH DIALYSIS PRN IV SBP <90 DURING DIALYSIS; Start 08/09/18 at 22:30 Sodium Chloride (NS) -To prime the dialy... DIRECTED FOR HD PRN IV HD; Start 08/09/18 at 22:30 Insulin Aspart (Novolog Insulin Pen) NOVOLOG *MILD* ALGORITHM WITH MEALS BEDTIME SC Last administered on 08/10/18at 08:17; Admin Dose 1 UNIT; Start 08/10/18 at 08:00 Miscellaneous Information 1 ea NOTE XX ; Start 08/10/18 at 03:00 Glucose (Glutose) 15 gm Q15M PRN PO DECREASED GLUCOSE; Start 08/10/18 at 03:00 Glucose (Glutose) 22.5 gm Q15M PRN PO DECREASED GLUCOSE; Start 08/10/18 at 03:00 Dextrose (D50w Syringe) 25 ml Q15M PRN IV DECREASED GLUCOSE; Start 08/10/18 at 03:00 Dextrose (D50w Syringe) 50 ml Q15M PRN IV DECREASED GLUCOSE; Start 08/10/18 at 03:00 Glucagon (Glucagen) 1 mg Q15M PRN IM DECREASED GLUCOSE; Start 08/10/18 at 03:00 Glucose (Glutose) 15 gm Q15M PRN BUCCAL DECREASED GLUCOSE; Start 08/10/18 at 03:00 JAZ TAN MD August 10, 2018 11:25
--- NOTE | 2018-08-10 15:19 | PN ---
Date/Time of Note Date/Time of Note DATE: 08/10/18 TIME: 15:09 Assessment/Plan VTE Prophylaxis Risk score (from Ns)>0 risk: 2 SCD applied (from Ns): No SCD contraindicated: other Pharmacological prophylaxis: heparin Lines/Catheters [facility] perm[facility] Assessment/Plan Hospital Course S: Patient denies abdominal pain presently, but apparently had some earlier this morning. Seen by cardiology team for possible elevated troponin, although this was thought to be now lab error and now is off heparin drip after he was started earlier this morning. Seen by renal team yesterday as well, awaiting dialysis for later today. O: VS - see below PE: Gen: Lying in bed Head: Atraumatic Eyes: Normal Conjunctiva. Blind in left eye. ENT: Dry mucous membranes. Normal External Ears, Nose and Mouth. Neck: Full range of motion. No meningismus. Resp: Clear to auscultation bilaterally Cardio: Regular rate and rhythm, no murmurs. Abd: Soft, left upper quadrant and epigastric tenderness to palpation. Normal bowel sounds Back: Left thoracic paraspinal muscle tenderness is less now. Less left CVA tenderness. Ext: No cyanosis, or edema Neuro: Awake and alert Assessment and plan: 32-year-old male presenting with left upper quadrant pain signs of acute pharyngitis, prior history of incisional disease on dialysis, hypertension, marijuana use. #Pancreatitis: Again patient with presents with abdominal pain more acute for the last 3 to 4 days. Lipase 3369 on admission, now down to normal ranges this morning. -Start patient on diet now, continue low-dose half-normal saline IV fluids unless otherwise indicated by renal team, antiemetic medications -Consider GI consult if his symptoms worsen. #Hypertensive urgency: Resolved now. Systolic blood pressure was in the 190-220 range on admission -Monitor, continue current p.o. blood pressure medicines as well as labetalol IV, hydralazine IV, and Vasotec IV all as needed systolic greater than 160 #End-stage renal disease: On dialysis as outpatient -We will continue dialysis as inpatient follow-up further recommendations from renal consult -Case management is also attempting to set up a new outpatient dialysis center for the patient since he has been noncompliant with his current one #Prior history of marijuana use: -Follow-up drug screen, monitor for signs of withdrawal, counseled on cessation Result Diagram: 08/10/18 0550 08/10/18 0549 Results 24hrs Laboratory Tests Test 08/09/18 22:03 08/09/18 23:50 08/10/18 01:01 08/10/18 01:56 Creatine Kinase 72 Creatine Kinase 4.4 Index Creatinine Kinase MB 3.19 H (Mass) Troponin I 1.140 *H 0.020 Activated 26.7 Partial Thromboplast Time Bedside Glucose 179 Test 08/10/18 05:49 08/10/18 05:50 08/10/18 05:51 08/10/18 07:17 Sodium Level 139 Potassium Level 5.9 H Chloride Level 100 Carbon Dioxide Level 26 Anion Gap 13 Blood Urea Nitrogen 59 H Creatinine 11.19 H Est Glomerular 5 L Filtrat Rate mL/min Glucose Level 152 # Calcium Level 8.5 Phosphorus Level 9.4 H Magnesium Level 2.3 White Blood Count 9.5 # Red Blood Count 3.35 L Hemoglobin 10.2 L Hematocrit 31.6 L Mean Corpuscular 94.3 Volume Mean Corpuscular 30.4 Hemoglobin Mean Corpuscular 32.3 Hemoglobin Concent Red Cell 13.8 Distribution Width Platelet Count 201 Mean Platelet Volume 12.3 H Immature 0.400 Granulocytes % Neutrophils % 72.4 Lymphocytes % 15.3 Monocytes % 7.5 Eosinophils % 3.7 Basophils % 0.7 Nucleated Red Blood 0.0 Cells % Immature 0.040 H Granulocytes # Neutrophils # 6.9 Lymphocytes # 1.5 Monocytes # 0.7 Eosinophils # 0.4 Basophils # 0.1 Nucleated Red Blood 0.0 Cells # Hemoglobin A1c 8.1 H Lipase 134 Triglycerides Level 297 H Cholesterol Level 144 LDL Cholesterol, 63 Calculated HDL Cholesterol 22 L Cholesterol/HDL 6.5 Ratio Thyroid Stimulating 2.950 Hormone (TSH) Activated 33.2 Partial Thromboplast Time Test 08/10/18 07:40 08/10/18 09:18 08/10/18 11:45 Bedside Glucose 179 182 Creatine Kinase 69 Creatine Kinase 5.2 Index Creatinine Kinase MB 3.58 H (Mass) Troponin I < 0.012 Exam/Review of Systems Exam Vitals Vital Signs Date Temp Pulse Resp B/P (MAP) Pulse Ox O2 O2 Flow FiO2 Time Delivery Rate 08/10/18 98.1 78 20 133/68 98 Room Air 12:17 (89) Intake and Output 08/09/18 08/09/18 08/10/18 1515:00 23:00 07:00 IntakeIntake Total 500 ml 775 ml BalanceBalance 500 ml 775 ml Results Results 24hrs Laboratory Tests Test 08/09/18 22:03 08/09/18 23:50 08/10/18 01:01 08/10/18 01:56 Creatine Kinase 72 Creatine Kinase 4.4 Index Creatinine Kinase MB 3.19 H (Mass) Troponin I 1.140 *H 0.020 Activated 26.7 Partial Thromboplast Time Bedside Glucose 179 Test 08/10/18 05:49 08/10/18 05:50 08/10/18 05:51 08/10/18 07:17 Sodium Level 139 Potassium Level 5.9 H Chloride Level 100 Carbon Dioxide Level 26 Anion Gap 13 Blood Urea Nitrogen 59 H Creatinine 11.19 H Est Glomerular 5 L Filtrat Rate mL/min Glucose Level 152 # Calcium Level 8.5 Phosphorus Level 9.4 H Magnesium Level 2.3 White Blood Count 9.5 # Red Blood Count 3.35 L Hemoglobin 10.2 L Hematocrit 31.6 L Mean Corpuscular 94.3 Volume Mean Corpuscular 30.4 Hemoglobin Mean Corpuscular 32.3 Hemoglobin Concent Red Cell 13.8 Distribution Width Platelet Count 201 Mean Platelet Volume 12.3 H Immature 0.400 Granulocytes % Neutrophils % 72.4 Lymphocytes % 15.3 Monocytes % 7.5 Eosinophils % 3.7 Basophils % 0.7 Nucleated Red Blood 0.0 Cells % Immature 0.040 H Granulocytes # Neutrophils # 6.9 Lymphocytes # 1.5 Monocytes # 0.7 Eosinophils # 0.4 Basophils # 0.1 Nucleated Red Blood 0.0 Cells # Hemoglobin A1c 8.1 H Lipase 134 Triglycerides Level 297 H Cholesterol Level 144 LDL Cholesterol, 63 Calculated HDL Cholesterol 22 L Cholesterol/HDL 6.5 Ratio Thyroid Stimulating 2.950 Hormone (TSH) Activated 33.2 Partial Thromboplast Time Test 08/10/18 07:40 08/10/18 09:18 08/10/18 11:45 Bedside Glucose 179 182 Creatine Kinase 69 Creatine Kinase 5.2 Index Creatinine Kinase MB 3.58 H (Mass) Troponin I < 0.012 Medications Medication Current Medications Hydralazine HCl (Apresoline) 20 mg Q4H PRN IV ELEVATED BLOOD PRESSURE Last administered on 08/09/18at 20:51; Admin Dose 20 MG; Start 08/09/18 at 08:30 Morphine Sulfate (morphine) 2 mg Q2H PRN IV PAIN LEVEL 7-10 Last administered on 08/10/18at 01:40; Admin Dose 2 MG; Start 08/09/18 at 08:30 Aspirin (Aspirin) 81 mg DAILY PO ; Start 08/10/18 at 09:00 Atorvastatin Calcium (Lipitor) 40 mg HS PO Last administered on 08/09/18at 21:37; Admin Dose 40 MG; Start 08/09/18 at 21:00 Calcium Acetate (Phoslo) 2,001 mg WITH MEALS PO ; Start 08/09/18 at 18:00 Carvedilol (Coreg) 12.5 mg BID PO Last administered on 08/09/18 21:37; Admin Dose 12.5 MG; Start 08/09/18 at 21:00 Escitalopram Oxalate (Lexapro) 10 mg DAILY PO ; Start 08/10/18 at 09:00 Gabapentin (Neurontin) 300 mg QHS PO Last administered on 08/09/18at 21:37; Admin Dose 300 MG; Start 08/09/18 at 21:00 Isosorbide Mononitrate (Imdur) 30 mg DAILY PO ; Start 08/10/18 at 09:00 Polyethylene Glycol (Miralax) 17 gm DAILY PO ; Start 08/10/18 at 09:00 IV Flush (NS 3 ml) 3 ml PER PROTOCOL IV ; Start 08/09/18 at 13:30 Metoclopramide HCl (Reglan) 5 mg Q6H PRN IV NAUSEA/VOMITING; Start 08/09/18 at 13:30 Acetaminophen (Tylenol Tab) 650 mg Q6H PRN PO .PAIN 1-3 OR TEMP; Start 08/09/18 at 13:30 Acetaminophen/ Hydrocodone Bitart ([place] (5/325)) 1 tab Q6H PRN PO .MOD PAIN 4- 6; Start 08/09/18 at 13:30 Morphine Sulfate (morphine) 2 mg Q4H PRN IV .SEVERE PAIN 7-10 Last administered on 08/10/18 08:10; Admin Dose 2 MG; Start 08/09/18 at 13:30 Docusate Sodium (Colace) 100 mg Q12H PRN PO .CONSTIPATION; Start 08/09/18 at 13:30 Magnesium Hydroxide (Milk Of Mag) 30 ml DAILY PRN PO .CONSTIPATION; Start 08/09/18 at 13:30 Famotidine (Pepcid Iv) 20 mg DAILY IV Last administered on 08/10/18at 08:10; Admin Dose 20 MG; Start 08/10/18 at 09:00 Sodium Chloride 1,000 ml @ 60 mls/hr [id number] IV Last administered on 08/09/18at 21:54; Admin Dose 75 MLS/HR; Start 08/09/18 at 13:20 Lorazepam (Ativan) 0.5 mg Q6H PRN IV ANXIETY; Start 08/09/18 at 13:30 Albuterol/ Ipratropium (Duoneb) 3 ml Q4H RESP THERAPY PRN HHN SHORTNESS OF BREATH; Start 08/09/18 at 13:00 Hydralazine HCl (Apresoline) 10 mg Q4H PRN IV ELEVATED BLOOD PRESSURE; Start 08/09/18 at 13:30 Nitroglycerin (Nitroglycerin (Sl Tab) 0.4 Mg) 1 tab Q5M PRN SL ANGINA Last administered on 08/09/18at 22:11; Admin Dose 1 TAB; Start 08/09/18 at 13:30 Enalaprilat (Vasotec Iv) 1.25 mg Q4H PRN IV ELEVATED BLOOD PRESSURE; Start 08/09/18 at 13:30 Labetalol HCl (Labetalol) 20 mg Q6H PRN IV ELEVATED BLOOD PRESSURE; Start 08/09/18 at 13:30 Ondansetron HCl 8 mg/Sodium Chloride 54 ml @ 216 mls/hr Q6H PRN IV NAUSEA AND/OR VOMITING; Start 08/09/18 at 14:00 Nifedipine (Procardia Xl) 60 mg BID PO ; Start 08/10/18 at 09:00 Heparin Sodium (Porcine) (Heparin (1000 Units/ml)) 4,000 unit AFTER DIALYSIS CATHETER ; Start 08/09/18 at 22:30 Albumin Human 100 ml @ 100 mls/hr WITH DIALYSIS PRN IV SBP <90 DURING DIALYSIS; Start 08/09/18 at 22:30 Sodium Chloride (NS) -To prime the dialy... DIRECTED FOR HD PRN IV HD; Start 08/09/18 at 22:30 Insulin Aspart (Novolog Insulin Pen) NOVOLOG *MILD* ALGORITHM WITH MEALS BEDTIME SC Last administered on 08/10/18at 11:49; Admin Dose 2 UNIT; Start 08/10/18 at 08:00 Miscellaneous Information 1 ea NOTE XX ; Start 08/10/18 at 03:00 Glucose (Glutose) 15 gm Q15M PRN PO DECREASED GLUCOSE; Start 08/10/18 at 03:00 Glucose (Glutose) 22.5 gm Q15M PRN PO DECREASED GLUCOSE; Start 08/10/18 at 03:00 Dextrose (D50w Syringe) 25 ml Q15M PRN IV DECREASED GLUCOSE; Start 08/10/18 at 03:00 Dextrose (D50w Syringe) 50 ml Q15M PRN IV DECREASED GLUCOSE; Start 08/10/18 at 03:00 Glucagon (Glucagen) 1 mg Q15M PRN IM DECREASED GLUCOSE; Start 08/10/18 at 03:00 Glucose (Glutose) 15 gm Q15M PRN BUCCAL DECREASED GLUCOSE; Start 08/10/18 at 03:00 VANCE ROSA August 10, 2018 15:19
[2018-08-10] MEDS: SOD CHLORIDE 0.45% 1,000 ML IV SCH (16:04)
--- NOTE | 2018-08-10 17:40 | RADRPT ---
Echocardiogram Report Patient Name: RITA ORTEGAPatient ID: [id number] : 1985 (32y 8m)Study Date: 08/10/2018 1:29:33 PM Gender: MAccession #: [id number] Tech: TESS Location: Ref.Physician: JAZ VYAS Height(Cm): 188 BSA: 2.25Weight(Kg): 96.6 Quality: Technically Difficult StudyAccount #: Procedures: Echocardiographic Report: Transthoracic echocardiogram with 2D, M-Mode, and Doppler examination, poor subcostal images. Indications: Evaluate Left Ventricular function, positive troponins. Measurements: 2D/M Mode Doppler Measurement Value Normal Range Measurement Value Normal Range LVIDd 2D 4.5 [ 4.2 - 5.8 ] cm AV Peak Reinaldo 1.3 [ 100.0 - 170.0 ] cm/se c LVIDs 2D 2.9 [ 2.5 - 4.0 ] cm AV Peak PG 7.0 [ 2.0 - 9.0 ] mmHg LVPWd 2D 1.6 [ 0.6 - 1.0 ] cm LVOT Peak Reinaldo 1.0 [ 70.0 - 110.0 ] cm/sec IVSd 2D 1.5 [ 0.6 - 1.0 ] cm LVOT Peak PG 4.0 [ 2.0 - 6.0 ] mmHg AoR Diam 2D 3.0 [ 2.6 - 3.4 ] cm MV E Peak Reinaldo 0.9 [ 60.0 - 130.0 ] cm/sec EDV 2D 93.4 [ 62.0 - 150.0 ] ml MV A Peak Reinaldo 0.5 [ 100.0 - 120.0 ] cm/se c ESV 2D 33.0 [ 21.0 - 61.0 ] ml MV E/A 1.7 [ 0.8 - 1.5 ] ratio EF 2D 64.7 [ 52.0 - 72.0 ] percent MV PHT 54.0 [ 20.0 - 100.0 ] msec LA Dimen 2D 4.2 [ 3.0 - 4.0 ] cm MV Decel Time 185 [ 104 - 258 ] msec MV Decel O'[place] 5 Lat E` Reinaldo 0.1 [ 10.0 - 15.0 ] cm/sec Lateral E/E` 16.5 [ 1.0 - 2.0 ] ratio Med E` Reinaldo 0.1 cm/sec MV E/A 1.7 [ 0.8 - 1.5 ] ratio MVA PHT 4.1 [ 2.0 - 4.0 ] cm2 TR Peak Reinaldo 2.7 [ 100.0 - 280.0 ] cm/se c TR Peak PG 29.0 mmHg PV Peak Reianldo 1.0 [ 40.0 - 80.0 ] cm/sec PV Peak PG 4.0 mmHg RVSP 39.0 [ 10.0 - 36.0 ] mmHg RA Pressure 10.0 mmHg Findings: Left Ventricle: Lower limits of normal systolic function, however not all wall imaged well. Normal left ventricular cavity size. Moderate concentric left ventricular hypertrophy. Ejection fraction is visually estimated at 55 %. Abnormal Diastolic Function. E/E'= 17. Right Ventricle: Normal right ventricular size. Left Atrium: There is mild enlargement of left atrium. Right Atrium: The right atrium is normal in size. Atrial Septum: Not well visualized. Mitral Valve: Normal appearance and function of the mitral valve with trace physiologic regurgitation. Aortic Valve: No significant aortic stenosis or insufficiency. Normal trileaflet aortic valve structure. Tricuspid Valve: Normal appearance of the tricuspid valve. Estimated peak PA systolic pressure 39 mmHg. There is trace to mild tricuspid regurgitation. Pulmonic Valve: Normal pulmonic valve appearance. No evidence of pulmonic regurgitation. Pericardium: Normal pericardium with no significant pericardial effusion. Aorta: Normal aortic root. IVC: Normal size and normal respiratory collapse consistent with normal right atrial pressure. Pulmonary Artery: Normal pulmonary artery size. Conclusions: Lower limits of normal systolic function, however not all wall imaged well. Normal left ventricular cavity size. Moderate concentric left ventricular hypertrophy. Ejection fraction is visually estimated at 55 %. Abnormal Diastolic Function. E/E'= 17. Normal appearance and function of the mitral valve with trace physiologic regurgitation. No significant aortic stenosis or insufficiency. Normal trileaflet aortic valve structure. Normal appearance of the tricuspid valve. Estimated peak PA systolic pressure 39 mmHg. There is trace to mild tricuspid regurgitation. Electronically Signed By: Jaz Vyas 2018-08-10 17:40:12 PDT
[2018-08-10] MEDS: ATORVASTATIN 40 MG TAB PO SCH (21:38)
[2018-08-10] MEDS: GABAPENTIN 300 MG CAP PO SCH (21:38)
[2018-08-11] VITALS: BP 182/96; PULSE 82; PULSE 89; RESP 18
[2018-08-11] MEDS: hydrALAzine 20 MG INJ IV PRN (00:59)
[2018-08-11] MEDS: morphine 2 MG INJ IV PRN ×2 (00:59→08:50)
[2018-08-11 04:00] VITALS: BP 155/74; PULSE 84; PULSE 88; RESP 18
[2018-08-11 07:06] VITALS: BP 160/81; PULSE 81; RESP 20
[2018-08-11 08:32] VITALS: PULSE 83
[2018-08-11] MEDS: CALCIUM ACETATE 667 MG CAP PO SCH ×2 (08:49→11:50)
[2018-08-11] MEDS: ESCITALOPRAM 10 MG TAB PO SCH (08:49)
[2018-08-11] MEDS: NIFEdipine (XL) 60 MG TAB PO SCH (08:49)
[2018-08-11] MEDS: ISOSORBIDE MONONITRATE(SR)30 MG TAB PO SCH (08:49)
[2018-08-11] MEDS: FAMOTIDINE 20 MG INJ IV SCH (08:50)
[2018-08-11] MEDS: ASPIRIN 81 MG TAB PO SCH (08:50)
[2018-08-11] MEDS: POLYETHYLENE GLYCOL 17 GM PACKET PO SCH (08:51)
[2018-08-11] MEDS: INSULIN ASPART [NOVOLOG] 3 ML PEN SC SCH ×2 (09:29→11:55)
--- NOTE | 2018-08-11 10:11 | CONS ---
Assessment/Plan Assessment/Plan Assessment/Plan (Daily) 1. acute hyperkalemia due to missed HD 2. HTN Urgency 3. ESRD on HD TTS schedule, pt missed his HD today 4. H/O HTN 5. H/o HL 6. H/o marajuana Use Plan: HD ordered for tomorrow if pt stays here Conitnue Nifedipine XL 60mg PO BID, IV Hydralazine pnr SBP more than 150 mm Hg, now BP in systolic 170s pt regular schedule for HD is Sat, Thus,Saturday, His Umbrella Cutter is Dr. Ma but he requested to see Different Primary MD and different mortgage analyst next HD will be on will follow up Consultation Date/Type/Reason Admit Date/Time August 09, 2018 at 04:43 Initial Consult Date 08/09/18 Type of Consult NEPHROLOGY Requesting Provider: VANCE ROSA Date/Time of Note DATE: 08/11/18 TIME: 10:11 Exam/Review of Systems Exam Vitals Vital Signs Date Temp Pulse Resp B/P (MAP) Pulse Ox O2 O2 Flow FiO2 Time Delivery Rate 08/11/18 83 08:32 08/11/18 97.9 20 160/81 95 07:06 (107) 08/11/18 Room Air 04:00 Intake and Output 08/10/18 08/10/18 08/11/18 1515:00 23:00 07:00 IntakeIntake Total 725 ml 300 ml OutputOutput Total 200 ml BalanceBalance 525 ml 300 ml Results Result Diagram: 08/11/18 0530 08/11/18 0530 Results 24hrs Laboratory Tests Test 08/10/18 11:45 08/10/18 17:36 08/10/18 21:37 08/11/18 05:30 Bedside Glucose 182 134 180 White Blood Count 7.1 # Red Blood Count 3.34 L Hemoglobin 10.2 L Hematocrit 31.3 L Mean Corpuscular 93.7 Volume Mean Corpuscular 30.5 Hemoglobin Mean Corpuscular 32.6 Hemoglobin Concent Red Cell 13.8 Distribution Width Platelet Count 191 Mean Platelet Volume 12.4 H Immature 0.400 Granulocytes % Neutrophils % 67.3 Lymphocytes % 16.4 Monocytes % 10.5 Eosinophils % 4.3 Basophils % 1.1 Nucleated Red Blood 0.0 Cells % Immature 0.030 Granulocytes # Neutrophils # 4.8 Lymphocytes # 1.2 Monocytes # 0.8 Eosinophils # 0.3 Basophils # 0.1 Nucleated Red Blood 0.0 Cells # Sodium Level 141 Potassium Level 4.9 Chloride Level 102 Carbon Dioxide Level 29 Anion Gap 10 Blood Urea Nitrogen 37 #H Creatinine 8.68 #H Est Glomerular 7 L Filtrat Rate mL/min Glucose Level 172 Calcium Level 8.2 L Test 08/11/18 07:45 Bedside Glucose 176 Medications Medication Current Medications Hydralazine HCl (Apresoline) 20 mg Q4H PRN IV ELEVATED BLOOD PRESSURE Last administered on 08/11/18 00:59; Admin Dose 20 MG; Start 08/09/18 at 08:30 Morphine Sulfate (morphine) 2 mg Q2H PRN IV PAIN LEVEL 7-10 Last administered on 08/11/18 08:50; Admin Dose 2 MG; Start 08/09/18 at 08:30 Aspirin (Aspirin) 81 mg DAILY PO Last administered on 08/11/18 08:50; Admin Dose 81 MG; Start 08/10/18 at 09:00 Atorvastatin Calcium (Lipitor) 40 mg HS PO Last administered on 08/10/18 21:38; Admin Dose 40 MG; Start 08/09/18 at 21:00 Calcium Acetate (Phoslo) 2,001 mg WITH MEALS PO Last administered on 08/11/18 08:49; Admin Dose 2,001 MG; Start 08/09/18 at 18:00 Carvedilol (Coreg) 12.5 mg BID PO Last administered on 08/11/18 08:49; Admin Dose 12.5 MG; Start 08/09/18 at 21:00 Escitalopram Oxalate (Lexapro) 10 mg DAILY PO Last administered on 08/11/18 08:49; Admin Dose 10 MG; Start 08/10/18 at 09:00 Gabapentin (Neurontin) 300 mg QHS PO Last administered on 08/10/18 21:38; Admin Dose 300 MG; Start 08/09/18 at 21:00 Isosorbide Mononitrate (Imdur) 30 mg DAILY PO Last administered on 08/11/18 08:49; Admin Dose 30 MG; Start 08/10/18 at 09:00 Polyethylene Glycol (Miralax) 17 gm DAILY PO ; Start 08/10/18 at 09:00 IV Flush (NS 3 ml) 3 ml PER PROTOCOL IV ; Start 08/09/18 at 13:30 Metoclopramide HCl (Reglan) 5 mg Q6H PRN IV NAUSEA/VOMITING; Start 08/09/18 at 13:30 Acetaminophen (Tylenol Tab) 650 mg Q6H PRN PO .PAIN 1-3 OR TEMP; Start 08/09/18 at 13:30 Acetaminophen/ Hydrocodone Bitart ([place] (5/325)) 1 tab Q6H PRN PO .MOD PAIN 4- 6; Start 08/09/18 at 13:30 Morphine Sulfate (morphine) 2 mg Q4H PRN IV .SEVERE PAIN 7-10 Last administered on 08/10/18at 21:39; Admin Dose 2 MG; Start 08/09/18 at 13:30 Docusate Sodium (Colace) 100 mg Q12H PRN PO .CONSTIPATION; Start 08/09/18 at 13:30 Magnesium Hydroxide (Milk Of Mag) 30 ml DAILY PRN PO .CONSTIPATION; Start 08/09/18 at 13:30 Famotidine (Pepcid Iv) 20 mg DAILY IV Last administered on 08/11/18at 08:50; Admin Dose 20 MG; Start 08/10/18 at 09:00 Lorazepam (Ativan) 0.5 mg Q6H PRN IV ANXIETY; Start 08/09/18 at 13:30 Albuterol/ Ipratropium (Duoneb) 3 ml Q4H RESP THERAPY PRN HHN SHORTNESS OF BREATH; Start 08/09/18 at 13:00 Hydralazine HCl (Apresoline) 10 mg Q4H PRN IV ELEVATED BLOOD PRESSURE; Start 08/09/18 at 13:30 Nitroglycerin (Nitroglycerin (Sl Tab) 0.4 Mg) 1 tab Q5M PRN SL ANGINA Last administered on 08/09/18at 22:11; Admin Dose 1 TAB; Start 08/09/18 at 13:30 Enalaprilat (Vasotec Iv) 1.25 mg Q4H PRN IV ELEVATED BLOOD PRESSURE; Start 08/09/18 at 13:30 Labetalol HCl (Labetalol) 20 mg Q6H PRN IV ELEVATED BLOOD PRESSURE; Start 08/09/18 at 13:30 Ondansetron HCl 8 mg/Sodium Chloride 54 ml @ 216 mls/hr Q6H PRN IV NAUSEA AND/OR VOMITING; Start 08/09/18 at 14:00 Nifedipine (Procardia Xl) 60 mg BID PO Last administered on 08/11/18at 08:49; Admin Dose 60 MG; Start 08/10/18 at 09:00 Heparin Sodium (Porcine) (Heparin (1000 Units/ml)) 4,000 unit AFTER DIALYSIS CATHETER Last administered on 08/10/18at 21:27; Admin Dose 3,300 UNIT; Start 08/09/18 at 22:30 Albumin Human 100 ml @ 100 mls/hr WITH DIALYSIS PRN IV SBP <90 DURING DIALYSIS; Start 08/09/18 at 22:30 Sodium Chloride (NS) -To prime the dialy... DIRECTED FOR HD PRN IV HD; Start 08/09/18 at 22:30 Insulin Aspart (Novolog Insulin Pen) NOVOLOG *MILD* ALGORITHM WITH MEALS BEDTIME SC Last administered on 08/11/18at 09:29; Admin Dose 1 UNIT; Start 08/10/18 at 08:00 Miscellaneous Information 1 ea NOTE XX ; Start 08/10/18 at 03:00 Glucose (Glutose) 15 gm Q15M PRN PO DECREASED GLUCOSE; Start 08/10/18 at 03:00 Glucose (Glutose) 22.5 gm Q15M PRN PO DECREASED GLUCOSE; Start 08/10/18 at 03:00 Dextrose (D50w Syringe) 25 ml Q15M PRN IV DECREASED GLUCOSE; Start 08/10/18 at 03:00 Dextrose (D50w Syringe) 50 ml Q15M PRN IV DECREASED GLUCOSE; Start 08/10/18 at 03:00 Glucagon (Glucagen) 1 mg Q15M PRN IM DECREASED GLUCOSE; Start 08/10/18 at 03:00 Glucose (Glutose) 15 gm Q15M PRN BUCCAL DECREASED GLUCOSE; Start 08/10/18 at 03:00 PATRICIA VELARDE MD August 11, 2018 10:11
--- NOTE | 2018-08-11 10:55 | RADRPT ---
Vent Rate: 80 bpm RR Interval: 748 msec VT Interval: 154 msec QRS Duration: 99 msec QT Interval: 407 msec QTC Interval: 471 msec P-R-T [place]: 44 - 65 - 80 degrees Sinus rhythm...normal P axis, V-rate 50- 99 Electronically Signed By: Krishna Cooper
--- NOTE | 2018-08-11 11:00 | RADRPT ---
Vent Rate: 80 bpm RR Interval: 748 msec NV Interval: 154 msec QRS Duration: 99 msec QT Interval: 407 msec QTC Interval: 471 msec P-R-T [place]: 44 - 65 - 80 degrees Sinus rhythm...normal P axis, V-rate 50- 99 Electronically Signed By: Krishna Cooper
--- NOTE | 2018-08-11 11:28 | DS ---
Date/Time of Note Date/Time of Note DATE: 08/11/18 TIME: 11:20 Discharge Summary Admission/Discharge Info Admit Date/Time August 09, 2018 at 04:43 Discharge Date/Time Discharge Diagnosis 32-year-old male presenting with left upper quadrant pain managed as follows: 1. Recurrent acute pancreatitis pancreatitis: Resolved Patient denies alcohol use-, states he has been told his pancreatitis is due to his diabetes -Encouraged to abstain from alcohol nevertheless -Outpatient GI follow-up 2. Status post hypertensive urgency: Resolved now. 3. Chronic hypertension 4. End-stage renal disease: Saturday dialysis schedule 5. 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 Dyslipidemia 7. Anemia of chronic renal disease 8. Mild troponin elevation likely secondary to renal failure 9. Noncompliance with therapy and dialysis 10. Remote history of substance use . Patient Condition: Stable Consults Nephrology: Dr. Henry Kenny MD Cardiology: Dr. Guido Vyas MD . Hospital Course 32-year-old male known to our service from recurrent admissions for acute pancreatitis also with a history of type 1 diabetes mellitus diagnosed at age 13 of which patient admits noncompliance to therapy, diabetes ophthalmopathy as well as left eye blindness who had presented with abdominal pain and was found to have acute pancreatitis with lipase level greater than 3000. At this time he is levels have improved, he is tolerating a diet, still has intermittent pain but overall is comfortable. He is stable for continued management outpatient. Dialysis schedule is Saturday and Saturday, patient has requested a different yellow pages space salesperson and Dr. Jelani Kenny MD has taken over his care. He has been evaluated by myself and at this time is stable for discharge. He has been counseled on the need to stay very compliant with his diet and medications. Of note is that patient had a slight bump in his troponin levels, cardiology c onsultation was obtained, this was thought to be related to renal failure. Patient did undergo 2D echocardiogram that showed ejection fraction 55% without significant valvular abnormalities, patient has been cleared for discharge from cardiology standpoint as well. Home Meds Active Scripts Carvedilol* (Coreg*) 12.5 Mg Tablet, 12.5 MG PO BID for 30 Days, #60 TAB Prov:MIKE GIFFORD MD 07/24/18 Famotidine* (Famotidine*) 20 Mg Tablet, 20 MG PO DAILY for 30 Days, TAB Prov:MIKE GIFFORD MD 07/24/18 Polyethylene Glycol* (Miralax*) 17 Gm Powd.pack, 17 GM PO DAILY for 10 Days Prov:MIKE GIFFORD MD 07/24/18 Aspirin (Aspirin) 81 Mg Chew, 81 MG PO DAILY for 30 Days, TAB Prov:MIKE GIFFORD MD 07/24/18 Nifedipine (Procardia Xl) 60 Mg Tab.er.24, 60 MG PO DAILY for 30 Days, TAB Prov:MIKE GIFFORD MD 07/24/18 Isosorbide Mononitrate* (Isosorbide Mononitrate*) 30 Mg Tab.er.24h, 30 MG PO D AILY for 30 Days Prov:MIKE GIFFORD MD 07/24/18 Atorvastatin* (Atorvastatin*) 40 Mg Tablet, 40 MG PO HS for 30 Days, TAB Prov:MIKE GIFFORD MD 07/24/18 Escitalopram Oxalate* (Escitalopram Oxalate*) 10 Mg Tablet, 10 MG PO DAILY for 30 Days, #30 TAB Prov:MIKE GIFFORD MD 07/24/18 Gabapentin* (Gabapentin*) 300 Mg Capsule, 300 MG PO QHS for 30 Days, #60 CAP Prov:MIKE GIFFORD MD 07/24/18 Furosemide* (Furosemide*) 40 Mg Tablet, 40 MG PO BID for 30 Days, TAB Prov:MIKE GIFFORD MD 07/24/18 Calcium Acetate* (Calcium Acetate*) 667 Mg Capsule, 2001 MG PO WITH MEALS for 28 Days, #30 CAP Prov:MIKE GIFFORD MD 07/24/18 Reported Medications Insulin Human Regular (Novolin-R U-100) 100 Unit/Ml Soln, 10 UNITS SC AC BREAKFAST, EA 08/10/18 Insulin Glargine* (Lantus*) 100 Unit/Ml Soln, 15 UNIT SC DAILY, #1 VIAL 08/10/18 Discontinued Reported Medications Ergocalciferol (Vitamin D2) (VITAMIN D2) 50,000 Unit Capsule, 28983 UNIT PO Q7D, CAP 07/10/18 Discontinued Scripts Hydrocodone Bit-Acetaminophen (Hydrocodone Bit-APAP) 5-325MG Tablet, 1 TAB PO Q6H PRN for .MOD PAIN 4-6 for 14 Days, TAB Prov:MIKE GIFFORD MD 07/24/18 Follow-up Plan Please stay compliant with your medications, Continue hemodialysis using the information provided to you by the rehabilitation case coordinator. If you have any questions, please ask for you leave. Also if you need refills on your prescriptions, please let somebody know before you leave. Due to your recurrent bouts of pancreatitis, ask your primary care doctor to refer you to a director of cath lab for monitoring and management, . Primary Care Provider Not On Staff Doctor Time spent on discharge: > 30 minutes Pending Labs Laboratory Tests Test 08/10/18 11:45 08/10/18 17:36 08/10/18 21:37 08/11/18 05:30 Bedside 182 134 180 Glucose mg/dL (70-220) mg/dL (70-220) mg/dL (70-220) White Blood 7.1 Count 10^3/ul (4.8-1 0.8) Red Blood 3.34 Count 10^6/ul (4.70- 6.10) Hemoglobin 10.2 g/dl (14.0-18. 0) Hematocrit 31.3 % (42.0-52.0) Mean 93.7 Corpuscular fl (82.0-101.0 Volume ) Mean 30.5 Corpuscular pg (29.0-33.0) Hemoglobin Mean 32.6 Corpuscular g/dl (32.0-37. Hemoglobin Conc 0) ent Red Cell 13.8 Distribution % (11.5-14.5) Width Platelet Count 191 10^3/UL (140-4 15) Mean Platelet 12.4 Volume fl (7.4-10.4) Immature 0.400 Granulocytes % % (0.001-0.429 ) Neutrophils % 67.3 % (39.0-77.0) Lymphocytes % 16.4 % (15.0-51.0) Monocytes % 10.5 % (0.0-11.0) Eosinophils % 4.3 % (0.0-7.0) Basophils % 1.1 % (0.0-2.0) Nucleated Red 0.0 Blood Cells % /100WBC (0.0-0 .0) Immature 0.030 Granulocytes # 10^3/ul (0.0-0 .031) Neutrophils # 4.8 10^3/ul (1.6-7 .5) Lymphocytes # 1.2 10^3/ul (0.8-2 .9) Monocytes # 0.8 10^3/ul (0.3-0 .9) Eosinophils # 0.3 10^3/ul (0.0-0 .5) Basophils # 0.1 10^3/ul (0.0-0 .1) Nucleated Red 0.0 Blood Cells # 10^3/ul (0.0-0 .0) Sodium Level 141 mmol/L (135-14 4) Potassium 4.9 Level mmol/L (3.5-5. 1) Chloride Level 102 mmol/L (97-110 ) Carbon Dioxide 29 Level mmol/L (21-31) Anion Gap 10 (5-13) Blood Urea 37 Nitrogen mg/dl (7-20) Creatinine 8.68 mg/dl (0.61-1. 24) Est Glomerular 7 mL/min (>60) Filtrat Rate mL/min Glucose Level 172 mg/dl (70-220) Calcium Level 8.2 mg/dl (8.4-10. 2) Test 08/11/18 07:45 Bedside 176 Glucose mg/dL (70-220) CIARRA ROBLERO August 11, 2018 11:28
--- NOTE | 2018-08-11 11:30 | PDOCDIS ---
Discharge Instructions DIAGNOSIS Discharge Diagnosis 32-year-old male presenting with left upper quadrant pain managed as follows: 1. Recurrent acute pancreatitis pancreatitis: Resolved Patient denies alcohol use-, states he has been told his pancreatitis is due to his diabetes -Encouraged to abstain from alcohol nevertheless -Outpatient GI follow-up 2. Status post hypertensive urgency: Resolved now. 3. Chronic hypertension 4. End-stage renal disease: Saturday dialysis schedule 5. 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 Dyslipidemia 7. Anemia of chronic renal disease 8. Mild troponin elevation likely secondary to renal failure 9. Noncompliance with therapy and dialysis 10. Remote history of substance use . CONDITION [id number] Patient Condition: Vketl9m Stable HOME CARE INSTRUCTIONS: [id number] Diet Instructions: [id number] Low Fat /Cholesterol ACTIVITY: [id number] Activity Restrictions: Edfhe6m Slowly Increase Activity Rest between Activity FOLLOW UP/APPOINTMENTS Follow-up Plan Please stay compliant with your medications, Continue hemodialysis using the information provided to you by the returned case inspector. If you have any questions, please ask for you leave. Also if you need refills on your prescriptions, please let somebody know before you leave. Due to your recurrent bouts of pancreatitis, ask your primary care doctor to refer you to a contact lens cutter for monitoring and management, . CIARRA ROBLERO August 11, 2018 11:29
[2018-08-11] MEDS ORDERED: NIFE60TA2 PO (11:33)
[2018-08-11] MEDS ORDERED: HYDR-4011 PO (11:33)
[2018-08-11] MEDS ORDERED: PANT20TA2 PO (11:33)
[2018-08-11] MEDS ORDERED: NOVO3I SC (11:37)
--- NOTE | 2018-08-11 11:38 | RADRPT ---
Vent Rate: 92 bpm RR Interval: 0 msec MO Interval: 142 msec QRS Duration: 98 msec QT Interval: 394 msec QTC Interval: 487 msec P-R-T [place]: 67 - 96 - 72 degrees Normal sinus rhythm Rightward axis Prolonged QT Abnormal ECG Electronically Signed By: Krishna Cooper
[2018-08-11 11:52] VITALS: BP 176/92; PULSE 87; RESP 20
[2018-08-11 12:33] VITALS: PULSE 87
== END 2018-08-11 14:17 | disposition home or self-care (01) | DRG 438 ==
LOC: E/R 01:39 → 6WM 04:43 → EDBEDREQ 12:55
PROVIDERS: ADMIT Internal Medicine Nephrology; ATTEND Family Medicine
PROC: 5A1D70Z Performance of Urinary Filtration, Intermittent, Less than 6 Hours Per Day (ICD-10-PCS; 2018-08-09)
PROC: 5A1D70Z Performance of Urinary Filtration, Intermittent, Less than 6 Hours Per Day (ICD-10-PCS; principal; 2018-08-11)
DX: K85.90 Acute pancreatitis without necrosis or infection, unspecified (principal); N18.6 End stage renal disease; I12.0 Hypertensive chronic kidney disease with stage 5 chronic kidney disease or end stage renal disease; N17.9 Acute kidney failure, unspecified; E10.22 Type 1 diabetes mellitus with diabetic chronic kidney disease; E10.319 Type 1 diabetes mellitus with unspecified diabetic retinopathy without macular edema; E87.5 Hyperkalemia; Z99.2 Dependence on renal dialysis; I16.0 Hypertensive urgency; F17.200 Nicotine dependence, unspecified, uncomplicated; F11.90 Opioid use, unspecified, uncomplicated; F12.90 Cannabis use, unspecified, uncomplicated; E78.5 Hyperlipidemia, unspecified; D63.8 Anemia in other chronic diseases classified elsewhere; D63.1 Anemia in chronic kidney disease; Z91.15 Patient's noncompliance with renal dialysis; Z91.19 Patient's noncompliance with other medical treatment and regimen
CPT/HCPCS: 36415; 71275; 75635; 80048; 80053; 80061; 82550; 82553; 82962; 83036; 83690; 83735; 84100; 84439; 84443; 84484; 85025; 85730; 87340; 90935; 93005; 93306; 96374; 96375; 97162; J0360; J1170; J1644; J1815; J2270; J2405; Q9967

== ENCOUNTER 2018-08-25 07:25 | Inpatient (IN) | payer MEDICARE, OTHER ==
[~2018-08-25] VITALS: Ht 182.9 cm; Wt 98.8 kg
[~2018-08-25 07:25] MED LIST changes: -ERGO500013 PO; -FAMO20TA18 PO; -HYDR-3601 PO; +HYDR-4011 PO; +LANT3I SC; +NOVO3I SC; +PANT20TA2 PO
[2018-08-25] MEDS ORDERED: HYDROmorphONE 1 MG/ML SYG IV STA ×2 (08:16→09:37)
[2018-08-25] MEDS ORDERED: ONDANSETRON 4 MG INJ IV STA ×2 (08:16→09:37)
--- NOTE | 2018-08-25 09:16 | ERD ---
ER Documentation Chief Complaint Chief Complaint abdomin & back pain on/off 2mths HPI This is a 32-year-old male with history of end-stage renal disease on hemodialysis every Saturday and Saturday. The patient also has a known history of pancreatitis. The patient has no history of alcohol abuse and states that the pancreatitis is due to his diabetes. The patient's required multiple previous hospital admissions for abdominal pain. He indicates that for the past 3 months he is been having intermittent epigastric pain. The pain radiates to the back. He states the pain is 10 out of 10 in intensity. The patient hanna cates for the past 48 hours the pain has significantly worsened. He has been unable to tolerate oral intake as it hurts to eat. He has not experienced any hemoptysis no hematemesis no melanotic stools. The patient indicated that 2 days ago, Saturday he did go to his dialysis session but only received 2 hours instead of 3 hours of dialysis as he was in too much pain again localized to the epigastric region. He denies any chest pressure. He has no shortness of breath at rest or exertion. He takes [place] for analgesia control but states this does not improve his symptoms. His last admission to the hospital was roughly 2 weeks prior to arrival ROS All systems reviewed and are negative except as per history of present illness. Medications Home Meds Active Scripts Insulin Aspart* (Novolog Insulin Pen*) 100 Unit/Ml Soln, 5 UNIT SC WITH MEALS, #5 VIAL Prov:ANNIKACIARRA. 08/11/18 Hydrocodone/Acetaminophen ([place] 5-325 Tablet) 1 Each Tablet, 1 EACH PO Q6 PRN for PAIN, #10 TAB Prov:CIARRA ROBLERO . 08/11/18 Pantoprazole* (Protonix*) 20 Mg Tablet.dr, 20 MG PO DAILY, #30 TAB 1 Refill Prov:CIARRA ROBLERO . 08/11/18 Nifedipine (Procardia Xl) 60 Mg Tab.er.24, 60 MG PO BID for 30 Days, #60 TAB 1 Refill Prov:CIARRA ROBLERO . 08/11/18 Carvedilol* (Coreg*) 12.5 Mg Tablet, 12.5 MG PO BID for 30 Days, #60 TAB Prov:MIKE GIFFORD MD 07/24/18 Polyethylene Glycol* (Miralax*) 17 Gm Powd.pack, 17 GM PO DAILY for 10 Days Prov:MIKE GIFFORD MD 07/24/18 Aspirin (Aspirin) 81 Mg Chew, 81 MG PO DAILY for 30 Days, TAB Prov:MIKE GIFFORD MD 07/24/18 Isosorbide Mononitrate* (Isosorbide Mononitrate*) 30 Mg Tab.er.24h, 30 MG PO DAILY for 30 Days Prov:MIKE GIFFORD MD 07/24/18 Atorvastatin* (Atorvastatin*) 40 Mg Tablet, 40 MG PO HS for 30 Days, TAB Prov:MIKE GIFFORD MD 07/24/18 Escitalopram Oxalate* (Escitalopram Oxalate*) 10 Mg Tablet, 10 MG PO DAILY for 30 Days, #30 TAB Prov:MIKE GIFFORD MD 07/24/18 Gabapentin* (Gabapentin*) 300 Mg Capsule, 300 MG PO QHS for 30 Days, #60 CAP Prov:MIKE GIFFORD MD 07/24/18 Furosemide* (Furosemide*) 40 Mg Tablet, 40 MG PO BID for 30 Days, TAB Prov:MIKE GIFFORD MD 07/24/18 Calcium Acetate* (Calcium Acetate*) 667 Mg Capsule, 2001 MG PO WITH MEALS for 28 Days, #30 CAP Prov:MIKE GIFFORD MD 07/24/18 Reported Medications Insulin Glargine* (Lantus*) 100 Unit/Ml Soln, 15 UNIT SC DAILY, #1 VIAL 08/10/18 Allergies Allergies: Coded Allergies: benazepril (Verified Allergy, Unknown, 08/25/18) PMhx/Soc History of Surgery: Yes (APPENDECTOMY,LEFT EYE SX,GALBLADDER SX) Anesthesia Reaction: No Hx Neurological Disorder: No Hx Respiratory Disorders: No Hx Cardiac Disorders: Yes (HTN) Hx Psychiatric Problems: No Hx Miscellaneous Medical Probl: Yes (ESRD on HD,blind L eye) Hx Alcohol Use: No Hx Substance Use: Yes Hx Tobacco Use: Yes Smoking Status: Current every day smoker Physical Exam Vitals Vital Signs Date Temp Pulse Resp B/P (MAP) Pulse Ox O2 O2 Flow FiO2 Time Delivery Rate 08/25/18 89 18 152/80 96 Room Air 10:51 (104) 08/25/18 90 18 185/105 95 Room Air 09:18 (131) 08/25/18 97.9 105 18 243/132 100 07:28 (169) Physical Exam Constitutional:Well-developed. Well-nourished. Patient lying supine and appeared to be in a significant amount of discomfort secondary to pain HEENT:Normocephalic. Atraumatic.Pupils were equal round reactive to light. Moist mucous membranes.No tonsillar exudates. Neck: No nuchal rigidity. No lymphadenopathy. No posterior cervical spine tenderness or step-offs. Respiratory: Not using accessory muscles of respiration.Lungs were clear to auscultation bilaterally. No rhonchi. No rales. No wheezing. Cardiovascular: Regular rate regular rhythm.No murmurs. No rubs were appreciated.S1, S2 normal. Distal pulses are palpable 2+ bilaterally. GI: Abdomen was soft. Epigastric tenderness. Non Distended. No pulsatile abdominal masses or bruits. No rebound. No guarding. Bowel sounds were present and normal. Muscle skeletal: Full range of motion of both the upper and lower extremities bilaterally.Normal muscle tone.No assymetrical calf tenderness or swelling. Skin: No petechia, no purpura. No lesions on the palms or the soles of the feet. No maculopapular rash. Tunnel catheter present in right chest wall with no surrounding erythema warmth tenderness fluctuance or induration NEURO: Patient was alert, awake, orientated x3.No facial droop. Gait observed and normal with no ataxia.Speech had regular rate and rhythm. No focal neurological deficits. Result Diagram: 08/25/18 0837 08/25/18 0837 Results 24 hrs Laboratory Tests Test 08/25/18 08:37 08/25/18 10:28 08/25/18 11:16 White Blood Count 7.3 10^3/ul Red Blood Count 3.04 10^6/ul Hemoglobin 9.3 g/dl Hematocrit 28.5 % Mean Corpuscular Volume 93.8 fl Mean Corpuscular Hemoglobin 30.6 pg Mean Corpuscular 32.6 g/dl Hemoglobin Concent Red Cell Distribution Width 13.8 % Platelet Count 162 10^3/UL Mean Platelet Volume 11.8 fl Immature Granulocytes % 0.500 % Neutrophils % 72.9 % Lymphocytes % 13.4 % Monocytes % 10.5 % Eosinophils % 2.0 % Basophils % 0.7 % Nucleated Red Blood Cells % 0.0 /100WBC Immature Granulocytes # 0.040 10^3/ul Neutrophils # 5.3 10^3/ul Lymphocytes # 1.0 10^3/ul Monocytes # 0.8 10^3/ul Eosinophils # 0.2 10^3/ul Basophils # 0.1 10^3/ul Nucleated Red Blood Cells # 0.0 10^3/ul Prothrombin Time 12.7 Sec Prothrombin Time Ratio 1.0 INR International Normalized Ratio 0.94 Activated Partial Thromboplast 29.2 Sec Time Sodium Level 139 mmol/L Potassium Level 5.1 mmol/L Chloride Level 97 mmol/L Carbon Dioxide Level 26 mmol/L Anion Gap 16 Blood Urea Nitrogen 61 mg/dl Creatinine 10.18 mg/dl Est Glomerular Filtrat Rate mL/min 6 mL/min Glucose Level 282 mg/dl Calcium Level 7.9 mg/dl Total Bilirubin 0.2 mg/dl Direct Bilirubin 0.00 mg/dl Indirect Bilirubin 0.2 mg/dl Aspartate Amino Transf (AST/SGOT) 15 IU/L Alanine 13 IU/L Aminotransferase (ALT/SGPT) Alkaline Phosphatase 71 IU/L Troponin I 0.021 ng/ml Total Protein 7.2 g/dl Albumin 3.9 g/dl Globulin 3.30 g/dl Albumin/Globulin Ratio 1.18 Amylase Level 331 U/L Lipase 2458 U/L Bedside Glucose 240 mg/dL 185 mg/dL Current Medications Medications Dose Sig/[place] Start Time Status Last (Trade) Ordered Route PRN Stop Time Admin Dose Reason Admin 1 mg ONCE STAT 08/25/18 DC 08/25/18 Hydromorphone IV 08:16 08:40 HCl 08/25/18 08:17 (Dilaudid) Ondansetron 4 mg ONCE STAT 08/25/18 DC 08/25/18 HCl (Zofran IV 08:16 08:40 Inj) 08/25/18 08:17 1 mg ONCE STAT 08/25/18 DC 08/25/18 Hydromorphone IV 09:37 10:08 HCl 08/25/18 09:39 (Dilaudid) Ondansetron 4 mg ONCE STAT 08/25/18 DC 08/25/18 HCl (Zofran IV 09:37 10:08 Inj) 08/25/18 09:39 Hydralazine 10 mg ONCE ONCE 08/25/18 DC 08/25/18 HCl IV 10:00 10:09 (Apresoline) 08/25/18 10:01 Ondansetron 4 mg ER BRIDGE 08/25/18 HCl (Zofran PRN IV 10:30 Inj) NAUSEA/VOMITI 08/26/18 10:29 NG 650 mg ER BRIDGE 08/25/18 Acetaminophen PRN PO 10:30 (Tylenol .MILD PAIN 08/26/18 10:29 Tab) 1-3 OR TEMP Insulin 5 unit ONCE STAT 08/25/18 DC 08/25/18 Human SC 10:12 10:30 Lispro 08/25/18 10:24 (Humalog) Discontinue ONCE ONCE 08/25/18 Miscellaneous current oral XX 11:30 sulfonylur... 08/25/18 11:31 Information (* Miscellaneous Pharmacy Order) Insulin 15 units DAILY@199908/25/18 Glargine SC 20:00 (Lantus) Insulin 5 unit WITH MEALS 08/25/18 Aspart SC 12:00 (Novolog Insulin Pen) Insulin NOVOLOG WITH MEALS 08/25/18 Aspart *MILD* BEDTIME SC 12:00 (Novolog ALGORITHM Insulin Pen) 1 ea NOTE XX 08/25/18 Miscellaneous 11:30 Information Glucose 15 gm Q15M PRN 08/25/18 (Glutose) PO DECREASED 11:30 GLUCOSE Glucose 22.5 gm Q15M PRN 08/25/18 (Glutose) PO DECREASED 11:30 GLUCOSE Dextrose 25 ml Q15M PRN 08/25/18 (D50w IV DECREASED 11:30 Syringe) GLUCOSE Dextrose 50 ml Q15M PRN 08/25/18 (D50w IV DECREASED 11:30 Syringe) GLUCOSE Glucagon 1 mg Q15M PRN 08/25/18 (Glucagen) IM DECREASED 11:30 GLUCOSE Glucose 15 gm Q15M PRN 08/25/18 (Glutose) BUCCAL 11:30 DECREASED GLUCOSE Carvedilol 12.5 mg BID PO 08/25/18 (Coreg) 21:00 10 mg DAILY PO 08/26/18 UNV Escitalopram 09:00 Oxalate (Lexapro) Furosemide 40 mg BID PO 08/25/18 UNV (Lasix) 21:00 Isosorbide 30 mg DAILY PO 08/26/18 UNV Mononitrate 09:00 (Imdur) Nifedipine 60 mg BID PO 08/25/18 UNV (Procardia 21:00 Xl) 17 gm DAILY PO 08/26/18 UNV Polyethylene 09:00 Glycol (Miralax) Procedures/MDM This patient presented to the emergency department with abdominal pain and was seen and evaluated by myself. My differential diagnosis included but was not limited to abdominal aortic aneurysm, appendicitis, pancreatitis, perforated peptic ulcer, perforated viscus, Boerhaaves syndrome or visceral pain such as diverticulitis, DKA, esophagitis, hepatitis or bowel obstruction. The patient was placed on a university librarian, continuous pulse oximetry, and IV access was established by nursing staff. The patient received intravenous Dilaudid and Zofran. I obtained a 1 view chest radiograph given the patient had not completed a full run of dialysis and there is no evidence of pulmonary edema. There is no infiltrates. The patient's epigastric pain if it was a result of pancreatitis. The patient's lipase was elevated at 2458 with an elevated amylase of 331. I did not obtain a CT scan of the patient's abdomen is my clinical suspicion was low for pseudocyst or pancreatic abscess and the patient has had a previous CT scan recently performed. The patient's BUN was 61 and creatinine was 10.18. The patient will be admitted in order to undergo emergent hemodialysis. The patient was hyperglycemic with no ketosis. Patient had an anion gap of 16 with a normal chloride. His blood glucose was 282 and he was treated with subcutaneous insulin. The patient will be admitted in serious condition under the care of the hospitalist Dr. García. The patient will require admission to the telemetry service as this patient presented to the emergency department with severely elevated blood pressure. The patient had uncontrolled hypertensive with end-organ damage to suggest hypertensive emergency. The treatment goal was immediate reduction of the mean arterial blood pressure. This was done in a controlled, graded manor, using improvement of the patient's condition as a guide. The patient's blood pressure reduction did not exceed more then a 20-25 percent reduction within the first 30 to 60 minutes. The antihypertensive agent used was hydralazine 12 Lead EKG tracing ordered and reviewed by myself showed: Normal sinus rhythm of 86 bpm and no arrhythmia. WI interval normal. QRS duration normal. No ST segment elevation No ST segment depression. No changes consistent with acute ischemia. Critical Care: Time: 65 minutes Treatments/Evaluations: Close monitoring and treatment of unstable vital signs, cardiorespiratory, and neurologic status, while maintaining tight balance of fluid, respiratory, and cardiac interventions. Time does not include performing any of the above billable procedures. Departure Diagnosis: Primary Impression: Pancreatitis Chronicity: acute Pancreatitis type: unspecified pancreatitis type Acute pancreatitis complication: no infection or necrosis Qualified Codes: K85.90 - Acute pancreatitis without necrosis or infection, unspecified Additional Impressions: Hypertensive emergency, no CHF Renal failure Renal failure chronicity: acute on chronic Acute renal failure type: unspecified Chronic kidney disease stage: on chronic dialysis Qualified Co sylvia: N17.9 - Acute kidney failure, unspecified; N18.9 - Chronic kidney disease, unspecified; Z99.2 - Dependence on renal dialysis Hyperglycemia without ketosis Condition: Serious MIAN CHAMORRO MD August 25, 2018 09:16
[2018-08-25] MEDS ORDERED: hydrALAzine 20 MG INJ IV ONE (10:00)
[2018-08-25] MEDS ORDERED: INSULIN LISPRO 100 UNIT/ML VIAL SC STA (10:12)
[2018-08-25] MEDS ORDERED: ACETAMINOPHEN 325 MG TAB PO PRN (10:30)
[2018-08-25] MEDS ORDERED: GLUCOSE GEL 15 GRAM TUBE BUCCAL PRN (11:30)
[2018-08-25] MEDS ORDERED: DEXTROSE 50% 50 ML SYRINGE IV PRN ×2 (11:30)
[2018-08-25] MEDS ORDERED: NACL 0.9% 3 ML SYG IV SCH (11:30)
[2018-08-25] MEDS ORDERED: HYDROmorphONE 0.5 MG/0.5 ML SYG IV PRN (11:30)
[2018-08-25] MEDS ORDERED: GLUCOSE GEL 15 GRAM TUBE PO PRN ×2 (11:30)
[2018-08-25] MEDS ORDERED: GLUCAGON 1 MG INJ IM PRN (11:30)
[2018-08-25] MEDS: INSULIN ASPART [NOVOLOG] 3 ML PEN SC SCH ×5 (12:00→21:18)
[2018-08-25] MEDS: ONDANSETRON 4 MG INJ IV PRN ×2 (14:27→16:18)
[2018-08-25 16:05] VITALS: PULSE 94
[2018-08-25] MEDS: HYDROmorphONE 1 MG/ML SYG IV PRN ×2 (16:32→21:20)
--- NOTE | 2018-08-25 17:09 | HP ---
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 His lipase is elevated but his symptoms seem more consistent with gastroparesis and his pancreas is radiographically normal -Consult gastroenterology End-stage renal disease -HD per Dr. Franklin Hypertension: -Continue antihypertensives Diabetes: -Continue basal bolus insulin Result Diagram: 08/25/18 0837 08/25/18 0837 Results 24hrs Laboratory Tests Test 08/25/18 08:37 08/25/18 10:28 08/25/18 11:16 08/25/18 13:03 White Blood Count 7.3 Red Blood Count 3.04 L Hemoglobin 9.3 L Hematocrit 28.5 L Mean Corpuscular 93.8 Volume Mean Corpuscular 30.6 Hemoglobin Mean Corpuscular 32.6 Hemoglobin Concent Red Cell 13.8 Distribution Width Platelet Count 162 Mean Platelet Volume 11.8 H Immature 0.500 H Granulocytes % Neutrophils % 72.9 Lymphocytes % 13.4 L Monocytes % 10.5 Eosinophils % 2.0 Basophils % 0.7 Nucleated Red Blood 0.0 Cells % Immature 0.040 H Granulocytes # Neutrophils # 5.3 Lymphocytes # 1.0 Monocytes # 0.8 Eosinophils # 0.2 Basophils # 0.1 Nucleated Red Blood 0.0 Cells # Prothrombin Time 12.7 Prothrombin Time 1.0 Ratio INR International 0.94 Normalized Ratio Activated 29.2 Partial Thromboplast Time Sodium Level 139 Potassium Level 5.1 Chloride Level 97 Carbon Dioxide Level 26 Anion Gap 16 H Blood Urea Nitrogen 61 H Creatinine 10.18 H Est Glomerular 6 L Filtrat Rate mL/min Glucose Level 282 H Calcium Level 7.9 L Total Bilirubin 0.2 Direct Bilirubin 0.00 Indirect Bilirubin 0.2 Aspartate Amino 15 Transf (AST/SGOT) Alanine 13 Aminotransferase (AL T/SGPT) Alkaline Phosphatase 71 Troponin I 0.021 Total Protein 7.2 Albumin 3.9 Globulin 3.30 H Albumin/Globulin 1.18 Ratio Amylase Level 331 H Lipase 2458 H Bedside Glucose 240 H 185 64 L Test 08/25/18 13:40 Bedside Glucose 98 HPI/ROS Admit Date/Time Admit Date/Time August 25, 2018 at 10:10 Hx of Present Illness 32 yo m male with a history of uncontrolled diabetes, end-stage renal disease secondary to diabetic nephropathy,diabetic retinopathy, gastroparesis presents with abdominal pain The patient reports chronic abdominal pain over the previous months. It seems she has been diagnosed with gastroparesis here. He says he gets very full following meals and then throws up. Has constant pain in his epigastrium. Denies fevers or chills. He is currently unable to eat. Pain is only relieved by IV narcotics. Denies alcohol use ROS Constitutional: no complaints, improved Eyes: no complaints ENT: no complaints Respiratory: no complaints Cardiovascular: no complaints Gastrointestinal: no complaints Genitourinary: no complaints Musculoskeletal: no complaints Skin: no complaints Neurologic: no complaints Endocrine: no complaints Lymphatic: no complaints Psychological: no complaints, nl mood/affect Immunologic: no complaints PMH/Family/Social Past Medical History Medical History: diabetes, renal disease Medications Current Medications Ondansetron HCl (Zofran Inj) 4 mg ER BRIDGE PRN IV NAUSEA/VOMITING Last administered on 08/25/18at 16:18; Admin Dose 4 MG; Start 08/25/18 at 10:30; Stop 08/26/18 at 10:29 Acetaminophen (Tylenol Tab) 650 mg ER BRIDGE PRN PO .MILD PAIN 1-3 OR TEMP; Start 08/25/18 at 10:30; Stop 08/26/18 at 10:29 Insulin Glargine (Lantus) 15 units DAILY@2000 SC ; Start 08/25/18 at 20:00 Insulin Aspart (Novolog Insulin Pen) 5 unit WITH MEALS SC ; Start 08/25/18 at 12:00 Insulin Aspart (Novolog Insulin Pen) NOVOLOG *MILD* ALGORITHM WITH MEALS BEDTIME SC ; Start 08/25/18 at 12:00 Miscellaneous Information 1 ea NOTE XX ; Start 08/25/18 at 11:30 Glucose (Glutose) 15 gm Q15M PRN PO DECREASED GLUCOSE; Start 08/25/18 at 11:30 Glucose (Glutose) 22.5 gm Q15M PRN PO DECREASED GLUCOSE; Start 08/25/18 at 11:30 Dextrose (D50w Syringe) 25 ml Q15M PRN IV DECREASED GLUCOSE; Start 08/25/18 at 11:30 Dextrose (D50w Syringe) 50 ml Q15M PRN IV DECREASED GLUCOSE; Start 08/25/18 at 11:30 Glucagon (Glucagen) 1 mg Q15M PRN IM DECREASED GLUCOSE; Start 08/25/18 at 11:30 Glucose (Glutose) 15 gm Q15M PRN BUCCAL DECREASED GLUCOSE; Start 08/25/18 at 11:30 Carvedilol (Coreg) 12.5 mg BID PO ; Start 08/25/18 at 21:00 Escitalopram Oxalate (Lexapro) 10 mg DAILY PO ; Start 08/26/18 at 09:00 Furosemide (Lasix) 40 mg BID DIURETICS PO ; Start 08/25/18 at 18:00 Isosorbide Mononitrate (Imdur) 30 mg DAILY PO ; Start 08/26/18 at 09:00 Nifedipine (Procardia Xl) 60 mg BID PO ; Start 08/25/18 at 21:00 Polyethylene Glycol (Miralax) 17 gm DAILY PO ; Start 08/26/18 at 09:00 IV Flush (NS 3 ml) 3 ml PER PROTOCOL IV ; Start 08/25/18 at 11:30 Ondansetron HCl (Zofran Inj) 4 mg Q6H PRN IV NAUSEA/VOMITING; Start 08/25/18 at 11:30 Heparin Sodium (Porcine) (Heparin (5000 Units/1ml)) 5,000 unit Q12 SC ; Start 08/25/18 at 21:00 Hydromorphone HCl (Dilaudid) 1 mg Q4H PRN IV SEVERE PAIN LEVEL 7-10 Last administered on 08/25/18at 16:32; Admin Dose 1 MG; Start 08/25/18 at 16:30 Coded Allergies: benazepril (Verified Allergy, Unknown, 08/25/18) Past Surgical History Past Surgical Hx: appendectomy, cholecystectomy, other Family History Significant Family History: no pertinent family hx Social History Alcohol Use: none Smoking Status: Current every day smoker Drug Use: none Exam/Review of Systems Vital Signs Vitals Vital Signs Date Temp Pulse Resp B/P (MAP) Pulse Ox O2 O2 Flow FiO2 Time Delivery Rate 08/25/18 94 16:05 08/25/18 184/107 14:41 (132) 08/25/18 98.7 20 99 Room Air 14:30 Exam Exam Alert and oriented x3 Pleasant in no distress Bilateral visual impairment noted Regular rate and rhythm Comfortably Abdomen soft minimally tender in the epigastrium Mild pedal edema bilaterally AHMET ESTRADA MD August 25, 2018 17:09
[2018-08-25 17:57] VITALS: PULSE 96
[2018-08-25] MEDS: FUROSEMIDE 40 MG TAB PO SCH (18:27)
[2018-08-25 20:00] VITALS: BP 187/104; PULSE 98; RESP 18
[2018-08-25] MEDS: INSULIN GLARGINE [LANTus] (100 UNITS/ML) SYG SC SCH (20:00)
[2018-08-25] MEDS: NIFEdipine (XL) 60 MG TAB PO SCH (21:07)
[2018-08-25] MEDS: HEPARIN 5,000 UNIT/1 ML VIAL SC SCH (21:10)
--- NOTE | 2018-08-25 22:57 | QN ---
Documentation Comment [id number] SHON MTZ MD August 25, 2018 22:57
[2018-08-26] VITALS (25 sets, daily range): BP systolic 106–184; BP diastolic 57–98; PULSE 80–92; RESP 18–20
[2018-08-26] MEDS: HYDROmorphONE 1 MG/ML SYG IV PRN ×5 (01:08→23:10)
[2018-08-26] MEDS ORDERED: traMADol 50 MG TAB PO PRN (05:30)
[2018-08-26] MEDS: FUROSEMIDE 40 MG TAB PO SCH ×2 (05:51→17:26)
[2018-08-26] MEDS: INSULIN ASPART [NOVOLOG] 3 ML PEN SC SCH ×7 (08:04→20:45)
[2018-08-26] MEDS ORDERED: HEPARIN 1000 UNITS/ML 10 ML INJ CATHETER ONE (08:30)
--- NOTE | 2018-08-26 09:56 | CONS ---
DATE OF ADMISSION: 08/25/2018 DATE OF CONSULTATION: TYPE OF CONSULTATION: Nephrology consultation Thank you, Dr. Iyer, for kindly asking me to see this patient in consultation. HISTORY OF PRESENT ILLNESS: The patient with history of ESRD, hypertension, diabetes mellitus,_ admitted with abdominal pain. to me. The patient has a history of elevated amylase and lipase and is being admitted for further management of abd pain PAST MEDICAL HISTORY: fistula placement, pancreatitis, multiple hospitalizations, narcotic use, chronic hospitalization, noncompliance. ALLERGY HISTORY: NEGATIVE. FAMILY HISTORY: Negative. SOCIAL HISTORY: Negative. MEDICATIONS: The patient is on 1. Calcium acetate. 2. Coreg. 3. Celexa. 4. Furosemide. 5. Gabapentin. 6. Hydrocodone. 7. Insulin. 8. renavite REVIEW OF SYSTEMS: HEENT: Unremarkable. RESPIRATORY: Unremarkable. CARDIOVASCULAR: Unremarkable. ABDOMEN: On and off abdominal pain. EXTREMITIES: Unremarkable. CENTRAL NERVOUS SYSTEM: Unremarkable. PHYSICAL EXAMINATION: GENERAL: The patient is awake and alert. VITAL SIGNS: Pulse 96, blood pressure 184/107. HEENT: Head is atraumatic, normocephalic. Pupils equal, reactive to light. NECK: Supple. No JVD. LUNGS: Clear. CARDIOVASCULAR: S1, S2 normal. ABDOMEN: Soft. tenderness on palpation. Pulses palpable. EXTREMITIES: No cyanosis, clubbing or edema. CENTRAL NERVOUS SYSTEM: The patient is awake, alert with no focal deficit. LABORATORY DATA: 5.1, lipase 2. IMPRESSION: 1. Abdominal pain. 2. Chronic pancreatitis. 3. End-stage renal disease. 4. Hypertension. 5. Diabetes mellitus. 6. Multiple hospitalizations. PLAN: Continue current treatment. Pain medication, PPI, hemodialysis for tomorrow. The patient will benefit from GI consultation and possible use of chronic pain medicine and Creon Thank you, Dr. Iyer, for kindly asking me to see this patient in nephrology consultation. Dictated By: SHON MTZ MD BS/NTS Conf#: [id number] DID#: [id number] CC: AHMET IYER MD;*EndCC* MTDD
--- NOTE | 2018-08-26 10:51 | PN ---
Date/Time of Note Date/Time of Note DATE: 08/26/18 TIME: 10:51 Assessment/Plan VTE Prophylaxis Risk score (from Nsg)>0 risk: 1 SCD applied (from Nsg): No SCD contraindicated: low risk/ambulating Pharmacological prophylaxis: NA/contraindicated Pharm contraindication: low risk/ambulating Lines/Catheters IV Catheter Type (from Nrsg): Saline Lock Urinary Cath still in place: No Assessment/Plan Assessment/Plan 1. Acute pancreatitis - lipase improving but still with pain. Discussed with patient will need to start liquids and advance once pain resolves - pain control 2. Diabetes Mellitus - A1c noted - ISS and accuchecks 3. ESRD on HD - Nephrology on board for HD management 4. HTN urgency - resolved - BP control and will adjust medications as needed - improved after HD 5. anemia of chronic disease - no reji bleeding noted - stable and no need for transfusions at this time 6. Disposition - Will change diet to full liquids and advance based on improvement in abdominal pain. Once tolerating PO and no further issues, will d/c home Result Diagram: 08/26/18 0453 08/26/18 0454 Results 24hrs Laboratory Tests Test 08/25/18 11:16 08/25/18 13:03 08/25/18 13:40 08/25/18 18:03 Bedside Glucose 185 64 L 98 170 Test 08/25/18 21:06 08/26/18 01:05 08/26/18 04:53 08/26/18 04:54 Bedside Glucose 212 148 White Blood Count 7.1 Red Blood Count 3.00 L Hemoglobin 9.1 L Hematocrit 28.2 L Mean Corpuscular 94.0 Volume Mean Corpuscular 30.3 Hemoglobin Mean Corpuscular 32.3 Hemoglobin Concent Red Cell 13.8 Distribution Width Platelet Count 179 Mean Platelet Volume 12.5 H Immature 0.300 Granulocytes % Neutrophils % 66.1 Lymphocytes % 19.3 Monocytes % 10.5 Eosinophils % 3.1 Basophils % 0.7 Nucleated Red Blood 0.0 Cells % Immature 0.020 Granulocytes # Neutrophils # 4.7 Lymphocytes # 1.4 Monocytes # 0.8 Eosinophils # 0.2 Basophils # 0.1 Nucleated Red Blood 0.0 Cells # Hemoglobin A1c 8.0 H Sodium Level 139 Potassium Level 5.5 H Chloride Level 99 Carbon Dioxide Level 23 Anion Gap 17 H Blood Urea Nitrogen 74 H Creatinine 11.01 H Est Glomerular 5 L Filtrat Rate mL/min Glucose Level 136 # Calcium Level 7.9 L Total Bilirubin 0.2 Direct Bilirubin 0.00 Indirect Bilirubin 0.2 Aspartate Amino 14 L Transf (AST/SGOT) Alanine 18 Aminotransferase (AL T/SGPT) Alkaline Phosphatase 62 Total Protein 6.6 Albumin 3.7 Globulin 2.90 Albumin/Globulin 1.27 Ratio Lipase 664 H Test 08/26/18 07:58 Bedside Glucose 181 Subjective 24 Hr Interval Summary Free Text/Dictation Patient still with some epigastric discomfort radiating to back. tolerating diet but discussed needing to give pancreas a rest. Moving bowels with BM yesterday so less concern for gastroparesis. Exam/Review of Systems Exam Vitals Vital Signs Date Temp Pulse Resp B/P (MAP) Pulse Ox O2 O2 Flow FiO2 Time Delivery Rate 08/26/18 84 10:30 08/26/18 20 141/85 Room Air 08:15 (103) 08/26/18 97.6 91 07:04 Intake and Output 08/25/18 08/25/18 08/26/18 1515:00 23:00 07:00 IntakeIntake Total 560 ml 400 ml BalanceBalance 560 ml 400 ml Exam General: Patient is in no acute distress. answering questions appropriately Neck: Supple Chest: Nontender Lungs: Clear to auscultation bilaterally, no wheezing or rhonchi Heart: Normal S1-S2, Regular rhythm and rate. No murmur, S3, or S4 Abdomen: Soft , mild epigastric tenderness, nondistended , bowel sounds are pr esent. No guarding no rebound tenderness Extremities: Normal to inspection, no cyanosis or clubbing or edema Skin: no rashes or lesions Results Results 24hrs Laboratory Tests Test 08/25/18 11:16 08/25/18 13:03 08/25/18 13:40 08/25/18 18:03 Bedside Glucose 185 64 L 98 170 Test 08/25/18 21:06 08/26/18 01:05 08/26/18 04:53 08/26/18 04:54 Bedside Glucose 212 148 White Blood Count 7.1 Red Blood Count 3.00 L Hemoglobin 9.1 L Hematocrit 28.2 L Mean Corpuscular 94.0 Volume Mean Corpuscular 30.3 Hemoglobin Mean Corpuscular 32.3 Hemoglobin Concent Red Cell 13.8 Distribution Width Platelet Count 179 Mean Platelet Volume 12.5 H Immature 0.300 Granulocytes % Neutrophils % 66.1 Lymphocytes % 19.3 Monocytes % 10.5 Eosinophils % 3.1 Basophils % 0.7 Nucleated Red Blood 0.0 Cells % Immature 0.020 Granulocytes # Neutrophils # 4.7 Lymphocytes # 1.4 Monocytes # 0.8 Eosinophils # 0.2 Basophils # 0.1 Nucleated Red Blood 0.0 Cells # Hemoglobin A1c 8.0 H Sodium Level 139 Potassium Level 5.5 H Chloride Level 99 Carbon Dioxide Level 23 Anion Gap 17 H Blood Urea Nitrogen 74 H Creatinine 11.01 H Est Glomerular 5 L Filtrat Rate mL/min Glucose Level 136 # Calcium Level 7.9 L Total Bilirubin 0.2 Direct Bilirubin 0.00 Indirect Bilirubin 0.2 Aspartate Amino 14 L Transf (AST/SGOT) Alanine 18 Aminotransferase (AL T/SGPT) Alkaline Phosphatase 62 Total Protein 6.6 Albumin 3.7 Globulin 2.90 Albumin/Globulin 1.27 Ratio Lipase 664 H Test 08/26/18 07:58 Bedside Glucose 181 Medications Medication Current Medications Insulin Glargine (Lantus) 15 units DAILY@2000 SC ; Start 08/25/18 at 20:00 Insulin Aspart (Novolog Insulin Pen) 5 unit WITH MEALS SC Last administered on 08/26/18at 08:04; Admin Dose 5 UNIT; Start 08/25/18 at 12:00 Insulin Aspart (Novolog Insulin Pen) NOVOLOG *MILD* ALGORITHM WITH MEALS BEDTIME SC Last administered on 08/26/18at 08:05; Admin Dose 2 UNIT; Start 08/25/18 at 12:00 Miscellaneous Information 1 ea NOTE XX ; Start 08/25/18 at 11:30 Glucose (Glutose) 15 gm Q15M PRN PO DECREASED GLUCOSE; Start 08/25/18 at 11:30 Glucose (Glutose) 22.5 gm Q15M PRN PO DECREASED GLUCOSE; Start 08/25/18 at 11:30 Dextrose (D50w Syringe) 25 ml Q15M PRN IV DECREASED GLUCOSE; Start 08/25/18 at 11:30 Dextrose (D50w Syringe) 50 ml Q15M PRN IV DECREASED GLUCOSE; Start 08/25/18 at 11:30 Glucagon (Glucagen) 1 mg Q15M PRN IM DECREASED GLUCOSE; Start 08/25/18 at 11:30 Glucose (Glutose) 15 gm Q15M PRN BUCCAL DECREASED GLUCOSE; Start 08/25/18 at 11:30 Carvedilol (Coreg) 12.5 mg BID PO Last administered on 08/25/18at 21:07; Admin Dose 12.5 MG; Start 08/25/18 at 21:00 Escitalopram Oxalate (Lexapro) 10 mg DAILY PO ; Start 08/26/18 at 09:00 Furosemide (Lasix) 40 mg BID DIURETICS PO Last administered on 08/26/18 05:51; Admin Dose 40 MG; Start 08/25/18 at 18:00 Isosorbide Mononitrate (Imdur) 30 mg DAILY PO ; Start 08/26/18 at 09:00 Nifedipine (Procardia Xl) 60 mg BID PO Last administered on 08/25/18 21:07; Admin Dose 60 MG; Start 08/25/18 at 21:00 Polyethylene Glycol (Miralax) 17 gm DAILY PO ; Start 08/26/18 at 09:00 IV Flush (NS 3 ml) 3 ml PER PROTOCOL IV ; Start 08/25/18 at 11:30 Ondansetron HCl (Zofran Inj) 4 mg Q6H PRN IV NAUSEA/VOMITING; Start 08/25/18 at 11:30 Heparin Sodium (Porcine) (Heparin (5000 Units/1ml)) 5,000 unit Q12 SC Last administered on 08/25/18at 21:10; Admin Dose 5,000 UNIT; Start 08/25/18 at 21:00 Hydromorphone HCl (Dilaudid) 1 mg Q4H PRN IV SEVERE PAIN LEVEL 7-10 Last administered on 08/26/18at 07:49; Admin Dose 1 MG; Start 08/25/18 at 16:30 Clonidine (Catapres) 0.2 mg Q6H PRN PO SBP > 190 Last administered on 08/25/18at 19:11; Admin Dose 0.2 MG; Start 08/25/18 at 19:00 Hydralazine HCl (Apresoline) 10 mg Q4H PRN IV ELEVATED BLOOD PRESSURE; Start 08/25/18 at 20:30 Tramadol HCl (Ultram) 50 mg Q6H PRN PO MODERATE PAIN LEVEL 4-6 Last administered on 08/26/18at 05:51; Admin Dose 50 MG; Start 08/26/18 at 05:30 WILFRED BRYAN MD August 26, 2018 10:51
[2018-08-26] MEDS: POLYETHYLENE GLYCOL 17 GM PACKET PO SCH (12:30)
[2018-08-26] MEDS: ISOSORBIDE MONONITRATE(SR)30 MG TAB PO SCH (12:33)
[2018-08-26] MEDS: NIFEdipine (XL) 60 MG TAB PO SCH ×2 (12:33→20:45)
[2018-08-26] MEDS: ESCITALOPRAM 10 MG TAB PO SCH (12:34)
[2018-08-26] MEDS: HEPARIN 5,000 UNIT/1 ML VIAL SC SCH ×2 (12:48→20:53)
--- NOTE | 2018-08-26 17:25 | CONS ---
Assessment/Plan Assessment/Plan Assessment/Plan (Daily) # Abdominal pain likely due to pancreatitis vs gastroparesis . The patient also had elevated troponins in past . Had a CT angio of the chest which showed 50% of the disease, nothing to be done by cardiology. The patient had CT of the chest which was negative for any pulmonary embolism. Patient also had a CT of the T and the L spine, which essentially showed some mild disease. The only thing the patient had some mild elevated lipase. Patient is status post cholecystectomy.? trauma due to insulin injection #Hypertension urgency #Diabetes # ESRD # sp cholecystectomy # dm retinopathy Plan - HD today - cw lasix 40 bid/nifepine 60 bid/coreg/imdur/clonidine - fluid restriction - pt will need effective pain regimen - consider GI eval ? ERCP S/P Cholecystectomy Consultation Date/Type/Reason Admit Date/Time August 25, 2018 at 10:10 Initial Consult Date Date/Time of Note DATE: 08/26/18 TIME: 17:23 24 HR Interval Summary Free Text/Dictation pain in luq better Exam/Review of Systems Exam Vitals Vital Signs Date Temp Pulse Resp B/P (MAP) Pulse Ox O2 O2 Flow FiO2 Time Delivery Rate 08/26/18 89 16:54 08/26/18 98.6 19 184/98 96 15:30 (126) 08/26/18 Room Air 08:15 Intake and Output 08/25/18 08/25/18 08/26/18 1515:00 23:00 07:00 IntakeIntake Total 560 ml 400 ml BalanceBalance 560 ml 400 ml Exam HEENT: Head is atraumatic, normocephalic. Pupils equal, reactive to light. NECK: Supple. No JVD. LUNGS: Clear. CARDIOVASCULAR: S1, S2 normal. ABDOMEN: Soft. tenderness on palpation. Pulses palpable. EXTREMITIES: No cyanosis, clubbing or edema. CENTRAL NERVOUS SYSTEM: The patient is awake, alert with no focal deficit. [facility] Results Result Diagram: 08/26/18 0453 08/26/18 0454 Results 24hrs Laboratory Tests Test 08/25/18 18:03 08/25/18 21:06 08/26/18 01:05 08/26/18 04:53 Bedside Glucose 170 212 148 White Blood Count 7.1 Red Blood Count 3.00 L Hemoglobin 9.1 L Hematocrit 28.2 L Mean Corpuscular 94.0 Volume Mean Corpuscular 30.3 Hemoglobin Mean Corpuscular 32.3 Hemoglobin Concent Red Cell 13.8 Distribution Width Platelet Count 179 Mean Platelet Volume 12.5 H Immature 0.300 Granulocytes % Neutrophils % 66.1 Lymphocytes % 19.3 Monocytes % 10.5 Eosinophils % 3.1 Basophils % 0.7 Nucleated Red Blood 0.0 Cells % Immature 0.020 Granulocytes # Neutrophils # 4.7 Lymphocytes # 1.4 Monocytes # 0.8 Eosinophils # 0.2 Basophils # 0.1 Nucleated Red Blood 0.0 Cells # Hemoglobin A1c 8.0 H Test 08/26/18 04:54 08/26/18 07:58 08/26/18 11:27 Sodium Level 139 Potassium Level 5.5 H Chloride Level 99 Carbon Dioxide Level 23 Anion Gap 17 H Blood Urea Nitrogen 74 H Creatinine 11.01 H Est Glomerular 5 L Filtrat Rate mL/min Glucose Level 136 # Calcium Level 7.9 L Total Bilirubin 0.2 Direct Bilirubin 0.00 Indirect Bilirubin 0.2 Aspartate Amino 14 L Transf (AST/SGOT) Alanine 18 Aminotransferase (AL T/SGPT) Alkaline Phosphatase 62 Total Protein 6.6 Albumin 3.7 Globulin 2.90 Albumin/Globulin 1.27 Ratio Lipase 664 H Bedside Glucose 181 188 Medications Medication Current Medications Insulin Glargine (Lantus) 15 units DAILY@2000 SC ; Start 08/25/18 at 20:00 Insulin Aspart (Novolog Insulin Pen) 5 unit WITH MEALS SC Last administered on 08/26/18at 11:34; Admin Dose 5 UNIT; Start 08/25/18 at 12:00 Insulin Aspart (Novolog Insulin Pen) NOVOLOG *MILD* ALGORITHM WITH MEALS BEDTIME SC Last administered on 08/26/18at 11:34; Admin Dose 2 UNIT; Start 08/25/18 at 12:00 Miscellaneous Information 1 ea NOTE XX ; Start 08/25/18 at 11:30 Glucose (Glutose) 15 gm Q15M PRN PO DECREASED GLUCOSE; Start 08/25/18 at 11:30 Glucose (Glutose) 22.5 gm Q15M PRN PO DECREASED GLUCOSE; Start 08/25/18 at 11:30 Dextrose (D50w Syringe) 25 ml Q15M PRN IV DECREASED GLUCOSE; Start 08/25/18 at 11:30 Dextrose (D50w Syringe) 50 ml Q15M PRN IV DECREASED GLUCOSE; Start 08/25/18 at 11:30 Glucagon (Glucagen) 1 mg Q15M PRN IM DECREASED GLUCOSE; Start 08/25/18 at 11:30 Glucose (Glutose) 15 gm Q15M PRN BUCCAL DECREASED GLUCOSE; Start 08/25/18 at 11:30 Carvedilol (Coreg) 12.5 mg BID PO Last administered on 08/26/18 12:34; Admin Dose 12.5 MG; Start 08/25/18 at 21:00 Escitalopram Oxalate (Lexapro) 10 mg DAILY PO Last administered on 08/26/18 12:34; Admin Dose 10 MG; Start 08/26/18 at 09:00 Furosemide (Lasix) 40 mg BID DIURETICS PO Last administered on 08/26/18 05:51; Admin Dose 40 MG; Start 08/25/18 at 18:00 Isosorbide Mononitrate (Imdur) 30 mg DAILY PO Last administered on 08/26/18 12:33; Admin Dose 30 MG; Start 08/26/18 at 09:00 Nifedipine (Procardia Xl) 60 mg BID PO Last administered on 08/26/18 12:33; Admin Dose 60 MG; Start 08/25/18 at 21:00 Polyethylene Glycol (Miralax) 17 gm DAILY PO ; Start 08/26/18 at 09:00 IV Flush (NS 3 ml) 3 ml PER PROTOCOL IV ; Start 08/25/18 at 11:30 Ondansetron HCl (Zofran Inj) 4 mg Q6H PRN IV NAUSEA/VOMITING; Start 08/25/18 at 11:30 Heparin Sodium (Porcine) (Heparin (5000 Units/1ml)) 5,000 unit Q12 SC Last administered on 08/26/18 12:48; Admin Dose 5,000 UNIT; Start 08/25/18 at 21:00 Hydromorphone HCl (Dilaudid) 1 mg Q4H PRN IV SEVERE PAIN LEVEL 7-10 Last administered on 08/26/18 12:35; Admin Dose 1 MG; Start 08/25/18 at 16:30 Clonidine (Catapres) 0.2 mg Q6H PRN PO SBP > 190 Last administered on 08/25/18 19:11; Admin Dose 0.2 MG; Start 08/25/18 at 19:00 Hydralazine HCl (Apresoline) 10 mg Q4H PRN IV ELEVATED BLOOD PRESSURE; Start 08/25/18 at 20:30 Tramadol HCl (Ultram) 50 mg Q6H PRN PO MODERATE PAIN LEVEL 4-6 Last administere d on 08/26/18at 05:51; Admin Dose 50 MG; Start 08/26/18 at 05:30 MIKE GIFFORD MD August 26, 2018 17:25
[2018-08-26] MEDS: hydrALAzine 20 MG INJ IV PRN (17:41)
[2018-08-26] MEDS: ONDANSETRON 4 MG INJ IV PRN ×2 (17:41→23:09)
[2018-08-26] MEDS: INSULIN GLARGINE [LANTus] (100 UNITS/ML) SYG SC SCH (20:00)
[2018-08-27] VITALS (12 sets, daily range): BP systolic 117–174; BP diastolic 62–94; PULSE 78–97; RESP 18–20
[2018-08-27] MEDS: HYDROmorphONE 1 MG/ML SYG IV PRN ×4 (04:00→21:22)
[2018-08-27] MEDS: FUROSEMIDE 40 MG TAB PO SCH ×2 (04:35→17:22)
[2018-08-27] MEDS: INSULIN ASPART [NOVOLOG] 3 ML PEN SC SCH ×7 (08:00→21:00)
[2018-08-27] MEDS: HEPARIN 5,000 UNIT/1 ML VIAL SC SCH ×2 (08:58→21:00)
[2018-08-27] MEDS: POLYETHYLENE GLYCOL 17 GM PACKET PO SCH (09:00)
[2018-08-27] MEDS: ESCITALOPRAM 10 MG TAB PO SCH (09:18)
[2018-08-27] MEDS: NIFEdipine (XL) 60 MG TAB PO SCH ×3 (09:19→21:11)
[2018-08-27] MEDS: ISOSORBIDE MONONITRATE(SR)30 MG TAB PO SCH (09:31)
--- NOTE | 2018-08-27 10:29 | CONS ---
Assessment/Plan Assessment/Plan Assessment/Plan (Daily) # Abdominal pain likely due to pancreatitis vs gastroparesis . The patient also had elevated troponins in past . Had a CT angio of the chest which showed 50% of the disease, nothing to be done by cardiology. The patient had CT of the chest which was negative for any pulmonary embolism. Patient also had a CT of the T and the L spine, which essentially showed some mild disease. The only thing the patient had some mild elevated lipase. Patient is status post cholecystectomy.? trauma due to insulin injection #Hypertension urgency #Diabetes # ESRD # sp cholecystectomy # dm retinopathy Plan - HD TTS - cw lasix 40 bid/nifepine 60 bid/coreg/imdur/clonidine - fluid restriction - pt will need effective pain home regimen - consider GI eval ? ERCP S/P Cholecystectomy Consultation Date/Type/Reason Admit Date/Time August 25, 2018 at 10:10 Initial Consult Date Date/Time of Note DATE: 08/27/18 TIME: 10:28 24 HR Interval Summary Free Text/Dictation No acute events. requiring pain meds and sleeping Exam/Review of Systems Exam Vitals Vital Signs Date Temp Pulse Resp B/P (MAP) Pulse Ox O2 O2 Flow FiO2 Time Delivery Rate 08/27/18 92 08:18 08/27/18 98.3 20 124/70 92 07:29 (88) 08/26/18 Room Air 08:15 Intake and Output 08/26/18 08/26/18 08/27/18 1515:00 23:00 07:00 IntakeIntake Total 300 ml 500 ml OutputOutput Total 2600 ml 400 ml BalanceBalance -2600 ml -100 ml 500 ml Exam Exam HEENT: Head is atraumatic, normocephalic. Pupils equal, reactive to light. NECK: Supple. No JVD. LUNGS: Clear. CARDIOVASCULAR: S1, S2 normal. ABDOMEN: Soft. tenderness on palpation. Pulses palpable. EXTREMITIES: No cyanosis, clubbing or edema. CENTRAL NERVOUS SYSTEM: The patient is awake, alert with no focal deficit. [facility] Results Result Diagram: 08/27/18 0457 08/27/18 0458 Results 24hrs Laboratory Tests Test 08/26/18 11:27 08/26/18 17:30 08/26/18 20:44 08/27/18 04:57 Bedside Glucose 188 172 115 White Blood Count 7.5 Red Blood Count 3.22 L Hemoglobin 9.8 L Hematocrit 30.1 L Mean Corpuscular 93.5 Volume Mean Corpuscular 30.4 Hemoglobin Mean Corpuscular 32.6 Hemoglobin Concent Red Cell 13.7 Distribution Width Platelet Count 196 Mean Platelet Volume 12.5 H Immature 0.300 Granulocytes % Neutrophils % 67.7 Lymphocytes % 17.4 Monocytes % 11.2 H Eosinophils % 2.5 Basophils % 0.9 Nucleated Red Blood 0.0 Cells % Immature 0.020 Granulocytes # Neutrophils # 5.1 Lymphocytes # 1.3 Monocytes # 0.8 Eosinophils # 0.2 Basophils # 0.1 Nucleated Red Blood 0.0 Cells # Lipase 601 H Test 08/27/18 04:58 08/27/18 07:38 Sodium Level 137 Potassium Level 4.7 Chloride Level 98 Carbon Dioxide Level 26 Anion Gap 13 Blood Urea Nitrogen 48 #H Creatinine 8.65 #H Glucose Level 134 Calcium Level 8.4 Phosphorus Level 7.9 H Magnesium Level 2.3 Albumin 4.1 Bedside Glucose 137 Medications Medication Current Medications Insulin Glargine (Lantus) 15 units DAILY@2000 SC ; Start 08/25/18 at 20:00 Insulin Aspart (Novolog Insulin Pen) 5 unit WITH MEALS SC Last administered on 08/27/18at 08:57; Admin Dose 5 UNIT; Start 08/25/18 at 12:00 Insulin Aspart (Novolog Insulin Pen) NOVOLOG *MILD* ALGORITHM WITH MEALS BEDTIME SC Last administered on 08/26/18at 18:23; Admin Dose 1 UNIT; Start 08/25/18 at 12:00 Miscellaneous Information 1 ea NOTE XX ; Start 08/25/18 at 11:30 Glucose (Glutose) 15 gm Q15M PRN PO DECREASED GLUCOSE; Start 08/25/18 at 11:30 Glucose (Glutose) 22.5 gm Q15M PRN PO DECREASED GLUCOSE; Start 08/25/18 at 11:30 Dextrose (D50w Syringe) 25 ml Q15M PRN IV DECREASED GLUCOSE; Start 08/25/18 at 11:30 Dextrose (D50w Syringe) 50 ml Q15M PRN IV DECREASED GLUCOSE; Start 08/25/18 at 11:30 Glucagon (Glucagen) 1 mg Q15M PRN IM DECREASED GLUCOSE; Start 08/25/18 at 11:30 Glucose (Glutose) 15 gm Q15M PRN BUCCAL DECREASED GLUCOSE; Start 08/25/18 at 11:30 Carvedilol (Coreg) 12.5 mg BID PO Last administered on 08/27/18 08:52; Admin Dose 12.5 MG; Start 08/25/18 at 21:00 Escitalopram Oxalate (Lexapro) 10 mg DAILY PO Last administered on 08/27/18 09:18; Admin Dose 10 MG; Start 08/26/18 at 09:00 Furosemide (Lasix) 40 mg BID DIURETICS PO Last administered on 08/27/18 04:35; Admin Dose 40 MG; Start 08/25/18 at 18:00 Isosorbide Mononitrate (Imdur) 30 mg DAILY PO Last administered on 08/27/18 09:31; Admin Dose 30 MG; Start 08/26/18 at 09:00 Nifedipine (Procardia Xl) 60 mg BID PO Last administered on 08/27/18 10:14; Admin Dose 60 MG; Start 08/25/18 at 21:00 Polyethylene Glycol (Miralax) 17 gm DAILY PO ; Start 08/26/18 at 09:00 IV Flush (NS 3 ml) 3 ml PER PROTOCOL IV ; Start 08/25/18 at 11:30 Ondansetron HCl (Zofran Inj) 4 mg Q6H PRN IV NAUSEA/VOMITING Last administered on 08/26/18 23:09; Admin Dose 4 MG; Start 08/25/18 at 11:30 Heparin Sodium (Porcine) (Heparin (5000 Units/1ml)) 5,000 unit Q12 SC Last administered on 08/27/18 08:58; Admin Dose 5,000 UNIT; Start 08/25/18 at 21:00 Hydromorphone HCl (Dilaudid) 1 mg Q4H PRN IV SEVERE PAIN LEVEL 7-10 Last administered on 08/27/18 09:18; Admin Dose 1 MG; Start 08/25/18 at 16:30 Clonidine (Catapres) 0.2 mg Q6H PRN PO SBP > 190 Last administered on 08/25/18 19:11; Admin Dose 0.2 MG; Start 08/25/18 at 19:00 Hydralazine HCl (Apresoline) 10 mg Q4H PRN IV ELEVATED BLOOD PRESSURE Last admi nistered on 08/26/18at 17:41; Admin Dose 10 MG; Start 08/25/18 at 20:30 Tramadol HCl (Ultram) 50 mg Q6H PRN PO MODERATE PAIN LEVEL 4-6 Last administered on 08/26/18at 05:51; Admin Dose 50 MG; Start 08/26/18 at 05:30 MIKE GIFFORD MD August 27, 2018 10:29
[2018-08-27] MEDS ORDERED: HEPARIN 1000 UNITS/ML 10 ML INJ CATHETER SCH (10:30)
--- NOTE | 2018-08-27 11:26 | PN ---
Date/Time of Note Date/Time of Note DATE: 08/27/18 TIME: 11:26 Assessment/Plan VTE Prophylaxis Risk score (from Nsg)>0 risk: 1 SCD applied (from Nsg): No SCD contraindicated: low risk/ambulating Pharmacological prophylaxis: heparin Lines/Catheters IV Catheter Type (from Nrsg): Saline Lock Urinary Cath still in place: No Assessment/Plan Assessment/Plan 1. Acute pancreatitis- improving - lipase trending downward - will advance diet - encouraged PO pain controlled 2. Diabetes Mellitus - A1c noted - ISS and accuchecks 3. ESRD on HD - Nephrology on board for HD management 4. HTN urgency- resolved - BP control and will adjust medications as needed - improved after HD 5. Anemia of chronic disease - no reji bleeding noted - stable and no need for transfusions at this time 6. Disposition - Will advance diet as tolerated and adjust PO pain control. Once tolerating PO intake and pain is controlled, will d/c home Result Diagram: 08/27/18 0457 08/27/18 0458 Results 24hrs Laboratory Tests Test 08/26/18 11:27 08/26/18 17:30 08/26/18 20:44 08/27/18 04:57 Bedside Glucose 188 172 115 White Blood Count 7.5 Red Blood Count 3.22 L Hemoglobin 9.8 L Hematocrit 30.1 L Mean Corpuscular 93.5 Volume Mean Corpuscular 30.4 Hemoglobin Mean Corpuscular 32.6 Hemoglobin Concent Red Cell 13.7 Distribution Width Platelet Count 196 Mean Platelet Volume 12.5 H Immature 0.300 Granulocytes % Neutrophils % 67.7 Lymphocytes % 17.4 Monocytes % 11.2 H Eosinophils % 2.5 Basophils % 0.9 Nucleated Red Blood 0.0 Cells % Immature 0.020 Granulocytes # Neutrophils # 5.1 Lymphocytes # 1.3 Monocytes # 0.8 Eosinophils # 0.2 Basophils # 0.1 Nucleated Red Blood 0.0 Cells # Lipase 601 H Test 08/27/18 04:58 08/27/18 07:38 Sodium Level 137 Potassium Level 4.7 Chloride Level 98 Carbon Dioxide Level 26 Anion Gap 13 Blood Urea Nitrogen 48 #H Creatinine 8.65 #H Glucose Level 134 Calcium Level 8.4 Phosphorus Level 7.9 H Magnesium Level 2.3 Albumin 4.1 Bedside Glucose 137 Subjective 24 Hr Interval Summary Free Text/Dictation Patient is still with pain in mid back area but states not associated with food. No acute overnight events. Exam/Review of Systems Exam Vitals Vital Signs Date Temp Pulse Resp B/P (MAP) Pulse Ox O2 O2 Flow FiO2 Time Delivery Rate 08/27/18 92 08:18 08/27/18 98.3 20 124/70 92 07:29 (88) 08/26/18 Room Air 08:15 Intake and Output 08/26/18 08/26/18 08/27/18 1515:00 23:00 07:00 IntakeIntake Total 300 ml 500 ml OutputOutput Total 2600 ml 400 ml BalanceBalance -2600 ml -100 ml 500 ml Exam General: Patient is in no acute distress. answering questions appropriately Neck: Supple Chest: Nontender Lungs: Clear to auscultation bilaterally, no wheezing or rhonchi Heart: Normal S1-S2, Regular rhythm and rate. No murmur, S3, or S4 Abdomen: Soft , mild epigastric tenderness, nondistended , bowel sounds are present. No guarding no rebound tenderness Extremities: Normal to inspection, no cyanosis or clubbing or edema Skin: no rashes or lesions Results Results 24hrs Laboratory Tests Test 08/26/18 11:27 08/26/18 17:30 08/26/18 20:44 08/27/18 04:57 Bedside Glucose 188 172 115 White Blood Count 7.5 Red Blood Count 3.22 L Hemoglobin 9.8 L Hematocrit 30.1 L Mean Corpuscular 93.5 Volume Mean Corpuscular 30.4 Hemoglobin Mean Corpuscular 32.6 Hemoglobin Concent Red Cell 13.7 Distribution Width Platelet Count 196 Mean Platelet Volume 12.5 H Immature 0.300 Granulocytes % Neutrophils % 67.7 Lymphocytes % 17.4 Monocytes % 11.2 H Eosinophils % 2.5 Basophils % 0.9 Nucleated Red Blood 0.0 Cells % Immature 0.020 Granulocytes # Neutrophils # 5.1 Lymphocytes # 1.3 Monocytes # 0.8 Eosinophils # 0.2 Basophils # 0.1 Nucleated Red Blood 0.0 Cells # Lipase 601 H Test 08/27/18 04:58 08/27/18 07:38 Sodium Level 137 Potassium Level 4.7 Chloride Level 98 Carbon Dioxide Level 26 Anion Gap 13 Blood Urea Nitrogen 48 #H Creatinine 8.65 #H Glucose Level 134 Calcium Level 8.4 Phosphorus Level 7.9 H Magnesium Level 2.3 Albumin 4.1 Bedside Glucose 137 Medications Medication Current Medications Insulin Glargine (Lantus) 15 units DAILY@2000 SC ; Start 08/25/18 at 20:00 Insulin Aspart (Novolog Insulin Pen) 5 unit WITH MEALS SC Last administered on 08/27/18 08:57; Admin Dose 5 UNIT; Start 08/25/18 at 12:00 Insulin Aspart (Novolog Insulin Pen) NOVOLOG *MILD* ALGORITHM WITH MEALS BEDTIME SC Last administered on 08/26/18 18:23; Admin Dose 1 UNIT; Start 08/25/18 at 12:00 Miscellaneous Information 1 ea NOTE XX ; Start 08/25/18 at 11:30 Glucose (Glutose) 15 gm Q15M PRN PO DECREASED GLUCOSE; Start 08/25/18 at 11:30 Glucose (Glutose) 22.5 gm Q15M PRN PO DECREASED GLUCOSE; Start 08/25/18 at 11:30 Dextrose (D50w Syringe) 25 ml Q15M PRN IV DECREASED GLUCOSE; Start 08/25/18 at 11:30 Dextrose (D50w Syringe) 50 ml Q15M PRN IV DECREASED GLUCOSE; Start 08/25/18 at 11:30 Glucagon (Glucagen) 1 mg Q15M PRN IM DECREASED GLUCOSE; Start 08/25/18 at 11:30 Glucose (Glutose) 15 gm Q15M PRN BUCCAL DECREASED GLUCOSE; Start 08/25/18 at 11:30 Carvedilol (Coreg) 12.5 mg BID PO Last administered on 08/27/18at 08:52; Admin Dose 12.5 MG; Start 08/25/18 at 21:00 Escitalopram Oxalate (Lexapro) 10 mg DAILY PO Last administered on 08/27/18 09:18; Admin Dose 10 MG; Start 08/26/18 at 09:00 Furosemide (Lasix) 40 mg BID DIURETICS PO Last administered on 08/27/18 04:35; Admin Dose 40 MG; Start 08/25/18 at 18:00 Isosorbide Mononitrate (Imdur) 30 mg DAILY PO Last administered on 08/27/18 09:31; Admin Dose 30 MG; Start 08/26/18 at 09:00 Nifedipine (Procardia Xl) 60 mg BID PO Last administered on 5/29/19at 10:14; Admin Dose 60 MG; Start 08/25/18 at 21:00 Polyethylene Glycol (Miralax) 17 gm DAILY PO ; Start 08/26/18 at 09:00 IV Flush (NS 3 ml) 3 ml PER PROTOCOL IV ; Start 08/25/18 at 11:30 Ondansetron HCl (Zofran Inj) 4 mg Q6H PRN IV NAUSEA/VOMITING Last administered on 08/26/18at 23:09; Admin Dose 4 MG; Start 08/25/18 at 11:30 Heparin Sodium (Porcine) (Heparin (5000 Units/1ml)) 5,000 unit Q12 SC Last administered on 08/27/18at 08:58; Admin Dose 5,000 UNIT; Start 08/25/18 at 21:00 Hydromorphone HCl (Dilaudid) 1 mg Q4H PRN IV SEVERE PAIN LEVEL 7-10 Last administered on 08/27/18at 09:18; Admin Dose 1 MG; Start 08/25/18 at 16:30 Clonidine (Catapres) 0.2 mg Q6H PRN PO SBP > 190 Last administered on 08/25/18at 19:11; Admin Dose 0.2 MG; Start 08/25/18 at 19:00 Hydralazine HCl (Apresoline) 10 mg Q4H PRN IV ELEVATED BLOOD PRESSURE Last administered on 08/26/18at 17:41; Admin Dose 10 MG; Start 08/25/18 at 20:30 Tramadol HCl (Ultram) 50 mg Q6H PRN PO MODERATE PAIN LEVEL 4-6 Last administered on 08/26/18at 05:51; Admin Dose 50 MG; Start 08/26/18 at 05:30 Heparin Sodium (Porcine) (Heparin (1000 Units/ml)) 4,000 unit AFTER DIALYSIS CATHETER ; Start 08/27/18 at 10:30 WILFRED BRYAN MD August 27, 2018 11:26
[2018-08-27] MEDS ORDERED: OXYCODONE/ACETAMINOPHEN (10/325) TAB PO PRN (11:30)
[2018-08-27] MEDS ORDERED: OXYCODONE/ACETAMINOPHEN (5/325) TAB PO PRN (11:30)
[2018-08-27] MEDS: ONDANSETRON 4 MG INJ IV PRN (17:31)
[2018-08-27] MEDS: INSULIN GLARGINE [LANTus] (100 UNITS/ML) SYG SC SCH (21:15)
[2018-08-28] VITALS (28 sets, daily range): BP systolic 135–209; BP diastolic 62–117; PULSE 78–102; RESP 18–20
[2018-08-28] MEDS: HYDROmorphONE 1 MG/ML SYG IV PRN ×2 (02:10→08:13)
[2018-08-28] MEDS: FUROSEMIDE 40 MG TAB PO SCH ×2 (06:15→17:17)
[2018-08-28] MEDS: POLYETHYLENE GLYCOL 17 GM PACKET PO SCH (08:09)
[2018-08-28] MEDS: NIFEdipine (XL) 60 MG TAB PO SCH ×2 (08:10→21:08)
[2018-08-28] MEDS: ISOSORBIDE MONONITRATE(SR)30 MG TAB PO SCH (08:10)
[2018-08-28] MEDS: ESCITALOPRAM 10 MG TAB PO SCH (08:10)
[2018-08-28] MEDS: HEPARIN 5,000 UNIT/1 ML VIAL SC SCH ×2 (08:18→21:37)
[2018-08-28] MEDS: INSULIN ASPART [NOVOLOG] 3 ML PEN SC SCH ×7 (08:19→21:00)
[2018-08-28] MEDS: ONDANSETRON 4 MG INJ IV PRN (08:26)
[2018-08-28] MEDS: hydrALAzine 20 MG INJ IV PRN (10:14)
[2018-08-28] MEDS: HYDROmorphONE 2 MG/ML SYG IV PRN ×3 (10:34→21:11)
[2018-08-28] MEDS ORDERED: HEPARIN 1000 UNITS/ML 10 ML INJ CATHETER SCH (11:30)
[2018-08-28] MEDS: CALCIUM ACETATE 667 MG CAP PO SCH ×2 (12:15→17:16)
[2018-08-28] MEDS ORDERED: METOCLOPRAMIDE 10 MG INJ IV PRN (12:30)
[2018-08-28] MEDS ORDERED: HYDROmorphONE 2 MG/ML SYG IV PRN (12:30)
--- NOTE | 2018-08-28 15:04 | CONS ---
Assessment/Plan Assessment/Plan Assessment/Plan (Daily) # Abdominal pain likely due to pancreatitis vs gastroparesis . The patient also had elevated troponins in past . Had a CT angio of the chest which showed 50% of the disease, nothing to be done by cardiology. The patient had CT of the chest which was negative for any pulmonary embolism. Patient also had a CT of the T and the L spine, which essentially showed some mild disease. The only thing the patient had some mild elevated lipase. Patient is status post cholecystectomy.? trauma due to insulin injection #Hypertension urgency #Diabetes # ESRD # sp cholecystectomy # dm retinopathy Plan - HD TTS , hd today - cw lasix 40 bid/nifepine 60 bid/coreg/imdur/clonidine - recheck BP after HD today - fluid restriction - pt will need effective pain regimen - consider GI eval ? ERCP S/P Cholecystectomy Consultation Date/Type/Reason Admit Date/Time August 25, 2018 at 10:10 Initial Consult Date Date/Time of Note DATE: 08/28/18 TIME: 15:02 24 HR Interval Summary Free Text/Dictation still having pain BP high, hd in progress Exam/Review of Systems Exam Vitals Vital Signs Date Temp Pulse Resp B/P (MAP) Pulse Ox O2 O2 Flow FiO2 Time Delivery Rate 08/28/18 85 13:15 08/28/18 98.6 20 155/62 98 11:46 (93) 08/28/18 Room Air 10:00 Intake and Output 08/27/18 08/27/18 08/28/18 1515:00 23:00 07:00 IntakeIntake Total 1300 ml 300 ml BalanceBalance 1300 ml 300 ml Exam HEENT: Head is atraumatic, normocephalic. Pupils equal, reactive to light. NECK: Supple. No JVD. LUNGS: Clear. CARDIOVASCULAR: S1, S2 normal. ABDOMEN: Soft. tenderness on palpation. Pulses palpable. EXTREMITIES: No cyanosis, clubbing or edema. CENTRAL NERVOUS SYSTEM: The patient is awake, alert with no focal deficit. [facility] Results Result Diagram: 08/28/18 0508/28/18 05 Results 24hrs Laboratory Tests Test 08/27/18 17:20 08/27/18 21:09 08/28/18 05:26 08/28/18 08:04 Bedside Glucose 265 H 177 166 White Blood Count 5.6 # Red Blood Count 3.09 L Hemoglobin 9.3 L Hematocrit 28.6 L Mean Corpuscular 92.6 Volume Mean Corpuscular 30.1 Hemoglobin Mean Corpuscular 32.5 Hemoglobin Concent Red Cell 13.6 Distribution Width Platelet Count 184 Mean Platelet Volume 12.5 H Immature 0.400 Granulocytes % Neutrophils % 60.4 Lymphocytes % 22.0 Monocytes % 13.2 H Eosinophils % 2.9 Basophils % 1.1 Nucleated Red Blood 0.0 Cells % Immature 0.020 Granulocytes # Neutrophils # 3.4 Lymphocytes # 1.2 Monocytes # 0.7 Eosinophils # 0.2 Basophils # 0.1 Nucleated Red Blood 0.0 Cells # Sodium Level 137 Potassium Level 4.9 Chloride Level 94 L Carbon Dioxide Level 29 Anion Gap 14 H Blood Urea Nitrogen 64 H Creatinine 10.36 H Glucose Level 172 Calcium Level 8.0 L Phosphorus Level 10.2 #H Magnesium Level 2.5 Albumin 3.8 Lipase 881 H Test 08/28/18 12:11 Bedside Glucose 85 Medications Medication Current Medications Insulin Glargine (Lantus) 15 units DAILY@2000 SC Last administered on 08/27/18at 21:15; Admin Dose 15 UNITS; Start 08/25/18 at 20:00 Insulin Aspart (Novolog Insulin Pen) 5 unit WITH MEALS SC Last administered on 08/28/18at 08:19; Admin Dose 5 UNIT; Start 08/25/18 at 12:00 Insulin Aspart (Novolog Insulin Pen) NOVOLOG *MILD* ALGORITHM WITH MEALS BEDTIME SC Last administered on 08/28/18at 08:20; Admin Dose 1 UNIT; Start 08/25/18 at 12:00 Miscellaneous Information 1 ea NOTE XX ; Start 08/25/18 at 11:30 Glucose (Glutose) 15 gm Q15M PRN PO DECREASED GLUCOSE; Start 08/25/18 at 11:30 Glucose (Glutose) 22.5 gm Q15M PRN PO DECREASED GLUCOSE; Start 08/25/18 at 11:30 Dextrose (D50w Syringe) 25 ml Q15M PRN IV DECREASED GLUCOSE; Start 08/25/18 at 11:30 Dextrose (D50w Syringe) 50 ml Q15M PRN IV DECREASED GLUCOSE; Start 08/25/18 at 11:30 Glucagon (Glucagen) 1 mg Q15M PRN IM DECREASED GLUCOSE; Start 08/25/18 at 11:30 Glucose (Glutose) 15 gm Q15M PRN BUCCAL DECREASED GLUCOSE; Start 08/25/18 at 11:30 Carvedilol (Coreg) 12.5 mg BID PO Last administered on 08/28/18 08:10; Admin Dose 12.5 MG; Start 08/25/18 at 21:00 Escitalopram Oxalate (Lexapro) 10 mg DAILY PO Last administered on 08/28/18 08:10; Admin Dose 10 MG; Start 08/26/18 at 09:00 Furosemide (Lasix) 40 mg BID DIURETICS PO Last administered on 08/28/18 06:15; Admin Dose 40 MG; Start 08/25/18 at 18:00 Isosorbide Mononitrate (Imdur) 30 mg DAILY PO Last administered on 08/28/18 08:10; Admin Dose 30 MG; Start 08/26/18 at 09:00 Nifedipine (Procardia Xl) 60 mg BID PO Last administered on 08/28/18 08:10; Admin Dose 60 MG; Start 08/25/18 at 21:00 Polyethylene Glycol (Miralax) 17 gm DAILY PO Last administered on 08/28/18 08:09; Admin Dose 17 GM; Start 08/26/18 at 09:00 IV Flush (NS 3 ml) 3 ml PER PROTOCOL IV ; Start 08/25/18 at 11:30 Ondansetron HCl (Zofran Inj) 4 mg Q6H PRN IV NAUSEA/VOMITING Last administered on 08/28/18 08:26; Admin Dose 4 MG; Start 08/25/18 at 11:30 Heparin Sodium (Porcine) (Heparin (5000 Units/1ml)) 5,000 unit Q12 SC Last administered on 08/28/18 08:18; Admin Dose 5,000 UNIT; Start 08/25/18 at 21:00 Clonidine (Catapres) 0.2 mg Q6H PRN PO SBP > 190 Last administered on 08/25/18 19:11; Admin Dose 0.2 MG; Start 08/25/18 at 19:00 Hydralazine HCl (Apresoline) 10 mg Q4H PRN IV ELEVATED BLOOD PRESSURE Last administered on 08/28/18 10:14; Admin Dose 10 MG; Start 08/25/18 at 20:30 Tramadol HCl (Ultram) 50 mg Q6H PRN PO PAIN LEVEL 1-3 Last administered on 08/26/18 05:51; Admin Dose 50 MG; Start 08/26/18 at 05:30 Oxycodone/ Acetaminophen (Endocet (10/ 325)) 1 tab Q6H PRN PO SEVERE PAIN LEVEL 7-10; Start 08/27/18 at 11:30 Oxycodone/ Acetaminophen (Percocet (5/ 325)) 1 tab Q6H PRN PO MODERATE PAIN LEVEL 4-6 Last administered on 08/27/18at 17:43; Admin Dose 1 TAB; Start 08/27/18 at 11:30 Calcium Acetate (Phoslo) 2,001 mg WITH MEALS PO Last administered on 08/28/18at 12:15; Admin Dose 2,001 MG; Start 08/28/18 at 12:00 Hydromorphone HCl (Dilaudid) 1.5 mg Q4H PRN IV SEVERE PAIN LEVEL 7-10 Last administered on 08/28/18at 10:34; Admin Dose 1.5 MG; Start 08/28/18 at 10:30 Heparin Sodium (Porcine) (Heparin (1000 Units/ml)) 3,300 unit AFTER DIALYSIS CATHETER Last administered on 08/28/18at 13:26; Admin Dose 3,300 UNIT; Start 08/28/18 at 11:30 Metoclopramide HCl (Reglan) 5 mg Q4H PRN IV nausea; Start 08/28/18 at 12:30 Metoclopramide HCl (Reglan) 5 mg Q6 IV ; Start 08/28/18 at 18:00 MIKE GIFFORD MD August 28, 2018 15:04
--- NOTE | 2018-08-28 15:29 | PN ---
Date/Time of Note Date/Time of Note DATE: 08/28/18 TIME: 15:26 Assessment/Plan VTE Prophylaxis Risk score (from Nsg)>0 risk: 0 SCD applied (from Nsg): Yes Pharmacological prophylaxis: heparin Lines/Catheters IV Catheter Type (from Nrsg): Saline Lock Urinary Cath still in place: No Assessment/Plan Assessment/Plan 1. Acute pancreatitis - still with nausea and vomiting - GI consulted and may perform ERCP to check for small stones in CBD contributing to pain - will place back on clear diet - encouraged PO pain controlled 2. Diabetes Mellitus - A1c noted - ISS and accuchecks 3. ESRD on HD - Nephrology on board for HD management 4. HTN urgency- resolved - BP control and will adjust medications as needed - improved after HD 5. Anemia of chronic disease - no reji bleeding noted - stable and no need for transfusions at this time 6. Disposition - Gi consulted for further recommendations given PO intolerance and persistent epigastric pain Result Diagram: 08/28/18 0526 08/28/18 0526 Results 24hrs Laboratory Tests Test 08/27/18 17:20 08/27/18 21:09 08/28/18 05:26 08/28/18 08:04 Bedside Glucose 265 H 177 166 White Blood Count 5.6 # Red Blood Count 3.09 L Hemoglobin 9.3 L Hematocrit 28.6 L Mean Corpuscular 92.6 Volume Mean Corpuscular 30.1 Hemoglobin Mean Corpuscular 32.5 Hemoglobin Concent Red Cell 13.6 Distribution Width Platelet Count 184 Mean Platelet Volume 12.5 H Immature 0.400 Granulocytes % Neutrophils % 60.4 Lymphocytes % 22.0 Monocytes % 13.2 H Eosinophils % 2.9 Basophils % 1.1 Nucleated Red Blood 0.0 Cells % Immature 0.020 Granulocytes # Neutrophils # 3.4 Lymphocytes # 1.2 Monocytes # 0.7 Eosinophils # 0.2 Basophils # 0.1 Nucleated Red Blood 0.0 Cells # Sodium Level 137 Potassium Level 4.9 Chloride Level 94 L Carbon Dioxide Level 29 Anion Gap 14 H Blood Urea Nitrogen 64 H Creatinine 10.36 H Glucose Level 172 Calcium Level 8.0 L Phosphorus Level 10.2 #H Magnesium Level 2.5 Albumin 3.8 Lipase 881 H Test 08/28/18 12:11 Bedside Glucose 85 Subjective 24 Hr Interval Summary Free Text/Dictation Patient still with pain in epigastric area radiating to back. vomiting this am and no relief with Zofran. Exam/Review of Systems Exam Vitals Vital Signs Date Temp Pulse Resp B/P (MAP) Pulse Ox O2 O2 Flow FiO2 Time Delivery Rate 08/28/18 85 13:15 08/28/18 98.6 20 155/62 98 11:46 (93) 08/28/18 Room Air 10:00 Intake and Output 08/27/18 08/27/18 08/28/18 1515:00 23:00 07:00 IntakeIntake Total 1300 ml 300 ml BalanceBalance 1300 ml 300 ml Exam General: Patient is in acute distress due to nausea. answering questions appropriately Lungs: Clear to auscultation bilaterally, no wheezing or rhonchi Heart: Normal S1-S2, Regular rhythm and rate. No murmur, S3, or S4 Abdomen: Soft ,epigastric tenderness, nondistended , bowel sounds are present. No guarding no rebound tenderness Extremities: Normal to inspection, no cyanosis or clubbing or edema Skin: no rashes or lesions Results Results 24hrs Laboratory Tests Test 08/27/18 17:20 08/27/18 21:09 08/28/18 05:26 08/28/18 08:04 Bedside Glucose 265 H 177 166 White Blood Count 5.6 # Red Blood Count 3.09 L Hemoglobin 9.3 L Hematocrit 28.6 L Mean Corpuscular 92.6 Volume Mean Corpuscular 30.1 Hemoglobin Mean Corpuscular 32.5 Hemoglobin Concent Red Cell 13.6 Distribution Width Platelet Count 184 Mean Platelet Volume 12.5 H Immature 0.400 Granulocytes % Neutrophils % 60.4 Lymphocytes % 22.0 Monocytes % 13.2 H Eosinophils % 2.9 Basophils % 1.1 Nucleated Red Blood 0.0 Cells % Immature 0.020 Granulocytes # Neutrophils # 3.4 Lymphocytes # 1.2 Monocytes # 0.7 Eosinophils # 0.2 Basophils # 0.1 Nucleated Red Blood 0.0 Cells # Sodium Level 137 Potassium Level 4.9 Chloride Level 94 L Carbon Dioxide Level 29 Anion Gap 14 H Blood Urea Nitrogen 64 H Creatinine 10.36 H Glucose Level 172 Calcium Level 8.0 L Phosphorus Level 10.2 #H Magnesium Level 2.5 Albumin 3.8 Lipase 881 H Test 08/28/18 12:11 Bedside Glucose 85 Medications Medication Current Medications Insulin Glargine (Lantus) 15 units DAILY@2000 SC Last administered on 08/27/18 21:15; Admin Dose 15 UNITS; Start 08/25/18 at 20:00 Insulin Aspart (Novolog Insulin Pen) 5 unit WITH MEALS SC Last administered on 08/28/18 08:19; Admin Dose 5 UNIT; Start 08/25/18 at 12:00 Insulin Aspart (Novolog Insulin Pen) NOVOLOG *MILD* ALGORITHM WITH MEALS BEDTIME SC Last administered on 08/28/18 08:20; Admin Dose 1 UNIT; Start 08/25/18 at 12:00 Miscellaneous Information 1 ea NOTE XX ; Start 08/25/18 at 11:30 Glucose (Glutose) 15 gm Q15M PRN PO DECREASED GLUCOSE; Start 08/25/18 at 11:30 Glucose (Glutose) 22.5 gm Q15M PRN PO DECREASED GLUCOSE; Start 08/25/18 at 11:30 Dextrose (D50w Syringe) 25 ml Q15M PRN IV DECREASED GLUCOSE; Start 08/25/18 at 11:30 Dextrose (D50w Syringe) 50 ml Q15M PRN IV DECREASED GLUCOSE; Start 08/25/18 at 11:30 Glucagon (Glucagen) 1 mg Q15M PRN IM DECREASED GLUCOSE; Start 08/25/18 at 11:30 Glucose (Glutose) 15 gm Q15M PRN BUCCAL DECREASED GLUCOSE; Start 08/25/18 at 11:30 Carvedilol (Coreg) 12.5 mg BID PO Last administered on 08/28/18 08:10; Admin Dose 12.5 MG; Start 08/25/18 at 21:00 Escitalopram Oxalate (Lexapro) 10 mg DAILY PO Last administered on 08/28/18 08:10; Admin Dose 10 MG; Start 08/26/18 at 09:00 Furosemide (Lasix) 40 mg BID DIURETICS PO Last administered on 08/28/18 06:15; Admin Dose 40 MG; Start 08/25/18 at 18:00 Isosorbide Mononitrate (Imdur) 30 mg DAILY PO Last administered on 08/28/18 08:10; Admin Dose 30 MG; Start 08/26/18 at 09:00 Nifedipine (Procardia Xl) 60 mg BID PO Last administered on 08/28/18 08:10; Admin Dose 60 MG; Start 08/25/18 at 21:00 Polyethylene Glycol (Miralax) 17 gm DAILY PO Last administered on 08/28/18 08:09; Admin Dose 17 GM; Start 08/26/18 at 09:00 IV Flush (NS 3 ml) 3 ml PER PROTOCOL IV ; Start 08/25/18 at 11:30 Ondansetron HCl (Zofran Inj) 4 mg Q6H PRN IV NAUSEA/VOMITING Last administered on 08/28/18 08:26; Admin Dose 4 MG; Start 08/25/18 at 11:30 Heparin Sodium (Porcine) (Heparin (5000 Units/1ml)) 5,000 unit Q12 SC Last administered on 08/28/18 08:18; Admin Dose 5,000 UNIT; Start 08/25/18 at 21:00 Clonidine (Catapres) 0.2 mg Q6H PRN PO SBP > 190 Last administered on 08/25/18 19:11; Admin Dose 0.2 MG; Start 08/25/18 at 19:00 Hydralazine HCl (Apresoline) 10 mg Q4H PRN IV ELEVATED BLOOD PRESSURE Last administered on 08/28/18 10:14; Admin Dose 10 MG; Start 08/25/18 at 20:30 Tramadol HCl (Ultram) 50 mg Q6H PRN PO PAIN LEVEL 1-3 Last administered on 08/26/18 05:51; Admin Dose 50 MG; Start 08/26/18 at 05:30 Oxycodone/ Acetaminophen (Endocet (10/ 325)) 1 tab Q6H PRN PO SEVERE PAIN LEVEL 7-10; Start 08/27/18 at 11:30 Oxycodone/ Acetaminophen (Percocet (5/ 325)) 1 tab Q6H PRN PO MODERATE PAIN L EVEL 4-6 Last administered on 08/27/18 17:43; Admin Dose 1 TAB; Start 08/27/18 at 11:30 Calcium Acetate (Phoslo) 2,001 mg WITH MEALS PO Last administered on 08/28/18 12:15; Admin Dose 2,001 MG; Start 08/28/18 at 12:00 Hydromorphone HCl (Dilaudid) 1.5 mg Q4H PRN IV SEVERE PAIN LEVEL 7-10 Last ad ministered on 5/30/19at 10:34; Admin Dose 1.5 MG; Start 08/28/18 at 10:30 Heparin Sodium (Porcine) (Heparin (1000 Units/ml)) 3,300 unit AFTER DIALYSIS CATHETER Last administered on 08/28/18at 13:26; Admin Dose 3,300 UNIT; Start 08/28/18 at 11:30 Metoclopramide HCl (Reglan) 5 mg Q4H PRN IV nausea; Start 08/28/18 at 12:30 Metoclopramide HCl (Reglan) 5 mg Q6 IV ; Start 08/28/18 at 18:00 WILFRED BRYAN MD August 28, 2018 15:29
--- NOTE | 2018-08-28 16:35 | CONS ---
DATE OF ADMISSION: 08/25/2018 DATE OF CONSULTATION: TYPE OF CONSULTATION: Gastroenterology. HISTORY OF PRESENT ILLNESS: The patient is a 32-year-old male with a history of end-stage renal dise ase, diabetes mellitus with its complications of retinopathy, legally blind, nephropathy, who comes t o the ER complaining of abdominal pain. The patient had multiple admissions in the past with abdomin al pain and most of the time, it was confined to the left upper quadrant and also radiating to the ba ck. The pain was associated with nausea and vomiting. At this time as per the ER note, the pain is confined to the epigastric area and also radiating to the back. His amylase and, lipase every time h e comes to the ER have been high. He had multiple hospitalizations for the same pain and the workup in the past was negative. MRCP showed dilated bile duct which was compensatory. No obstructing lesi on. No stone. CAT scan in the past also had been negative with normal looking pancreas. The patien t has been taking Hendrix to control his pain, but it is not helping him. PAST MEDICAL HISTORY: Diabetes mellitus, end-stage renal disease, history of high amylase and lipase was in the past and had multiple hospitalizations for abdominal pain. MEDICATION LIST: Reviewed. ALLERGIES: BENAZEPRIL. PAST SURGICAL HISTORY: Appendicectomy, left eye surgery, gallbladder surgery. SOCIAL HISTORY: He smokes every day. No alcohol. To my knowledge, he used to smoke marijuana also. PHYSICAL EXAMINATION: VITAL SIGNS: Stable. ABDOMEN: Benign. LUNGS: Clear. EXTREMITIES: No edema. CENTRAL NERVOUS SYSTEM: Grossly within normal limits. NEUROLOGIC: The patient did not want to communicate at this point. He said he was sleepy. LABORATORY DATA: Hematocrit is 28. WBC is within normal limits. When he came to the hospital, his lipase was 345, amylase was 331. Now, it has come down to 881. All the LFTs have been normal. IMPRESSION: 1. 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 2. End-stage renal disease for which he is on dialysis. 3. Hypertension. 4. Anemia of chronic disease. 5. Nausea and vomiting, most probably related to diabetic gastroparesis and renal failure. 6. High amylase and lipase, may be related to pancreatitis. The patient had multiple hospitalizatio ns for the same. So far, the workup for the pancreatitis has been negative. Again passage of the sm all stone of same particle through the ampulla as a cause of pancreatitis cannot be absolutely ruled out. PLAN: At this point is to continue present care. Add Reglan as a prokinetic agent round the clock. If the patient is cooperative which he was not today and allow me to get a proper history, then we m ay decide regarding ERCP, so that I can discuss with him for all the pros and cons of the procedure. Dictated By: MAXIMO KUHN MD PJ/NTS Conf#: [id number] DID#: [id number] CC: AHMET ESTRADA MD;*EndCC*
[2018-08-28] MEDS: METOCLOPRAMIDE 10 MG INJ IV SCH (17:07)
[2018-08-28] MEDS: INSULIN GLARGINE [LANTus] (100 UNITS/ML) SYG SC SCH (20:00)
[2018-08-29] VITALS (12 sets, daily range): BP systolic 100–133; BP diastolic 55–74; PULSE 76–88; RESP 17–19; Ht 182.9 cm; Wt 98.8 kg
[2018-08-29] MEDS: METOCLOPRAMIDE 10 MG INJ IV SCH ×4 (00:04→17:05)
[2018-08-29] MEDS: HYDROmorphONE 2 MG/ML SYG IV PRN ×6 (00:55→20:59)
[2018-08-29] MEDS: FUROSEMIDE 40 MG TAB PO SCH ×2 (06:00→17:05)
[2018-08-29] MEDS: CALCIUM ACETATE 667 MG CAP PO SCH ×4 (07:57→17:06)
[2018-08-29] MEDS: ESCITALOPRAM 10 MG TAB PO SCH (07:57)
[2018-08-29] MEDS: ISOSORBIDE MONONITRATE(SR)30 MG TAB PO SCH (07:58)
[2018-08-29] MEDS: NIFEdipine (XL) 60 MG TAB PO SCH ×2 (07:58→20:57)
[2018-08-29] MEDS: POLYETHYLENE GLYCOL 17 GM PACKET PO SCH (07:58)
[2018-08-29] MEDS: ONDANSETRON 4 MG INJ IV PRN (08:00)
[2018-08-29] MEDS: INSULIN ASPART [NOVOLOG] 3 ML PEN SC SCH ×7 (08:04→20:57)
[2018-08-29] MEDS: HEPARIN 5,000 UNIT/1 ML VIAL SC SCH ×2 (08:04→20:50)
--- NOTE | 2018-08-29 09:39 | CONS ---
Assessment/Plan Assessment/Plan Hospital Course (Demo Recall) # ESRD # Abdominal pain likely due to pancreatitis vs gastroparesis . # The patient also had elevated troponins in past. Had a CT angio of the chest which showed 50% of the disease, nothing to be done by cardiology. The patient had CT of the chest which was negative for any pulmonary embolism. # Patient also had a CT of the T and the L spine, which essentially showed some mild disease. The only thing the patient had some mild elevated lipase. # Hypertension urgency, resolved # Diabetes mellitus type II # Normocytic normochromic anemia of chronic disease # s/p cholecystectomy # dm retinopathy with left eye blindness. 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 binding agents - cw lasix 40 bid -nifedipine 60 bid/coreg/imdur/clonidine - fluid restriction - pt need effective pain regimen - consider GI eval ? ERCP S/P Cholecystectomy Consultation Date/Type/Reason Admit Date/Time August 25, 2018 at 10:10 Initial Consult Date 08/26/2018 Type of Consult nephrology Reason for Consultation ESRD Date/Time of Note DATE: 08/29/18 TIME: 09:31 24 HR Interval Summary Free Text/Dictation vomiting Exam/Review of Systems Exam Vitals Vital Signs Date Temp Pulse Resp B/P (MAP) Pulse Ox O2 O2 Flow FiO2 Time Delivery Rate 08/29/18 80 08:47 08/29/18 97.6 18 105/55 93 Room Air 07:16 (72) Intake and Output 08/28/18 08/28/18 08/29/18 1515:00 23:00 07:00 IntakeIntake Total 350 ml OutputOutput Total 3600 ml BalanceBalance -3600 ml 350 ml Exam Perm cath Constitutional: alert, oriented Respiratory: diminished breath sounds Cardiovascular: regular rate and rhythm Gastrointestinal: soft Results Result Diagram: 08/29/18 0502 08/29/18 0502 Results 24hrs Laboratory Tests Test 08/28/18 12:11 08/28/18 17:16 08/28/18 21:01 08/28/18 21:03 Bedside Glucose 85 153 66 L 74 Test 08/29/18 02:38 08/29/18 05:02 08/29/18 07:57 Bedside Glucose 152 157 White Blood Count 7.1 # Red Blood Count 3.13 L Hemoglobin 9.3 L Hematocrit 29.4 L Mean Corpuscular 93.9 Volume Mean Corpuscular 29.7 Hemoglobin Mean Corpuscular 31.6 L Hemoglobin Concent Red Cell 13.9 Distribution Width Platelet Count 196 Mean Platelet Volume 12.4 H Immature 0.300 Granulocytes % Neutrophils % 62.7 Lymphocytes % 20.6 Monocytes % 13.6 H Eosinophils % 1.5 Basophils % 1.3 Nucleated Red Blood 0.0 Cells % Immature 0.020 Granulocytes # Neutrophils # 4.5 Lymphocytes # 1.5 Monocytes # 1.0 H Eosinophils # 0.1 Basophils # 0.1 Nucleated Red Blood 0.0 Cells # Sodium Level 139 Potassium Level 5.2 H Chloride Level 99 Carbon Dioxide Level 30 Anion Gap 10 Blood Urea Nitrogen 39 #H Creatinine 8.41 H Glucose Level 133 Calcium Level 8.9 Phosphorus Level 7.5 #H Magnesium Level 2.4 Albumin 4.0 Medications Medication Current Medications Insulin Glargine (Lantus) 15 units DAILY@2000 SC Last administered on 08/27/18at 21:15; Admin Dose 15 UNITS; Start 08/25/18 at 20:00 Insulin Aspart (Novolog Insulin Pen) 5 unit WITH MEALS SC Last administered on 08/29/18at 08:04; Admin Dose 5 UNIT; Start 08/25/18 at 12:00 Insulin Aspart (Novolog Insulin Pen) NOVOLOG *MILD* ALGORITHM WITH MEALS BEDTIME SC Last administered on 08/29/18at 08:07; Admin Dose 1 UNIT; Start 08/25/18 at 12:00 Miscellaneous Information 1 ea NOTE XX ; Start 08/25/18 at 11:30 Glucose (Glutose) 15 gm Q15M PRN PO DECREASED GLUCOSE; Start 08/25/18 at 11:30 Glucose (Glutose) 22.5 gm Q15M PRN PO DECREASED GLUCOSE; Start 08/25/18 at 11:30 Dextrose (D50w Syringe) 25 ml Q15M PRN IV DECREASED GLUCOSE; Start 08/25/18 at 11:30 Dextrose (D50w Syringe) 50 ml Q15M PRN IV DECREASED GLUCOSE; Start 08/25/18 at 11:30 Glucagon (Glucagen) 1 mg Q15M PRN IM DECREASED GLUCOSE; Start 08/25/18 at 11:30 Glucose (Glutose) 15 gm Q15M PRN BUCCAL DECREASED GLUCOSE; Start 08/25/18 at 11:30 Carvedilol (Coreg) 12.5 mg BID PO Last administered on 08/29/18 07:58; Admin Dose 12.5 MG; Start 08/25/18 at 21:00 Escitalopram Oxalate (Lexapro) 10 mg DAILY PO Last administered on 08/29/18 07:57; Admin Dose 10 MG; Start 08/26/18 at 09:00 Furosemide (Lasix) 40 mg BID DIURETICS PO Last administered on 08/28/18 17:17; Admin Dose 40 MG; Start 08/25/18 at 18:00 Isosorbide Mononitrate (Imdur) 30 mg DAILY PO Last administered on 08/29/18 07:58; Admin Dose 30 MG; Start 08/26/18 at 09:00 Nifedipine (Procardia Xl) 60 mg BID PO Last administered on 08/29/18 07:58; Admin Dose 60 MG; Start 08/25/18 at 21:00 Polyethylene Glycol (Miralax) 17 gm DAILY PO Last administered on 08/28/18 08:09; Admin Dose 17 GM; Start 08/26/18 at 09:00 IV Flush (NS 3 ml) 3 ml PER PROTOCOL IV ; Start 08/25/18 at 11:30 Ondansetron HCl (Zofran Inj) 4 mg Q6H PRN IV NAUSEA/VOMITING Last administered on 08/29/18 08:00; Admin Dose 4 MG; Start 08/25/18 at 11:30 Heparin Sodium (Porcine) (Heparin (5000 Units/1ml)) 5,000 unit Q12 SC Last administered on 08/29/18 08:04; Admin Dose 5,000 UNIT; Start 08/25/18 at 21:00 Clonidine (Catapres) 0.2 mg Q6H PRN PO SBP > 190 Last administered on 08/28/18 16:29; Admin Dose 0.2 MG; Start 08/25/18 at 19:00 Hydralazine HCl (Apresoline) 10 mg Q4H PRN IV ELEVATED BLOOD PRESSURE Last administered on 08/28/18 10:14; Admin Dose 10 MG; Start 08/25/18 at 20:30 Tramadol HCl (Ultram) 50 mg Q6H PRN PO PAIN LEVEL 1-3 Last administered on 08/26/18 05:51; Admin Dose 50 MG; Start 08/26/18 at 05:30 Oxycodone/ Acetaminophen (Endocet (10/ 325)) 1 tab Q6H PRN PO SEVERE PAIN LEVEL 7-10; Start 08/27/18 at 11:30 Oxycodone/ Acetaminophen (Percocet (5/ 325)) 1 tab Q6H PRN PO MODERATE PAIN LEVEL 4-6 Last administered on 08/27/18at 17:43; Admin Dose 1 TAB; Start 08/27/18 at 11:30 Calcium Acetate (Phoslo) 2,001 mg WITH MEALS PO Last administered on 08/28/18 12:15; Admin Dose 2,001 MG; Start 08/28/18 at 12:00 Hydromorphone HCl (Dilaudid) 1.5 mg Q4H PRN IV SEVERE PAIN LEVEL 7-10 Last administered on 08/29/18 09:05; Admin Dose 1.5 MG; Start 08/28/18 at 10:30 Heparin Sodium (Porcine) (Heparin (1000 Units/ml)) 3,300 unit AFTER DIALYSIS CATHETER Last administered on 08/28/18at 13:26; Admin Dose 3,300 UNIT; Start 08/28/18 at 11:30 Metoclopramide HCl (Reglan) 5 mg Q4H PRN IV nausea; Start 08/28/18 at 12:30 Metoclopramide HCl (Reglan) 5 mg Q6 IV Last administered on 08/29/18at 05:12; Admin Dose 5 MG; Start 08/28/18 at 18:00 CALLY PERKINS August 29, 2018 09:39
--- NOTE | 2018-08-29 10:05 | PN ---
Date/Time of Note Date/Time of Note DATE: 08/29/18 TIME: 10:02 Assessment/Plan VTE Prophylaxis Risk score (from Nsg)>0 risk: 0 SCD applied (from Nsg): Yes Pharmacological prophylaxis: heparin Lines/Catheters IV Catheter Type (from Nrsg): Mid Line Urinary Cath still in place: No Assessment/Plan Assessment/Plan 1. Acute pancreatitis - Gi consulted and appreciate recommendations. patient agreeable to ERCP - clear diet 2. Diabetes Mellitus - A1c noted - ISS and accuchecks 3. ESRD on HD - Nephrology on board for HD management 4. HTN urgency- resolved - BP controlled. has elevated BP when in pain - improved after HD 5. Anemia of chronic disease - no reji bleeding noted - stable and no need for transfusions at this time 6. Disposition - Plans for ERCP either tomorrow or Saturday. Continue current plan of care Result Diagram: 08/29/18 0502 08/29/18 0502 Results 24hrs Laboratory Tests Test 08/28/18 12:11 08/28/18 17:16 08/28/18 21:01 08/28/18 21:03 Bedside Glucose 85 153 66 L 74 Test 08/29/18 02:38 08/29/18 05:02 08/29/18 07:57 Bedside Glucose 152 157 White Blood Count 7.1 # Red Blood Count 3.13 L Hemoglobin 9.3 L Hematocrit 29.4 L Mean Corpuscular 93.9 Volume Mean Corpuscular 29.7 Hemoglobin Mean Corpuscular 31.6 L Hemoglobin Concent Red Cell 13.9 Distribution Width Platelet Count 196 Mean Platelet Volume 12.4 H Immature 0.300 Granulocytes % Neutrophils % 62.7 Lymphocytes % 20.6 Monocytes % 13.6 H Eosinophils % 1.5 Basophils % 1.3 Nucleated Red Blood 0.0 Cells % Immature 0.020 Granulocytes # Neutrophils # 4.5 Lymphocytes # 1.5 Monocytes # 1.0 H Eosinophils # 0.1 Basophils # 0.1 Nucleated Red Blood 0.0 Cells # Sodium Level 139 Potassium Level 5.2 H Chloride Level 99 Carbon Dioxide Level 30 Anion Gap 10 Blood Urea Nitrogen 39 #H Creatinine 8.41 H Glucose Level 133 Calcium Level 8.9 Phosphorus Level 7.5 #H Magnesium Level 2.4 Albumin 4.0 Subjective 24 Hr Interval Summary Free Text/Dictation Patient is still with pain and discomfort. PO intake still irritating his stomach but worried he is not getting any nutrition and requesting fruit cup. Agreeable to ERCP now as long as no camera is placed in his rectum. Exam/Review of Systems Exam Vitals Vital Signs Date Temp Pulse Resp B/P (MAP) Pulse Ox O2 O2 Flow FiO2 Time Delivery Rate 08/29/18 80 08:47 08/29/18 97.6 18 105/55 93 Room Air 07:16 (72) Intake and Output 08/28/18 08/28/18 08/29/18 1515:00 23:00 07:00 IntakeIntake Total 350 ml OutputOutput Total 3600 ml BalanceBalance -3600 ml 350 ml Exam General: Patient is in acute distress due to nausea. answering questions appropriately Lungs: Clear to auscultation bilaterally, no wheezing or rhonchi Heart: Normal S1-S2, Regular rhythm and rate. No murmur, S3, or S4 Abdomen: Soft ,epigastric tenderness, nondistended , bowel sounds are present. No guarding no rebound tenderness Extremities: Normal to inspection, no cyanosis or clubbing or edema Skin: no rashes or lesions Results Results 24hrs Laboratory Tests Test 08/28/18 12:11 08/28/18 17:16 08/28/18 21:01 08/28/18 21:03 Bedside Glucose 85 153 66 L 74 Test 08/29/18 02:38 08/29/18 05:02 08/29/18 07:57 Bedside Glucose 152 157 White Blood Count 7.1 # Red Blood Count 3.13 L Hemoglobin 9.3 L Hematocrit 29.4 L Mean Corpuscular 93.9 Volume Mean Corpuscular 29.7 Hemoglobin Mean Corpuscular 31.6 L Hemoglobin Concent Red Cell 13.9 Distribution Width Platelet Count 196 Mean Platelet Volume 12.4 H Immature 0.300 Granulocytes % Neutrophils % 62.7 Lymphocytes % 20.6 Monocytes % 13.6 H Eosinophils % 1.5 Basophils % 1.3 Nucleated Red Blood 0.0 Cells % Immature 0.020 Granulocytes # Neutrophils # 4.5 Lymphocytes # 1.5 Monocytes # 1.0 H Eosinophils # 0.1 Basophils # 0.1 Nucleated Red Blood 0.0 Cells # Sodium Level 139 Potassium Level 5.2 H Chloride Level 99 Carbon Dioxide Level 30 Anion Gap 10 Blood Urea Nitrogen 39 #H Creatinine 8.41 H Glucose Level 133 Calcium Level 8.9 Phosphorus Level 7.5 #H Magnesium Level 2.4 Albumin 4.0 Medications Medication Current Medications Insulin Glargine (Lantus) 15 units DAILY@2000 SC Last administered on 08/27/18at 21:15; Admin Dose 15 UNITS; Start 08/25/18 at 20:00 Insulin Aspart (Novolog Insulin Pen) 5 unit WITH MEALS SC Last administered on 08/29/18 08:04; Admin Dose 5 UNIT; Start 08/25/18 at 12:00 Insulin Aspart (Novolog Insulin Pen) NOVOLOG *MILD* ALGORITHM WITH MEALS BEDTIME SC Last administered on 08/29/18 08:07; Admin Dose 1 UNIT; Start 08/25/18 at 12:00 Miscellaneous Information 1 ea NOTE XX ; Start 08/25/18 at 11:30 Glucose (Glutose) 15 gm Q15M PRN PO DECREASED GLUCOSE; Start 08/25/18 at 11:30 Glucose (Glutose) 22.5 gm Q15M PRN PO DECREASED GLUCOSE; Start 08/25/18 at 11:30 Dextrose (D50w Syringe) 25 ml Q15M PRN IV DECREASED GLUCOSE; Start 08/25/18 at 11:30 Dextrose (D50w Syringe) 50 ml Q15M PRN IV DECREASED GLUCOSE; Start 08/25/18 at 11:30 Glucagon (Glucagen) 1 mg Q15M PRN IM DECREASED GLUCOSE; Start 08/25/18 at 11:30 Glucose (Glutose) 15 gm Q15M PRN BUCCAL DECREASED GLUCOSE; Start 08/25/18 at 11:30 Carvedilol (Coreg) 12.5 mg BID PO Last administered on 08/29/18at 07:58; Admin Dose 12.5 MG; Start 08/25/18 at 21:00 Escitalopram Oxalate (Lexapro) 10 mg DAILY PO Last administered on 08/29/18 07:57; Admin Dose 10 MG; Start 08/26/18 at 09:00 Furosemide (Lasix) 40 mg BID DIURETICS PO Last administered on 08/28/18at 17:17; Admin Dose 40 MG; Start 08/25/18 at 18:00 Isosorbide Mononitrate (Imdur) 30 mg DAILY PO Last administered on 08/29/18at 07:58; Admin Dose 30 MG; Start 08/26/18 at 09:00 Nifedipine (Procardia Xl) 60 mg BID PO Last administered on 08/29/18 07:58; Admin Dose 60 MG; Start 08/25/18 at 21:00 Polyethylene Glycol (Miralax) 17 gm DAILY PO Last administered on 08/28/18 08:09; Admin Dose 17 GM; Start 08/26/18 at 09:00 IV Flush (NS 3 ml) 3 ml PER PROTOCOL IV ; Start 08/25/18 at 11:30 Ondansetron HCl (Zofran Inj) 4 mg Q6H PRN IV NAUSEA/VOMITING Last administered on 08/29/18 08:00; Admin Dose 4 MG; Start 08/25/18 at 11:30 Heparin Sodium (Porcine) (Heparin (5000 Units/1ml)) 5,000 unit Q12 SC Last administered on 08/29/18 08:04; Admin Dose 5,000 UNIT; Start 08/25/18 at 21:00 Clonidine (Catapres) 0.2 mg Q6H PRN PO SBP > 190 Last administered on 08/28/18 16:29; Admin Dose 0.2 MG; Start 08/25/18 at 19:00 Hydralazine HCl (Apresoline) 10 mg Q4H PRN IV ELEVATED BLOOD PRESSURE Last administered on 08/28/18 10:14; Admin Dose 10 MG; Start 08/25/18 at 20:30 Tramadol HCl (Ultram) 50 mg Q6H PRN PO PAIN LEVEL 1-3 Last administered on 08/26/18 05:51; Admin Dose 50 MG; Start 08/26/18 at 05:30 Oxycodone/ Acetaminophen (Endocet (10/ 325)) 1 tab Q6H PRN PO SEVERE PAIN LEVEL 7-10; Start 08/27/18 at 11:30 Oxycodone/ Acetaminophen (Percocet (5/ 325)) 1 tab Q6H PRN PO MODERATE PAIN LEVEL 4-6 Last administered on 08/27/18 17:43; Admin Dose 1 TAB; Start 08/27/18 at 11:30 Calcium Acetate (Phoslo) 2,001 mg WITH MEALS PO Last administered on 08/28/18 12:15; Admin Dose 2,001 MG; Start 08/28/18 at 12:00 Hydromorphone HCl (Dilaudid) 1.5 mg Q4H PRN IV SEVERE PAIN LEVEL 7-10 Last administered on 08/29/18at 09:05; Admin Dose 1.5 MG; Start 08/28/18 at 10:30 Heparin Sodium (Porcine) (Heparin (1000 Units/ml)) 3,300 unit AFTER DIALYSIS CATHETER Last administered on 08/28/18at 13:26; Admin Dose 3,300 UNIT; Start 08/28/18 at 11:30 Metoclopramide HCl (Reglan) 5 mg Q4H PRN IV nausea; Start 08/28/18 at 12:30 Metoclopramide HCl (Reglan) 5 mg Q6 IV Last administered on 08/29/18at 05:12; Admin Dose 5 MG; Start 08/28/18 at 18:00 WILFRED BRYAN MD August 29, 2018 10:05
--- NOTE | 2018-08-29 16:17 | CONS ---
Assessment/Plan Assessment/Plan Assessment/Plan (Daily) IMPRESSION: 1. 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 2. End-stage renal disease for which he is on dialysis. 3. Hypertension. 4. Anemia of chronic disease. 5. Nausea and vomiting, most probably related to diabetic gastroparesis and renal failure. 6. High amylase and lipase, may be related to pancreatitis. The patient had multiple hospitalizations for the same. So far, the workup for the pancreatitis has been negative. Again passage of the small stone of same particle through the ampulla as a cause of pancreatitis cannot be absolutely ruled out. Plan Continue pain management Patient is scheduled for ERCP tomorrow discussed with him regarding pros and cons of the procedure including pancreatitis severity of the pancreatitis which he understood and has agreed Consultation Date/Type/Reason Admit Date/Time August 25, 2018 at 10:10 Initial Consult Date Date/Time of Note DATE: 08/29/18 TIME: 16:16 24 HR Interval Summary Free Text/Dictation Complaints of abdominal pain and back pain Exam/Review of Systems Exam Vitals Vital Signs Date Temp Pulse Resp B/P (MAP) Pulse Ox O2 O2 Flow FiO2 Time Delivery Rate 08/29/18 97.5 88 19 133/74 98 Room Air 15:26 (93) Intake and Output 08/28/18 08/28/18 08/29/18 1515:00 23:00 07:00 IntakeIntake Total 350 ml OutputOutput Total 3600 ml BalanceBalance -3600 ml 350 ml Constitutional: alert, oriented, well developed Psych: no complaints, nl mood/affect Head: normocephalic, atraumatic Eyes: nl conjunctiva, EOMI, nl lids, nl sclera, PERRL ENMT: nl external ears & nose, nl lips & teeth, nl nasal mucosa & septum Neck: supple, non-tender Respiratory: clear to auscultation, normal air movement Cardiovascular: regular rate and rhythm, nl pulses Gastrointestinal: soft, nl liver, spleen, non-tender Musculoskeletal: nl extremities to inspection, nl gait and stance Extremities: normal pulses Neurological: [employer] II-XII intact, nl mental status, nl speech, nl strength Skin: nl turgor; No rash or lesions Lymph: nl lymph nodes Results Result Diagram: 08/29/18 0502 08/29/18 0502 Results 24hrs Laboratory Tests Test 08/28/18 17:16 08/28/18 21:01 08/28/18 21:03 08/29/18 02:38 Bedside Glucose 153 66 L 74 152 Test 08/29/18 05:02 08/29/18 07:57 08/29/18 11:43 White Blood Count 7.1 # Red Blood Count 3.13 L Hemoglobin 9.3 L Hematocrit 29.4 L Mean Corpuscular 93.9 Volume Mean Corpuscular 29.7 Hemoglobin Mean Corpuscular 31.6 L Hemoglobin Concent Red Cell 13.9 Distribution Width Platelet Count 196 Mean Platelet Volume 12.4 H Immature 0.300 Granulocytes % Neutrophils % 62.7 Lymphocytes % 20.6 Monocytes % 13.6 H Eosinophils % 1.5 Basophils % 1.3 Nucleated Red Blood 0.0 Cells % Immature 0.020 Granulocytes # Neutrophils # 4.5 Lymphocytes # 1.5 Monocytes # 1.0 H Eosinophils # 0.1 Basophils # 0.1 Nucleated Red Blood 0.0 Cells # Sodium Level 139 Potassium Level 5.2 H Chloride Level 99 Carbon Dioxide Level 30 Anion Gap 10 Blood Urea Nitrogen 39 #H Creatinine 8.41 H Glucose Level 133 Calcium Level 8.9 Phosphorus Level 7.5 #H Magnesium Level 2.4 Albumin 4.0 Bedside Glucose 157 102 Medications Medication Current Medications Insulin Glargine (Lantus) 15 units DAILY@2000 SC Last administered on 08/27/18at 21:15; Admin Dose 15 UNITS; Start 08/25/18 at 20:00 Insulin Aspart (Novolog Insulin Pen) 5 unit WITH MEALS SC Last administered on 08/29/18at 11:49; Admin Dose 5 UNIT; Start 08/25/18 at 12:00 Insulin Aspart (Novolog Insulin Pen) NOVOLOG *MILD* ALGORITHM WITH MEALS BEDTIME SC Last administered on 08/29/18at 08:07; Admin Dose 1 UNIT; Start 08/25/18 at 12:00 Miscellaneous Information 1 ea NOTE XX ; Start 08/25/18 at 11:30 Glucose (Glutose) 15 gm Q15M PRN PO DECREASED GLUCOSE; Start 08/25/18 at 11:30 Glucose (Glutose) 22.5 gm Q15M PRN PO DECREASED GLUCOSE; Start 08/25/18 at 11:30 Dextrose (D50w Syringe) 25 ml Q15M PRN IV DECREASED GLUCOSE; Start 08/25/18 at 11:30 Dextrose (D50w Syringe) 50 ml Q15M PRN IV DECREASED GLUCOSE; Start 08/25/18 at 11:30 Glucagon (Glucagen) 1 mg Q15M PRN IM DECREASED GLUCOSE; Start 08/25/18 at 11:30 Glucose (Glutose) 15 gm Q15M PRN BUCCAL DECREASED GLUCOSE; Start 08/25/18 at 11:30 Carvedilol (Coreg) 12.5 mg BID PO Last administered on 08/29/18 07:58; Admin Dose 12.5 MG; Start 08/25/18 at 21:00 Escitalopram Oxalate (Lexapro) 10 mg DAILY PO Last administered on 08/29/18 07:57; Admin Dose 10 MG; Start 08/26/18 at 09:00 Furosemide (Lasix) 40 mg BID DIURETICS PO Last administered on 08/28/18 17:17; Admin Dose 40 MG; Start 08/25/18 at 18:00 Isosorbide Mononitrate (Imdur) 30 mg DAILY PO Last administered on 08/29/18 07:58; Admin Dose 30 MG; Start 08/26/18 at 09:00 Nifedipine (Procardia Xl) 60 mg BID PO Last administered on 08/29/18 07:58; Admin Dose 60 MG; Start 08/25/18 at 21:00 Polyethylene Glycol (Miralax) 17 gm DAILY PO Last administered on 08/28/18 08:09; Admin Dose 17 GM; Start 08/26/18 at 09:00 IV Flush (NS 3 ml) 3 ml PER PROTOCOL IV ; Start 08/25/18 at 11:30 Ondansetron HCl (Zofran Inj) 4 mg Q6H PRN IV NAUSEA/VOMITING Last administered on 08/29/18 08:00; Admin Dose 4 MG; Start 08/25/18 at 11:30 Heparin Sodium (Porcine) (Heparin (5000 Units/1ml)) 5,000 unit Q12 SC Last administered on 08/29/18 08:04; Admin Dose 5,000 UNIT; Start 08/25/18 at 21:00 Clonidine (Catapres) 0.2 mg Q6H PRN PO SBP > 190 Last administered on 08/28/18 16:29; Admin Dose 0.2 MG; Start 08/25/18 at 19:00 Hydralazine HCl (Apresoline) 10 mg Q4H PRN IV ELEVATED BLOOD PRESSURE Last administered on 08/28/18 10:14; Admin Dose 10 MG; Start 08/25/18 at 20:30 Tramadol HCl (Ultram) 50 mg Q6H PRN PO PAIN LEVEL 1-3 Last administered on 08/26/18 05:51; Admin Dose 50 MG; Start 08/26/18 at 05:30 Oxycodone/ Acetaminophen (Endocet (10/ 325)) 1 tab Q6H PRN PO SEVERE PAIN LEVEL 7-10; Start 08/27/18 at 11:30 Oxycodone/ Acetaminophen (Percocet (5/ 325)) 1 tab Q6H PRN PO MODERATE PAIN LEVEL 4-6 Last administered on 08/27/18 17:43; Admin Dose 1 TAB; Start 08/27/18 at 11:30 Calcium Acetate (Phoslo) 2,001 mg WITH MEALS PO Last administered on 08/28/18 12:15; Admin Dose 2,001 MG; Start 08/28/18 at 12:00 Hydromorphone HCl (Dilaudid) 1.5 mg Q4H PRN IV SEVERE PAIN LEVEL 7-10 Last administered on 08/29/18 12:48; Admin Dose 1.5 MG; Start 08/28/18 at 10:30 Heparin Sodium (Porcine) (Heparin (1000 Units/ml)) 3,300 unit AFTER DIALYSIS CATHETER Last administered on 08/28/18at 13:26; Admin Dose 3,300 UNIT; Start 08/28/18 at 11:30 Metoclopramide HCl (Reglan) 5 mg Q4H PRN IV nausea; Start 08/28/18 at 12:30 Metoclopramide HCl (Reglan) 5 mg Q6 IV Last administered on 08/29/18 11:45; Admin Dose 5 MG; Start 08/28/18 at 18:00 MAXIMO KUHN MD August 29, 2018 16:17
[2018-08-29] MEDS: INSULIN GLARGINE [LANTus] (100 UNITS/ML) SYG SC SCH (21:05)
[2018-08-30] VITALS (36 sets, daily range): BP systolic 117–198; BP diastolic 58–110; PULSE 76–89; RESP 12–20
[2018-08-30] MEDS: METOCLOPRAMIDE 10 MG INJ IV SCH ×4 (00:07→17:09)
[2018-08-30] MEDS: HYDROmorphONE 2 MG/ML SYG IV PRN ×5 (01:21→22:24)
[2018-08-30] MEDS: FUROSEMIDE 40 MG TAB PO SCH ×2 (05:11→18:00)
[2018-08-30] MEDS ORDERED: INDOMETHACIN 50 MG SUPP PR ONE (07:00)
[2018-08-30] MEDS ORDERED: IOHEXOL 300MG/ML 30 ML BTL ONE (07:26)
--- NOTE | 2018-08-30 07:29 | PREAC ---
Date/Time of Note Date/Time of Note DATE: 08/30/18 TIME: 07:26 Anesthesia Eval and Record Evaluation Time Pre-Procedure Interview DATE: 08/30/18 TIME: 07:26 Age 32 Sex male NPO: 8 hrs Preoperative diagnosis pancreatitis Planned procedure ERCP Past Medical History Past Medical History: Includes Cardio: HTN Endo: Diabetes Renal: ESRD on dialysis Heme: Anemia Surgery & Anesthesia Issues No known issue Meds Anticoagulation: No Beta Braden within 24 hr: No Reason Beta Braden not given: Pt. not on B-Braden Active Scripts Insulin Aspart* (Novolog Insulin Pen*) 100 Unit/Ml Soln, 5 UNIT SC WITH MEALS, #5 VIAL Prov:CIARRA ROBLERO . 08/11/18 Hydrocodone/Acetaminophen ([place] 5-325 Tablet) 1 Each Tablet, 1 EACH PO Q6 PRN for PAIN, #10 [facility] 08/[facility]18 Pantoprazole* (Protonix*) 20 Mg Tablet.dr, 20 MG PO DAILY, #30 TAB 1 Refill Prov:ZEUS ROBLEROMelyssa 08/11/18 Nifedipine (Procardia Xl) 60 Mg Tab.er.24, 60 MG PO BID for 30 Days, #60 TAB 1 Refill Prov:CIARRA ROBLERO 08/11/18 Carvedilol* (Coreg*) 12.5 Mg Tablet, 12.5 MG PO BID for 30 Days, #60 TAB Prov:MIKE GIFFORD MD 07/24/18 Polyethylene Glycol* (Miralax*) 17 Gm Powd.pack, 17 GM PO DAILY for 10 Days Prov:MIKE GIFFORD MD 07/24/18 Aspirin (Aspirin) 81 Mg Chew, 81 MG PO DAILY for 30 Days, TAB Prov:MIKE GIFFORD MD 07/24/18 Isosorbide Mononitrate* (Isosorbide Mononitrate*) 30 Mg Tab.er.24h, 30 MG PO DAILY for 30 Days Prov:MIKE GIFFORD MD 07/24/18 Atorvastatin* (Atorvastatin*) 40 Mg Tablet, 40 MG PO HS for 30 Days, TAB Prov:MIKE GIFFORD MD 07/24/18 Escitalopram Oxalate* (Escitalopram Oxalate*) 10 Mg Tablet, 10 MG PO DAILY for 30 Days, #30 TAB Prov:MIKE GIFFORD MD 07/24/18 Gabapentin* (Gabapentin*) 300 Mg Capsule, 300 MG PO QHS for 30 Days, #60 CAP Prov:MIKE GIFFORD MD 07/24/18 Furosemide* (Furosemide*) 40 Mg Tablet, 40 MG PO BID for 30 Days, TAB Prov:MIKE GIFFORD MD 07/24/18 Calcium Acetate* (Calcium Acetate*) 667 Mg Capsule, 2001 MG PO WITH MEALS for 28 Days, #30 CAP Prov:MIKE GIFFORD MD 07/24/18 Reported Medications Insulin Glargine* (Lantus*) 100 Unit/Ml Soln, 15 UNIT SC DAILY, #1 VIAL 08/10/18 Current Medications Insulin Glargine (Lantus) 15 units DAILY@2000 SC Last administered on 08/29/18at 21:05; Admin Dose 15 UNITS; Start 08/25/18 at 20:00 Insulin Aspart (Novolog Insulin Pen) 5 unit WITH MEALS SC Last administered on 08/29/18at 18:01; Admin Dose 5 UNIT; Start 08/25/18 at 12:00 Insulin Aspart (Novolog Insulin Pen) NOVOLOG *MILD* ALGORITHM WITH MEALS BEDTIME SC Last administered on 08/29/18at 08:07; Admin Dose 1 UNIT; Start 08/25/18 at 12:00 Miscellaneous Information 1 ea NOTE XX ; Start 08/25/18 at 11:30 Glucose (Glutose) 15 gm Q15M PRN PO DECREASED GLUCOSE; Start 08/25/18 at 11:30 Glucose (Glutose) 22.5 gm Q15M PRN PO DECREASED GLUCOSE; Start 08/25/18 at 11:30 Dextrose (D50w Syringe) 25 ml Q15M PRN IV DECREASED GLUCOSE; Start 08/25/18 at 11:30 Dextrose (D50w Syringe) 50 ml Q15M PRN IV DECREASED GLUCOSE; Start 08/25/18 at 11:30 Glucagon (Glucagen) 1 mg Q15M PRN IM DECREASED GLUCOSE; Start 08/25/18 at 11:30 Glucose (Glutose) 15 gm Q15M PRN BUCCAL DECREASED GLUCOSE; Start 08/25/18 at 11:30 Carvedilol (Coreg) 12.5 mg BID PO Last administered on 08/29/18at 20:58; Admin Dose 12.5 MG; Start 08/25/18 at 21:00 Escitalopram Oxalate (Lexapro) 10 mg DAILY PO Last administered on 08/29/18 07:57; Admin Dose 10 MG; Start 08/26/18 at 09:00 Furosemide (Lasix) 40 mg BID DIURETICS PO Last administered on 08/29/18 17:05 ; Admin Dose 40 MG; Start 08/25/18 at 18:00 Isosorbide Mononitrate (Imdur) 30 mg DAILY PO Last administered on 08/29/18 07:58; Admin Dose 30 MG; Start 08/26/18 at 09:00 Nifedipine (Procardia Xl) 60 mg BID PO Last administered on 08/29/18 20:57; Admin Dose 60 MG; Start 08/25/18 at 21:00 Polyethylene Glycol (Miralax) 17 gm DAILY PO Last administered on 08/28/18 08:09; Admin Dose 17 GM; Start 08/26/18 at 09:00 IV Flush (NS 3 ml) 3 ml PER PROTOCOL IV ; Start 08/25/18 at 11:30 Ondansetron HCl (Zofran Inj) 4 mg Q6H PRN IV NAUSEA/VOMITING Last administered on 08/29/18 08:00; Admin Dose 4 MG; Start 08/25/18 at 11:30 Heparin Sodium (Porcine) (Heparin (5000 Units/1ml)) 5,000 unit Q12 SC Last administered on 08/29/18 08:04; Admin Dose 5,000 UNIT; Start 08/25/18 at 21:00; Status Hold Clonidine (Catapres) 0.2 mg Q6H PRN PO SBP > 190 Last administered on 08/28/18 16:29; Admin Dose 0.2 MG; Start 08/25/18 at 19:00 Hydralazine HCl (Apresoline) 10 mg Q4H PRN IV ELEVATED BLOOD PRESSURE Last administered on 08/28/18 10:14; Admin Dose 10 MG; Start 08/25/18 at 20:30 Tramadol HCl (Ultram) 50 mg Q6H PRN PO PAIN LEVEL 1-3 Last administered on 08/26/18 05:51; Admin Dose 50 MG; Start 08/26/18 at 05:30 Oxycodone/ Acetaminophen (Endocet (10/ 325)) 1 tab Q6H PRN PO SEVERE PAIN LEVEL 7-10; Start 08/27/18 at 11:30 Oxycodone/ Acetaminophen (Percocet (5/ 325)) 1 tab Q6H PRN PO MODERATE PAIN LEVEL 4-6 Last administered on 08/27/18at 17:43; Admin Dose 1 TAB; Start 08/27/18 at 11:30 Calcium Acetate (Phoslo) 2,001 mg WITH MEALS PO Last administered on 08/28/18at 12:15; Admin Dose 2,001 MG; Start 08/28/18 at 12:00 Hydromorphone HCl (Dilaudid) 1.5 mg Q4H PRN IV SEVERE PAIN LEVEL 7-10 Last a dministered on 08/30/18at 05:11; Admin Dose 1.5 MG; Start 08/28/18 at 10:30 Heparin Sodium (Porcine) (Heparin (1000 Units/ml)) 3,300 unit AFTER DIALYSIS CATHETER Last administered on 08/28/18at 13:26; Admin Dose 3,300 UNIT; Start 08/28/18 at 11:30 Metoclopramide HCl (Reglan) 5 mg Q4H PRN IV nausea; Start 08/28/18 at 12:30 Metoclopramide HCl (Reglan) 5 mg Q6 IV Last administered on 08/30/18at 05:10; Admin Dose 5 MG; Start 08/28/18 at 18:00 Meds reviewed: Yes Allergies Coded Allergies: benazepril (Verified Allergy, Unknown, 08/25/18) Allergies Reviewed: Yes Labs/Studies Labs Reviewed: Reviewed by anesthesiologist Result Diagram: 08/30/1852008/30/18520 Laboratory Tests 08/30/18 05:21 test: N/A Pre-procedure Exam Last vitals Vital Signs Date Temp Pulse Resp B/P (MAP) Pulse Ox O2 O2 Flow FiO2 Time Delivery Rate 08/30/18 98.4 82 18 122/58 92 07:15 (79) 08/29/18 Room Air 15:26 Airway: Adequate mouth opening, Adequate thyromental dist Mallampati: Mallampati II Teeth: Normal Lung: Normal Heart: Normal ASA Physical Status ASA physical status: 3 Emergency: None Planned Anesthetic General/MAC: Mask Planned Pain Management Parenteral pain med Pre-operative Attestations Prior to commencing anesthesia and surgery, the patient was re-evaluated, there was verification of: *The patient's identity *The results of appropriate recent lab work and preoperative vital signs *The above evaluation not changing prior to induction *Anesthetic plan, risk benefits, alternative and complications discussed with patient/family; questions answered; patient/family understands, accepts and wishes to proceed. JOHN EASTON MD Aug 30, 2018 07:28
[2018-08-30] MEDS ORDERED: HEPARIN 1000 UNITS/ML 10 ML INJ CATHETER SCH (08:00)
[2018-08-30] MEDS ORDERED: CIPROFLOXACIN 400MG/D5W 200 ML IVPB ONE (08:00)
[2018-08-30] MEDS: INSULIN ASPART [NOVOLOG] 3 ML PEN SC SCH ×7 (08:00→20:52)
[2018-08-30] MEDS: CALCIUM ACETATE 667 MG CAP PO SCH ×3 (08:00→17:19)
--- NOTE | 2018-08-30 08:04 | HPN ---
Date/Time of Note Date/Time of Note DATE: 08/30/18 TIME: 08:03 Interval H&P Admission Note Pt. seen H&P reviewed: No system changes MAXIMO KUHN MD Aug 30, 2018 08:03
[2018-08-30] MEDS ORDERED: LIDOCAINE 2% (SDV) 5 ML INJ ONE (08:14)
[2018-08-30] MEDS ORDERED: MIDAZOLAM 1 MG/ML 2 ML INJ ONE (08:14)
[2018-08-30] MEDS ORDERED: PROPOFOL 20 ML ONE ×2 (08:14→08:46)
[2018-08-30] MEDS ORDERED: ROCURONIUM 50 MG INJ ONE (08:46)
[2018-08-30] MEDS ORDERED: CIPROFLOXACIN 400MG/D5W 200 ML ONE (08:46)
[2018-08-30] MEDS ORDERED: FAMOTIDINE 20 MG INJ ONE (08:47)
[2018-08-30] MEDS ORDERED: ONDANSETRON 4 MG INJ ONE (08:47)
[2018-08-30] MEDS ORDERED: SUGAMMADEX SODIUM 200 MG/2 ML VIAL IV ONE ×2 (08:57→09:07)
[2018-08-30] MEDS: NIFEdipine (XL) 60 MG TAB PO SCH ×2 (09:00→20:46)
[2018-08-30] MEDS: ISOSORBIDE MONONITRATE(SR)30 MG TAB PO SCH (09:00)
--- NOTE | 2018-08-30 09:07 | CONS ---
Assessment/Plan Assessment/Plan Assessment/Plan (Daily) IMPRESSION: 1. 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 2. End-stage renal disease for which he is on dialysis. 3. Hypertension. 4. Anemia of chronic disease. 5. Nausea and vomiting, most probably related to diabetic gastroparesis and renal failure. 6. High amylase and lipase, may be related to pancreatitis. The patient had multiple hospitalizations for the same. So far, the workup for the pancreatitis has been negative. Again passage of the small stone of same particle through the ampulla as a cause of pancreatitis cannot be absolutely ruled out. Plan I reviewed his all his labs this morning. His platelet count was normal coagulation profile was normal and potassium was normal. Discussed the case with anesthesiologist and patient and both of them had agreed for the procedure Will proceed with ERCP now Consultation Date/Type/Reason Admit Date/Time August 25, 2018 at 10:10 Initial Consult Date Date/Time of Note DATE: 08/30/18 TIME: 09:05 24 HR Interval Summary Free Text/Dictation Continues to have abdominal pain No nausea no vomiting Exam/Review of Systems Exam Vitals Vital Signs Date Temp Pulse Resp B/P (MAP) Pulse Ox O2 O2 Flow FiO2 Time Delivery Rate 08/30/18 84 08:04 08/30/18 98.4 18 122/58 92 07:15 (79) 08/29/18 Room Air 15:26 Intake and Output 08/29/18 08/29/18 08/30/18 1515:00 23:00 07:00 IntakeIntake Total 1200 ml 850 ml OutputOutput Total 1 ml 2 ml BalanceBalance 1199 ml 848 ml Constitutional: alert, oriented, well developed Psych: no complaints, nl mood/affect Head: normocephalic, atraumatic Eyes: nl conjunctiva, EOMI, nl lids, nl sclera, PERRL ENMT: nl external ears & nose, nl lips & teeth, nl nasal mucosa & septum Neck: supple, non-tender Respiratory: clear to auscultation, normal air movement Cardiovascular: regular rate and rhythm, nl pulses Gastrointestinal: soft, nl liver, spleen, non-tender Musculoskeletal: nl extremities to inspection, nl gait and stance Extremities: normal pulses Neurological: [employer]IST II-XII intact, nl mental status, nl speech, nl strength Skin: nl turgor; No rash or lesions Lymph: nl lymph nodes Results Result Diagram: 08/30/18 0521 08/30/18 0521 Results 24hrs Laboratory Tests Test 08/29/18 11:43 08/29/18 16:49 08/29/18 20:54 08/30/18 05:21 Bedside Glucose 102 101 100 White Blood Count 5.5 # Red Blood Count 3.02 L Hemoglobin 8.9 L Hematocrit 28.0 L Mean Corpuscular 92.7 Volume Mean Corpuscular 29.5 Hemoglobin Mean Corpuscular 31.8 L Hemoglobin Concent Red Cell Distribution 13.3 Width Platelet Count 191 Mean Platelet Volume 12.6 H Immature Granulocytes 0.200 % Neutrophils % 50.2 Lymphocytes % 29.6 Monocytes % 15.5 H Eosinophils % 2.9 Basophils % 1.6 Nucleated Red Blood 0.0 Cells % Immature Granulocytes 0.010 # Neutrophils # 2.8 Lymphocytes # 1.6 Monocytes # 0.9 Eosinophils # 0.2 Basophils # 0.1 Nucleated Red Blood 0.0 Cells # Sodium Level 139 Potassium Level 4.6 Chloride Level 98 Carbon Dioxide Level 27 Anion Gap 14 H Blood Urea Nitrogen 46 H Creatinine 9.89 H Glucose Level 84 # Calcium Level 8.0 L Phosphorus Level 9.3 H Magnesium Level 2.4 Albumin 3.8 Vitamin D 15.7 L 1,25-Dihydroxy Medications Medication Current Medications Insulin Glargine (Lantus) 15 units DAILY@2000 SC Last administered on 08/29/18at 21:05; Admin Dose 15 UNITS; Start 08/25/18 at 20:00 Insulin Aspart (Novolog Insulin Pen) 5 unit WITH MEALS SC Last administered on 08/29/18at 18:01; Admin Dose 5 UNIT; Start 08/25/18 at 12:00 Insulin Aspart (Novolog Insulin Pen) NOVOLOG *MILD* ALGORITHM WITH MEALS BEDTIME SC Last administered on 08/29/18at 08:07; Admin Dose 1 UNIT; Start 08/25/18 at 12:00 Miscellaneous Information 1 ea NOTE XX ; Start 08/25/18 at 11:30 Glucose (Glutose) 15 gm Q15M PRN PO DECREASED GLUCOSE; Start 08/25/18 at 11:30 Glucose (Glutose) 22.5 gm Q15M PRN PO DECREASED GLUCOSE; Start 08/25/18 at 11:30 Dextrose (D50w Syringe) 25 ml Q15M PRN IV DECREASED GLUCOSE; Start 08/25/18 at 11:30 Dextrose (D50w Syringe) 50 ml Q15M PRN IV DECREASED GLUCOSE; Start 08/25/18 at 11:30 Glucagon (Glucagen) 1 mg Q15M PRN IM DECREASED GLUCOSE; Start 08/25/18 at 11:30 Glucose (Glutose) 15 gm Q15M PRN BUCCAL DECREASED GLUCOSE; Start 08/25/18 at 11:30 Carvedilol (Coreg) 12.5 mg BID PO Last administered on 08/29/18 20:58; Admin Dose 12.5 MG; Start 08/25/18 at 21:00 Escitalopram Oxalate (Lexapro) 10 mg DAILY PO Last administered on 08/29/18 07:57; Admin Dose 10 MG; Start 08/26/18 at 09:00 Furosemide (Lasix) 40 mg BID DIURETICS PO Last administered on 08/29/18 17:05; Admin Dose 40 MG; Start 08/25/18 at 18:00 Isosorbide Mononitrate (Imdur) 30 mg DAILY PO Last administered on 08/29/18 07:58; Admin Dose 30 MG; Start 08/26/18 at 09:00 Nifedipine (Procardia Xl) 60 mg BID PO Last administered on 08/29/18 20:57; Admin Dose 60 MG; Start 08/25/18 at 21:00 Polyethylene Glycol (Miralax) 17 gm DAILY PO Last administered on 08/28/18 08:09; Admin Dose 17 GM; Start 08/26/18 at 09:00 IV Flush (NS 3 ml) 3 ml PER PROTOCOL IV ; Start 08/25/18 at 11:30 Ondansetron HCl (Zofran Inj) 4 mg Q6H PRN IV NAUSEA/VOMITING Last administered on 08/29/18 08:00; Admin Dose 4 MG; Start 08/25/18 at 11:30 Heparin Sodium (Porcine) (Heparin (5000 Units/1ml)) 5,000 unit Q12 SC Last administered on 08/29/18 08:04; Admin Dose 5,000 UNIT; Start 08/25/18 at 21:00; Status Hold Clonidine (Catapres) 0.2 mg Q6H PRN PO SBP > 190 Last administered on 5/30/19at 16:29; Admin Dose 0.2 MG; Start 08/25/18 at 19:00 Hydralazine HCl (Apresoline) 10 mg Q4H PRN IV ELEVATED BLOOD PRESSURE Last administered on 08/28/18at 10:14; Admin Dose 10 MG; Start 08/25/18 at 20:30 Tramadol HCl (Ultram) 50 mg Q6H PRN PO PAIN LEVEL 1-3 Last administered on 08/26/18 05:51; Admin Dose 50 MG; Start 08/26/18 at 05:30 Oxycodone/ Acetaminophen (Endocet (10/ 325)) 1 tab Q6H PRN PO SEVERE PAIN LEVEL 7-10; Start 08/27/18 at 11:30 Oxycodone/ Acetaminophen (Percocet (5/ 325)) 1 tab Q6H PRN PO MODERATE PAIN LEVEL 4-6 Last administered on 08/27/18at 17:43; Admin Dose 1 TAB; Start 08/27/18 at 11:30 Calcium Acetate (Phoslo) 2,001 mg WITH MEALS PO Last administered on 08/28/18at 12:15; Admin Dose 2,001 MG; Start 08/28/18 at 12:00 Hydromorphone HCl (Dilaudid) 1.5 mg Q4H PRN IV SEVERE PAIN LEVEL 7-10 Last administered on 08/30/18at 05:11; Admin Dose 1.5 MG; Start 08/28/18 at 10:30 Metoclopramide HCl (Reglan) 5 mg Q4H PRN IV nausea; Start 08/28/18 at 12:30 Metoclopramide HCl (Reglan) 5 mg Q6 IV Last administered on 08/30/18at 05:10; Admin Dose 5 MG; Start 08/28/18 at 18:00 Heparin Sodium (Porcine) (Heparin (1000 Units/ml)) 4,000 unit AFTER DIALYSIS CATHETER ; Start 08/30/18 at 08:00 MAXIMO KUHN MD Aug 30, 2018 09:07
--- NOTE | 2018-08-30 09:29 | PAC ---
Date/Time of Note Date/Time of Note DATE: 08/30/18 TIME: 09:29 Post-Anesthesia Notes Post-Anesthesia Note Last documented vital signs Vital Signs Date Temp Pulse Resp B/P (MAP) Pulse Ox O2 O2 Flow FiO2 Time Delivery Rate 08/30/18 84 08:04 08/30/18 98.4 18 122/58 92 07:15 (79) 08/29/18 Room Air 15:26 Activity: WNL Respiratory function: WNL Cardiovascular function: WNL Mental status: Baseline Pain reasonably controlled: Yes Hydration appropriate: Yes Nausea/Vomiting absent: Yes JOHN EASTON MD Aug 30, 2018 09:29
[2018-08-30] MEDS ORDERED: DIPHENHYDRAMINE 50 MG INJ IV PRN (10:00)
[2018-08-30] MEDS ORDERED: FENTAnyl 50 MCG/ML VIAL IV PRN (10:00)
[2018-08-30] MEDS ORDERED: ONDANSETRON 4 MG INJ IV PRN (10:00)
[2018-08-30] MEDS ORDERED: hydrALAzine 20 MG INJ IV PRN (10:00)
[2018-08-30] MEDS ORDERED: PROCHLORPERAZINE 10 MG INJ IV PRN (10:00)
[2018-08-30] MEDS ORDERED: MEPERIDINE 25 MG INJ IV PRN (10:00)
[2018-08-30] MEDS ORDERED: HYDROmorphONE 1 MG/5 ML IV SYRINGE IV PRN ×3 (10:00)
[2018-08-30] MEDS ORDERED: LABETALOL HCL 20MG INJ IV PRN (10:00)
--- NOTE | 2018-08-30 10:43 | PN ---
Date/Time of Note Date/Time of Note DATE: 08/30/18 TIME: 10:43 Assessment/Plan VTE Prophylaxis Risk score (from Nsg)>0 risk: 0 SCD applied (from Nsg): Yes Pharmacological prophylaxis: heparin Lines/Catheters IV Catheter Type (from Nrsg): Mid Line Urinary Cath still in place: No Assessment/Plan Assessment/Plan 1. Acute pancreatitis s/p ERCP - GI consultation appreciated and removed small sand stones this am. Will hopefully help resolve pain - soft diet and advance as tolerated 2. Diabetes Mellitus - A1c noted - ISS and accuchecks 3. ESRD on HD - Nephrology on board for HD management and appreciate consultation 4. HTN urgency- resolved - stable BP - improved after HD 5. Anemia of chronic disease - no reji bleeding noted - stable and no need for transfusions at this time 6. Disposition - s/p ERCP and once tolerating PO intake without further abdominal pain, will d/c home Result Diagram: 08/30/18 0508/30/18 0521 Results 24hrs Laboratory Tests Test 08/29/18 11:43 08/29/18 16:49 08/29/18 20:54 08/30/18 05:21 Bedside Glucose 102 101 100 White Blood Count 5.5 # Red Blood Count 3.02 L Hemoglobin 8.9 L Hematocrit 28.0 L Mean Corpuscular 92.7 Volume Mean Corpuscular 29.5 Hemoglobin Mean Corpuscular 31.8 L Hemoglobin Concent Red Cell Distribution 13.3 Width Platelet Count 191 Mean Platelet Volume 12.6 H Immature Granulocytes 0.200 % Neutrophils % 50.2 Lymphocytes % 29.6 Monocytes % 15.5 H Eosinophils % 2.9 Basophils % 1.6 Nucleated Red Blood 0.0 Cells % Immature Granulocytes 0.010 # Neutrophils # 2.8 Lymphocytes # 1.6 Monocytes # 0.9 Eosinophils # 0.2 Basophils # 0.1 Nucleated Red Blood 0.0 Cells # Sodium Level 139 Potassium Level 4.6 Chloride Level 98 Carbon Dioxide Level 27 Anion Gap 14 H Blood Urea Nitrogen 46 H Creatinine 9.89 H Glucose Level 84 # Calcium Level 8.0 L Phosphorus Level 9.3 H Magnesium Level 2.4 Albumin 3.8 Vitamin D 15.7 L 1,25-Dihydroxy Test 08/30/18 09:26 Bedside Glucose 149 Subjective 24 Hr Interval Summary Free Text/Dictation Patient returned from ERCP and still sleepy. No acute distress noted. Exam/Review of Systems Exam Vitals Vital Signs Date Temp Pulse Resp B/P (MAP) Pulse Ox O2 O2 Flow FiO2 Time Delivery Rate 08/30/18 98.2 80 17 139/77 99 Room Air 10:10 (97) Intake and Output 08/29/18 08/29/18 08/30/18 1515:00 23:00 07:00 IntakeIntake Total 1200 ml 850 ml OutputOutput Total 1 ml 2 ml BalanceBalance 1199 ml 848 ml Exam General: Patient is sleeping. no acute overnight events Lungs: Clear to auscultation bilaterally, no wheezing or rhonchi Heart: Normal S1-S2, Regular rhythm and rate. No murmur, S3, or S4 Abdomen: Soft ,epigastric tenderness, nondistended , bowel sounds are present. No guarding no rebound tenderness Extremities: Normal to inspection, no cyanosis or clubbing or edema Skin: no rashes or lesions Results Results 24hrs Laboratory Tests Test 08/29/18 11:43 08/29/18 16:49 08/29/18 20:54 08/30/18 05:21 Bedside Glucose 102 101 100 White Blood Count 5.5 # Red Blood Count 3.02 L Hemoglobin 8.9 L Hematocrit 28.0 L Mean Corpuscular 92.7 Volume Mean Corpuscular 29.5 Hemoglobin Mean Corpuscular 31.8 L Hemoglobin Concent Red Cell Distribution 13.3 Width Platelet Count 191 Mean Platelet Volume 12.6 H Immature Granulocytes 0.200 % Neutrophils % 50.2 Lymphocytes % 29.6 Monocytes % 15.5 H Eosinophils % 2.9 Basophils % 1.6 Nucleated Red Blood 0.0 Cells % Immature Granulocytes 0.010 # Neutrophils # 2.8 Lymphocytes # 1.6 Monocytes # 0.9 Eosinophils # 0.2 Basophils # 0.1 Nucleated Red Blood 0.0 Cells # Sodium Level 139 Potassium Level 4.6 Chloride Level 98 Carbon Dioxide Level 27 Anion Gap 14 H Blood Urea Nitrogen 46 H Creatinine 9.89 H Glucose Level 84 # Calcium Level 8.0 L Phosphorus Level 9.3 H Magnesium Level 2.4 Albumin 3.8 Vitamin D 15.7 L 1,25-Dihydroxy Test 08/30/18 09:26 Bedside Glucose 149 Medications Medication Current Medications Insulin Glargine (Lantus) 15 units DAILY@1999 SC Last administered on 08/29/18 21:05; Admin Dose 15 UNITS; Start 08/25/18 at 20:00 Insulin Aspart (Novolog Insulin Pen) 5 unit WITH MEALS SC Last administered on 08/29/18 18:01; Admin Dose 5 UNIT; Start 08/25/18 at 12:00 Insulin Aspart (Novolog Insulin Pen) NOVOLOG *MILD* ALGORITHM WITH MEALS BEDTIME SC Last administered on 08/29/18 08:07; Admin Dose 1 UNIT; Start 08/25/18 at 12:00 Miscellaneous Information 1 ea NOTE XX ; Start 08/25/18 at 11:30 Glucose (Glutose) 15 gm Q15M PRN PO DECREASED GLUCOSE; Start 08/25/18 at 11:30 Glucose (Glutose) 22.5 gm Q15M PRN PO DECREASED GLUCOSE; Start 08/25/18 at 11:30 Dextrose (D50w Syringe) 25 ml Q15M PRN IV DECREASED GLUCOSE; Start 08/25/18 at 11:30 Dextrose (D50w Syringe) 50 ml Q15M PRN IV DECREASED GLUCOSE; Start 08/25/18 at 11:30 Glucagon (Glucagen) 1 mg Q15M PRN IM DECREASED GLUCOSE; Start 08/25/18 at 11:30 Glucose (Glutose) 15 gm Q15M PRN BUCCAL DECREASED GLUCOSE; Start 08/25/18 at 11:30 Carvedilol (Coreg) 12.5 mg BID PO Last administered on 08/29/18 20:58; Admin Dose 12.5 MG; Start 08/25/18 at 21:00 Escitalopram Oxalate (Lexapro) 10 mg DAILY PO Last administered on 08/29/18 07:57; Admin Dose 10 MG; Start 08/26/18 at 09:00 Furosemide (Lasix) 40 mg BID DIURETICS PO Last administered on 08/29/18 17:05; Admin Dose 40 MG; Start 08/25/18 at 18:00 Isosorbide Mononitrate (Imdur) 30 mg DAILY PO Last administered on 08/29/18 07:58; Admin Dose 30 MG; Start 08/26/18 at 09:00 Nifedipine (Procardia Xl) 60 mg BID PO Last administered on 08/29/18 20:57; Admin Dose 60 MG; Start 08/25/18 at 21:00 Polyethylene Glycol (Miralax) 17 gm DAILY PO Last administered on 08/28/18 08:09; Admin Dose 17 GM; Start 08/26/18 at 09:00 IV Flush (NS 3 ml) 3 ml PER PROTOCOL IV ; Start 08/25/18 at 11:30 Ondansetron HCl (Zofran Inj) 4 mg Q6H PRN IV NAUSEA/VOMITING Last administered on 08/29/18 08:00; Admin Dose 4 MG; Start 08/25/18 at 11:30 Heparin Sodium (Porcine) (Heparin (5000 Units/1ml)) 5,000 unit Q12 SC Last administered on 08/29/18 08:04; Admin Dose 5,000 UNIT; Start 08/25/18 at 21:00; Status Hold Clonidine (Catapres) 0.2 mg Q6H PRN PO SBP > 190 Last administered on 08/28/18 16:29; Admin Dose 0.2 MG; Start 08/25/18 at 19:00 Hydralazine HCl (Apresoline) 10 mg Q4H PRN IV ELEVATED BLOOD PRESSURE Last administered on 08/28/18 10:14; Admin Dose 10 MG; Start 08/25/18 at 20:30 Tramadol HCl (Ultram) 50 mg Q6H PRN PO PAIN LEVEL 1-3 Last administered on 08/26/18 05:51; Admin Dose 50 MG; Start 08/26/18 at 05:30 Oxycodone/ Acetaminophen (Endocet (10/ 325)) 1 tab Q6H PRN PO SEVERE PAIN LEVEL 7-10; Start 08/27/18 at 11:30 Oxycodone/ Acetaminophen (Percocet (5/ 325)) 1 tab Q6H PRN PO MODERATE PAIN LEVEL 4-6 Last administered on 08/27/18 17:43; Admin Dose 1 TAB; Start 08/27/18 at 11:30 Calcium Acetate (Phoslo) 2,001 mg WITH MEALS PO Last administered on 08/28/18 12:15; Admin Dose 2,001 MG; Start 08/28/18 at 12:00 Hydromorphone HCl (Dilaudid) 1.5 mg Q4H PRN IV SEVERE PAIN LEVEL 7-10 Last administered on 08/30/18 05:11; Admin Dose 1.5 MG; Start 08/28/18 at 10:30 Metoclopramide HCl (Reglan) 5 mg Q4H PRN IV nausea; Start 08/28/18 at 12:30 Metoclopramide HCl (Reglan) 5 mg Q6 IV Last administered on 08/30/18at 05:10; Admin Dose 5 MG; Start 08/28/18 at 18:00 Heparin Sodium (Porcine) (Heparin (1000 Units/ml)) 4,000 unit AFTER DIALYSIS CATHETER ; Start 08/30/18 at 08:00 Hydromorphone HCl (Dilaudid) 0.2 mg PACU PRN IV MILD PAIN 1-3; Start 08/30/18 at 10:00; Stop 08/30/18 at 17:00 Hydromorphone HCl (Dilaudid) 0.4 mg PACU PRN IV MOD PAIN 4-6; Start 08/30/18 at 10:00; Stop 08/30/18 at 17:00 Hydromorphone HCl (Dilaudid) 0.6 mg PACU PRN IV SEVERE PAIN 7-10; Start 08/30/18 at 10:00; Stop 08/30/18 at 17:00 Fentanyl (Sublimaze) 25 mcg PACU ORDER PRN IV MILD PAIN 1-3; Start 08/30/18 at 10:00; Stop 08/30/18 at 17:00 Ondansetron HCl (Zofran Inj) 4 mg PACU ORDER PRN IV NAUSEA/VOMITING; Start 08/30/18 at 10:00; Stop 08/30/18 at 17:00 Prochlorperazine (Compazine Inj) 5 mg PACU ORDER PRN IV NAUSEA/VOMITING; Start 08/30/18 at 10:00; Stop 08/30/18 at 17:00 Meperidine HCl (Demerol) 25 mg PACU ORDER PRN IV .RIGORS; Start 08/30/18 at 10:00; Stop 08/30/18 at 17:00 Diphenhydramine HCl (Benadryl) 25 mg PACU ORDER PRN IV .PRURITUS; Start 08/30/18 at 10:00; Stop 08/30/18 at 17:00 Labetalol HCl (Labetalol) 5 mg PACU ORDER PRN IV HIGH BLOOD PRESSURE; Start 08/30/18 at 10:00; Stop 08/30/18 at 17:00 Hydralazine HCl (Apresoline) 5 mg PACU ORDER PRN IV HIGH BLOOD PRESSURE; Start 08/30/18 at 10:00; Stop 08/30/18 at 17:00 WILFRED BRYAN MD Aug 30, 2018 10:43
[2018-08-30] MEDS: ESCITALOPRAM 10 MG TAB PO SCH (11:46)
[2018-08-30] MEDS: POLYETHYLENE GLYCOL 17 GM PACKET PO SCH (11:47)
[2018-08-30] MEDS: INSULIN GLARGINE [LANTus] (100 UNITS/ML) SYG SC SCH (20:53)
[2018-08-31] VITALS (10 sets, daily range): BP systolic 127–164; BP diastolic 71–78; PULSE 70–86; RESP 18–20
[2018-08-31] MEDS: METOCLOPRAMIDE 10 MG INJ IV SCH ×4 (00:56→17:27)
--- NOTE | 2018-08-31 01:19 | GILP ---
DATE OF PROCEDURE: PROCEDURES: ERCP, sphincterotomy, removal of the sand particle. INDICATION: A 32-year-old gentleman with end-stage renal disease, diabetic nephropathy and retinopat hy, legally blind, gets admitted to the hospital multiple times for pancreatitis. The purpose of thi s procedure is to evaluate the biliary system and to perform biliary sphincterotomy. The risk of the procedure, related and unrelated complication including bleeding, perforation and pancreatitis, marni rity of the pancreatitis, all thoroughly explained to the patient, which she understood, agreed, cons ented for it. DESCRIPTION OF PROCEDURE: The patient was brought to the OR room #4, intubated, placed in a prone po sition, was given Indocin suppository and Cipro antibiotic as a prophylaxis. ERCP scope passed with much ease into esophagus and advanced further down into stomach and duodenum. Ampulla was identified , selectively cannulated bile duct. There appeared to be a filling defect, round in appearance, in t he distal part of the bile duct. Large sphincterotomy done and balloon sweeping with a 12 mm done 5 to 6 times. Multiple sand particles were removed. Excellent drainage was established and the scope was removed with excellent patient tolerance. Total fluoro time was 4 seconds. IMPRESSION: 1. Filling defect identified in the distal part of the bile duct. Large sphincterotomy was done and multiple sand particles were removed. 2. Excellent drainage established. No filling defect was seen after sphincterotomy and balloon swee ping. 3. Total fluoroscopy time was just 4 seconds. PLAN: Monitor LFT. The patient can be started on liquid diet and advance it as tolerated by the pat ient. Dictated By: MAXIMO KUHN MD PJ/NTS Conf#: [id number] DID#: [id number] CC: AHMET ESTRADA MD; Dr. García;*[facility]*
[2018-08-31] MEDS: HYDROmorphONE 2 MG/ML SYG IV PRN ×5 (02:31→21:37)
[2018-08-31] MEDS: FUROSEMIDE 40 MG TAB PO SCH ×2 (05:32→17:28)
[2018-08-31] MEDS: INSULIN ASPART [NOVOLOG] 3 ML PEN SC SCH ×7 (07:54→21:00)
[2018-08-31] MEDS: ESCITALOPRAM 10 MG TAB PO SCH (08:11)
[2018-08-31] MEDS: NIFEdipine (XL) 60 MG TAB PO SCH ×2 (08:11→21:04)
[2018-08-31] MEDS: CALCIUM ACETATE 667 MG CAP PO SCH ×3 (08:11→17:27)
[2018-08-31] MEDS: ISOSORBIDE MONONITRATE(SR)30 MG TAB PO SCH (08:12)
[2018-08-31] MEDS: POLYETHYLENE GLYCOL 17 GM PACKET PO SCH (08:12)
--- NOTE | 2018-08-31 12:30 | PN ---
Date/Time of Note Date/Time of Note DATE: 08/31/18 TIME: 12:20 Assessment/Plan VTE Prophylaxis Risk score (from Nsg)>0 risk: 0 SCD applied (from Ns): No SCD contraindicated: patient refusal Pharmacological prophylaxis: heparin Lines/Catheters IV Catheter Type (from Nrsg): Mid Line Urinary Cath still in place: No Assessment/Plan Assessment/Plan 1. Acute pancreatitis s/p ERCP - GI consultation appreciated. Patients pain is slightly improved but still experiencing discomfort and "soreness" - soft diet and advance as tolerated 2. Diabetes Mellitus - A1c noted - ISS and accuchecks 3. ESRD on HD - Nephrology on board for HD management and appreciate consultation 4. HTN urgency- resolved - stable BP - improved after HD 5. Anemia of chronic disease - no reji bleeding noted - stable and no need for transfusions at this time 6. Disposition - Continue pain control and once tolerating PO intake, will d/c home Result Diagram: 08/31/18 0532 08/31/18 0532 Results 24hrs Laboratory Tests Test 08/30/18 17:14 08/30/18 20:41 08/31/18 01:06 08/31/18 05:32 Bedside Glucose 139 201 167 White Blood Count 5.0 Red Blood Count 3.20 L Hemoglobin 9.7 L Hematocrit 29.8 L Mean Corpuscular Volume 93.1 Mean Corpuscular 30.3 Hemoglobin Mean Corpuscular 32.6 Hemoglobin Concent Red Cell Distribution 13.2 Width Platelet Count 208 Mean Platelet Volume 12.7 H Immature Granulocytes % 0.200 Neutrophils % 55.4 Lymphocytes % 24.7 Monocytes % 16.7 H Eosinophils % 1.8 Basophils % 1.2 Nucleated Red Blood 0.0 Cells % Immature Granulocytes # 0.010 Neutrophils # 2.8 Lymphocytes # 1.2 Monocytes # 0.8 Eosinophils # 0.1 Basophils # 0.1 Nucleated Red Blood 0.0 Cells # Sodium Level 142 Potassium Level 5.1 Chloride Level 105 Carbon Dioxide Level 26 Anion Gap 11 Blood Urea Nitrogen 34 #H Creatinine 7.58 #H Glucose Level 68 #L Calcium Level 8.8 Phosphorus Level 7.4 H Magnesium Level 2.4 Albumin 3.9 Test 08/31/18 07:53 08/31/18 11:55 Bedside Glucose 85 99 Subjective 24 Hr Interval Summary Free Text/Dictation Patient is still sore but states feeling better. Believes its secondary to discomfort from ETT and ERCP. No acute overnight events. Tolerating soft diet Exam/Review of Systems Exam Vitals Vital Signs Date Temp Pulse Resp B/P (MAP) Pulse Ox O2 O2 Flow FiO2 Time Delivery Rate 08/31/18 70 12:03 08/31/18 98.0 18 129/74 99 11:51 (92) 08/31/18 Room Air 05:33 Intake and Output 08/30/18 08/30/18 08/31/18 1515:00 23:00 07:00 IntakeIntake Total 0 ml 650 ml 420 ml OutputOutput Total 3400 ml 3001 ml BalanceBalance 0 ml -2750 ml -2581 ml Exam General: Patient is sleeping. no acute overnight events Lungs: Clear to auscultation bilaterally, no wheezing or rhonchi Heart: Normal S1-S2, Regular rhythm and rate. No murmur, S3, or S4 Abdomen: Soft ,mild epigastric tenderness, nondistended , bowel sounds are present. No guarding no rebound tenderness Extremities: Normal to inspection, no cyanosis or clubbing or edema Skin: no rashes or lesions Results Results 24hrs Laboratory Tests Test 08/30/18 17:14 08/30/18 20:41 08/31/18 01:06 08/31/18 05:32 Bedside Glucose 139 201 167 White Blood Count 5.0 Red Blood Count 3.20 L Hemoglobin 9.7 L Hematocrit 29.8 L Mean Corpuscular Volume 93.1 Mean Corpuscular 30.3 Hemoglobin Mean Corpuscular 32.6 Hemoglobin Concent Red Cell Distribution 13.2 Width Platelet Count 208 Mean Platelet Volume 12.7 H Immature Granulocytes % 0.200 Neutrophils % 55.4 Lymphocytes % 24.7 Monocytes % 16.7 H Eosinophils % 1.8 Basophils % 1.2 Nucleated Red Blood 0.0 Cells % Immature Granulocytes # 0.010 Neutrophils # 2.8 Lymphocytes # 1.2 Monocytes # 0.8 Eosinophils # 0.1 Basophils # 0.1 Nucleated Red Blood 0.0 Cells # Sodium Level 142 Potassium Level 5.1 Chloride Level 105 Carbon Dioxide Level 26 Anion Gap 11 Blood Urea Nitrogen 34 #H Creatinine 7.58 #H Glucose Level 68 #L Calcium Level 8.8 Phosphorus Level 7.4 H Magnesium Level 2.4 Albumin 3.9 Test 08/31/18 07:53 08/31/18 11:55 Bedside Glucose 85 99 Medications Medication Current Medications Insulin Glargine (Lantus) 15 units DAILY@2000 SC Last administered on 08/30/18at 20:53; Admin Dose 15 UNITS; Start 08/25/18 at 20:00 Insulin Aspart (Novolog Insulin Pen) 5 unit WITH MEALS SC Last administered on 08/31/18 08:34; Admin Dose 5 UNIT; Start 08/25/18 at 12:00 Insulin Aspart (Novolog Insulin Pen) NOVOLOG *MILD* ALGORITHM WITH MEALS BEDTIME SC Last administered on 08/30/18 20:52; Admin Dose 1 UNIT; Start 08/25/18 at 12:00 Miscellaneous Information 1 ea NOTE XX ; Start 08/25/18 at 11:30 Glucose (Glutose) 15 gm Q15M PRN PO DECREASED GLUCOSE; Start 08/25/18 at 11:30 Glucose (Glutose) 22.5 gm Q15M PRN PO DECREASED GLUCOSE; Start 08/25/18 at 11:30 Dextrose (D50w Syringe) 25 ml Q15M PRN IV DECREASED GLUCOSE; Start 08/25/18 at 11:30 Dextrose (D50w Syringe) 50 ml Q15M PRN IV DECREASED GLUCOSE; Start 08/25/18 at 11:30 Glucagon (Glucagen) 1 mg Q15M PRN IM DECREASED GLUCOSE; Start 08/25/18 at 11:30 Glucose (Glutose) 15 gm Q15M PRN BUCCAL DECREASED GLUCOSE; Start 08/25/18 at 11:30 Carvedilol (Coreg) 12.5 mg BID PO Last administered on 08/31/18at 08:11; Admin Dose 12.5 MG; Start 08/25/18 at 21:00 Escitalopram Oxalate (Lexapro) 10 mg DAILY PO Last administered on 08/31/18 08:11; Admin Dose 10 MG; Start 08/26/18 at 09:00 Furosemide (Lasix) 40 mg BID DIURETICS PO Last administered on 08/31/18at 05:32; Admin Dose 40 MG; Start 08/25/18 at 18:00 Isosorbide Mononitrate (Imdur) 30 mg DAILY PO Last administered on 08/31/18 08:12; Admin Dose 30 MG; Start 08/26/18 at 09:00 Nifedipine (Procardia Xl) 60 mg BID PO Last administered on 08/31/18 08:11; Admin Dose 60 MG; Start 08/25/18 at 21:00 Polyethylene Glycol (Miralax) 17 gm DAILY PO Last administered on 08/31/18 08:12; Admin Dose 17 GM; Start 08/26/18 at 09:00 IV Flush (NS 3 ml) 3 ml PER PROTOCOL IV ; Start 08/25/18 at 11:30 Ondansetron HCl (Zofran Inj) 4 mg Q6H PRN IV NAUSEA/VOMITING Last administered on 08/29/18 08:00; Admin Dose 4 MG; Start 08/25/18 at 11:30 Heparin Sodium (Porcine) (Heparin (5000 Units/1ml)) 5,000 unit Q12 SC Last administered on 08/29/18 08:04; Admin Dose 5,000 UNIT; Start 08/25/18 at 21:00; Status Hold Clonidine (Catapres) 0.2 mg Q6H PRN PO SBP > 190 Last administered on 08/28/18 16:29; Admin Dose 0.2 MG; Start 08/25/18 at 19:00 Hydralazine HCl (Apresoline) 10 mg Q4H PRN IV ELEVATED BLOOD PRESSURE Last administered on 08/28/18 10:14; Admin Dose 10 MG; Start 08/25/18 at 20:30 Tramadol HCl (Ultram) 50 mg Q6H PRN PO PAIN LEVEL 1-3 Last administered on 08/26/18 05:51; Admin Dose 50 MG; Start 08/26/18 at 05:30 Oxycodone/ Acetaminophen (Endocet (10/ 325)) 1 tab Q6H PRN PO SEVERE PAIN LEVEL 7-10; Start 08/27/18 at 11:30 Oxycodone/ Acetaminophen (Percocet (5/ 325)) 1 tab Q6H PRN PO MODERATE PAIN LEVEL 4-6 Last administered on 08/27/18 17:43; Admin Dose 1 TAB; Start 08/27/18 at 11:30 Calcium Acetate (Phoslo) 2,001 mg WITH MEALS PO Last administered on 08/31/18 08:11; Admin Dose 2,001 MG; Start 08/28/18 at 12:00 Hydromorphone HCl (Dilaudid) 1.5 mg Q4H PRN IV SEVERE PAIN LEVEL 7-10 Last administered on 08/31/18at 08:10; Admin Dose 1.5 MG; Start 08/28/18 at 10:30 Metoclopramide HCl (Reglan) 5 mg Q4H PRN IV nausea; Start 08/28/18 at 12:30 Metoclopramide HCl (Reglan) 5 mg Q6 IV Last administered on 08/31/18at 05:32; Admin Dose 5 MG; Start 08/28/18 at 18:00 Heparin Sodium (Porcine) (Heparin (1000 Units/ml)) 4,000 unit AFTER DIALYSIS CATHETER Last administered on 08/30/18at 22:27; Admin Dose 4,000 UNIT; Start 08/30/18 at 08:00 WILFRED BRYAN MD Aug 31, 2018 12:30
--- NOTE | 2018-08-31 14:17 | CONS ---
Assessment/Plan Assessment/Plan Assessment/Plan (Daily) Assessment/Plan Assessment/Plan (Daily) IMPRESSION: 1. 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 2. End-stage renal disease for which he is on dialysis. 3. Hypertension. 4. Anemia of chronic disease. 5. Nausea and vomiting, most probably related to diabetic gastroparesis and renal failure. 6. Recurrent pancreatitis, patient is status post sphincterotomy with the removal of multiple sand particles Plan continue present care Consultation Date/Type/Reason Admit Date/Time August 25, 2018 at 10:10 Initial Consult Date Date/Time of Note DATE: 08/31/18 TIME: 14:16 24 HR Interval Summary Constitutional: improved Exam/Review of Systems Exam Vitals Vital Signs Date Temp Pulse Resp B/P (MAP) Pulse Ox O2 O2 Flow FiO2 Time Delivery Rate 08/31/18 70 12:03 08/31/18 98.0 18 129/74 99 11:51 (92) 08/31/18 Room Air 05:33 Intake and Output 08/30/18 08/30/18 08/31/18 1515:00 23:00 07:00 IntakeIntake Total 0 ml 650 ml 420 ml OutputOutput Total 3400 ml 3001 ml BalanceBalance 0 ml -2750 ml -2581 ml Constitutional: alert, oriented, well developed Psych: no complaints, nl mood/affect Head: normocephalic, atraumatic Eyes: nl conjunctiva, EOMI, nl lids, nl sclera, PERRL ENMT: nl external ears & nose, nl lips & teeth, nl nasal mucosa & septum Neck: supple, non-tender Respiratory: clear to auscultation, normal air movement Cardiovascular: regular rate and rhythm, nl pulses Gastrointestinal: soft, nl liver, spleen, non-tender Musculoskeletal: nl extremities to inspection, nl gait and stance Extremities: normal pulses 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, nl mental status, nl speech, nl strength Skin: nl turgor; No rash or lesions Lymph: nl lymph nodes Results Result Diagram: 08/31/18 0532 08/31/18 0532 Results 24hrs Laboratory Tests Test 08/30/18 17:14 08/30/18 20:41 08/31/18 01:06 08/31/18 05:32 Bedside Glucose 139 201 167 White Blood Count 5.0 Red Blood Count 3.20 L Hemoglobin 9.7 L Hematocrit 29.8 L Mean Corpuscular Volume 93.1 Mean Corpuscular 30.3 Hemoglobin Mean Corpuscular 32.6 Hemoglobin Concent Red Cell Distribution 13.2 Width Platelet Count 208 Mean Platelet Volume 12.7 H Immature Granulocytes % 0.200 Neutrophils % 55.4 Lymphocytes % 24.7 Monocytes % 16.7 H Eosinophils % 1.8 Basophils % 1.2 Nucleated Red Blood 0.0 Cells % Immature Granulocytes # 0.010 Neutrophils # 2.8 Lymphocytes # 1.2 Monocytes # 0.8 Eosinophils # 0.1 Basophils # 0.1 Nucleated Red Blood 0.0 Cells # Sodium Level 142 Potassium Level 5.1 Chloride Level 105 Carbon Dioxide Level 26 Anion Gap 11 Blood Urea Nitrogen 34 #H Creatinine 7.58 #H Glucose Level 68 #L Calcium Level 8.8 Phosphorus Level 7.4 H Magnesium Level 2.4 Albumin 3.9 Test 08/31/18 07:53 08/31/18 11:55 Bedside Glucose 85 99 Medications Medication Current Medications Insulin Glargine (Lantus) 15 units DAILY@2000 SC Last administered on 08/30/18at 20:53; Admin Dose 15 UNITS; Start 08/25/18 at 20:00 Insulin Aspart (Novolog Insulin Pen) 5 unit WITH MEALS SC Last administered on 08/31/18at 13:29; Admin Dose 5 UNIT; Start 08/25/18 at 12:00 Insulin Aspart (Novolog Insulin Pen) NOVOLOG *MILD* ALGORITHM WITH MEALS BEDTIME SC Last administered on 08/30/18at 20:52; Admin Dose 1 UNIT; Start 08/25/18 at 12:00 Miscellaneous Information 1 ea NOTE XX ; Start 08/25/18 at 11:30 Glucose (Glutose) 15 gm Q15M PRN PO DECREASED GLUCOSE; Start 08/25/18 at 11:30 Glucose (Glutose) 22.5 gm Q15M PRN PO DECREASED GLUCOSE; Start 08/25/18 at 11:30 Dextrose (D50w Syringe) 25 ml Q15M PRN IV DECREASED GLUCOSE; Start 08/25/18 at 11:30 Dextrose (D50w Syringe) 50 ml Q15M PRN IV DECREASED GLUCOSE; Start 08/25/18 at 11:30 Glucagon (Glucagen) 1 mg Q15M PRN IM DECREASED GLUCOSE; Start 08/25/18 at 11:30 Glucose (Glutose) 15 gm Q15M PRN BUCCAL DECREASED GLUCOSE; Start 08/25/18 at 11:30 Carvedilol (Coreg) 12.5 mg BID PO Last administered on 08/31/18 08:11; Admin Dose 12.5 MG; Start 08/25/18 at 21:00 Escitalopram Oxalate (Lexapro) 10 mg DAILY PO Last administered on 08/31/18 08:11; Admin Dose 10 MG; Start 08/26/18 at 09:00 Furosemide (Lasix) 40 mg BID DIURETICS PO Last administered on 08/31/18 05:32; Admin Dose 40 MG; Start 08/25/18 at 18:00 Isosorbide Mononitrate (Imdur) 30 mg DAILY PO Last administered on 08/31/18 08:12; Admin Dose 30 MG; Start 08/26/18 at 09:00 Nifedipine (Procardia Xl) 60 mg BID PO Last administered on 08/31/18 08:11; Admin Dose 60 MG; Start 08/25/18 at 21:00 Polyethylene Glycol (Miralax) 17 gm DAILY PO Last administered on 08/31/18 08:12; Admin Dose 17 GM; Start 08/26/18 at 09:00 IV Flush (NS 3 ml) 3 ml PER PROTOCOL IV ; Start 08/25/18 at 11:30 Ondansetron HCl (Zofran Inj) 4 mg Q6H PRN IV NAUSEA/VOMITING Last administered on 08/29/18 08:00; Admin Dose 4 MG; Start 08/25/18 at 11:30 Heparin Sodium (Porcine) (Heparin (5000 Units/1ml)) 5,000 unit Q12 SC Last administered on 08/29/18 08:04; Admin Dose 5,000 UNIT; Start 08/25/18 at 21:00; Status Hold Clonidine (Catapres) 0.2 mg Q6H PRN PO SBP > 190 Last administered on 08/28/18 16:29; Admin Dose 0.2 MG; Start 08/25/18 at 19:00 Hydralazine HCl (Apresoline) 10 mg Q4H PRN IV ELEVATED BLOOD PRESSURE Last administered on 08/28/18 10:14; Admin Dose 10 MG; Start 08/25/18 at 20:30 Tramadol HCl (Ultram) 50 mg Q6H PRN PO PAIN LEVEL 1-3 Last administered on 08/26/18 05:51; Admin Dose 50 MG; Start 08/26/18 at 05:30 Oxycodone/ Acetaminophen (Endocet (10/ 325)) 1 tab Q6H PRN PO SEVERE PAIN LEVEL 7-10; Start 08/27/18 at 11:30 Oxycodone/ Acetaminophen (Percocet (5/ 325)) 1 tab Q6H PRN PO MODERATE PAIN LEVEL 4-6 Last administered on 08/27/18 17:43; Admin Dose 1 TAB; Start 08/27/18 at 11:30 Calcium Acetate (Phoslo) 2,001 mg WITH MEALS PO Last administered on 08/31/18 12:57; Admin Dose 2,001 MG; Start 08/28/18 at 12:00 Hydromorphone HCl (Dilaudid) 1.5 mg Q4H PRN IV SEVERE PAIN LEVEL 7-10 Last ad ministered on 08/31/18 12:56; Admin Dose 1.5 MG; Start 08/28/18 at 10:30 Metoclopramide HCl (Reglan) 5 mg Q4H PRN IV nausea; Start 08/28/18 at 12:30 Metoclopramide HCl (Reglan) 5 mg Q6 IV Last administered on 08/31/18 12:56; Admin Dose 5 MG; Start 08/28/18 at 18:00 Heparin Sodium (Porcine) (Heparin (1000 Units/ml)) 4,000 unit AFTER DIALYSIS CATHETER Last administered on 08/30/18 22:27; Admin Dose 4,000 UNIT; Start 08/30/18 at 08:00 MAXIMO KUHN MD Aug 31, 2018 14:17
--- NOTE | 2018-08-31 18:46 | CONS ---
Assessment/Plan Assessment/Plan Hospital Course (Demo Recall) # Abdominal pain likely due to pancreatitis #Hypertension #Diabetes # ESRD # sp cholecystectomy # dm retinopathy plan hd pain meds Consultation Date/Type/Reason Admit Date/Time August 25, 2018 at 10:10 Initial Consult Date Type of Consult abd pain + no fever Date/Time of Note DATE: 08/31/18 TIME: 18:44 24 HR Interval Summary Constitutional: improved Exam/Review of Systems Exam Vitals Vital Signs Date Temp Pulse Resp B/P (MAP) Pulse Ox O2 O2 Flow FiO2 Time Delivery Rate 08/31/18 98.0 73 18 127/71 98 16:12 (89) 08/31/18 Room Air 05:33 Intake and Output 08/30/18 08/30/18 08/31/18 1515:00 23:00 07:00 IntakeIntake Total 0 ml 650 ml 420 ml OutputOutput Total 3400 ml 3001 ml BalanceBalance 0 ml -2750 ml -2581 ml Neck: supple Respiratory: clear to auscultation Cardiovascular: regular rate and rhythm Gastrointestinal: soft, bowel sounds (+) Extremities: No edema 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 Results Result Diagram: 08/31/18 0532 08/31/18 0532 Results 24hrs Laboratory Tests Test 08/30/18 20:41 08/31/18 01:06 08/31/18 05:32 08/31/18 07:53 Bedside Glucose 201 167 85 White Blood Count 5.0 Red Blood Count 3.20 L Hemoglobin 9.7 L Hematocrit 29.8 L Mean Corpuscular Volume 93.1 Mean Corpuscular 30.3 Hemoglobin Mean Corpuscular 32.6 Hemoglobin Concent Red Cell Distribution 13.2 Width Platelet Count 208 Mean Platelet Volume 12.7 H Immature Granulocytes % 0.200 Neutrophils % 55.4 Lymphocytes % 24.7 Monocytes % 16.7 H Eosinophils % 1.8 Basophils % 1.2 Nucleated Red Blood 0.0 Cells % Immature Granulocytes # 0.010 Neutrophils # 2.8 Lymphocytes # 1.2 Monocytes # 0.8 Eosinophils # 0.1 Basophils # 0.1 Nucleated Red Blood 0.0 Cells # Sodium Level 142 Potassium Level 5.1 Chloride Level 105 Carbon Dioxide Level 26 Anion Gap 11 Blood Urea Nitrogen 34 #H Creatinine 7.58 #H Glucose Level 68 #L Calcium Level 8.8 Phosphorus Level 7.4 H Magnesium Level 2.4 Albumin 3.9 Test 08/31/18 11:55 08/31/18 17:25 Bedside Glucose 99 91 Medications Medication Current Medications Insulin Glargine (Lantus) 15 units DAILY@2000 SC Last administered on 08/30/18 20:53; Admin Dose 15 UNITS; Start 08/25/18 at 20:00 Insulin Aspart (Novolog Insulin Pen) 5 unit WITH MEALS SC Last administered on 08/31/18 17:46; Admin Dose 5 UNIT; Start 08/25/18 at 12:00 Insulin Aspart (Novolog Insulin Pen) NOVOLOG *MILD* ALGORITHM WITH MEALS BEDTIME SC Last administered on 08/30/18 20:52; Admin Dose 1 UNIT; Start 08/25/18 at 12:00 Miscellaneous Information 1 ea NOTE XX ; Start 08/25/18 at 11:30 Glucose (Glutose) 15 gm Q15M PRN PO DECREASED GLUCOSE; Start 08/25/18 at 11:30 Glucose (Glutose) 22.5 gm Q15M PRN PO DECREASED GLUCOSE; Start 08/25/18 at 11:30 Dextrose (D50w Syringe) 25 ml Q15M PRN IV DECREASED GLUCOSE; Start 08/25/18 at 11:30 Dextrose (D50w Syringe) 50 ml Q15M PRN IV DECREASED GLUCOSE; Start 08/25/18 at 11:30 Glucagon (Glucagen) 1 mg Q15M PRN IM DECREASED GLUCOSE; Start 08/25/18 at 11:30 Glucose (Glutose) 15 gm Q15M PRN BUCCAL DECREASED GLUCOSE; Start 08/25/18 at 11:30 Carvedilol (Coreg) 12.5 mg BID PO Last administered on 08/31/18at 08:11; Admin Dose 12.5 MG; Start 08/25/18 at 21:00 Escitalopram Oxalate (Lexapro) 10 mg DAILY PO Last administered on 08/31/18 08:11; Admin Dose 10 MG; Start 08/26/18 at 09:00 Furosemide (Lasix) 40 mg BID DIURETICS PO Last administered on 08/31/18 17:28; Admin Dose 40 MG; Start 08/25/18 at 18:00 Isosorbide Mononitrate (Imdur) 30 mg DAILY PO Last administered on 08/31/18 08:12; Admin Dose 30 MG; Start 08/26/18 at 09:00 Nifedipine (Procardia Xl) 60 mg BID PO Last administered on 08/31/18 08:11; Admin Dose 60 MG; Start 08/25/18 at 21:00 Polyethylene Glycol (Miralax) 17 gm DAILY PO Last administered on 08/31/18 08:12; Admin Dose 17 GM; Start 08/26/18 at 09:00 IV Flush (NS 3 ml) 3 ml PER PROTOCOL IV ; Start 08/25/18 at 11:30 Ondansetron HCl (Zofran Inj) 4 mg Q6H PRN IV NAUSEA/VOMITING Last administered on 08/29/18 08:00; Admin Dose 4 MG; Start 08/25/18 at 11:30 Heparin Sodium (Porcine) (Heparin (5000 Units/1ml)) 5,000 unit Q12 SC Last administered on 08/29/18 08:04; Admin Dose 5,000 UNIT; Start 08/25/18 at 21:00; Status Hold Clonidine (Catapres) 0.2 mg Q6H PRN PO SBP > 190 Last administered on 08/28/18 16:29; Admin Dose 0.2 MG; Start 08/25/18 at 19:00 Hydralazine HCl (Apresoline) 10 mg Q4H PRN IV ELEVATED BLOOD PRESSURE Last administered on 08/28/18 10:14; Admin Dose 10 MG; Start 08/25/18 at 20:30 Tramadol HCl (Ultram) 50 mg Q6H PRN PO PAIN LEVEL 1-3 Last administered on 08/26/18 05:51; Admin Dose 50 MG; Start 08/26/18 at 05:30 Oxycodone/ Acetaminophen (Endocet (10/ 325)) 1 tab Q6H PRN PO SEVERE PAIN LEVEL 7-10; Start 08/27/18 at 11:30 Oxycodone/ Acetaminophen (Percocet (5/ 325)) 1 tab Q6H PRN PO MODERATE PAIN LEVEL 4-6 Last administered on 08/27/18 17:43; Admin Dose 1 TAB; Start 08/27/18 at 11:30 Calcium Acetate (Phoslo) 2,001 mg WITH MEALS PO Last administered on 08/31/18 17:27; Admin Dose 2,001 MG; Start 08/28/18 at 12:00 Hydromorphone HCl (Dilaudid) 1.5 mg Q4H PRN IV SEVERE PAIN LEVEL 7-10 Last administered on 08/31/18 17:27; Admin Dose 1.5 MG; Start 08/28/18 at 10:30 Metoclopramide HCl (Reglan) 5 mg Q4H PRN IV nausea; Start 08/28/18 at 12:30 Metoclopramide HCl (Reglan) 5 mg Q6 IV Last administered on 08/31/18at 17:27; Admin Dose 5 MG; Start 08/28/18 at 18:00 Heparin Sodium (Porcine) (Heparin (1000 Units/ml)) 4,000 unit AFTER DIALYSIS CATHETER Last administered on 08/30/18 22:27; Admin Dose 4,000 UNIT; Start 08/30/18 at 08:00 SHON MTZ MD Aug 31, 2018 18:46
[2018-08-31] MEDS: INSULIN GLARGINE [LANTus] (100 UNITS/ML) SYG SC SCH (21:46)
[2018-09-01] VITALS: BP 150/83; PULSE 80; PULSE 82; RESP 18
[2018-09-01] MEDS: METOCLOPRAMIDE 10 MG INJ IV SCH ×3 (00:36→11:45)
[2018-09-01] MEDS: HYDROmorphONE 2 MG/ML SYG IV PRN ×2 (01:40→06:30)
[2018-09-01 04:00] VITALS: BP 134/76; PULSE 77; RESP 18
[2018-09-01] MEDS: FUROSEMIDE 40 MG TAB PO SCH (05:21)
--- NOTE | 2018-09-01 07:21 | PN ---
DATE: 08/30/2018 SUBJECTIVE: The patient claimed that his pain is better. Vital signs are seen. The patient denies any nausea, vomiting. The patient's medications has been reviewed. OBJECTIVE: Vital signs: Stable. LUNGS: Clear. CARDIOVASCULAR: S1, S2 are normal. ABDOMEN: Soft, nontender. EXTREMITIES: No edema. CENTRAL NERVOUS SYSTEM: Unremarkable. IMPRESSION: 1. End-stage renal disease. 2. Hypertension. 3. Pancreatitis, chronic. 4. History of diabetic nephropathy, retinopathy. PLAN: To continue hemodialysis. Continue pain medication. Orders were done. Dictated By: SHON MTZ MD BS/NTS Conf#: [id number] DID#: [id number]
[2018-09-01 07:34] VITALS: BP 131/76; PULSE 78; RESP 18
[2018-09-01] MEDS: INSULIN ASPART [NOVOLOG] 3 ML PEN SC SCH ×4 (07:55→11:45)
[2018-09-01 08:00] VITALS: PULSE 76
[2018-09-01] MEDS: CALCIUM ACETATE 667 MG CAP PO SCH ×2 (08:17→11:45)
[2018-09-01] MEDS: ISOSORBIDE MONONITRATE(SR)30 MG TAB PO SCH (08:17)
[2018-09-01] MEDS: POLYETHYLENE GLYCOL 17 GM PACKET PO SCH (08:17)
[2018-09-01] MEDS: ESCITALOPRAM 10 MG TAB PO SCH (08:17)
[2018-09-01] MEDS: NIFEdipine (XL) 60 MG TAB PO SCH (08:17)
--- NOTE | 2018-09-01 08:31 | CONS ---
Assessment/Plan Assessment/Plan Hospital Course (Demo Recall) 32 yo male with recurrent pancreatitis 1. 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 2. End-stage renal disease for which he is on dialysis. 3. Hypertension. 4. Anemia of chronic disease. 5. Nausea and vomiting, most probably related to diabetic gastroparesis and renal failure. 6. Chronic recurrent pancreatitis -s/p ERCP with sphincterotomy Plan Amitiza bid, dulcolax 10 mg PO x 1 CMP,Lipase and amylase in am Continue reglan continue present care Consultation Date/Type/Reason Admit Date/Time August 25, 2018 at 10:10 Initial Consult Date Date/Time of Note DATE: 09/01/18 TIME: 08:27 24 HR Interval Summary Free Text/Dictation C/O LUQ pain. No bm since 08/28. Tolerating PO diet. Exam/Review of Systems Exam Vitals Vital Signs Date Temp Pulse Resp B/P (MAP) Pulse Ox O2 O2 Flow FiO2 Time Delivery Rate 09/01/18 98.0 78 18 131/76 98 07:34 (94) 08/31/18 Room Air 05:33 Intake and Output 08/31/18 08/31/18 09/01/18 1515:00 23:00 07:00 IntakeIntake Total 1000 ml BalanceBalance 1000 ml Constitutional: alert, oriented Respiratory: normal air movement Cardiovascular: regular rate and rhythm Gastrointestinal: soft, tender Results Result Diagram: 09/01/1851809/01/18518 Results 24hrs Laboratory Tests Test 08/31/18 11:55 08/31/18 17:25 08/31/18 21:07 09/01/18 05:19 Bedside Glucose 99 91 174 White Blood Count 6.0 Red Blood Count 2.96 L Hemoglobin 8.9 L Hematocrit 27.5 L Mean Corpuscular Volume 92.9 Mean Corpuscular 30.1 Hemoglobin Mean Corpuscular 32.4 Hemoglobin Concent Red Cell Distribution 13.4 Width Platelet Count 200 Mean Platelet Volume 13.0 H Immature Granulocytes % 0.200 Neutrophils % 51.3 Lymphocytes % 29.3 Monocytes % 14.9 H Eosinophils % 3.0 Basophils % 1.3 Nucleated Red Blood 0.0 Cells % Immature Granulocytes # 0.010 Neutrophils # 3.1 Lymphocytes # 1.8 Monocytes # 0.9 Eosinophils # 0.2 Basophils # 0.1 Nucleated Red Blood 0.0 Cells # Sodium Level 139 Potassium Level 4.9 Chloride Level 101 Carbon Dioxide Level 25 Anion Gap 13 Blood Urea Nitrogen 49 #H Creatinine 9.73 #H Glucose Level 148 # Calcium Level 8.5 Phosphorus Level 8.1 H Magnesium Level 2.4 Albumin 3.7 Test 09/01/18 07:50 Bedside Glucose 111 Medications Medication Current Medications Insulin Glargine (Lantus) 15 units DAILY@2000 SC Last administered on 08/31/18 21:46; Admin Dose 15 UNITS; Start 08/25/18 at 20:00 Insulin Aspart (Novolog Insulin Pen) 5 unit WITH MEALS SC Last administered on 09/01/18 07:55; Admin Dose 5 UNIT; Start 08/25/18 at 12:00 Insulin Aspart (Novolog Insulin Pen) NOVOLOG *MILD* ALGORITHM WITH MEALS BEDTIME SC Last administered on 08/30/18 20:52; Admin Dose 1 UNIT; Start 08/25/18 at 12:00 Miscellaneous Information 1 ea NOTE XX ; Start 08/25/18 at 11:30 Glucose (Glutose) 15 gm Q15M PRN PO DECREASED GLUCOSE; Start 08/25/18 at 11:30 Glucose (Glutose) 22.5 gm Q15M PRN PO DECREASED GLUCOSE; Start 08/25/18 at 11:30 Dextrose (D50w Syringe) 25 ml Q15M PRN IV DECREASED GLUCOSE; Start 08/25/18 at 11:30 Dextrose (D50w Syringe) 50 ml Q15M PRN IV DECREASED GLUCOSE; Start 08/25/18 at 11:30 Glucagon (Glucagen) 1 mg Q15M PRN IM DECREASED GLUCOSE; Start 08/25/18 at 11:30 Glucose (Glutose) 15 gm Q15M PRN BUCCAL DECREASED GLUCOSE; Start 08/25/18 at 11:30 Carvedilol (Coreg) 12.5 mg BID PO Last administered on 09/01/18 08:18; Admin Dose 12.5 MG; Start 08/25/18 at 21:00 Escitalopram Oxalate (Lexapro) 10 mg DAILY PO Last administered on 09/01/18 08:17; Admin Dose 10 MG; Start 08/26/18 at 09:00 Furosemide (Lasix) 40 mg BID DIURETICS PO Last administered on 08/31/18 17:28; Admin Dose 40 MG; Start 08/25/18 at 18:00 Isosorbide Mononitrate (Imdur) 30 mg DAILY PO Last administered on 09/01/18 08:17; Admin Dose 30 MG; Start 08/26/18 at 09:00 Nifedipine (Procardia Xl) 60 mg BID PO Last administered on 09/01/18 08:17; Admin Dose 60 MG; Start 08/25/18 at 21:00 Polyethylene Glycol (Miralax) 17 gm DAILY PO Last administered on 09/01/18 08:17; Admin Dose 17 GM; Start 08/26/18 at 09:00 IV Flush (NS 3 ml) 3 ml PER PROTOCOL IV ; Start 08/25/18 at 11:30 Ondansetron HCl (Zofran Inj) 4 mg Q6H PRN IV NAUSEA/VOMITING Last administered on 08/29/18 08:00; Admin Dose 4 MG; Start 08/25/18 at 11:30 Heparin Sodium (Porcine) (Heparin (5000 Units/1ml)) 5,000 unit Q12 SC Last administered on 08/29/18 08:04; Admin Dose 5,000 UNIT; Start 08/25/18 at 21:00; Status Hold Clonidine (Catapres) 0.2 mg Q6H PRN PO SBP > 190 Last administered on 08/28/18 16:29; Admin Dose 0.2 MG; Start 08/25/18 at 19:00 Hydralazine HCl (Apresoline) 10 mg Q4H PRN IV ELEVATED BLOOD PRESSURE Last administered on 08/28/18 10:14; Admin Dose 10 MG; Start 08/25/18 at 20:30 Tramadol HCl (Ultram) 50 mg Q6H PRN PO PAIN LEVEL 1-3 Last administered on 08/26/18 05:51; Admin Dose 50 MG; Start 08/26/18 at 05:30 Oxycodone/ Acetaminophen (Endocet (10/ 325)) 1 tab Q6H PRN PO SEVERE PAIN LEVEL 7-10; Start 08/27/18 at 11:30 Oxycodone/ Acetaminophen (Percocet (5/ 325)) 1 tab Q6H PRN PO MODERATE PAIN LEVEL 4-6 Last administered on 08/27/18 17:43; Admin Dose 1 TAB; Start 08/27/18 at 11:30 Calcium Acetate (Phoslo) 2,001 mg WITH MEALS PO Last administered on 09/01/18 08:17; Admin Dose 2,001 MG; Start 08/28/18 at 12:00 Hydromorphone HCl (Dilaudid) 1.5 mg Q4H PRN IV SEVERE PAIN LEVEL 7-10 Last administered on 09/01/18at 06:30; Admin Dose 1.5 MG; Start 08/28/18 at 10:30 Metoclopramide HCl (Reglan) 5 mg Q4H PRN IV nausea; Start 08/28/18 at 12:30 Metoclopramide HCl (Reglan) 5 mg Q6 IV Last administered on 09/01/18at 05:20; Admin Dose 5 MG; Start 08/28/18 at 18:00 Heparin Sodium (Porcine) (Heparin (1000 Units/ml)) 4,000 unit AFTER DIALYSIS CATHETER Last administered on 08/30/18at 22:27; Admin Dose 4,000 UNIT; Start 08/30/18 at 08:00 SHAWN DOE Sep 01, 2018 08:31
[2018-09-01] MEDS ORDERED: BISACODYL (EC) 5 MG TAB PO ONE (09:00)
[2018-09-01] MEDS ORDERED: LUBIPROSTONE 24 MCG CAP PO SCH (09:00)
== END 2018-09-01 12:00 | disposition left against medical advice (07) | DRG 438 ==
LOC: E/R 07:25 → 6WM 10:10 → SUATTDRO 11:13
PROVIDERS: ADMIT Internal Medicine; ATTEND Internal Medicine
PROC: 0F798ZZ Dilation of Common Bile Duct, Via Natural or Artificial Opening Endoscopic (ICD-10-PCS; 2018-08-30)
PROC: 0FC98ZZ Extirpation of Matter from Common Bile Duct, Via Natural or Artificial Opening Endoscopic (ICD-10-PCS; principal; 2018-08-30 07:30)
DX: K85.90 Acute pancreatitis without necrosis or infection, unspecified (principal); N18.6 End stage renal disease; I12.0 Hypertensive chronic kidney disease with stage 5 chronic kidney disease or end stage renal disease; I16.1 Hypertensive emergency; E11.22 Type 2 diabetes mellitus with diabetic chronic kidney disease; Z99.2 Dependence on renal dialysis; E11.43 Type 2 diabetes mellitus with diabetic autonomic (poly)neuropathy; K31.84 Gastroparesis; E11.319 Type 2 diabetes mellitus with unspecified diabetic retinopathy without macular edema; H54.8 Legal blindness, as defined in USA
CPT/HCPCS: 71045; 74176; 74330; 80053; 80069; 82150; 82652; 82962; 83036; 83690; 83735; 84484; 85025; 85610; 85730; 90935; 93005; 96374; 96375; 96376; J0360; J0744; J1170; J1644; J1815; J2250; J2405; J2765; Q9967

== ENCOUNTER 2018-10-13 10:31 | Emergency (ER) | payer MEDICARE, OTHER ==
[~2018-10-13] VITALS: Ht 182.9 cm; Wt 92.9 kg
[2018-10-13 10:38] VITALS: Ht 182.9 cm; Wt 92.9 kg
--- NOTE | 2018-10-13 12:10 | ERD ---
ER Documentation Chief Complaint Chief Complaint ABD PAIN, FLANK PAIN, BACK PAIN, DIALYSIS PT T/TH/S HPI The patient is a 32-year-old male, presenting to the ER because of chronic abdominal pain for more than 5 months, has been seen at multiple ER for similar symptoms. He denies fever, chills, neck pain, chest pain, dyspnea, vomiting, dysuria, diarrhea, no aggravating or relieving factor. He does not smoke nor drink, smoke marijuana Past medical history: Diabetes mellitus, hypertension, depression, history of pancreatitis, anemia, gastroparesis, chronic abdominal pain, chronic kidney disease on hemodialysis Saturday and Saturday Past surgical history: He had ERCP, eye surgery, cholecystectomy, appendectomy ROS All systems reviewed and are negative except as per history of present illness. Medications Home Meds Active Scripts Insulin Aspart* (Novolog Insulin Pen*) 100 Unit/Ml Soln, 5 UNIT SC WITH MEALS, #5 VIAL Prov:ZEUS ROBLEROMelyssa . 08/11/18 Hydrocodone/Acetaminophen ([place] 5-325 Tablet) 1 Each Tablet, 1 EACH PO Q6 PRN for PAIN, #10 TAB Prov:[facility]ENTER[facility]elyssa . 08/11/18 Pantoprazole* (Protonix*) 20 Mg Tablet.dr, 20 MG PO DAILY, #30 TAB 1 Refill Prov:ANNIKACIARRA Ena 08/11/18 Nifedipine (Procardia Xl) 60 Mg Tab.er.24, 60 MG PO BID for 30 Days, #60 TAB 1 Refill Prov:[facility] 08/11/18 Carvedilol* (Coreg*) 12.5 Mg Tablet, 12.5 MG PO BID for 30 Days, #60 TAB Prov:MIKE GIFFORD MD 07/24/18 Polyethylene Glycol* (Miralax*) 17 Gm Powd.pack, 17 GM PO DAILY for 10 Days Prov:MIKE GIFFORD MD 07/24/18 Aspirin (Aspirin) 81 Mg Chew, 81 MG PO DAILY for 30 Days, TAB Prov:MIKE GIFFORD MD 07/24/18 Isosorbide Mononitrate* (Isosorbide Mononitrate*) 30 Mg Tab.er.24h, 30 MG PO DAILY for 30 Days Prov:MIKE GIFFORD MD 4/25/19 Atorvastatin* (Atorvastatin*) 40 Mg Tablet, 40 MG PO HS for 30 Days, TAB Prov:MIKE GIFFORD MD 07/24/18 Escitalopram Oxalate* (Escitalopram Oxalate*) 10 Mg Tablet, 10 MG PO DAILY for 30 Days, #30 TAB Prov:MIKE GIFFORD MD 07/24/18 Gabapentin* (Gabapentin*) 300 Mg Capsule, 300 MG PO QHS for 30 Days, #60 CAP Prov:MIKE GIFFORD MD 07/24/18 Furosemide* (Furosemide*) 40 Mg Tablet, 40 MG PO BID for 30 Days, TAB Prov:MIKE GIFFORD MD 07/24/18 Calcium Acetate* (Calcium Acetate*) 667 Mg Capsule, 2001 MG PO WITH MEALS for 28 Days, #30 CAP Prov:MIKE GIFFORD MD 07/24/18 Reported Medications Insulin Glargine* (Lantus*) 100 Unit/Ml Soln, 15 UNIT SC DAILY, #1 VIAL 08/10/18 Allergies Allergies: Coded Allergies: benazepril (Verified Allergy, Unknown, 08/25/18) PMhx/Soc History of Surgery: No Anesthesia Reaction: No Hx Neurological Disorder: No Hx Respiratory Disorders: No Hx Cardiac Disorders: Yes Hx Psychiatric Problems: No Hx Miscellaneous Medical Probl: No Hx Alcohol Use: No Hx Substance Use: Yes Hx Tobacco Use: Yes Physical Exam Vitals Vital Signs Date Temp Pulse Resp B/P (MAP) Pulse Ox O2 O2 Flow FiO2 Time Delivery Rate 10/13/18 98.5 87 18 176/93 98 Room Air 15:31 (120) 10/13/18 78 18 199/108 99 Room Air 14:57 (138) 10/13/18 76 18 200/111 100 Room Air 14:30 (140) 10/13/18 78 187/102 14:00 (130) 10/13/18 174/84 13:00 (114) 10/13/18 82 18 201/108 98 Room Air 12:30 (139) 10/13/18 97.9 93 17 210/106 99 10:38 (140) Physical Exam Const: No acute distress. Head: Atraumatic. Eyes: Normal Conjunctiva. ENT: Normal External Ears, Nose and Mouth. Neck: Full range of motion. No meningismus. Resp: Clear to auscultation bilaterally. Cardio: Regular rate and rhythm. Abd: Soft, non distended, normal bowel sounds, vague minimal abdominal discomfort, no rigidity/rebound/CVA tenderness. Skin: No petechiae or rashes. Back: No midline or flank tenderness. Ext: No cyanosis, or edema. Neur: Awake and alert. No focal deficit Psych: Normal Mood and Affect. Result Diagram: 10/13/18 1218 10/13/18 1218 Results 24 hrs Laboratory Tests Test 10/13/18 12:18 White Blood Count 7.1 10^3/ul Red Blood Count 3.42 10^6/ul Hemoglobin 10.3 g/dl Hematocrit 32.2 % Mean Corpuscular Volume 94.2 fl Mean Corpuscular Hemoglobin 30.1 pg Mean Corpuscular Hemoglobin Concent 32.0 g/dl Red Cell Distribution Width 13.7 % Platelet Count 201 10^3/UL Mean Platelet Volume 13.1 fl Immature Granulocytes % 0.600 % Neutrophils % 66.4 % Lymphocytes % 20.4 % Monocytes % 8.1 % Eosinophils % 3.5 % Basophils % 1.0 % Nucleated Red Blood Cells % 0.0 /100WBC Immature Granulocytes # 0.040 10^3/ul Neutrophils # 4.7 10^3/ul Lymphocytes # 1.4 10^3/ul Monocytes # 0.6 10^3/ul Eosinophils # 0.3 10^3/ul Basophils # 0.1 10^3/ul Nucleated Red Blood Cells # 0.0 10^3/ul Sodium Level 142 mmol/L Potassium Level 5.3 mmol/L Chloride Level 99 mmol/L Carbon Dioxide Level 26 mmol/L Anion Gap 17 Blood Urea Nitrogen 54 mg/dl Creatinine 11.36 mg/dl Est Glomerular Filtrat Rate mL/min 5 mL/min Glucose Level 110 mg/dl Calcium Level 8.7 mg/dl Total Bilirubin 0.2 mg/dl Direct Bilirubin 0.00 mg/dl Indirect Bilirubin 0.2 mg/dl Aspartate Amino Transf (AST/SGOT) 19 IU/L Alanine Aminotransferase (ALT/SGPT) 18 IU/L Alkaline Phosphatase 64 IU/L Total Protein 8.5 g/dl Albumin 4.6 g/dl Globulin 3.90 g/dl Albumin/Globulin Ratio 1.17 Lipase 379 U/L Ethyl Alcohol Level < 10.0 mg/dl Current Medications Medications Dose Sig/[place] Start Time Status Last (Trade) Ordered Route PRN Stop Time Admin Dose Reason Admin Morphine 4 mg ONCE STAT 10/13/18 DC 10/13/18 Sulfate IV 12:26 12:36 (morphine) 10/13/18 12:28 Ondansetron 4 mg ONCE STAT 10/13/18 DC 10/13/18 HCl (Zofran IV 12:26 12:35 Inj) 10/13/18 12:28 Labetalol 20 mg ONCE ONCE 10/13/18 DC 10/13/18 HCl IV 12:30 12:36 (Labetalol) 10/13/18 12:31 Labetalol 20 mg ONCE ONCE 10/13/18 DC 10/13/18 HCl IV 14:00 13:53 (Labetalol) 10/13/18 14:01 Sodium 30 gm ONCE ONCE 10/13/18 DC 10/13/18 Polystyrene PO 15:00 14:58 Sulfonate 10/13/18 15:01 (Kayexalate) Hydralazine 20 mg ONCE ONCE 10/13/18 DC 10/13/18 HCl IV 15:00 15:00 (Apresoline) 10/13/18 15:01 Procedures/[place] [address] Radiology Main Line: [phone] DIAGNOSTIC IMAGING REPORT Patient: RITA ORTEGA : 1985 Age: 32 Sex: M MR #: [id number] DOS: 10/13/18 1230 Ordering MD: FARIHA DARDEN MD Location: E/R Room/Bed: PROCEDURE: XR Chest. CLINICAL INDICATION: Shortness of breath TECHNIQUE: Single portable view of the chest was obtained. COMPARISON: 08/25/2018 FINDINGS: Cardiac/vascular structures: Stable mildly enlarged cardiomediastinal silhouette. Right IJ PermCath tip over the distal SVC. Pulmonary: Lungs are clear. No pleural effusion. No evidence of pneumothorax. Osseous structures: Normal Soft tissues: Normal IMPRESSION: No acute cardiopulmonary disease. Stable mild cardiomegaly with right IJ PermCath in appropriate position. RPTAT:AAJJ Physician Evangelina Date Time Electronically viewed and signed by Abdias Stokes Physician on 10/13/2018 13:44 MH/ CC: FARIHA DARDEN MD [id number] MEDICAL MAKING DECISION: The patient is a 32-year-old male, presenting with chronic abdominal pain of unclear etiology, acute mild hyperkalemia, acute hypertensive urgency. He was treated with morphine 4 mg IV for pain, Zofran formula IV for nausea, labetalol 20 mg IV and hydralazine 20 mg IV for acute hypertensive urgency, Kayexalate 30 g p.o. for acute mild hyperkalemia with good response. He is stable for outpatient follow-up The differential diagnoses considered include but are not limited to adhesion, choledocholithiasis, cholangitis, pancreatitis, hepatitis, gastritis, peptic ulcer disease, gastric ulcer, cystitis, diverticulitis, partial small bowel obstruction. Departure Diagnosis: Primary Impression: Chronic abdominal pain Additional Impressions: Hyperkalemia Hypertensive urgency Anemia Condition: Good Comments I discussed the findings with the patient. I advised the patient to follow-up with the primary physician in about 1-2 days for reevaluation and referral to gastroenterology, sooner if needed and return if any concern. Disclaimer: Inadvertent spelling and grammatical errors are likely due to EHR/ dictation software use and do not reflect on the overall quality of patient care. Also, please note that the electronic time recorded on this note does not necessarily reflect the actual time of the patient encounter. FARIHA DARDEN MD Oct 13, 2018 12:10
[2018-10-13] MEDS ORDERED: morphine 4 MG/ML VIAL IV STA (12:26)
[2018-10-13] MEDS ORDERED: ONDANSETRON 4 MG INJ IV STA (12:26)
[2018-10-13] MEDS ORDERED: LABETALOL HCL 20MG INJ IV ONE ×2 (12:30→14:00)
[2018-10-13] MEDS ORDERED: hydrALAzine 20 MG INJ IV ONE (15:00)
[2018-10-13] MEDS ORDERED: NA POLYST SULFON 15 GM/60 ML BTL PO ONE (15:00)
[2018-10-13 15:31] VITALS: BP 176/93; PULSE 87; RESP 18
== END 2018-10-13 16:23 | disposition home or self-care (01) ==
LOC: E/R 10:31
DX: E87.5 Hyperkalemia (principal); I16.0 Hypertensive urgency; D64.9 Anemia, unspecified; I12.9 Hypertensive chronic kidney disease with stage 1 through stage 4 chronic kidney disease, or unspecified chronic kidney disease; N18.9 Chronic kidney disease, unspecified; E11.22 Type 2 diabetes mellitus with diabetic chronic kidney disease; Z79.4 Long term (current) use of insulin; Z99.2 Dependence on renal dialysis; Z79.82 Long term (current) use of aspirin
CPT/HCPCS: 36415; 71045; 80053; 80307; 83690; 85025; 96374; 96375; 96376; 99284; J0360; J2270; J2405